=== PATIENT | male | born 1935 | race Caucasian/White ===

== ENCOUNTER → 2018-02-28 07:32 | Outpatient (CLI) | payer MEDICARE, OTHER, SELFPAY ==
[2018-02-28 09:29] LABS: Prostate Specific Antigen < 0.064 ng/mL (0.10-4.00)
== END ==
PROVIDERS: Family Provider Family Medicine; PCP Family Medicine; Visit Provider Urology
DX: C61 Malignant neoplasm of prostate (principal)
CPT/HCPCS: 36415; 84153

== ENCOUNTER → 2018-03-08 13:06 | Outpatient (CLI) | payer MEDICARE, OTHER, SELFPAY ==
--- NOTE | 2018-03-08 13:08 | DI.RAD.S_ITS ---
PROCEDURE: FL BARIUM SWALLOW W SPEECH INDICATIONS: dificulty swallowing TECHNIQUE: Examination was conducted in conjunction with speech pathology per standard protocol. In the lateral projection, filming was performed of the patient swallowing. AP projection filming may also be performed with patient swallowing. COMPARISON: None. FINDINGS: Function: The oral preparatory phase appears normal, with proper containment. The subsequent oral propulsive phase, pharyngeal phase, and esophageal phase of swallowing also appear normal with all proffered substances. No laryngotracheal penetration or aspiration. There was occasional vallecular pooling. Morphology: No cricopharyngeal bar is identified. No cervical esophageal webs. No Zenker's diverticulum. No strictures. IMPRESSION: No aspiration identified. Dictated by: Harvey Shukla M.D. on 03/08/2018 at 17:01 Approved by: Harvey Shukla M.D. on 03/08/2018 at 17:02
== END ==
PROVIDERS: Family Provider Family Medicine; PCP Family Medicine; Visit Provider Family Medicine
DX: R13.10 Dysphagia, unspecified (principal)
CPT/HCPCS: 74230; 92611

== ENCOUNTER 2018-04-14 10:43 | Emergency (ER) | payer MEDICARE, OTHER, SELFPAY ==
[2018-04-14 10:53] VITALS: BP 175/72; PULSE 55; RESP 16; TEMP 36.2; O2SAT 97; BMI 30.7
--- NOTE | 2018-04-14 11:18 | DIET.PN ---
States has had headache since spinal tap in [place] Apr 02. States h/a started 2 days after
--- NOTE | 2018-04-14 11:38 | DI.RAD.S_ITS ---
PROCEDURE: XR CHEST 1V INDICATIONS: left jaw pain - cardiac w/u TECHNIQUE: One view of the chest was acquired. COMPARISON: [facility], , CHEST 2 VIEW, 06/13/2016, 12:26. FINDINGS: Surgical changes and devices: None. Lungs and pleura: No pleural effusions or pneumothorax. There are low lung volumes with bibasilar medial opacities compatible with atelectasis or developing consolidation. Mild interstitial prominence is redemonstrated which appears chronic. Mediastinum: Mediastinal contours appear unchanged. Heart size is enlarged. Bones and chest wall: No suspicious bony lesions. Overlying soft tissues appear unremarkable. IMPRESSION: 1. Low lung volumes with medial bibasilar opacities compatible with atelectasis or developing consolidation. Dictated by: Eddie Waters M.D. on 04/14/2018 at 12:45 Approved by: Eddie Waters M.D. on 04/14/2018 at 12:46
[2018-04-14] MEDS: MAGNESIUM SULFATE 2 GM/50 ML PIGGYBACK IV (12:04)
[2018-04-14] MEDS: SODIUM CHLORIDE 0.9% 1,000 ML 1000 ML IV (12:04)
[2018-04-14] MEDS: CAFFEINE CITRATE 60 MG/3 ML VIAL IV (12:04)
[2018-04-14] MEDS: diphenhydrAMINE 50 MG/ML VIAL 25 MG IV (12:06)
[2018-04-14] MEDS: PROCHLORPERAZINE 10 MG/2 ML VIAL IV (12:06)
[2018-04-14] MEDS: KETOROLAC 60 MG/2 ML VIAL 15 MG IV (12:06)
[2018-04-14] MEDS: ACETAMINOPHEN 325 MG TABLET 650 MG PO (12:09)
[2018-04-14 12:46] VITALS: BP 182/61; PULSE 48; O2SAT 99
[2018-04-14 13:29] LABS: Alanine Aminotransferase 36 IU/L (21-72); Albumin 3.5 g/dL (3.5-5.0); Albumin Globulin Ratio 1.3 (1.0-2.8); Alkaline Phosphatase 45 U/L (38-126); Aspartate Aminotransferase 37 IU/L (17-59); Bilirubin Total 0.5 mg/dL (0.2-1.3); Blood Urea Nitrogen 24 mg/dL (9-20); Calcium 8.7 mg/dL (8.4-10.2); Carbon Dioxide 27 mmol/L (22-32); Chloride 106 mmol/L (98-107); Estimated Glomerular Filt Rate > 60.0 mL/min (>60); Globulin 2.8 g/dL (1.7-4.1); Glucose 99 mg/dL (80-110); Sodium 140 mmol/L (137-145); Total Protein 6.3 g/dL (6.3-8.2)
[2018-04-14 13:30] VITALS: BP 151/55; PULSE 45; O2SAT 95
[2018-04-14 13:32] LABS: HEMOLYSIS 51 (0-50)
[2018-04-14 13:44] LABS: Troponin I < 0.012 ng/mL (0.01-0.034)
[2018-04-14 13:45] LABS: Erythrocyte Sedimentation Rate 16 MM/HR (0-15)
[2018-04-14 14:01] LABS: Add Manual Diff / Slide Review NO; Basophils Percent Auto 0.6 % (0-2); Eosinophils Percent Auto 3.6 % (2-4); Hematocrit 38.3 % (41-53); Hemoglobin 13.2 g/dL (13.5-17.5); Lymphocytes Percent Auto 13.7 % (25-40); Mean Corpuscular HGB Conc 34.3 % (30-36); Mean Corpuscular Hemoglobin 32.8 PG (26-34); Mean Corpuscular Volume 95.6 fL (80-100); Monocytes Percent Auto 9.5 % (3-14); Neutrophils Absolute Auto 5500 /uL (3000-5900); Neutrophils Percent Auto 72.6 % (50-75); Platelet Count 153 X10^3/uL (150-400); Red Blood Cell Count 4.01 X10^6/uL (4.5-5.9); Red Cell Distribution Width 13.8 % (11.6-14.8); White Blood Cell Count 7.6 X10^3/uL (4.5-11.0)
[2018-04-14 14:38] VITALS: BP 128/41; PULSE 45; RESP 15; O2SAT 97
[2018-04-14] MEDS: DEXAMETHASONE 10 MG/ML VIAL IV (14:47)
--- NOTE | 2018-04-14 14:48 | ED_ITS ---
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 Patient was vacationing in [facility] when he developed forehead sparing left-sided facial weakness, he was hospitalized from 04/02/18 for 3 days with an evaluation included a reportedly negative CT head, MRI, and lumbar puncture followed by discharge with conservative management. During the course of his hospitalization the patient developed the present complaints, as the jaw pain was vaguely consistent with jaw discomfort he felt prior to heart attack, and as the patient did not want to extend his hospitalization [place] he These details to himself and was discharged, in the intervening time the patient's has had no change in symptoms , no worsening with physical activity. Patient notes he is also previously had jaw pain, which is similar to today's pain, and that was independent of his heart attack, headache and extensive negative evaluation including dental care and apparently resolved on its own. Patient denies discomfort on opening or closing his jaw, or clicking. M/S/F/SocHx notable for: CAD, HTN, HLD, GERD, peripheral polyneuropathy, Waters's palsy, measles, polio; remainder reviewed with patient and in chart. ROS: Negative constitutional, eye, cardiovascular, pulmonary, GI, , MSK, skin , neurologic, psychiatric, endocrine unless noted in the HPI. Exam Gen: Pleasant, non-toxic appearing, resting comfortably. HEENT: AT, TMs clear bilaterally without effusions, erythema, or lesions, preauricular, pinna, and external canal skin without lesions. Dentition intact without visible caries. No frontal or maxillary sinus TTP. Temples without TTP bilaterally, equal 2+ temporal artery pulses. No paraspinal posterior neck pain. Resp: CTAB Card: RRR GI: NT/ND : Deferred MSK: No visible deformities, strength and tone WNL. No C, T, L spine tenderness to palpation or palpable abnormalities. Skin: Normal color with no visible lesions. Back without any erythema, swelling , warmth, or soft tissue tenderness to palpation. Reported site of LP (mid thoracic region) without identifiable puncture laureano or lesion. Neuro: Gen AO x 3, no facial asymmetry, no gaze preference, no slurring of speech. CN II-III: pupils equal and reactive (->2mm bilaterally); III, IV, : EOMI, V1-V3: sensation to touch bilaterally intact; VII: no facial asymmetry ( frown / smile); VIII: no nystagmus; X: phonation intact, uvula midline; XI: trapezius 5/5 bilaterally, XII: tongue midline. Psych: Mood and affect appropriate. Labs / Imaging (pertinent): WBC 7.6, hemoglobin 13.2, ESR 16 sodium 140, potassium 5.0, troponin <0.012 CXR: low lung volumes with medial bibasilar opacities compatible with atelectasis or developing consolidation. EKG: SR 50 bpm, no ST segment elevations or depressions. Sinus arrhythmia. MDM Previous chart, nursing note, and vitals reviewed. 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 DDx: migraine / tension headache, cluster headache, sentinel bleed/SAH, infection (QUALITY ASSURANCE ENGINEER vs SEWELL secondary to non-QUALITY ASSURANCE ENGINEER focal infection), tumor/mass effect, hypertensive encephalopathy, glaucoma or iritis, idiopathic intracranial hypertension, cavernous sinus thrombosis, temporal arteritis. Evaluation: migraine/tension headache, cluster, [place] bleed, infection, mass , hypertensive encephalopathy, glaucoma, iritis, idiopathic and research attorney hypertension, thrombosis, temporal arteritis, tic douloureux, post-LP headache. ED Course: patient with a unremarkable neuro exam, given the absence of temporal tenderness, palpable abnormalities, normal pulses, and age-appropriate ESR strongly doubt temporal arteritis. Given the recent and unremarkable neuro imaging repeat imaging is not presently indicated, exam and history without evidence of tic douloureux. Cardiac equivalent considered, however given the lack of provocation with exercise, prior episodes of similar pain, and resolution with a migraine cocktail as well as a nonischemic EKG and a negative troponin's strongly doubt this represents unstable angina or ACS. Patient recommended to follow up with his PCP. Given onset of symptoms, post-LP headache appears to be most likely. Patient was given IV caffeine, Compazine, Toradol, PO acetaminophen, IV diphenhydramine, 1 L normal saline, and had resolution of headache. Patient notes that his headache wax and wane over the last week and was NSAID responsive, in an attempt to reduce rebound headache the patient given 10 mg dexamethasone prior to discharge. Patient was discharged with PCP follow-up recommended. Impression: headache (please reference below for remainder of encounter information) Related Data Home Medications Medication Instructions Recorded Confirmed [COQ10] #0 11/21/16 04/14/18 ascorbic acid (vitamin C) 500 mg PO QDAY #0 11/21/16 04/14/18 cholecalciferol (vitamin D3) 3,000 unit PO #0 11/21/16 04/14/18 [Vitamin D3] cyanocobalamin (vitamin B-12) 5,000 mcg PO #0 11/21/16 04/14/18 magnesium glycinate [Mag Glycinate] 400 mg PO #0 11/21/16 04/14/18 metoprolol tartrate 12.5 mg PO BID #0 11/21/16 04/14/18 rosuvastatin [Crestor] 5 mg PO QDAY #0 11/21/16 04/14/18 tamsulosin [Flomax] 0.4 mg PO QDAY #0 11/21/16 04/14/18 [VITAMIN K2] 100 mcg PO HS #0 03/06/17 04/14/18 Previous Rx's Medication Instructions Recorded acyclovir 400 mg tablet 400 mg PO 5XD 10 Days #50 tab 04/11/18 Allergies Allergy/AdvReac Type Severity Reaction Status Date / Time No Known Drug Allergies Allergy Verified 04/14/18 10:58 PFSH Social History marital status: Smoking Status: Former smoker alcohol intake: current substance use type: does not use Exam Initial Vital Signs Initial Vital Signs: Vital Signs Temperature 97.1 F L 04/14/18 10:53 Pulse Rate 55 L 04/14/18 10:53 Respiratory Rate 16 04/14/18 10:53 Blood Pressure 175/72 H 04/14/18 10:53 Pulse Oximetry 97 04/14/18 10:53 Course Orders Ordered: ED Orders 04/14/18 11:12 Comprehensive Metabolic Panel Stat Erythrocyte Sedimentation Rate Stat Troponin I Stat 04/14/18 11:38 XR chest 1V Stat 04/14/18 12:45 Complete Blood Count AUTO DIFF Stat Discontinued Medications Acetaminophen (Tylenol) 650 mg PO NOW ONE Stop: 04/14/18 11:39 Last Admin: 04/14/18 12:09 Dose: 650 mg Caffeine Citrate (Caffeine Citrate) 60 mg IV NOW ONE Stop: 04/14/18 11:39 Last Admin: 04/14/18 12:04 Dose: 60 mg Dexamethasone (Decadron) 10 mg IV NOW ONE Stop: 04/14/18 14:39 Last Admin: 04/14/18 14:47 Dose: 10 mg Diphenhydramine HCl (Benadryl) 25 mg IV NOW ONE Stop: 04/14/18 11:39 Last Admin: 04/14/18 12:06 Dose: 25 mg Magnesium Sulfate (Magnesium Sulfate) 2 gm in 50 mls @ 25 mls/hr IV NOW ONE Stop: 04/14/18 13:37 Last Infusion: 04/14/18 13:28 Dose: 0 mls/hr Admin: 04/14/18 12:04 Dose: 25 mls/hr Sodium Chloride (Normal Saline 0.9%) 1,000 mls @ 1,000 mls/hr IV BOLUS ONE Stop: 04/14/18 12:37 Last Infusion: 04/14/18 13:13 Dose: 0 mls/hr Admin: 04/14/18 12:04 Dose: 1,000 mls/hr Ketorolac Tromethamine (Toradol) 15 mg IV NOW ONE Stop: 04/14/18 11:39 Last Admin: 04/14/18 12:06 Dose: 15 mg Prochlorperazine (Compazine) 10 mg IV NOW ONE Stop: 04/14/18 11:39 Last Admin: 04/14/18 12:06 Dose: 10 mg Vital Signs - 8 hr 04/14/18 10:53 04/14/18 12:46 04/14/18 13:30 Temperature 97.1 F L Pulse Rate 55 L 48 L 45 L Respiratory Rate 16 Blood Pressure 175/72 H Blood Pressure [Right Arm] 182/61 H 151/55 H Pulse Oximetry 97 99 95 04/14/18 14:38 Temperature Pulse Rate 45 L Respiratory Rate 15 Blood Pressure Blood Pressure [Right Arm] 128/41 H Pulse Oximetry 97 MDM - Headache Lab Data Result diagrams: 04/14/18 12:45 04/14/18 11:12 Lab Results 04/14/18 04/14/18 04/14/18 Range/Units 11:12 11:12 11:12 WBC (4.5-11.0) X10^3/uL RBC (4.5-5.9) X10^6/uL Hgb (13.5-17.5) g/dL Hct (41-53) % MCV (80-100) fL MCH (26-34) PG MCHC (30-36) % RDW (11.6-14.8) % Plt Count (150-400) X10^3/uL Neut % (Auto) (50-75) % Lymph % (Auto) (25-40) % [place] % (Auto) (3-14) % Eos % (Auto) (2-4) % Baso % (Auto) (0-2) % Neut # (Auto) (0389-0021) /uL ESR 16 H (0-15) MM/HR Sodium 140 (137-145) mmol/L Potassium 5.0 (3.4-5.1) mmol/L Chloride 106 (98-107) mmol/L Carbon Dioxide 27 (22-32) mmol/L BUN 24 H (9-20) mg/dL Creatinine 0.80 (0.66-1.25) mg/dL Estimated GFR > 60.0 (>60) mL/min BUN/Creatinine Ratio 30.0 H (6-22) Glucose 99 (80-110) mg/dL Calcium 8.7 (8.4-10.2) mg/dL Total Bilirubin 0.5 (0.2-1.3) mg/dL AST 37 (17-59) IU/L ALT 36 (21-72) IU/L Alkaline Phosphatase 45 (38-126) U/L Troponin I < 0.012 (0.01-0.034) ng/mL Total Protein 6.3 (6.3-8.2) g/dL Albumin 3.5 (3.5-5.0) g/dL Globulin 2.8 (1.7-4.1) g/dL Albumin/Globulin Ratio 1.3 (1.0-2.8) 04/14/18 Range/Units 12:45 WBC 7.6 (4.5-11.0) X10^3/uL RBC 4.01 L (4.5-5.9) X10^6/uL Hgb 13.2 L (13.5-17.5) g/dL Hct 38.3 L (41-53) % MCV 95.6 (80-100) fL MCH 32.8 (26-34) PG MCHC 34.3 (30-36) % RDW 13.8 (11.6-14.8) % Plt Count 153 (150-400) X10^3/uL Neut % (Auto) 72.6 (50-75) % Lymph % (Auto) 13.7 L (25-40) % [place] % (Auto) 9.5 (3-14) % Eos % (Auto) 3.6 (2-4) % Baso % (Auto) 0.6 (0-2) % Neut # (Auto) 5500 (8034-0759) /uL ESR (0-15) MM/HR Sodium (137-145) mmol/L Potassium (3.4-5.1) mmol/L Chloride (98-107) mmol/L Carbon Dioxide (22-32) mmol/L BUN (9-20) mg/dL Creatinine (0.66-1.25) mg/dL Estimated GFR (>60) mL/min BUN/Creatinine Ratio (6-22) Glucose (80-110) mg/dL Calcium (8.4-10.2) mg/dL Total Bilirubin (0.2-1.3) mg/dL AST (17-59) IU/L ALT (21-72) IU/L Alkaline Phosphatase (38-126) U/L Troponin I (0.01-0.034) ng/mL Total Protein (6.3-8.2) g/dL Albumin (3.5-5.0) g/dL Globulin (1.7-4.1) g/dL Albumin/Globulin Ratio (1.0-2.8) Discharge Plan Departure Prescriptions: No Action acyclovir 400 mg tablet 400 mg PO 5XD 10 Days Qty: 50 RF: 0 tamsulosin [Flomax] 0.4 MG capsule,extended release 24hr 0.4 mg PO QDAY Qty: 0 RF: 0 [COQ10] Qty: 0 RF: 0 metoprolol tartrate 25 MG tablet 12.5 mg PO BID Qty: 0 RF: 0 cyanocobalamin (vitamin B-12) 1,000 MCG tablet extended release 5,000 mcg PO Qty: 0 RF: 0 ascorbic acid (vitamin C) 500 MG tablet 500 mg PO QDAY Qty: 0 RF: 0 rosuvastatin [Crestor] 5 MG tablet 5 mg PO QDAY Qty: 0 RF: 0 magnesium glycinate [Mag Glycinate] 100 MG tablet 400 mg PO Qty: 0 RF: 0 cholecalciferol (vitamin D3) [Vitamin D3] 2,000 UNIT capsule 3,000 unit PO Qty: 0 RF: 0 [VITAMIN K2] 100 mcg PO HS Qty: 0 RF: 0
== END 2018-04-14 15:11 | disposition home or self-care (01) ==
PROVIDERS: Emergency Provider Emergency Medicine; Family Provider Family Medicine; PCP Family Medicine
DX: R51 Headache (principal)
CPT/HCPCS: 36591; 71045; 80053; 84484; 85025; 85651; 96365; 96375; 99283; 99284; J0706; J0780; J1100; J1200; J1885

== ENCOUNTER 2018-04-16 15:30 | Outpatient (RCR) | payer MEDICARE, OTHER, SELFPAY | END 2019-01-06 16:32 | disposition home or self-care (01) | LOC: SP 15:30 | PROVIDERS: Family Provider Family Medicine; PCP Family Medicine; Visit Provider Family Medicine | DX: R49.0 Dysphonia (principal); R13.10 Dysphagia, unspecified | CPT/HCPCS: 92526 ==

== ENCOUNTER → 2018-06-14 09:14 | Outpatient (CLI) | payer MEDICARE, OTHER, SELFPAY ==
[2018-06-14 11:04] LABS: Add Manual Diff / Slide Review NO; Basophils Percent Auto 0.8 % (0-2); Eosinophils Percent Auto 2.2 % (2-4); Hematocrit 42.6 % (41-53); Hemoglobin 14.2 g/dL (13.5-17.5); Lymphocytes Percent Auto 18.2 % (25-40); Mean Corpuscular HGB Conc 33.4 % (30-36); Mean Corpuscular Hemoglobin 32.5 PG (26-34); Mean Corpuscular Volume 97.4 fL (80-100); Monocytes Percent Auto 9.9 % (3-14); Neutrophils Absolute Auto 3400 /uL (3000-5900); Neutrophils Percent Auto 68.9 % (50-75); Platelet Count 152 X10^3/uL (150-400); Red Blood Cell Count 4.38 X10^6/uL (4.5-5.9); Red Cell Distribution Width 13.4 % (11.6-14.8); White Blood Cell Count 4.9 X10^3/uL (4.5-11.0)
[2018-06-14 11:30] LABS: Blood Urea Nitrogen 24 mg/dL (9-20); Calcium 8.5 mg/dL (8.4-10.2); Carbon Dioxide 21 mmol/L (22-32); Chloride 106 mmol/L (98-107); Cholesterol 169 mg/dL (140-199); Estimated Glomerular Filt Rate > 60.0 mL/min (>60); Glucose 101 mg/dL (80-110); HDL Cholesterol 65 mg/dL (40-60); LDL Cholesterol Calculated 90 mg/dL (<100); Sodium 140 mmol/L (137-145); Triglycerides 68 mg/dL (35-150)
[2018-06-14 11:34] LABS: HEMOLYSIS 106 (0-50)
== END ==
PROVIDERS: PCP Family Medicine; Visit Provider Internal Medicine Cardiovascular Disease
DX: I10 Essential (primary) hypertension (principal)
CPT/HCPCS: 36415; 80048; 80061; 85025

== ENCOUNTER → 2018-12-16 11:10 | Outpatient (CLI) | payer MEDICARE, OTHER, SELFPAY ==
[2018-12-16 13:21] LABS: Vitamin B12 > 1000 pg/mL (239-931)
[2018-12-19 05:59] LABS: Vitamin B6 37.3 ng/mL (2.1-21.7)
== END ==
PROVIDERS: PCP Nurse Practitioner Family; Visit Provider Nurse Practitioner Family
DX: G62.9 Polyneuropathy, unspecified (principal)
CPT/HCPCS: 36415; 82607; 84207

== ENCOUNTER 2018-12-18 09:03 | Observation (INO) | payer MEDICARE, OTHER, SELFPAY ==
[2018-12-18] VITALS (11 sets, daily range): BP systolic 117–167; BP diastolic 51–78; PULSE 55–78; RESP 13–21; TEMP 36.2–36.6; O2SAT 94–99; BMI 29.0
--- NOTE | 2018-12-18 09:56 | ED.GIBLEED ---
HPI - GI Bleed General Chief complaint: GI Bleed Stated complaint: RECTAL BLEEDING Time Seen by Provider: 12/18/18 09:46 Source: patient Mode of arrival: ambulatory Limitations: no limitations History of Present Illness HPI Narrative: Patient 83-year-old gentleman who presents with bright red blood per rectum. He states he was constipated for a while he took milk of magnesia to help with constipation which it did. He took a couple of times once yesterday as well. This morning he woke up at 3:00 a.m. that he would have another bowel movement and then it was suddenly bloody. He now has no morning he is wearing a depends depends is grossly positive for blood. He does take aspirin daily has a history of cardiac stents. He has no syncopal episodes or presyncope. No chest pain or shortness of breath. he has no abdominal pain and no warning. No history of hemorrhoids MD complaint: gross hematochezia Severity: mild Relieving factors: none Exacerbating factors: none Associated symptoms: denies other symptoms Related Data Home Medications Medication Instructions Recorded Confirmed CoQ-10 400 mg PO QPM #0 11/21/16 12/18/18 Mag Glycinate 400 mg PO DAILY #0 11/21/16 12/18/18 ascorbic acid (vitamin C) 500 mg PO DAILY #0 11/21/16 12/18/18 tamsulosin [Flomax] 0.8 mg PO QPM #0 11/21/16 12/18/18 [VITAMIN K2] 100 mcg PO QPM #0 03/06/17 12/18/18 alpha lipoic acid 600 mg capsule 600 mg PO DAILY 12/11/18 12/18/18 aspirin 81 mg tablet,delayed 81 mg PO DAILY 12/11/18 12/18/18 release atorvastatin 10 mg tablet 5 mg PO BEDTIME tab 12/11/18 12/18/18 lisinopril 20 mg tablet 20 mg PO QPM 12/11/18 12/18/18 nitroglycerin 0.4 mg sublingual 0.4 mg SL Q5-15M PRN 12/11/18 12/18/18 tablet rosuvastatin 5 mg tablet 2.5 mg PO 3XW #0 tab 12/11/18 12/18/18 solifenacin 10 mg tablet 10 mg PO DAILY 12/11/18 12/18/18 Nerve Support Formula 1 dose PO DAILY 12/18/18 12/18/18 Vitamin D3 1,500 units PO DAILY 12/18/18 12/18/18 cyanocobalamin (vitamin B-12) 5,000 mcg SUBLINGUAL DAILY 12/18/18 12/18/18 [Vitamin B-12] metoprolol succinate 25 mg PO DAILY 12/18/18 12/18/18 Allergies Allergy/AdvReac Type Severity Reaction Status Date / Time No Known Drug Allergies Allergy Verified 12/18/18 09:24 Review of Systems Review of Systems ROS Unobtainable: All systems reviewed & are unremarkable except as noted in HPI and below Constitutional Denies chills, Denies fever(s), Denies lethargy and Denies weakness Eyes Denies change in vision, Denies eye discharge, Denies irritation and Denies loss of vision Cardiovascular Denies chest pain, Denies irregular heart rhythm, Denies lightheadedness, Denies palpitations, Denies dyspnea, Denies dyspnea on exertion and Denies orthopnea Respiratory Denies cough, Denies dyspnea, Denies dyspnea on exertion and Denies wheezing Gastrointestinal Gastrointestinal: Reports as per HPI Musculoskeletal Denies back pain, Denies muscle weakness, Denies numbness and Denies tingling Integumentary/Breasts Denies pruritus, Denies erythema, Denies rash and Denies wounds Neurologic Denies loss of vision, Denies numbness, Denies tingling and Denies weakness Endocrine Denies palpitations Allergic/Immunologic Denies wheezing [facility] Medical History Non-allergic rhinitis (Chronic) Balance problems (Chronic 02/08/16) Coronary artery disease involving [place] coronary artery of [place] heart without angina pectoris (Chronic 02/08/16) Essential hypertension (Chronic 02/08/16) History of malignant neoplasm of prostate (Chronic 04/08/15) Pure hypercholesterolemia (Chronic 02/08/16) Spinal stenosis of lumbar region (Chronic 02/08/16) Statin intolerance (Chronic 02/08/16) Gastroesophageal reflux disease (Chronic 06/13/16) Fatigue (Chronic 08/03/16) Dysphagia (Chronic 09/04/16) Vitamin D deficiency (Chronic 11/21/16) Left foot drop (Chronic 03/06/17) Peripheral polyneuropathy (Chronic 03/06/17) Coronary artery disease (Chronic 2009) GERD (gastroesophageal reflux disease) (Chronic Unknown) Hearing loss (Chronic 2015) Hypercholesterolemia (Chronic Unknown) Hypertension (Chronic Unknown) Lumbar disc disease (Chronic 2013) Spinal stenosis (Chronic Unknown) Chickenpox (Resolved) Hx of myocardial infarction (Resolved Unknown) Measles (Resolved) Polio (Resolved 1950) Prostate cancer (Resolved 2008) Headache (Inactive) Surgical History History of prostate surgery (Resolved 2009) Hx of heart surgery (Resolved 2008) Hx of hernia repair (Resolved Unknown) Status post laminectomy Family History Father No problems noted. Mother Cancer Grandfather No problems noted. Grandmother No problems noted. Grandfather No problems noted. Grandmother Cancer Social History marital status: Smoking Status: Former smoker second hand exposure: No alcohol intake: current substance use type: does not use Family History Father No problems noted. Mother Cancer Grandfather No problems noted. Grandmother No problems noted. Grandfather No problems noted. Grandmother Cancer Social History marital status: household members: none Smoking Status: Former smoker second hand exposure: No alcohol intake: current substance use type: does not use Comment: PCP: Loan Gomez Exam Initial Vital Signs Initial Vital Signs: Vital Signs Temperature 97.7 F 12/18/18 09:24 Pulse Rate 78 12/18/18 09:24 Respiratory Rate 20 12/18/18 09:24 Blood Pressure 117/59 L 12/18/18 09:24 Pulse Oximetry 96 12/18/18 09:24 GENERAL: Alert very nice elderly male no acute distress HEENT: Head atraumatic,EOMI, pupils reactive, face symmetri CARDIOVASCULAR: Regular rate and rhythm without murmurs, rubs or gallops. RESPIRATORY: Breath sounds equal bilaterally, no wheezes rales or rhonchi. ABDOMEN: Soft, nontender. Normoactive bowel sounds all 4 quadrants. No guarding or rebound. RECTAL: Grossly positive no external hemorrhoids no internal hemorrhoids appreciated EXTREMITIES: Normal range of motion, no clubbing or edema. Neurovascularly intact NEUROLOGICAL: Alert and oriented x4.Normal gait and speech. Cranial nerves II through XII grossly intact. SKIN: Warm, dry, no laceration, no petechiae, no rashes or lesions. Course Orders Ordered: ED Orders 12/18/18 10:10 Complete Blood Count AUTO DIFF Stat Comprehensive Metabolic Panel Stat Partial Thromboplastin Time Stat Prothrombin Time INR Stat Type and Screen Stat 12/18/18 12:50 Hematocrit Stat 12/18/18 13:25 XR chest 1V Stat Discontinued Medications Polyethylene Glycol/Electrolytes (Golytely Solution) 4,000 ml PO NOW ONE Stop: 12/18/18 13:16 Vital Signs - 8 hr 12/18/18 09:24 12/18/18 10:30 12/18/18 11:00 Temperature 97.7 F Pulse Rate 78 65 55 L Respiratory Rate 20 20 13 Blood Pressure 117/59 L Blood Pressure [Right Arm] 121/51 L 132/63 Pulse Oximetry 96 97 94 12/18/18 12:05 12/18/18 12:20 12/18/18 12:50 Temperature Pulse Rate 67 66 65 Respiratory Rate 21 16 19 Blood Pressure Blood Pressure [Right Arm] 126/57 L 126/57 L 136/52 L Pulse Oximetry 96 96 12/18/18 13:32 12/18/18 14:22 Temperature 97.5 F L Pulse Rate 64 67 Respiratory Rate 18 18 Blood Pressure 140/78 Blood Pressure [Right Arm] 140/60 Pulse Oximetry 97 99 MDM - GI Bleed Lab Data Attestation: I reviewed the patient's lab results. Result diagrams: 12/18/18 12:50 12/18/18 10:10 Lab Results 12/18/18 12/18/18 12/18/18 Range/Units 10:10 10:10 10:10 WBC 6.6 (4.5-11.0) X10^3/uL RBC 4.12 L (4.5-5.9) X10^6/uL Hgb 13.4 L (13.5-17.5) g/dL Hct 39.7 L (41-53) % MCV 96.3 (80-100) fL MCH 32.4 (26-34) PG MCHC 33.7 (30-36) % RDW 13.4 (11.6-14.8) % Plt Count 135 L (150-400) X10^3/uL Neut % (Auto) 80.3 H (50-75) % Lymph % (Auto) 10.7 L (25-40) % [place] % (Auto) 7.6 (3-14) % Eos % (Auto) 1.0 L (2-4) % Baso % (Auto) 0.4 (0-2) % Neut # (Auto) 5300 (9985-6365) /uL Lymph # (Auto) 700 L (4198-6138) /uL [place] # (Auto) 500 (0-900) /uL Eos # (Auto) 100 (0-450) /uL Baso # (Auto) 0 (0-100) /uL PT 11.7 (10.1-12.7) SECONDS INR 1.0 (0.9-1.3) APTT 30 (26.4-36.2) SECONDS Sodium 139 (137-145) mmol/L Potassium 4.2 (3.4-5.1) mmol/L Chloride 109 H (98-107) mmol/L Carbon Dioxide 22 (22-32) mmol/L BUN 24 H (9-20) mg/dL Creatinine 0.70 (0.66-1.25) mg/dL Estimated GFR > 60.0 (>60) mL/min BUN/Creatinine Ratio 34.3 H (6-22) Glucose 120 H (80-110) mg/dL Calcium 8.7 (8.4-10.2) mg/dL Total Bilirubin 0.3 (0.2-1.3) mg/dL AST 23 (17-59) IU/L ALT 27 (21-72) IU/L Alkaline Phosphatase 53 (38-126) U/L Total Protein 6.5 (6.3-8.2) g/dL Albumin 3.8 (3.5-5.0) g/dL Globulin 2.7 (1.7-4.1) g/dL Albumin/Globulin Ratio 1.4 (1.0-2.8) Blood Type Antibody Screen 12/18/18 12/18/18 Range/Units 10:10 12:50 WBC (4.5-11.0) X10^3/uL RBC (4.5-5.9) X10^6/uL Hgb (13.5-17.5) g/dL Hct 40.8 L (41-53) % MCV (80-100) fL MCH (26-34) PG MCHC (30-36) % RDW (11.6-14.8) % Plt Count (150-400) X10^3/uL Neut % (Auto) (50-75) % Lymph % (Auto) (25-40) % [place] % (Auto) (3-14) % Eos % (Auto) (2-4) % Baso % (Auto) (0-2) % Neut # (Auto) (8401-7720) /uL Lymph # (Auto) (4971-4103) /uL [place]geman # (Auto) (0-900) /uL Eos # (Auto) (0-450) /uL Baso # (Auto) (0-100) /uL PT (10.1-12.7) SECONDS INR (0.9-1.3) APTT (26.4-36.2) SECONDS Sodium (137-145) mmol/L Potassium (3.4-5.1) mmol/L Chloride (98-107) mmol/L Carbon Dioxide (22-32) mmol/L BUN (9-20) mg/dL Creatinine (0.66-1.25) mg/dL Estimated GFR (>60) mL/min BUN/Creatinine Ratio (6-22) Glucose (80-110) mg/dL Calcium (8.4-10.2) mg/dL Total Bilirubin (0.2-1.3) mg/dL AST (17-59) IU/L ALT (21-72) IU/L Alkaline Phosphatase (38-126) U/L Total Protein (6.3-8.2) g/dL Albumin (3.5-5.0) g/dL Globulin (1.7-4.1) g/dL Albumin/Globulin Ratio (1.0-2.8) Blood Type A Positive Antibody Screen Negative MDM Narrative Medical decision making narrative: I spoke with , surgery was in ADT seen evaluate patient. Performed anal scope in the ED. Request the patient have colonoscopy and be admitted to Medicine. Colonoscopy will likely be this evening. Dr. Waters happily accepts patient observation Discharge Plan Departure Patient Disposition: Admitted as Observation Clinical Impression: Acute GI bleeding Discharge Date/Time: 12/18/18 13:49 Interventions: ED Discharge Assessment Last Done: 12/18/18 13:49 Admit Date/Time: 12/18/18 13:43 Admit Provider: Letty Waters
--- NOTE | 2018-12-18 10:01 | ED_ITS ---
HPI - GI Bleed General Chief complaint: GI Bleed Stated complaint: RECTAL BLEEDING Time Seen by Provider: 12/18/18 09:46 Source: patient Mode of arrival: ambulatory Limitations: no limitations History of Present Illness HPI Narrative: Patient 83-year-old gentleman who presents with bright red blood per rectum. He states he was constipated for a while he took milk of magnesia to help with constipation which it did. He took a couple of times once yesterday as well. This morning he woke up at 3:00 a.m. that he would have another bowel movement and then it was suddenly bloody. He now has no morning he is wearing a depends depends is grossly positive for blood. He does take aspirin daily has a history of cardiac stents. He has no syncopal episodes or presyncope. No chest pain or shortness of breath. he has no abdominal pain and no warning. No history of hemorrhoids MD complaint: gross hematochezia Severity: mild Relieving factors: none Exacerbating factors: none Associated symptoms: denies other symptoms Related Data Home Medications Medication Instructions Recorded Confirmed CoQ-10 400 mg PO QPM #0 11/21/16 12/18/18 Mag Glycinate 400 mg PO DAILY #0 11/21/16 12/18/18 ascorbic acid (vitamin C) 500 mg PO DAILY #0 11/21/16 12/18/18 tamsulosin [Flomax] 0.8 mg PO QPM #0 11/21/16 12/18/18 [VITAMIN K2] 100 mcg PO QPM #0 03/06/17 12/18/18 alpha lipoic acid 600 mg capsule 600 mg PO DAILY 12/11/18 12/18/18 aspirin 81 mg tablet,delayed 81 mg PO DAILY 12/11/18 12/18/18 release atorvastatin 10 mg tablet 5 mg PO BEDTIME tab 12/11/18 12/18/18 lisinopril 20 mg tablet 20 mg PO QPM 12/11/18 12/18/18 nitroglycerin 0.4 mg sublingual 0.4 mg SL Q5-15M PRN 12/11/18 12/18/18 tablet rosuvastatin 5 mg tablet 2.5 mg PO 3XW #0 tab 12/11/18 12/18/18 solifenacin 10 mg tablet 10 mg PO DAILY 12/11/18 12/18/18 Nerve Support Formula 1 dose PO DAILY 12/18/18 12/18/18 Vitamin D3 1,500 units PO DAILY 12/18/18 12/18/18 cyanocobalamin (vitamin B-12) 5,000 mcg SUBLINGUAL DAILY 12/18/18 12/18/18 [Vitamin B-12] metoprolol succinate 25 mg PO DAILY 12/18/18 12/18/18 Allergies Allergy/AdvReac Type Severity Reaction Status Date / Time No Known Drug Allergies Allergy Verified 12/18/18 09:24 Review of Systems Review of Systems ROS Unobtainable: All systems reviewed & are unremarkable except as noted in HPI and below Constitutional Denies chills, Denies fever(s), Denies lethargy and Denies weakness Eyes Denies change in vision, Denies eye discharge, Denies irritation and Denies loss of vision Cardiovascular Denies chest pain, Denies irregular heart rhythm, Denies lightheadedness, Denies palpitations, Denies dyspnea, Denies dyspnea on exertion and Denies orthopnea Respiratory Denies cough, Denies dyspnea, Denies dyspnea on exertion and Denies wheezing Gastrointestinal Gastrointestinal: Reports as per HPI Musculoskeletal Denies back pain, Denies muscle weakness, Denies numbness and Denies tingling Integumentary/Breasts Denies pruritus, Denies erythema, Denies rash and Denies wounds Neurologic Denies loss of vision, Denies numbness, Denies tingling and Denies weakness Endocrine Denies palpitations Allergic/Immunologic Denies wheezing [facility] Medical History Non-allergic rhinitis (Chronic) Balance problems (Chronic 02/08/16) Coronary artery disease involving [place] coronary artery of [place] heart without angina pectoris (Chronic 02/08/16) Essential hypertension (Chronic 02/08/16) History of malignant neoplasm of prostate (Chronic 04/08/15) Pure hypercholesterolemia (Chronic 02/08/16) Spinal stenosis of lumbar region (Chronic 02/08/16) Statin intolerance (Chronic 02/08/16) Gastroesophageal reflux disease (Chronic 06/13/16) Fatigue (Chronic 08/03/16) Dysphagia (Chronic 09/04/16) Vitamin D deficiency (Chronic 11/21/16) Left foot drop (Chronic 03/06/17) Peripheral polyneuropathy (Chronic 03/06/17) Coronary artery disease (Chronic 2009) GERD (gastroesophageal reflux disease) (Chronic Unknown) Hearing loss (Chronic 2015) Hypercholesterolemia (Chronic Unknown) Hypertension (Chronic Unknown) Lumbar disc disease (Chronic 2013) Spinal stenosis (Chronic Unknown) Chickenpox (Resolved) Hx of myocardial infarction (Resolved Unknown) Measles (Resolved) Polio (Resolved 1950) Prostate cancer (Resolved 2008) Headache (Inactive) Surgical History History of prostate surgery (Resolved 2009) Hx of heart surgery (Resolved 2008) Hx of hernia repair (Resolved Unknown) Status post laminectomy Family History Father No problems noted. Mother Cancer Grandfather No problems noted. Grandmother No problems noted. Grandfather No problems noted. Grandmother Cancer Social History marital status: Smoking Status: Former smoker second hand exposure: No alcohol intake: current substance use type: does not use Family History Father No problems noted. Mother Cancer Grandfather No problems noted. Grandmother No problems noted. Grandfather No problems noted. Grandmother Cancer Social History marital status: household members: none Smoking Status: Former smoker second hand exposure: No alcohol intake: current substance use type: does not use Comment: PCP: Loan Gomez Exam Initial Vital Signs Initial Vital Signs: Vital Signs Temperature 97.7 F 12/18/18 09:24 Pulse Rate 78 12/18/18 09:24 Respiratory Rate 20 12/18/18 09:24 Blood Pressure 117/59 L 12/18/18 09:24 Pulse Oximetry 96 12/18/18 09:24 GENERAL: Alert very nice elderly male no acute distress HEENT: Head atraumatic,EOMI, pupils reactive, face symmetri CARDIOVASCULAR: Regular rate and rhythm without murmurs, rubs or gallops. RESPIRATORY: Breath sounds equal bilaterally, no wheezes rales or rhonchi. ABDOMEN: Soft, nontender. Normoactive bowel sounds all 4 quadrants. No g uarding or rebound. RECTAL: Grossly positive no external hemorrhoids no internal hemorrhoids apprec iated EXTREMITIES: Normal range of motion, no clubbing or edema. Neurovascularly intact NEUROLOGICAL: Alert and oriented x4.Normal gait and speech. Cranial nerves II through XII grossly intact. SKIN: Warm, dry, no laceration, no petechiae, no rashes or lesions. Course Orders Ordered: ED Orders 12/18/18 10:10 Complete Blood Count AUTO DIFF Stat Comprehensive Metabolic Panel Stat Partial Thromboplastin Time Stat Prothrombin Time INR Stat Type and Screen Stat 12/18/18 12:50 Hematocrit Stat 12/18/18 13:25 XR chest 1V Stat Discontinued Medications Polyethylene Glycol/Electrolytes (Golytely Solution) 4,000 ml PO NOW ONE Stop: 12/18/18 13:16 Vital Signs - 8 hr 12/18/18 09:24 12/18/18 10:30 12/18/18 11:00 Temperature 97.7 F Pulse Rate 78 65 55 L Respiratory Rate 20 20 13 Blood Pressure 117/59 L Blood Pressure [Right Arm] 121/51 L 132/63 Pulse Oximetry 96 97 94 12/18/18 12:05 12/18/18 12:20 12/18/18 12:50 Temperature Pulse Rate 67 66 65 Respiratory Rate 21 16 19 Blood Pressure Blood Pressure [Right Arm] 126/57 L 126/57 L 136/52 L Pulse Oximetry 96 96 12/18/18 13:32 12/18/18 14:22 Temperature 97.5 F L Pulse Rate 64 67 Respiratory Rate 18 18 Blood Pressure 140/78 Blood Pressure [Right Arm] 140/60 Pulse Oximetry 97 99 MDM - GI Bleed Lab Data Attestation: I reviewed the patient's lab results. Result diagrams: 12/18/18 12:50 12/18/18 10:10 Lab Results 12/18/18 12/18/18 12/18/18 Range/Units 10:10 10:10 10:10 WBC 6.6 (4.5-11.0) X10^3/uL RBC 4.12 L (4.5-5.9) X10^6/uL Hgb 13.4 L (13.5-17.5) g/dL Hct 39.7 L (41-53) % MCV 96.3 (80-100) fL MCH 32.4 (26-34) PG MCHC 33.7 (30-36) % RDW 13.4 (11.6-14.8) % Plt Count 135 L (150-400) X10^3/uL Neut % (Auto) 80.3 H (50-75) % Lymph % (Auto) 10.7 L (25-40) % [place] % (Auto) 7.6 (3-14) % Eos % (Auto) 1.0 L (2-4) % Baso % (Auto) 0.4 (0-2) % Neut # (Auto) 5300 (2139-7435) /uL Lymph # (Auto) 700 L (6938-3880) /uL [place] # (Auto) 500 (0-900) /uL Eos # (Auto) 100 (0-450) /uL Baso # (Auto) 0 (0-100) /uL PT 11.7 (10.1-12.7) SECONDS INR 1.0 (0.9-1.3) APTT 30 (26.4-36.2) SECONDS Sodium 139 (137-145) mmol/L Potassium 4.2 (3.4-5.1) mmol/L Chloride 109 H (98-107) mmol/L Carbon Dioxide 22 (22-32) mmol/L BUN 24 H (9-20) mg/dL Creatinine 0.70 (0.66-1.25) mg/dL Estimated GFR > 60.0 (>60) mL/min BUN/Creatinine Ratio 34.3 H (6-22) Glucose 120 H (80-110) mg/dL Calcium 8.7 (8.4-10.2) mg/dL Total Bilirubin 0.3 (0.2-1.3) mg/dL AST 23 (17-59) IU/L ALT 27 (21-72) IU/L Alkaline Phosphatase 53 (38-126) U/L Total Protein 6.5 (6.3-8.2) g/dL Albumin 3.8 (3.5-5.0) g/dL Globulin 2.7 (1.7-4.1) g/dL Albumin/Globulin Ratio 1.4 (1.0-2.8) Blood Type Antibody Screen 12/18/18 12/18/18 Range/Units 10:10 12:50 WBC (4.5-11.0) X10^3/uL RBC (4.5-5.9) X10^6/uL Hgb (13.5-17.5) g/dL Hct 40.8 L (41-53) % MCV (80-100) fL MCH (26-34) PG MCHC (30-36) % RDW (11.6-14.8) % Plt Count (150-400) X10^3/uL Neut % (Auto) (50-75) % Lymph % (Auto) (25-40) % [place] % (Auto) (3-14) % Eos % (Auto) (2-4) % Baso % (Auto) (0-2) % Neut # (Auto) (1236-7369) /uL Lymph # (Auto) (8515-8257) /uL [place] # (Auto) (0-900) /uL Eos # (Auto) (0-450) /uL Baso # (Auto) (0-100) /uL PT (10.1-12.7) SECONDS INR (0.9-1.3) APTT (26.4-36.2) SECONDS Sodium (137-145) mmol/L Potassium (3.4-5.1) mmol/L Chloride (98-107) mmol/L Carbon Dioxide (22-32) mmol/L BUN (9-20) mg/dL Creatinine (0.66-1.25) mg/dL Estimated GFR (>60) mL/min BUN/Creatinine Ratio (6-22) Glucose (80-110) mg/dL Calcium (8.4-10.2) mg/dL Total Bilirubin (0.2-1.3) mg/dL AST (17-59) IU/L ALT (21-72) IU/L Alkaline Phosphatase (38-126) U/L Total Protein (6.3-8.2) g/dL Albumin (3.5-5.0) g/dL Globulin (1.7-4.1) g/dL Albumin/Globulin Ratio (1.0-2.8) Blood Type A Positive Antibody Screen Negative MDM Narrative Medical decision making narrative: I spoke with , surgery was in ADT seen evaluate patient. Performed anal scope in the ED. Request the patient have colonoscopy and be admitted to Medicine. Colonoscopy will likely be this evening. Dr. Waters happily accepts patient observation Discharge Plan Departure Patient Disposition: Admitted as Observation Clinical Impression: Acute GI bleeding Discharge Date/Time: 12/18/18 13:49 Interventions: ED Discharge Assessment Last Done: 12/18/18 13:49 Admit Date/Time: 12/18/18 13:43 Admit Provider: Letty Waters
[2018-12-18 10:25] LABS: Add Manual Diff / Slide Review NO; Basophils Absolute Auto 0 /uL (0-100); Basophils Percent Auto 0.4 % (0-2); Eosinophils Absolute Auto 100 /uL (0-450); Hematocrit 39.7 % (41-53); Hemoglobin 13.4 g/dL (13.5-17.5); Lymphocytes Absolute Auto 700 /uL (1100-4500); Lymphocytes Percent Auto 10.7 % (25-40); Mean Corpuscular HGB Conc 33.7 % (30-36); Mean Corpuscular Hemoglobin 32.4 PG (26-34); Mean Corpuscular Volume 96.3 fL (80-100); Monocytes Absolute Auto 500 /uL (0-900); Monocytes Percent Auto 7.6 % (3-14); Neutrophils Absolute Auto 5300 /uL (1500-7000); Neutrophils Percent Auto 80.3 % (50-75); Platelet Count 135 X10^3/uL (150-400); Red Blood Cell Count 4.12 X10^6/uL (4.5-5.9); Red Cell Distribution Width 13.4 % (11.6-14.8); White Blood Cell Count 6.6 X10^3/uL (4.5-11.0)
[2018-12-18 10:33] LABS: Prothrombin Time 11.7 SECONDS (10.1-12.7)
--- NOTE | 2018-12-18 10:33 | PC.NURSE ---
pt states he's been constipated for a few days, has visited with pcp this week.
[2018-12-18 10:36] LABS: PTT Partial Thromboplastin Tim 30 SECONDS (26.4-36.2)
[2018-12-18 10:38] LABS: Alanine Aminotransferase 27 IU/L (21-72); Albumin 3.8 g/dL (3.5-5.0); Albumin Globulin Ratio 1.4 (1.0-2.8); Alkaline Phosphatase 53 U/L (38-126); Aspartate Aminotransferase 23 IU/L (17-59); BUN Creatinine Ratio 34.3 (6-22); Bilirubin Total 0.3 mg/dL (0.2-1.3); Blood Urea Nitrogen 24 mg/dL (9-20); Calcium 8.7 mg/dL (8.4-10.2); Carbon Dioxide 22 mmol/L (22-32); Chloride 109 mmol/L (98-107); Estimated Glomerular Filt Rate > 60.0 mL/min (>60); Globulin 2.7 g/dL (1.7-4.1); Glucose 120 mg/dL (80-110); HEMOLYSIS < 15 (0-50); Potassium 4.2 mmol/L (3.4-5.1); Sodium 139 mmol/L (137-145); Total Protein 6.5 g/dL (6.3-8.2)
--- NOTE | 2018-12-18 12:48 | PM.CN ---
History of Present Illness Date Patient Seen: 12/18/18 Time Patient Seen: 12:00 Chief complaint: RECTAL BLEEDING Reason for consult: rectal bleeding Narrative: 83M with hx of CAD s/p TN and PCI x5 2009 on BB presents with BRBPR. Hx of constipation for some time in this setting had recently stared MOM clean out with bowel out some 20hrs ago. At 3am today began to pass moderately large amount of blood mixed with stool. Approx 4 bm up until 8 am today. Some with clots. None dark colored. Mild associated LLQ discomfort but no pain. Denies presyncopy symptoms, clear thought. No SOB no light headedness. Initial HR 55 with BP 132/63 Pt had colonoscopy ~6yrs ago at OSH per pt report no abnormalities No fam hx of colon cancer or IBD On ASA 81, no anticoagulation INR 1, hct 39 with repeat pending [facility] Medical History Non-allergic rhinitis (Chronic) Balance problems (Chronic 02/08/16) Coronary artery disease involving [place] coronary artery of [place] heart without angina pectoris (Chronic 02/08/16) Essential hypertension (Chronic 02/08/16) History of malignant neoplasm of prostate (Chronic 04/08/15) Pure hypercholesterolemia (Chronic 02/08/16) Spinal stenosis of lumbar region (Chronic 02/08/16) Statin intolerance (Chronic 02/08/16) Gastroesophageal reflux disease (Chronic 06/13/16) Fatigue (Chronic 08/03/16) Dysphagia (Chronic 09/04/16) Vitamin D deficiency (Chronic 11/21/16) Left foot drop (Chronic 03/06/17) Peripheral polyneuropathy (Chronic 03/06/17) Coronary artery disease (Chronic 2008) GERD (gastroesophageal reflux disease) (Chronic Unknown) Hearing loss (Chronic 2014) Hypercholesterolemia (Chronic Unknown) Hypertension (Chronic Unknown) Lumbar disc disease (Chronic 2012) Spinal stenosis (Chronic Unknown) Chickenpox (Resolved) Hx of myocardial infarction (Resolved Unknown) Measles (Resolved) Polio (Resolved 1949) Prostate cancer (Resolved 2008) Headache (Inactive) Surgical History History of prostate surgery (Resolved 2009) Hx of heart surgery (Resolved 2008) Hx of hernia repair (Resolved Unknown) Status post laminectomy Family History Father No problems noted. Mother Cancer Grandfather No problems noted. Grandmother No problems noted. Grandfather No problems noted. Grandmother Cancer Social History marital status: Smoking Status: Former smoker second hand exposure: No alcohol intake: current substance use type: does not use Family History Father No problems noted. Mother Cancer Grandfather No problems noted. Grandmother No problems noted. Grandfather No problems noted. Grandmother Cancer Social History marital status: Smoking Status: Former smoker second hand exposure: No alcohol intake: current substance use type: does not use Meds Home Medications Medication Instructions Recorded Confirmed Type CoQ-10 400 mg PO QPM #0 11/21/16 12/18/18 History Mag Glycinate 400 mg PO DAILY #0 11/21/16 12/18/18 History ascorbic acid (vitamin C) 500 mg PO DAILY #0 11/21/16 12/18/18 History tamsulosin [Flomax] 0.8 mg PO QPM #0 11/21/16 12/18/18 History [VITAMIN K2] 100 mcg PO QPM #0 03/06/17 12/18/18 History alpha lipoic acid 600 mg capsule 600 mg PO DAILY 12/11/18 12/18/18 History aspirin 81 mg tablet,delayed 81 mg PO DAILY 12/11/18 12/18/18 History release atorvastatin 10 mg tablet 5 mg PO BEDTIME tab 12/11/18 12/18/18 History lisinopril 20 mg tablet 20 mg PO QPM 12/11/18 12/18/18 History nitroglycerin 0.4 mg sublingual 0.4 mg SL Q5-15M PRN 12/11/18 12/18/18 History tablet rosuvastatin 5 mg tablet 2.5 mg PO 3XW #0 tab 12/11/18 12/18/18 History solifenacin 10 mg tablet 10 mg PO DAILY 12/11/18 12/18/18 History Nerve Support Formula 1 dose PO DAILY 12/18/18 12/18/18 History Vitamin D3 1,500 units PO DAILY 12/18/18 12/18/18 History cyanocobalamin (vitamin B-12) 5,000 mcg SUBLINGUAL DAILY 12/18/18 12/18/18 History [Vitamin B-12] metoprolol succinate 25 mg PO DAILY 12/18/18 12/18/18 History Allergies Allergy/AdvReac Type Severity Reaction Status Date / Time No Known Drug Allergies Allergy Verified 12/18/18 09:24 Review of Systems Constitutional Constitutional: Denies fever(s) Eyes Eyes: Denies bulging eyes ENT Ears, Nose, Mouth, and Throat: No lip swelling Cardiovascular Cardiovascular: Denies generalize swelling Respiratory Respiratory: Denies stridor Gastrointestinal Gastrointestinal: Denies coffee ground emesis Musculoskeletal Musculoskeletal: Denies loss of height Integumentary/Breasts Skin/Breast: Denies wounds Neurologic Neurologic: Denies abnormal speech and Denies confusion Psychiatric Psychiatric: Denies confusion Endocrine Endocrine: Denies deepening of the voice Hematologic/Lymphatic Hematologic/Lymphatic: Denies lymphadenopathy Allergic/Immunologic Allergic/Immunologic: Denies lip swelling Exam Vital Signs (past 8 hours): - 12/18/18 09:24 12/18/18 10:30 12/18/18 11:00 Temperature 97.7 F Pulse Rate 78 65 55 L Respiratory Rate 20 20 13 Blood Pressure 117/59 L Blood Pressure [Right Arm] 121/51 L 132/63 Pulse Oximetry 96 97 94 12/18/18 12:05 Temperature Pulse Rate 67 Respiratory Rate 21 Blood Pressure Blood Pressure [Right Arm] 126/57 L Pulse Oximetry 96 Oxygen Delivery Method Room Air Const General: cooperative and No healthy appearing Orientation: alert [facility] Head: normal to inspection Nose: nares normal Mouth: oral mucosae normal and lip normal Eyes Eyelids: eyelids normal Conjunctivae: conjunctivae normal Sclera: sclerae normal Neck Neck: supple and other (No thyromegally) Chest Chest: other (LCTAB , regular respiratory effort) Cardio Rhythm: regular rhythm Heart Sounds: S1 normal, S2 normal, no gallops, no murmurs and no rubs GI Other: Abdomen rotund without surgical scars, dull to percussion, non tender to percussion, BS pressent. No HSM. Tender to palpation midly in LLQ. Rectal exam: small LL hemorrhoids grade I, with anaoscope slightly dark blood stained fluid from distal rectum. No active bleeding for anal canal or proximal rectum. No bleeding hemorrhoids. Skin General: no rashes or lesions noted Neuro General: alert and awake Psych Appearance: grossly normal Affect: normal affect Objective Labs Result Diagrams: 12/18/18 12:50 12/18/18 10:10 Labs: Laboratory Results - last 24 hr 12/18/18 12/18/18 12/18/18 10:10 10:10 10:10 WBC 6.6 RBC 4.12 L Hgb 13.4 L Hct 39.7 L MCV 96.3 MCH 32.4 MCHC 33.7 RDW 13.4 Plt Count 135 L Neut % (Auto) 80.3 H Lymph % (Auto) 10.7 L [place] % (Auto) 7.6 Eos % (Auto) 1.0 L Baso % (Auto) 0.4 Neut # (Auto) 5300 Lymph # (Auto) 700 L [place] # (Auto) 500 Eos # (Auto) 100 Baso # (Auto) 0 PT 11.7 INR 1.0 APTT 30 Sodium 139 Potassium 4.2 Chloride 109 H Carbon Dioxide 22 BUN 24 H Creatinine 0.70 Estimated GFR > 60.0 BUN/Creatinine Ratio 34.3 H Glucose 120 H Calcium 8.7 Total Bilirubin 0.3 AST 23 ALT 27 Alkaline Phosphatase 53 Total Protein 6.5 Albumin 3.8 Globulin 2.7 Albumin/Globulin Ratio 1.4 Blood Type Antibody Screen 12/18/18 10:10 WBC RBC Hgb Hct MCV MCH MCHC RDW Plt Count Neut % (Auto) Lymph % (Auto) [place] % (Auto) Eos % (Auto) Baso % (Auto) Neut # (Auto) Lymph # (Auto) [place] # (Auto) Eos # (Auto) Baso # (Auto) PT INR APTT Sodium Potassium Chloride Carbon Dioxide BUN Creatinine Estimated GFR BUN/Creatinine Ratio Glucose Calcium Total Bilirubin AST ALT Alkaline Phosphatase Total Protein Albumin Globulin Albumin/Globulin Ratio Blood Type A Positive Antibody Screen Negative Assessment & Plan Assessment & Plan narrative: 83 yo man with [place] LGIB. Perhapse diverticular with LLQ tenderness. Hemodynamically stable. NGT lavage non diagnostic w/o bile or clot in stomach. Plan: Admit to Med, surgery will follow Serial Hct Q4hr Please type and screen 2 units Please provide 2 large bore PIVs NPO PEG prep x 4 L for colonoscopy later today (I ordered). Give via NGT placed in ED Will continue to follow with you.
--- NOTE | 2018-12-18 12:55 | P.CONS_ITS ---
History of Present Illness Date Patient Seen: 12/18/18 Time Patient Seen: 12:00 Chief complaint: RECTAL BLEEDING Reason for consult: rectal bleeding Narrative: 83M with hx of CAD s/p ID and PCI x5 2009 on BB presents with BRBPR. Hx of constipation for some time in this setting had recently stared MOM clean out with bowel out some 20hrs ago. At 3am today began to pass moderately large amount of blood mixed with stool. Approx 4 bm up until 8 am today. Some with janice ts. None dark colored. Mild associated LLQ discomfort but no pain. Denies presyncopy symptoms, clear thought. No SOB no light headedness. Initial HR 55 with BP 132/63 Pt had colonoscopy ~6yrs ago at OSH per pt report no abnormalities No fam hx of colon cancer or IBD On ASA 81, no anticoagulation INR 1, hct 39 with repeat pending [facility] Medical History Non-allergic rhinitis (Chronic) Balance problems (Chronic 02/08/16) Coronary artery disease involving [place] coronary artery of [place] heart without angina pectoris (Chronic 02/08/16) Essential hypertension (Chronic 02/08/16) History of malignant neoplasm of prostate (Chronic 04/08/15) Pure hypercholesterolemia (Chronic 02/08/16) Spinal stenosis of lumbar region (Chronic 02/08/16) Statin intolerance (Chronic 02/08/16) Gastroesophageal reflux disease (Chronic 06/13/16) Fatigue (Chronic 08/03/16) Dysphagia (Chronic 09/04/16) Vitamin D deficiency (Chronic 11/21/16) Left foot drop (Chronic 03/06/17) Peripheral polyneuropathy (Chronic 03/06/17) Coronary artery disease (Chronic 2008) GERD (gastroesophageal reflux disease) (Chronic Unknown) Hearing loss (Chronic 2014) Hypercholesterolemia (Chronic Unknown) Hypertension (Chronic Unknown) Lumbar disc disease (Chronic 2012) Spinal stenosis (Chronic Unknown) Chickenpox (Resolved) Hx of myocardial infarction (Resolved Unknown) Measles (Resolved) Polio (Resolved 1949) Prostate cancer (Resolved 2008) Headache (Inactive) Surgical History History of prostate surgery (Resolved 2009) Hx of heart surgery (Resolved 2008) Hx of hernia repair (Resolved Unknown) Status post laminectomy Family History Father No problems noted. Mother Cancer Grandfather No problems noted. Grandmother No problems noted. Grandfather No problems noted. Grandmother Cancer Social History marital status: Smoking Status: Former smoker second hand exposure: No alcohol intake: current substance use type: does not use Family History Father No problems noted. Mother Cancer Grandfather No problems noted. Grandmother No problems noted. Grandfather No problems noted. Grandmother Cancer Social History marital status: Smoking Status: Former smoker second hand exposure: No alcohol intake: current substance use type: does not use Meds Home Medications Medication Instructions Recorded Confirmed Type CoQ-10 400 mg PO QPM #0 11/21/16 12/18/18 History Mag Glycinate 400 mg PO DAILY #0 11/21/16 12/18/18 History ascorbic acid (vitamin C) 500 mg PO DAILY #0 11/21/16 12/18/18 History tamsulosin [Flomax] 0.8 mg PO QPM #0 11/21/16 12/18/18 History [VITAMIN K2] 100 mcg PO QPM #0 03/06/17 12/18/18 History alpha lipoic acid 600 mg capsule 600 mg PO DAILY 12/11/18 12/18/18 History aspirin 81 mg tablet,delayed 81 mg PO DAILY 12/11/18 12/18/18 History release atorvastatin 10 mg tablet 5 mg PO BEDTIME tab 12/11/18 12/18/18 History lisinopril 20 mg tablet 20 mg PO QPM 12/11/18 12/18/18 History nitroglycerin 0.4 mg sublingual 0.4 mg SL Q5-15M PRN 12/11/18 12/18/18 History tablet rosuvastatin 5 mg tablet 2.5 mg PO 3XW #0 tab 12/11/18 12/18/18 History solifenacin 10 mg tablet 10 mg PO DAILY 12/11/18 12/18/18 History Nerve Support Formula 1 dose PO DAILY 12/18/18 12/18/18 History Vitamin D3 1,500 units PO DAILY 12/18/18 12/18/18 History cyanocobalamin (vitamin B-12) 5,000 mcg SUBLINGUAL DAILY 12/18/18 12/18/18 History [Vitamin B-12] metoprolol succinate 25 mg PO DAILY 12/18/18 12/18/18 History Allergies Allergy/AdvReac Type Severity Reaction Status Date / Time No Known Drug Allergies Allergy Verified 12/18/18 09:24 Review of Systems Constitutional Constitutional: Denies fever(s) Eyes Eyes: Denies bulging eyes ENT Ears, Nose, Mouth, and Throat: No lip swelling Cardiovascular Cardiovascular: Denies generalize swelling Respiratory Respiratory: Denies stridor Gastrointestinal Gastrointestinal: Denies coffee ground emesis Musculoskeletal Musculoskeletal: Denies loss of height Integumentary/Breasts Skin/Breast: Denies wounds Neurologic Neurologic: Denies abnormal speech and Denies confusion Psychiatric Psychiatric: Denies confusion Endocrine Endocrine: Denies deepening of the voice Hematologic/Lymphatic Hematologic/Lymphatic: Denies lymphadenopathy Allergic/Immunologic Allergic/Immunologic: Denies lip swelling Exam Vital Signs (past 8 hours): - 12/18/18 09:24 12/18/18 10:30 12/18/18 11:00 Temperature 97.7 F Pulse Rate 78 65 55 L Respiratory Rate 20 20 13 Blood Pressure 117/59 L Blood Pressure [Right Arm] 121/51 L 132/63 Pulse Oximetry 96 97 94 12/18/18 12:05 Temperature Pulse Rate 67 Respiratory Rate 21 Blood Pressure Blood Pressure [Right Arm] 126/57 L Pulse Oximetry 96 Oxygen Delivery Method Room Air Const General: cooperative and No healthy appearing Orientation: alert [facility] Head: normal to inspection Nose: nares normal Mouth: oral mucosae normal and lip normal Eyes Eyelids: eyelids normal Conjunctivae: conjunctivae normal Sclera: sclerae normal Neck Neck: supple and other (No thyromegally) Chest Chest: other (LCTAB , regular respiratory effort) Cardio Rhythm: regular rhythm Heart Sounds: S1 normal, S2 normal, no gallops, no murmurs and no rubs GI Other: Abdomen rotund without surgical scars, dull to percussion, non tender to percussion, BS pressent. No HSM. Tender to palpation midly in LLQ. Rectal exam: small LL hemorrhoids grade I, with anaoscope slightly dark blood stained fluid from distal rectum. No active bleeding for anal canal or proximal rectum. No bleeding hemorrhoids. Skin General: no rashes or lesions noted Neuro General: alert and awake Psych Appearance: grossly normal Affect: normal affect Objective Labs Result Diagrams: 12/18/18 12:50 12/18/18 10:10 Labs: Laboratory Results - last 24 hr 12/18/18 12/18/18 12/18/18 10:10 10:10 10:10 WBC 6.6 RBC 4.12 L Hgb 13.4 L Hct 39.7 L MCV 96.3 MCH 32.4 MCHC 33.7 RDW 13.4 Plt Count 135 L Neut % (Auto) 80.3 H Lymph % (Auto) 10.7 L [place] % (Auto) 7.6 Eos % (Auto) 1.0 L Baso % (Auto) 0.4 Neut # (Auto) 5300 Lymph # (Auto) 700 L [place] # (Auto) 500 Eos # (Auto) 100 Baso # (Auto) 0 PT 11.7 INR 1.0 APTT 30 Sodium 139 Potassium 4.2 Chloride 109 H Carbon Dioxide 22 BUN 24 H Creatinine 0.70 Estimated GFR > 60.0 BUN/Creatinine Ratio 34.3 H Glucose 120 H Calcium 8.7 Total Bilirubin 0.3 AST 23 ALT 27 Alkaline Phosphatase 53 Total Protein 6.5 Albumin 3.8 Globulin 2.7 Albumin/Globulin Ratio 1.4 Blood Type Antibody Screen 12/18/18 10:10 WBC RBC Hgb Hct MCV MCH MCHC RDW Plt Count Neut % (Auto) Lymph % (Auto) [place] % (Auto) Eos % (Auto) Baso % (Auto) Neut # (Auto) Lymph # (Auto) [place] # (Auto) Eos # (Auto) Baso # (Auto) PT INR APTT Sodium Potassium Chloride Carbon Dioxide BUN Creatinine Estimated GFR BUN/Creatinine Ratio Glucose Calcium Total Bilirubin AST ALT Alkaline Phosphatase Total Protein Albumin Globulin Albumin/Globulin Ratio Blood Type A Positive Antibody Screen Negative Assessment & Plan Assessment & Plan narrative: 83 yo man with Likley LGIB. Perhapse diverticular with LLQ tenderness. Hemodynamically stable. NGT lavage non diagnostic w/o bile or clot in stomach. Plan: Admit to Med, surgery will follow Serial Hct Q4hr Please type and screen 2 units Please provide 2 large bore PIVs NPO PEG prep x 4 L for colonoscopy later today (I ordered). Give via NGT placed in ED Will continue to follow with you.
[2018-12-18 12:59] LABS: Hematocrit 40.8 % (41-53)
--- NOTE | 2018-12-18 13:21 | PC.NURSE ---
Dr. Jc used a anal spectrum on pt, bright red liquid came out. pt tolerated well. the dr also placed an NG tube. he lavaged the pt stomach with 60ml syringe x3, no blood noted. tube is taped to the nose and pinned to pt's gown. is in clarifying the procedures that will be done. is ordering an xray for placement verification.
--- NOTE | 2018-12-18 13:25 | DI.RAD.S_ITS ---
PROCEDURE: XR CHEST 1V INDICATIONS: NG tube TECHNIQUE: One view of the chest was acquired. COMPARISON: [facility], , XR CHEST 1V, 04/14/2018, 12:10. FINDINGS: Surgical changes and devices: NG tube is in place which projects across the GE junction with tip in the proximal stomach. Lungs and pleura: Lungs are clear. No pleural effusions or pneumothorax. Mediastinum: Mediastinal contours appear normal. Heart size is normal. Bones and chest wall: No suspicious bony lesions. Overlying soft tissues appear unremarkable. IMPRESSION: NG tube projects across the GE junction. Dictated by: Joanne Craig MD, PhD on 12/18/2018 at 14:01 Approved by: Joanne Craig MD, PhD on 12/18/2018 at 14:01
[2018-12-18] MEDS: PEG3350/SOD SULF,BICARB,CL/KCL 4,000 ML SOLUTION 4000 ML PO (14:54)
--- NOTE | 2018-12-18 15:04 | PC.NURSE ---
Patient received from ER to room 228. Oriented to room and call light. Call light placed within reach. NG tube in place, placement confirmed via cxr and ascultation. Kangaroo pump is unable to pump golytely fluid at rate ordered into NGT. Patient wonders why he can't just drink it and get rid of the tube. Dr. Woods called to clarify, he states start by giving the golytely at 200ml every 15 minutes. Golytely started as directed. Bed alarm activated for safety. Patient instructed to call for assistance.
--- NOTE | 2018-12-18 16:26 | PM.HP.1 ---
History of Present Illness Date Patient Seen: 12/18/18 Chief complaint: RECTAL BLEEDING Narrative: The patient is an 83-year-old male with a history of myocardial infarction 10 years ago, history of prostate cancer who was in his usual state of health until about a week ago. Patient was constipated and saw his PCP who started him on milk of magnesia. He initially had some activity. Then on Sunday 2 days prior to admission the patient had significant diarrhea. Today on the day of admission he developed lower abdominal crampy pain and bloody diarrhea. He presented to the hospital for evaluation. He was not found to be anemic but found to be markedly guaiac positive. He denies a prior history of rectal bleeding although he reports a 10 years ago an episode that turned out to be ?nothing. He has had no hematemesis. He has had no prior history of ulcer. He has had no abdominal surgeries. The patient had an NG tube placed for a colon prep and is having significant mucoid production but otherwise he has had no fever chills shortness of breath chest pain cough weight loss weight gain. He has chronic neuropathy. Patient was seen in the emergency room by General surgery. They are prepping his colon with plans for colonoscopy this evening. Patient History Medical History Non-allergic rhinitis (Chronic) Balance problems (Chronic 02/08/16) Coronary artery disease involving [place] coronary artery of [place] heart without angina pectoris (Chronic 02/08/16) Essential hypertension (Chronic 02/08/16) History of malignant neoplasm of prostate (Chronic 04/08/15) Pure hypercholesterolemia (Chronic 02/08/16) Spinal stenosis of lumbar region (Chronic 02/08/16) Statin intolerance (Chronic 02/08/16) Gastroesophageal reflux disease (Chronic 06/13/16) Fatigue (Chronic 08/03/16) Dysphagia (Chronic 09/04/16) Vitamin D deficiency (Chronic 11/21/16) Left foot drop (Chronic 03/06/17) Peripheral polyneuropathy (Chronic 03/06/17) Coronary artery disease (Chronic 2008) GERD (gastroesophageal reflux disease) (Chronic Unknown) Hearing loss (Chronic 2014) Hypercholesterolemia (Chronic Unknown) Hypertension (Chronic Unknown) Lumbar disc disease (Chronic 2012) Spinal stenosis (Chronic Unknown) Chickenpox (Resolved) Hx of myocardial infarction (Resolved Unknown) Measles (Resolved) Polio (Resolved 1949) Prostate cancer (Resolved 2008) Headache (Inactive) Surgical History History of prostate surgery (Resolved 2009) Hx of heart surgery (Resolved 2008) Hx of hernia repair (Resolved Unknown) Status post laminectomy Family History Father No problems noted. Mother Cancer Grandfather No problems noted. Grandmother No problems noted. Grandfather No problems noted. Grandmother Cancer Social History marital status: household members: none Smoking Status: Former smoker second hand exposure: No alcohol intake: current substance use type: does not use Family & Social History Family History Father No problems noted. Mother Cancer Grandfather No problems noted. Grandmother No problems noted. Grandfather No problems noted. Grandmother Cancer Social History: household members none Prior Living Arrangements House Safety & Behavioral: Feels Safe in Current Yes Environment Been Physically Hurt or No Threatened By a Person Suicidal Ideation Description None Suicide Plan Description No Plan Tobacco & Substance use: Smoking Status Former smoker alcohol intake current alcohol intake frequency a few times a week Substance Use Type does not use Meds Home Medications Medication Instructions Recorded Confirmed Type CoQ-10 400 mg PO QPM #0 11/21/16 12/18/18 History Mag Glycinate 400 mg PO DAILY #0 11/21/16 12/18/18 History ascorbic acid (vitamin C) 500 mg PO DAILY #0 11/21/16 12/18/18 History tamsulosin [Flomax] 0.8 mg PO QPM #0 11/21/16 12/18/18 History [VITAMIN K2] 100 mcg PO QPM #0 03/06/17 12/18/18 History alpha lipoic acid 600 mg capsule 600 mg PO DAILY 12/11/18 12/18/18 History aspirin 81 mg tablet,delayed 81 mg PO DAILY 12/11/18 12/18/18 History release atorvastatin 10 mg tablet 5 mg PO BEDTIME tab 12/11/18 12/18/18 History lisinopril 20 mg tablet 20 mg PO QPM 12/11/18 12/18/18 History nitroglycerin 0.4 mg sublingual 0.4 mg SL Q5-15M PRN 12/11/18 12/18/18 History tablet rosuvastatin 5 mg tablet 2.5 mg PO 3XW #0 tab 12/11/18 12/18/18 History solifenacin 10 mg tablet 10 mg PO DAILY 12/11/18 12/18/18 History Nerve Support Formula 1 dose PO DAILY 12/18/18 12/18/18 History Vitamin D3 1,500 units PO DAILY 12/18/18 12/18/18 History cyanocobalamin (vitamin B-12) 5,000 mcg SUBLINGUAL DAILY 12/18/18 12/18/18 History [Vitamin B-12] metoprolol succinate 25 mg PO DAILY 12/18/18 12/18/18 History Allergies Allergy/AdvReac Type Severity Reaction Status Date / Time No Known Drug Allergies Allergy Verified 12/18/18 09:24 Review of Systems Review of Systems All systems reviewed & are unremarkable except as noted in HPI and below Exam Vital Signs (past 8 hours): - 12/18/18 09:24 12/18/18 10:30 12/18/18 11:00 Temperature 97.7 F Pulse Rate 78 65 55 L Respiratory Rate 20 20 13 Blood Pressure 117/59 L Blood Pressure [Right Arm] 121/51 L 132/63 Pulse Oximetry 96 97 94 12/18/18 12:05 12/18/18 12:20 12/18/18 12:50 Temperature Pulse Rate 67 66 65 Respiratory Rate 21 16 19 Blood Pressure Blood Pressure [Right Arm] 126/57 L 126/57 L 136/52 L Pulse Oximetry 96 96 12/18/18 13:32 12/18/18 14:22 12/18/18 15:41 Temperature 97.5 F L 97.2 F L Pulse Rate 64 67 66 Respiratory Rate 18 18 18 Blood Pressure 140/78 167/77 H Blood Pressure [Right Arm] 140/60 Pulse Oximetry 97 99 99 Oxygen Delivery Method Room Air Narrative Exam Narrative: Elderly ill-appearing male in bed HEENT: Normocephalic atraumatic, extraocular muscles are intact, oropharynx is clear, there is significant sputum production, neck is supple Lungs: Decreased but clear to auscultation Cardiac exam: Regular rate and rhythm normal S1-S2 Abdomen: Distended, soft, nontender, no board-like rigidity, no palpable masses. no appreciable hepatosplenomegaly. Extremities: No edema Skin: No lesion Objective Labs Result Diagrams: 12/18/18 12:50 12/18/18 10:10 Labs: Laboratory Results - last 24 hr 12/18/18 12/18/18 12/18/18 10:10 10:10 10:10 WBC 6.6 RBC 4.12 L Hgb 13.4 L Hct 39.7 L MCV 96.3 MCH 32.4 MCHC 33.7 RDW 13.4 Plt Count 135 L Neut % (Auto) 80.3 H Lymph % (Auto) 10.7 L [place] % (Auto) 7.6 Eos % (Auto) 1.0 L Baso % (Auto) 0.4 Neut # (Auto) 5300 Lymph # (Auto) 700 L [place] # (Auto) 500 Eos # (Auto) 100 Baso # (Auto) 0 PT 11.7 INR 1.0 APTT 30 Sodium 139 Potassium 4.2 Chloride 109 H Carbon Dioxide 22 BUN 24 H Creatinine 0.70 Estimated GFR > 60.0 BUN/Creatinine Ratio 34.3 H Glucose 120 H Calcium 8.7 Total Bilirubin 0.3 AST 23 ALT 27 Alkaline Phosphatase 53 Total Protein 6.5 Albumin 3.8 Globulin 2.7 Albumin/Globulin Ratio 1.4 Blood Type Antibody Screen 12/18/18 12/18/18 10:10 12:50 WBC RBC Hgb Hct 40.8 L MCV MCH MCHC RDW Plt Count Neut % (Auto) Lymph % (Auto) [place] % (Auto) Eos % (Auto) Baso % (Auto) Neut # (Auto) Lymph # (Auto) [place] # (Auto) Eos # (Auto) Baso # (Auto) PT INR APTT Sodium Potassium Chloride Carbon Dioxide BUN Creatinine Estimated GFR BUN/Creatinine Ratio Glucose Calcium Total Bilirubin AST ALT Alkaline Phosphatase Total Protein Albumin Globulin Albumin/Globulin Ratio Blood Type A Positive Antibody Screen Negative Assessment & Plan (1) Acute GI bleeding: Problem details: 83-year-old male who presents with acute lower GI bleeding. Differential diagnosis include acute diverticular bleeding, hemorrhoidal bleeding, ischemic colitis, or rectal ulcers he is currently undergoing prep for colonoscopy this evening. Will continue to monitor his hematocrit. Will start IV hydration. Current visit: Yes Status: Acute (2) Coronary artery disease involving [place] coronary artery of [place] heart without angina pectoris: Problem details: Patient with a history of coronary artery disease, status post myocardial infarction 10 years ago. Will continue his usual antianginal regimen. Current visit: No Status: Chronic (3) Essential hypertension: Problem details: Hypertension, present on admission, continue usual home medication Current visit: No Status: Chronic (4) History of malignant neoplasm of prostate: Problem details: History of prostate cancer, remote no intervention needed Current visit: No Status: Chronic (5) Peripheral polyneuropathy: Problem details: Peripheral neuropathy, chronic, present on admission, will continue Neurontin Current visit: No Status: Chronic
[2018-12-18] MEDS: DEXTROSE 5%-0.45NS W/KCL 20MEQ 1,000 ML 84 MEQ IV (17:29)
--- NOTE | 2018-12-18 17:48 | PM.PN.1 ---
Subjective Date Patient Seen: 12/18/18 Time Patient Seen: 17:49 Interval history: Pt seen this evening. Continues to feel well. no light headedness Has had multiple BMs since preps with PEG - most recent non bloodly Exam Vital Signs (past 8 hours): - 12/18/18 10:30 12/18/18 11:00 12/18/18 12:05 Temperature Pulse Rate 65 55 L 67 Respiratory Rate 20 13 21 Blood Pressure Blood Pressure [Right Arm] 121/51 L 132/63 126/57 L Pulse Oximetry 97 94 96 12/18/18 12:20 12/18/18 12:50 12/18/18 13:32 Temperature Pulse Rate 66 65 64 Respiratory Rate 16 19 18 Blood Pressure Blood Pressure [Right Arm] 126/57 L 136/52 L 140/60 Pulse Oximetry 96 97 12/18/18 14:22 12/18/18 15:41 Temperature 97.5 F L 97.2 F L Pulse Rate 67 66 Respiratory Rate 18 18 Blood Pressure 140/78 167/77 H Blood Pressure [Right Arm] Pulse Oximetry 99 99 Oxygen Delivery Method Room Air Narrative Exam Narrative: Soft nonacute abdomen Objective Labs Result Diagrams: 12/18/18 12:50 12/18/18 10:10 Labs: Laboratory Results - last 24 hr 12/18/18 12/18/18 12/18/18 10:10 10:10 10:10 WBC 6.6 RBC 4.12 L Hgb 13.4 L Hct 39.7 L MCV 96.3 MCH 32.4 MCHC 33.7 RDW 13.4 Plt Count 135 L Neut % (Auto) 80.3 H Lymph % (Auto) 10.7 L [place] % (Auto) 7.6 Eos % (Auto) 1.0 L Baso % (Auto) 0.4 Neut # (Auto) 5300 Lymph # (Auto) 700 L [place] # (Auto) 500 Eos # (Auto) 100 Baso # (Auto) 0 PT 11.7 INR 1.0 APTT 30 Sodium 139 Potassium 4.2 Chloride 109 H Carbon Dioxide 22 BUN 24 H Creatinine 0.70 Estimated GFR > 60.0 BUN/Creatinine Ratio 34.3 H Glucose 120 H Calcium 8.7 Total Bilirubin 0.3 AST 23 ALT 27 Alkaline Phosphatase 53 Total Protein 6.5 Albumin 3.8 Globulin 2.7 Albumin/Globulin Ratio 1.4 Blood Type Antibody Screen 12/18/18 12/18/18 10:10 12:50 WBC RBC Hgb Hct 40.8 L MCV MCH MCHC RDW Plt Count Neut % (Auto) Lymph % (Auto) [place] % (Auto) Eos % (Auto) Baso % (Auto) Neut # (Auto) Lymph # (Auto) [place] # (Auto) Eos # (Auto) Baso # (Auto) PT INR APTT Sodium Potassium Chloride Carbon Dioxide BUN Creatinine Estimated GFR BUN/Creatinine Ratio Glucose Calcium Total Bilirubin AST ALT Alkaline Phosphatase Total Protein Albumin Globulin Albumin/Globulin Ratio Blood Type A Positive Antibody Screen Negative Assessment & Plan Assessment & Plan narrative: 83 yo man HD1 admitted with LGIB. Had been HD stable all day without hypotention or tackycardia on BB. His repeat hct was 40.8. BMs no longer bloody. Plan to continue prep overnight OK to remove NGT - pt willing to drink PEG Plan for colonoscopy in AM Reyes Woods MD
[2018-12-19] VITALS (19 sets, daily range): BP systolic 125–170; BP diastolic 55–117; PULSE 56–72; RESP 14–19; TEMP 36–37.1; O2SAT 96–99; BMI 30.2
--- NOTE | 2018-12-19 | PATH_ITS ---
[facility] Accession Number: [id number] . 01 Material submitted: . PART A: colon - ASCENDING COLON PART B: rectosigmoid junction - RECTO SIGMOID JUNCTION . 02 Diagnosis: A. Ascending Colon, Biopsy: Minimal active colitis. See comment. Negative for granulomata, dysplasia or malignancy. . B. Rectosigmoid Junction, Biopsy: Minimal active colitis. See comment. Negative for granulomata, dysplasia or malignancy. MRV/12/20/2018 . 02 Comment: The histologic findings are mild and raise a differential diagnosis including bowel prep effect, infection or drug/toxin-induced injury. . 02 Electronically signed: . Fletcher Ny MD, PhD, Pathologist NPI- [id number] . 01 Gross description: . Part A: ASCENDING COLON: Received in formalin are 3 fragment(s) of hubbard, soft tissue measuring 0.1 x 0.1 x 0.1 cm to 0.2 x 0.1 x 0.1 cm which is entirely submitted and submitted entirely in 1 cassette(s) Part B: RECTO SIGMOID JUNCTION: Received in formalin are 2 fragment(s) of hubbard, soft tissue measuring 0.1 x 0.1 x 0.1 cm to 0.2 x 0.1 x 0.1 cm which is entirely submitted and submitted entirely in 1 cassette(s) /DMC /DMC . 02 Pathologist provided ICD-10: K52.9 . 02 CPT . 550770, [id number] Performed at: 01 [facility] [address], [place], [place] [id number] MD Eddie Rouse MD Phone: [phone] Performed at: 02 [facility] [address] [place] [id number] MD Dorcas Pepe MD Phone: [phone]
[2018-12-19] MEDS: DEXTROSE 5%-0.45NS W/KCL 20MEQ 1,000 ML 84 MEQ IV (05:07)
[2018-12-19 05:30] LABS: Add Manual Diff / Slide Review NO; Basophils Absolute Auto 0 /uL (0-100); Basophils Percent Auto 0.4 % (0-2); Eosinophils Absolute Auto 100 /uL (0-450); Eosinophils Percent Auto 1.7 % (2-4); Hematocrit 40.4 % (41-53); Hemoglobin 13.6 g/dL (13.5-17.5); Lymphocytes Absolute Auto 900 /uL (1100-4500); Lymphocytes Percent Auto 15.5 % (25-40); Mean Corpuscular HGB Conc 33.8 % (30-36); Mean Corpuscular Hemoglobin 32.5 PG (26-34); Mean Corpuscular Volume 96.2 fL (80-100); Monocytes Absolute Auto 600 /uL (0-900); Monocytes Percent Auto 10.7 % (3-14); Neutrophils Absolute Auto 4300 /uL (1500-7000); Neutrophils Percent Auto 71.7 % (50-75); Platelet Count 133 X10^3/uL (150-400); Red Cell Distribution Width 13.6 % (11.6-14.8); White Blood Cell Count 5.9 X10^3/uL (4.5-11.0)
[2018-12-19 05:38] LABS: Blood Urea Nitrogen 14 mg/dL (9-20); Calcium 8.6 mg/dL (8.4-10.2); Carbon Dioxide 25 mmol/L (22-32); Chloride 107 mmol/L (98-107); Estimated Glomerular Filt Rate > 60.0 mL/min (>60); Glucose 124 mg/dL (80-110); HEMOLYSIS < 15 (0-50); Potassium 4.1 mmol/L (3.4-5.1); Sodium 137 mmol/L (137-145)
--- NOTE | 2018-12-19 07:09 | P.PN_ITS ---
Subjective Date Patient Seen: 12/19/18 Time Patient Seen: 07:00 Interval history: Well overnight, no further BMs with blood. Just this Am finished colon prep. Abdominal pain in LLQ now resolved. Exam Vital Signs (past 8 hours): - 12/18/18 23:35 12/19/18 00:34 12/19/18 04:00 Temperature 97.9 F 98.2 F Pulse Rate 64 63 Respiratory Rate 15 16 Blood Pressure 132/77 137/72 Pulse Oximetry 97 97 97 Oxygen Delivery Method Room Air Narrative Exam Narrative: Looks well, reading book, asking questions breathing comfortably on RA RRR Abd soft, LLQ tenderness resolved periphery warm Objective Labs Result Diagrams: 12/19/18 05:16 12/19/18 05:16 Labs: Laboratory Results - last 24 hr 12/18/18 12/18/18 12/18/18 10:10 10:10 10:10 WBC 6.6 RBC 4.12 L Hgb 13.4 L Hct 39.7 L MCV 96.3 MCH 32.4 MCHC 33.7 RDW 13.4 Plt Count 135 L Neut % (Auto) 80.3 H Lymph % (Auto) 10.7 L [place] % (Auto) 7.6 Eos % (Auto) 1.0 L Baso % (Auto) 0.4 Neut # (Auto) 5300 Lymph # (Auto) 700 L [place] # (Auto) 500 Eos # (Auto) 100 Baso # (Auto) 0 PT 11.7 INR 1.0 APTT 30 Sodium 139 Potassium 4.2 Chloride 109 H Carbon Dioxide 22 BUN 24 H Creatinine 0.70 Estimated GFR > 60.0 BUN/Creatinine Ratio 34.3 H Glucose 120 H Calcium 8.7 Total Bilirubin 0.3 AST 23 ALT 27 Alkaline Phosphatase 53 Total Protein 6.5 Albumin 3.8 Globulin 2.7 Albumin/Globulin Ratio 1.4 Blood Type Antibody Screen 12/18/18 12/18/18 12/19/18 10:10 12:50 05:16 WBC 5.9 RBC 4.20 L Hgb 13.6 Hct 40.8 L 40.4 L MCV 96.2 MCH 32.5 MCHC 33.8 RDW 13.6 Plt Count 133 L Neut % (Auto) 71.7 Lymph % (Auto) 15.5 L [place] % (Auto) 10.7 Eos % (Auto) 1.7 L Baso % (Auto) 0.4 Neut # (Auto) 4300 Lymph # (Auto) 900 L [place] # (Auto) 600 Eos # (Auto) 100 Baso # (Auto) 0 PT INR APTT Sodium Potassium Chloride Carbon Dioxide BUN Creatinine Estimated GFR BUN/Creatinine Ratio Glucose Calcium Total Bilirubin AST ALT Alkaline Phosphatase Total Protein Albumin Globulin Albumin/Globulin Ratio Blood Type A Positive Antibody Screen Negative 12/19/18 05:16 WBC RBC Hgb Hct MCV MCH MCHC RDW Plt Count Neut % (Auto) Lymph % (Auto) [place] % (Auto) Eos % (Auto) Baso % (Auto) Neut # (Auto) Lymph # (Auto) [place] # (Auto) Eos # (Auto) Baso # (Auto) PT INR APTT Sodium 137 Potassium 4.1 Chloride 107 Carbon Dioxide 25 BUN 14 Creatinine 0.70 Estimated GFR > 60.0 BUN/Creatinine Ratio 20.0 Glucose 124 H Calcium 8.6 Total Bilirubin AST ALT Alkaline Phosphatase Total Protein Albumin Globulin Albumin/Globulin Ratio Blood Type Antibody Screen Assessment & Plan Assessment & Plan narrative: 83 yo man HD2 admitted with LGIB that has s pontaneously resolved. Hemodynamics good. Hct stable x 3 values ~40. Plan for colonoscopy late this am NPO now
--- NOTE | 2018-12-19 09:49 | PC.NURSE ---
student assistant note Patient left for colonoscopy at 0940 in wheelchair.
[2018-12-19] MEDS: fentaNYL 250 MCG/5 ML INJ IV (12:14)
[2018-12-19] MEDS: MIDAZOLAM 5 MG/5 ML VIAL IV (12:26)
--- NOTE | 2018-12-19 12:55 | PM.OP.ENDO ---
Operative Date/Time/Diagnoses Date of procedure: 12/19/18 Time of procedure: 12:00 Procedure & Clinicians Study performed: Diagnostic colonoscopy Same procedure as scheduled: Yes Surgeon: Reyes Woods Procedure Notes SCOAP/Timeout: Performed Procedure in detail: Patient was taken to the endoscopy suite. A time-out was completed. patient was sedated with midazolam and fentanyl. Inspection of his anoderm revealed a small perhaps grade 1 external hemorrhoid on the right posterior column. There were no other abnormalities of the anal derm or anal canal. 160 cm colonoscope was introduced into the rectum and the rectum insufflated. Immediately a significant rectal colitis was identified this was present within the rectum but was most pronounced upon negotiating the rectosigmoid junction within the sigmoid colon itself. There were long streak lesions with erythematous hyperplastic changes of the colonic mucosa and vascular underlying changes as well. The mucosa itself was friable and there was some contact bleeding. I did not identify clear pseudomembranes. This continued up until approximately the midportion of the left colon. Proximal to the left colon of the mucosa appeared normal. was able to advance the scope to the cecum identifying the ileocecal valve and the [place]'s foot. The ileocecal valve itself was not hyperemic and did not have any lesions. an attempt to intubate the terminal ileum was not successful. The scope was withdrawn for total withdrawal time of 11 minutes. No polyps were identified. in home sales representative samples using cold biopsy forceps were taken of the left colon as well as at the rectosigmoid junction. upon withdrawal of the colon was retroflexed there were no distal rectal lesions identified. Prep was adequate Total withdrawal time 11 minutes Postop diagnosis distal colitis involving primarily the sigmoid colon Specimens 1. Left colon 2. Rectosigmoid junction Scope withdrawal time: 11 minutes Sedation minutes: 41 Findings: colitis Specimen(s): other Complications: none Impression: Colitis involving the distal left colon, entire sigmoid colon and rectum. Plan for aftercare: Return to floor await biopsy results. OK for liquid diet Follow up: weeks (2) Disposition: PACU
--- NOTE | 2018-12-19 13:03 | P.OP.ENDO_ITS ---
Operative Date/Time/Diagnoses Date of procedure: 12/19/18 Time of procedure: 12:00 Procedure & Clinicians Study performed: Diagnostic colonoscopy Same procedure as scheduled: Yes Surgeon: Reyes Woods Procedure Notes SCOAP/Timeout: Performed Procedure in detail: Patient was taken to the endoscopy suite. A time-out was completed. patient was sedated with midazolam and fentanyl. Inspection of his anoderm revealed a small perhaps grade 1 external hemorrhoid on the right posterior column. There were no other abnormalities of the anal derm or anal canal. 160 cm colonoscope was introduced into the rectum and the rectum insufflated. Immediately a significant rectal colitis was identified this was present within the rectum but was most pronounced upon negotiating the rectosigmoid junction within the sigmoid colon itself. There were long streak lesions with erythematous hyperplastic changes of the colonic mucosa and vascular underlying changes as well. The mucosa itself was friable and there was some contact bleeding. I did not identify clear pseudomembranes. This continued up until approximately the midportion of the left colon. Proximal to the left colon of the mucosa appeared normal. was able to advance the scope to the cecum identifying the ileocecal valve and the [place]'s foot. The ileocecal valve itself was not hyperemic and did not have any lesions. an attempt to intubate the terminal ileum was not successful. The scope was withdrawn for total withdrawal time of 11 minutes. No polyps were identified. veterans employment representative samples using cold biopsy forceps were taken of the left colon as well as at the rectosigmoid junction. upon withdrawal of the colon was retroflexed there were no distal rectal lesions identified. Prep was adequate Total withdrawal time 11 minutes Postop diagnosis distal colitis involving primarily the sigmoid colon Specimens 1. Left colon 2. Rectosigmoid junction Scope withdrawal time: 11 minutes Sedation minutes: 41 Findings: colitis Specimen(s): other Complications: none Impression: Colitis involving the distal left colon, entire sigmoid colon and rectum. Plan for aftercare: Return to floor await biopsy results. OK for liquid diet Follow up: weeks (2) Disposition: PACU
--- NOTE | 2018-12-19 13:06 | SUR.PHASEI ---
Dr. Woods shown tele strip with 1st degree avb. No new orders.
--- NOTE | 2018-12-19 13:14 | SUR.PHASEI ---
Report called to Komal
--- NOTE | 2018-12-19 13:36 | SUR.PHASEI ---
Pt transferred to the floor. VS Stable. IV saline locked x2. Rings x2, and glasses with patient. Pt able to transfer self to the bed from stretcher with sba. Report to Komal
--- NOTE | 2018-12-19 13:38 | PC.NURSE ---
Addendum entered by Senia Kate 12/19/18 13:50: Patient returned from colonoscopy at 1315. Original Note: Twill Cutter Note Patient returned from colonoscopy on stretcher. Alert and oriented x4. Independent transfer back to bed. Belongings present. Vitals stable. Full liquid diet ordered. Patient has pleasant affect. Vital signs continuing to be monitored. [id number] at bedside.
[2018-12-19] MEDS: LISINOPRIL 20 MG TABLET PO (14:05)
--- NOTE | 2018-12-19 14:05 | P.PN_ITS ---
Subjective Date Patient Seen: 12/19/18 Interval history: 83-year-old male admitted to the hospital yesterday for abrupt onset rectal bleeding and diarrhea. Patient underwent colonoscopy today which was significant for acute colitis. C diff cultures by PCR are still pending. He has had no further diarrhea. And no further bleeding. His hematocrit has been stable. Patient is hungry otherwise has no acute distress. Exam Vital Signs (past 8 hours): - 12/19/18 08:00 12/19/18 08:20 12/19/18 09:48 Temperature 97.3 F L 96.8 F L Pulse Rate 56 L 62 Respiratory Rate 16 16 Blood Pressure 150/68 H 170/73 H Pulse Oximetry 97 99 99 12/19/18 12:48 12/19/18 12:50 12/19/18 12:54 Temperature 97.8 F Pulse Rate 67 72 70 Respiratory Rate 16 16 16 Blood Pressure 151/117 H 161/69 H 133/68 Pulse Oximetry 98 99 99 12/19/18 12:58 12/19/18 13:03 12/19/18 13:29 Temperature 97.5 F L 98.0 F Pulse Rate 71 67 65 Respiratory Rate 15 17 18 Blood Pressure 163/70 H 149/56 H 148/82 H Pulse Oximetry 99 99 98 Oxygen Delivery Method Room Air Oxygen Flow Rate 0 Narrative Exam Narrative: Pleasant male resting comfortably Lungs: Clear to auscultation Cardiac exam: Regular rate and rhythm normal S1-S2 with a 2/6 systolic ejection murmur Abdomen: Soft mildly distended none no past splenomegaly Extremities: No edema Objective Labs Result Diagrams: 12/19/18 05:16 12/19/18 05:16 Labs: Laboratory Results - last 24 hr 12/19/18 12/19/18 05:16 05:16 WBC 5.9 RBC 4.20 L Hgb 13.6 Hct 40.4 L MCV 96.2 MCH 32.5 MCHC 33.8 RDW 13.6 Plt Count 133 L Neut % (Auto) 71.7 Lymph % (Auto) 15.5 L [place] % (Auto) 10.7 Eos % (Auto) 1.7 L Baso % (Auto) 0.4 Neut # (Auto) 4300 Lymph # (Auto) 900 L Johnson # (Auto) 600 Eos # (Auto) 100 Baso # (Auto) 0 Sodium 137 Potassium 4.1 Chloride 107 Carbon Dioxide 25 BUN 14 Creatinine 0.70 Estimated GFR > 60.0 BUN/Creatinine Ratio 20.0 Glucose 124 H Calcium 8.6 Assessment & Plan (1) Acute colitis: Problem details: Colonoscopy demonstrated acute colitis. C diff PCR pending. Stool culture added. Patient has been advanced to a full liquid diet. If C diff positive with start him on oral vancomycin. Current visit: Yes Status: Acute (2) Acute GI bleeding: Problem details: 83-year-old male who presents with acute lower GI bleeding. Differential diagnosis include acute diverticular bleeding, hemorrhoidal bleeding, ischemic colitis, or rectal ulcers he is currently undergoing prep for colonoscopy this evening. Will continue to monitor his hematocrit. Will start IV hydration. Will discontinue IV fluids. Will advance diet accordingly Current visit: Yes Status: Acute (3) Peripheral polyneuropathy: Problem details: Peripheral neuropathy, chronic, present on admission, will continue Neurontin Current visit: No Status: Chronic (4) Essential hypertension: Problem details: Hypertension, present on admission, continue usual home medication Current visit: No Status: Chronic Assessment & Plan narrative: Anticipate discharge home tomorrow following the results of stool studies.
[2018-12-19] MEDS: METOPROLOL ER 25 MG TABLET PO (14:06)
[2018-12-19] MEDS: SOLIFENACIN 5 MG TABLET 10 MG PO (14:07)
[2018-12-19] MEDS: TAMSULOSIN 0.4 MG CAPSULE 0.8 MG PO (14:08)
--- NOTE | 2018-12-19 16:14 | CM.DANOTE ---
Addendum entered by Tiesha Rico LPN 12/20/18 16:18: DCP: continued: case again discussed in Team Rounds. Dr. Villalobos said pt would likely d/c today but she had not yet seen him. Went to room to see pt this afternoon, earliest that triage of caseload discharges allowed, and found that pt had been discharged to home in company of his daughter in law just after 1300. He was to follow up with his PCP and his surgeon in clinic. Original Note: Discharge Planning/Care Management DCP: case received, EMR reviewed. Discussed case in Team Rounds this morning. Pt is an 83 year odl male who admitted yesterday afternoon to care of the hospitalist team. Payer: Medicare and [employer] PCP: Vikash Gomez Consulting: surgeon: Luis Enrique Woodard: pt was taken to surgery today for a diagnostic colonoscopy: results: Acute colitis. Pt has been off floor for much of day. P: see pt tomorrow to continue the assessment process. c-diff is pending. CM Discharge Assessment Start: 12/19/18 16:13 Freq: Status: Active Protocol: Document 12/19/18 16:13 ITV (Rec: 12/19/18 16:14 ITV [id number]) Discharge Planning Assessment Advance Directives? No History Provided By Medical Record Prior Living Arrangements House Household Members none Review Status In Process Next Review Type Continued Stay Review
--- NOTE | 2018-12-19 16:40 | PM.PN.1 ---
Subjective Date Patient Seen: 12/19/18 Time Patient Seen: 16:00 Interval history: pt feeling well post colonoscopy. wants to eat. no more blood Exam Vital Signs (past 8 hours): - 12/19/18 09:48 12/19/18 12:48 12/19/18 12:50 Temperature 96.8 F L 97.8 F Pulse Rate 62 67 72 Respiratory Rate 16 16 16 Blood Pressure 170/73 H 151/117 H 161/69 H Pulse Oximetry 99 98 99 12/19/18 12:54 12/19/18 12:58 12/19/18 13:03 Temperature 97.5 F L Pulse Rate 70 71 67 Respiratory Rate 16 15 17 Blood Pressure 133/68 163/70 H 149/56 H Pulse Oximetry 99 99 99 12/19/18 13:29 12/19/18 14:00 12/19/18 14:05 Temperature 98.0 F 98.8 F Pulse Rate 65 69 67 Respiratory Rate 18 14 Blood Pressure 148/82 H 151/84 H 151/84 H Pulse Oximetry 98 98 12/19/18 14:06 12/19/18 14:44 12/19/18 15:39 Temperature 97.6 F 97.2 F L Pulse Rate 69 65 56 L Respiratory Rate 16 18 Blood Pressure 151/84 H 167/92 H 160/68 H Pulse Oximetry 98 98 Oxygen Delivery Method Room Air Oxygen Flow Rate 0 Narrative Exam Narrative: abd soft non tender non distended Objective Labs Result Diagrams: 12/19/18 05:16 12/19/18 05:16 Labs: Laboratory Results - last 24 hr 12/19/18 12/19/18 05:16 05:16 WBC 5.9 RBC 4.20 L Hgb 13.6 Hct 40.4 L MCV 96.2 MCH 32.5 MCHC 33.8 RDW 13.6 Plt Count 133 L Neut % (Auto) 71.7 Lymph % (Auto) 15.5 L [place] % (Auto) 10.7 Eos % (Auto) 1.7 L Baso % (Auto) 0.4 Neut # (Auto) 4300 Lymph # (Auto) 900 L [place] # (Auto) 600 Eos # (Auto) 100 Baso # (Auto) 0 Sodium 137 Potassium 4.1 Chloride 107 Carbon Dioxide 25 BUN 14 Creatinine 0.70 Estimated GFR > 60.0 BUN/Creatinine Ratio 20.0 Glucose 124 H Calcium 8.6 Assessment & Plan Assessment & Plan narrative: 83 yo man with hemorrhagic colitis involving rectum, sigmoid, and distal L colon. Clearly the source of bleeding but no active bleeding. Proimal colon normal. Plan - agree with colitis work up, infectious studies including c dif, send ESR and albumin. Apperence NOT consistent with ischemic colitis No bleeding in nearly 24hrs OK with advance to general diet. Once C diff results available OK for d/c tomorrow w/ or W/O tx as approprete as long as no longer bleeding. With nml CBC and non toxic pt would not start empiric abx. Should follow up with me in clinic for biopsy results in about 1 week. General Surgery will sign off Reyes Woods MD
[2018-12-19 17:32] LABS: Albumin 3.5 g/dL (3.5-5.0)
[2018-12-19 17:51] LABS: Erythrocyte Sedimentation Rate 20 MM/HR (0-15)
[2018-12-19] MEDS: ATORVASTATIN 10 MG TABLET 5 MG PO (22:00)
[2018-12-20] VITALS (7 sets, daily range): BP systolic 128–139; BP diastolic 54–68; PULSE 60–63; RESP 18–20; TEMP 36.6–36.7; O2SAT 95–97
--- NOTE | 2018-12-20 04:50 | PC.NURSE ---
Pt has not had a BM yet post colonoscopy so no stool sample to test. Eating well; regular diet. Denies N, pain. Voiding qs clear yellow.
[2018-12-20 08:22] LABS: Add Manual Diff / Slide Review NO; Basophils Absolute Auto 0 /uL (0-100); Basophils Percent Auto 0.5 % (0-2); Eosinophils Absolute Auto 100 /uL (0-450); Eosinophils Percent Auto 2.2 % (2-4); Hematocrit 38.7 % (41-53); Hemoglobin 13.1 g/dL (13.5-17.5); Lymphocytes Absolute Auto 800 /uL (1100-4500); Lymphocytes Percent Auto 17.6 % (25-40); Mean Corpuscular HGB Conc 33.8 % (30-36); Mean Corpuscular Hemoglobin 32.4 PG (26-34); Mean Corpuscular Volume 95.7 fL (80-100); Monocytes Absolute Auto 500 /uL (0-900); Monocytes Percent Auto 10.1 % (3-14); Neutrophils Absolute Auto 3200 /uL (1500-7000); Neutrophils Percent Auto 69.6 % (50-75); Platelet Count 125 X10^3/uL (150-400); Red Blood Cell Count 4.04 X10^6/uL (4.5-5.9); Red Cell Distribution Width 13.3 % (11.6-14.8); White Blood Cell Count 4.7 X10^3/uL (4.5-11.0)
[2018-12-20 08:55] LABS: Procalcitonin < 0.05 ng/mL (<0.5)
[2018-12-20] MEDS: ASPIRIN EC 81 MG TABLET PO (08:59)
[2018-12-20] MEDS: LISINOPRIL 20 MG TABLET PO (09:01)
[2018-12-20] MEDS: METOPROLOL ER 25 MG TABLET PO (09:02)
[2018-12-20] MEDS: TAMSULOSIN 0.4 MG CAPSULE 0.8 MG PO (09:02)
[2018-12-20] MEDS: SOLIFENACIN 5 MG TABLET 10 MG PO (09:02)
--- NOTE | 2018-12-20 11:44 | PM.DS.1 ---
History of Present Illness Date Patient Seen: 12/18/18 Chief complaint: RECTAL BLEEDING Narrative: Written by Dr. Waters: The patient is an 83-year-old male with a history of myocardial infarction 10 years ago, history of prostate cancer who was in his usual state of health until about a week ago. Patient was constipated and saw his PCP who started him on milk of magnesia. He initially had some activity. Then on Sunday 2 days prior to admission the patient had significant diarrhea. Today on the day of admission he developed lower abdominal crampy pain and bloody diarrhea. He presented to the hospital for evaluation. He was not found to be anemic but found to be markedly guaiac positive. He denies a prior history of rectal bleeding although he reports a 10 years ago an episode that turned out to be ?nothing. He has had no hematemesis. He has had no prior history of ulcer. He has had no abdominal surgeries. The patient had an NG tube placed for a colon prep and is having significant mucoid production but otherwise he has had no fever chills shortness of breath chest pain cough weight loss weight gain. He has chronic neuropathy. Patient was seen in the emergency room by General surgery. They are prepping his colon with plans for colonoscopy this evening. Discharge Providers Date of admission: 12/18/18 13:43 Discharge Date: 12/20/18 Primary care physician: YOANDY Zambrano Discharge provider: Rita Villalobos DO Summary Discharge Diagnosis: 1. Acute colitis, present on admission. Resolving. 2. Acute GI bleeding, present on admission. Resolved. 3. Peripheral neuropathy, chronic, present on admission. Stable. 4. Hypertension, chronic, present on admission. Stable. continue usual home medication 5. Hyperlipidemia, chronic, present on admission. Stable. 6. BPH, chronic, present on admission. Stable. Hospital Course: Kenneth Ward is an 83-year-old male with a past medical history significant for coronary artery disease status post [place] 10 years ago, hypertension, hyperlipidemia, and history of prostate cancer who presented for abrupt onset painless rectal bleeding. 1. Acute colitis, present on admission. Resolving. -Colonoscopy demonstrated left-sided colon and rectosigmoid acute colitis not consistent with appearance of ischemic colitis. Biopsies pending. -GI panel ordered but on collected as patient no longer had diarrhea or BMs. The likelihood of infectious diarrhea is very low in probability. -Continued to advance diet to heart healthy diet which was well tolerated prior to discharge. -General surgery was consulted we appreciate their time and care of the patient. Discussed patient with Dr. Aldrich, who agrees patient can discharge if he does not feel symptomatic and not having profuse diarrhea. He recommended a mesenteric CT in the near future (per PCP or Gen Surg) to assess for possible arterial lesion causing ischemic colitis even though appearance of colitis was not consistent with appearance of ischemic colitis there is still a high probability for such based on CAD and comorbidities. Recommended follow-up with General surgery in 1-2 weeks for biopsy results of colonoscopy. 2. Acute GI bleeding, present on admission. Resolved. -Patient took milk of magnesia for chronic constipation and had several bouts of diarrhea. He then awoke with blood in his underwear. -Continued IV fluid hydration until adequately hydrated. -Hemoglobin hematocrit stable. Monitored hemoglobin and hematocrit closely. 3. Peripheral neuropathy, chronic, present on admission. Stable. -Held patient's non-formulary nerve support supplement. 4. Hypertension, chronic, present on admission. Stable. continue usual home medication -Continued lisinopril 20 mg daily at bedtime and metoprolol succinate 25 mg daily. 5. Hyperlipidemia, chronic, present on admission. Stable. -Continued atorvastatin 5 mg daily at bedtime and aspirin 81 mg daily. 6. BPH, chronic, present on admission. Stable. -Continued tamsulosin 0.8 mg daily at bedtime and solifenacin 10 mg daily. Status at Discharge Functional status at discharge: independent ambulation Overall status at discharge: patient is back to baseline Exam Vital Signs (past 8 hours): - 12/20/18 05:00 12/20/18 08:18 12/20/18 08:30 Temperature 98.0 F 97.9 F Pulse Rate 60 61 Respiratory Rate 18 18 Blood Pressure 139/68 128/67 Pulse Oximetry 97 95 95 12/20/18 09:01 12/20/18 09:02 Temperature Pulse Rate Respiratory Rate Blood Pressure 128/67 128/67 Pulse Oximetry Oxygen Delivery Method Room Air Oxygen Flow Rate 0 Narrative Exam Narrative: General: Elderly gentleman sitting in bed and in no acute distress, well-developed, well-nourished, appropriately interactive. HEENT: Normocephalic, atraumatic. External ears without defect. Pupils equal, round, and reactive to light. Anicteric sclerae, moist conjunctivae, and no lid lag. Oropharynx free of erythema and cobble stoning with moist mucosa. Neck: Supple with full range of motion. No lymphadenopathy or thyromegaly. Cardiovascular: Regular rate and rhythm without murmurs, rubs, or gallops appreciated Pulmonary: Clear to auscultation bilaterally without crackles, wheezes, or rhonchi. Normal respiratory effort with no use of accessory muscles. Abdomen: Soft, bowel sounds present, nontender, nondistended. No hepatosplenomegaly or masses appreciated. Extremities: No clubbing, cyanosis, or edema. Skin: Normal temperature, turgor, and texture; no rash, ulcers, or subcutaneous nodules appreciated. Neurological: Cranial nerves grossly intact. Psychiatric: Normal mood and affect. Alert and oriented to person, place, and time. Objective Labs Result Diagrams: 12/20/18 08:15 12/19/18 05:16 Labs: Laboratory Results - last 24 hr 12/19/18 12/19/18 12/20/18 17:18 17:18 08:15 WBC 4.7 RBC 4.04 L Hgb 13.1 L Hct 38.7 L MCV 95.7 MCH 32.4 MCHC 33.8 RDW 13.3 Plt Count 125 L Neut % (Auto) 69.6 Lymph % (Auto) 17.6 L [place] % (Auto) 10.1 Eos % (Auto) 2.2 Baso % (Auto) 0.5 Neut # (Auto) 3200 Lymph # (Auto) 800 L [place] # (Auto) 500 Eos # (Auto) 100 Baso # (Auto) 0 ESR 20 H Albumin 3.5 Procalcitonin 12/20/18 08:15 WBC RBC Hgb Hct MCV MCH MCHC RDW Plt Count Neut % (Auto) Lymph % (Auto) [place] % (Auto) Eos % (Auto) Baso % (Auto) Neut # (Auto) Lymph # (Auto) [place] # (Auto) Eos # (Auto) Baso # (Auto) ESR Albumin Procalcitonin < 0.05 Discharge Plan Discharge Plan Patient Disposition: Home Discharge comment: You're being discharged home. Please follow-up with your primary care physician, Vikash Gomez, in the next 1 week. General surgery recommends a CT scan of your mesenteric arteries to assure that your colitis was not ischemic in nature. Please follow-up with Dr. Woods in the next 1 week to go over your biopsy results. Since you are not having significant abdominal pain or diarrhea this is likely not infectious in etiology. If you begin having fever, chills, nausea, vomiting, abdominal pain, profuse diarrhea please be seen immediately by medical professional. Please try to stay well hydrated and drink plenty of water at least 60 oz daily. Discharge Med Rec/Prescriptions Prescriptions: Continued aspirin [Adult Low Dose Aspirin] 81 mg tablet,delayed release (DR/EC) 81 mg PO DAILY RF: 0 atorvastatin 10 mg tablet 5 mg PO BEDTIME RF: 0 lisinopril 20 mg tablet 20 mg PO QPM RF: 0 Vesicare 10 mg tablet 10 mg PO DAILY RF: 0 nitroglycerin 0.4 mg tablet, sublingual 0.4 mg SL Q5-15M PRN (Reason: Chest Pain) RF: 0 alpha lipoic acid 600 mg capsule 600 mg PO DAILY RF: 0 tamsulosin [Flomax] 0.4 MG capsule,extended release 24hr 0.8 mg PO QPM Qty: 0 RF: 0 CoQ-10 400 mg PO QPM Qty: 0 RF: 0 ascorbic acid (vitamin C) 500 MG tablet 500 mg PO DAILY Qty: 0 RF: 0 Mag Glycinate 100 MG tablet 400 mg PO DAILY Qty: 0 RF: 0 [VITAMIN K2] 100 mcg PO QPM Qty: 0 RF: 0 rosuvastatin [Crestor] 5 mg tablet 2.5 mg PO 3XW Qty: 0 RF: 0 metoprolol succinate 25 mg tablet extended release 24 hr 25 mg PO DAILY RF: 0 Vitamin B-12 5,000 mcg Tablet, Sublingual 5,000 mcg SUBLINGUAL DAILY RF: 0 Vitamin D3 1,500 unit 1,500 units PO DAILY RF: 0 Nerve Support Formula 1 dose PO DAILY RF: 0 Follow up/Referrals: Vikash Gomez ARNP [Primary Care Provider] - 12/27/18 (General surgery recommended mesenteric CTA Follow up appointment on sunday at 11:30 am(check in time 11:15am)) Reyes Woods MD [Physician] - 1 Week (Surgeons office well call patient for the Appointment Isl. surgeons off no. [phone]) Provider Discharge Instructions Diet: Diet as Tolerated, Low-fat, Low-sodium and Low-cholesterol Activity: Activity as tolerated Visit Report/Discharge Packet Instructions: DI for Colitis Discharge Data Primary Care Provider: Vikash Gomez Attending Provider: Letty Waters Admwillard Date/Time: 12/18/18 13:43 Discharges patient from system. Discharge Date/Time: 12/20/18 13:20
--- NOTE | 2018-12-20 13:16 | PC.NURSE ---
Pt dressed and ready for discharge home with D.I.L.. Belongings are packed up and Dr. Villalobos has been in to see Pt. and explained discharge instructions. Discussed d/c meds, time of last dose, no new scripts, Pt to follow up with [facility] and his PCP as scheduled. Reviewed stroke education. No further questions-Pt out via w/c by [facility] to POV with family and all belongings.
== END 2018-12-20 13:20 | disposition home or self-care (01) ==
LOC: ED 11:58 → AC 13:43
PROVIDERS: Internal Medicine; Surgery; Admitting Provider Internal Medicine; Emergency Provider Emergency Medicine; PCP Nurse Practitioner Family; Visit Provider Internal Medicine
PROC: 0DJD8ZZ Inspection of Lower Intestinal Tract, Via Natural or Artificial Opening Endoscopic (ICD-10-PCS; CPT 45378; principal; 2018-12-19 11:45)
DX: K52.9 Noninfective gastroenteritis and colitis, unspecified (principal); K92.2 Gastrointestinal hemorrhage, unspecified; I25.10 Atherosclerotic heart disease of native coronary artery without angina pectoris; I10 Essential (primary) hypertension; Z85.46 Personal history of malignant neoplasm of prostate; G62.9 Polyneuropathy, unspecified; E78.5 Hyperlipidemia, unspecified; N40.0 Benign prostatic hyperplasia without lower urinary tract symptoms
CPT/HCPCS: 45378; 36415; 36591; 71045; 80048; 80053; 82040; 84145; 85014; 85025; 85610; 85651; 85730; 86850; 86900; 86901; 88305; 96360; 96361; 99225; 99283; 99285; G0378; J2250; J3010

== ENCOUNTER 2018-12-23 09:26 | Emergency (ER) | payer MEDICARE, OTHER, SELFPAY ==
[2018-12-20 12:38] VITALS: BMI 29.0
[2018-12-23 09:30] VITALS: BP 161/64; PULSE 84; RESP 15; TEMP 36.4; O2SAT 98
--- NOTE | 2018-12-23 09:38 | DI.RAD.S_ITS ---
PROCEDURE: XR CHEST 1V INDICATIONS: chest pain TECHNIQUE: One view of the chest was acquired. COMPARISON: [facility], CR, XR CHEST 1V, 12/18/2018, 13:32. [facility], CR, XR CHEST 1V, 04/14/2018, 12:10. FINDINGS: Surgical changes and devices: None. Lungs and pleura: Lungs are clear. No pleural effusions or pneumothorax. Mediastinum: Mediastinal contours appear normal. Heart size is normal. Bones and chest wall: No suspicious bony lesions. Overlying soft tissues appear unremarkable. IMPRESSION: Normal for age, source of current chest pain symptoms is not seen. Dictated by: Watson Dangelo M.D. on 12/23/2018 at 10:23 Approved by: Watson Dangelo M.D. on 12/23/2018 at 10:23
--- NOTE | 2018-12-23 09:46 | ED_ITS ---
HPI - Chest Pain General Chief Complaint: Chest Pain Stated Complaint: NAUSEA/L SIDE CHEST PAIN Time Seen by Provider: 12/23/18 09:39 Source: patient Mode of arrival: ambulatory Limitations: no limitations History of Present Illness HPI narrative: Patient is an 83-year-old male who presents with nausea and chills all and left-sided chest pain. he says he was doing well yesterday however this morning he woke up chill, no fever nauseated no belly pain no vomiting. He was actually here December 18 and discharged November for GI bleeding. The pain is pinpoint lasting for under a minute usually just a few seconds. It is nonradiating. He denies any shortness of breath. Related Data Home Medications Medication Instructions Recorded Confirmed CoQ-10 400 mg PO QPM #0 11/21/16 12/23/18 Mag Glycinate 400 mg PO DAILY #0 11/21/16 12/23/18 ascorbic acid (vitamin C) 500 mg PO DAILY #0 11/21/16 12/23/18 tamsulosin [Flomax] 0.8 mg PO QPM #0 11/21/16 12/23/18 [VITAMIN K2] 100 mcg PO QPM #0 03/06/17 12/23/18 alpha lipoic acid 600 mg capsule 600 mg PO DAILY 12/11/18 12/23/18 aspirin 81 mg tablet,delayed 81 mg PO DAILY 12/11/18 12/23/18 release atorvastatin 10 mg tablet 5 mg PO BEDTIME tab 12/11/18 12/23/18 lisinopril 20 mg tablet 20 mg PO QPM 12/11/18 12/23/18 nitroglycerin 0.4 mg sublingual 0.4 mg SL Q5-15M PRN 12/11/18 12/23/18 tablet rosuvastatin 5 mg tablet 2.5 mg PO 3XW #0 tab 12/11/18 12/23/18 solifenacin 10 mg tablet 10 mg PO DAILY 12/11/18 12/23/18 Nerve Support Formula 1 dose PO DAILY 12/18/18 12/23/18 Vitamin B-12 5,000 mcg SUBLINGUAL DAILY 12/18/18 12/23/18 Vitamin D3 1,500 units PO DAILY 12/18/18 12/23/18 metoprolol succinate 25 mg PO DAILY 12/18/18 12/23/18 Allergies Allergy/AdvReac Type Severity Reaction Status Date / Time No Known Drug Allergies Allergy Verified 12/23/18 09:36 Review of Systems Review of Systems ROS Unobtainable: All systems reviewed & are unremarkable except as noted in HPI and below Constitutional Denies chills, Denies fever(s), Denies lethargy and Denies weakness Eyes Denies change in vision, Denies eye discharge, Denies irritation and Denies loss of vision Cardiovascular Reports chest pain, Denies irregular heart rhythm, Denies lightheadedness, Denies palpitations and Denies orthopnea Gastrointestinal Gastrointestinal: Denies abdominal pain, Denies diarrhea and Denies nausea Comments: Recent GI bleed now stopped. Genitourinary Denies hematuria, Denies flank pain, Denies urinary incontinence and Denies urinary urgency Musculoskeletal Denies back pain, Denies muscle weakness, Denies numbness and Denies tingling Integumentary/Breasts Denies pruritus, Denies erythema, Denies rash and Denies wounds Neurologic Denies loss of vision, Denies numbness, Denies tingling and Denies weakness Endocrine Denies palpitations [facility] Social History marital status: household members: none Smoking Status: Former smoker second hand exposure: No alcohol intake: current substance use type: does not use Exam Initial Vital Signs Initial Vital Signs: Vital Signs Temperature 97.5 F L 12/23/18 09:30 Pulse Rate 84 12/23/18 09:30 Respiratory Rate 15 12/23/18 09:30 Blood Pressure 161/64 H 12/23/18 09:30 Pulse Oximetry 98 12/23/18 09:30 GENERAL: Alert pleasant elderly male no acute distress HEENT: Head atraumatic,EOMI, pupils reactive, CARDIOVASCULAR: Regular rate and rhythm without murmurs, rubs or gallops. Pain is not reproducible by palpation RESPIRATORY: Breath sounds equal bilaterally, no wheezes rales or rhonchi. ABDOMEN: Soft, nontender. Normoactive bowel sounds all 4 quadrants. No guarding or rebound. EXTREMITIES: Normal range of motion, no clubbing or edema. Neurovascularly intact NEUROLOGICAL: Alert and oriented x4.Normal gait and speech. Cranial nerves II through XII grossly intact. SKIN: Warm, dry, no laceration, no petechiae, no rashes or lesions. Course Orders Ordered: ED Orders 12/23/18 11:12 CT angio abdomen pelvis Stat 12/23/18 11:53 Troponin I Stat Vital Signs - 8 hr 12/23/18 12:00 12/23/18 12:43 Pulse Rate 52 L 51 L Respiratory Rate 18 17 Blood Pressure [Right Arm] 128/58 L 146/46 H Pulse Oximetry 97 97 MDM - Chest Pain Lab Data Attestation: I reviewed the patient's lab results. Result diagrams: 12/23/18 09:50 12/23/18 09:50 Lab Results 12/23/18 12/23/18 12/23/18 Range/Units 09:50 09:50 09:50 WBC 5.1 (4.5-11.0) X10^3/uL RBC 3.97 L (4.5-5.9) X10^6/uL Hgb 12.8 L (13.5-17.5) g/dL Hct 38.4 L (41-53) % MCV 96.8 (80-100) fL MCH 32.2 (26-34) PG MCHC 33.3 (30-36) % RDW 13.4 (11.6-14.8) % Plt Count 129 L (150-400) X10^3/uL Neut % (Auto) 75.5 H (50-75) % Lymph % (Auto) 12.3 L (25-40) % [place] % (Auto) 9.6 (3-14) % Eos % (Auto) 2.1 (2-4) % Baso % (Auto) 0.5 (0-2) % Neut # (Auto) 3800 (7491-5914) /uL Lymph # (Auto) 600 L (2057-1862) /uL [place] # (Auto) 500 (0-900) /uL Eos # (Auto) 100 (0-450) /uL Baso # (Auto) 0 (0-100) /uL PT 11.0 (10.1-12.7) SECONDS INR 1.0 (0.9-1.3) APTT 32 D (26.4-36.2) SECONDS Sodium 138 (137-145) mmol/L Potassium 4.5 (3.4-5.1) mmol/L Chloride 107 (98-107) mmol/L Carbon Dioxide 26 (22-32) mmol/L BUN 19 (9-20) mg/dL Creatinine 0.70 (0.66-1.25) mg/dL Estimated GFR > 60.0 (>60) mL/min BUN/Creatinine Ratio 27.1 H (6-22) Glucose 130 H (80-110) mg/dL Calcium 8.4 (8.4-10.2) mg/dL Total Bilirubin 0.3 (0.2-1.3) mg/dL AST 18 (17-59) IU/L ALT 19 L (21-72) IU/L Alkaline Phosphatase 53 (38-126) U/L Total Creatine Kinase 83 (55-170) U/L CK-MB (CK-2) TNP CK-MB (CK-2) Rel Index TNP Troponin I < 0.012 (0.01-0.034) ng/mL Total Protein 6.2 L (6.3-8.2) g/dL Albumin 3.5 (3.5-5.0) g/dL Globulin 2.7 (1.7-4.1) g/dL Albumin/Globulin Ratio 1.3 (1.0-2.8) Lipase 15 L (23-300) U/L 12/23/18 Range/Units 11:53 WBC (4.5-11.0) X10^3/uL RBC (4.5-5.9) X10^6/uL Hgb (13.5-17.5) g/dL Hct (41-53) % MCV (80-100) fL MCH (26-34) PG MCHC (30-36) % RDW (11.6-14.8) % Plt Count (150-400) X10^3/uL Neut % (Auto) (50-75) % Lymph % (Auto) (25-40) % [place] % (Auto) (3-14) % Eos % (Auto) (2-4) % Baso % (Auto) (0-2) % Neut # (Auto) (5295-2449) /uL Lymph # (Auto) (6566-6120) /uL [place] # (Auto) (0-900) /uL Eos # (Auto) (0-450) /uL Baso # (Auto) (0-100) /uL PT (10.1-12.7) SECONDS INR (0.9-1.3) APTT (26.4-36.2) SECONDS Sodium (137-145) mmol/L Potassium (3.4-5.1) mmol/L Chloride (98-107) mmol/L Carbon Dioxide (22-32) mmol/L BUN (9-20) mg/dL Creatinine (0.66-1.25) mg/dL Estimated GFR (>60) mL/min BUN/Creatinine Ratio (6-22) Glucose (80-110) mg/dL Calcium (8.4-10.2) mg/dL Total Bilirubin (0.2-1.3) mg/dL AST (17-59) IU/L ALT (21-72) IU/L Alkaline Phosphatase (38-126) U/L Total Creatine Kinase (55-170) U/L CK-MB (CK-2) CK-MB (CK-2) Rel Index Troponin I < 0.012 (0.01-0.034) ng/mL Total Protein (6.3-8.2) g/dL Albumin (3.5-5.0) g/dL Globulin (1.7-4.1) g/dL Albumin/Globulin Ratio (1.0-2.8) Lipase (23-300) U/L Urine Dip Bedside Urine Glucose Negative Bedside Urine Bilirubin - Negative Bedside Urine Ketone - Negative Urine Specific [place] 1.010 Bedside Urine Occult Blood - Negative Bedside Urine pH 5.5 Bedside Urine Protein - Negative Bedside Urine Urobilinogen - Negative Bedside Urine Nitrite - Negative Bedside Urine Leukocytes - Negative Esterase Imaging Data Chest x-ray: Radiologist's impression: PROCEDURE: XR CHEST 1V INDICATIONS: chest pain TECHNIQUE: One view of the chest was acquired. COMPARISON: Merged With [facility], , XR CHEST 1V, 12/18/2018, 13:32. Merged With [facility], , XR CHEST 1V, 04/14/2018, 12:10. FINDINGS: Surgical changes and devices: None. Lungs and pleura: Lungs are clear. No pleural effusions or pneumothorax. Mediastinum: Mediastinal contours appear normal. Heart size is normal. Bones and chest wall: No suspicious bony lesions. Overlying soft tissues appear unremarkable. IMPRESSION: Normal for age, source of current chest pain symptoms is not seen. Dictated by: Watson Dangelo M.D. on 12/23/2018 at 10:23 CT scan - abdomen: Radiologist's impression: PROCEDURE: CT ANGIO ABDOMEN PELVIS INDICATIONS: ?ischemic colitis, surgery request mesenteric CT TECHNIQUE: After the administration of intravenous contrast, 2.5 mm thick sections acquired from the diaphragm to the symphysis. 10 mm maximum-intensity projection (MIP) reformats were then acquired. For radiation dose reduction, the following was used: automated exposure control. COMPARISON: None. FINDINGS: Image quality: Excellent. Aorta: Normal in caliber without evidence of dissection or stenosis. Mild calcific and soft plaquing. Note is made of calcific atherosclerotic plaquing at the origin of each renal artery, where an estimated 50% stenosis is present, symmetric. Mesenteric arteries: Celiac trunk, superior and inferior mesenteric arteries appear patent without atherosclerotic stenosis. Right pelvic arteries: No aneurysm or stenosis found. Left pelvic arteries: No aneurysm or stenosis found. Extravascular soft tissues: Lung bases are clear. Heart size is normal. Liver is normal in size and enhancement. Gallbladder appears normal. Biliary system is non dilated. Pancreas enhances normally. Spleen is normal in size and enhancement. No adrenal nodules. Kidneys are normal in size and enhancement, without hydronephrosis. Non opacified bowel loops are normal in wall thickness and caliber. No free fluid or air. No retroperitoneal or mesenteric adenopathy. No ventral hernias. No suspicious bony lesions. No vertebral body compression fractures. Note is made of prostate radiation therapy seed implants at the midline of the low pelvis. IMPRESSION: No bowel wall thickening or edema is present. By this examination mesenteric ischemia affecting the large or small bowel is not suspected. Mild atherosclerotic soft and calcific plaquing involves the aorta. Stenosis is not found at the celiac axis origin or the superior mesenteric artery. Atherosclerotic calcific plaquing is present at the origin of each renal artery, with an estimated 50% stenosis as a result, symmetric bilaterally. Renal cortical parenchyma appears free of prior infarction or thinning. Dictated by: Watson Dangelo M.D. on 12/23/2018 at 11:38 ECG Data Attestation: I personally reviewed and interpreted this ECG as follows: Prior ECG tracings: available for review Interpretation: Normal sinus rhythm rate 61 p.r. interval [address] depressions some artifact noted no elevation or T-wave inversion MDM Narrative Medical decision making narrative: [id number] worried about ischemic colitis. Apparently he is supposed to have an outpatient CT to look at his m esenteric artery. He has absolutely no abdominal pain no further rectal bleeding. Patient and [id number] states that discharging physician was quite concerned about this they are requesting CT today. CT is negative for any sort of ischemic colitis. Chest pain does not seem like cardiac. He has 2-troponins. He is chest pain- free. At this time I think patient can go home. Outpatient follow-up advised. Discharge Plan Departure Patient Disposition: Home Clinical Impression: Atypical chest pain Discharge Date/Time: 12/23/18 13:02 Interventions: ED Discharge Assessment Last Done: 12/23/18 13:01 Instructions: DI for Atypical Chest Pain Activity Restrictions/Additional Instructions: *You have been diagnosed with atypical chest *What to do: At this time no sign of heart attack however it is recommended to may require further testing with your PCP. Including a stress test and/or echocardiogram. Her CT today did not show any signs mesenteric ischemia, you clinically do not have ischemic colitis *Continue to take medications as directed *Follow up with your primary care provider in 2-3 days *Return to nearest ER if you should have worsening or changing chest pain, persistent shortness of breath with exertion, abdominal pain, bloody stool or any new, worsening or concerning symptoms Prescriptions: No Action aspirin [Adult Low Dose Aspirin] 81 mg tablet,delayed release (DR/EC) 81 mg PO DAILY RF: 0 atorvastatin 10 mg tablet 5 mg PO BEDTIME RF: 0 lisinopril 20 mg tablet 20 mg PO QPM RF: 0 Vesicare 10 mg tablet 10 mg PO DAILY RF: 0 nitroglycerin 0.4 mg tablet, sublingual 0.4 mg SL Q5-15M PRN (Reason: Chest Pain) RF: 0 alpha lipoic acid 600 mg capsule 600 mg PO DAILY RF: 0 tamsulosin [Flomax] 0.4 MG capsule,extended release 24hr 0.8 mg PO QPM Qty: 0 RF: 0 CoQ-10 400 mg PO QPM Qty: 0 RF: 0 ascorbic acid (vitamin C) 500 MG tablet 500 mg PO DAILY Qty: 0 RF: 0 Mag Glycinate 100 MG tablet 400 mg PO DAILY Qty: 0 RF: 0 [VITAMIN K2] 100 mcg PO QPM Qty: 0 RF: 0 rosuvastatin [Crestor] 5 mg tablet 2.5 mg PO 3XW Qty: 0 RF: 0 metoprolol succinate 25 mg tablet extended release 24 hr 25 mg PO DAILY RF: 0 Vitamin B-12 5,000 mcg Tablet, Sublingual 5,000 mcg SUBLINGUAL DAILY RF: 0 Vitamin D3 1,500 unit 1,500 units PO DAILY RF: 0 Nerve Support Formula 1 dose PO DAILY RF: 0 Referrals: Vikash Gomez ARNP [Primary Care Provider] -
[2018-12-23 10:03] LABS: Add Manual Diff / Slide Review NO; Basophils Absolute Auto 0 /uL (0-100); Basophils Percent Auto 0.5 % (0-2); Eosinophils Absolute Auto 100 /uL (0-450); Eosinophils Percent Auto 2.1 % (2-4); Hematocrit 38.4 % (41-53); Hemoglobin 12.8 g/dL (13.5-17.5); Lymphocytes Absolute Auto 600 /uL (1100-4500); Lymphocytes Percent Auto 12.3 % (25-40); Mean Corpuscular HGB Conc 33.3 % (30-36); Mean Corpuscular Hemoglobin 32.2 PG (26-34); Mean Corpuscular Volume 96.8 fL (80-100); Monocytes Absolute Auto 500 /uL (0-900); Monocytes Percent Auto 9.6 % (3-14); Neutrophils Absolute Auto 3800 /uL (1500-7000); Neutrophils Percent Auto 75.5 % (50-75); Platelet Count 129 X10^3/uL (150-400); Red Blood Cell Count 3.97 X10^6/uL (4.5-5.9); Red Cell Distribution Width 13.4 % (11.6-14.8); White Blood Cell Count 5.1 X10^3/uL (4.5-11.0)
[2018-12-23 10:09] LABS: PTT Partial Thromboplastin Tim 32 SECONDS (26.4-36.2)
[2018-12-23 10:11] LABS: Alanine Aminotransferase 19 IU/L (21-72); Albumin 3.5 g/dL (3.5-5.0); Albumin Globulin Ratio 1.3 (1.0-2.8); Alkaline Phosphatase 53 U/L (38-126); Aspartate Aminotransferase 18 IU/L (17-59); BUN Creatinine Ratio 27.1 (6-22); Bilirubin Total 0.3 mg/dL (0.2-1.3); Blood Urea Nitrogen 19 mg/dL (9-20); Calcium 8.4 mg/dL (8.4-10.2); Carbon Dioxide 26 mmol/L (22-32); Chloride 107 mmol/L (98-107); Creatine Kinase 83 U/L (55-170); Estimated Glomerular Filt Rate > 60.0 mL/min (>60); Globulin 2.7 g/dL (1.7-4.1); Glucose 130 mg/dL (80-110); HEMOLYSIS < 15 (0-50); Lipase 15 U/L (23-300); Potassium 4.5 mmol/L (3.4-5.1); Sodium 138 mmol/L (137-145); Total Protein 6.2 g/dL (6.3-8.2)
[2018-12-23 10:23] LABS: Troponin I < 0.012 ng/mL (0.01-0.034)
[2018-12-23 10:26] VITALS: BP 134/53; PULSE 82; RESP 14; O2SAT 98
[2018-12-23 10:43] VITALS: BP 117/61; PULSE 52; RESP 16; O2SAT 98
[2018-12-23 11:00] VITALS: BP 132/54; PULSE 48; RESP 16; O2SAT 99
--- NOTE | 2018-12-23 11:12 | DI.CT.S_ITS ---
PROCEDURE: CT ANGIO ABDOMEN PELVIS INDICATIONS: ?ischemic colitis, surgery request mesenteric CT TECHNIQUE: After the administration of intravenous contrast, 2.5 mm thick sections acquired from the diaphragm to the symphysis. 10 mm maximum-intensity projection (MIP) reformats were then acquired. For radiation dose reduction, the following was used: automated exposure control. COMPARISON: None. FINDINGS: Image quality: Excellent. Aorta: Normal in caliber without evidence of dissection or stenosis. Mild calcific and soft plaquing. Note is made of calcific atherosclerotic plaquing at the origin of each renal artery, where an estimated 50% stenosis is present, symmetric. Mesenteric arteries: Celiac trunk, superior and inferior mesenteric arteries appear patent without atherosclerotic stenosis. Right pelvic arteries: No aneurysm or stenosis found. Left pelvic arteries: No aneurysm or stenosis found. Extravascular soft tissues: Lung bases are clear. Heart size is normal. Liver is normal in size and enhancement. Gallbladder appears normal. Biliary system is non dilated. Pancreas enhances normally. Spleen is normal in size and enhancement. No adrenal nodules. Kidneys are normal in size and enhancement, without hydronephrosis. Non opacified bowel loops are normal in wall thickness and caliber. No free fluid or air. No retroperitoneal or mesenteric adenopathy. No ventral hernias. No suspicious bony lesions. No vertebral body compression fractures. Note is made of prostate radiation therapy seed implants at the midline of the low pelvis. IMPRESSION: No bowel wall thickening or edema is present. By this examination mesenteric ischemia affecting the large or small bowel is not suspected. Mild atherosclerotic soft and calcific plaquing involves the aorta. Stenosis is not found at the celiac axis origin or the superior mesenteric artery. Atherosclerotic calcific plaquing is present at the origin of each renal artery, with an estimated 50% stenosis as a result, symmetric bilaterally. Renal cortical parenchyma appears free of prior infarction or thinning. Dictated by: Watson Dangelo M.D. on 12/23/2018 at 11:38 Approved by: Watson Dangelo M.D. on 12/23/2018 at 11:42
[2018-12-23 12:00] VITALS: BP 128/58; PULSE 52; RESP 18; O2SAT 97
[2018-12-23 12:27] LABS: Troponin I < 0.012 ng/mL (0.01-0.034)
[2018-12-23 12:43] VITALS: BP 146/46; PULSE 51; RESP 17; O2SAT 97
== END 2018-12-23 13:02 | disposition home or self-care (01) ==
PROVIDERS: Emergency Provider Emergency Medicine; PCP Nurse Practitioner Family
DX: R07.89 Other chest pain (principal); R11.0 Nausea; R68.83 Chills (without fever); Z79.82 Long term (current) use of aspirin
CPT/HCPCS: 36415; 36591; 71045; 74174; 80053; 81003; 82550; 83690; 84484; 85025; 85610; 85730; 93005; 99283; 99285; Q9967

== ENCOUNTER → 2019-01-23 16:15 | Outpatient (CLI) | payer MEDICARE, OTHER, SELFPAY ==
[2018-12-20 12:38] VITALS: BMI 29.0
[2019-01-23 17:21] LABS: Hematocrit 40.4 % (41-53); Hemoglobin 13.5 g/dL (13.5-17.5); Mean Corpuscular HGB Conc 33.4 % (30-36); Mean Corpuscular Hemoglobin 32.2 PG (26-34); Mean Corpuscular Volume 96.5 fL (80-100); Platelet Count 140 X10^3/uL (150-400); Red Blood Cell Count 4.19 X10^6/uL (4.5-5.9); Red Cell Distribution Width 13.4 % (11.6-14.8); White Blood Cell Count 5.7 X10^3/uL (4.5-11.0)
[2019-01-23 17:22] LABS: Hemoglobin A1C% w Est Avg Glu 5.5 % (4.0-6.0)
[2019-01-23 17:23] LABS: Reticulocyte Count, Percent 1.5 % (0.87-2.60)
[2019-01-23 17:38] LABS: HEMOLYSIS < 15 (0-50); Iron 71 ug/dL (49-181)
[2019-01-23 17:47] LABS: Percent Iron Saturation 23 % (20-50); Total Iron Binding Capacity 305 ug/dL (261-462); Transferrin 239 mg/dL (206-381)
[2019-01-23 17:56] LABS: Vitamin D 25 Hydroxy (D3) 42.3 ng/mL (30.0-100.0)
[2019-01-23 18:14] LABS: Ferritin 85.3 ng/mL (17.9-464)
[2019-01-23 18:45] LABS: Folate > 20.0 ng/mL (2.76-20.0)
== END ==
PROVIDERS: PCP Student in an Organized Health Care Education/Training Program; Visit Provider Student in an Organized Health Care Education/Training Program
DX: D64.9 Anemia, unspecified (principal); E66.9 Obesity, unspecified; R73.09 Other abnormal glucose; E55.9 Vitamin D deficiency, unspecified
CPT/HCPCS: 36415; 82306; 82728; 82746; 83036; 83540; 83550; 85027; 85045

== ENCOUNTER → 2019-02-03 13:49 | Outpatient (CLI) | payer MEDICARE, OTHER, SELFPAY ==
[2018-12-20 12:38] VITALS: BMI 29.0
--- NOTE | 2019-02-03 13:52 | DI.NM.S_ITS ---
PROCEDURE: NM SHARON PERF SPECT REST & STR Rest and exercise myocardial perfusion SPECT. Gated images not obtained. RADIOPHARMACEUTICAL: 24.6 mCi Tc-99m sestamibi IV at rest and 26.6 mCi Tc-99m sestamibi IV at peak exercise. A two day-protocol was performed. INDICATIONS: atypical chest pain TECHNIQUE: Radiopharmaceutical was injected at peak stress test, and also at rest. SPECT images were obtained, with perfusion images displayed in short axis, horizontal long axis, and vertical long axis views. COMPARISON: None. CARDIAC STRESS: A standard Ryan treadmill exercise tolerance test was performed by the patient under the supervision of an attending staff. The patient exercised for 3 minutes and 9 seconds reachng 4.6 METs; functional aerobic impairment (ADAM) is +45% on active scale. Hemodynamic data: There is normal blood pressure and heart rate response to exercise stress. Patient achieved 100% of maximum predicted heart rate at peak exercise. Symptoms: Patient denied chest pain during exercise. EKG: Resting ECG shows sinus rhythm with mild ST depressions in the inferior leads. With exercise, there were new horizontal ST depressions in the anterolateral leads. Occasional PVCs with exercise. FINDINGS: Raw data: There is good myocardial labeling by radiotracer. No significant motion artifacts. Isaz-ks-tkyce ratio is 0.19 (normal is less than 0.38 for sestamibi tracer, and less than 0.50 for thallium tracer). Left ventricle function: Gated images were not obtained to evaluate wall motion and ejection fraction. Myocardial perfusion: Moderately intense fixed defect at the apex that resolves with prone imaging suggesting artifact. Moderately intense fixed defect in the inferior wall that resolves in the distal inferior wall and improves in the basal to mid inferior wall but doesn't completely resolving suggesting prior non-transmural infarct or ischemia (since no supine prone images) or artifact. IMPRESSION: Abnormal nuclear stress test 1) Abnormal perfusion images. Moderately intense fixed defect in the inferior wall that resolves in the distal inferior wall and improves in the basal to mid inferior wall but doesn't completely resolving suggesting prior non-transmural infarct or ischemia (since no supine prone images) or artifact. Moderately intense fixed defect at the apex that resolves with prone imaging suggesting artifact. 2) Normal left ventricular size, wall motion, and systolic function (EF post stress 65%). 3) ECG possibly suggestive of ischemia as exercise induced mild horizontal ST depressions in the anterolateral leads. 4) No angina during the study. 5) Poor exercise tolerance (4.6 METs, ADAM +45%). 6) No prior nuclear stress test available for comparison. Dictated by: Agustina Stephens MD on 02/04/2019 at 15:51 Approved by: Agustina Stephens MD on 02/04/2019 at 16:00
--- NOTE | 2019-02-03 14:47 | PM.TREADMILL ---
Cardiac Stress Test Report Referral & Results Date Patient Seen: 02/03/19 Requesting provider: Osbaldo Cuevas Rest ECG: Nonspecific interventricular conduction delay Procedure Note: Today following both written and verbal informed consent the patient was exercised according to a standard Ryan protocol patient went for a total of 3 minutes 9 seconds achieving a maximum heart rate of 126 maximum systolic blood pressure of 200. This is approximately 4.6 METS. Exercise was terminated at this point because of targets for met an inability the patient keep up with the treadmill. Patient was also given Cardiolite through a previously started Hep-Lock IV by the nuclear process engineer approximately 1 minute prior to the cessation of exercise. There are no ST-T segment changes Normal heart rate and blood pressure response to exercise Rare PVC and occasional PAC identified Functional aerobic impairment rated 30% of the sedentary scale Impression: No ECG evidence of ischemia Please see perfusion imaging report as well Please note: Actual ECG tracings can be found in the PACS system.
== END ==
PROVIDERS: PCP Student in an Organized Health Care Education/Training Program; Visit Provider Student in an Organized Health Care Education/Training Program
DX: R07.89 Other chest pain (principal); R94.39 Abnormal result of other cardiovascular function study
CPT/HCPCS: 78452; 93016; 93017; 93018; A9502

== ENCOUNTER → 2019-02-07 07:07 | Outpatient (CLI) | payer MEDICARE, OTHER, SELFPAY ==
[2018-12-20 12:38] VITALS: BMI 29.0
--- NOTE | 2019-02-07 07:09 | DI.ECHO.S_ITS ---
[facility]+ [facility] +---------+ : : [address] : : : : [id number] : : : : Phone: [phone]+ Echocardiogram Report + + :Name: ALEJO COWAN Study Date: 02/07/2019 Height: 65 in : :[facility] Exam Location: [facility] Weight: 188 lb : : Gender: Male BSA: 1.9 m2 : :: 1935 Age: 83 yrs BP: 127/78 mmHg: :Reason For Study: CHEST PAIN : : Performed By: Ronak Dolan : :Referring: RAMON ORDAZ : + + Interpretation Summary Normal sinus rhythm. Normal LV size, wall thickness; there is septal dyskinesis c/w conduction system abnormality. Otherwise there is normal wall motion and LV systolic function. EF is 55-60%. Severe LA enlargement; otherwise normal chamebr sizes. There is PFO present. Mild MAC with mild associated MR. Otherwise no significant valvular abnormalities. Compared to prior study 04/23/2015 no changes have occurred. Procedure: A two-dimensional transthoracic echocardiogram with color flow and Doppler was performed. The study quality was technically adequate. Images from the parasternal window were difficult to obtain and are suboptimal in quality. Comparison is made with the echocardiogram of 04/23/15. The patient was in normal sinus rhythm during the exam. Left Ventricle: The left ventricle is normal in size. Left ventricular wall thickness is mildly increased. The ejection fraction is estimated to be 55- 60%. Septal motion is consistent with conduction abnormality. Right Ventricle: The right ventricle is normal in size and function. Atria: The left atrium is severely dilated. Right atrial size is normal. A patent foramen ovale is present. Mitral Valve: The mitral valve is normal in structure and function. There is mild mitral annular calcification. There is mild mitral regurgitation. Aortic Valve: The aortic valve is trileaflet. The aortic valve opens well. No aortic regurgitation is present. There is mild aortic regurgitation. Tricuspid Valve: The tricuspid valve is normal in structure and function. No tricuspid regurgitation. Pulmonary artery pressures cannot be estimated because of the lack of a measurable TR jet velocity. Pulmonic Valve: The pulmonic valve is normal in structure and function. There is trace pulmonic regurgitation. Great Vessels: The aortic root is normal size. The ascending aorta is mildly enlarged. The pulmonary artery is normal size. The IVC is of normal diameter and collapses greater than 50% with a sniff. This suggests a low right atrial pressure of 3 mm Hg. Pericardium/ Pleura There is no pericardial effusion. There is no pleural effusion. MMode/2D Measurements & Calculations LVIDd: 5.3 cm LVOT diam: 2.5 cm LVIDs: 3.7 cm Ao root diam: 3.7 cm FS: 29.5 % Aortic Jxn: 2.9 cm EPSS: 0.90 cm asc Aorta Diam: 3.8 cm IVSd: 1.3 cm LVPWd: 0.96 cm LV mays. diameter/BSA (cm/m^2): 2.7 LV sys. diameter/BSA (cm/m^2): 1.9 LA dimension: 4.1 cm RA long axis: 4.8 cm LA A2 area: 35.9 cm2 RA area: 16.5 cm2 LA A4 area: 27.0 cm2 RA vol: 47.7 ml LA length (vol): 6.8 cm RA : 24.8 ml/m2 LA vol: 120.7 ml IVC diam: 1.7 cm LA vol index: 62.7 ml/m2 Doppler Measurements & Calculations Ao V2 max: 117.2 cm/sec LVOT Max Joaquin: 92.2 cm/sec Ao V2 mean: 84.7 cm/sec LV V1 max P.4 mmHg Ao max P.5 mmHg LV V1 VTI: 21.2 cm Ao mean P.1 mmHg LISSA(I,D): 4.1 cm2 Ao V2 VTI: 25.8 cm LISSA(V,D): 3.9 cm2 sev ratio: 0.82 LISSA indexed to BSA (cm^2/m^2): 2.1 MV E max joaquin: 72.1 cm/sec PA V2 max: 81.0 cm/sec MV A max joaquin: 83.4 cm/sec PA V2 mean: 58.6 cm/sec MV E/A: 0.86 PA mean P.5 mmHg Med Peak E' Joaquin: 3.9 cm/sec PA pr(Accel): 29.1 mmHg E/E' med: 18.4 PA Accel Time: 0.09 sec Lat Peak E' Joaquin: 8.3 cm/sec E/E' lat: 8.7 E/e' average: 13.6 MV dec time: 0.13 sec SV(LVOT): 104.7 ml Electronically signed by: Juana Caruso M.D. on Reading Physician:02/08/2019 03:23 PM
== END ==
PROVIDERS: PCP Student in an Organized Health Care Education/Training Program; Visit Provider Student in an Organized Health Care Education/Training Program
DX: I08.0 Rheumatic disorders of both mitral and aortic valves (principal); R07.89 Other chest pain
CPT/HCPCS: 93306

== ENCOUNTER 2019-03-12 12:00 | Outpatient (RCR) | payer MEDICARE, OTHER, SELFPAY ==
--- NOTE | 2018-07-11 14:14 | PT.OIE ---
Current Diagnoses Muscle weakness (generalized) (07/11/18) Other abnormalities of gait and mobility (07/11/18) Repeated falls (07/11/18) Past Medical History (Last Reviewed 04/18/18 @ 15:[address] MD) Non-allergic rhinitis (Chronic) Balance problems (Chronic 02/08/16) Coronary artery disease involving enterprise coronary artery of enterprise heart without angina pectoris (Chronic 02/08/16) Essential hypertension (Chronic 02/08/16) History of malignant neoplasm of prostate (Chronic 04/08/15) Pure hypercholesterolemia (Chronic 02/08/16) Spinal stenosis of lumbar region (Chronic 02/08/16) Statin intolerance (Chronic 02/08/16) Gastroesophageal reflux disease (Chronic 06/13/16) Fatigue (Chronic 08/03/16) Dysphagia (Chronic 09/04/16) Vitamin D deficiency (Chronic 11/21/16) Left foot drop (Chronic 03/06/17) Peripheral polyneuropathy (Chronic 03/06/17) Coronary artery disease (Chronic 2008) GERD (gastroesophageal reflux disease) (Chronic Unknown) Hearing loss (Chronic 2014) Hypercholesterolemia (Chronic Unknown) Hypertension (Chronic Unknown) Lumbar disc disease (Chronic 2012) Spinal stenosis (Chronic Unknown) Chickenpox (Resolved) Hx of myocardial infarction (Resolved Unknown) Measles (Resolved) Polio (Resolved 1949) Prostate cancer (Resolved 2008) Headache (Inactive) Past Surgical History (Last Reviewed 02/15/18 @ 10:[address] MD) History of prostate surgery (Resolved 2009) Hx of heart surgery (Resolved 2008) Hx of hernia repair (Resolved Unknown) Status post laminectomy Provider Visit Care Team Role Provider Type Main St MD Family Provider Physician Primary Care Provider Specialty: Family Practice Address: [address] [place] [address], [id number] Email: [email or web address] Karin Hawkins MD Attending Provider Non-Staff Specialty: Neurology Address: [address] [place] [address], [id number] Email: Physical Therapy Initial Evaluation PT-OP-A Visit Information Start: 07/11/18 13:51 Freq: Status: Active Protocol: Document 07/11/18 11:15 DCW (Rec: 07/11/18 14:11 [facility] [id number]) Out-Patient Physical Therapy Visit Information Visit Information Visit Type Initial Evaluation Visit Start Time 11:15 Visit Stop Time 12:00 Total Visit Minutes 45 Visit Number 1 Number of BROKERAGE MANAGER Visits 0 Evaluation Information Evaluation Date 07/11/18 PT-OP-B Current Condition Start: 07/11/18 13:51 Freq: Status: Active Protocol: Document 07/11/18 11:15 DCW (Rec: 07/11/18 14:11 [facility] [id number]) Current Condition History of Current Condition Onset Date Multi-year history Current Complaints Instability, core weakness, LE weakness, L drop foot, history of falls History of Current Condition Pt is an 82 year old male presenting with a multi-year history of imbalance, falls, and weakness. Pt has been seen at this facility multiple times previously, and admits that my biggest problem is that I have no self-discipline , and I never do what I'm supposed to do unless I'm coming in here. Admits that he has never developed any core strength, even though he knows that it would be a big help. 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 Pt notes that he had previously had drop foot in 2009 following chemo and radiation for prostate cancer, but it eventually went away on its own, and was never as bad as it is now. Pt also notes that he has neuropathy in both feet, but he believes that it has actually been improving, or at least it isn't bothering me as much. Prior Treatments and Tests Prior physical therapy sessions at this facility Treatment Goals Patient/Caregiver Goals Pt wants to improve his stability and core strength, and return to working out at [facility]. PT-OP-C Subjective Start: 07/11/18 13:51 Freq: Status: Active Protocol: Document 07/11/18 11:15 DCW (Rec: 07/11/18 14:11 [facility] [id number]) Patient Questionnaires Lower Extremity Functional Scale LEFS Score 38/80 = 47.5% OP-PT Pain Assessment Pain Assessment Grid Paper Pain Assessment Grid Completed No PT-OP-D Balance Start: 07/11/18 13:51 Freq: Status: Active Protocol: Document 07/11/18 11:15 DCW (Rec: 07/11/18 14:11 [facility] [id number]) OP-PT Balance Assessment Standing Balance Static Standing Balance Ability Good Dynamic Standing Balance Ability Fair Device Used SPC Balance Tests Garza Balance Test Garza Balance Test Score 49/56 Garza Impairment Rating 1 to 19% Impaired (Score 45-55 ) mCTSIB mCTSIB Position 1 Slight Sway mCTSIB Position 2 Mild Sway mCTSIB Position 3 Mild Sway mCTSIB Position 4 Fall Reaction Garza Balance Assessment Evaluation Sitting to Standing Ability Independent w/out Hands Unsupported Stance Safely- 2 minutes Sitting Unsupported, Feet on Floor Safely- 2 minutes Standing to Sitting Ability Safely, Minimal Hand Use Transfer Ability Safely, Minimal Hand Use Unsupported Stance- Eyes Closed Safely, 10 seconds Unsupported Stance- Eyes Open Independent, 1 minute Reaching Forward Standing Safely, 5 inches Pick- Up Object From Floor Independent/Safe Look Behind Shoulder - Standing Shifts Weight Unilateral Turning 360 Degrees Turns , < 4 secs Unsupported Stance, Alternating Feet on (I)- 8 Steps in 20 secs Stair Unsupported Tandem Stance Holds Tandem- 30 seconds Unilateral Leg Stance Lifts Leg/Unable to Hold Total Score Garza Total Score (out of 56 points) 49 Garza Impairment Rating 1 to 19% Impaired (Score 45-55 ) March Fall Scale Copyright Permission Joaquim ZUNIGA, Joaquim RM, Matias SJ. Development of a scale to identify the fall- prone patient. Can J Aging 1989;8;366-7. Rina March (2009). Preventing patient falls. (2nd ed). [place]: [place]. PT-OP-E Functional Tests Start: 07/11/18 13:51 Freq: Status: Active Protocol: Document 07/11/18 11:15 DCW (Rec: 07/11/18 14:11 [facility] [id number]) Functional Tests Dynamic Gait Index (DGI) Score 15/24 DGI Impairment Rating 20 to <40% Impaired (Score 15- 19) PT-OP-M Strength Start: 07/11/18 13:51 Freq: Status: Active Protocol: Document 07/11/18 11:15 DCW (Rec: 07/11/18 14:11 [facility] [id number]) Hip Strength Hip Manual Muscle Testing Right Flexion (L2) 4 Good Abduction 4+ Good+ Adduction 4 Good Left Flexion (L2) 4 Good Abduction 4+ Good+ Adduction 4 Good Knee Strength Knee Manual Muscle Testing Right Flexion (S2) 4+ Good+ Extension (L3) 4+ Good+ Left Flexion (S2) 4+ Good+ Extension (L3) 4+ Good+ Ankle/Foot Strength Ankle and Foot Manual Muscle Testing Right Dorsiflexion (L4) 4 Good Plantarflexion (S1) 4- Good- Left Dorsiflexion (L4) 3- Fair- Plantarflexion (S1) 3+ Fair+ PT-OP-T Assessment and Plan Start: 07/11/18 13:51 Freq: Status: Active Protocol: Document 07/11/18 11:15 DCW (Rec: 07/11/18 14:11 [facility] [id number]) Physical Therapy Assessment Rehab Potential Rehabilitation Potential Good Evaluation Complexity Number of Personal Factors/Comorbidities 1-2 Number of Body Systems Impaired 3 Clinical Presentation at Evaluation Stable Impairments Impairments Activity Tolerance Balance Gait Posture Sensation Strength Goals Four Impairment Dynamic Balance [facility] Goal (LTG) Pt to score 20/24 on DGI LTG Duration 09/10/18 Three Impairment Drop foot Transplanter Goal (LTG) Pt to complete 2 MWT with no instances of drop foot LTG Duration 09/10/18 Two Impairment Activity participation [facility] Goal (LTG) Pt to return to working out safely at [facility] with no balance concerns LTG Duration 09/10/18 One Impairment Pt has been non-compliant with previous home exercise programs Short Term Goal (STG) Pt to be independent and compliant with appropriate HEP STG Duration 08/10/18 Assessment Summary Assessment Pt presents with signs and symptoms consistent with generalized weakness and imbalance. Complicating factors for this particular patient include bilateral neuropathy, left foot drop, and prior PT with limited effectiveness due to non- compliance with HEP. Pt should benefit from skilled therapy focusing on LE and core strengthening, balance training, gait training, and an independent HEP that pt is able to continue outside of therapy. Physical Therapy Plan Frequency and Duration Frequency of Treatment 2x/Week Duration of Treatment 12 weeks Plan of Care Start Date 07/11/18 Plan of Care End Date 10/03/18 Therapeutic Interventions Therapeutic Interventions Aquatic Therapy Balance Training Gait Training Home Exercise Program Manual Therapy Neuromuscular Re-education Patient/Caregiver Education Self-Care/Home Management Soft Tissue Mobilization Therapeutic Activities Therapeutic Exercises Modalities Cold Pack/Ice Massage Hot Packs Next Visit Focus/Plan Next Note Type Treatment Note Next Visit Plan LE strengthening (particularly L ankle), balance training
--- NOTE | 2018-07-11 14:14 | PT.OPPOC ---
Current Diagnoses Muscle weakness (generalized) (07/11/18) Other abnormalities of gait and mobility (07/11/18) Repeated falls (07/11/18) Provider Visit Care Team Role Provider Type Main St MD Family Provider Physician Primary Care Provider Specialty: Family Practice Address: [address] [place] [address], [id number] Email: [email or web address] Karin Hawkins MD Attending Provider Non-Staff Specialty: Neurology Address: [address] [place] [address], [id number] Email: Plan Of Care PT-OP-T Assessment and Plan Start: 07/11/18 13:51 Freq: Status: Active Protocol: Document 07/11/18 11:15 DCW (Rec: 07/11/18 14:11 DCW [id number]) Physical Therapy Assessment Rehab Potential Rehabilitation Potential Good Evaluation Complexity Number of Personal Factors/Comorbidities 1-2 Number of Body Systems Impaired 3 Clinical Presentation at Evaluation Stable Impairments Impairments Activity Tolerance Balance Gait Posture Sensation Strength Goals Four Impairment Dynamic Balance Security Field Supervisor Goal (LTG) Pt to score 20/24 on DGI LTG Duration 09/10/18 Three Impairment Drop foot Skilled Nursing Goal (LTG) Pt to complete 2 MWT with no instances of drop foot LTG Duration 09/10/18 Two Impairment Activity participation Skilled Nursing Goal (LTG) Pt to return to working out safely at [facility] with no balance concerns LTG Duration 09/10/18 One Impairment Pt has been non-compliant with previous home exercise programs Short Term Goal (STG) Pt to be independent and compliant with appropriate HEP STG Duration 08/10/18 Assessment Summary Assessment Pt presents with signs and symptoms consistent with generalized weakness and imbalance. Complicating factors for this particular patient include bilateral neuropathy, left foot drop, and prior PT with limited effectiveness due to non- compliance with HEP. Pt should benefit from skilled therapy focusing on LE and core strengthening, balance training, gait training, and an independent HEP that pt is able to continue outside of therapy. Physical Therapy Plan Frequency and Duration Frequency of Treatment 2x/Week Duration of Treatment 12 weeks Plan of Care Start Date 07/11/18 Plan of Care End Date 10/03/18 Therapeutic Interventions Therapeutic Interventions Aquatic Therapy Balance Training Gait Training Home Exercise Program Manual Therapy Neuromuscular Re-education Patient/Caregiver Education Self-Care/Home Management Soft Tissue Mobilization Therapeutic Activities Therapeutic Exercises Modalities Cold Pack/Ice Massage Hot Packs Next Visit Focus/Plan Next Note Type Treatment Note Next Visit Plan LE strengthening (particularly L ankle), balance training Plan of Care Dates Plan of Care Start Date 07/11/18 Plan of Care End Date 10/03/18 Please Sign and Return: I have reviewed this Plan of Care and certify that the skilled therapy services above are required to meet the patient?s needs. Physician Signature Date Printed Name and Credentials Clinical Instructor Signature Printed Name and Credentials
--- NOTE | 2018-07-16 12:00 | PT.OTN ---
Current Diagnoses Other abnormalities of gait and mobility (07/16/18) Physical Therapy Treatment Note PT-OP-A Visit Information Start: 07/11/18 13:51 Freq: Status: Active Protocol: Document 07/16/18 11:15 DCW (Rec: 07/16/18 12:00 DCW [id number]) Out-Patient Physical Therapy Visit Information Visit Information Visit Type Treatment Note Visit Start Time 11:15 Visit Stop Time 12:00 Total Visit Minutes 45 Visit Number 2 Number of UPHOLSTERY TRIMMER Visits 0 Evaluation Information Evaluation Date 07/11/18 PT-OP-B Current Condition Start: 07/11/18 13:51 Freq: Status: Active Protocol: Document 07/11/18 11:15 DCW (Rec: 07/11/18 14:11 DCW [id number]) Current Condition History of Current Condition Onset Date Multi-year history Current Complaints Instability, core weakness, LE weakness, L drop foot, history of falls History of Current Condition Pt is an 82 year old male presenting with a multi-year history of imbalance, falls, and weakness. Pt has been seen at this facility multiple times previously, and admits that my biggest problem is that I have no self-discipline , and I never do what I'm supposed to do unless I'm coming in here. Admits that he has never developed any core strength, even though he knows that it would be a big help. 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 Pt notes that he had previously had drop foot in 2009 following chemo and radiation for prostate cancer, but it eventually went away on its own, and was never as bad as it is now. Pt also notes that he has neuropathy in both feet, but he believes that it has actually been improving, or at least it isn't bothering me as much. Prior Treatments and Tests Prior physical therapy sessions at this facility Treatment Goals Patient/Caregiver Goals Pt wants to improve his stability and core strength, and return to working out at [facility]. PT-OP-C Subjective Start: 07/11/18 13:51 Freq: Status: Active Protocol: Document 07/16/18 11:15 DCW (Rec: 07/16/18 12:00 DCW [id number]) OP-PT Subjective Patient Comments Patient Comments Pt reports that he is doing well today. PT-OP-D Balance Start: 07/11/18 13:51 Freq: Status: Active Protocol: Document 07/11/18 11:15 DCW (Rec: 07/11/18 14:11 DCW [id number]) OP-PT Balance Assessment Standing Balance Static Standing Balance Ability Good Dynamic Standing Balance Ability Fair Device Used SPC Balance Tests Garza Balance Test Garza Balance Test Score 49/56 Garza Impairment Rating 1 to 19% Impaired (Score 45-55 ) mCTSIB mCTSIB Position 1 Slight Sway mCTSIB Position 2 Mild Sway mCTSIB Position 3 Mild Sway mCTSIB Position 4 Fall Reaction Garza Balance Assessment Evaluation Sitting to Standing Ability Independent w/out Hands Unsupported Stance Safely- 2 minutes Sitting Unsupported, Feet on Floor Safely- 2 minutes Standing to Sitting Ability Safely, Minimal Hand Use Transfer Ability Safely, Minimal Hand Use Unsupported Stance- Eyes Closed Safely, 10 seconds Unsupported Stance- Eyes Open Independent, 1 minute Reaching Forward Standing Safely, 5 inches Pick- Up Object From Floor Independent/Safe Look Behind Shoulder - Standing Shifts Weight Unilateral Turning 360 Degrees Turns , < 4 secs Unsupported Stance, Alternating Feet on (I)- 8 Steps in 20 secs Stair Unsupported Tandem Stance Holds Tandem- 30 seconds Unilateral Leg Stance Lifts Leg/Unable to Hold Total Score Garza Total Score (out of 56 points) 49 Garza Impairment Rating 1 to 19% Impaired (Score 45-55 ) March Fall Scale Copyright Permission Joaquim ZUNIGA, Joaquim RM, Matias SJ. Development of a scale to identify the fall- prone patient. Can J Aging 1989;8;366-7. Rina March (2009). Preventing patient falls. (2nd ed). [place]: [place]. PT-OP-E Functional Tests Start: 07/11/18 13:51 Freq: Status: Active Protocol: Document 07/11/18 11:15 DCW (Rec: 07/11/18 14:11 DCW [id number]) Functional Tests Dynamic Gait Index (DGI) Score 15/24 DGI Impairment Rating 20 to <40% Impaired (Score 15- 19) PT-OP-M Strength Start: 07/11/18 13:51 Freq: Status: Active Protocol: Document 07/11/18 11:15 DCW (Rec: 07/11/18 14:11 DCW [id number]) Hip Strength Hip Manual Muscle Testing Right Flexion (L2) 4 Good Abduction 4+ Good+ Adduction 4 Good Left Flexion (L2) 4 Good Abduction 4+ Good+ Adduction 4 Good Knee Strength Knee Manual Muscle Testing Right Flexion (S2) 4+ Good+ Extension (L3) 4+ Good+ Left Flexion (S2) 4+ Good+ Extension (L3) 4+ Good+ Ankle/Foot Strength Ankle and Foot Manual Muscle Testing Right Dorsiflexion (L4) 4 Good Plantarflexion (S1) 4- Good- Left Dorsiflexion (L4) 3- Fair- Plantarflexion (S1) 3+ Fair+ PT-OP-Q Treatments Start: 07/11/18 13:51 Freq: Status: Active Protocol: Document 07/16/18 11:15 DCW (Rec: 07/16/18 12:00 DCW [id number]) Cardio Equipment Recumbent Stepper (Sci-Fit) Duration (Minutes) 5 Resistance 3 Seat Position 10 Gym Equipment Shuttle Balance Red Details Wide AGUSTÍN (EO/EC), Staggered Stance Green Details EO/EC, Head turns, Body turns Therapeutic Exercises Other Exercises Resisted Fwd/Retro walking Other Exercise Name Resisted Fwd/Retro Walking Resistance Yellow Equipment Used T-band Resisted Side-stepping Other Exercise Name Resisted Side-stepping Resistance Yellow Equipment Used T-band Neuro Re-Education Treatment Balance Activities Narrow AGUSTÍN Details Narrow AGUSTÍN vs Perturbations Surface [place] foam Tandem Stance Details Tandem stance in // bars Surface [place] Foam [place] Details [place] in // bars Heel-toe Ambulation Details Heel-toe walking in // bars SLS Details SLS in // bars PT-OP-T Assessment and Plan Start: 07/11/18 13:51 Freq: Status: Active Protocol: Document 07/16/18 11:15 DCW (Rec: 07/16/18 12:00 DCW [id number]) Physical Therapy Assessment Impairments Impairments Activity Tolerance Balance Gait Posture Sensation Strength Goals Four Impairment Dynamic Balance Snf Goal (LTG) Pt to score 20/24 on DGI LTG Duration 09/10/18 Three Impairment Drop foot Snf Goal (LTG) Pt to complete 2 MWT with no instances of drop foot LTG Duration 09/10/18 Two Impairment Activity participation Sack Filler Goal (LTG) Pt to return to working out safely at [email or web address] with no balance concerns LTG Duration 09/10/18 One Impairment Pt has been non-compliant with previous home exercise programs Short Term Goal (STG) Pt to be independent and compliant with appropriate HEP STG Duration 08/10/18 Assessment Summary Assessment Pt tolerated balance training well today, able to self- correct through body correction or grabbing rail all LOB. Physical Therapy Plan Frequency and Duration Frequency of Treatment 2x/Week Duration of Treatment 12 weeks Plan of Care Start Date 07/11/18 Plan of Care End Date 10/03/18 Therapeutic Interventions Therapeutic Interventions Aquatic Therapy Balance Training Gait Training Home Exercise Program Manual Therapy Neuromuscular Re-education Patient/Caregiver Education Self-Care/Home Management Soft Tissue Mobilization Therapeutic Activities Therapeutic Exercises Modalities Cold Pack/Ice Massage Hot Packs Next Visit Focus/Plan Next Note Type Treatment Note Next Visit Plan LE strengthening (particularly L ankle), balance training
--- NOTE | 2018-07-23 13:33 | PT.OTN ---
Current Diagnoses Other abnormalities of gait and mobility (07/23/18) Physical Therapy Treatment Note PT-OP-A Visit Information Start: 07/11/18 13:51 Freq: Status: Active Protocol: Document 07/23/18 11:15 DCW (Rec: 07/23/18 13:33 DC [id number]) Out-Patient Physical Therapy Visit Information Visit Information Visit Type Treatment Note Visit Start Time 11:15 Visit Stop Time 12:00 Total Visit Minutes 45 Visit Number 3 Number of PUNCH MACHINE OPERATOR Visits 0 Evaluation Information Evaluation Date 07/11/18 PT-OP-B Current Condition Start: 07/11/18 13:51 Freq: Status: Active Protocol: Document 07/11/18 11:15 DCW (Rec: 07/11/18 14:11 DCW [id number]) Current Condition History of Current Condition Onset Date Multi-year history Current Complaints Instability, core weakness, LE weakness, L drop foot, history of falls History of Current Condition Pt is an 82 year old male presenting with a multi-year history of imbalance, falls, and weakness. Pt has been seen at this facility multiple times previously, and admits that my biggest problem is that I have no self-discipline , and I never do what I'm supposed to do unless I'm coming in here. Admits that he has never developed any core strength, even though he knows that it would be a big help. 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 Pt notes that he had previously had drop foot in 2009 following chemo and radiation for prostate cancer, but it eventually went away on its own, and was never as bad as it is now. Pt also notes that he has neuropathy in both feet, but he believes that it has actually been improving, or at least it isn't bothering me as much. Prior Treatments and Tests Prior physical therapy sessions at this facility Treatment Goals Patient/Caregiver Goals Pt wants to improve his stability and core strength, and return to working out at [facility]. PT-OP-C Subjective Start: 07/11/18 13:51 Freq: Status: Active Protocol: Document 07/23/18 11:15 DCW (Rec: 07/23/18 13:33 DCW [id number]) OP-PT Subjective Patient Comments Patient Comments Pt admits that he feels lousy today, and i feel unstable on my feet. PT-OP-D Balance Start: 07/11/18 13:51 Freq: Status: Active Protocol: Document 07/11/18 11:15 DCW (Rec: 07/11/18 14:11 DCW [id number]) OP-PT Balance Assessment Standing Balance Static Standing Balance Ability Good Dynamic Standing Balance Ability Fair Device Used SPC Balance Tests Garza Balance Test Garza Balance Test Score 49/56 Garza Impairment Rating 1 to 19% Impaired (Score 45-55 ) mCTSIB mCTSIB Position 1 Slight Sway mCTSIB Position 2 Mild Sway mCTSIB Position 3 Mild Sway mCTSIB Position 4 Fall Reaction Garza Balance Assessment Evaluation Sitting to Standing Ability Independent w/out Hands Unsupported Stance Safely- 2 minutes Sitting Unsupported, Feet on Floor Safely- 2 minutes Standing to Sitting Ability Safely, Minimal Hand Use Transfer Ability Safely, Minimal Hand Use Unsupported Stance- Eyes Closed Safely, 10 seconds Unsupported Stance- Eyes Open Independent, 1 minute Reaching Forward Standing Safely, 5 inches Pick- Up Object From Floor Independent/Safe Look Behind Shoulder - Standing Shifts Weight Unilateral Turning 360 Degrees Turns , < 4 secs Unsupported Stance, Alternating Feet on (I)- 8 Steps in 20 secs Stair Unsupported Tandem Stance Holds Tandem- 30 seconds Unilateral Leg Stance Lifts Leg/Unable to Hold Total Score Garza Total Score (out of 56 points) 49 Garza Impairment Rating 1 to 19% Impaired (Score 45-55 ) March Fall Scale Copyright Permission Joaquim ZUNIGA, Joaquim RM, Matias SJ. Development of a scale to identify the fall- prone patient. Can J Aging 1989;8;366-7. Rina March (2009). Preventing patient falls. (2nd ed). [place]: [place]. PT-OP-E Functional Tests Start: 07/11/18 13:51 Freq: Status: Active Protocol: Document 07/11/18 11:15 DCW (Rec: 07/11/18 14:11 DCW [id number]) Functional Tests Dynamic Gait Index (DGI) Score 15/24 DGI Impairment Rating 20 to <40% Impaired (Score 15- 19) PT-OP-M Strength Start: 07/11/18 13:51 Freq: Status: Active Protocol: Document 07/11/18 11:15 DCW (Rec: 07/11/18 14:11 DCW [id number]) Hip Strength Hip Manual Muscle Testing Right Flexion (L2) 4 Good Abduction 4+ Good+ Adduction 4 Good Left Flexion (L2) 4 Good Abduction 4+ Good+ Adduction 4 Good Knee Strength Knee Manual Muscle Testing Right Flexion (S2) 4+ Good+ Extension (L3) 4+ Good+ Left Flexion (S2) 4+ Good+ Extension (L3) 4+ Good+ Ankle/Foot Strength Ankle and Foot Manual Muscle Testing Right Dorsiflexion (L4) 4 Good Plantarflexion (S1) 4- Good- Left Dorsiflexion (L4) 3- Fair- Plantarflexion (S1) 3+ Fair+ PT-OP-Q Treatments Start: 07/11/18 13:51 Freq: Status: Active Protocol: Document 07/23/18 11:15 DCW (Rec: 07/23/18 13:33 DCW [id number]) Cardio Equipment Recumbent Stepper (Sci-Fit) Duration (Minutes) 6 Resistance 3 Seat Position 10 Gym Equipment Shuttle Balance Red Details Wide AGUSTÍN (EO/EC), Staggered Stance Therapeutic Exercises Other Exercises Resisted Fwd/Retro walking Other Exercise Name Resisted Fwd/Retro Walking Resistance Yellow Equipment Used T-band Resisted Side-stepping Other Exercise Name Resisted Side-stepping Resistance Yellow Equipment Used T-band Neuro Re-Education Treatment Balance Activities Tandem Stance Details Tandem stance in // bars Surface Blue Foam Heel-toe Ambulation Details Heel-toe walking in // bars Comments bending to place balls on cones SLS Details SLS in // bars PT-OP-T Assessment and Plan Start: 07/11/18 13:51 Freq: Status: Active Protocol: Document 07/23/18 11:15 DCW (Rec: 07/23/18 13:33 DCW [id number]) Physical Therapy Assessment Impairments Impairments Activity Tolerance Balance Gait Posture Sensation Strength Goals Four Impairment Dynamic Balance Mcc Goal (LTG) Pt to score 20/24 on DGI LTG Duration 09/10/18 Three Impairment Drop foot Hydrogen Treater Goal (LTG) Pt to complete 2 MWT with no instances of drop foot LTG Duration 09/10/18 Two Impairment Activity participation Hydrogen Treater Goal (LTG) Pt to return to working out safely at [employer] with no balance concerns LTG Duration 09/10/18 One Impairment Pt has been non-compliant with previous home exercise programs Short Term Goal (STG) Pt to be independent and compliant with appropriate HEP STG Duration 08/10/18 Assessment Summary Assessment Despite pt complaints of feeling lousy and unstable, pt did well today, although struggled with bending with tandem stance. Physical Therapy Plan Frequency and Duration Frequency of Treatment 2x/Week Duration of Treatment 12 weeks Plan of Care Start Date 07/11/18 Plan of Care End Date 10/03/18 Therapeutic Interventions Therapeutic Interventions Aquatic Therapy Balance Training Gait Training Home Exercise Program Manual Therapy Neuromuscular Re-education Patient/Caregiver Education Self-Care/Home Management Soft Tissue Mobilization Therapeutic Activities Therapeutic Exercises Modalities Cold Pack/Ice Massage Hot Packs Next Visit Focus/Plan Next Note Type Treatment Note Next Visit Plan LE strengthening (particularly L ankle), balance training
--- NOTE | 2018-07-30 15:08 | PT.OTN ---
Current Diagnoses Other abnormalities of gait and mobility (07/30/18) Physical Therapy Treatment Note PT-OP-A Visit Information Start: 07/11/18 13:51 Freq: Status: Active Protocol: Document 07/30/18 12:00 GGD (Rec: 07/30/18 15:08 GGD [id number]) Out-Patient Physical Therapy Visit Information Visit Information Visit Type Treatment Note Visit Start Time 12:00 Visit Stop Time 12:43 Total Visit Minutes 43 Visit Number 4 Number of DECK LID FITTER Visits 1 Evaluation Information Evaluation Date 07/11/18 PT-OP-B Current Condition Start: 07/11/18 13:51 Freq: Status: Active Protocol: Document 07/11/18 11:15 DCW (Rec: 07/11/18 14:11 DCW [id number]) Current Condition History of Current Condition Onset Date Multi-year history Current Complaints Instability, core weakness, LE weakness, L drop foot, history of falls History of Current Condition Pt is an 82 year old male presenting with a multi-year history of imbalance, falls, and weakness. Pt has been seen at this facility multiple times previously, and admits that my biggest problem is that I have no self-discipline , and I never do what I'm supposed to do unless I'm coming in here. Admits that he has never developed any core strength, even though he knows that it would be a big help. 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 Pt notes that he had previously had drop foot in 2009 following chemo and radiation for prostate cancer, but it eventually went away on its own, and was never as bad as it is now. Pt also notes that he has neuropathy in both feet, but he believes that it has actually been improving, or at least it isn't bothering me as much. Prior Treatments and Tests Prior physical therapy sessions at this facility Treatment Goals Patient/Caregiver Goals Pt wants to improve his stability and core strength, and return to working out at [facility]. PT-OP-C Subjective Start: 07/11/18 13:51 Freq: Status: Active Protocol: Document 07/30/18 12:00 GGD (Rec: 07/30/18 15:08 GGD [id number]) OP-PT Subjective Patient Comments Patient Comments Pt states he was sick and doesn't have as much energy today. PT-OP-D Balance Start: 07/11/18 13:51 Freq: Status: Active Protocol: Document 07/11/18 11:15 DCW (Rec: 07/11/18 14:11 DCW [id number]) OP-PT Balance Assessment Standing Balance Static Standing Balance Ability Good Dynamic Standing Balance Ability Fair Device Used SPC Balance Tests Garza Balance Test Garza Balance Test Score 49/56 Garza Impairment Rating 1 to 19% Impaired (Score 45-55 ) mCTSIB mCTSIB Position 1 Slight Sway mCTSIB Position 2 Mild Sway mCTSIB Position 3 Mild Sway mCTSIB Position 4 Fall Reaction Garza Balance Assessment Evaluation Sitting to Standing Ability Independent w/out Hands Unsupported Stance Safely- 2 minutes Sitting Unsupported, Feet on Floor Safely- 2 minutes Standing to Sitting Ability Safely, Minimal Hand Use Transfer Ability Safely, Minimal Hand Use Unsupported Stance- Eyes Closed Safely, 10 seconds Unsupported Stance- Eyes Open Independent, 1 minute Reaching Forward Standing Safely, 5 inches Pick- Up Object From Floor Independent/Safe Look Behind Shoulder - Standing Shifts Weight Unilateral Turning 360 Degrees Turns , < 4 secs Unsupported Stance, Alternating Feet on (I)- 8 Steps in 20 secs Stair Unsupported Tandem Stance Holds Tandem- 30 seconds Unilateral Leg Stance Lifts Leg/Unable to Hold Total Score Garza Total Score (out of 56 points) 49 Garza Impairment Rating 1 to 19% Impaired (Score 45-55 ) March Fall Scale Copyright Permission Joaquim ZUNIGA, Joaquim RM, Matias SJ. Development of a scale to identify the fall- prone patient. Can J Aging 1989;8;366-7. Rina March (2009). Preventing patient falls. (2nd ed). [place]: [place]. PT-OP-E Functional Tests Start: 07/11/18 13:51 Freq: Status: Active Protocol: Document 07/11/18 11:15 DCW (Rec: 07/11/18 14:11 DCW [id number]) Functional Tests Dynamic Gait Index (DGI) Score 15/24 DGI Impairment Rating 20 to <40% Impaired (Score 15- 19) PT-OP-M Strength Start: 07/11/18 13:51 Freq: Status: Active Protocol: Document 07/11/18 11:15 DCW (Rec: 07/11/18 14:11 DCW [id number]) Hip Strength Hip Manual Muscle Testing Right Flexion (L2) 4 Good Abduction 4+ Good+ Adduction 4 Good Left Flexion (L2) 4 Good Abduction 4+ Good+ Adduction 4 Good Knee Strength Knee Manual Muscle Testing Right Flexion (S2) 4+ Good+ Extension (L3) 4+ Good+ Left Flexion (S2) 4+ Good+ Extension (L3) 4+ Good+ Ankle/Foot Strength Ankle and Foot Manual Muscle Testing Right Dorsiflexion (L4) 4 Good Plantarflexion (S1) 4- Good- Left Dorsiflexion (L4) 3- Fair- Plantarflexion (S1) 3+ Fair+ PT-OP-Q Treatments Start: 07/11/18 13:51 Freq: Status: Active Protocol: Document 07/30/18 12:00 GGD (Rec: 07/30/18 15:08 GGD [email or web address]) Cardio Equipment Recumbent Stepper (Sci-Fit) Duration (Minutes) 6 Resistance 3 Seat Position 10 Gym Equipment Shuttle Balance Red Details Wide AGUSTÍN (EO/EC), Staggered Stance Therapeutic Exercises Other Exercises Resisted Fwd/Retro walking Other Exercise Name Resisted Fwd/Retro Walking Resistance Yellow Equipment Used T-band Resisted Side-stepping Other Exercise Name Resisted Side-stepping Resistance Yellow Equipment Used T-band Neuro Re-Education Treatment Balance Activities 1 Details balance board Comments forward and backward weight shift. Tandem Stance Details Tandem stance in // bars Surface Blue Foam Heel-toe Ambulation Details Heel-toe walking Comments bending to place balls on cones SLS Details SLS in // bars PT-OP-T Assessment and Plan Start: 07/11/18 13:51 Freq: Status: Active Protocol: Document 07/30/18 12:00 GGD (Rec: 07/30/18 15:08 GGD [email or web address]) Physical Therapy Assessment Assessment Summary Assessment Pt improving with balance. He did need cues to limit UE support for LOB and to use body corrections. He had difficulty using only ankle for weight shift on balance board. Physical Therapy Plan Frequency and Duration Frequency of Treatment 2x/Week Duration of Treatment 12 weeks Plan of Care Start Date 07/11/18 Plan of Care End Date 10/03/18 Next Visit Focus/Plan Next Note Type Treatment Note Next Visit Plan LE strengthening (particularly L ankle), balance training
--- NOTE | 2018-08-02 11:16 | PT.OTN ---
Current Diagnoses Other abnormalities of gait and mobility (08/02/18) Physical Therapy Treatment Note PT-OP-A Visit Information Start: 07/11/18 13:51 Freq: Status: Active Protocol: Document 08/02/18 10:30 DCW (Rec: 08/02/18 11:16 DCW [id number]) Out-Patient Physical Therapy Visit Information Visit Information Visit Type Treatment Note Visit Start Time 10:30 Visit Stop Time 11:15 Total Visit Minutes 45 Visit Number 5 Number of ASSISTANT LIBRARIAN Visits 0 Evaluation Information Evaluation Date 07/11/18 PT-OP-B Current Condition Start: 07/11/18 13:51 Freq: Status: Active Protocol: Document 07/11/18 11:15 DCW (Rec: 07/11/18 14:11 DCW [id number]) Current Condition History of Current Condition Onset Date Multi-year history Current Complaints Instability, core weakness, LE weakness, L drop foot, history of falls History of Current Condition Pt is an 82 year old male presenting with a multi-year history of imbalance, falls, and weakness. Pt has been seen at this facility multiple times previously, and admits that my biggest problem is that I have no self-discipline , and I never do what I'm supposed to do unless I'm coming in here. Admits that he has never developed any core strength, even though he knows that it would be a big help. 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 Pt notes that he had previously had drop foot in 2009 following chemo and radiation for prostate cancer, but it eventually went away on its own, and was never as bad as it is now. Pt also notes that he has neuropathy in both feet, but he believes that it has actually been improving, or at least it isn't bothering me as much. Prior Treatments and Tests Prior physical therapy sessions at this facility Treatment Goals Patient/Caregiver Goals Pt wants to improve his stability and core strength, and return to working out at [facility]. PT-OP-C Subjective Start: 07/11/18 13:51 Freq: Status: Active Protocol: Document 08/02/18 10:30 DCW (Rec: 08/02/18 11:16 DCW [id number]) OP-PT Subjective Patient Comments Patient Comments Pt reports that he is still not feeling great today. PT-OP-D Balance Start: 07/11/18 13:51 Freq: Status: Active Protocol: Document 07/11/18 11:15 DCW (Rec: 07/11/18 14:11 DCW [id number]) OP-PT Balance Assessment Standing Balance Static Standing Balance Ability Good Dynamic Standing Balance Ability Fair Device Used SPC Balance Tests Garza Balance Test Garza Balance Test Score 49/56 Garza Impairment Rating 1 to 19% Impaired (Score 45-55 ) mCTSIB mCTSIB Position 1 Slight Sway mCTSIB Position 2 Mild Sway mCTSIB Position 3 Mild Sway mCTSIB Position 4 Fall Reaction Garza Balance Assessment Evaluation Sitting to Standing Ability Independent w/out Hands Unsupported Stance Safely- 2 minutes Sitting Unsupported, Feet on Floor Safely- 2 minutes Standing to Sitting Ability Safely, Minimal Hand Use Transfer Ability Safely, Minimal Hand Use Unsupported Stance- Eyes Closed Safely, 10 seconds Unsupported Stance- Eyes Open Independent, 1 minute Reaching Forward Standing Safely, 5 inches Pick- Up Object From Floor Independent/Safe Look Behind Shoulder - Standing Shifts Weight Unilateral Turning 360 Degrees Turns , < 4 secs Unsupported Stance, Alternating Feet on (I)- 8 Steps in 20 secs Stair Unsupported Tandem Stance Holds Tandem- 30 seconds Unilateral Leg Stance Lifts Leg/Unable to Hold Total Score Garza Total Score (out of 56 points) 49 Garza Impairment Rating 1 to 19% Impaired (Score 45-55 ) March Fall Scale Copyright Permission Joaquim ZUNIGA, Joaquim RM, Matias SJ. Development of a scale to identify the fall- prone patient. Can J Aging 1989;8;366-7. Rina March (2009). Preventing patient falls. (2nd ed). [place]: [place]. PT-OP-E Functional Tests Start: 07/11/18 13:51 Freq: Status: Active Protocol: Document 07/11/18 11:15 DCW (Rec: 07/11/18 14:11 DCW [id number]) Functional Tests Dynamic Gait Index (DGI) Score 15/24 DGI Impairment Rating 20 to <40% Impaired (Score 15- 19) PT-OP-M Strength Start: 07/11/18 13:51 Freq: Status: Active Protocol: Document 07/11/18 11:15 DCW (Rec: 07/11/18 14:11 DCW [id number]) Hip Strength Hip Manual Muscle Testing Right Flexion (L2) 4 Good Abduction 4+ Good+ Adduction 4 Good Left Flexion (L2) 4 Good Abduction 4+ Good+ Adduction 4 Good Knee Strength Knee Manual Muscle Testing Right Flexion (S2) 4+ Good+ Extension (L3) 4+ Good+ Left Flexion (S2) 4+ Good+ Extension (L3) 4+ Good+ Ankle/Foot Strength Ankle and Foot Manual Muscle Testing Right Dorsiflexion (L4) 4 Good Plantarflexion (S1) 4- Good- Left Dorsiflexion (L4) 3- Fair- Plantarflexion (S1) 3+ Fair+ PT-OP-Q Treatments Start: 07/11/18 13:51 Freq: Status: Active Protocol: Document 08/02/18 10:30 DCW (Rec: 08/02/18 11:16 DCW [id number]) Cardio Equipment Recumbent Stepper (Sci-Fit) Duration (Minutes) 6 Resistance 3 Seat Position 10 Gym Equipment Shuttle Balance Red Details Wide AGUSTÍN (EO/EC), Staggered Stance Therapeutic Exercises Other Exercises Resisted Fwd/Retro walking Other Exercise Name Resisted Fwd/Retro Walking Resistance Green Equipment Used T-band Resisted Side-stepping Other Exercise Name Resisted Side-stepping Resistance Green Equipment Used T-band Neuro Re-Education Treatment Balance Activities Heel-toe Ambulation Details Heel-toe walking Comments fwd/bkwd SLS Details SLS in // bars PT-OP-T Assessment and Plan Start: 07/11/18 13:51 Freq: Status: Active Protocol: Document 08/02/18 10:30 DCW (Rec: 08/02/18 11:16 DCW [id number]) Physical Therapy Assessment Impairments Impairments Activity Tolerance Balance Gait Posture Sensation Strength Goals Four Impairment Dynamic Balance Halfway Goal (LTG) Pt to score 20/24 on DGI LTG Duration 09/10/18 Three Impairment Drop foot [employer] Attendant Goal (LTG) Pt to complete 2 MWT with no instances of drop foot LTG Duration 09/10/18 Two Impairment Activity participation [employer] Parking Attendant Goal (LTG) Pt to return to working out safely at [employer] with no balance concerns LTG Duration 09/10/18 One Impairment Pt has been non-compliant with previous home exercise programs Short Term Goal (STG) Pt to be independent and compliant with appropriate HEP STG Duration 08/10/18 Assessment Summary Assessment Pt making mild improvements, planning to make more appointments Physical Therapy Plan Frequency and Duration Frequency of Treatment 2x/Week Duration of Treatment 12 weeks Plan of Care Start Date 07/11/18 Plan of Care End Date 10/03/18 Therapeutic Interventions Therapeutic Interventions Aquatic Therapy Balance Training Gait Training Home Exercise Program Manual Therapy Neuromuscular Re-education Patient/Caregiver Education Self-Care/Home Management Soft Tissue Mobilization Therapeutic Activities Therapeutic Exercises Modalities Cold Pack/Ice Massage Hot Packs Next Visit Focus/Plan Next Note Type Treatment Note Next Visit Plan LE strengthening (particularly L ankle), balance training
--- NOTE | 2018-08-06 15:00 | PT.OTN ---
Current Diagnoses Other abnormalities of gait and mobility (08/06/18) Physical Therapy Treatment Note PT-OP-A Visit Information Start: 07/11/18 13:51 Freq: Status: Active Protocol: Document 08/06/18 10:30 GGD (Rec: 08/06/18 15:00 GGD [id number]) Out-Patient Physical Therapy Visit Information Visit Information Visit Type Treatment Note Visit Start Time 10:30 Visit Stop Time 11:13 Total Visit Minutes 43 Visit Number 6 Number of PAEDIATRIC THORACIC PHYSICIAN Visits 1 Evaluation Information Evaluation Date 07/11/18 PT-OP-B Current Condition Start: 07/11/18 13:51 Freq: Status: Active Protocol: Document 07/11/18 11:15 DCW (Rec: 07/11/18 14:11 DCW [id number]) Current Condition History of Current Condition Onset Date Multi-year history Current Complaints Instability, core weakness, LE weakness, L drop foot, history of falls History of Current Condition Pt is an 82 year old male presenting with a multi-year history of imbalance, falls, and weakness. Pt has been seen at this facility multiple times previously, and admits that my biggest problem is that I have no self-discipline , and I never do what I'm supposed to do unless I'm coming in here. Admits that he has never developed any core strength, even though he knows that it would be a big help. 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 Pt notes that he had previously had drop foot in 2009 following chemo and radiation for prostate cancer, but it eventually went away on its own, and was never as bad as it is now. Pt also notes that he has neuropathy in both feet, but he believes that it has actually been improving, or at least it isn't bothering me as much. Prior Treatments and Tests Prior physical therapy sessions at this facility Treatment Goals Patient/Caregiver Goals Pt wants to improve his stability and core strength, and return to working out at [facility]. PT-OP-C Subjective Start: 07/11/18 13:51 Freq: Status: Active Protocol: Document 08/06/18 10:30 GGD (Rec: 08/06/18 15:00 GGD [email or web address]) OP-PT Subjective Patient Comments Patient Comments Pt states he stilling not feeling good. PT-OP-D Balance Start: 07/11/18 13:51 Freq: Status: Active Protocol: Document 07/11/18 11:15 DCW (Rec: 07/11/18 14:11 DCW [id number]) OP-PT Balance Assessment Standing Balance Static Standing Balance Ability Good Dynamic Standing Balance Ability Fair Device Used SPC Balance Tests Garza Balance Test Garza Balance Test Score 49/56 Garza Impairment Rating 1 to 19% Impaired (Score 45-55 ) mCTSIB mCTSIB Position 1 Slight Sway mCTSIB Position 2 Mild Sway mCTSIB Position 3 Mild Sway mCTSIB Position 4 Fall Reaction Garza Balance Assessment Evaluation Sitting to Standing Ability Independent w/out Hands Unsupported Stance Safely- 2 minutes Sitting Unsupported, Feet on Floor Safely- 2 minutes Standing to Sitting Ability Safely, Minimal Hand Use Transfer Ability Safely, Minimal Hand Use Unsupported Stance- Eyes Closed Safely, 10 seconds Unsupported Stance- Eyes Open Independent, 1 minute Reaching Forward Standing Safely, 5 inches Pick- Up Object From Floor Independent/Safe Look Behind Shoulder - Standing Shifts Weight Unilateral Turning 360 Degrees Turns , < 4 secs Unsupported Stance, Alternating Feet on (I)- 8 Steps in 20 secs Stair Unsupported Tandem Stance Holds Tandem- 30 seconds Unilateral Leg Stance Lifts Leg/Unable to Hold Total Score Garza Total Score (out of 56 points) 49 Garza Impairment Rating 1 to 19% Impaired (Score 45-55 ) March Fall Scale Copyright Permission Joaquim ZUNIGA, Joaquim RM, Matias SJ. Development of a scale to identify the fall- prone patient. Can J Aging 1989;8;366-7. Rina March (2009). Preventing patient falls. (2nd ed). [place]: [place]. PT-OP-E Functional Tests Start: 07/11/18 13:51 Freq: Status: Active Protocol: Document 07/11/18 11:15 DCW (Rec: 07/11/18 14:11 DCW [id number]) Functional Tests Dynamic Gait Index (DGI) Score 15/24 DGI Impairment Rating 20 to <40% Impaired (Score 15- 19) PT-OP-M Strength Start: 07/11/18 13:51 Freq: Status: Active Protocol: Document 07/11/18 11:15 DCW (Rec: 07/11/18 14:11 DCW [id number]) Hip Strength Hip Manual Muscle Testing Right Flexion (L2) 4 Good Abduction 4+ Good+ Adduction 4 Good Left Flexion (L2) 4 Good Abduction 4+ Good+ Adduction 4 Good Knee Strength Knee Manual Muscle Testing Right Flexion (S2) 4+ Good+ Extension (L3) 4+ Good+ Left Flexion (S2) 4+ Good+ Extension (L3) 4+ Good+ Ankle/Foot Strength Ankle and Foot Manual Muscle Testing Right Dorsiflexion (L4) 4 Good Plantarflexion (S1) 4- Good- Left Dorsiflexion (L4) 3- Fair- Plantarflexion (S1) 3+ Fair+ PT-OP-Q Treatments Start: 07/11/18 13:51 Freq: Status: Active Protocol: Document 08/06/18 10:30 GGD (Rec: 08/06/18 15:00 GGD [email or web address]) Cardio Equipment Recumbent Stepper (Sci-Fit) Duration (Minutes) 6 Resistance 3 Seat Position 10 Gym Equipment Shuttle Balance Red Details Wide AGUSTÍN (EO/EC), Staggered Stance Therapeutic Exercises Other Exercises Resisted Fwd/Retro walking Other Exercise Name Resisted Fwd/Retro Walking Resistance Green Equipment Used T-band Resisted Side-stepping Other Exercise Name Resisted Side-stepping Resistance Green Equipment Used T-band Neuro Re-Education Treatment Balance Activities Heel-toe Ambulation Details Heel-toe walking Comments fwd/bkwd SLS Details SLS in // bars Comments firm and green foam, E/O and head turns. PT-OP-T Assessment and Plan Start: 07/11/18 13:51 Freq: Status: Active Protocol: Document 08/06/18 10:30 GGD (Rec: 08/06/18 15:00 GGD [email or web address]) Physical Therapy Assessment Assessment Summary Assessment Pt able to progress balance. He did need increase in UE support with heel toe gait. Physical Therapy Plan Frequency and Duration Frequency of Treatment 2x/Week Duration of Treatment 12 weeks Plan of Care Start Date 07/11/18 Plan of Care End Date 10/03/18 Next Visit Focus/Plan Next Note Type Treatment Note Next Visit Plan LE strengthening (particularly L ankle), balance training
--- NOTE | 2018-08-08 11:15 | PT.OTN ---
Current Diagnoses Other abnormalities of gait and mobility (08/08/18) Physical Therapy Treatment Note PT-OP-A Visit Information Start: 07/11/18 13:51 Freq: Status: Active Protocol: Document 08/08/18 11:15 RCC (Rec: 08/09/18 17:12 [facility] [email or web address]) Out-Patient Physical Therapy Visit Information Visit Information Visit Type Treatment Note Visit Start Time 10:30 Visit Stop Time 11:15 Total Visit Minutes 45 Visit Number 7 Number of DOCTORATE OF CHIROPRACTIC Visits 0 Evaluation Information Evaluation Date 07/11/18 PT-OP-B Current Condition Start: 07/11/18 13:51 Freq: Status: Active Protocol: Document 07/11/18 11:15 DCW (Rec: 07/11/18 14:11 DCW [id number]) Current Condition History of Current Condition Onset Date Multi-year history Current Complaints Instability, core weakness, LE weakness, L drop foot, history of falls History of Current Condition Pt is an 82 year old male presenting with a multi-year history of imbalance, falls, and weakness. Pt has been seen at this facility multiple times previously, and admits that my biggest problem is that I have no self-discipline , and I never do what I'm supposed to do unless I'm coming in here. Admits that he has never developed any core strength, even though he knows that it would be a big help. 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 Pt notes that he had previously had drop foot in 2009 following chemo and radiation for prostate cancer, but it eventually went away on its own, and was never as bad as it is now. Pt also notes that he has neuropathy in both feet, but he believes that it has actually been improving, or at least it isn't bothering me as much. Prior Treatments and Tests Prior physical therapy sessions at this facility Treatment Goals Patient/Caregiver Goals Pt wants to improve his stability and core strength, and return to working out at [facility]. PT-OP-C Subjective Start: 07/11/18 13:51 Freq: Status: Active Protocol: Document 08/08/18 11:15 RCC (Rec: 08/09/18 17:12 [facility] [email or web address]) OP-PT Subjective Patient Comments Patient Comments Pt is feeling a little better, he has had some more energy since this morning. PT-OP-D Balance Start: 07/11/18 13:51 Freq: Status: Active Protocol: Document 07/11/18 11:15 DCW (Rec: 07/11/18 14:11 DCW [id number]) OP-PT Balance Assessment Standing Balance Static Standing Balance Ability Good Dynamic Standing Balance Ability Fair Device Used SPC Balance Tests Garza Balance Test Garza Balance Test Score 49/56 Garza Impairment Rating 1 to 19% Impaired (Score 45-55 ) mCTSIB mCTSIB Position 1 Slight Sway mCTSIB Position 2 Mild Sway mCTSIB Position 3 Mild Sway mCTSIB Position 4 Fall Reaction Garza Balance Assessment Evaluation Sitting to Standing Ability Independent w/out Hands Unsupported Stance Safely- 2 minutes Sitting Unsupported, Feet on Floor Safely- 2 minutes Standing to Sitting Ability Safely, Minimal Hand Use Transfer Ability Safely, Minimal Hand Use Unsupported Stance- Eyes Closed Safely, 10 seconds Unsupported Stance- Eyes Open Independent, 1 minute Reaching Forward Standing Safely, 5 inches Pick- Up Object From Floor Independent/Safe Look Behind Shoulder - Standing Shifts Weight Unilateral Turning 360 Degrees Turns , < 4 secs Unsupported Stance, Alternating Feet on (I)- 8 Steps in 20 secs Stair Unsupported Tandem Stance Holds Tandem- 30 seconds Unilateral Leg Stance Lifts Leg/Unable to Hold Total Score Garza Total Score (out of 56 points) 49 Garza Impairment Rating 1 to 19% Impaired (Score 45-55 ) March Fall Scale Copyright Permission Joaquim ZUNIGA, Joaquim RM, Matias SJ. Development of a scale to identify the fall- prone patient. Can J Aging 1989;8;366-7. Rina March (2009). Preventing patient falls. (2nd ed). [place]: [place]. PT-OP-E Functional Tests Start: 07/11/18 13:51 Freq: Status: Active Protocol: Document 07/11/18 11:15 DCW (Rec: 07/11/18 14:11 DCW [id number]) Functional Tests Dynamic Gait Index (DGI) Score 15/24 DGI Impairment Rating 20 to <40% Impaired (Score 15- 19) PT-OP-M Strength Start: 07/11/18 13:51 Freq: Status: Active Protocol: Document 07/11/18 11:15 DCW (Rec: 07/11/18 14:11 DCW [id number]) Hip Strength Hip Manual Muscle Testing Right Flexion (L2) 4 Good Abduction 4+ Good+ Adduction 4 Good Left Flexion (L2) 4 Good Abduction 4+ Good+ Adduction 4 Good Knee Strength Knee Manual Muscle Testing Right Flexion (S2) 4+ Good+ Extension (L3) 4+ Good+ Left Flexion (S2) 4+ Good+ Extension (L3) 4+ Good+ Ankle/Foot Strength Ankle and Foot Manual Muscle Testing Right Dorsiflexion (L4) 4 Good Plantarflexion (S1) 4- Good- Left Dorsiflexion (L4) 3- Fair- Plantarflexion (S1) 3+ Fair+ PT-OP-Q Treatments Start: 07/11/18 13:51 Freq: Status: Active Protocol: Document 08/08/18 11:15 RCC (Rec: 08/09/18 17:12 [facility] [email or web address]) Cardio Equipment Recumbent Stepper (Sci-Fit) Duration (Minutes) 6 Resistance 3 Seat Position 10 Gym Equipment Shuttle Balance Red Details Wide AGUSTÍN (EO/EC), Staggered Stance Therapeutic Exercises Sitting Exercises ankle eversion Side left Resistance L2 Reps/Minutes 1x20 ankle DF Side left Resistance L2 Reps/Minutes 1x20 Neuro Re-Education Treatment Balance Activities Heel-toe Ambulation Details Heel-toe walking Comments fwd/bkwd SLS Details SLS in // bars Comments firm and green foam, E/O and head turns. PT-OP-T Assessment and Plan Start: 07/11/18 13:51 Freq: Status: Active Protocol: Document 08/08/18 11:15 RCC (Rec: 08/09/18 17:12 [facility] [email or web address]) Physical Therapy Assessment Assessment Summary Assessment Pt able to perform DF and eversion with L2 resistance today. He does demonstrated impaired L ankle AROM due to muscular weakness. Physical Therapy Plan Frequency and Duration Frequency of Treatment 2x/Week Duration of Treatment 12 weeks Plan of Care Start Date 07/11/18 Plan of Care End Date 10/03/18 Next Visit Focus/Plan Next Note Type Treatment Note Next Visit Plan balance and gait training as tolerated, review ankle DF and eversion strengthening.
--- NOTE | 2018-08-13 10:30 | PT.OTN ---
Current Diagnoses Other abnormalities of gait and mobility (08/13/18) Physical Therapy Treatment Note PT-OP-A Visit Information Start: 07/11/18 13:51 Freq: Status: Active Protocol: Document 08/13/18 10:25 GGD (Rec: 08/13/18 10:30 GGD [email or web address]) Out-Patient Physical Therapy Visit Information Visit Information Visit Type Treatment Note Visit Start Time 09:45 Visit Stop Time 10:25 Total Visit Minutes 40 Visit Number 8 Number of MERCHANDISE EXECUTIVE Visits 1 Evaluation Information Evaluation Date 07/11/18 PT-OP-B Current Condition Start: 07/11/18 13:51 Freq: Status: Active Protocol: Document 07/11/18 11:15 DCW (Rec: 07/11/18 14:11 DCW [id number]) Current Condition History of Current Condition Onset Date Multi-year history Current Complaints Instability, core weakness, LE weakness, L drop foot, history of falls History of Current Condition Pt is an 82 year old male presenting with a multi-year history of imbalance, falls, and weakness. Pt has been seen at this facility multiple times previously, and admits that my biggest problem is that I have no self-discipline , and I never do what I'm supposed to do unless I'm coming in here. Admits that he has never developed any core strength, even though he knows that it would be a big help. 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 Pt notes that he had previously had drop foot in 2009 following chemo and radiation for prostate cancer, but it eventually went away on its own, and was never as bad as it is now. Pt also notes that he has neuropathy in both feet, but he believes that it has actually been improving, or at least it isn't bothering me as much. Prior Treatments and Tests Prior physical therapy sessions at this facility Treatment Goals Patient/Caregiver Goals Pt wants to improve his stability and core strength, and return to working out at [facility]. PT-OP-C Subjective Start: 07/11/18 13:51 Freq: Status: Active Protocol: Document 08/13/18 10:25 GGD (Rec: 08/13/18 10:30 GGD [email or web address]) OP-PT Subjective Patient Comments Patient Comments Pt states he is very tired and feels his balance has been off for the last few days. PT-OP-D Balance Start: 07/11/18 13:51 Freq: Status: Active Protocol: Document 07/11/18 11:15 DCW (Rec: 07/11/18 14:11 DCW [id number]) OP-PT Balance Assessment Standing Balance Static Standing Balance Ability Good Dynamic Standing Balance Ability Fair Device Used SPC Balance Tests Garza Balance Test Garza Balance Test Score 49/56 Garza Impairment Rating 1 to 19% Impaired (Score 45-55 ) mCTSIB mCTSIB Position 1 Slight Sway mCTSIB Position 2 Mild Sway mCTSIB Position 3 Mild Sway mCTSIB Position 4 Fall Reaction Garza Balance Assessment Evaluation Sitting to Standing Ability Independent w/out Hands Unsupported Stance Safely- 2 minutes Sitting Unsupported, Feet on Floor Safely- 2 minutes Standing to Sitting Ability Safely, Minimal Hand Use Transfer Ability Safely, Minimal Hand Use Unsupported Stance- Eyes Closed Safely, 10 seconds Unsupported Stance- Eyes Open Independent, 1 minute Reaching Forward Standing Safely, 5 inches Pick- Up Object From Floor Independent/Safe Look Behind Shoulder - Standing Shifts Weight Unilateral Turning 360 Degrees Turns , < 4 secs Unsupported Stance, Alternating Feet on (I)- 8 Steps in 20 secs Stair Unsupported Tandem Stance Holds Tandem- 30 seconds Unilateral Leg Stance Lifts Leg/Unable to Hold Total Score Garza Total Score (out of 56 points) 49 Garza Impairment Rating 1 to 19% Impaired (Score 45-55 ) March Fall Scale Copyright Permission Joaquim ZUNIGA, Joaquim RM, Matias SJ. Development of a scale to identify the fall- prone patient. Can J Aging 1989;8;366-7. Rina March (2009). Preventing patient falls. (2nd ed). [place]: [place]. PT-OP-E Functional Tests Start: 07/11/18 13:51 Freq: Status: Active Protocol: Document 07/11/18 11:15 DCW (Rec: 07/11/18 14:11 DCW [id number]) Functional Tests Dynamic Gait Index (DGI) Score 15/24 DGI Impairment Rating 20 to <40% Impaired (Score 15- 19) PT-OP-M Strength Start: 07/11/18 13:51 Freq: Status: Active Protocol: Document 07/11/18 11:15 DCW (Rec: 07/11/18 14:11 DCW [id number]) Hip Strength Hip Manual Muscle Testing Right Flexion (L2) 4 Good Abduction 4+ Good+ Adduction 4 Good Left Flexion (L2) 4 Good Abduction 4+ Good+ Adduction 4 Good Knee Strength Knee Manual Muscle Testing Right Flexion (S2) 4+ Good+ Extension (L3) 4+ Good+ Left Flexion (S2) 4+ Good+ Extension (L3) 4+ Good+ Ankle/Foot Strength Ankle and Foot Manual Muscle Testing Right Dorsiflexion (L4) 4 Good Plantarflexion (S1) 4- Good- Left Dorsiflexion (L4) 3- Fair- Plantarflexion (S1) 3+ Fair+ PT-OP-Q Treatments Start: 07/11/18 13:51 Freq: Status: Active Protocol: Document 08/13/18 10:25 GGD (Rec: 08/13/18 10:30 GGD [email or web address]) Cardio Equipment Recumbent Stepper (Sci-Fit) Duration (Minutes) 6 Resistance 3 Seat Position 10 Gym Equipment Shuttle Balance Red Details Wide AGUSTÍN (EO/EC), Staggered Stance Therapeutic Exercises Sitting Exercises ankle eversion Side left Resistance L2 Reps/Minutes 1x20 ankle DF Side left Reps/Minutes 1x20 Other Exercises Resisted Fwd/Retro walking Other Exercise Name Resisted Fwd/Retro Walking Resistance Green Equipment Used T-band Resisted Side-stepping Other Exercise Name Resisted Side-stepping Resistance Green Equipment Used T-band Neuro Re-Education Treatment Balance Activities Heel-toe Ambulation Details Heel-toe walking Comments fwd/bkwd SLS Details SLS in // bars Comments firm and green foam, E/O and head turns. PT-OP-T Assessment and Plan Start: 07/11/18 13:51 Freq: Status: Active Protocol: Document 08/13/18 10:25 GGD (Rec: 08/13/18 10:30 GGD [email or web address]) Physical Therapy Assessment Assessment Summary Assessment Pt had increase in fatigued and need rest break with treatment. He increase in challenged with balance activities and increased UE support. Physical Therapy Plan Frequency and Duration Frequency of Treatment 2x/Week Duration of Treatment 12 weeks Plan of Care Start Date 07/11/18 Plan of Care End Date 10/03/18 Next Visit Focus/Plan Next Note Type Treatment Note Next Visit Plan balance and gait training as tolerated.
--- NOTE | 2018-08-15 13:01 | PT.OTN ---
Current Diagnoses Other abnormalities of gait and mobility (08/15/18) Physical Therapy Treatment Note PT-OP-A Visit Information Start: 07/11/18 13:51 Freq: Status: Active Protocol: Document 08/15/18 10:30 HH (Rec: 08/15/18 13:01 [email or web address]) Out-Patient Physical Therapy Visit Information Visit Information Visit Type Treatment Note Visit Start Time 10:30 Visit Stop Time 11:15 Total Visit Minutes 45 Visit Number 9 Number of VEHICLE LEASING AND RENTAL MANAGER Visits 1 PT-OP-B Current Condition Start: 07/11/18 13:51 Freq: Status: Active Protocol: Document 07/11/18 11:15 DCW (Rec: 07/11/18 14:11 DCW [id number]) Current Condition History of Current Condition Onset Date Multi-year history Current Complaints Instability, core weakness, LE weakness, L drop foot, history of falls History of Current Condition Pt is an 82 year old male presenting with a multi-year history of imbalance, falls, and weakness. Pt has been seen at this facility multiple times previously, and admits that my biggest problem is that I have no self-discipline , and I never do what I'm supposed to do unless I'm coming in here. Admits that he has never developed any core strength, even though he knows that it would be a big help. 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 Pt notes that he had previously had drop foot in 2009 following chemo and radiation for prostate cancer, but it eventually went away on its own, and was never as bad as it is now. Pt also notes that he has neuropathy in both feet, but he believes that it has actually been improving, or at least it isn't bothering me as much. Prior Treatments and Tests Prior physical therapy sessions at this facility Treatment Goals Patient/Caregiver Goals Pt wants to improve his stability and core strength, and return to working out at [facility]. PT-OP-C Subjective Start: 07/11/18 13:51 Freq: Status: Active Protocol: Document 08/15/18 10:30 HH (Rec: 08/15/18 13:01 [email or web address]) OP-PT Subjective Patient Comments Patient Comments Pt states he felt very tired on Sunday tx session but feel good today and motivated to try shuttle balance board again. Pt also states that he is compliant to HEP sometimes but prefer to exercise during tx session Patient Reported Progress Improving PT-OP-D Balance Start: 07/11/18 13:51 Freq: Status: Active Protocol: Document 07/11/18 11:15 DCW (Rec: 07/11/18 14:11 DCW [id number]) OP-PT Balance Assessment Standing Balance Static Standing Balance Ability Good Dynamic Standing Balance Ability Fair Device Used SPC Balance Tests Garza Balance Test Garza Balance Test Score 49/56 Garza Impairment Rating 1 to 19% Impaired (Score 45-55 ) mCTSIB mCTSIB Position 1 Slight Sway mCTSIB Position 2 Mild Sway mCTSIB Position 3 Mild Sway mCTSIB Position 4 Fall Reaction Garza Balance Assessment Evaluation Sitting to Standing Ability Independent w/out Hands Unsupported Stance Safely- 2 minutes Sitting Unsupported, Feet on Floor Safely- 2 minutes Standing to Sitting Ability Safely, Minimal Hand Use Transfer Ability Safely, Minimal Hand Use Unsupported Stance- Eyes Closed Safely, 10 seconds Unsupported Stance- Eyes Open Independent, 1 minute Reaching Forward Standing Safely, 5 inches Pick- Up Object From Floor Independent/Safe Look Behind Shoulder - Standing Shifts Weight Unilateral Turning 360 Degrees Turns , < 4 secs Unsupported Stance, Alternating Feet on (I)- 8 Steps in 20 secs Stair Unsupported Tandem Stance Holds Tandem- 30 seconds Unilateral Leg Stance Lifts Leg/Unable to Hold Total Score Garza Total Score (out of 56 points) 49 Garza Impairment Rating 1 to 19% Impaired (Score 45-55 ) March Fall Scale Copyright Permission Joaquim ZUNIGA, Joaquim RM, Matias SJ. Development of a scale to identify the fall- prone patient. Can J Aging 1989;8;366-7. Rina March (2009). Preventing patient falls. (2nd ed). [place]: [place]. PT-OP-E Functional Tests Start: 07/11/18 13:51 Freq: Status: Active Protocol: Document 07/11/18 11:15 DCW (Rec: 07/11/18 14:11 DCW [id number]) Functional Tests Dynamic Gait Index (DGI) Score 15/24 DGI Impairment Rating 20 to <40% Impaired (Score 15- 19) PT-OP-M Strength Start: 07/11/18 13:51 Freq: Status: Active Protocol: Document 07/11/18 11:15 DCW (Rec: 07/11/18 14:11 DCW [id number]) Hip Strength Hip Manual Muscle Testing Right Flexion (L2) 4 Good Abduction 4+ Good+ Adduction 4 Good Left Flexion (L2) 4 Good Abduction 4+ Good+ Adduction 4 Good Knee Strength Knee Manual Muscle Testing Right Flexion (S2) 4+ Good+ Extension (L3) 4+ Good+ Left Flexion (S2) 4+ Good+ Extension (L3) 4+ Good+ Ankle/Foot Strength Ankle and Foot Manual Muscle Testing Right Dorsiflexion (L4) 4 Good Plantarflexion (S1) 4- Good- Left Dorsiflexion (L4) 3- Fair- Plantarflexion (S1) 3+ Fair+ PT-OP-Q Treatments Start: 07/11/18 13:51 Freq: Status: Active Protocol: Document 08/15/18 10:30 HH (Rec: 08/15/18 13:01 [email or web address]) Gym Equipment Shuttle Balance Blue Reps/Duration 5 mins Comments 20s for head turn x 3sets 20 s with EO x 3 sets 20 s with EC x 3 sets with CGA Therapeutic Exercises Sitting Exercises scifi UE LE press Reps/Minutes 8 mins Standing Exercises 3 Standing Exercise Name wooden balance board Comments no UE support 2 Standing Exercise Name tandem stance Comments 20-25 s EO, 3s EC 1 Standing Exercise Name leah board stretch Side bilateral Reps/Minutes 4 mins PT-OP-T Assessment and Plan Start: 07/11/18 13:51 Freq: Status: Active Protocol: Document 08/15/18 10:30 HH (Rec: 08/15/18 13:01 [email or web address]) Physical Therapy Assessment Impairments Impairments Activity Tolerance Balance Gait Posture Sensation Strength Progress Towards Goals Progress Towards Goals Slow Progress due to Noncompliance Assessment Summary Assessment Pt presents to clinic with concerns of his current progression due to his increased fatigue during last tx session. Pt education today on rehab progression ( includes occasional regression and progression ) However, pt demonstrates increased tolerance for therex and balance activities. Pt is able to maintain tandem stance 20- 25s EO, 3s EC. Shuttle balance board 20 s with head turn, 20s EO and EC with 5 s. Pt cont presents predominantly dependent on vision feedback for balance. Cont POC to facilitate overall body awareness and balance training . Physical Therapy Plan Therapeutic Interventions Therapeutic Interventions Aquatic Therapy Balance Training Gait Training Home Exercise Program Manual Therapy Neuromuscular Re-education Patient/Caregiver Education Self-Care/Home Management Soft Tissue Mobilization Therapeutic Activities Therapeutic Exercises Next Visit Focus/Plan Next Note Type Treatment Note Next Visit Plan primarily EC balance training, dynamic balance training, step over training to facilitate L DF
--- NOTE | 2018-08-22 10:30 | PT.OTN ---
Current Diagnoses Other abnormalities of gait and mobility (08/22/18) Physical Therapy Treatment Note PT-OP-A Visit Information Start: 07/11/18 13:51 Freq: Status: Active Protocol: Document 08/22/18 09:45 DCW (Rec: 08/22/18 10:29 DCW [id number]) Out-Patient Physical Therapy Visit Information Visit Information Visit Type Treatment Note Visit Start Time 09:45 Visit Stop Time 10:30 Total Visit Minutes 45 Visit Number 10 Number of FAMILY NURSE Visits 0 Evaluation Information Evaluation Date 07/11/18 PT-OP-B Current Condition Start: 07/11/18 13:51 Freq: Status: Active Protocol: Document 07/11/18 11:15 DCW (Rec: 07/11/18 14:11 DCW [id number]) Current Condition History of Current Condition Onset Date Multi-year history Current Complaints Instability, core weakness, LE weakness, L drop foot, history of falls History of Current Condition Pt is an 82 year old male presenting with a multi-year history of imbalance, falls, and weakness. Pt has been seen at this facility multiple times previously, and admits that my biggest problem is that I have no self-discipline , and I never do what I'm supposed to do unless I'm coming in here. Admits that he has never developed any core strength, even though he knows that it would be a big help. 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 Pt notes that he had previously had drop foot in 2009 following chemo and radiation for prostate cancer, but it eventually went away on its own, and was never as bad as it is now. Pt also notes that he has neuropathy in both feet, but he believes that it has actually been improving, or at least it isn't bothering me as much. Prior Treatments and Tests Prior physical therapy sessions at this facility Treatment Goals Patient/Caregiver Goals Pt wants to improve his stability and core strength, and return to working out at [facility]. PT-OP-C Subjective Start: 07/11/18 13:51 Freq: Status: Active Protocol: Document 08/22/18 09:45 DCW (Rec: 08/22/18 10:29 DCW [id number]) OP-PT Subjective Patient Comments Patient Comments Pt reports his quads were so sore following his last visit, he was afraid they would give out on him, but he was happy because it is exactly the kind of workout I need. PT-OP-D Balance Start: 07/11/18 13:51 Freq: Status: Active Protocol: Document 07/11/18 11:15 DCW (Rec: 07/11/18 14:11 DCW [id number]) OP-PT Balance Assessment Standing Balance Static Standing Balance Ability Good Dynamic Standing Balance Ability Fair Device Used SPC Balance Tests Garza Balance Test Garza Balance Test Score 49/56 Garza Impairment Rating 1 to 19% Impaired (Score 45-55 ) mCTSIB mCTSIB Position 1 Slight Sway mCTSIB Position 2 Mild Sway mCTSIB Position 3 Mild Sway mCTSIB Position 4 Fall Reaction Garza Balance Assessment Evaluation Sitting to Standing Ability Independent w/out Hands Unsupported Stance Safely- 2 minutes Sitting Unsupported, Feet on Floor Safely- 2 minutes Standing to Sitting Ability Safely, Minimal Hand Use Transfer Ability Safely, Minimal Hand Use Unsupported Stance- Eyes Closed Safely, 10 seconds Unsupported Stance- Eyes Open Independent, 1 minute Reaching Forward Standing Safely, 5 inches Pick- Up Object From Floor Independent/Safe Look Behind Shoulder - Standing Shifts Weight Unilateral Turning 360 Degrees Turns , < 4 secs Unsupported Stance, Alternating Feet on (I)- 8 Steps in 20 secs Stair Unsupported Tandem Stance Holds Tandem- 30 seconds Unilateral Leg Stance Lifts Leg/Unable to Hold Total Score Garza Total Score (out of 56 points) 49 Garza Impairment Rating 1 to 19% Impaired (Score 45-55 ) March Fall Scale Copyright Permission Joaquim JM, Joaquim RM, Matias SJ. Development of a scale to identify the fall- prone patient. Can J Aging 1989;8;366-7. Rina March (2009). Preventing patient falls. (2nd ed). [place]: [place]. PT-OP-E Functional Tests Start: 07/11/18 13:51 Freq: Status: Active Protocol: Document 07/11/18 11:15 DCW (Rec: 07/11/18 14:11 DCW [id number]) Functional Tests Dynamic Gait Index (DGI) Score 15/24 DGI Impairment Rating 20 to <40% Impaired (Score 15- 19) PT-OP-M Strength Start: 07/11/18 13:51 Freq: Status: Active Protocol: Document 07/11/18 11:15 DCW (Rec: 07/11/18 14:11 DCW [id number]) Hip Strength Hip Manual Muscle Testing Right Flexion (L2) 4 Good Abduction 4+ Good+ Adduction 4 Good Left Flexion (L2) 4 Good Abduction 4+ Good+ Adduction 4 Good Knee Strength Knee Manual Muscle Testing Right Flexion (S2) 4+ Good+ Extension (L3) 4+ Good+ Left Flexion (S2) 4+ Good+ Extension (L3) 4+ Good+ Ankle/Foot Strength Ankle and Foot Manual Muscle Testing Right Dorsiflexion (L4) 4 Good Plantarflexion (S1) 4- Good- Left Dorsiflexion (L4) 3- Fair- Plantarflexion (S1) 3+ Fair+ PT-OP-Q Treatments Start: 07/11/18 13:51 Freq: Status: Active Protocol: Document 08/22/18 09:45 DCW (Rec: 08/22/18 10:29 DCW [id number]) Cardio Equipment Recumbent Stepper (Sci-Fit) Duration (Minutes) 6 Resistance 3 Seat Position 10 Gym Equipment Shuttle Recovery Bilateral Heel Raises Resistance 62# Shuttle Recovery Platform Stable Reps/Time 2x10 Bilateral Squats Resistance 125# Shuttle Recovery Platform Stable Reps/Time 2x10 Shuttle Balance Red Comments Wide AGUSTÍN (EO/EC), Staggered Stance, Ball toss at rebounde Therapeutic Exercises Standing Exercises Ankle Plantar flexion Standing Exercise Name Ankle PF Equipment Used EDDIE Reps/Minutes 2x40 1 Standing Exercise Name eddie board stretch Side bilateral Reps/Minutes x15 Other Exercises Resisted Fwd/Retro walking Other Exercise Name Resisted Fwd/Retro Walking Resistance Green Equipment Used T-band Resisted Side-stepping Other Exercise Name Resisted Side-stepping Resistance Green Equipment Used T-band Neuro Re-Education Treatment Balance Activities Tandem Stance Details Tandem stance @ rail Surface Firm SLS Details SLS Surface Firm PT-OP-T Assessment and Plan Start: 07/11/18 13:51 Freq: Status: Active Protocol: Document 08/22/18 09:45 DCW (Rec: 08/22/18 10:29 DCW [id number]) Physical Therapy Assessment Impairments Impairments Activity Tolerance Balance Gait Posture Sensation Strength Goals Four Impairment Dynamic Balance [facility] Goal (LTG) Pt to score 20/24 on DGI LTG Duration 09/10/18 Three Impairment Drop foot [facility] Goal (LTG) Pt to complete 2 MWT with no instances of drop foot LTG Duration 09/10/18 Two Impairment Activity participation Counter Roller Goal (LTG) Pt to return to working out safely at [facility] with no balance concerns LTG Duration 09/10/18 One Impairment Pt has been non-compliant with previous home exercise programs Short Term Goal (STG) Pt to be independent and compliant with appropriate HEP STG Duration 08/10/18 Progress Towards Goals Progress Towards Goals Slow Progress due to Noncompliance Assessment Summary Assessment Pt making some slow progress, however as has been the case historically with this patient , there is minimal compliance with HEP, and pt has decreased motivation when not at the therapy clinic. Physical Therapy Plan Frequency and Duration Frequency of Treatment 2x/Week Duration of Treatment 12 weeks Plan of Care Start Date 07/11/18 Plan of Care End Date 10/03/18 Therapeutic Interventions Therapeutic Interventions Aquatic Therapy Balance Training Gait Training Home Exercise Program Manual Therapy Neuromuscular Re-education Patient/Caregiver Education Self-Care/Home Management Soft Tissue Mobilization Therapeutic Activities Therapeutic Exercises Next Visit Focus/Plan Next Note Type Treatment Note Next Visit Plan balance and gait training as tolerated.
--- NOTE | 2018-08-26 16:00 | PT.OTN ---
Current Diagnoses Other abnormalities of gait and mobility (08/26/18) Physical Therapy Treatment Note PT-OP-A Visit Information Start: 07/11/18 13:51 Freq: Status: Active Protocol: Document 08/26/18 15:15 DCW (Rec: 08/26/18 15:59 DCW [id number]) Out-Patient Physical Therapy Visit Information Visit Information Visit Type Treatment Note Visit Start Time 15:15 Visit Stop Time 16:00 Total Visit Minutes 45 Visit Number 11 Number of FEEDER LOADER Visits 0 Evaluation Information Evaluation Date 07/11/18 PT-OP-B Current Condition Start: 07/11/18 13:51 Freq: Status: Active Protocol: Document 07/11/18 11:15 DCW (Rec: 07/11/18 14:11 DCW [id number]) Current Condition History of Current Condition Onset Date Multi-year history Current Complaints Instability, core weakness, LE weakness, L drop foot, history of falls History of Current Condition Pt is an 82 year old male presenting with a multi-year history of imbalance, falls, and weakness. Pt has been seen at this facility multiple times previously, and admits that my biggest problem is that I have no self-discipline , and I never do what I'm supposed to do unless I'm coming in here. Admits that he has never developed any core strength, even though he knows that it would be a big help. 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 Pt notes that he had previously had drop foot in 2009 following chemo and radiation for prostate cancer, but it eventually went away on its own, and was never as bad as it is now. Pt also notes that he has neuropathy in both feet, but he believes that it has actually been improving, or at least it isn't bothering me as much. Prior Treatments and Tests Prior physical therapy sessions at this facility Treatment Goals Patient/Caregiver Goals Pt wants to improve his stability and core strength, and return to working out at [facility]. PT-OP-C Subjective Start: 07/11/18 13:51 Freq: Status: Active Protocol: Document 08/26/18 15:15 DCW (Rec: 08/26/18 15:59 DCW [id number]) OP-PT Subjective Patient Comments Patient Comments I'm worried about the fact that I feel like I'm going backwards. PT-OP-D Balance Start: 07/11/18 13:51 Freq: Status: Active Protocol: Document 07/11/18 11:15 DCW (Rec: 07/11/18 14:11 DCW [id number]) OP-PT Balance Assessment Standing Balance Static Standing Balance Ability Good Dynamic Standing Balance Ability Fair Device Used SPC Balance Tests Garza Balance Test Garza Balance Test Score 49/56 Garza Impairment Rating 1 to 19% Impaired (Score 45-55 ) mCTSIB mCTSIB Position 1 Slight Sway mCTSIB Position 2 Mild Sway mCTSIB Position 3 Mild Sway mCTSIB Position 4 Fall Reaction Garza Balance Assessment Evaluation Sitting to Standing Ability Independent w/out Hands Unsupported Stance Safely- 2 minutes Sitting Unsupported, Feet on Floor Safely- 2 minutes Standing to Sitting Ability Safely, Minimal Hand Use Transfer Ability Safely, Minimal Hand Use Unsupported Stance- Eyes Closed Safely, 10 seconds Unsupported Stance- Eyes Open Independent, 1 minute Reaching Forward Standing Safely, 5 inches Pick- Up Object From Floor Independent/Safe Look Behind Shoulder - Standing Shifts Weight Unilateral Turning 360 Degrees Turns , < 4 secs Unsupported Stance, Alternating Feet on (I)- 8 Steps in 20 secs Stair Unsupported Tandem Stance Holds Tandem- 30 seconds Unilateral Leg Stance Lifts Leg/Unable to Hold Total Score Garza Total Score (out of 56 points) 49 Garza Impairment Rating 1 to 19% Impaired (Score 45-55 ) March Fall Scale Copyright Permission Joaquim ZUNIGA, Joaquim RM, Matias SJ. Development of a scale to identify the fall- prone patient. Can J Aging 1989;8;366-7. Rina March (2009). Preventing patient falls. (2nd ed). [place]: [place]. PT-OP-E Functional Tests Start: 07/11/18 13:51 Freq: Status: Active Protocol: Document 07/11/18 11:15 DCW (Rec: 07/11/18 14:11 DCW [id number]) Functional Tests Dynamic Gait Index (DGI) Score 15/24 DGI Impairment Rating 20 to <40% Impaired (Score 15- 19) PT-OP-M Strength Start: 07/11/18 13:51 Freq: Status: Active Protocol: Document 07/11/18 11:15 DCW (Rec: 07/11/18 14:11 DCW [id number]) Hip Strength Hip Manual Muscle Testing Right Flexion (L2) 4 Good Abduction 4+ Good+ Adduction 4 Good Left Flexion (L2) 4 Good Abduction 4+ Good+ Adduction 4 Good Knee Strength Knee Manual Muscle Testing Right Flexion (S2) 4+ Good+ Extension (L3) 4+ Good+ Left Flexion (S2) 4+ Good+ Extension (L3) 4+ Good+ Ankle/Foot Strength Ankle and Foot Manual Muscle Testing Right Dorsiflexion (L4) 4 Good Plantarflexion (S1) 4- Good- Left Dorsiflexion (L4) 3- Fair- Plantarflexion (S1) 3+ Fair+ PT-OP-Q Treatments Start: 07/11/18 13:51 Freq: Status: Active Protocol: Document 08/26/18 15:15 DCW (Rec: 08/26/18 15:59 DCW [id number]) Cardio Equipment Recumbent Stepper (Sci-Fit) Duration (Minutes) 6 Resistance 3 Seat Position 10 Gym Equipment Shuttle Recovery Bilateral Heel Raises Resistance 75# Shuttle Recovery Platform Stable Reps/Time 2x10 Bilateral Squats Resistance 125# Shuttle Recovery Platform Stable Reps/Time 2x10 Shuttle Balance Red Comments Wide AGUSTÍN (EO/EC), Staggered Stance, Ball toss at rebounde Therapeutic Exercises Other Exercises Resisted Fwd/Retro walking Other Exercise Name Resisted Fwd/Retro Walking Resistance Green Equipment Used T-band Resisted Side-stepping Other Exercise Name Resisted Side-stepping Resistance Green Equipment Used T-band PT-OP-R Modalities Start: 07/11/18 13:51 Freq: Status: Active Protocol: Document 08/26/18 15:15 DCW (Rec: 08/26/18 15:59 DCW [id number]) Electric Stimulation Electric Stimulation Syrian Stimulation Body Location L Tib Anterior Duration (Minutes) 10 Intensity 60 Frequency 5 on/5 off Comments Perform with DF PT-OP-T Assessment and Plan Start: 07/11/18 13:51 Freq: Status: Active Protocol: Document 08/26/18 15:15 DCW (Rec: 08/26/18 15:59 DCW [id number]) Physical Therapy Assessment Impairments Impairments Activity Tolerance Balance Gait Posture Sensation Strength Goals Four Impairment Dynamic Balance Real Estate Professor Goal (LTG) Pt to score 20/24 on DGI LTG Duration 09/10/18 Three Impairment Drop foot Real Estate Professor Goal (LTG) Pt to complete 2 MWT with no instances of drop foot LTG Duration 09/10/18 Two Impairment Activity participation Real Estate Professor Goal (LTG) Pt to return to working out safely at [employer] with no balance concerns LTG Duration 09/10/18 One Impairment Pt has been non-compliant with previous home exercise programs Short Term Goal (STG) Pt to be independent and compliant with appropriate HEP STG Duration 08/10/18 Progress Towards Goals Progress Towards Goals Slow Progress due to Noncompliance Assessment Summary Assessment Pt's reports of decreasing include feeling like his walking is rougher, and the drop foot is droppier. Pt does admit that he feels like he has been fighting off a cold since , and that may have something to do with it. Trial of Syrian e- stim to assist dorsiflexion. Physical Therapy Plan Frequency and Duration Frequency of Treatment 2x/Week Duration of Treatment 12 weeks Plan of Care Start Date 07/11/18 Plan of Care End Date 10/03/18 Therapeutic Interventions Therapeutic Interventions Aquatic Therapy Balance Training Gait Training Home Exercise Program Manual Therapy Neuromuscular Re-education Patient/Caregiver Education Self-Care/Home Management Soft Tissue Mobilization Therapeutic Activities Therapeutic Exercises Next Visit Focus/Plan Next Note Type Treatment Note Next Visit Plan balance and gait training as tolerated. Assess pt tolerance of E-stim trial.
--- NOTE | 2018-08-29 12:00 | PT.OTN ---
Current Diagnoses Other abnormalities of gait and mobility (08/29/18) Physical Therapy Treatment Note PT-OP-A Visit Information Start: 07/11/18 13:51 Freq: Status: Active Protocol: Document 08/29/18 12:00 RCC (Rec: 08/29/18 14:30 RCC [email or web address]) Out-Patient Physical Therapy Visit Information Visit Information Visit Type Treatment Note Visit Start Time 11:35 Visit Stop Time 12:05 Total Visit Minutes 30 Visit Number 12 Number of ADVERTISING REP Visits 0 Evaluation Information Evaluation Date 07/11/18 PT-OP-B Current Condition Start: 07/11/18 13:51 Freq: Status: Active Protocol: Document 07/11/18 11:15 DCW (Rec: 07/11/18 14:11 DCW [id number]) Current Condition History of Current Condition Onset Date Multi-year history Current Complaints Instability, core weakness, LE weakness, L drop foot, history of falls History of Current Condition Pt is an 82 year old male presenting with a multi-year history of imbalance, falls, and weakness. Pt has been seen at this facility multiple times previously, and admits that my biggest problem is that I have no self-discipline , and I never do what I'm supposed to do unless I'm coming in here. Admits that he has never developed any core strength, even though he knows that it would be a big help. 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 Pt notes that he had previously had drop foot in 2009 following chemo and radiation for prostate cancer, but it eventually went away on its own, and was never as bad as it is now. Pt also notes that he has neuropathy in both feet, but he believes that it has actually been improving, or at least it isn't bothering me as much. Prior Treatments and Tests Prior physical therapy sessions at this facility Treatment Goals Patient/Caregiver Goals Pt wants to improve his stability and core strength, and return to working out at [facility]. PT-OP-C Subjective Start: 07/11/18 13:51 Freq: Status: Active Protocol: Document 08/29/18 12:00 RCC (Rec: 08/29/18 14:30 [facility] [email or web address]) OP-PT Subjective Patient Comments Patient Comments Pt states he felt like the electrical stimulation has helped with his awareness of his L foot. PT-OP-D Balance Start: 07/11/18 13:51 Freq: Status: Active Protocol: Document 07/11/18 11:15 DCW (Rec: 07/11/18 14:11 DCW [id number]) OP-PT Balance Assessment Standing Balance Static Standing Balance Ability Good Dynamic Standing Balance Ability Fair Device Used SPC Balance Tests Garza Balance Test Garza Balance Test Score 49/56 Garza Impairment Rating 1 to 19% Impaired (Score 45-55 ) mCTSIB mCTSIB Position 1 Slight Sway mCTSIB Position 2 Mild Sway mCTSIB Position 3 Mild Sway mCTSIB Position 4 Fall Reaction Garza Balance Assessment Evaluation Sitting to Standing Ability Independent w/out Hands Unsupported Stance Safely- 2 minutes Sitting Unsupported, Feet on Floor Safely- 2 minutes Standing to Sitting Ability Safely, Minimal Hand Use Transfer Ability Safely, Minimal Hand Use Unsupported Stance- Eyes Closed Safely, 10 seconds Unsupported Stance- Eyes Open Independent, 1 minute Reaching Forward Standing Safely, 5 inches Pick- Up Object From Floor Independent/Safe Look Behind Shoulder - Standing Shifts Weight Unilateral Turning 360 Degrees Turns , < 4 secs Unsupported Stance, Alternating Feet on (I)- 8 Steps in 20 secs Stair Unsupported Tandem Stance Holds Tandem- 30 seconds Unilateral Leg Stance Lifts Leg/Unable to Hold Total Score Garza Total Score (out of 56 points) 49 Garza Impairment Rating 1 to 19% Impaired (Score 45-55 ) March Fall Scale Copyright Permission Joaquim ZUNIGA, Joaquim RM, Matias SJ. Development of a scale to identify the fall- prone patient. Can J Aging 1989;8;366-7. Rina March (2009). Preventing patient falls. (2nd ed). [place]: [place]. PT-OP-E Functional Tests Start: 07/11/18 13:51 Freq: Status: Active Protocol: Document 07/11/18 11:15 DCW (Rec: 07/11/18 14:11 DCW [id number]) Functional Tests Dynamic Gait Index (DGI) Score 15/24 DGI Impairment Rating 20 to <40% Impaired (Score 15- 19) PT-OP-M Strength Start: 07/11/18 13:51 Freq: Status: Active Protocol: Document 07/11/18 11:15 DCW (Rec: 07/11/18 14:11 DCW [id number]) Hip Strength Hip Manual Muscle Testing Right Flexion (L2) 4 Good Abduction 4+ Good+ Adduction 4 Good Left Flexion (L2) 4 Good Abduction 4+ Good+ Adduction 4 Good Knee Strength Knee Manual Muscle Testing Right Flexion (S2) 4+ Good+ Extension (L3) 4+ Good+ Left Flexion (S2) 4+ Good+ Extension (L3) 4+ Good+ Ankle/Foot Strength Ankle and Foot Manual Muscle Testing Right Dorsiflexion (L4) 4 Good Plantarflexion (S1) 4- Good- Left Dorsiflexion (L4) 3- Fair- Plantarflexion (S1) 3+ Fair+ PT-OP-Q Treatments Start: 07/11/18 13:51 Freq: Status: Active Protocol: Document 08/29/18 12:00 [facility] (Rec: 08/29/18 14:30 [facility] [id number]) Gym Equipment Shuttle Recovery Unilateral Squats Resistance 75# Shuttle Recovery Platform Stable Reps/Time 2x10 Bilateral Squats Resistance 125# Shuttle Recovery Platform Stable Reps/Time 2x10 Shuttle Balance Red Comments Wide AGUSTÍN (EO/EC), Staggered Stance PT-OP-R Modalities Start: 07/11/18 13:51 Freq: Status: Active Protocol: Document 08/29/18 12:00 [facility] (Rec: 08/29/18 14:30 [facility] [id number]) Electric Stimulation Electric Stimulation [place] Stimulation Body Location L Tib Anterior Duration (Minutes) 10 Intensity 60 Frequency 10 on/10 off Comments Perform with DF PT-OP-T Assessment and Plan Start: 07/11/18 13:51 Freq: Status: Active Protocol: Document 08/29/18 12:00 [facility]Rec[facility] 08/29/18 [email or web address] Assessment Assessment Summary Assessment Pt late for appointment today, but did have good pacing of activities during session today. Pt tolerated electrical stimulation well, able to tolerate 10 sec on/10 sec off without high fatigue today. Physical Therapy Plan Frequency and Duration Frequency of Treatment 2x/Week Duration of Treatment 12 weeks Plan of Care Start Date 07/11/18 Plan of Care End Date 10/03/18 Next Visit Focus/Plan Next Note Type Treatment Note Next Visit Plan prog. LE strength, balance and gait as tolerated.
--- NOTE | 2018-09-03 11:29 | PT.OTN ---
Current Diagnoses Other abnormalities of gait and mobility (09/03/18) Physical Therapy Treatment Note PT-OP-A Visit Information Start: 07/11/18 13:51 Freq: Status: Active Protocol: Document 09/03/18 11:17 SA (Rec: 09/03/18 11:29 [email or web address]) Out-Patient Physical Therapy Visit Information Visit Information Visit Type Treatment Note Visit Start Time 10:29 Visit Stop Time 11:16 Total Visit Minutes 47 Visit Number 13 Number of METROLOGY SPECIALIST Visits 1 PT-OP-B Current Condition Start: 07/11/18 13:51 Freq: Status: Active Protocol: Document 07/11/18 11:15 DCW (Rec: 07/11/18 14:11 DCW [id number]) Current Condition History of Current Condition Onset Date Multi-year history Current Complaints Instability, core weakness, LE weakness, L drop foot, history of falls History of Current Condition Pt is an 82 year old male presenting with a multi-year history of imbalance, falls, and weakness. Pt has been seen at this facility multiple times previously, and admits that my biggest problem is that I have no self-discipline , and I never do what I'm supposed to do unless I'm coming in here. Admits that he has never developed any core strength, even though he knows that it would be a big help. 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 Pt notes that he had previously had drop foot in 2009 following chemo and radiation for prostate cancer, but it eventually went away on its own, and was never as bad as it is now. Pt also notes that he has neuropathy in both feet, but he believes that it has actually been improving, or at least it isn't bothering me as much. Prior Treatments and Tests Prior physical therapy sessions at this facility Treatment Goals Patient/Caregiver Goals Pt wants to improve his stability and core strength, and return to working out at [facility]. PT-OP-C Subjective Start: 07/11/18 13:51 Freq: Status: Active Protocol: Document 09/03/18 11:17 [facility] (Rec: 09/03/18 11:29 [email or web address]) OP-PT Subjective Patient Comments Patient Comments Pt reports feeling like the e- stim is helping with foot drop . Thinks he may try going to [facility] gym. PT-OP-D Balance Start: 07/11/18 13:51 Freq: Status: Active Protocol: Document 07/11/18 11:15 DCW (Rec: 07/11/18 14:11 DCW [id number]) OP-PT Balance Assessment Standing Balance Static Standing Balance Ability Good Dynamic Standing Balance Ability Fair Device Used SPC Balance Tests Garza Balance Test Garza Balance Test Score 49/56 Garza Impairment Rating 1 to 19% Impaired (Score 45-55 ) mCTSIB mCTSIB Position 1 Slight Sway mCTSIB Position 2 Mild Sway mCTSIB Position 3 Mild Sway mCTSIB Position 4 Fall Reaction Garza Balance Assessment Evaluation Sitting to Standing Ability Independent w/out Hands Unsupported Stance Safely- 2 minutes Sitting Unsupported, Feet on Floor Safely- 2 minutes Standing to Sitting Ability Safely, Minimal Hand Use Transfer Ability Safely, Minimal Hand Use Unsupported Stance- Eyes Closed Safely, 10 seconds Unsupported Stance- Eyes Open Independent, 1 minute Reaching Forward Standing Safely, 5 inches Pick- Up Object From Floor Independent/Safe Look Behind Shoulder - Standing Shifts Weight Unilateral Turning 360 Degrees Turns , < 4 secs Unsupported Stance, Alternating Feet on (I)- 8 Steps in 20 secs Stair Unsupported Tandem Stance Holds Tandem- 30 seconds Unilateral Leg Stance Lifts Leg/Unable to Hold Total Score Garza Total Score (out of 56 points) 49 Garza Impairment Rating 1 to 19% Impaired (Score 45-55 ) March Fall Scale Copyright Permission Joaquim ZUNIGA, Joaquim RM, Matias SJ. Development of a scale to identify the fall- prone patient. Can J Aging 1989;8;366-7. Rina March (2009). Preventing patient falls. (2nd ed). [place]: [place]. PT-OP-E Functional Tests Start: 07/11/18 13:51 Freq: Status: Active Protocol: Document 07/11/18 11:15 DCW (Rec: 07/11/18 14:11 DCW [id number]) Functional Tests Dynamic Gait Index (DGI) Score 15/24 DGI Impairment Rating 20 to <40% Impaired (Score 15- 19) PT-OP-M Strength Start: 07/11/18 13:51 Freq: Status: Active Protocol: Document 07/11/18 11:15 DCW (Rec: 07/11/18 14:11 DCW [id number]) Hip Strength Hip Manual Muscle Testing Right Flexion (L2) 4 Good Abduction 4+ Good+ Adduction 4 Good Left Flexion (L2) 4 Good Abduction 4+ Good+ Adduction 4 Good Knee Strength Knee Manual Muscle Testing Right Flexion (S2) 4+ Good+ Extension (L3) 4+ Good+ Left Flexion (S2) 4+ Good+ Extension (L3) 4+ Good+ Ankle/Foot Strength Ankle and Foot Manual Muscle Testing Right Dorsiflexion (L4) 4 Good Plantarflexion (S1) 4- Good- Left Dorsiflexion (L4) 3- Fair- Plantarflexion (S1) 3+ Fair+ PT-OP-Q Treatments Start: 07/11/18 13:51 Freq: Status: Active Protocol: Document 09/03/18 11:17 (Rec: 09/03/18 11:29 [email or web address]) Cardio Equipment Recumbent Stepper (Sci-Fit) Duration (Minutes) 6 Resistance 3 Seat Position 10 Gym Equipment Shuttle Recovery Unilateral Squats Resistance 75# Shuttle Recovery Platform Stable Reps/Time 2x10 Bilateral Heel Raises Resistance 75# Shuttle Recovery Platform Stable Reps/Time 2x10 Bilateral Squats Resistance 125# Shuttle Recovery Platform Stable Reps/Time 2x10 Shuttle Balance Red Reps/Duration 6 min Comments Wide, NBOs, Tandem, head turns , UE movements, ball rebound toss Therapeutic Exercises Sitting Exercises ankle DF Sitting Exercise Name Ankle DF Side left Resistance # 1 TB Reps/Minutes 2 x 10 Standing Exercises Ankle Plantar flexion Standing Exercise Name Ankle PF Equipment Used EDDIE Reps/Minutes 2x40 Neuro Re-Education Treatment Balance Activities Tandem Stance Details Tandem stance @ rail Surface Firm SLS Details SLS Surface Firm Reps/Duration 10-15 2x each PT-OP-R Modalities Start: 07/11/18 13:51 Freq: Status: Active Protocol: Document 09/03/18 11:17 SA (Rec: 09/03/18 11:29 [email or web address]) Electric Stimulation Electric Stimulation [place] Stimulation Body Location L Tib Anterior Duration (Minutes) 10 Intensity 60 Frequency 10 on/10 off Patient Position Sitting Comments Perform with DF PT-OP-T Assessment and Plan Start: 07/11/18 13:51 Freq: Status: Active Protocol: Document 09/03/18 11:17 SA (Rec: 09/03/18 11:29 [email or web address]) Physical Therapy Assessment Assessment Summary Assessment Pt doing well with exercise and HEP, feels E-stim is helping with LLE foot drop. Pt wearing less cushioned shoes and feels proprioception is better. Wants to be able to get on a horse without using a stool. Physical Therapy Plan Next Visit Focus/Plan Next Note Type Treatment Note Next Visit Plan Continue to progress LE strengthening and balance program. Possible hip/knee flexion stretching to help with getting on a horse.
--- NOTE | 2018-09-05 11:28 | PT.OTN ---
Current Diagnoses Other abnormalities of gait and mobility (09/05/18) Physical Therapy Treatment Note PT-OP-A Visit Information Start: 07/11/18 13:51 Freq: Status: Active Protocol: Document 09/05/18 10:30 DCW (Rec: 09/05/18 11:27 DCW [id number]) Out-Patient Physical Therapy Visit Information Visit Information Visit Type Treatment Note Visit Start Time 10:30 Visit Stop Time 11:25 Total Visit Minutes 45 Visit Number 14 Number of LEAD SHIPPER Visits 0 Evaluation Information Evaluation Date 07/11/18 PT-OP-B Current Condition Start: 07/11/18 13:51 Freq: Status: Active Protocol: Document 07/11/18 11:15 DCW (Rec: 07/11/18 14:11 DCW [id number]) Current Condition History of Current Condition Onset Date Multi-year history Current Complaints Instability, core weakness, LE weakness, L drop foot, history of falls History of Current Condition Pt is an 82 year old male presenting with a multi-year history of imbalance, falls, and weakness. Pt has been seen at this facility multiple times previously, and admits that my biggest problem is that I have no self-discipline , and I never do what I'm supposed to do unless I'm coming in here. Admits that he has never developed any core strength, even though he knows that it would be a big help. 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 Pt notes that he had previously had drop foot in 2009 following chemo and radiation for prostate cancer, but it eventually went away on its own, and was never as bad as it is now. Pt also notes that he has neuropathy in both feet, but he believes that it has actually been improving, or at least it isn't bothering me as much. Prior Treatments and Tests Prior physical therapy sessions at this facility Treatment Goals Patient/Caregiver Goals Pt wants to improve his stability and core strength, and return to working out at [facility]. PT-OP-C Subjective Start: 07/11/18 13:51 Freq: Status: Active Protocol: Document 09/05/18 10:30 DCW (Rec: 09/05/18 11:27 DCW [id number]) OP-PT Subjective Patient Comments Patient Comments Pt reports he is a little worried about his upcoming vacation to his son's ranch, where he hopes to be out riding their horses a lot. Pt reports he doesn't think he'll be able to get his foot into the stirrup to get on the horse without a block to stand on, which he likely will not have. PT-OP-D Balance Start: 07/11/18 13:51 Freq: Status: Active Protocol: Document 07/11/18 11:15 DCW (Rec: 07/11/18 14:11 DCW [id number]) OP-PT Balance Assessment Standing Balance Static Standing Balance Ability Good Dynamic Standing Balance Ability Fair Device Used SPC Balance Tests Garza Balance Test Garza Balance Test Score 49/56 Garza Impairment Rating 1 to 19% Impaired (Score 45-55 ) mCTSIB mCTSIB Position 1 Slight Sway mCTSIB Position 2 Mild Sway mCTSIB Position 3 Mild Sway mCTSIB Position 4 Fall Reaction Garza Balance Assessment Evaluation Sitting to Standing Ability Independent w/out Hands Unsupported Stance Safely- 2 minutes Sitting Unsupported, Feet on Floor Safely- 2 minutes Standing to Sitting Ability Safely, Minimal Hand Use Transfer Ability Safely, Minimal Hand Use Unsupported Stance- Eyes Closed Safely, 10 seconds Unsupported Stance- Eyes Open Independent, 1 minute Reaching Forward Standing Safely, 5 inches Pick- Up Object From Floor Independent/Safe Look Behind Shoulder - Standing Shifts Weight Unilateral Turning 360 Degrees Turns , < 4 secs Unsupported Stance, Alternating Feet on (I)- 8 Steps in 20 secs Stair Unsupported Tandem Stance Holds Tandem- 30 seconds Unilateral Leg Stance Lifts Leg/Unable to Hold Total Score Garza Total Score (out of 56 points) 49 Garza Impairment Rating 1 to 19% Impaired (Score 45-55 ) March Fall Scale Copyright Permission Joaquim ZUNIGA, Joaquim RM, Matias SJ. Development of a scale to identify the fall- prone patient. Can J Aging 1989;8;366-7. Rina March (2009). Preventing patient falls. (2nd ed). [place]: [place]. PT-OP-E Functional Tests Start: 07/11/18 13:51 Freq: Status: Active Protocol: Document 07/11/18 11:15 DCW (Rec: 07/11/18 14:11 DCW [id number]) Functional Tests Dynamic Gait Index (DGI) Score 1524 DGI Impairment Rating 20 to <40% Impaired (Score 15- 19) PT-OP-M Strength Start: 07/11/18 13:51 Freq: Status: Active Protocol: Document 07/11/18 11:15 DCW (Rec: 07/11/18 14:11 DCW [id number]) Hip Strength Hip Manual Muscle Testing Right Flexion (L2) 4 Good Abduction 4+ Good+ Adduction 4 Good Left Flexion (L2) 4 Good Abduction 4+ Good+ Adduction 4 Good Knee Strength Knee Manual Muscle Testing Right Flexion (S2) 4+ Good+ Extension (L3) 4+ Good+ Left Flexion (S2) 4+ Good+ Extension (L3) 4+ Good+ Ankle/Foot Strength Ankle and Foot Manual Muscle Testing Right Dorsiflexion (L4) 4 Good Plantarflexion (S1) 4- Good- Left Dorsiflexion (L4) 3- Fair- Plantarflexion (S1) 3+ Fair+ PT-OP-Q Treatments Start: 07/11/18 13:51 Freq: Status: Active Protocol: Document 09/05/18 10:30 DCW (Rec: 09/05/18 11:27 DCW [id number]) Gym Equipment Shuttle Balance Red Comments Wide AGUSTÍN (Perturbations, EO/EC ), Staggered Stance /c Head turns Therapeutic Ball Reverse Leg Press Exercise Details Hip Flexion/Extension vs T- band Resistance Ball Size/Color Red - 55 cm Lv 3 T-band Body Position Supine Therapeutic Exercises Supine Exercises Single KtC Supine Exercise Name Single KtC Comments Manual Hamstring Stretch Supine Exercise Name HS stretch Comments Manual Standing Exercises Hamstring stretch Standing Exercise Name HS step stretch Side bilateral Resistance stairs Reps/Minutes 40 hold Ankle Plantar flexion Standing Exercise Name Ankle PF Equipment Used EDDIE Reps/Minutes X20 1 Standing Exercise Name Gastroc stretch Side bilateral Equipment Used EDDIE Reps/Minutes 2X40 Therapeutic Activity Therapeutic Activity Leg lift to horse stirrup Comments L leg step up to 18 step /c 5 # ankle weight PT-OP-R Modalities Start: 07/11/18 13:51 Freq: Status: Active Protocol: Document 09/05/18 10:30 DCW (Rec: 09/05/18 11:27 DCW [id number]) Electric Stimulation Electric Stimulation Pakistani Stimulation Body Location L Tib Anterior Duration (Minutes) 10 Intensity 60 Frequency 5 on/5 off Patient Position Sitting Comments Perform with DF PT-OP-T Assessment and Plan Start: 07/11/18 13:51 Freq: Status: Active Protocol: Document 09/05/18 10:30 DCW (Rec: 09/05/18 11:27 DCW [id number]) Physical Therapy Assessment Impairments Impairments Activity Tolerance Balance Gait Posture Sensation Strength Goals Four Impairment Dynamic Balance [facility] Goal (LTG) Pt to score 20/24 on DGI LTG Duration 09/10/18 Three Impairment Drop foot [employer] Goal (LTG) Pt to complete 2 MWT with no instances of drop foot LTG Duration 09/10/18 Two Impairment Activity participation [facility] Goal (LTG) Pt to return to working out safely at [facility] with no balance concerns LTG Duration 09/10/18 One Impairment Pt has been non-compliant with previous home exercise programs Short Term Goal (STG) Pt to be independent and compliant with appropriate HEP STG Duration 08/10/18 Progress Towards Goals Progress Towards Goals Slow Progress due to Noncompliance Assessment Summary Assessment Pt continues to feel that the addition of E-stim has helped decrease his drop foot. Pt's difficulty getting into stirrups will be caused by both left LE weakness and significant inflexibility in his hamstrings. Physical Therapy Plan Frequency and Duration Frequency of Treatment 2x/Week Duration of Treatment 12 weeks Plan of Care Start Date 07/11/18 Plan of Care End Date 10/03/18 Therapeutic Interventions Therapeutic Interventions Aquatic Therapy Balance Training Gait Training Home Exercise Program Manual Therapy Neuromuscular Re-education Patient/Caregiver Education Self-Care/Home Management Soft Tissue Mobilization Therapeutic Activities Therapeutic Exercises Next Visit Focus/Plan Next Note Type Treatment Note Next Visit Plan prog. LE strength, balance and gait as tolerated.
--- NOTE | 2018-09-10 15:34 | PT.OTN ---
Current Diagnoses Other abnormalities of gait and mobility (09/10/18) Physical Therapy Treatment Note PT-OP-A Visit Information Start: 07/11/18 13:51 Freq: Status: Active Protocol: Document 09/10/18 10:30 GGD (Rec: 09/10/18 15:34 GGD [id number]) Out-Patient Physical Therapy Visit Information Visit Information Visit Type Treatment Note Visit Start Time 10:30 Visit Stop Time 11:25 Total Visit Minutes 55 Visit Number 15 Number of SOFTWARE QUALITY TEST ENGINEER Visits 1 Evaluation Information Evaluation Date 07/11/18 PT-OP-B Current Condition Start: 07/11/18 13:51 Freq: Status: Active Protocol: Document 07/11/18 11:15 DCW (Rec: 07/11/18 14:11 DCW [id number]) Current Condition History of Current Condition Onset Date Multi-year history Current Complaints Instability, core weakness, LE weakness, L drop foot, history of falls History of Current Condition Pt is an 82 year old male presenting with a multi-year history of imbalance, falls, and weakness. Pt has been seen at this facility multiple times previously, and admits that my biggest problem is that I have no self-discipline , and I never do what I'm supposed to do unless I'm coming in here. Admits that he has never developed any core strength, even though he knows that it would be a big help. 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 Pt notes that he had previously had drop foot in 2009 following chemo and radiation for prostate cancer, but it eventually went away on its own, and was never as bad as it is now. Pt also notes that he has neuropathy in both feet, but he believes that it has actually been improving, or at least it isn't bothering me as much. Prior Treatments and Tests Prior physical therapy sessions at this facility Treatment Goals Patient/Caregiver Goals Pt wants to improve his stability and core strength, and return to working out at [facility]. PT-OP-C Subjective Start: 07/11/18 13:51 Freq: Status: Active Protocol: Document 09/10/18 10:30 GGD (Rec: 09/10/18 15:34 GGD [email or web address]) OP-PT Subjective Patient Comments Patient Comments Pt states that he had increase burning feeling in feet after last visit. PT-OP-D Balance Start: 07/11/18 13:51 Freq: Status: Active Protocol: Document 07/11/18 11:15 DCW (Rec: 07/11/18 14:11 DCW [id number]) OP-PT Balance Assessment Standing Balance Static Standing Balance Ability Good Dynamic Standing Balance Ability Fair Device Used SPC Balance Tests Garza Balance Test Garza Balance Test Score 49/56 Garza Impairment Rating 1 to 19% Impaired (Score 45-55 ) mCTSIB mCTSIB Position 1 Slight Sway mCTSIB Position 2 Mild Sway mCTSIB Position 3 Mild Sway mCTSIB Position 4 Fall Reaction Garza Balance Assessment Evaluation Sitting to Standing Ability Independent w/out Hands Unsupported Stance Safely- 2 minutes Sitting Unsupported, Feet on Floor Safely- 2 minutes Standing to Sitting Ability Safely, Minimal Hand Use Transfer Ability Safely, Minimal Hand Use Unsupported Stance- Eyes Closed Safely, 10 seconds Unsupported Stance- Eyes Open Independent, 1 minute Reaching Forward Standing Safely, 5 inches Pick- Up Object From Floor Independent/Safe Look Behind Shoulder - Standing Shifts Weight Unilateral Turning 360 Degrees Turns , < 4 secs Unsupported Stance, Alternating Feet on (I)- 8 Steps in 20 secs Stair Unsupported Tandem Stance Holds Tandem- 30 seconds Unilateral Leg Stance Lifts Leg/Unable to Hold Total Score Garza Total Score (out of 56 points) 49 Garza Impairment Rating 1 to 19% Impaired (Score 45-55 ) March Fall Scale Copyright Permission Joaquim ZUNIGA, Joaquim RM, Matias SJ. Development of a scale to identify the fall- prone patient. Can J Aging 1989;8;366-7. Rina March (2009). Preventing patient falls. (2nd ed). [place]: [place]. PT-OP-E Functional Tests Start: 07/11/18 13:51 Freq: Status: Active Protocol: Document 07/11/18 11:15 DCW (Rec: 07/11/18 14:11 DCW [id number]) Functional Tests Dynamic Gait Index (DGI) Score 15/24 DGI Impairment Rating 20 to <40% Impaired (Score 15- 19) PT-OP-M Strength Start: 07/11/18 13:51 Freq: Status: Active Protocol: Document 07/11/18 11:15 DCW (Rec: 07/11/18 14:11 DCW [id number]) Hip Strength Hip Manual Muscle Testing Right Flexion (L2) 4 Good Abduction 4+ Good+ Adduction 4 Good Left Flexion (L2) 4 Good Abduction 4+ Good+ Adduction 4 Good Knee Strength Knee Manual Muscle Testing Right Flexion (S2) 4+ Good+ Extension (L3) 4+ Good+ Left Flexion (S2) 4+ Good+ Extension (L3) 4+ Good+ Ankle/Foot Strength Ankle and Foot Manual Muscle Testing Right Dorsiflexion (L4) 4 Good Plantarflexion (S1) 4- Good- Left Dorsiflexion (L4) 3- Fair- Plantarflexion (S1) 3+ Fair+ PT-OP-Q Treatments Start: 07/11/18 13:51 Freq: Status: Active Protocol: Document 09/10/18 10:30 GGD (Rec: 09/10/18 15:34 GGD [email or web address]) Gym Equipment Shuttle Recovery Unilateral Squats Resistance 75# Shuttle Recovery Platform Stable Reps/Time 2x10 Bilateral Heel Raises Resistance 75# Shuttle Recovery Platform Stable Reps/Time 2x10 Bilateral Squats Resistance 125# Shuttle Recovery Platform Stable Reps/Time 2x10 Shuttle Balance Red Comments Wide AGUSTÍN (Perturbations, EO/EC ), Staggered Stance /c Head turns Therapeutic Ball Reverse Leg Press Exercise Details Hip Flexion/Extension vs T- band Resistance Ball Size/Color Red - 55 cm Lv 3 T-band Body Position Supine Therapeutic Exercises Supine Exercises Single KtC Supine Exercise Name Single KtC Comments Manual Hamstring Stretch Supine Exercise Name HS stretch Comments Manual Standing Exercises Hamstring stretch Standing Exercise Name HS step stretch Side bilateral Resistance stairs Reps/Minutes 40 hold Ankle Plantar flexion Standing Exercise Name Ankle PF Equipment Used EDDIE Reps/Minutes X20 1 Standing Exercise Name Gastroc stretch Side bilateral Equipment Used EDDIE Reps/Minutes 2X40 Therapeutic Activity Therapeutic Activity Leg lift to horse stirrup Comments L leg step up to 18 step /c 5 # ankle weight PT-OP-R Modalities Start: 07/11/18 13:51 Freq: Status: Active Protocol: Document 09/10/18 10:30 GGD (Rec: 09/10/18 15:34 GGD [id number]) Electric Stimulation Electric Stimulation French Stimulation Body Location L Tib Anterior Duration (Minutes) 10 Intensity 60 Frequency 5 on/5 off Patient Position Sitting Comments Perform with DF PT-OP-T Assessment and Plan Start: 07/11/18 13:51 Freq: Status: Active Protocol: Document 09/10/18 10:30 GGD (Rec: 09/10/18 15:34 GGD [email or web address]) Physical Therapy Assessment Goals Four Impairment Dynamic Balance [facility] Goal (LTG) Pt to score 20/24 on DGI LTG Duration 09/10/18 Three Impairment Drop foot [employer] Goal (LTG) Pt to complete 2 MWT with no instances of drop foot LTG Duration 09/10/18 Two Impairment Activity participation M[employer]er Goal (LTG) Pt to return to working out safely at [facility] with no balance concerns LTG Duration 09/10/18 One Impairment Pt has been non-compliant with previous home exercise programs Short Term Goal (STG) Pt to be independent and compliant with appropriate HEP STG Duration 08/10/18 Assessment Summary Assessment Pt improving with balance. He is limit in hamstring flexibility. He need cues for exercise technique and HEP. Physical Therapy Plan Frequency and Duration Frequency of Treatment 2x/Week Duration of Treatment 12 weeks Plan of Care Start Date 07/11/18 Plan of Care End Date 10/03/18 Therapeutic Interventions Therapeutic Interventions Aquatic Therapy Balance Training Gait Training Home Exercise Program Manual Therapy Neuromuscular Re-education Patient/Caregiver Education Self-Care/Home Management Soft Tissue Mobilization Therapeutic Activities Therapeutic Exercises Next Visit Focus/Plan Next Note Type Treatment Note Next Visit Plan prog. LE strength, balance and gait as tolerated.
--- NOTE | 2018-09-12 10:30 | PT.OTN ---
Current Diagnoses Other abnormalities of gait and mobility (09/12/18) Physical Therapy Treatment Note PT-OP-A Visit Information Start: 07/11/18 13:51 Freq: Status: Active Protocol: Document 09/12/18 10:30 RCC (Rec: 09/12/18 13:29 RCC [email or web address]) Out-Patient Physical Therapy Visit Information Visit Information Visit Type Treatment Note Visit Start Time 09:45 Visit Stop Time 10:35 Total Visit Minutes 50 Visit Number 16 Number of COUTURE ALTERATIONS DRESSMAKER Visits 0 Evaluation Information Evaluation Date 07/11/18 PT-OP-B Current Condition Start: 07/11/18 13:51 Freq: Status: Active Protocol: Document 07/11/18 11:15 DCW (Rec: 07/11/18 14:11 DCW [id number]) Current Condition History of Current Condition Onset Date Multi-year history Current Complaints Instability, core weakness, LE weakness, L drop foot, history of falls History of Current Condition Pt is an 82 year old male presenting with a multi-year history of imbalance, falls, and weakness. Pt has been seen at this facility multiple times previously, and admits that my biggest problem is that I have no self-discipline , and I never do what I'm supposed to do unless I'm coming in here. Admits that he has never developed any core strength, even though he knows that it would be a big help. 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 Pt notes that he had previously had drop foot in 2009 following chemo and radiation for prostate cancer, but it eventually went away on its own, and was never as bad as it is now. Pt also notes that he has neuropathy in both feet, but he believes that it has actually been improving, or at least it isn't bothering me as much. Prior Treatments and Tests Prior physical therapy sessions at this facility Treatment Goals Patient/Caregiver Goals Pt wants to improve his stability and core strength, and return to working out at [facility]. PT-OP-C Subjective Start: 07/11/18 13:51 Freq: Status: Active Protocol: Document 09/12/18 10:30 RCC (Rec: 09/12/18 13:29 RCC [email or web address]) OP-PT Subjective Patient Comments Patient Comments Pt's burning in his feet has gone away. He felt better and more flexible after last session. PT-OP-D Balance Start: 07/11/18 13:51 Freq: Status: Active Protocol: Document 07/11/18 11:15 DCW (Rec: 07/11/18 14:11 DCW [id number]) OP-PT Balance Assessment Standing Balance Static Standing Balance Ability Good Dynamic Standing Balance Ability Fair Device Used SPC Balance Tests Garza Balance Test Garza Balance Test Score 49/56 Garza Impairment Rating 1 to 19% Impaired (Score 45-55 ) mCTSIB mCTSIB Position 1 Slight Sway mCTSIB Position 2 Mild Sway mCTSIB Position 3 Mild Sway mCTSIB Position 4 Fall Reaction Garza Balance Assessment Evaluation Sitting to Standing Ability Independent w/out Hands Unsupported Stance Safely- 2 minutes Sitting Unsupported, Feet on Floor Safely- 2 minutes Standing to Sitting Ability Safely, Minimal Hand Use Transfer Ability Safely, Minimal Hand Use Unsupported Stance- Eyes Closed Safely, 10 seconds Unsupported Stance- Eyes Open Independent, 1 minute Reaching Forward Standing Safely, 5 inches Pick- Up Object From Floor Independent/Safe Look Behind Shoulder - Standing Shifts Weight Unilateral Turning 360 Degrees Turns , < 4 secs Unsupported Stance, Alternating Feet on (I)- 8 Steps in 20 secs Stair Unsupported Tandem Stance Holds Tandem- 30 seconds Unilateral Leg Stance Lifts Leg/Unable to Hold Total Score Garza Total Score (out of 56 points) 49 Garza Impairment Rating 1 to 19% Impaired (Score 45-55 ) March Fall Scale Copyright Permission Joaquim ZUNIGA, Joaquim RM, Matias SJ. Development of a scale to identify the fall- prone patient. Can J Aging 1989;8;366-7. Rina March (2009). Preventing patient falls. (2nd ed). [place]: [place]. PT-OP-E Functional Tests Start: 07/11/18 13:51 Freq: Status: Active Protocol: Document 07/11/18 11:15 DCW (Rec: 07/11/18 14:11 DCW [id number]) Functional Tests Dynamic Gait Index (DGI) Score 15/24 DGI Impairment Rating 20 to <40% Impaired (Score 15- 19) PT-OP-M Strength Start: 07/11/18 13:51 Freq: Status: Active Protocol: Document 07/11/18 11:15 DCW (Rec: 07/11/18 14:11 DCW [id number]) Hip Strength Hip Manual Muscle Testing Right Flexion (L2) 4 Good Abduction 4+ Good+ Adduction 4 Good Left Flexion (L2) 4 Good Abduction 4+ Good+ Adduction 4 Good Knee Strength Knee Manual Muscle Testing Right Flexion (S2) 4+ Good+ Extension (L3) 4+ Good+ Left Flexion (S2) 4+ Good+ Extension (L3) 4+ Good+ Ankle/Foot Strength Ankle and Foot Manual Muscle Testing Right Dorsiflexion (L4) 4 Good Plantarflexion (S1) 4- Good- Left Dorsiflexion (L4) 3- Fair- Plantarflexion (S1) 3+ Fair+ PT-OP-Q Treatments Start: 07/11/18 13:51 Freq: Status: Active Protocol: Document 09/12/18 10:30 RCC (Rec: 09/12/18 13:29 RCC [email or web address]) Gym Equipment Shuttle Recovery Unilateral Squats Resistance 75# Shuttle Recovery Platform Stable Reps/Time 2x10 Bilateral Heel Raises Resistance 75# Shuttle Recovery Platform Stable Reps/Time 1x10, 1x8 Bilateral Squats Resistance 125# Shuttle Recovery Platform Stable Reps/Time 2x10 Shuttle Balance Red Comments Wide AGUSTÍN (Perturbations, EO/EC ), Staggered Stance /c Head turns; Rebounder A/P Therapeutic Exercises Supine Exercises Figure 4 stretch Side bilateral Comments Manual Adductor stretch Side bilateral Comments Manual Single KtC Supine Exercise Name Single KtC Side bilateral Comments Manual Hamstring Stretch Supine Exercise Name HS stretch Side bilateral Comments Manual Standing Exercises Leg lift Standing Exercise Name leg lift into horse stirrup Side bilateral Comments L leg step up to 18 step /c 5 # ankle weight Hamstring stretch Standing Exercise Name HS step stretch Side bilateral Resistance stairs Reps/Minutes 60 hold 1 Standing Exercise Name Gastroc stretch Side bilateral Equipment Used EDDIE Reps/Minutes 2X40 PT-OP-R Modalities Start: 07/11/18 13:51 Freq: Status: Active Protocol: Document 09/12/18 10:30 RCC (Rec: 09/12/18 13:29 RCC [email or web address]) Electric Stimulation Electric Stimulation Salvadorean Stimulation Body Location L Tib Anterior Duration (Minutes) 10 Intensity 58 Frequency 10 on/10 off Patient Position Sitting Comments Perform with DF PT-OP-T Assessment and Plan Start: 07/11/18 13:51 Freq: Status: Active Protocol: Document 09/12/18 10:30 RCC (Rec: 09/12/18 13:29 RCC [email or web address]) Physical Therapy Assessment Assessment Summary Assessment Pt limited with HS flexibility bilaterally, and L>R LE weakness during leg lifting activities. Pt with tendency to perform standing and leg press activities with excessive L hip ER causing toe out, corrected with verbal cuing. Physical Therapy Plan Frequency and Duration Frequency of Treatment 2x/Week Duration of Treatment 12 weeks Plan of Care Start Date 07/11/18 Plan of Care End Date 10/03/18 Next Visit Focus/Plan Next Note Type Treatment Note Next Visit Plan cont. to advance balance, gait , LLE strengthening including DF
--- NOTE | 2018-09-17 10:30 | PT.OTN ---
Current Diagnoses Other abnormalities of gait and mobility (09/17/18) Physical Therapy Treatment Note PT-OP-A Visit Information Start: 07/11/18 13:51 Freq: Status: Active Protocol: Document 09/17/18 10:30 GGD (Rec: 09/17/18 11:43 GGD [email or web address]) Out-Patient Physical Therapy Visit Information Visit Information Visit Type Treatment Note Visit Start Time 10:30 Visit Stop Time 11:25 Total Visit Minutes 55 Visit Number 17 Number of METAL NUMERICAL CONTROL PROGRAMMER Visits 1 Evaluation Information Evaluation Date 07/11/18 PT-OP-B Current Condition Start: 07/11/18 13:51 Freq: Status: Active Protocol: Document 07/11/18 11:15 DCW (Rec: 07/11/18 14:11 DCW [id number]) Current Condition History of Current Condition Onset Date Multi-year history Current Complaints Instability, core weakness, LE weakness, L drop foot, history of falls History of Current Condition Pt is an 82 year old male presenting with a multi-year history of imbalance, falls, and weakness. Pt has been seen at this facility multiple times previously, and admits that my biggest problem is that I have no self-discipline , and I never do what I'm supposed to do unless I'm coming in here. Admits that he has never developed any core strength, even though he knows that it would be a big help. 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 Pt notes that he had previously had drop foot in 2009 following chemo and radiation for prostate cancer, but it eventually went away on its own, and was never as bad as it is now. Pt also notes that he has neuropathy in both feet, but he believes that it has actually been improving, or at least it isn't bothering me as much. Prior Treatments and Tests Prior physical therapy sessions at this facility Treatment Goals Patient/Caregiver Goals Pt wants to improve his stability and core strength, and return to working out at [facility]. PT-OP-C Subjective Start: 07/11/18 13:51 Freq: Status: Active Protocol: Document 09/17/18 10:30 GGD (Rec: 09/17/18 11:43 GGD [email or web address]) OP-PT Subjective Patient Comments Patient Comments Pt states he feels fatigued today. PT-OP-D Balance Start: 07/11/18 13:51 Freq: Status: Active Protocol: Document 07/11/18 11:15 DCW (Rec: 07/11/18 14:11 DCW [id number]) OP-PT Balance Assessment Standing Balance Static Standing Balance Ability Good Dynamic Standing Balance Ability Fair Device Used SPC Balance Tests Garza Balance Test Garza Balance Test Score 49/56 Garza Impairment Rating 1 to 19% Impaired (Score 45-55 ) mCTSIB mCTSIB Position 1 Slight Sway mCTSIB Position 2 Mild Sway mCTSIB Position 3 Mild Sway mCTSIB Position 4 Fall Reaction Garza Balance Assessment Evaluation Sitting to Standing Ability Independent w/out Hands Unsupported Stance Safely- 2 minutes Sitting Unsupported, Feet on Floor Safely- 2 minutes Standing to Sitting Ability Safely, Minimal Hand Use Transfer Ability Safely, Minimal Hand Use Unsupported Stance- Eyes Closed Safely, 10 seconds Unsupported Stance- Eyes Open Independent, 1 minute Reaching Forward Standing Safely, 5 inches Pick- Up Object From Floor Independent/Safe Look Behind Shoulder - Standing Shifts Weight Unilateral Turning 360 Degrees Turns , < 4 secs Unsupported Stance, Alternating Feet on (I)- 8 Steps in 20 secs Stair Unsupported Tandem Stance Holds Tandem- 30 seconds Unilateral Leg Stance Lifts Leg/Unable to Hold Total Score Garza Total Score (out of 56 points) 49 Garza Impairment Rating 1 to 19% Impaired (Score 45-55 ) March Fall Scale Copyright Permission Joaquim ZUNIGA, Joaquim RM, Matias SJ. Development of a scale to identify the fall- prone patient. Can J Aging 1989;8;366-7. Rina March (2009). Preventing patient falls. (2nd ed). [place]: [place]. PT-OP-E Functional Tests Start: 07/11/18 13:51 Freq: Status: Active Protocol: Document 07/11/18 11:15 DCW (Rec: 07/11/18 14:11 DCW [id number]) Functional Tests Dynamic Gait Index (DGI) Score 15/24 DGI Impairment Rating 20 to <40% Impaired (Score 15- 19) PT-OP-M Strength Start: 07/11/18 13:51 Freq: Status: Active Protocol: Document 07/11/18 11:15 DCW (Rec: 07/11/18 14:11 DCW [id number]) Hip Strength Hip Manual Muscle Testing Right Flexion (L2) 4 Good Abduction 4+ Good+ Adduction 4 Good Left Flexion (L2) 4 Good Abduction 4+ Good+ Adduction 4 Good Knee Strength Knee Manual Muscle Testing Right Flexion (S2) 4+ Good+ Extension (L3) 4+ Good+ Left Flexion (S2) 4+ Good+ Extension (L3) 4+ Good+ Ankle/Foot Strength Ankle and Foot Manual Muscle Testing Right Dorsiflexion (L4) 4 Good Plantarflexion (S1) 4- Good- Left Dorsiflexion (L4) 3- Fair- Plantarflexion (S1) 3+ Fair+ PT-OP-Q Treatments Start: 07/11/18 13:51 Freq: Status: Active Protocol: Document 09/17/18 10:30 GGD (Rec: 09/17/18 11:43 GGD [email or web address]) Gym Equipment Shuttle Recovery Unilateral Squats Resistance 75# Shuttle Recovery Platform Stable Reps/Time 2x10 Bilateral Heel Raises Resistance 75# Shuttle Recovery Platform Stable Reps/Time 1x10, 1x8 Bilateral Squats Resistance 125# Shuttle Recovery Platform Stable Reps/Time 2x10 Shuttle Balance Red Comments Wide AGUSTÍN (Perturbations, EO/EC ), Staggered Stance /c Head turns; Rebounder A/P Therapeutic Exercises Supine Exercises Figure 4 stretch Side bilateral Comments Manual Adductor stretch Side bilateral Comments Manual Single KtC Supine Exercise Name Single KtC Side bilateral Comments Manual Hamstring Stretch Supine Exercise Name HS stretch Side bilateral Comments Manual Standing Exercises Leg lift Standing Exercise Name leg lift into horse stirrup Side bilateral Comments L leg step up to 18 step /c 5 # ankle weight Hamstring stretch Standing Exercise Name HS step stretch Side bilateral Resistance stairs Reps/Minutes 60 hold 1 Standing Exercise Name Gastroc stretch Side bilateral Equipment Used EDDIE Reps/Minutes 2X40 PT-OP-R Modalities Start: 07/11/18 13:51 Freq: Status: Active Protocol: Document 09/17/18 10:30 GGD (Rec: 09/17/18 11:43 GGD [email or web address]) Electric Stimulation Electric Stimulation Guyanese Stimulation Body Location L Tib Anterior Duration (Minutes) 10 Intensity 60 Frequency 5 on/5 off Patient Position Sitting Comments Perform with DF PT-OP-T Assessment and Plan Start: 07/11/18 13:51 Freq: Status: Active Protocol: Document 09/17/18 10:30 GGD (Rec: 09/17/18 11:43 GGD [email or web address]) Physical Therapy Assessment Assessment Summary Assessment Pt improving slightly with LE flexibility. He did have increase fatigue with shuttle squats and needed increase in rest breaks. Physical Therapy Plan Frequency and Duration Frequency of Treatment 2x/Week Duration of Treatment 12 weeks Plan of Care Start Date 07/11/18 Plan of Care End Date 10/03/18 Next Visit Focus/Plan Next Note Type Treatment Note Next Visit Plan cont. to advance balance, gait , LLE strengthening
--- NOTE | 2018-09-19 10:32 | PT.OTN ---
Current Diagnoses Other abnormalities of gait and mobility (09/19/18) Physical Therapy Treatment Note PT-OP-A Visit Information Start: 07/11/18 13:51 Freq: Status: Active Protocol: Document 09/19/18 10:32 RCC (Rec: 09/19/18 12:43 RCC [email or web address]) Out-Patient Physical Therapy Visit Information Visit Information Visit Type Treatment Note Visit Start Time 10:32 Visit Stop Time 11:22 Total Visit Minutes 50 Visit Number 18 Number of VIDEO TAPE DUPLICATOR Visits 0 Evaluation Information Evaluation Date 07/11/18 PT-OP-B Current Condition Start: 07/11/18 13:51 Freq: Status: Active Protocol: Document 07/11/18 11:15 DCW (Rec: 07/11/18 14:11 DCW [id number]) Current Condition History of Current Condition Onset Date Multi-year history Current Complaints Instability, core weakness, LE weakness, L drop foot, history of falls History of Current Condition Pt is an 82 year old male presenting with a multi-year history of imbalance, falls, and weakness. Pt has been seen at this facility multiple times previously, and admits that my biggest problem is that I have no self-discipline , and I never do what I'm supposed to do unless I'm coming in here. Admits that he has never developed any core strength, even though he knows that it would be a big help. 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 Pt notes that he had previously had drop foot in 2009 following chemo and radiation for prostate cancer, but it eventually went away on its own, and was never as bad as it is now. Pt also notes that he has neuropathy in both feet, but he believes that it has actually been improving, or at least it isn't bothering me as much. Prior Treatments and Tests Prior physical therapy sessions at this facility Treatment Goals Patient/Caregiver Goals Pt wants to improve his stability and core strength, and return to working out at [facility]. PT-OP-C Subjective Start: 07/11/18 13:51 Freq: Status: Active Protocol: Document 09/19/18 10:32 RCC (Rec: 09/19/18 12:43 RCC [email or web address]) OP-PT Subjective Patient Comments Patient Comments Pt notes that he has had low energy this week. He feels like his diet is good, but just having a hard time doing things in general but is not down. PT-OP-D Balance Start: 07/11/18 13:51 Freq: Status: Active Protocol: Document 07/11/18 11:15 DCW (Rec: 07/11/18 14:11 DCW [id number]) OP-PT Balance Assessment Standing Balance Static Standing Balance Ability Good Dynamic Standing Balance Ability Fair Device Used SPC Balance Tests Garza Balance Test Garza Balance Test Score 49/56 Garza Impairment Rating 1 to 19% Impaired (Score 45-55 ) mCTSIB mCTSIB Position 1 Slight Sway mCTSIB Position 2 Mild Sway mCTSIB Position 3 Mild Sway mCTSIB Position 4 Fall Reaction Garza Balance Assessment Evaluation Sitting to Standing Ability Independent w/out Hands Unsupported Stance Safely- 2 minutes Sitting Unsupported, Feet on Floor Safely- 2 minutes Standing to Sitting Ability Safely, Minimal Hand Use Transfer Ability Safely, Minimal Hand Use Unsupported Stance- Eyes Closed Safely, 10 seconds Unsupported Stance- Eyes Open Independent, 1 minute Reaching Forward Standing Safely, 5 inches Pick- Up Object From Floor Independent/Safe Look Behind Shoulder - Standing Shifts Weight Unilateral Turning 360 Degrees Turns , < 4 secs Unsupported Stance, Alternating Feet on (I)- 8 Steps in 20 secs Stair Unsupported Tandem Stance Holds Tandem- 30 seconds Unilateral Leg Stance Lifts Leg/Unable to Hold Total Score Garza Total Score (out of 56 points) 49 Garza Impairment Rating 1 to 19% Impaired (Score 45-55 ) March Fall Scale Copyright Permission Joaquim ZUNIGA, Joaquim RM, Matias SJ. Development of a scale to identify the fall- prone patient. Can J Aging 1989;8;366-7. Rina March (2009). Preventing patient falls. (2nd ed). [place]: [place]. PT-OP-E Functional Tests Start: 07/11/18 13:51 Freq: Status: Active Protocol: Document 07/11/18 11:15 DCW (Rec: 07/11/18 14:11 DCW [id number]) Functional Tests Dynamic Gait Index (DGI) Score 15/24 DGI Impairment Rating 20 to <40% Impaired (Score 15- 19) PT-OP-M Strength Start: 07/11/18 13:51 Freq: Status: Active Protocol: Document 07/11/18 11:15 DCW (Rec: 07/11/18 14:11 DCW [id number]) Hip Strength Hip Manual Muscle Testing Right Flexion (L2) 4 Good Abduction 4+ Good+ Adduction 4 Good Left Flexion (L2) 4 Good Abduction 4+ Good+ Adduction 4 Good Knee Strength Knee Manual Muscle Testing Right Flexion (S2) 4+ Good+ Extension (L3) 4+ Good+ Left Flexion (S2) 4+ Good+ Extension (L3) 4+ Good+ Ankle/Foot Strength Ankle and Foot Manual Muscle Testing Right Dorsiflexion (L4) 4 Good Plantarflexion (S1) 4- Good- Left Dorsiflexion (L4) 3- Fair- Plantarflexion (S1) 3+ Fair+ PT-OP-Q Treatments Start: 07/11/18 13:51 Freq: Status: Active Protocol: Document 09/19/18 10:32 RCC (Rec: 09/19/18 12:43 [facility] [email or web address]) Cardio Equipment Recumbent Stepper (Sci-Fit) Duration (Minutes) 10 Resistance 4 Gym Equipment Shuttle Balance Red Comments Wide AGUSTÍN (Perturbations, EO/EC ), Staggered Stance /c Head turns; Rebounder A/P Therapeutic Exercises Supine Exercises Figure 4 stretch Side bilateral Comments Manual Adductor stretch Side bilateral Comments Manual Single KtC Supine Exercise Name Single KtC Side bilateral Comments Manual Standing Exercises Hamstring stretch Standing Exercise Name HS step stretch Side bilateral Resistance stairs Reps/Minutes 60 hold Ankle Plantar flexion Standing Exercise Name Ankle PF Equipment Used EDDIE Reps/Minutes X20 PT-OP-R Modalities Start: 07/11/18 13:51 Freq: Status: Active Protocol: Document 09/19/18 10:32 RCC (Rec: 09/19/18 12:43 [facility] [email or web address]) Electric Stimulation Electric Stimulation Finnish Stimulation Body Location L Tib Anterior Duration (Minutes) 10 Intensity 53 Frequency 5 on/5 off Patient Position Sitting Comments Perform with DF PT-OP-T Assessment and Plan Start: 07/11/18 13:51 Freq: Status: Active Protocol: Document 09/19/18 10:32 RCC (Rec: 09/19/18 12:43 [facility] [email or web address]) Physical Therapy Assessment Assessment Summary Assessment Pt remains motivated to participate in physical therapy, and is progressing with his flexibility. Pt was fatigued today with stepper ( Sci-fit), but no increased rest required. Physical Therapy Plan Frequency and Duration Frequency of Treatment 2x/Week Duration of Treatment 12 weeks Plan of Care Start Date 07/11/18 Plan of Care End Date 10/03/18 Next Visit Focus/Plan Next Note Type Treatment Note Next Visit Plan progress LE strength and core stability
--- NOTE | 2018-09-24 12:04 | PT.OTN ---
Current Diagnoses Other abnormalities of gait and mobility (09/24/18) Physical Therapy Treatment Note PT-OP-A Visit Information Start: 07/11/18 13:51 Freq: Status: Active Protocol: Document 09/24/18 11:20 DCW (Rec: 09/24/18 12:04 DCW [id number]) Out-Patient Physical Therapy Visit Information Visit Information Visit Type Treatment Note Visit Start Time 11:20 Visit Stop Time 12:05 Total Visit Minutes 45 Visit Number 18 Number of [employer]IDENT [employer]UTION Visits 0 Evaluation Information Evaluation Date 07/11/18 PT-OP-B Current Condition Start: 07/11/18 13:51 Freq: Status: Active Protocol: Document 07/11/18 11:15 DCW (Rec: 07/11/18 14:11 DCW [id number]) Current Condition History of Current Condition Onset Date Multi-year history Current Complaints Instability, core weakness, LE weakness, L drop foot, history of falls History of Current Condition Pt is an 82 year old male presenting with a multi-year history of imbalance, falls, and weakness. Pt has been seen at this facility multiple times previously, and admits that my biggest problem is that I have no self-discipline , and I never do what I'm supposed to do unless I'm coming in here. Admits that he has never developed any core strength, even though he knows that it would be a big help. 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 Pt notes that he had previously had drop foot in 2009 following chemo and radiation for prostate cancer, but it eventually went away on its own, and was never as bad as it is now. Pt also notes that he has neuropathy in both feet, but he believes that it has actually been improving, or at least it isn't bothering me as much. Prior Treatments and Tests Prior physical therapy sessions at this facility Treatment Goals Patient/Caregiver Goals Pt wants to improve his stability and core strength, and return to working out at [facility]. PT-OP-C Subjective Start: 07/11/18 13:51 Freq: Status: Active Protocol: Document 09/24/18 11:20 DCW (Rec: 09/24/18 12:04 DCW [id number]) OP-PT Subjective Patient Comments Patient Comments Pt reports that he feels like he is getting stronger. PT-OP-D Balance Start: 07/11/18 13:51 Freq: Status: Active Protocol: Document 07/11/18 11:15 DCW (Rec: 07/11/18 14:11 DCW [id number]) OP-PT Balance Assessment Standing Balance Static Standing Balance Ability Good Dynamic Standing Balance Ability Fair Device Used SPC Balance Tests Garza Balance Test Garza Balance Test Score 49/56 Garza Impairment Rating 1 to 19% Impaired (Score 45-55 ) mCTSIB mCTSIB Position 1 Slight Sway mCTSIB Position 2 Mild Sway mCTSIB Position 3 Mild Sway mCTSIB Position 4 Fall Reaction Garza Balance Assessment Evaluation Sitting to Standing Ability Independent w/out Hands Unsupported Stance Safely- 2 minutes Sitting Unsupported, Feet on Floor Safely- 2 minutes Standing to Sitting Ability Safely, Minimal Hand Use Transfer Ability Safely, Minimal Hand Use Unsupported Stance- Eyes Closed Safely, 10 seconds Unsupported Stance- Eyes Open Independent, 1 minute Reaching Forward Standing Safely, 5 inches Pick- Up Object From Floor Independent/Safe Look Behind Shoulder - Standing Shifts Weight Unilateral Turning 360 Degrees Turns , < 4 secs Unsupported Stance, Alternating Feet on (I)- 8 Steps in 20 secs Stair Unsupported Tandem Stance Holds Tandem- 30 seconds Unilateral Leg Stance Lifts Leg/Unable to Hold Total Score Garza Total Score (out of 56 points) 49 Garza Impairment Rating 1 to 19% Impaired (Score 45-55 ) March Fall Scale Copyright Permission Joaquim ZUNIGA, Joaquim RM, Matias SJ. Development of a scale to identify the fall- prone patient. Can J Aging 1989;8;366-7. Rina March (2009). Preventing patient falls. (2nd ed). [place]: [place]. PT-OP-E Functional Tests Start: 07/11/18 13:51 Freq: Status: Active Protocol: Document 07/11/18 11:15 DCW (Rec: 07/11/18 14:11 DCW [id number]) Functional Tests Dynamic Gait Index (DGI) Score 15/24 DGI Impairment Rating 20 to <40% Impaired (Score 15- 19) PT-OP-M Strength Start: 07/11/18 13:51 Freq: Status: Active Protocol: Document 07/11/18 11:15 DCW (Rec: 07/11/18 14:11 DCW [id number]) Hip Strength Hip Manual Muscle Testing Right Flexion (L2) 4 Good Abduction 4+ Good+ Adduction 4 Good Left Flexion (L2) 4 Good Abduction 4+ Good+ Adduction 4 Good Knee Strength Knee Manual Muscle Testing Right Flexion (S2) 4+ Good+ Extension (L3) 4+ Good+ Left Flexion (S2) 4+ Good+ Extension (L3) 4+ Good+ Ankle/Foot Strength Ankle and Foot Manual Muscle Testing Right Dorsiflexion (L4) 4 Good Plantarflexion (S1) 4- Good- Left Dorsiflexion (L4) 3- Fair- Plantarflexion (S1) 3+ Fair+ PT-OP-Q Treatments Start: 07/11/18 13:51 Freq: Status: Active Protocol: Document 09/24/18 11:20 DCW (Rec: 09/24/18 12:04 DCW [id number]) Cardio Equipment Recumbent Stepper (Sci-Fit) Duration (Minutes) 6 Resistance 4 Gym Equipment Shuttle Balance Red Comments Wide AGUSTÍN (Perturbations, EO/EC ), Staggered Stance /c ball toss @ rebounder Therapeutic Exercises Supine Exercises Figure 4 stretch Side bilateral Comments Manual Adductor stretch Side bilateral Comments Manual Single KtC Supine Exercise Name Single KtC Side bilateral Comments Manual Hamstring Stretch Supine Exercise Name HS stretch Side bilateral Comments Manual Standing Exercises Leg lift Standing Exercise Name leg lift into horse stirrup Side bilateral Comments L leg step up to 18 step /c 5 # ankle weight Hamstring stretch Standing Exercise Name HS step stretch Side bilateral Resistance stairs Reps/Minutes 60 hold Ankle Plantar flexion Standing Exercise Name Ankle PF Equipment Used EDDIE Reps/Minutes X20 1 Standing Exercise Name Gastroc stretch Side bilateral Equipment Used EDDIE Reps/Minutes 2X40 PT-OP-R Modalities Start: 07/11/18 13:51 Freq: Status: Active Protocol: Document 09/24/18 11:20 DCW (Rec: 09/24/18 12:04 DCW [id number]) Electric Stimulation Electric Stimulation Beninese Stimulation Body Location L Tib Anterior Duration (Minutes) 10 Intensity 60 Frequency 5 on/5 off Patient Position Sitting Comments Perform with DF PT-OP-T Assessment and Plan Start: 07/11/18 13:51 Freq: Status: Active Protocol: Document 09/24/18 11:20 DCW (Rec: 09/24/18 12:04 DCW [id number]) Physical Therapy Assessment Goals Four Impairment Dynamic Balance Cut Tobacco Bulker Goal (LTG) Pt to score 20/24 on DGI LTG Duration 09/10/18 Three Impairment Drop foot Assisted Goal (LTG) Pt to complete 2 MWT with no instances of drop foot LTG Duration 09/10/18 Two Impairment Activity participation Assisted Goal (LTG) Pt to return to working out safely at [facility] with no balance concerns LTG Duration 09/10/18 One Impairment Pt has been non-compliant with previous home exercise programs Short Term Goal (STG) Pt to be independent and compliant with appropriate HEP STG Duration 08/10/18 Assessment Summary Assessment Pt continues to feel like e- stim is improving his DF, will go riding this week to measure how high his stirrups are for improved training. Physical Therapy Plan Frequency and Duration Frequency of Treatment 2x/Week Duration of Treatment 12 weeks Plan of Care Start Date 07/11/18 Plan of Care End Date 10/03/18 Therapeutic Interventions Therapeutic Interventions Aquatic Therapy Balance Training Gait Training Home Exercise Program Manual Therapy Neuromuscular Re-education Patient/Caregiver Education Self-Care/Home Management Soft Tissue Mobilization Therapeutic Activities Therapeutic Exercises Next Visit Focus/Plan Next Note Type Progress Note Next Visit Plan 10th visit
--- NOTE | 2018-09-26 10:35 | PT.OPPOC ---
Current Diagnoses Other abnormalities of gait and mobility (09/26/18) Provider Visit Care Team Role Provider Type Main St MD Family Provider Non-Staff Primary Care Provider Specialty: Family Practice Address: [address] [place] [address], [address], [place], [address] Email: Karin Hawkins MD Attending Provider Non-Staff Specialty: Neurology Address: [address] [place] [address], [phone] Email: Plan Of Care PT-OP-T Assessment and Plan Start: 07/11/18 13:51 Freq: Status: Active Protocol: Document 09/26/18 10:35 RCC (Rec: 09/26/18 11:49 RCC [email or web address]) Physical Therapy Assessment Goals Four Impairment Dynamic Balance Weatherization Crew Leader Goal (LTG) Pt to score 20/24 on DGI -09/26/18: LTG Duration 11/21/18 Three Impairment Drop foot Weatherization Crew Leader Goal (LTG) Pt to complete 2 MWT with no instances of drop foot LTG Duration 11/21/18 Two Impairment Activity participation Skilled Nursing Goal (LTG) Pt to return to working out safely at [facility] with no balance concerns -no change LTG Duration 11/21/18 One Impairment Pt has been non-compliant with previous home exercise programs Short Term Goal (STG) Pt to be independent and compliant with appropriate HEP -performing >50% of HEP daily STG Duration 10/24/18 Progress Towards Goals Progress Towards Goals Slow Progress due to Activity Tolerance Slow Progress due to Noncompliance Progress Comments Pt with improved Dynamic Gait Index score to 19/24 from 15/ 24 on initial evaluation, performing >50% of HEP daily. Assessment Summary Assessment Pt demonstrated improved Dynamic Gait Index score to 19 /24, improved from 15/24 on initial examination. Pt still at risk for falls, and continues to have L ankle DF weakness causing foot slap occasionally with ambulation especially when not ambulating without his SPC. Pt remains motivated to participate in physical therapy, but lacks motivation outside of treatments sessions to progress toward indep. gym routine. Pt would benefit from continued skilled physical therapy to progress his balance, gait, safety with progression of recreational activities, and to continue to promote improved compliance with HEP. Physical Therapy Plan Frequency and Duration Frequency of Treatment 2x/Week Duration of Treatment 8 weeks Plan of Care Start Date 09/26/18 Plan of Care End Date 11/21/18 Therapeutic Interventions Therapeutic Interventions Aquatic Therapy Balance Training Gait Training Home Exercise Program Manual Therapy Neuromuscular Re-education Patient/Caregiver Education Self-Care/Home Management Soft Tissue Mobilization Therapeutic Activities Therapeutic Exercises Modalities Cold Pack/Ice Massage Electric Stimulation Hot Packs Next Visit Focus/Plan Next Note Type Treatment Note Next Visit Plan prog. gait, standing balance, flexibility. Plan of Care Dates Plan of Care Start Date 09/26/18 Plan of Care End Date 11/21/18 Please Sign and Return: I have reviewed this Plan of Care and certify that the skilled therapy services above are required to meet the patient?s needs. Physician Signature Date Printed Name and Credentials Clinical Instructor Signature Printed Name and Credentials
--- NOTE | 2018-09-26 10:35 | PT.OTN ---
Current Diagnoses Other abnormalities of gait and mobility (09/26/18) Physical Therapy Treatment Note PT-OP-A Visit Information Start: 07/11/18 13:51 Freq: Status: Active Protocol: Document 09/26/18 10:35 RCC (Rec: 09/26/18 11:49 RCC [email or web address]) Out-Patient Physical Therapy Visit Information Visit Information Visit Type Treatment Note Visit Start Time 10:35 Visit Stop Time 11:20 Total Visit Minutes 45 Visit Number 19 Number of ICE CREAM FREEZER ASSISTANT Visits 0 Evaluation Information Evaluation Date 07/11/18 PT-OP-B Current Condition Start: 07/11/18 13:51 Freq: Status: Active Protocol: Document 07/11/18 11:15 DCW (Rec: 07/11/18 14:11 DCW [id number]) Current Condition History of Current Condition Onset Date Multi-year history Current Complaints Instability, core weakness, LE weakness, L drop foot, history of falls History of Current Condition Pt is an 82 year old male presenting with a multi-year history of imbalance, falls, and weakness. Pt has been seen at this facility multiple times previously, and admits that my biggest problem is that I have no self-discipline , and I never do what I'm supposed to do unless I'm coming in here. Admits that he has never developed any core strength, even though he knows that it would be a big help. 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 Pt notes that he had previously had drop foot in 2009 following chemo and radiation for prostate cancer, but it eventually went away on its own, and was never as bad as it is now. Pt also notes that he has neuropathy in both feet, but he believes that it has actually been improving, or at least it isn't bothering me as much. Prior Treatments and Tests Prior physical therapy sessions at this facility Treatment Goals Patient/Caregiver Goals Pt wants to improve his stability and core strength, and return to working out at [facility]. PT-OP-C Subjective Start: 07/11/18 13:51 Freq: Status: Active Protocol: Document 09/26/18 10:35 RCC (Rec: 09/26/18 11:49 RCC [email or web address]) OP-PT Subjective Patient Comments Patient Comments Pt states his energy is back a little bit this week, he was able to go horseback riding Sunday but his legs felt a little rubbery. PT-OP-D Balance Start: 07/11/18 13:51 Freq: Status: Active Protocol: Document 07/11/18 11:15 DCW (Rec: 07/11/18 14:11 DCW [id number]) OP-PT Balance Assessment Standing Balance Static Standing Balance Ability Good Dynamic Standing Balance Ability Fair Device Used SPC Balance Tests Garza Balance Test Garza Balance Test Score 49/56 Garza Impairment Rating 1 to 19% Impaired (Score 45-55 ) mCTSIB mCTSIB Position 1 Slight Sway mCTSIB Position 2 Mild Sway mCTSIB Position 3 Mild Sway mCTSIB Position 4 Fall Reaction Garza Balance Assessment Evaluation Sitting to Standing Ability Independent w/out Hands Unsupported Stance Safely- 2 minutes Sitting Unsupported, Feet on Floor Safely- 2 minutes Standing to Sitting Ability Safely, Minimal Hand Use Transfer Ability Safely, Minimal Hand Use Unsupported Stance- Eyes Closed Safely, 10 seconds Unsupported Stance- Eyes Open Independent, 1 minute Reaching Forward Standing Safely, 5 inches Pick- Up Object From Floor Independent/Safe Look Behind Shoulder - Standing Shifts Weight Unilateral Turning 360 Degrees Turns , < 4 secs Unsupported Stance, Alternating Feet on (I)- 8 Steps in 20 secs Stair Unsupported Tandem Stance Holds Tandem- 30 seconds Unilateral Leg Stance Lifts Leg/Unable to Hold Total Score Garza Total Score (out of 56 points) 49 Garza Impairment Rating 1 to 19% Impaired (Score 45-55 ) March Fall Scale Copyright Permission Joaquim ZUNIGA, Joaquim RM, Matias SJ. Development of a scale to identify the fall- prone patient. Can J Aging 1989;8;366-7. Rina March (2009). Preventing patient falls. (2nd ed). [place]: [place]. PT-OP-E Functional Tests Start: 07/11/18 13:51 Freq: Status: Active Protocol: Document 09/26/18 10:35 RCC (Rec: 09/26/18 11:49 RCC [email or web address]) Functional Tests Dynamic Gait Index (DGI) Score 19 DGI Impairment Rating 20 to <40% Impaired (Score 15- 19) PT-OP-M Strength Start: 07/11/18 13:51 Freq: Status: Active Protocol: Document 09/26/18 10:35 RCC (Rec: 09/26/18 11:49 RCC [email or web address]) Ankle/Foot Strength Ankle and Foot Manual Muscle Testing Right Dorsiflexion (L4) 4 Good Plantarflexion (S1) 4 Good Left Dorsiflexion (L4) 3- Fair- Plantarflexion (S1) 4 Good PT-OP-Q Treatments Start: 07/11/18 13:51 Freq: Status: Active Protocol: Document 09/26/18 10:35 RCC (Rec: 09/26/18 11:49 RCC [email or web address]) Gym Equipment Shuttle Balance Red Comments Wide AGUSTÍN (Perturbations, EO/EC ), Staggered Stance /c ball toss @ rebounder Therapeutic Exercises Supine Exercises Figure 4 stretch Side bilateral Comments Manual Single KtC Supine Exercise Name Single KtC Side bilateral Comments Manual Hamstring Stretch Supine Exercise Name HS stretch Side bilateral Comments Manual Standing Exercises Leg lift Standing Exercise Name leg lift into horse stirrup Side bilateral Reps/Minutes 10 each Comments L leg step up to 30 step Ankle Plantar flexion Standing Exercise Name Ankle PF Equipment Used EDDIE Reps/Minutes X20 Therapeutic Activity Therapeutic Activity DGI Name Dynamic Gait Index Reps/Minutes 10 min PT-OP-R Modalities Start: 07/11/18 13:51 Freq: Status: Active Protocol: Document 09/26/18 10:35 RCC (Rec: 09/26/18 11:49 RCC [email or web address]) Electric Stimulation Electric Stimulation Thai Stimulation Body Location L Tib Anterior Duration (Minutes) 10 Intensity 70 Frequency 10 on/10 off Patient Position Sitting Comments Perform with DF PT-OP-T Assessment and Plan Start: 07/11/18 13:51 Freq: Status: Active Protocol: Document 09/26/18 10:35 RCC (Rec: 09/26/18 11:49 [facility] [email or web address]) Physical Therapy Assessment Goals Four Impairment Dynamic Balance Senior Accounts Payable Clerk Goal (LTG) Pt to score 20/24 on DGI -09/26/18: 19/24 LTG Duration 11/21/18 Three Impairment Drop foot Group Home Goal (LTG) Pt to complete 2 MWT with no instances of drop foot LTG Duration 11/21/18 Two Impairment Activity participation Group Home Goal (LTG) Pt to return to working out safely at [facility] with no balance concerns -no change LTG Duration 11/21/18 One Impairment Pt has been non-compliant with previous home exercise programs Short Term Goal (STG) Pt to be independent and compliant with appropriate HEP -performing >50% of HEP daily STG Duration 10/24/18 Progress Towards Goals Progress Towards Goals Slow Progress due to Activity Tolerance Slow Progress due to Noncompliance Progress Comments Pt with improved Dynamic Gait Index score to from on initial evaluation, performing >50% of HEP daily. Assessment Summary Assessment Pt demonstrated improved Dynamic Gait Index score to , improved from on initial examination. Pt still at risk for falls, and continues to have L ankle DF weakness causing foot slap occasionally with ambulation especially when not ambulating without his SPC. Pt remains motivated to participate in physical therapy, but lacks motivation outside of treatments sessions to progress toward indep. gym routine. Pt would benefit from continued skilled physical therapy to progress his balance, gait, safety with progression of recreational activities, and to continue to promote improved compliance with HEP. Physical Therapy Plan Frequency and Duration Frequency of Treatment 2x/Week Duration of Treatment 8 weeks Plan of Care Start Date 09/26/18 Plan of Care End Date 11/21/18 Therapeutic Interventions Therapeutic Interventions Aquatic Therapy Balance Training Gait Training Home Exercise Program Manual Therapy Neuromuscular Re-education Patient/Caregiver Education Self-Care/Home Management Soft Tissue Mobilization Therapeutic Activities Therapeutic Exercises Modalities Cold Pack/Ice Massage Electric Stimulation Hot Packs Next Visit Focus/Plan Next Note Type Treatment Note Next Visit Plan prog. gait, standing balance, flexibility.
--- NOTE | 2018-10-01 14:05 | PT.OTN ---
Current Diagnoses Other abnormalities of gait and mobility (10/01/18) Physical Therapy Treatment Note PT-OP-A Visit Information Start: 07/11/18 13:51 Freq: Status: Active Protocol: Document 10/01/18 14:01 GGD (Rec: 10/01/18 14:05 GGD [email or web address]) Out-Patient Physical Therapy Visit Information Visit Information Visit Type Treatment Note Visit Start Time 10:30 Visit Stop Time 11:20 Total Visit Minutes 50 Visit Number 20 Number of INSET CUTTER Visits 1 Evaluation Information Evaluation Date 07/11/18 PT-OP-B Current Condition Start: 07/11/18 13:51 Freq: Status: Active Protocol: Document 07/11/18 11:15 DCW (Rec: 07/11/18 14:11 DCW [id number]) Current Condition History of Current Condition Onset Date Multi-year history Current Complaints Instability, core weakness, LE weakness, L drop foot, history of falls History of Current Condition Pt is an 82 year old male presenting with a multi-year history of imbalance, falls, and weakness. Pt has been seen at this facility multiple times previously, and admits that my biggest problem is that I have no self-discipline , and I never do what I'm supposed to do unless I'm coming in here. Admits that he has never developed any core strength, even though he knows that it would be a big help. 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 Pt notes that he had previously had drop foot in 2009 following chemo and radiation for prostate cancer, but it eventually went away on its own, and was never as bad as it is now. Pt also notes that he has neuropathy in both feet, but he believes that it has actually been improving, or at least it isn't bothering me as much. Prior Treatments and Tests Prior physical therapy sessions at this facility Treatment Goals Patient/Caregiver Goals Pt wants to improve his stability and core strength, and return to working out at [facility]. PT-OP-C Subjective Start: 07/11/18 13:51 Freq: Status: Active Protocol: Document 10/01/18 14:01 GGD (Rec: 10/01/18 14:05 GGD [email or web address]) OP-PT Subjective Patient Comments Patient Comments Pt states he feels tired today . PT-OP-D Balance Start: 07/11/18 13:51 Freq: Status: Active Protocol: Document 07/11/18 11:15 DCW (Rec: 07/11/18 14:11 DCW [id number]) OP-PT Balance Assessment Standing Balance Static Standing Balance Ability Good Dynamic Standing Balance Ability Fair Device Used SPC Balance Tests Garza Balance Test Garza Balance Test Score 49/56 Garza Impairment Rating 1 to 19% Impaired (Score 45-55 ) mCTSIB mCTSIB Position 1 Slight Sway mCTSIB Position 2 Mild Sway mCTSIB Position 3 Mild Sway mCTSIB Position 4 Fall Reaction Garza Balance Assessment Evaluation Sitting to Standing Ability Independent w/out Hands Unsupported Stance Safely- 2 minutes Sitting Unsupported, Feet on Floor Safely- 2 minutes Standing to Sitting Ability Safely, Minimal Hand Use Transfer Ability Safely, Minimal Hand Use Unsupported Stance- Eyes Closed Safely, 10 seconds Unsupported Stance- Eyes Open Independent, 1 minute Reaching Forward Standing Safely, 5 inches Pick- Up Object From Floor Independent/Safe Look Behind Shoulder - Standing Shifts Weight Unilateral Turning 360 Degrees Turns , < 4 secs Unsupported Stance, Alternating Feet on (I)- 8 Steps in 20 secs Stair Unsupported Tandem Stance Holds Tandem- 30 seconds Unilateral Leg Stance Lifts Leg/Unable to Hold Total Score Garza Total Score (out of 56 points) 49 Garza Impairment Rating 1 to 19% Impaired (Score 45-55 ) March Fall Scale Copyright Permission Joaquim ZUNIGA, Joaquim RM, Matias SJ. Development of a scale to identify the fall- prone patient. Can J Aging 1989;8;366-7. Rina March (2009). Preventing patient falls. (2nd ed). [place]: [place]. PT-OP-E Functional Tests Start: 07/11/18 13:51 Freq: Status: Active Protocol: Document 09/26/18 10:35 RCC (Rec: 09/26/18 11:49 RCC [email or web address]) Functional Tests Dynamic Gait Index (DGI) Score 19 DGI Impairment Rating 20 to <40% Impaired (Score 15- 19) PT-OP-M Strength Start: 07/11/18 13:51 Freq: Status: Active Protocol: Document 09/26/18 10:35 RCC (Rec: 09/26/18 11:49 RCC [email or web address]) Ankle/Foot Strength Ankle and Foot Manual Muscle Testing Right Dorsiflexion (L4) 4 Good Plantarflexion (S1) 4 Good Left Dorsiflexion (L4) 3- Fair- Plantarflexion (S1) 4 Good PT-OP-Q Treatments Start: 07/11/18 13:51 Freq: Status: Active Protocol: Document 10/01/18 14:01 GGD (Rec: 10/01/18 14:05 GGD [email or web address]) Gym Equipment Shuttle Balance Red Comments Wide AGUSTÍN (Perturbations, EO/EC ), Staggered Stance /c ball toss @ rebounder Therapeutic Exercises Supine Exercises Figure 4 stretch Side bilateral Comments Manual Single KtC Supine Exercise Name Single KtC Side bilateral Comments Manual Hamstring Stretch Supine Exercise Name HS stretch Side bilateral Comments Manual Standing Exercises Leg lift Standing Exercise Name leg lift into horse stirrup Side bilateral Reps/Minutes 10 each Comments L leg step up to 30 step Ankle Plantar flexion Standing Exercise Name Ankle PF Equipment Used EDDIE Reps/Minutes X20 1 Standing Exercise Name Gastroc stretch Side bilateral Equipment Used EDDIE Reps/Minutes 2X40 PT-OP-R Modalities Start: 07/11/18 13:51 Freq: Status: Active Protocol: Document 10/01/18 14:01 GGD (Rec: 10/01/18 14:05 GGD [email or web address]) Electric Stimulation Electric Stimulation Fijian Stimulation Body Location L Tib Anterior Duration (Minutes) 10 Intensity 70 Frequency 10 on/10 off Patient Position Sitting Comments Perform with DF PT-OP-T Assessment and Plan Start: 07/11/18 13:51 Freq: Status: Active Protocol: Document 10/01/18 14:01 GGD (Rec: 10/01/18 14:05 GGD [email or web address]) Physical Therapy Assessment Assessment Summary Assessment Pt fatigue quickly with hip flexion. He is improving with his balance and flexibility Physical Therapy Plan Frequency and Duration Frequency of Treatment 2x/Week Duration of Treatment 8 weeks Plan of Care Start Date 09/26/18 Plan of Care End Date 11/21/18 Next Visit Focus/Plan Next Note Type Treatment Note Next Visit Plan prog. gait, standing balance, flexibility.
--- NOTE | 2018-10-03 10:35 | PT.OTN ---
Current Diagnoses Other abnormalities of gait and mobility (10/03/18) Physical Therapy Treatment Note PT-OP-A Visit Information Start: 07/11/18 13:51 Freq: Status: Active Protocol: Document 10/03/18 09:53 [facility] (Rec: 10/03/18 10:34 [facility] [id number]) Out-Patient Physical Therapy Visit Information Visit Information Visit Type Treatment Note Visit Start Time 09:45 Visit Stop Time 10:35 Total Visit Minutes 50 Visit Number 21 Number of HEALTH CENTER ASSOCIATE Visits 1 PT-OP-B Current Condition Start: 07/11/18 13:51 Freq: Status: Active Protocol: Document 07/11/18 11:15 DCW (Rec: 07/11/18 14:11 DCW [id number]) Current Condition History of Current Condition Onset Date Multi-year history Current Complaints Instability, core weakness, LE weakness, L drop foot, history of falls History of Current Condition Pt is an 82 year old male presenting with a multi-year history of imbalance, falls, and weakness. Pt has been seen at this facility multiple times previously, and admits that my biggest problem is that I have no self-discipline , and I never do what I'm supposed to do unless I'm coming in here. Admits that he has never developed any core strength, even though he knows that it would be a big help. 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 Pt notes that he had previously had drop foot in 2009 following chemo and radiation for prostate cancer, but it eventually went away on its own, and was never as bad as it is now. Pt also notes that he has neuropathy in both feet, but he believes that it has actually been improving, or at least it isn't bothering me as much. Prior Treatments and Tests Prior physical therapy sessions at this facility Treatment Goals Patient/Caregiver Goals Pt wants to improve his stability and core strength, and return to working out at [facility]. PT-OP-C Subjective Start: 07/11/18 13:51 Freq: Status: Active Protocol: Document 10/03/18 09:53 [facility] (Rec: 10/03/18 10:34 [facility] [id number]) OP-PT Subjective Patient Comments Patient Comments Pt brought in strap he plans to use to get onto the horse. He plans to put his right foot into the strap then left into the stirup PT-OP-D Balance Start: 07/11/18 13:51 Freq: Status: Active Protocol: Document 07/11/18 11:15 DCW (Rec: 07/11/18 14:11 DCW [id number]) OP-PT Balance Assessment Standing Balance Static Standing Balance Ability Good Dynamic Standing Balance Ability Fair Device Used SPC Balance Tests Garza Balance Test Garza Balance Test Score 49/56 Garza Impairment Rating 1 to 19% Impaired (Score 45-55 ) mCTSIB mCTSIB Position 1 Slight Sway mCTSIB Position 2 Mild Sway mCTSIB Position 3 Mild Sway mCTSIB Position 4 Fall Reaction Garza Balance Assessment Evaluation Sitting to Standing Ability Independent w/out Hands Unsupported Stance Safely- 2 minutes Sitting Unsupported, Feet on Floor Safely- 2 minutes Standing to Sitting Ability Safely, Minimal Hand Use Transfer Ability Safely, Minimal Hand Use Unsupported Stance- Eyes Closed Safely, 10 seconds Unsupported Stance- Eyes Open Independent, 1 minute Reaching Forward Standing Safely, 5 inches Pick- Up Object From Floor Independent/Safe Look Behind Shoulder - Standing Shifts Weight Unilateral Turning 360 Degrees Turns , < 4 secs Unsupported Stance, Alternating Feet on (I)- 8 Steps in 20 secs Stair Unsupported Tandem Stance Holds Tandem- 30 seconds Unilateral Leg Stance Lifts Leg/Unable to Hold Total Score Garza Total Score (out of 56 points) 49 Garza Impairment Rating 1 to 19% Impaired (Score 45-55 ) March Fall Scale Copyright Permission Joaquim ZUNIGA, Joaquim RM, Matias SJ. Development of a scale to identify the fall- prone patient. Can J Aging 1989;8;366-7. Rina March (2009). Preventing patient falls. (2nd ed). [place]: [place]. PT-OP-E Functional Tests Start: 07/11/18 13:51 Freq: Status: Active Protocol: Document 09/26/18 10:35 RCC (Rec: 09/26/18 11:49 RCC [email or web address]) Functional Tests Dynamic Gait Index (DGI) Score 19 DGI Impairment Rating 20 to <40% Impaired (Score 15- 19) PT-OP-M Strength Start: 07/11/18 13:51 Freq: Status: Active Protocol: Document 09/26/18 10:35 RCC (Rec: 09/26/18 11:49 RCC [email or web address]) Ankle/Foot Strength Ankle and Foot Manual Muscle Testing Right Dorsiflexion (L4) 4 Good Plantarflexion (S1) 4 Good Left Dorsiflexion (L4) 3- Fair- Plantarflexion (S1) 4 Good PT-OP-Q Treatments Start: 07/11/18 13:51 Freq: Status: Active Protocol: Document 10/03/18 09:53 [facility] (Rec: 10/03/18 10:34 [facility] [id number]) Cardio Equipment Recumbent Bicycle Duration (Minutes) 6 Resistance 5 Seat Position 6 Therapeutic Exercises Supine Exercises alt marching Supine Exercise Name alt marching Side bilateral Figure 4 stretch Side bilateral Comments Manual Adductor stretch Side bilateral Comments Manual Single KtC Supine Exercise Name Single KtC Side bilateral Comments Manual c/r Hamstring Stretch Supine Exercise Name HS stretch Side bilateral Comments Manual c/r Neuro Re-Education Treatment Balance Activities Anthony Details w/leg fwd then w/leg back then with alt Reps/Duration 20ft eac Comments low leg 1st then high leg drives after PT-OP-R Modalities Start: 07/11/18 13:51 Freq: Status: Active Protocol: Document 10/03/18 09:53 [facility] (Rec: 10/03/18 10:34 [facility] [id number]) Electric Stimulation Electric Stimulation Algerian Stimulation Body Location L Tib Anterior Duration (Minutes) 10 Intensity 88 Frequency 10 on/10 off Patient Position Sitting Comments Perform with DF PT-OP-T Assessment and Plan Start: 07/11/18 13:51 Freq: Status: Active Protocol: Document 10/03/18 09:53 [facility] (Rec: 10/03/18 10:34 [facility] [id number]) Physical Therapy Assessment Goals Four Impairment Dynamic Balance Broadcast Designer Goal (LTG) Pt to score 20/24 on DGI -09/26/18: 19/24 LTG Duration 11/21/18 Three Impairment Drop foot Broadcast Designer Goal (LTG) Pt to complete 2 MWT with no instances of drop foot LTG Duration 11/21/18 Two Impairment Activity participation Half-Way Goal (LTG) Pt to return to working out safely at [facility] with no balance concerns -no change LTG Duration 11/21/18 One Impairment Pt has been non-compliant with previous home exercise programs Short Term Goal (STG) Pt to be independent and compliant with appropriate HEP -performing >50% of HEP daily STG Duration 10/24/18 Assessment Summary Assessment Pt improved flexibility with C /R stretch and was challenged by working on strength with alt marching with driving knee towards chest. He was able to do grapevine exercises with min difficulty. Physical Therapy Plan Frequency and Duration Frequency of Treatment 2x/Week Duration of Treatment 8 weeks Plan of Care Start Date 09/26/18 Plan of Care End Date 11/21/18 Next Visit Focus/Plan Next Note Type Treatment Note Next Visit Plan cont to advance balance and gait; grapevine w/squat
--- NOTE | 2018-10-15 11:22 | PT.OTN ---
Current Diagnoses Other abnormalities of gait and mobility (10/15/18) Physical Therapy Treatment Note PT-OP-A Visit Information Start: 07/11/18 13:51 Freq: Status: Active Protocol: Document 10/15/18 10:30 GGD (Rec: 10/15/18 11:20 GGD [email or web address]) Out-Patient Physical Therapy Visit Information Visit Information Visit Type Treatment Note Visit Start Time 10:30 Visit Stop Time 11:20 Total Visit Minutes 50 Visit Number 22 Number of RADIAL ROUTER OPERATOR Visits 1 Evaluation Information Evaluation Date 07/11/18 PT-OP-B Current Condition Start: 07/11/18 13:51 Freq: Status: Active Protocol: Document 07/11/18 11:15 DCW (Rec: 07/11/18 14:11 DCW [id number]) Current Condition History of Current Condition Onset Date Multi-year history Current Complaints Instability, core weakness, LE weakness, L drop foot, history of falls History of Current Condition Pt is an 82 year old male presenting with a multi-year history of imbalance, falls, and weakness. Pt has been seen at this facility multiple times previously, and admits that my biggest problem is that I have no self-discipline , and I never do what I'm supposed to do unless I'm coming in here. Admits that he has never developed any core strength, even though he knows that it would be a big help. 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 Pt notes that he had previously had drop foot in 2009 following chemo and radiation for prostate cancer, but it eventually went away on its own, and was never as bad as it is now. Pt also notes that he has neuropathy in both feet, but he believes that it has actually been improving, or at least it isn't bothering me as much. Prior Treatments and Tests Prior physical therapy sessions at this facility Treatment Goals Patient/Caregiver Goals Pt wants to improve his stability and core strength, and return to working out at [facility]. PT-OP-C Subjective Start: 07/11/18 13:51 Freq: Status: Active Protocol: Document 10/15/18 10:30 GGD (Rec: 10/15/18 11:20 GGD [email or web address]) OP-PT Subjective Patient Comments Patient Comments Pt states he didn't do much the last week with the snow. PT-OP-D Balance Start: 07/11/18 13:51 Freq: Status: Active Protocol: Document 07/11/18 11:15 DCW (Rec: 07/11/18 14:11 DCW [id number]) OP-PT Balance Assessment Standing Balance Static Standing Balance Ability Good Dynamic Standing Balance Ability Fair Device Used SPC Balance Tests Garza Balance Test Garza Balance Test Score 49/56 Garza Impairment Rating 1 to 19% Impaired (Score 45-55 ) mCTSIB mCTSIB Position 1 Slight Sway mCTSIB Position 2 Mild Sway mCTSIB Position 3 Mild Sway mCTSIB Position 4 Fall Reaction Garza Balance Assessment Evaluation Sitting to Standing Ability Independent w/out Hands Unsupported Stance Safely- 2 minutes Sitting Unsupported, Feet on Floor Safely- 2 minutes Standing to Sitting Ability Safely, Minimal Hand Use Transfer Ability Safely, Minimal Hand Use Unsupported Stance- Eyes Closed Safely, 10 seconds Unsupported Stance- Eyes Open Independent, 1 minute Reaching Forward Standing Safely, 5 inches Pick- Up Object From Floor Independent/Safe Look Behind Shoulder - Standing Shifts Weight Unilateral Turning 360 Degrees Turns , < 4 secs Unsupported Stance, Alternating Feet on (I)- 8 Steps in 20 secs Stair Unsupported Tandem Stance Holds Tandem- 30 seconds Unilateral Leg Stance Lifts Leg/Unable to Hold Total Score Garza Total Score (out of 56 points) 49 Garza Impairment Rating 1 to 19% Impaired (Score 45-55 ) March Fall Scale Copyright Permission Joaquim ZUNIGA, Joaquim RM, Matias SJ. Development of a scale to identify the fall- prone patient. Can J Aging 1989;8;366-7. Rina March (2009). Preventing patient falls. (2nd ed). [place]: [place]. PT-OP-E Functional Tests Start: 07/11/18 13:51 Freq: Status: Active Protocol: Document 09/26/18 10:35 RCC (Rec: 09/26/18 11:49 RCC [email or web address]) Functional Tests Dynamic Gait Index (DGI) Score 19 DGI Impairment Rating 20 to <40% Impaired (Score 15- 19) PT-OP-M Strength Start: 07/11/18 13:51 Freq: Status: Active Protocol: Document 09/26/18 10:35 RCC (Rec: 09/26/18 11:49 RCC [email or web address]) Ankle/Foot Strength Ankle and Foot Manual Muscle Testing Right Dorsiflexion (L4) 4 Good Plantarflexion (S1) 4 Good Left Dorsiflexion (L4) 3- Fair- Plantarflexion (S1) 4 Good PT-OP-Q Treatments Start: 07/11/18 13:51 Freq: Status: Active Protocol: Document 10/15/18 10:30 GGD (Rec: 10/15/18 11:22 GGD [email or web address]) Cardio Equipment Recumbent Bicycle Duration (Minutes) 6 Resistance 5 Seat Position 6 Gym Equipment Shuttle Balance Red Comments Wide AGUSTÍN (Perturbations, EO/EC ), Staggered Stance Therapeutic Exercises Supine Exercises alt marching Supine Exercise Name alt marching Side bilateral Figure 4 stretch Side bilateral Comments Manual Adductor stretch Side bilateral Comments Manual Single KtC Supine Exercise Name Single KtC Side bilateral Comments Manual Hamstring Stretch Supine Exercise Name HS stretch Side bilateral Comments Manual c/r Standing Exercises Ankle Plantar flexion Standing Exercise Name Ankle PF Equipment Used EDDIE Reps/Minutes X20 1 Standing Exercise Name Gastroc stretch Side bilateral Equipment Used EDDIE Reps/Minutes 2X40 Neuro Re-Education Treatment Balance Activities [place] Details w/leg fwd then w/leg back then with alt Reps/Duration 20ft eac Comments low leg 1st then high leg drives after PT-OP-R Modalities Start: 07/11/18 13:51 Freq: Status: Active Protocol: Document 10/15/18 10:30 GGD (Rec: 10/15/18 11:20 GGD [email or web address]) Electric Stimulation Electric Stimulation [facility] Body Location L Tib Anterior Duration (Minutes) 10 Intensity 88 Frequency 10 on/10 off Patient Position Sitting Comments Perform with DF PT-OP-T Assessment and Plan Start: 07/11/18 13:51 Freq: Status: Active Protocol: Document 10/15/18 10:30 GGD (Rec: 10/15/18 11:20 GGD [email or web address]) Physical Therapy Assessment Assessment Summary Assessment Pt improved with balance and strength. He had decrease in hamstring flexibility after decrease in activity and missed PT appointments due to snow. Physical Therapy Plan Frequency and Duration Frequency of Treatment 2x/Week Duration of Treatment 8 weeks Plan of Care Start Date 09/26/18 Plan of Care End Date 11/21/18 Next Visit Focus/Plan Next Note Type Treatment Note Next Visit Plan cont to advance flexibility, balance and gait;
--- NOTE | 2018-10-17 14:32 | PT.OTN ---
Current Diagnoses Other abnormalities of gait and mobility (10/17/18) Physical Therapy Treatment Note PT-OP-A Visit Information Start: 07/11/18 13:51 Freq: Status: Active Protocol: Document 10/17/18 14:32 RCC (Rec: 10/18/18 13:32 RCC [email or web address]) Out-Patient Physical Therapy Visit Information Visit Information Visit Type Treatment Note Visit Start Time 14:32 Visit Stop Time 15:21 Total Visit Minutes 49 Visit Number 23 Number of GOLF BALL COVER TREATER Visits 0 Evaluation Information Evaluation Date 07/11/18 PT-OP-B Current Condition Start: 07/11/18 13:51 Freq: Status: Active Protocol: Document 07/11/18 11:15 DCW (Rec: 07/11/18 14:11 DCW [id number]) Current Condition History of Current Condition Onset Date Multi-year history Current Complaints Instability, core weakness, LE weakness, L drop foot, history of falls History of Current Condition Pt is an 82 year old male presenting with a multi-year history of imbalance, falls, and weakness. Pt has been seen at this facility multiple times previously, and admits that my biggest problem is that I have no self-discipline , and I never do what I'm supposed to do unless I'm coming in here. Admits that he has never developed any core strength, even though he knows that it would be a big help. 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 Pt notes that he had previously had drop foot in 2009 following chemo and radiation for prostate cancer, but it eventually went away on its own, and was never as bad as it is now. Pt also notes that he has neuropathy in both feet, but he believes that it has actually been improving, or at least it isn't bothering me as much. Prior Treatments and Tests Prior physical therapy sessions at this facility Treatment Goals Patient/Caregiver Goals Pt wants to improve his stability and core strength, and return to working out at [facility]. PT-OP-C Subjective Start: 07/11/18 13:51 Freq: Status: Active Protocol: Document 10/17/18 14:32 RCC (Rec: 10/18/18 13:32 RCC [email or web address]) OP-PT Subjective Patient Comments Patient Comments Pt reports he was shocked that he was so stiff at his last appointment due to not coming to PT for 2 weeks. PT-OP-D Balance Start: 07/11/18 13:51 Freq: Status: Active Protocol: Document 07/11/18 11:15 DCW (Rec: 07/11/18 14:11 DCW [id number]) OP-PT Balance Assessment Standing Balance Static Standing Balance Ability Good Dynamic Standing Balance Ability Fair Device Used SPC Balance Tests Garza Balance Test Garza Balance Test Score 49/56 Garza Impairment Rating 1 to 19% Impaired (Score 45-55 ) mCTSIB mCTSIB Position 1 Slight Sway mCTSIB Position 2 Mild Sway mCTSIB Position 3 Mild Sway mCTSIB Position 4 Fall Reaction Garza Balance Assessment Evaluation Sitting to Standing Ability Independent w/out Hands Unsupported Stance Safely- 2 minutes Sitting Unsupported, Feet on Floor Safely- 2 minutes Standing to Sitting Ability Safely, Minimal Hand Use Transfer Ability Safely, Minimal Hand Use Unsupported Stance- Eyes Closed Safely, 10 seconds Unsupported Stance- Eyes Open Independent, 1 minute Reaching Forward Standing Safely, 5 inches Pick- Up Object From Floor Independent/Safe Look Behind Shoulder - Standing Shifts Weight Unilateral Turning 360 Degrees Turns , < 4 secs Unsupported Stance, Alternating Feet on (I)- 8 Steps in 20 secs Stair Unsupported Tandem Stance Holds Tandem- 30 seconds Unilateral Leg Stance Lifts Leg/Unable to Hold Total Score Garza Total Score (out of 56 points) 49 Garza Impairment Rating 1 to 19% Impaired (Score 45-55 ) March Fall Scale Copyright Permission Joaquim ZUNIGA, Joaquim RM, Matias SJ. Development of a scale to identify the fall- prone patient. Can J Aging 1989;8;366-7. Rina March (2009). Preventing patient falls. (2nd ed). [place]: [place]. PT-OP-E Functional Tests Start: 07/11/18 13:51 Freq: Status: Active Protocol: Document 09/26/18 10:35 RCC (Rec: 09/26/18 11:49 RCC [email or web address]) Functional Tests Dynamic Gait Index (DGI) Score 19 DGI Impairment Rating 20 to <40% Impaired (Score 15- 19) PT-OP-M Strength Start: 07/11/18 13:51 Freq: Status: Active Protocol: Document 09/26/18 10:35 RCC (Rec: 09/26/18 11:49 RCC [email or web address]) Ankle/Foot Strength Ankle and Foot Manual Muscle Testing Right Dorsiflexion (L4) 4 Good Plantarflexion (S1) 4 Good Left Dorsiflexion (L4) 3- Fair- Plantarflexion (S1) 4 Good PT-OP-Q Treatments Start: 07/11/18 13:51 Freq: Status: Active Protocol: Document 10/17/18 14:32 RCC (Rec: 10/18/18 13:32 [facility] [email or web address]) Cardio Equipment Recumbent Stepper (Sci-Fit) Duration (Minutes) 10 Resistance 4 Gym Equipment Shuttle Balance Red Comments Wide AGUSTÍN (Perturbations, EO/EC ), Staggered Stance Therapeutic Exercises Supine Exercises Figure 4 stretch Side bilateral Comments Manual Adductor stretch Side bilateral Comments Manual Single KtC Supine Exercise Name Single KtC Side bilateral Comments Manual Hamstring Stretch Supine Exercise Name HS stretch Side bilateral Comments Manual Standing Exercises Ankle Plantar flexion Standing Exercise Name Ankle PF Equipment Used EDDIE Reps/Minutes X20 1 Standing Exercise Name Gastroc stretch Side bilateral Equipment Used EDDIE Reps/Minutes 2X40 Neuro Re-Education Treatment Balance Activities [place] Details w/leg fwd then w/leg back then with alt with squat Reps/Duration 2 laps in // bars Comments low leg 1st then high leg drives after PT-OP-R Modalities Start: 07/11/18 13:51 Freq: Status: Active Protocol: Document 10/17/18 14:32 [facility] (Rec: 10/18/18 13:32 [facility] [email or web address]) Electric Stimulation Electric Stimulation Nigerian Stimulation Body Location L Tib Anterior Duration (Minutes) 10 Intensity 65 Frequency 10 on/10 off Patient Position Sitting Comments Perform with DF PT-OP-T Assessment and Plan Start: 07/11/18 13:51 Freq: Status: Active Protocol: Document 10/17/18 14:32 [facility] (Rec: 10/18/18 13:32 [facility] [email or web address]) Physical Therapy Assessment Assessment Summary Assessment Pt continues to have tension in B hamstrings, but improved after manual stretching. Pt able to perform grapevine squats, but does require UE support due to weakness and impaired proprioception. Physical Therapy Plan Frequency and Duration Frequency of Treatment 2x/Week Duration of Treatment 8 weeks Plan of Care Start Date 09/26/18 Plan of Care End Date 11/21/18 Next Visit Focus/Plan Next Note Type Treatment Note Next Visit Plan balance and LE strengthening as tolerated.
--- NOTE | 2018-10-24 14:30 | PT.OTN ---
Current Diagnoses Other abnormalities of gait and mobility (10/24/18) Physical Therapy Treatment Note PT-OP-A Visit Information Start: 07/11/18 13:51 Freq: Status: Active Protocol: Document 10/24/18 14:30 RCC (Rec: 10/24/18 15:39 RCC [email or web address]) Out-Patient Physical Therapy Visit Information Visit Information Visit Type Treatment Note Visit Start Time 14:30 Visit Stop Time 15:19 Total Visit Minutes 49 Visit Number 25 Number of CHUCKING MACHINE SET UP OPERATOR Visits 0 Evaluation Information Evaluation Date 07/11/18 PT-OP-B Current Condition Start: 07/11/18 13:51 Freq: Status: Active Protocol: Document 07/11/18 11:15 DCW (Rec: 07/11/18 14:11 DCW [id number]) Current Condition History of Current Condition Onset Date Multi-year history Current Complaints Instability, core weakness, LE weakness, L drop foot, history of falls History of Current Condition Pt is an 82 year old male presenting with a multi-year history of imbalance, falls, and weakness. Pt has been seen at this facility multiple times previously, and admits that my biggest problem is that I have no self-discipline , and I never do what I'm supposed to do unless I'm coming in here. Admits that he has never developed any core strength, even though he knows that it would be a big help. 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 Pt notes that he had previously had drop foot in 2009 following chemo and radiation for prostate cancer, but it eventually went away on its own, and was never as bad as it is now. Pt also notes that he has neuropathy in both feet, but he believes that it has actually been improving, or at least it isn't bothering me as much. Prior Treatments and Tests Prior physical therapy sessions at this facility Treatment Goals Patient/Caregiver Goals Pt wants to improve his stability and core strength, and return to working out at [facility]. PT-OP-C Subjective Start: 07/11/18 13:51 Freq: Status: Active Protocol: Document 10/24/18 14:30 RCC (Rec: 10/24/18 15:39 RCC [email or web address]) OP-PT Subjective Patient Comments Patient Comments Pt notes that he still has the feeling that both of his legs are wrapped tightly, sometimes warm but not painful . He is following up with neurologist this summer. PT-OP-D Balance Start: 07/11/18 13:51 Freq: Status: Active Protocol: Document 10/24/18 14:30 RCC (Rec: 10/24/18 15:39 RCC [email or web address]) OP-PT Balance Assessment Standing Balance Standing Balance Comments decreased ankle strategy with standing balance March Fall Scale Copyright Permission Joaquim JM, Joaquim RM, Matias SJ. Development of a scale to identify the fall- prone patient. Can J Aging 1989;8;366-7. Rina March (2009). Preventing patient falls. (2nd ed). [place]: [place]. PT-OP-E Functional Tests Start: 07/11/18 13:51 Freq: Status: Active Protocol: Document 09/26/18 10:35 RCC (Rec: 09/26/18 11:49 RCC [email or web address]) Functional Tests Dynamic Gait Index (DGI) Score 19 DGI Impairment Rating 20 to <40% Impaired (Score 15- 19) PT-OP-M Strength Start: 07/11/18 13:51 Freq: Status: Active Protocol: Document 09/26/18 10:35 RCC (Rec: 09/26/18 11:49 RCC [email or web address]) Ankle/Foot Strength Ankle and Foot Manual Muscle Testing Right Dorsiflexion (L4) 4 Good Plantarflexion (S1) 4 Good Left Dorsiflexion (L4) 3- Fair- Plantarflexion (S1) 4 Good PT-OP-Q Treatments Start: 07/11/18 13:51 Freq: Status: Active Protocol: Document 10/24/18 14:30 RCC (Rec: 10/24/18 15:39 RCC [email or web address]) Cardio Equipment Recumbent Stepper (Sci-Fit) Duration (Minutes) 10 Resistance 5 Gym Equipment Shuttle Balance Red Comments Wide AGUSTÍN (Perturbations, EO/EC ), Staggered Stance Therapeutic Exercises Supine Exercises Figure 4 stretch Side bilateral Comments Manual Adductor stretch Side bilateral Comments Manual Hamstring Stretch Supine Exercise Name HS stretch Side bilateral Comments Manual Neuro Re-Education Treatment Other Activities unstable surface- walking Details walking on various foam and 1/ 2 pods with yoga mat over top Reps/Duration 10 laps Comments EO looking straight ahead in / / bars PT-OP-R Modalities Start: 07/11/18 13:51 Freq: Status: Active Protocol: Document 10/24/18 14:30 RCC (Rec: 10/24/18 15:39 RCC [email or web address]) Electric Stimulation Electric Stimulation [place]ian Stimulation Body Location L Tib Anterior Duration (Minutes) 10 Intensity 49 Frequency 10 on/10 off Patient Position Sitting Comments Perform with DF PT-OP-T Assessment and Plan Start: 07/11/18 13:51 Freq: Status: Active Protocol: Document 10/24/18 14:30 RCC (Rec: 10/24/18 15:39 [facility] [email or web address]) Physical Therapy Assessment Assessment Summary Assessment Pt with increased difficulty when performing unstable ambulation not looking directly at feed/ground. He tolerated perturbations on balance board well, but does require occasional UE support and decreased ankle strategy. Physical Therapy Plan Frequency and Duration Frequency of Treatment 2x/Week Duration of Treatment 8 weeks Plan of Care Start Date 09/26/18 Plan of Care End Date 11/21/18 Next Visit Focus/Plan Next Note Type Treatment Note Next Visit Plan static and dynamic balance progression as tolerated.
--- NOTE | 2018-10-29 12:00 | PT.OTN ---
Current Diagnoses Other abnormalities of gait and mobility (10/29/18) Physical Therapy Treatment Note PT-OP-A Visit Information Start: 07/11/18 13:51 Freq: Status: Active Protocol: Document 10/29/18 11:15 DCW (Rec: 10/29/18 12:00 DCW [id number]) Out-Patient Physical Therapy Visit Information Visit Information Visit Type Treatment Note Visit Start Time 11:15 Visit Stop Time 12:05 Total Visit Minutes 50 Visit Number 26 Number of GIS TECHNICIAN Visits 0 Evaluation Information Evaluation Date 07/11/18 PT-OP-B Current Condition Start: 07/11/18 13:51 Freq: Status: Active Protocol: Document 07/11/18 11:15 DCW (Rec: 07/11/18 14:11 DCW [id number]) Current Condition History of Current Condition Onset Date Multi-year history Current Complaints Instability, core weakness, LE weakness, L drop foot, history of falls History of Current Condition Pt is an 82 year old male presenting with a multi-year history of imbalance, falls, and weakness. Pt has been seen at this facility multiple times previously, and admits that my biggest problem is that I have no self-discipline , and I never do what I'm supposed to do unless I'm coming in here. Admits that he has never developed any core strength, even though he knows that it would be a big help. 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 Pt notes that he had previously had drop foot in 2009 following chemo and radiation for prostate cancer, but it eventually went away on its own, and was never as bad as it is now. Pt also notes that he has neuropathy in both feet, but he believes that it has actually been improving, or at least it isn't bothering me as much. Prior Treatments and Tests Prior physical therapy sessions at this facility Treatment Goals Patient/Caregiver Goals Pt wants to improve his stability and core strength, and return to working out at [facility]. PT-OP-C Subjective Start: 07/11/18 13:51 Freq: Status: Active Protocol: Document 10/29/18 11:15 DCW (Rec: 10/29/18 12:00 DCW [id number]) OP-PT Subjective Patient Comments Patient Comments For my first full day at age 83, I feel just fine. Pt admits that he hasn't noticed any major progress, but its also not any worse. PT-OP-D Balance Start: 07/11/18 13:51 Freq: Status: Active Protocol: Document 10/24/18 14:30 RCC (Rec: 10/24/18 15:39 RCC [email or web address]) OP-PT Balance Assessment Standing Balance Standing Balance Comments decreased ankle strategy with standing balance March Fall Scale Copyright Permission Joaquim JM, Joaquim RM, Matias SJ. Development of a scale to identify the fall- prone patient. Can J Aging 1989;8;366-7. Rina March (2009). Preventing patient falls. (2nd ed). [place]: [place]. PT-OP-E Functional Tests Start: 07/11/18 13:51 Freq: Status: Active Protocol: Document 09/26/18 10:35 RCC (Rec: 09/26/18 11:49 RCC [email or web address]) Functional Tests Dynamic Gait Index (DGI) Score 19 DGI Impairment Rating 20 to <40% Impaired (Score 15- 19) PT-OP-M Strength Start: 07/11/18 13:51 Freq: Status: Active Protocol: Document 09/26/18 10:35 RCC (Rec: 09/26/18 11:49 RCC [email or web address]) Ankle/Foot Strength Ankle and Foot Manual Muscle Testing Right Dorsiflexion (L4) 4 Good Plantarflexion (S1) 4 Good Left Dorsiflexion (L4) 3- Fair- Plantarflexion (S1) 4 Good PT-OP-Q Treatments Start: 07/11/18 13:51 Freq: Status: Active Protocol: Document 10/29/18 11:15 DCW (Rec: 10/29/18 12:00 DCW [id number]) Cardio Equipment Recumbent Stepper (Sci-Fit) Duration (Minutes) 6 Resistance 4 Gym Equipment Shuttle Balance Red Comments Wide AGUSTÍN (Perturbations, EO/EC ), Staggered Stance Therapeutic Exercises Supine Exercises Figure 4 stretch Side bilateral Comments Manual Adductor stretch Side bilateral Comments Manual Single KtC Supine Exercise Name Single KtC Side bilateral Comments Manual Hamstring Stretch Supine Exercise Name HS stretch Side bilateral Comments Manual Standing Exercises Ankle Plantar flexion Standing Exercise Name Ankle PF Equipment Used EDDIE Reps/Minutes X20 1 Standing Exercise Name Gastroc stretch Side bilateral Equipment Used EDDIE Reps/Minutes 2X40 Therapeutic Activity Therapeutic Activity Leg lift to horse stirrup Comments L leg step up to 12 step /c 5 # ankle weight PT-OP-R Modalities Start: 07/11/18 13:51 Freq: Status: Active Protocol: Document 10/29/18 11:15 DCW (Rec: 10/29/18 12:00 DCW [id number]) Electric Stimulation Electric Stimulation [place] Stimulation Body Location L Tib Anterior Duration (Minutes) 10 Intensity 51 Frequency 10 on/10 off Patient Position Sitting Comments Perform with DF PT-OP-T Assessment and Plan Start: 07/11/18 13:51 Freq: Status: Active Protocol: Document 10/29/18 11:15 DCW (Rec: 10/29/18 12:00 DCW [id number]) Physical Therapy Assessment Assessment Summary Assessment Pt reports he still feels better after having [place] E -stim on his anterior tib, however he admits he doesn't know if it actually does anything. Pt will be leaving at the end of this month to vacation at his son's ranch in [place], and is apprehensive about how well he will do out horse riding. Physical Therapy Plan Frequency and Duration Frequency of Treatment 2x/Week Duration of Treatment 8 weeks Plan of Care Start Date 09/26/18 Plan of Care End Date 11/21/18 Next Visit Focus/Plan Next Note Type Treatment Note Next Visit Plan static and dynamic balance progression as tolerated.
--- NOTE | 2018-10-31 12:00 | PT.OTN ---
Current Diagnoses Other abnormalities of gait and mobility (10/31/18) Physical Therapy Treatment Note PT-OP-A Visit Information Start: 07/11/18 13:51 Freq: Status: Active Protocol: Document 10/31/18 12:00 RCC (Rec: 10/31/18 13:58 RCC [email or web address]) Out-Patient Physical Therapy Visit Information Visit Information Visit Type Treatment Note Visit Start Time 12:00 Visit Stop Time 12:52 Total Visit Minutes 52 Visit Number 27 Number of MFT Visits 0 Evaluation Information Evaluation Date 07/11/18 PT-OP-B Current Condition Start: 07/11/18 13:51 Freq: Status: Active Protocol: Document 07/11/18 11:15 DCW (Rec: 07/11/18 14:11 DCW [id number]) Current Condition History of Current Condition Onset Date Multi-year history Current Complaints Instability, core weakness, LE weakness, L drop foot, history of falls History of Current Condition Pt is an 82 year old male presenting with a multi-year history of imbalance, falls, and weakness. Pt has been seen at this facility multiple times previously, and admits that my biggest problem is that I have no self-discipline , and I never do what I'm supposed to do unless I'm coming in here. Admits that he has never developed any core strength, even though he knows that it would be a big help. 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 Pt notes that he had previously had drop foot in 2009 following chemo and radiation for prostate cancer, but it eventually went away on its own, and was never as bad as it is now. Pt also notes that he has neuropathy in both feet, but he believes that it has actually been improving, or at least it isn't bothering me as much. Prior Treatments and Tests Prior physical therapy sessions at this facility Treatment Goals Patient/Caregiver Goals Pt wants to improve his stability and core strength, and return to working out at [facility]. PT-OP-C Subjective Start: 07/11/18 13:51 Freq: Status: Active Protocol: Document 10/31/18 12:00 RCC (Rec: 10/31/18 13:58 RCC [email or web address]) OP-PT Subjective Patient Comments Patient Comments Pt states that he has had less stocking-type warm feelings in his bilateral legs this past week, unable to find a pattern to it. PT-OP-D Balance Start: 07/11/18 13:51 Freq: Status: Active Protocol: Document 10/24/18 14:30 RCC (Rec: 10/24/18 15:39 RCC [email or web address]) OP-PT Balance Assessment Standing Balance Standing Balance Comments decreased ankle strategy with standing balance March Fall Scale Copyright Permission Joaquim ZUNIGA, Joaquim RM, Matias SJ. Development of a scale to identify the fall- prone patient. Can J Aging 1989;8;366-7. Rina March (2009). Preventing patient falls. (2nd ed). [place]: [place]. PT-OP-E Functional Tests Start: 07/11/18 13:51 Freq: Status: Active Protocol: Document 09/26/18 10:35 RCC (Rec: 09/26/18 11:49 RCC [email or web address]) Functional Tests Dynamic Gait Index (DGI) Score 19 DGI Impairment Rating 20 to <40% Impaired (Score 15- 19) PT-OP-M Strength Start: 07/11/18 13:51 Freq: Status: Active Protocol: Document 09/26/18 10:35 RCC (Rec: 09/26/18 11:49 RCC [email or web address]) Ankle/Foot Strength Ankle and Foot Manual Muscle Testing Right Dorsiflexion (L4) 4 Good Plantarflexion (S1) 4 Good Left Dorsiflexion (L4) 3- Fair- Plantarflexion (S1) 4 Good PT-OP-Q Treatments Start: 07/11/18 13:51 Freq: Status: Active Protocol: Document 10/31/18 12:00 RCC (Rec: 10/31/18 13:58 RCC [email or web address]) Gym Equipment Shuttle Recovery Unilateral Squats Resistance 75# Shuttle Recovery Platform Unstable Reps/Time x10 Bilateral Squats Resistance 100# Shuttle Recovery Platform Unstable Reps/Time 2x10 Shuttle Balance Red Comments Wide AGUSTÍN (Perturbations, EO/EC ), Staggered Stance Sport Cord hurdles Exercise Details forward and backward walking over hurdles Cord/Resistance white with blue Reps/Duration 8 laps Comments Min A x1 to prevent falling; 2 hurdles near mid-length of band tension, walking forward with 1 foot/obed, then backward 2 feet/obed Therapeutic Exercises Supine Exercises Figure 4 stretch Side bilateral Comments Manual Adductor stretch Side bilateral Comments Manual Hamstring Stretch Supine Exercise Name HS stretch Side bilateral Comments Manual Standing Exercises Leg lift Standing Exercise Name leg lift into horse stirrup Side bilateral Resistance 7 lb AW Reps/Minutes 10 each x2 Comments L leg step up to 16 step Ankle Plantar flexion Standing Exercise Name Ankle PF Equipment Used EDDIE Reps/Minutes X20 PT-OP-R Modalities Start: 07/11/18 13:51 Freq: Status: Active Protocol: Document 10/31/18 12:00 RCC (Rec: 10/31/18 13:58 RCC [email or web address]) Electric Stimulation Electric Stimulation Swiss Stimulation Body Location L Tib Anterior Duration (Minutes) 10 Intensity 53 Frequency 10 on/10 off Patient Position Sitting Comments Perform with DF PT-OP-T Assessment and Plan Start: 07/11/18 13:51 Freq: Status: Active Protocol: Document 10/31/18 12:00 RCC (Rec: 10/31/18 13:58 [facility] [email or web address]) Physical Therapy Assessment Assessment Summary Assessment Pt with loss of balance x2 during backward stepping over hurdles using sports cord, required Min A to prevent falling. Pt with difficulty stepping backward due to weakness and impaired proprioception and dynamic standing balance. LLE fatigues much more rapidly with LE lift onto step up when compared to the R. Physical Therapy Plan Frequency and Duration Frequency of Treatment 2x/Week Duration of Treatment 8 weeks Plan of Care Start Date 09/26/18 Plan of Care End Date 11/21/18 Next Visit Focus/Plan Next Note Type Treatment Note Next Visit Plan cont. to advance dynamic standing balance, flexibility, and LE strengthening
--- NOTE | 2018-11-04 14:30 | PT.OTN ---
Current Diagnoses Other abnormalities of gait and mobility (11/04/18) Physical Therapy Treatment Note PT-OP-A Visit Information Start: 07/11/18 13:51 Freq: Status: Active Protocol: Document 11/04/18 13:45 DCW (Rec: 11/04/18 14:30 DCW [id number]) Out-Patient Physical Therapy Visit Information Visit Information Visit Type Treatment Note Visit Start Time 13:45 Visit Stop Time 14:35 Total Visit Minutes 50 Visit Number 28 Number of RACE STEWARD Visits 0 Evaluation Information Evaluation Date 07/11/18 PT-OP-B Current Condition Start: 07/11/18 13:51 Freq: Status: Active Protocol: Document 07/11/18 11:15 DCW (Rec: 07/11/18 14:11 DCW [id number]) Current Condition History of Current Condition Onset Date Multi-year history Current Complaints Instability, core weakness, LE weakness, L drop foot, history of falls History of Current Condition Pt is an 82 year old male presenting with a multi-year history of imbalance, falls, and weakness. Pt has been seen at this facility multiple times previously, and admits that my biggest problem is that I have no self-discipline , and I never do what I'm supposed to do unless I'm coming in here. Admits that he has never developed any core strength, even though he knows that it would be a big help. 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 Pt notes that he had previously had drop foot in 2009 following chemo and radiation for prostate cancer, but it eventually went away on its own, and was never as bad as it is now. Pt also notes that he has neuropathy in both feet, but he believes that it has actually been improving, or at least it isn't bothering me as much. Prior Treatments and Tests Prior physical therapy sessions at this facility Treatment Goals Patient/Caregiver Goals Pt wants to improve his stability and core strength, and return to working out at [facility]. PT-OP-C Subjective Start: 07/11/18 13:51 Freq: Status: Active Protocol: Document 11/04/18 13:45 DCW (Rec: 11/04/18 14:30 DCW [id number]) OP-PT Subjective Patient Comments Patient Comments Pt reports that he attempted to use his stirrup-extenders over the weekend, and decided he does not have enough strength to lift himself up using his right leg, and that his left leg has gotten a lot weaker. PT-OP-D Balance Start: 07/11/18 13:51 Freq: Status: Active Protocol: Document 10/24/18 14:30 RCC (Rec: 10/24/18 15:39 RCC [email or web address]) OP-PT Balance Assessment Standing Balance Standing Balance Comments decreased ankle strategy with standing balance March Fall Scale Copyright Permission Joaquim JM, Joaquim RM, Matias SJ. Development of a scale to identify the fall- prone patient. Can J Aging 1989;8;366-7. Rina March (2009). Preventing patient falls. (2nd ed). [place]: [place]. PT-OP-E Functional Tests Start: 07/11/18 13:51 Freq: Status: Active Protocol: Document 09/26/18 10:35 RCC (Rec: 09/26/18 11:49 RCC [email or web address]) Functional Tests Dynamic Gait Index (DGI) Score 19 DGI Impairment Rating 20 to <40% Impaired (Score 15- 19) PT-OP-M Strength Start: 07/11/18 13:51 Freq: Status: Active Protocol: Document 09/26/18 10:35 RCC (Rec: 09/26/18 11:49 RCC [email or web address]) Ankle/Foot Strength Ankle and Foot Manual Muscle Testing Right Dorsiflexion (L4) 4 Good Plantarflexion (S1) 4 Good Left Dorsiflexion (L4) 3- Fair- Plantarflexion (S1) 4 Good PT-OP-Q Treatments Start: 07/11/18 13:51 Freq: Status: Active Protocol: Document 11/04/18 13:45 DCW (Rec: 11/04/18 14:30 DCW [id number]) Cardio Equipment Recumbent Elliptical (Biodex) Duration (Minutes) 6 Resistance 4 Seat Position 8 Gym Equipment Shuttle Recovery Unilateral Heel Raises Resistance 50# Unilateral Squats Resistance 75# Shuttle Recovery Platform Stable Reps/Time x10 Bilateral Squats Resistance 100# Shuttle Recovery Platform Unstable Reps/Time 2x10 Shuttle Balance Red Comments Wide AGUSTÍN (Perturbations, EO/EC ), Staggered Stance ( Horizontal Head Turns) Therapeutic Exercises Standing Exercises 2 Standing Exercise Name Step-ups Equipment Used 16 and 24 step Other Exercises Resisted Fwd/Retro walking Other Exercise Name Resisted Fwd/Retro Walking Resistance Green Equipment Used T-band Resisted Side-stepping Other Exercise Name Resisted Side-stepping Resistance Green Equipment Used T-band PT-OP-R Modalities Start: 07/11/18 13:51 Freq: Status: Active Protocol: Document 11/04/18 13:45 DCW (Rec: 11/04/18 14:30 DCW [id number]) Electric Stimulation Electric Stimulation Algerian Stimulation Body Location L Tib Anterior Duration (Minutes) 10 Intensity 55 Frequency 10 on/10 off Patient Position Sitting Comments Perform with DF PT-OP-T Assessment and Plan Start: 07/11/18 13:51 Freq: Status: Active Protocol: Document 11/04/18 13:45 DCW (Rec: 11/04/18 14:30 DCW [id number]) Physical Therapy Assessment Impairments Impairments Activity Tolerance Balance Gait Posture Sensation Strength Goals Four Impairment Dynamic Balance Tooth Cutter Spur Goal (LTG) Pt to score 20/24 on DGI -09/26/18: 1924 LTG Duration 11/21/18 Three Impairment Drop foot Detention Goal (LTG) Pt to complete 2 MWT with no instances of drop foot LTG Duration 11/21/18 Two Impairment Activity participation Tooth Cutter Spur Goal (LTG) Pt to return to working out safely at [facility] with no balance concerns -no change LTG Duration 11/21/18 One Impairment Pt has been non-compliant with previous home exercise programs Short Term Goal (STG) Pt to be independent and compliant with appropriate HEP -performing >50% of HEP daily STG Duration 10/24/18 Assessment Summary Assessment Pt did surprisingly well with step-up on a 16 and 24 inch step, however required substantial UE support, which is not as easy to do when attempting to get himself onto a saddle. Physical Therapy Plan Frequency and Duration Frequency of Treatment 2x/Week Duration of Treatment 8 weeks Plan of Care Start Date 09/26/18 Plan of Care End Date 11/21/18 Next Visit Focus/Plan Next Note Type Treatment Note Next Visit Plan cont. to advance dynamic standing balance, flexibility, and LE strengthening
--- NOTE | 2018-11-07 14:04 | PT.OTN ---
Current Diagnoses Other abnormalities of gait and mobility (11/07/18) Physical Therapy Treatment Note PT-OP-A Visit Information Start: 07/11/18 13:51 Freq: Status: Active Protocol: Document 11/07/18 13:48 SA (Rec: 11/07/18 14:04 [email or web address]) Out-Patient Physical Therapy Visit Information Visit Information Visit Type Treatment Note Visit Start Time 12:00 Visit Stop Time 12:50 Total Visit Minutes 50 Visit Number 29 Number of ELECTRIC BATH ATTENDANT Visits 1 PT-OP-B Current Condition Start: 07/11/18 13:51 Freq: Status: Active Protocol: Document 07/11/18 11:15 DCW (Rec: 07/11/18 14:11 DCW [id number]) Current Condition History of Current Condition Onset Date Multi-year history Current Complaints Instability, core weakness, LE weakness, L drop foot, history of falls History of Current Condition Pt is an 82 year old male presenting with a multi-year history of imbalance, falls, and weakness. Pt has been seen at this facility multiple times previously, and admits that my biggest problem is that I have no self-discipline , and I never do what I'm supposed to do unless I'm coming in here. Admits that he has never developed any core strength, even though he knows that it would be a big help. 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 Pt notes that he had previously had drop foot in 2009 following chemo and radiation for prostate cancer, but it eventually went away on its own, and was never as bad as it is now. Pt also notes that he has neuropathy in both feet, but he believes that it has actually been improving, or at least it isn't bothering me as much. Prior Treatments and Tests Prior physical therapy sessions at this facility Treatment Goals Patient/Caregiver Goals Pt wants to improve his stability and core strength, and return to working out at [facility]. PT-OP-C Subjective Start: 07/11/18 13:51 Freq: Status: Active Protocol: Document 11/07/18 13:48 SA (Rec: 11/07/18 14:04 SA [email or web address]) OP-PT Subjective Patient Comments Patient Comments Pt brought picture of stirrup extenders, still unable to use safely but would like to keep trying. PT-OP-D Balance Start: 07/11/18 13:51 Freq: Status: Active Protocol: Document 10/24/18 14:30 RCC (Rec: 10/24/18 15:39 RCC [email or web address]) OP-PT Balance Assessment Standing Balance Standing Balance Comments decreased ankle strategy with standing balance March Fall Scale Copyright Permission Joaquim ZUNIGA, Joaquim RM, Matias SJ. Development of a scale to identify the fall- prone patient. Can J Aging 1989;8;366-7. Rina March (2009). Preventing patient falls. (2nd ed). [place]: [place]. PT-OP-E Functional Tests Start: 07/11/18 13:51 Freq: Status: Active Protocol: Document 09/26/18 10:35 RCC (Rec: 09/26/18 11:49 RCC [email or web address]) Functional Tests Dynamic Gait Index (DGI) Score 19 DGI Impairment Rating 20 to <40% Impaired (Score 15- 19) PT-OP-M Strength Start: 07/11/18 13:51 Freq: Status: Active Protocol: Document 09/26/18 10:35 RCC (Rec: 09/26/18 11:49 RCC [email or web address]) Ankle/Foot Strength Ankle and Foot Manual Muscle Testing Right Dorsiflexion (L4) 4 Good Plantarflexion (S1) 4 Good Left Dorsiflexion (L4) 3- Fair- Plantarflexion (S1) 4 Good PT-OP-Q Treatments Start: 07/11/18 13:51 Freq: Status: Active Protocol: Document 11/07/18 13:48 SA (Rec: 11/07/18 14:04 SA [email or web address]) Cardio Equipment Recumbent Stepper (Sci-Fit) Duration (Minutes) 7 Resistance 4 Gym Equipment Shuttle Recovery Bilateral Squats Resistance 100# Shuttle Recovery Platform Unstable Reps/Time 2x10 Therapeutic Exercises Supine Exercises Figure 4 stretch Side bilateral Comments Manual Hamstring Stretch Supine Exercise Name HS stretch Side bilateral Comments Manual Standing Exercises hip ABD Side bilateral Resistance 2# Reps/Minutes 12x each Comments verbal/tactile cues for form Step up on stool with balance disc Side bilateral Equipment Used Blue balance disc/balance pole Reps/Minutes 15 x each Comments CGA provided Leg lift Standing Exercise Name leg lift into horse stirrup Side bilateral Resistance 7# Reps/Minutes 10 x 2 Comments L leg step up to 16 step Ankle Plantar flexion Standing Exercise Name Ankle PF Equipment Used EDDIE Reps/Minutes X20 2 Standing Exercise Name Step-ups Equipment Used 16 and 24 step Other Exercises Resisted Fwd/Retro walking Other Exercise Name Resisted Fwd/Retro Walking Resistance Green Equipment Used T-band Resisted Side-stepping Other Exercise Name Resisted Side-stepping Resistance Green Equipment Used T-band PT-OP-R Modalities Start: 07/11/18 13:51 Freq: Status: Active Protocol: Document 11/07/18 13:48 SA (Rec: 11/07/18 14:04 SA [email or web address]) Electric Stimulation Electric Stimulation Niuean Stimulation Body Location L Tib Anterior Duration (Minutes) 10 Intensity 55 Frequency 10 on/10 off Patient Position Sitting Comments Perform with DF PT-OP-T Assessment and Plan Start: 07/11/18 13:51 Freq: Status: Active Protocol: Document 11/07/18 13:48 SA (Rec: 11/07/18 14:04 [email or web address]) Physical Therapy Assessment Assessment Summary Assessment Focused on simulating use of stirrup assistant media planner. Used unstable surface to stand on with increasing hip Flexion and ABD. Pt tolerated well, fatigued by end of session, noted weakness with R hip ABD which is leg he has to clear over horse. Physical Therapy Plan Next Visit Focus/Plan Next Note Type Treatment Note Next Visit Plan cont. to advance dynamic standing balance, flexibility, and LE strengthening
--- NOTE | 2018-11-12 15:16 | PT.OTN ---
Current Diagnoses Other abnormalities of gait and mobility (11/12/18) Physical Therapy Treatment Note PT-OP-A Visit Information Start: 07/11/18 13:51 Freq: Status: Active Protocol: Document 11/12/18 12:00 GGD (Rec: 11/12/18 15:16 GGD [email or web address]) Out-Patient Physical Therapy Visit Information Visit Information Visit Type Treatment Note Visit Start Time 12:00 Visit Stop Time 12:55 Total Visit Minutes 53 Visit Number 30 Number of TIRE CURER Visits 2 Evaluation Information Evaluation Date 07/11/18 PT-OP-B Current Condition Start: 07/11/18 13:51 Freq: Status: Active Protocol: Document 07/11/18 11:15 DCW (Rec: 07/11/18 14:11 DCW [id number]) Current Condition History of Current Condition Onset Date Multi-year history Current Complaints Instability, core weakness, LE weakness, L drop foot, history of falls History of Current Condition Pt is an 82 year old male presenting with a multi-year history of imbalance, falls, and weakness. Pt has been seen at this facility multiple times previously, and admits that my biggest problem is that I have no self-discipline , and I never do what I'm supposed to do unless I'm coming in here. Admits that he has never developed any core strength, even though he knows that it would be a big help. 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 Pt notes that he had previously had drop foot in 2009 following chemo and radiation for prostate cancer, but it eventually went away on its own, and was never as bad as it is now. Pt also notes that he has neuropathy in both feet, but he believes that it has actually been improving, or at least it isn't bothering me as much. Prior Treatments and Tests Prior physical therapy sessions at this facility Treatment Goals Patient/Caregiver Goals Pt wants to improve his stability and core strength, and return to working out at [facility]. PT-OP-C Subjective Start: 07/11/18 13:51 Freq: Status: Active Protocol: Document 11/12/18 12:00 GGD (Rec: 11/12/18 15:16 GGD [email or web address]) OP-PT Subjective Patient Comments Patient Comments Pt states he was able to get his right foot into stirrup scuba diver, but not able to bring his left foot up. PT-OP-D Balance Start: 07/11/18 13:51 Freq: Status: Active Protocol: Document 10/24/18 14:30 RCC (Rec: 10/24/18 15:39 RCC [email or web address]) OP-PT Balance Assessment Standing Balance Standing Balance Comments decreased ankle strategy with standing balance March Fall Scale Copyright Permission Joaquim JM, Joaquim RM, Matias SJ. Development of a scale to identify the fall- prone patient. Can J Aging 1989;8;366-7. Rina March (2009). Preventing patient falls. (2nd ed). [place]: [place]. PT-OP-E Functional Tests Start: 07/11/18 13:51 Freq: Status: Active Protocol: Document 09/26/18 10:35 RCC (Rec: 09/26/18 11:49 RCC [email or web address]) Functional Tests Dynamic Gait Index (DGI) Score 19 DGI Impairment Rating 20 to <40% Impaired (Score 15- 19) PT-OP-M Strength Start: 07/11/18 13:51 Freq: Status: Active Protocol: Document 09/26/18 10:35 RCC (Rec: 09/26/18 11:49 RCC [email or web address]) Ankle/Foot Strength Ankle and Foot Manual Muscle Testing Right Dorsiflexion (L4) 4 Good Plantarflexion (S1) 4 Good Left Dorsiflexion (L4) 3- Fair- Plantarflexion (S1) 4 Good PT-OP-Q Treatments Start: 07/11/18 13:51 Freq: Status: Active Protocol: Document 11/12/18 12:00 GGD (Rec: 11/12/18 15:16 GGD [email or web address]) Cardio Equipment Recumbent Stepper (Sci-Fit) Duration (Minutes) 7 Resistance 4 Gym Equipment Shuttle Recovery Bilateral Squats Resistance 100# Shuttle Recovery Platform Unstable Reps/Time 2x10 Therapeutic Exercises Supine Exercises Figure 4 stretch Side bilateral Comments Manual Single KtC Supine Exercise Name Single KtC Side bilateral Comments Manual Hamstring Stretch Supine Exercise Name HS stretch Side bilateral Comments Manual Standing Exercises hip ABD Side bilateral Resistance 2# Reps/Minutes 12x each Comments verbal/tactile cues for form Step up on stool with balance disc Side bilateral Equipment Used Blue balance disc/balance pole Reps/Minutes 15 x each Comments CGA provided Leg lift Standing Exercise Name leg lift into horse stirrup Side bilateral Resistance 7# Reps/Minutes 10 x 2 Comments L leg step up to 16 step Ankle Plantar flexion Standing Exercise Name Ankle PF Equipment Used EDDIE Reps/Minutes X20 2 Standing Exercise Name Step- taps Equipment Used 16 and 24 step 1 Standing Exercise Name Gastroc stretch Side bilateral Equipment Used EDDIE Reps/Minutes 2X40 Other Exercises Resisted Fwd/Retro walking Other Exercise Name Resisted Fwd/Retro Walking Resistance Green Equipment Used T-band Resisted Side-stepping Other Exercise Name Resisted Side-stepping Resistance Green Equipment Used T-band PT-OP-R Modalities Start: 07/11/18 13:51 Freq: Status: Active Protocol: Document 11/12/18 12:00 GGD (Rec: 11/12/18 15:16 GGD [email or web address]) Electric Stimulation Electric Stimulation Indonesian Stimulation Body Location L Tib Anterior Duration (Minutes) 10 Intensity 55 Frequency 10 on/10 off Patient Position Sitting Comments Perform with DF PT-OP-T Assessment and Plan Start: 07/11/18 13:51 Freq: Status: Active Protocol: Document 11/12/18 12:00 GGD (Rec: 11/12/18 15:16 GGD [email or web address]) Physical Therapy Assessment Assessment Summary Assessment Pt increase fatigue with exercise. He had mild LOB with gait and with standing on left LE. Physical Therapy Plan Frequency and Duration Frequency of Treatment 2x/Week Duration of Treatment 8 weeks Plan of Care Start Date 09/26/18 Plan of Care End Date 11/21/18 Next Visit Focus/Plan Next Note Type Treatment Note Next Visit Plan cont. to advance dynamic standing balance, flexibility, and LE strengthening
--- NOTE | 2018-11-14 15:32 | PT.OTN ---
Current Diagnoses Other abnormalities of gait and mobility (11/14/18) Physical Therapy Treatment Note PT-OP-A Visit Information Start: 07/11/18 13:51 Freq: Status: Active Protocol: Document 11/14/18 15:15 SA (Rec: 11/14/18 15:32 [email or web address]) Out-Patient Physical Therapy Visit Information Visit Information Visit Type Treatment Note Visit Start Time 13:45 Visit Stop Time 14:40 Total Visit Minutes 55 Visit Number 31 Number of ABSORPTION OPERATOR Visits 3 PT-OP-B Current Condition Start: 07/11/18 13:51 Freq: Status: Active Protocol: Document 07/11/18 11:15 DCW (Rec: 07/11/18 14:11 DCW [id number]) Current Condition History of Current Condition Onset Date Multi-year history Current Complaints Instability, core weakness, LE weakness, L drop foot, history of falls History of Current Condition Pt is an 82 year old male presenting with a multi-year history of imbalance, falls, and weakness. Pt has been seen at this facility multiple times previously, and admits that my biggest problem is that I have no self-discipline , and I never do what I'm supposed to do unless I'm coming in here. Admits that he has never developed any core strength, even though he knows that it would be a big help. 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 Pt notes that he had previously had drop foot in 2009 following chemo and radiation for prostate cancer, but it eventually went away on its own, and was never as bad as it is now. Pt also notes that he has neuropathy in both feet, but he believes that it has actually been improving, or at least it isn't bothering me as much. Prior Treatments and Tests Prior physical therapy sessions at this facility Treatment Goals Patient/Caregiver Goals Pt wants to improve his stability and core strength, and return to working out at [facility]. PT-OP-C Subjective Start: 07/11/18 13:51 Freq: Status: Active Protocol: Document 11/14/18 15:15 SA (Rec: 11/14/18 15:32 [email or web address]) OP-PT Subjective Patient Comments Patient Comments Pt reports he had an off day yesterday and felt unstable on his feet. Today is better but not 100%. Still trying to use stirrup shanker out and is getting closer every time. PT-OP-D Balance Start: 07/11/18 13:51 Freq: Status: Active Protocol: Document 10/24/18 14:30 RCC (Rec: 10/24/18 15:39 RCC [email or web address]) OP-PT Balance Assessment Standing Balance Standing Balance Comments decreased ankle strategy with standing balance March Fall Scale Copyright Permission Joaquim JM, Joaquim RM, Matias SJ. Development of a scale to identify the fall- prone patient. Can J Aging 1989;8;366-7. Rina March (2009). Preventing patient falls. (2nd ed). [place]: [place]. PT-OP-E Functional Tests Start: 07/11/18 13:51 Freq: Status: Active Protocol: Document 09/26/18 10:35 RCC (Rec: 09/26/18 11:49 RCC [email or web address]) Functional Tests Dynamic Gait Index (DGI) Score 19 DGI Impairment Rating 20 to <40% Impaired (Score 15- 19) PT-OP-M Strength Start: 07/11/18 13:51 Freq: Status: Active Protocol: Document 09/26/18 10:35 RCC (Rec: 09/26/18 11:49 RCC [email or web address]) Ankle/Foot Strength Ankle and Foot Manual Muscle Testing Right Dorsiflexion (L4) 4 Good Plantarflexion (S1) 4 Good Left Dorsiflexion (L4) 3- Fair- Plantarflexion (S1) 4 Good PT-OP-Q Treatments Start: 07/11/18 13:51 Freq: Status: Active Protocol: Document 11/14/18 15:15 SA (Rec: 11/14/18 15:32 SA [email or web address]) Cardio Equipment Recumbent Stepper (Sci-Fit) Duration (Minutes) 7 Resistance 4 Gym Equipment Shuttle Recovery Unilateral Squats Resistance 75# Shuttle Recovery Platform Stable Reps/Time x10 Bilateral Squats Resistance 100# Shuttle Recovery Platform Unstable Reps/Time 2x10 Shuttle Balance Red Reps/Duration 5 min Comments Tandem stance, NBOS, head turns, eyes closed. Therapeutic Exercises Supine Exercises Figure 4 stretch Side bilateral Reps/Minutes 30 x 2 Comments Manual Hamstring Stretch Supine Exercise Name HS stretch Side bilateral Comments Manual Standing Exercises hip ABD Side bilateral Resistance 4# Reps/Minutes 12x each Comments verbal/tactile cues for form Step up on stool with balance disc Side bilateral Equipment Used Blue balance disc/balance pole Reps/Minutes 15 x each Comments CGA provided Leg lift Standing Exercise Name leg lift into horse stirrup Side bilateral Resistance 7# Reps/Minutes 10 x 2 Comments L leg step up to 16 step Ankle Plantar flexion Standing Exercise Name Ankle PF Equipment Used EDDIE Reps/Minutes X20 2 Standing Exercise Name Step- taps Equipment Used 16 and 24 step 1 Standing Exercise Name Gastroc stretch Side bilateral Equipment Used EDDIE Reps/Minutes 2X40 Other Exercises Resisted Fwd/Retro walking Other Exercise Name Resisted Fwd/Retro Walking Resistance Green Equipment Used T-band Resisted Side-stepping Other Exercise Name Resisted Side-stepping Resistance Green Equipment Used T-band Neuro Re-Education Treatment Balance Activities Heel-toe Ambulation Surface level Reps/Duration 2 lengths Comments at bar PT-OP-R Modalities Start: 07/11/18 13:51 Freq: Status: Active Protocol: Document 11/14/18 15:15 SA (Rec: 11/14/18 15:32 SA [email or web address]) Electric Stimulation Electric Stimulation Slovak Stimulation Body Location L Tib Anterior Duration (Minutes) 10 Intensity 55 Frequency 10 on/10 off Patient Position Sitting Comments Perform with DF PT-OP-T Assessment and Plan Start: 07/11/18 13:51 Freq: Status: Active Protocol: Document 11/14/18 15:15 SA (Rec: 11/14/18 15:32 SA [email or web address]) Physical Therapy Assessment Assessment Summary Assessment Pt tolerating ther ex progressions well, continued hip strengthening and LE flexibility exercise as well as balance. Physical Therapy Plan Next Visit Focus/Plan Next Note Type Treatment Note Next Visit Plan Continue to progress strengthening, flexibility and balance program to allow pt to get on to a horse IND without a stool.
--- NOTE | 2018-11-26 17:46 | PT.OTN ---
Current Diagnoses Other abnormalities of gait and mobility (11/26/18) Physical Therapy Treatment Note PT-OP-A Visit Information Start: 07/11/18 13:51 Freq: Status: Active Protocol: Document 11/26/18 16:00 DCW (Rec: 11/26/18 17:46 DC [id number]) Out-Patient Physical Therapy Visit Information Visit Information Visit Type Progress Note Visit Start Time 16:00 Visit Stop Time 16:50 Total Visit Minutes 50 Visit Number [address] CONSULTANT Visits 0 Evaluation Information Evaluation Date 07/11/18 PT-OP-B Current Condition Start: 07/11/18 13:51 Freq: Status: Active Protocol: Document 07/11/18 11:15 DCW (Rec: 07/11/18 14:11 DCW [id number]) Current Condition History of Current Condition Onset Date Multi-year history Current Complaints Instability, core weakness, LE weakness, L drop foot, history of falls History of Current Condition Pt is an 82 year old male presenting with a multi-year history of imbalance, falls, and weakness. Pt has been seen at this facility multiple times previously, and admits that my biggest problem is that I have no self-discipline , and I never do what I'm supposed to do unless I'm coming in here. Admits that he has never developed any core strength, even though he knows that it would be a big help. 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 Pt notes that he had previously had drop foot in 2009 following chemo and radiation for prostate cancer, but it eventually went away on its own, and was never as bad as it is now. Pt also notes that he has neuropathy in both feet, but he believes that it has actually been improving, or at least it isn't bothering me as much. Prior Treatments and Tests Prior physical therapy sessions at this facility Treatment Goals Patient/Caregiver Goals Pt wants to improve his stability and core strength, and return to working out at [facility]. PT-OP-C Subjective Start: 07/11/18 13:51 Freq: Status: Active Protocol: Document 11/26/18 16:00 DCW (Rec: 11/26/18 17:46 DCW [id number]) OP-PT Subjective Patient Comments Patient Comments Pt reports he is fatigued today after returning from his vacation at his son's [employer] in [place]. PT-OP-D Balance Start: 07/11/18 13:51 Freq: Status: Active Protocol: Document 11/26/18 16:00 DCW (Rec: 11/26/18 16:45 DCW [id number]) Balance Tests Garza Balance Test Garza Balance Test Score 50/56 Garza Impairment Rating 1 to 19% Impaired (Score 45-55 ) mCTSIB mCTSIB Position 1 Slight Sway mCTSIB Position 2 Mild Sway mCTSIB Position 3 Mild Sway mCTSIB Position 4 Moderate Sway Garza Balance Assessment Evaluation Sitting to Standing Ability Independent w/out Hands Unsupported Stance Safely- 2 minutes Sitting Unsupported, Feet on Floor Safely- 2 minutes Standing to Sitting Ability Safely, Minimal Hand Use Transfer Ability Safely, Minimal Hand Use Unsupported Stance- Eyes Closed Safely, 10 seconds Unsupported Stance- Eyes Open Independent, 1 minute Reaching Forward Standing Safely, 5 inches Pick- Up Object From Floor Independent/Safe Look Behind Shoulder - Standing Shifts Weight Well Turning 360 Degrees Turns , < 4 secs Unsupported Stance, Alternating Feet on (I)- 8 Steps in 20 secs Stair Unsupported Tandem Stance Holds Tandem- 30 seconds Unilateral Leg Stance Lifts Leg/Unable to Hold Total Score Garza Total Score (out of 56 points) 50 Garza Impairment Rating 1 to 19% Impaired (Score 45-55 ) PT-OP-E Functional Tests Start: 07/11/18 13:51 Freq: Status: Active Protocol: Document 11/26/18 16:00 DCW (Rec: 11/26/18 16:45 DCW [id number]) Functional Tests Dynamic Gait Index (DGI) Score 19 DGI Impairment Rating 20 to <40% Impaired (Score 15- 19) PT-OP-M Strength Start: 07/11/18 13:51 Freq: Status: Active Protocol: Document 11/26/18 16:00 DCW (Rec: 11/26/18 16:45 DCW [id number]) Ankle/Foot Strength Ankle and Foot Manual Muscle Testing Right Dorsiflexion (L4) 4 Good Plantarflexion (S1) 4 Good Left Dorsiflexion (L4) 3- Fair- Plantarflexion (S1) 4 Good PT-OP-Q Treatments Start: 07/11/18 13:51 Freq: Status: Active Protocol: Document 11/26/18 16:00 DCW (Rec: 11/26/18 17:46 DCW [id number]) Cardio Equipment Recumbent Stepper (Sci-Fit) Duration (Minutes) 8 Resistance 4 Neuro Re-Education Treatment Balance Activities 1 Details Balance Testing Comments DGI, mCTSIB, Garza Coordination Activities Toe placement Details Touching toes to target in sitting PT-OP-R Modalities Start: 07/11/18 13:51 Freq: Status: Active Protocol: Document 11/26/18 16:00 DCW (Rec: 11/26/18 17:46 DCW [id number]) Electric Stimulation Electric Stimulation Angolan Stimulation Body Location L Tib Anterior Duration (Minutes) 10 Intensity 53 Frequency 5 on/5 off Patient Position Sitting Comments Perform with DF PT-OP-T Assessment and Plan Start: 07/11/18 13:51 Freq: Status: Active Protocol: Document 11/26/18 16:00 DCW (Rec: 11/26/18 17:46 DCW [id number]) Physical Therapy Assessment Impairments Impairments Activity Tolerance Balance Gait Posture Sensation Strength Goals Four Impairment Dynamic Balance Gas Main Fitter Helper Goal (LTG) Pt to score 20/24 on DGI -11/26/18: 19 LTG Duration 01/21/19 Three Impairment Drop foot Gas Main Fitter Helper Goal (LTG) Pt to complete 2 MWT with no instances of drop foot LTG Duration 01/21/19 Two Impairment Activity participation Group Home Goal (LTG) Pt to return to working out safely at [facility] with no balance concerns -no change LTG Duration 01/21/19 One Impairment Pt has been non-compliant with previous home exercise programs Short Term Goal (STG) Pt to be independent and compliant with appropriate HEP -performing >50% of HEP daily STG Duration 12/22/18 Assessment Summary Assessment Pt seems to have largely plateaued, however pt was noticeably more fatigued than normal after his vacation, and his testing may be affected by this fatigue. Should reassess, particularly with DGI, at a later date after he is able to rest. Physical Therapy Plan Frequency and Duration Frequency of Treatment 2x/Week Duration of Treatment 8 weeks Plan of Care Start Date 11/26/18 Plan of Care End Date 01/21/19 Next Visit Focus/Plan Next Note Type Treatment Note Next Visit Plan cont. to advance dynamic standing balance, flexibility, and LE strengthening
--- NOTE | 2018-11-26 17:46 | PT.OPPOC ---
Current Diagnoses Other abnormalities of gait and mobility (11/26/18) Provider Visit Care Team Role Provider Type Main St MD Family Provider Non-Staff Primary Care Provider Specialty: Family Practice Address: [address] [place] [address], [address], [place], [address] Email: Karin Hawkins MD Attending Provider Non-Staff Specialty: Neurology Address: [address] [place] [address], [id number] Email: Plan Of Care PT-OP-T Assessment and Plan Start: 07/11/18 13:51 Freq: Status: Active Protocol: Document 11/26/18 16:00 DCW (Rec: 11/26/18 17:46 DCW [id number]) Physical Therapy Assessment Impairments Impairments Activity Tolerance Balance Gait Posture Sensation Strength Goals Four Impairment Dynamic Balance Aluminum Pool Installer Goal (LTG) Pt to score 20/24 on DGI -11/26/18: LTG Duration 01/21/19 Three Impairment Drop foot Aluminum Pool Installer Goal (LTG) Pt to complete 2 MWT with no instances of drop foot LTG Duration 01/21/19 Two Impairment Activity participation Aluminum Pool Installer Goal (LTG) Pt to return to working out safely at [facility] with no balance concerns -no change LTG Duration 01/21/19 One Impairment Pt has been non-compliant with previous home exercise programs Short Term Goal (STG) Pt to be independent and compliant with appropriate HEP -performing >50% of HEP daily STG Duration 12/22/18 Assessment Summary Assessment Pt seems to have largely plateaued, however pt was noticeably more fatigued than normal after his vacation, and his testing may be affected by this fatigue. Should reassess, particularly with DGI, at a later date after he is able to rest. Physical Therapy Plan Frequency and Duration Frequency of Treatment 2x/Week Duration of Treatment 8 weeks Plan of Care Start Date 11/26/18 Plan of Care End Date 01/21/19 Next Visit Focus/Plan Next Note Type Treatment Note Next Visit Plan cont. to advance dynamic standing balance, flexibility, and LE strengthening Plan of Care Dates Plan of Care Start Date 11/26/18 Plan of Care End Date 01/21/19 Please Sign and Return: I have reviewed this Plan of Care and certify that the skilled therapy services above are required to meet the patient?s needs. Physician Signature Date Printed Name and Credentials Clinical Instructor Signature Printed Name and Credentials
--- NOTE | 2018-11-28 11:14 | PT.OTN ---
Current Diagnoses Other abnormalities of gait and mobility (11/28/18) Physical Therapy Treatment Note PT-OP-A Visit Information Start: 07/11/18 13:51 Freq: Status: Active Protocol: Document 11/28/18 10:30 DCW (Rec: 11/28/18 11:14 DCW [id number]) Out-Patient Physical Therapy Visit Information Visit Information Visit Type Treatment Note Visit Start Time 10:30 Visit Stop Time 11:20 Total Visit Minutes 50 Visit Number 33 Number of CHECK WRITER Visits 0 Evaluation Information Evaluation Date 07/11/18 PT-OP-B Current Condition Start: 07/11/18 13:51 Freq: Status: Active Protocol: Document 07/11/18 11:15 DCW (Rec: 07/11/18 14:11 DCW [id number]) Current Condition History of Current Condition Onset Date Multi-year history Current Complaints Instability, core weakness, LE weakness, L drop foot, history of falls History of Current Condition Pt is an 82 year old male presenting with a multi-year history of imbalance, falls, and weakness. Pt has been seen at this facility multiple times previously, and admits that my biggest problem is that I have no self-discipline , and I never do what I'm supposed to do unless I'm coming in here. Admits that he has never developed any core strength, even though he knows that it would be a big help. 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 Pt notes that he had previously had drop foot in 2009 following chemo and radiation for prostate cancer, but it eventually went away on its own, and was never as bad as it is now. Pt also notes that he has neuropathy in both feet, but he believes that it has actually been improving, or at least it isn't bothering me as much. Prior Treatments and Tests Prior physical therapy sessions at this facility Treatment Goals Patient/Caregiver Goals Pt wants to improve his stability and core strength, and return to working out at [facility]. PT-OP-C Subjective Start: 07/11/18 13:51 Freq: Status: Active Protocol: Document 11/28/18 10:30 DCW (Rec: 11/28/18 11:14 DCW [id number]) OP-PT Subjective Patient Comments Patient Comments Pt feeling much less fatigued today, feels like he is recovered from his trip. PT-OP-D Balance Start: 07/11/18 13:51 Freq: Status: Active Protocol: Document 11/26/18 16:00 DCW (Rec: 11/26/18 16:45 DCW [id number]) Balance Tests Garza Balance Test Garza Balance Test Score 50/56 Garza Impairment Rating 1 to 19% Impaired (Score 45-55 ) mCTSIB mCTSIB Position 1 Slight Sway mCTSIB Position 2 Mild Sway mCTSIB Position 3 Mild Sway mCTSIB Position 4 Moderate Sway Garza Balance Assessment Evaluation Sitting to Standing Ability Independent w/out Hands Unsupported Stance Safely- 2 minutes Sitting Unsupported, Feet on Floor Safely- 2 minutes Standing to Sitting Ability Safely, Minimal Hand Use Transfer Ability Safely, Minimal Hand Use Unsupported Stance- Eyes Closed Safely, 10 seconds Unsupported Stance- Eyes Open Independent, 1 minute Reaching Forward Standing Safely, 5 inches Pick- Up Object From Floor Independent/Safe Look Behind Shoulder - Standing Shifts Weight Well Turning 360 Degrees Turns , < 4 secs Unsupported Stance, Alternating Feet on (I)- 8 Steps in 20 secs Stair Unsupported Tandem Stance Holds Tandem- 30 seconds Unilateral Leg Stance Lifts Leg/Unable to Hold Total Score Garza Total Score (out of 56 points) 50 Garza Impairment Rating 1 to 19% Impaired (Score 45-55 ) PT-OP-E Functional Tests Start: 07/11/18 13:51 Freq: Status: Active Protocol: Document 11/26/18 16:00 DCW (Rec: 11/26/18 16:45 DCW [id number]) Functional Tests Dynamic Gait Index (DGI) Score 19 DGI Impairment Rating 20 to <40% Impaired (Score 15- 19) PT-OP-M Strength Start: 07/11/18 13:51 Freq: Status: Active Protocol: Document 11/26/18 16:00 DCW (Rec: 11/26/18 16:45 DCW [id number]) Ankle/Foot Strength Ankle and Foot Manual Muscle Testing Right Dorsiflexion (L4) 4 Good Plantarflexion (S1) 4 Good Left Dorsiflexion (L4) 3- Fair- Plantarflexion (S1) 4 Good PT-OP-Q Treatments Start: 07/11/18 13:51 Freq: Status: Active Protocol: Document 11/28/18 10:30 DCW (Rec: 11/28/18 11:14 DCW [id number]) Cardio Equipment Recumbent Stepper (Sci-Fit) Duration (Minutes) 7 Resistance 4 Gym Equipment Shuttle Recovery Unilateral Squats Resistance 75# Shuttle Recovery Platform Stable Reps/Time x10 Bilateral Squats Resistance 112# Shuttle Recovery Platform Stable Reps/Time 2x10 Shuttle Balance Red Comments Wide AGUSTÍN (vs Perturbations, Eyes closed), Staggered stance /c ball toss Therapeutic Exercises Supine Exercises Figure 4 stretch Side bilateral Comments Manual Single KtC Supine Exercise Name Single KtC Side bilateral Comments Manual Hamstring Stretch Supine Exercise Name HS stretch Side bilateral Comments Manual Other Exercises Resisted Fwd/Retro walking Other Exercise Name Resisted Fwd/Retro Walking Resistance Green Equipment Used T-band Resisted Side-stepping Other Exercise Name Resisted Side-stepping Resistance Green Equipment Used T-band PT-OP-R Modalities Start: 07/11/18 13:51 Freq: Status: Active Protocol: Document 11/28/18 10:30 DCW (Rec: 11/28/18 11:14 DCW [id number]) Electric Stimulation Electric Stimulation Guatemalan Stimulation Body Location L Tib Anterior Duration (Minutes) 10 Intensity 50 Frequency 5 on/5 off Patient Position Sitting Comments Perform with DF PT-OP-T Assessment and Plan Start: 07/11/18 13:51 Freq: Status: Active Protocol: Document 11/28/18 10:30 DCW (Rec: 11/28/18 11:14 DCW [id number]) Physical Therapy Assessment Impairments Impairments Activity Tolerance Balance Gait Posture Sensation Strength Goals Four Impairment Dynamic Balance Data Developer Goal (LTG) Pt to score 20/24 on DGI -11/26/18: 19 LTG Duration 01/21/19 Three Impairment Drop foot Data Developer Goal (LTG) Pt to complete 2 MWT with no instances of drop foot LTG Duration 01/21/19 Two Impairment Activity participation Shelter Goal (LTG) Pt to return to working out safely at [employer] [employer] with no balance concerns -no change LTG Duration 01/21/19 One Impairment Pt has been non-compliant with previous home exercise programs Short Term Goal (STG) Pt to be independent and compliant with appropriate HEP -performing >50% of HEP daily STG Duration 12/22/18 Assessment Summary Assessment Pt performed much better today , was able to tolerate all activities without need of rest breaks. Physical Therapy Plan Frequency and Duration Frequency of Treatment 2x/Week Duration of Treatment 8 weeks Plan of Care Start Date 11/26/18 Plan of Care End Date 01/21/19 Next Visit Focus/Plan Next Note Type Treatment Note Next Visit Plan cont. to advance dynamic standing balance, flexibility, and LE strengthening
--- NOTE | 2018-12-03 13:21 | PT.OTN ---
Current Diagnoses Other abnormalities of gait and mobility (12/03/18) Physical Therapy Treatment Note PT-OP-A Visit Information Start: 07/11/18 13:51 Freq: Status: Active Protocol: Document 12/03/18 13:12 SA (Rec: 12/03/18 13:21 [email or web address]) Out-Patient Physical Therapy Visit Information Visit Information Visit Type Treatment Note Visit Start Time 12:17 Visit Stop Time 13:07 Total Visit Minutes 50 Visit Number 34 Number of MATHEMATICS PROFESSOR Visits 1 PT-OP-B Current Condition Start: 07/11/18 13:51 Freq: Status: Active Protocol: Document 07/11/18 11:15 DCW (Rec: 07/11/18 14:11 DCW [id number]) Current Condition History of Current Condition Onset Date Multi-year history Current Complaints Instability, core weakness, LE weakness, L drop foot, history of falls History of Current Condition Pt is an 82 year old male presenting with a multi-year history of imbalance, falls, and weakness. Pt has been seen at this facility multiple times previously, and admits that my biggest problem is that I have no self-discipline , and I never do what I'm supposed to do unless I'm coming in here. Admits that he has never developed any core strength, even though he knows that it would be a big help. 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 Pt notes that he had previously had drop foot in 2009 following chemo and radiation for prostate cancer, but it eventually went away on its own, and was never as bad as it is now. Pt also notes that he has neuropathy in both feet, but he believes that it has actually been improving, or at least it isn't bothering me as much. Prior Treatments and Tests Prior physical therapy sessions at this facility Treatment Goals Patient/Caregiver Goals Pt wants to improve his stability and core strength, and return to working out at [facility]. PT-OP-C Subjective Start: 07/11/18 13:51 Freq: Status: Active Protocol: Document 12/03/18 13:12 SA (Rec: 12/03/18 13:21 [email or web address]) OP-PT Subjective Patient Comments Patient Comments Pt feels pretty good today, just had a hot bath so pretty lose. PT-OP-D Balance Start: 07/11/18 13:51 Freq: Status: Active Protocol: Document 11/26/18 16:00 DCW (Rec: 11/26/18 16:45 DCW [id number]) Balance Tests Garza Balance Test Garza Balance Test Score 50/56 Garza Impairment Rating 1 to 19% Impaired (Score 45-55 ) mCTSIB mCTSIB Position 1 Slight Sway mCTSIB Position 2 Mild Sway mCTSIB Position 3 Mild Sway mCTSIB Position 4 Moderate Sway Garza Balance Assessment Evaluation Sitting to Standing Ability Independent w/out Hands Unsupported Stance Safely- 2 minutes Sitting Unsupported, Feet on Floor Safely- 2 minutes Standing to Sitting Ability Safely, Minimal Hand Use Transfer Ability Safely, Minimal Hand Use Unsupported Stance- Eyes Closed Safely, 10 seconds Unsupported Stance- Eyes Open Independent, 1 minute Reaching Forward Standing Safely, 5 inches Pick- Up Object From Floor Independent/Safe Look Behind Shoulder - Standing Shifts Weight Well Turning 360 Degrees Turns , < 4 secs Unsupported Stance, Alternating Feet on (I)- 8 Steps in 20 secs Stair Unsupported Tandem Stance Holds Tandem- 30 seconds Unilateral Leg Stance Lifts Leg/Unable to Hold Total Score Garza Total Score (out of 56 points) 50 Garza Impairment Rating 1 to 19% Impaired (Score 45-55 ) PT-OP-E Functional Tests Start: 07/11/18 13:51 Freq: Status: Active Protocol: Document 11/26/18 16:00 DCW (Rec: 11/26/18 16:45 DCW [id number]) Functional Tests Dynamic Gait Index (DGI) Score 19 DGI Impairment Rating 20 to <40% Impaired (Score 15- 19) PT-OP-M Strength Start: 07/11/18 13:51 Freq: Status: Active Protocol: Document 11/26/18 16:00 DCW (Rec: 11/26/18 16:45 DCW [id number]) Ankle/Foot Strength Ankle and Foot Manual Muscle Testing Right Dorsiflexion (L4) 4 Good Plantarflexion (S1) 4 Good Left Dorsiflexion (L4) 3- Fair- Plantarflexion (S1) 4 Good PT-OP-Q Treatments Start: 07/11/18 13:51 Freq: Status: Active Protocol: Document 12/03/18 13:12 SA (Rec: 12/03/18 13:21 SA [email or web address]) Cardio Equipment Recumbent Stepper (Sci-Fit) Duration (Minutes) 7 Resistance 4 Gym Equipment Shuttle Recovery Unilateral Squats Resistance 75# Shuttle Recovery Platform Stable Reps/Time 2 x 10 Bilateral Squats Resistance 112# Shuttle Recovery Platform Stable Reps/Time 2x10 Shuttle Balance Red Reps/Duration 5 min Comments Wide AGUSTÍN (vs Perturbations, Eyes closed), Staggered stance /c ball toss Therapeutic Exercises Supine Exercises Figure 4 stretch Side bilateral Comments Manual Single KtC Supine Exercise Name Single KtC Side bilateral Comments Manual Hamstring Stretch Supine Exercise Name HS stretch Side bilateral Comments Manual Standing Exercises hip ABD Side bilateral Resistance 4# Reps/Minutes 12x each Comments verbal/tactile cues for form 1 Standing Exercise Name Gastroc stretch Side bilateral Equipment Used EDDIE Reps/Minutes 2X40 Other Exercises Resisted Fwd/Retro walking Other Exercise Name Resisted Fwd/Retro Walking Resistance Green Equipment Used T-band Resisted Side-stepping Other Exercise Name Resisted Side-stepping Resistance Green Equipment Used T-band Neuro Re-Education Treatment Balance Activities Heel-toe Ambulation Surface level Reps/Duration 2 lengths Comments at bar PT-OP-R Modalities Start: 07/11/18 13:51 Freq: Status: Active Protocol: Document 12/03/18 13:12 (Rec: 12/03/18 13:21 [email or web address]) Electric Stimulation Electric Stimulation Japanese Stimulation Body Location L Tib Anterior Duration (Minutes) 10 Intensity 50 Frequency 5 on/5 off Comments Perform with DF PT-OP-T Assessment and Plan Start: 07/11/18 13:51 Freq: Status: Active Protocol: Document 12/03/18 13:12 (Rec: 12/03/18 13:21 [email or web address]) Physical Therapy Assessment Assessment Summary Assessment Pt completed exercise routine with no seted rest breaks required. Reports he hasn't tried getting on a horse lately. Physical Therapy Plan Next Visit Focus/Plan Next Note Type Treatment Note Next Visit Plan Cont to progress LE strengthening, dynamic balance and hip flexibility.
--- NOTE | 2018-12-05 15:11 | PT.OTN ---
Current Diagnoses Other abnormalities of gait and mobility (12/05/18) Physical Therapy Treatment Note PT-OP-A Visit Information Start: 07/11/18 13:51 Freq: Status: Active Protocol: Document 12/05/18 12:46 LRN (Rec: 12/05/18 13:38 LRN [id number]) Out-Patient Physical Therapy Visit Information Visit Information Visit Type Treatment Note Visit Note Visit 4 KX Visit Start Time 12:46 Visit Stop Time 13:42 Total Visit Minutes 56 Visit Number 35 Number of SPEECH PATHOLOGY SUPERVISOR Visits 0 Evaluation Information Evaluation Date 07/11/18 PT-OP-B Current Condition Start: 07/11/18 13:51 Freq: Status: Active Protocol: Document 07/11/18 11:15 DCW (Rec: 07/11/18 14:11 DCW [id number]) Current Condition History of Current Condition Onset Date Multi-year history Current Complaints Instability, core weakness, LE weakness, L drop foot, history of falls History of Current Condition Pt is an 82 year old male presenting with a multi-year history of imbalance, falls, and weakness. Pt has been seen at this facility multiple times previously, and admits that my biggest problem is that I have no self-discipline , and I never do what I'm supposed to do unless I'm coming in here. Admits that he has never developed any core strength, even though he knows that it would be a big help. 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 Pt notes that he had previously had drop foot in 2009 following chemo and radiation for prostate cancer, but it eventually went away on its own, and was never as bad as it is now. Pt also notes that he has neuropathy in both feet, but he believes that it has actually been improving, or at least it isn't bothering me as much. Prior Treatments and Tests Prior physical therapy sessions at this facility Treatment Goals Patient/Caregiver Goals Pt wants to improve his stability and core strength, and return to working out at [facility]. PT-OP-C Subjective Start: 07/11/18 13:51 Freq: Status: Active Protocol: Document 12/05/18 12:46 LRN (Rec: 12/05/18 13:38 LRN [id number]) OP-PT Subjective Patient Comments Patient Comments C/O pain in low back on first waking making it difficult to get moving in the morning. States his goal is to get flexible enough to get leg up to ride a horse. Last rode a couple weeks ago. Currently gets onto the horse using a riding. Weakness in LE's since 2012 & post back surgery 2014. Has tried strengthening with personal caregiver for 6 months. Now knows he has neuropathy, hence the L dropped foot PT-OP-D Balance Start: 07/11/18 13:51 Freq: Status: Active Protocol: Document 11/26/18 16:00 DCW (Rec: 11/26/18 16:45 DCW [id number]) Balance Tests Garza Balance Test Garza Balance Test Score 50/56 Garza Impairment Rating 1 to 19% Impaired (Score 45-55 ) mCTSIB mCTSIB Position 1 Slight Sway mCTSIB Position 2 Mild Sway mCTSIB Position 3 Mild Sway mCTSIB Position 4 Moderate Sway Garza Balance Assessment Evaluation Sitting to Standing Ability Independent w/out Hands Unsupported Stance Safely- 2 minutes Sitting Unsupported, Feet on Floor Safely- 2 minutes Standing to Sitting Ability Safely, Minimal Hand Use Transfer Ability Safely, Minimal Hand Use Unsupported Stance- Eyes Closed Safely, 10 seconds Unsupported Stance- Eyes Open Independent, 1 minute Reaching Forward Standing Safely, 5 inches Pick- Up Object From Floor Independent/Safe Look Behind Shoulder - Standing Shifts Weight Well Turning 360 Degrees Turns , < 4 secs Unsupported Stance, Alternating Feet on (I)- 8 Steps in 20 secs Stair Unsupported Tandem Stance Holds Tandem- 30 seconds Unilateral Leg Stance Lifts Leg/Unable to Hold Total Score Garza Total Score (out of 56 points) 50 Garza Impairment Rating 1 to 19% Impaired (Score 45-55 ) PT-OP-E Functional Tests Start: 07/11/18 13:51 Freq: Status: Active Protocol: Document 11/26/18 16:00 DCW (Rec: 11/26/18 16:45 DCW [id number]) Functional Tests Dynamic Gait Index (DGI) Score 19 DGI Impairment Rating 20 to <40% Impaired (Score 15- 19) PT-OP-M Strength Start: 07/11/18 13:51 Freq: Status: Active Protocol: Document 11/26/18 16:00 DCW (Rec: 11/26/18 16:45 DCW [id number]) Ankle/Foot Strength Ankle and Foot Manual Muscle Testing Right Dorsiflexion (L4) 4 Good Plantarflexion (S1) 4 Good Left Dorsiflexion (L4) 3- Fair- Plantarflexion (S1) 4 Good PT-OP-Q Treatments Start: 07/11/18 13:51 Freq: Status: Active Protocol: Document 12/05/18 12:46 LRN (Rec: 12/05/18 13:38 LRN [id number]) Cardio Equipment Recumbent Stepper (Sci-Fit) Duration (Minutes) 7 Resistance 4 Seat Position Seat 11 Gym Equipment Shuttle Recovery Unilateral Squats Resistance 75# Shuttle Recovery Platform Stable Reps/Time 3 x 10 Bilateral Squats Resistance 112#, 75# Shuttle Recovery Platform Stable Reps/Time 2x10, 10x respectively Therapeutic Exercises Supine Exercises Figure 4 stretch Side bilateral Reps/Minutes 60 stretch f/b active stretch x 10 Comments Immediately followed by active stretch Hamstring Stretch Supine Exercise Name Modified to add LE neural stretch Side bilateral Reps/Minutes 8' Comments Extra time taken for training. Sitting Exercises ankle DF Sitting Exercise Name Ankle DF Side left Reps/Minutes 1 x 10 Manual Therapy Treatment Soft Tissue Mobilization low back Body Location Bilateral Lumbar Paraspinals Intensity/Depth Moderate Body Position Prone Self-Care/Home Management Treatment Education Patient Education Body Mechanics Home Exercise Program Posture Other Education Positional training for sleeping at night. Discussed postures of sleeping to avoid. Discussed use of ex in the morning to decrease pain on getting out of bed. Discussed possible change in mattress. Activities Self-Care/Home Management Activities HEP issued and reviewed for hip stretches (Fig 4 and LE neural). PT-OP-R Modalities Start: 07/11/18 13:51 Freq: Status: Active Protocol: Document 12/05/18 12:46 LRN (Rec: 12/05/18 13:38 LRN [id number]) Electric Stimulation Electric Stimulation [place]ese Stimulation Body Location L Tib Anterior Duration (Minutes) 10 Intensity 58 Frequency 10 on/10 off Patient Position Sitting Comments Performed with DF PT-OP-T Assessment and Plan Start: 07/11/18 13:51 Freq: Status: Active Protocol: Document 12/05/18 12:46 LRN (Rec: 12/05/18 13:38 LRN [id number]) Physical Therapy Assessment Assessment Summary Assessment Pt has very poor core stability due to very weak Transverse Abdominus contractibility. Pt will benefit from abdominal (TA) strengthening and low back stretching to minimize low back pain. Possible poor mobility of sacrum and coccyx. Physical Therapy Plan Frequency and Duration Frequency of Treatment 2x/Week Duration of Treatment 8 weeks Plan of Care Start Date 11/26/18 Plan of Care End Date 01/21/19 Next Visit Focus/Plan Next Note Type Treatment Note Next Visit Plan Assess Sacral and Coccyx mobility, add abdominal core stabilization and cont to progress LE strengthening, dynamic balance and hip flexibility. Issue HEP for other hip flexibility ex's.
--- NOTE | 2018-12-10 13:28 | PT.OTN ---
Current Diagnoses Other abnormalities of gait and mobility (12/10/18) Physical Therapy Treatment Note PT-OP-A Visit Information Start: 07/11/18 13:51 Freq: Status: Active Protocol: Document 12/10/18 13:08 (Rec: 12/10/18 13:28 [email or web address]) Out-Patient Physical Therapy Visit Information Visit Information Visit Type Treatment Note Visit Start Time 12:15 Visit Stop Time 13:05 Total Visit Minutes 50 Visit Number 36 Number of GERMAN TUTOR Visits 1 PT-OP-B Current Condition Start: 07/11/18 13:51 Freq: Status: Active Protocol: Document 07/11/18 11:15 DCW (Rec: 07/11/18 14:11 DCW [id number]) Current Condition History of Current Condition Onset Date Multi-year history Current Complaints Instability, core weakness, LE weakness, L drop foot, history of falls History of Current Condition Pt is an 82 year old male presenting with a multi-year history of imbalance, falls, and weakness. Pt has been seen at this facility multiple times previously, and admits that my biggest problem is that I have no self-discipline , and I never do what I'm supposed to do unless I'm coming in here. Admits that he has never developed any core strength, even though he knows that it would be a big help. 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 Pt notes that he had previously had drop foot in 2009 following chemo and radiation for prostate cancer, but it eventually went away on its own, and was never as bad as it is now. Pt also notes that he has neuropathy in both feet, but he believes that it has actually been improving, or at least it isn't bothering me as much. Prior Treatments and Tests Prior physical therapy sessions at this facility Treatment Goals Patient/Caregiver Goals Pt wants to improve his stability and core strength, and return to working out at [facility]. PT-OP-C Subjective Start: 07/11/18 13:51 Freq: Status: Active Protocol: Document 12/10/18 13:08 (Rec: 12/10/18 13:28 [email or web address]) OP-PT Subjective Patient Comments Patient Comments Pt reports feeling sluggish today, has not been doing hip stretching at home but knows he needs to start. PT-OP-D Balance Start: 07/11/18 13:51 Freq: Status: Active Protocol: Document 11/26/18 16:00 DCW (Rec: 11/26/18 16:45 DCW [id number]) Balance Tests Garza Balance Test Garza Balance Test Score 50/56 Garza Impairment Rating 1 to 19% Impaired (Score 45-55 ) mCTSIB mCTSIB Position 1 Slight Sway mCTSIB Position 2 Mild Sway mCTSIB Position 3 Mild Sway mCTSIB Position 4 Moderate Sway Garza Balance Assessment Evaluation Sitting to Standing Ability Independent w/out Hands Unsupported Stance Safely- 2 minutes Sitting Unsupported, Feet on Floor Safely- 2 minutes Standing to Sitting Ability Safely, Minimal Hand Use Transfer Ability Safely, Minimal Hand Use Unsupported Stance- Eyes Closed Safely, 10 seconds Unsupported Stance- Eyes Open Independent, 1 minute Reaching Forward Standing Safely, 5 inches Pick- Up Object From Floor Independent/Safe Look Behind Shoulder - Standing Shifts Weight Well Turning 360 Degrees Turns , < 4 secs Unsupported Stance, Alternating Feet on (I)- 8 Steps in 20 secs Stair Unsupported Tandem Stance Holds Tandem- 30 seconds Unilateral Leg Stance Lifts Leg/Unable to Hold Total Score Garza Total Score (out of 56 points) 50 Garza Impairment Rating 1 to 19% Impaired (Score 45-55 ) PT-OP-E Functional Tests Start: 07/11/18 13:51 Freq: Status: Active Protocol: Document 11/26/18 16:00 DCW (Rec: 11/26/18 16:45 DCW [id number]) Functional Tests Dynamic Gait Index (DGI) Score 19 DGI Impairment Rating 20 to <40% Impaired (Score 15- 19) PT-OP-M Strength Start: 07/11/18 13:51 Freq: Status: Active Protocol: Document 11/26/18 16:00 DCW (Rec: 11/26/18 16:45 DCW [id number]) Ankle/Foot Strength Ankle and Foot Manual Muscle Testing Right Dorsiflexion (L4) 4 Good Plantarflexion (S1) 4 Good Left Dorsiflexion (L4) 3- Fair- Plantarflexion (S1) 4 Good PT-OP-Q Treatments Start: 07/11/18 13:51 Freq: Status: Active Protocol: Document 12/10/18 13:08 SA (Rec: 12/10/18 13:28 [email or web address]) Cardio Equipment Recumbent Stepper (Sci-Fit) Duration (Minutes) 7 Resistance 5 Seat Position Seat 11 Gym Equipment Shuttle Recovery Unilateral Squats Resistance 75# Shuttle Recovery Platform Stable Reps/Time 3 x 10 Bilateral Squats Resistance 112#, 75# Shuttle Recovery Platform Stable Reps/Time 2x10, 10x respectively Shuttle Balance Red Reps/Duration 5 min Comments Tandem, NBOS, head turns and UE movements, eyes closed. Therapeutic Exercises Supine Exercises Figure 4 stretch Resistance HEP Single KtC Resistance HEP Hamstring Stretch Resistance HEP Sitting Exercises ankle DF Sitting Exercise Name Ankle DF Side left Reps/Minutes 1 x 10 Standing Exercises hip ABD Side bilateral Resistance 3# Reps/Minutes 15x Comments verbal/tactile cues for form 1 Standing Exercise Name Gastroc stretch Side bilateral Equipment Used EDDIE Reps/Minutes 2X40 Other Exercises Resisted Fwd/Retro walking Other Exercise Name Resisted Fwd/Retro Walking Resistance Green Equipment Used T-band Resisted Side-stepping Other Exercise Name Resisted Side-stepping Resistance Green Equipment Used T-band Neuro Re-Education Treatment Balance Activities Heel-toe Ambulation Surface level Reps/Duration 2 lengths Comments at bar, limited UE support SLS Surface even/balance pod Reps/Duration 5-10 at a time Comments Pt better balance with RLE vs LLE PT-OP-R Modalities Start: 07/11/18 13:51 Freq: Status: Active Protocol: Document 12/10/18 13:08 (Rec: 12/10/18 13:28 [email or web address]) Electric Stimulation Electric Stimulation Burmese Stimulation Body Location L Tib Anterior Duration (Minutes) 10 Intensity 58 Frequency 10 on/10 off Patient Position Sitting Comments Performed with DF PT-OP-T Assessment and Plan Start: 07/11/18 13:51 Freq: Status: Active Protocol: Document 12/10/18 13:08 (Rec: 12/10/18 13:28 [email or web address]) Physical Therapy Assessment Assessment Summary Assessment Focused on core engagement with exercise today, encouraged pt to do hip stretching at home so we can progress balance and strengthening program in clinic, pt has handouts for HEP. Physical Therapy Plan Next Visit Focus/Plan Next Note Type Treatment Note Next Visit Plan Assess Sacral and Coccyx mobility, add abdominal core stabilization and cont to progress LE strengthening, dynamic balance and hip flexibility. Issue HEP for other hip flexibility ex's.
--- NOTE | 2018-12-12 11:20 | PT.OTN ---
Current Diagnoses Other abnormalities of gait and mobility (12/12/18) Physical Therapy Treatment Note PT-OP-A Visit Information Start: 07/11/18 13:51 Freq: Status: Active Protocol: Document 12/12/18 11:20 DLM (Rec: 12/12/18 13:41 DLM [email or web address]) Out-Patient Physical Therapy Visit Information Visit Information Visit Type Treatment Note Visit Note KX needed Visit Start Time 11:20 Visit Stop Time 12:10 Total Visit Minutes 55 Visit Number 37 Number of MATERIALS DIRECTOR Visits 0 Evaluation Information Evaluation Date 07/11/18 PT-OP-B Current Condition Start: 07/11/18 13:51 Freq: Status: Active Protocol: Document 07/11/18 11:15 DCW (Rec: 07/11/18 14:11 DCW [id number]) Current Condition History of Current Condition Onset Date Multi-year history Current Complaints Instability, core weakness, LE weakness, L drop foot, history of falls History of Current Condition Pt is an 82 year old male presenting with a multi-year history of imbalance, falls, and weakness. Pt has been seen at this facility multiple times previously, and admits that my biggest problem is that I have no self-discipline , and I never do what I'm supposed to do unless I'm coming in here. Admits that he has never developed any core strength, even though he knows that it would be a big help. 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 Pt notes that he had previously had drop foot in 2009 following chemo and radiation for prostate cancer, but it eventually went away on its own, and was never as bad as it is now. Pt also notes that he has neuropathy in both feet, but he believes that it has actually been improving, or at least it isn't bothering me as much. Prior Treatments and Tests Prior physical therapy sessions at this facility Treatment Goals Patient/Caregiver Goals Pt wants to improve his stability and core strength, and return to working out at [facility]. PT-OP-C Subjective Start: 07/11/18 13:51 Freq: Status: Active Protocol: Document 12/12/18 11:20 DLM (Rec: 12/12/18 13:41 DLM [email or web address]) OP-PT Subjective Patient Comments Patient Comments He has difficulty getting on/ off horse due to having to step high even with use of extra strap system. He noted decreased balance when stepping forward in yard to trim elio sargent. PT-OP-D Balance Start: 07/11/18 13:51 Freq: Status: Active Protocol: Document 11/26/18 16:00 DCW (Rec: 11/26/18 16:45 DCW [id number]) Balance Tests Garza Balance Test Garza Balance Test Score 50/56 Garza Impairment Rating 1 to 19% Impaired (Score 45-55 ) mCTSIB mCTSIB Position 1 Slight Sway mCTSIB Position 2 Mild Sway mCTSIB Position 3 Mild Sway mCTSIB Position 4 Moderate Sway Garza Balance Assessment Evaluation Sitting to Standing Ability Independent w/out Hands Unsupported Stance Safely- 2 minutes Sitting Unsupported, Feet on Floor Safely- 2 minutes Standing to Sitting Ability Safely, Minimal Hand Use Transfer Ability Safely, Minimal Hand Use Unsupported Stance- Eyes Closed Safely, 10 seconds Unsupported Stance- Eyes Open Independent, 1 minute Reaching Forward Standing Safely, 5 inches Pick- Up Object From Floor Independent/Safe Look Behind Shoulder - Standing Shifts Weight Well Turning 360 Degrees Turns , < 4 secs Unsupported Stance, Alternating Feet on (I)- 8 Steps in 20 secs Stair Unsupported Tandem Stance Holds Tandem- 30 seconds Unilateral Leg Stance Lifts Leg/Unable to Hold Total Score Garza Total Score (out of 56 points) 50 Garza Impairment Rating 1 to 19% Impaired (Score 45-55 ) PT-OP-E Functional Tests Start: 07/11/18 13:51 Freq: Status: Active Protocol: Document 11/26/18 16:00 DCW (Rec: 11/26/18 16:45 DCW [id number]) Functional Tests Dynamic Gait Index (DGI) Score 19 DGI Impairment Rating 20 to <40% Impaired (Score 15- 19) PT-OP-M Strength Start: 07/11/18 13:51 Freq: Status: Active Protocol: Document 11/26/18 16:00 DCW (Rec: 11/26/18 16:45 DCW [id number]) Ankle/Foot Strength Ankle and Foot Manual Muscle Testing Right Dorsiflexion (L4) 4 Good Plantarflexion (S1) 4 Good Left Dorsiflexion (L4) 3- Fair- Plantarflexion (S1) 4 Good PT-OP-Q Treatments Start: 07/11/18 13:51 Freq: Status: Active Protocol: Document 12/12/18 11:20 DLM (Rec: 12/12/18 13:41 DLM [email or web address]) Cardio Equipment Recumbent Stepper (Sci-Fit) Duration (Minutes) 8 Resistance 6 Seat Position seat @12 Therapeutic Exercises Supine Exercises Figure 4 stretch Resistance HEP Single KtC Resistance HEP Hamstring Stretch Resistance HEP Sitting Exercises ankle DF Sitting Exercise Name Ankle DF Side left Reps/Minutes 1 x 10 reps Standing Exercises Step-Ups Standing Exercise Name high steps Side bilateral Equipment Used 10 step and 12 step Reps/Minutes 2 x 10 reps each step Comments UE support needed, simulated high step onto horse hip ABD Side bilateral Resistance 4# Reps/Minutes x 15 reps Comments verbal/tactile cues for form Ankle Plantar flexion Standing Exercise Name heel raises Side bilateral Reps/Minutes 2 x 10 reps 3 Standing Exercise Name standing toe raises (DF) Side bilateral Reps/Minutes 2 x 10 reps Comments UE support Other Exercises Resisted Fwd/Retro walking Other Exercise Name Resisted Fwd/Retro Walking Side bilateral Resistance Green Equipment Used T-band Reps/Minutes 2 laps at wall rail Resisted Side-stepping Other Exercise Name Resisted Side-stepping Resistance Green Equipment Used T-band Reps/Minutes 2 laps at wall rail Neuro Re-Education Treatment Balance Activities Heel-toe Ambulation Surface level Reps/Duration 2 lengths Comments at bar, limited UE support SLS Surface even Reps/Duration 5-10 at a time Comments Pt better balance with RLE vs LLE PT-OP-R Modalities Start: 07/11/18 13:51 Freq: Status: Active Protocol: Document 12/12/18 11:20 DLM (Rec: 12/12/18 13:41 DLM [email or web address]) Electric Stimulation Electric Stimulation [place] Stimulation Body Location L Tib Anterior Duration (Minutes) 10 Intensity 48 Frequency 10 on/10 off Patient Position Sitting Comments Performed with DF PT-OP-T Assessment and Plan Start: 07/11/18 13:51 Freq: Status: Active Protocol: Document 12/12/18 11:20 DLM (Rec: 12/12/18 13:41 DLM [email or web address]) Physical Therapy Assessment Impairments Impairments Activity Tolerance Balance Gait Posture Sensation Strength Goals Four Impairment Dynamic Balance Certified Lactation Educator Goal (LTG) Pt to score 20/24 on DGI -11/26/18: 1924 LTG Duration 01/21/19 Three Impairment Drop foot Certified Lactation Educator Goal (LTG) Pt to complete 2 MWT with no instances of drop foot LTG Duration 01/21/19 Two Impairment Activity participation Shelter Goal (LTG) Pt to return to working out safely at [facility] with no balance concerns -no change LTG Duration 01/21/19 One Impairment Pt has been non-compliant with previous home exercise programs Short Term Goal (STG) Pt to be independent and compliant with appropriate HEP -performing >50% of HEP daily STG Duration 12/22/18 Progress Towards Goals Progress Towards Goals Progressing Toward Goals Assessment Summary Assessment He reports increased effort with doing HEP but finds it difficult to stay consistent. He tolerated treatment well with fatigue. He shows good effort. His single limb standing balance on right improved with reps of activity . He has more difficulty with high stepping on left LE than right especially at the 12 step. Substitued high stepping instead of Shuttle machine today with pt's concern over doing high stepping to get onto a horse. Physical Therapy Plan Frequency and Duration Frequency of Treatment 2x/Week Duration of Treatment 8 weeks Plan of Care Start Date 11/26/18 Plan of Care End Date 01/21/19 Next Visit Focus/Plan Next Note Type Treatment Note Next Visit Plan focus on core stabalization as well as LE strengthening
--- NOTE | 2018-12-17 13:07 | PT.OTN ---
Current Diagnoses Other abnormalities of gait and mobility (12/17/18) Physical Therapy Treatment Note PT-OP-A Visit Information Start: 07/11/18 13:51 Freq: Status: Active Protocol: Document 12/17/18 12:00 HH (Rec: 12/17/18 13:07 HH [email or web address]) Out-Patient Physical Therapy Visit Information Visit Information Visit Type Treatment Note Visit Start Time 12:00 Visit Stop Time 12:45 Total Visit Minutes 45 Visit Number 38 Number of JET WORKER Visits 0 PT-OP-B Current Condition Start: 07/11/18 13:51 Freq: Status: Active Protocol: Document 07/11/18 11:15 DCW (Rec: 07/11/18 14:11 DCW [id number]) Current Condition History of Current Condition Onset Date Multi-year history Current Complaints Instability, core weakness, LE weakness, L drop foot, history of falls History of Current Condition Pt is an 82 year old male presenting with a multi-year history of imbalance, falls, and weakness. Pt has been seen at this facility multiple times previously, and admits that my biggest problem is that I have no self-discipline , and I never do what I'm supposed to do unless I'm coming in here. Admits that he has never developed any core strength, even though he knows that it would be a big help. 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 Pt notes that he had previously had drop foot in 2009 following chemo and radiation for prostate cancer, but it eventually went away on its own, and was never as bad as it is now. Pt also notes that he has neuropathy in both feet, but he believes that it has actually been improving, or at least it isn't bothering me as much. Prior Treatments and Tests Prior physical therapy sessions at this facility Treatment Goals Patient/Caregiver Goals Pt wants to improve his stability and core strength, and return to working out at [facility]. PT-OP-C Subjective Start: 07/11/18 13:51 Freq: Status: Active Protocol: Document 12/17/18 12:00 HH (Rec: 12/17/18 13:07 HH [email or web address]) OP-PT Subjective Patient Comments Patient Comments I just started Nerve Support Formula supplement to see if it helps my drop foot. It worked few years ago. PT-OP-D Balance Start: 07/11/18 13:51 Freq: Status: Active Protocol: Document 11/26/18 16:00 DCW (Rec: 11/26/18 16:45 DCW [id number]) Balance Tests Garza Balance Test Garza Balance Test Score 50/56 Garza Impairment Rating 1 to 19% Impaired (Score 45-55 ) mCTSIB mCTSIB Position 1 Slight Sway mCTSIB Position 2 Mild Sway mCTSIB Position 3 Mild Sway mCTSIB Position 4 Moderate Sway Garza Balance Assessment Evaluation Sitting to Standing Ability Independent w/out Hands Unsupported Stance Safely- 2 minutes Sitting Unsupported, Feet on Floor Safely- 2 minutes Standing to Sitting Ability Safely, Minimal Hand Use Transfer Ability Safely, Minimal Hand Use Unsupported Stance- Eyes Closed Safely, 10 seconds Unsupported Stance- Eyes Open Independent, 1 minute Reaching Forward Standing Safely, 5 inches Pick- Up Object From Floor Independent/Safe Look Behind Shoulder - Standing Shifts Weight Well Turning 360 Degrees Turns , < 4 secs Unsupported Stance, Alternating Feet on (I)- 8 Steps in 20 secs Stair Unsupported Tandem Stance Holds Tandem- 30 seconds Unilateral Leg Stance Lifts Leg/Unable to Hold Total Score Garza Total Score (out of 56 points) 50 Garza Impairment Rating 1 to 19% Impaired (Score 45-55 ) PT-OP-E Functional Tests Start: 07/11/18 13:51 Freq: Status: Active Protocol: Document 11/26/18 16:00 DCW (Rec: 11/26/18 16:45 DCW [id number]) Functional Tests Dynamic Gait Index (DGI) Score 19 DGI Impairment Rating 20 to <40% Impaired (Score 15- 19) PT-OP-M Strength Start: 07/11/18 13:51 Freq: Status: Active Protocol: Document 11/26/18 16:00 DCW (Rec: 11/26/18 16:45 DCW [id number]) Ankle/Foot Strength Ankle and Foot Manual Muscle Testing Right Dorsiflexion (L4) 4 Good Plantarflexion (S1) 4 Good Left Dorsiflexion (L4) 3- Fair- Plantarflexion (S1) 4 Good PT-OP-Q Treatments Start: 07/11/18 13:51 Freq: Status: Active Protocol: Document 12/17/18 12:00 HH (Rec: 12/17/18 13:07 [email or web address]) Cardio Equipment Recumbent Stepper (Sci-Fit) Duration (Minutes) 8 Resistance 6 Seat Position seat @12 Therapeutic Exercises Supine Exercises hip wiper Side bilateral Reps/Minutes 10 x 2 Comments focus on trunk rotation ankle DF Supine Exercise Name anti-gravity Side left Reps/Minutes 8 x 3 Sitting Exercises ankle DF Sitting Exercise Name Ankle DF Side left Reps/Minutes 1 x 10 reps Standing Exercises step over obed Side left Resistance hold on to R bar Reps/Minutes 20 x 2 Comments with slow control and hip flexion , DF Neuro Re-Education Treatment Balance Activities SLS Surface even Reps/Duration 5-10 at a time Comments Pt better balance with RLE vs LLE PT-OP-R Modalities Start: 07/11/18 13:51 Freq: Status: Active Protocol: Document 12/17/18 12:00 (Rec: 12/17/18 13:07 [email or web address]) Electric Stimulation Electric Stimulation [place] Citizen Stimulation Body Location L Tib Anterior Duration (Minutes) 10 Intensity 60 Frequency 10 on/10 off Patient Position Sitting Comments Performed with DF with LLE extended and rested on stool at antigravity positino strengthening PT-OP-T Assessment and Plan Start: 07/11/18 13:51 Freq: Status: Active Protocol: Document 12/17/18 12:00 (Rec: 12/17/18 13:07 [email or web address]) Physical Therapy Assessment Assessment Summary Assessment Pt stated his progress has been the same and feels like he is using his SPC more and more over the past few months. He started to take Nerve Support Formula supplement to see if it helps his drop foot since It helped few years ago . Tx focused on DF at antigravity position today. Physical Therapy Plan Next Visit Focus/Plan Next Note Type Treatment Note Next Visit Plan focus on core stabalization as well as LE strengthening
--- NOTE | 2019-01-01 14:35 | PT.OTN ---
Current Diagnoses Other abnormalities of gait and mobility (01/01/19) Physical Therapy Treatment Note PT-OP-A Visit Information Start: 07/11/18 13:51 Freq: Status: Active Protocol: Document 01/01/19 14:35 [facility] (Rec: 01/01/19 17:33 [facility] [email or web address]) Out-Patient Physical Therapy Visit Information Visit Information Visit Type Treatment Note Visit Note KX needed Visit Start Time 14:35 Visit Stop Time 15:25 Total Visit Minutes 50 Visit Number 39 Number of GENERATOR REBUILDER Visits 0 Evaluation Information Evaluation Date 07/11/18 PT-OP-B Current Condition Start: 07/11/18 13:51 Freq: Status: Active Protocol: Document 07/11/18 11:15 DCW (Rec: 07/11/18 14:11 DCW [id number]) Current Condition History of Current Condition Onset Date Multi-year history Current Complaints Instability, core weakness, LE weakness, L drop foot, history of falls History of Current Condition Pt is an 82 year old male presenting with a multi-year history of imbalance, falls, and weakness. Pt has been seen at this facility multiple times previously, and admits that my biggest problem is that I have no self-discipline , and I never do what I'm supposed to do unless I'm coming in here. Admits that he has never developed any core strength, even though he knows that it would be a big help. 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 Pt notes that he had previously had drop foot in 2009 following chemo and radiation for prostate cancer, but it eventually went away on its own, and was never as bad as it is now. Pt also notes that he has neuropathy in both feet, but he believes that it has actually been improving, or at least it isn't bothering me as much. Prior Treatments and Tests Prior physical therapy sessions at this facility Treatment Goals Patient/Caregiver Goals Pt wants to improve his stability and core strength, and return to working out at [employer]. PT-OP-C Subjective Start: 07/11/18 13:51 Freq: Status: Active Protocol: Document 01/01/19 14:35 [facility] (Rec: 01/01/19 17:33 [facility] [email or web address]) OP-PT Subjective Patient Comments Patient Comments Pt states that he has had lack of energy this past week, and constipation, but was able to have a BM this morning. PT-OP-D Balance Start: 07/11/18 13:51 Freq: Status: Active Protocol: Document 11/26/18 16:00 DCW (Rec: 11/26/18 16:45 DCW [id number]) Balance Tests Garza Balance Test Garza Balance Test Score 50/56 Garza Impairment Rating 1 to 19% Impaired (Score 45-55 ) mCTSIB mCTSIB Position 1 Slight Sway mCTSIB Position 2 Mild Sway mCTSIB Position 3 Mild Sway mCTSIB Position 4 Moderate Sway Garza Balance Assessment Evaluation Sitting to Standing Ability Independent w/out Hands Unsupported Stance Safely- 2 minutes Sitting Unsupported, Feet on Floor Safely- 2 minutes Standing to Sitting Ability Safely, Minimal Hand Use Transfer Ability Safely, Minimal Hand Use Unsupported Stance- Eyes Closed Safely, 10 seconds Unsupported Stance- Eyes Open Independent, 1 minute Reaching Forward Standing Safely, 5 inches Pick- Up Object From Floor Independent/Safe Look Behind Shoulder - Standing Shifts Weight Well Turning 360 Degrees Turns , < 4 secs Unsupported Stance, Alternating Feet on (I)- 8 Steps in 20 secs Stair Unsupported Tandem Stance Holds Tandem- 30 seconds Unilateral Leg Stance Lifts Leg/Unable to Hold Total Score Garza Total Score (out of 56 points) 50 Garza Impairment Rating 1 to 19% Impaired (Score 45-55 ) PT-OP-E Functional Tests Start: 07/11/18 13:51 Freq: Status: Active Protocol: Document 11/26/18 16:00 DCW (Rec: 11/26/18 16:45 DCW [id number]) Functional Tests Dynamic Gait Index (DGI) Score 19 DGI Impairment Rating 20 to <40% Impaired (Score 15- 19) PT-OP-M Strength Start: 07/11/18 13:51 Freq: Status: Active Protocol: Document 11/26/18 16:00 DCW (Rec: 11/26/18 16:45 DCW [id number]) Ankle/Foot Strength Ankle and Foot Manual Muscle Testing Right Dorsiflexion (L4) 4 Good Plantarflexion (S1) 4 Good Left Dorsiflexion (L4) 3- Fair- Plantarflexion (S1) 4 Good PT-OP-Q Treatments Start: 07/11/18 13:51 Freq: Status: Active Protocol: Document 01/01/19 14:35 RCC (Rec: 01/01/19 17:33 [facility] [email or web address]) Cardio Equipment Recumbent Stepper (Sci-Fit) Duration (Minutes) 8 Resistance 6 Seat Position seat @12 Gym Equipment Shuttle Recovery Unilateral Squats Resistance 62# Shuttle Recovery Platform Unstable Reps/Time x10, x5 Bilateral Squats Resistance 112# Shuttle Recovery Platform Unstable Reps/Time 2x10 Therapeutic Exercises Sitting Exercises ankle DF Sitting Exercise Name Ankle DF Side left Reps/Minutes 2 x 10 reps Standing Exercises Step-Ups Standing Exercise Name high steps Side bilateral Equipment Used 12 step Reps/Minutes 2 x 10 reps each Comments UE support needed, simulated high step onto horse Hamstring stretch Standing Exercise Name HS step stretch Side bilateral Resistance stairs Reps/Minutes 60 hold Other Exercises step over object Other Exercise Name stepping over 2 pillows stacked on ground in // bars Side bilateral Reps/Minutes x10 Comments gait belt PT-OP-R Modalities Start: 07/11/18 13:51 Freq: Status: Active Protocol: Document 01/01/19 14:35 RCC (Rec: 01/01/19 17:33 [facility] [id number]) Electric Stimulation Electric Stimulation [place] Stimulation Body Location L Tib Anterior Duration (Minutes) 10 Intensity 59 Frequency 10 on/10 off Patient Position Sitting Comments Performed with DF with LLE extended and rested on stool at antigravity positino strengthening PT-OP-T Assessment and Plan Start: 07/11/18 13:51 Freq: Status: Active Protocol: Document 01/01/19 14:35 [facility] (Rec: 01/01/19 17:33 [facility] [email or web address]) Physical Therapy Assessment Assessment Summary Assessment Pt with shortened step with RLE when attempted to step over objects today, as well as requiring increased amount of time to complete sets with SL LLE strengthening compared to the R. Physical Therapy Plan Frequency and Duration Frequency of Treatment 2x/Week Duration of Treatment 8 weeks Plan of Care Start Date 11/26/18 Plan of Care End Date 01/21/19 Next Visit Focus/Plan Next Note Type Treatment Note Next Visit Plan stepping over objects, standing balance, LE strengthening
--- NOTE | 2019-01-07 15:00 | PT.OTN ---
Current Diagnoses Other abnormalities of gait and mobility (01/07/19) Physical Therapy Treatment Note PT-OP-A Visit Information Start: 07/11/18 13:51 Freq: Status: Active Protocol: Document 01/07/19 13:31 LRN (Rec: 01/07/19 14:41 LRN [id number]) Out-Patient Physical Therapy Visit Information Visit Information Visit Type Treatment Note Visit Note KX needed Visit Start Time 13:31 Visit Stop Time 14:30 Total Visit Minutes 59 Visit Number 40 Number of GREIGE GOODS EXAMINER Visits 0 Evaluation Information Evaluation Date 07/11/18 PT-OP-B Current Condition Start: 07/11/18 13:51 Freq: Status: Active Protocol: Document 07/11/18 11:15 DCW (Rec: 07/11/18 14:11 DCW [id number]) Current Condition History of Current Condition Onset Date Multi-year history Current Complaints Instability, core weakness, LE weakness, L drop foot, history of falls History of Current Condition Pt is an 82 year old male presenting with a multi-year history of imbalance, falls, and weakness. Pt has been seen at this facility multiple times previously, and admits that my biggest problem is that I have no self-discipline , and I never do what I'm supposed to do unless I'm coming in here. Admits that he has never developed any core strength, even though he knows that it would be a big help. 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 Pt notes that he had previously had drop foot in 2009 following chemo and radiation for prostate cancer, but it eventually went away on its own, and was never as bad as it is now. Pt also notes that he has neuropathy in both feet, but he believes that it has actually been improving, or at least it isn't bothering me as much. Prior Treatments and Tests Prior physical therapy sessions at this facility Treatment Goals Patient/Caregiver Goals Pt wants to improve his stability and core strength, and return to working out at [facility]. PT-OP-C Subjective Start: 07/11/18 13:51 Freq: Status: Active Protocol: Document 01/07/19 13:31 LRN (Rec: 01/07/19 14:41 LRN [id number]) OP-PT Subjective Patient Comments Patient Comments States he was hospitalized last week for 3 days and had to return a day because of bloody stools. Now at home, but is still receiving medical care for GI issues. No change the foot drop issue. Is now on Mg and it is making him very tired. He reports less feeling of EStim at normal setting during treatment. Pt goal is to get on/off a horse without climbing on a mounting block, but he needs to strengthen his (pointing to quads) L leg muscles to in order to do the task. PT-OP-D Balance Start: 07/11/18 13:51 Freq: Status: Active Protocol: Document 11/26/18 16:00 DCW (Rec: 11/26/18 16:45 DCW [id number]) Balance Tests Garza Balance Test Garza Balance Test Score 50/56 Garza Impairment Rating 1 to 19% Impaired (Score 45-55 ) mCTSIB mCTSIB Position 1 Slight Sway mCTSIB Position 2 Mild Sway mCTSIB Position 3 Mild Sway mCTSIB Position 4 Moderate Sway Garza Balance Assessment Evaluation Sitting to Standing Ability Independent w/out Hands Unsupported Stance Safely- 2 minutes Sitting Unsupported, Feet on Floor Safely- 2 minutes Standing to Sitting Ability Safely, Minimal Hand Use Transfer Ability Safely, Minimal Hand Use Unsupported Stance- Eyes Closed Safely, 10 seconds Unsupported Stance- Eyes Open Independent, 1 minute Reaching Forward Standing Safely, 5 inches Pick- Up Object From Floor Independent/Safe Look Behind Shoulder - Standing Shifts Weight Well Turning 360 Degrees Turns , < 4 secs Unsupported Stance, Alternating Feet on (I)- 8 Steps in 20 secs Stair Unsupported Tandem Stance Holds Tandem- 30 seconds Unilateral Leg Stance Lifts Leg/Unable to Hold Total Score Garza Total Score (out of 56 points) 50 Garza Impairment Rating 1 to 19% Impaired (Score 45-55 ) PT-OP-E Functional Tests Start: 07/11/18 13:51 Freq: Status: Active Protocol: Document 11/26/18 16:00 DCW (Rec: 11/26/18 16:45 DCW [id number]) Functional Tests Dynamic Gait Index (DGI) Score 19 DGI Impairment Rating 20 to <40% Impaired (Score 15- 19) PT-OP-M Strength Start: 07/11/18 13:51 Freq: Status: Active Protocol: Document 11/26/18 16:00 DCW (Rec: 04/02/19 16:45 DCW [id number]) Ankle/Foot Strength Ankle and Foot Manual Muscle Testing Right Dorsiflexion (L4) 4 Good Plantarflexion (S1) 4 Good Left Dorsiflexion (L4) 3- Fair- Plantarflexion (S1) 4 Good PT-OP-Q Treatments Start: 07/11/18 13:51 Freq: Status: Active Protocol: Document 01/07/19 13:31 LRN (Rec: 01/07/19 14:41 LRN [id number]) Gym Equipment Shuttle Recovery Unilateral Squats Details L Unilateral squat Resistance 75#, 62# Shuttle Recovery Platform Unstable Reps/Time To fatigue and progressive WBing on the LLE at each weight Bilateral Squats Resistance 125# Shuttle Recovery Platform Stable Unstable Reps/Time 2x10 stable. To fatigue w/ unstable. Therapeutic Exercises Sitting Exercises Sit to Stand Sitting Exercise Name Sit to Stand Side bilateral Reps/Minutes 10x each ex and with each leg when scissored. Comments Feet lined up & feet scissored . L heel 4 behind top R toes, 3 behind on L Self-Care/Home Management Treatment Education Patient Education Home Exercise Program Activities Self-Care/Home Management Activities Pt I/S to do Sit to stand using both feet but weight bear more on left for LLE stengthening. Pt I/s in safe and proper exercise technique and advised pt not to practice with feet scissored due to instability with standing. Pt encouraged to be consistent with HEP in order to obtain goals set. PT-OP-R Modalities Start: 07/11/18 13:51 Freq: Status: Active Protocol: Document 01/07/19 13:31 LRN (Rec: 01/07/19 14:41 LRN [id number]) Electric Stimulation Electric Stimulation [place] Citizen Stimulation Body Location L Tib Anterior Duration (Minutes) 10 Intensity 59 Frequency 10 on/10 off Ramp 0.5 Patient Position Sitting Comments Performed with R ankle DF with LLE. Pt reported not the same intensity as usually felt . PT-OP-T Assessment and Plan Start: 07/11/18 13:51 Freq: Status: Active Protocol: Document 01/07/19 13:31 LRN (Rec: 01/07/19 14:41 LRN [id number]) Physical Therapy Assessment Goals Four Impairment Dynamic Balance Mcc Goal (LTG) Pt to score 20/24 on DGI -11/26/18: LTG Duration 01/21/19 Three Impairment Drop foot Engraver Wood Goal (LTG) Pt to complete 2 MWT with no instances of drop foot LTG Duration 01/21/19 Two Impairment Activity participation Engraver Wood Goal (LTG) Pt to return to working out safely at [facility] with no balance concerns -no change LTG Duration 01/21/19 One Impairment Pt has been non-compliant with previous home exercise programs Short Term Goal (STG) Pt to be independent and compliant with appropriate HEP -performing >50% of HEP daily STG Duration 12/22/18 Assessment Summary Assessment Pt appears slow in achieving goals. Pt reported primary goal is to be able to mount a horse without a mounting block , requiring him to need greater L quadriceps strength (according to the pt). Pt other medical issues may be hindering his ability to progress. Today he appears to have less sensation awareness with [place] Citizen Stim at previously set intensity level ; possibly from change in medications and increase in Magnesium(?). Pt is not being consistent with his HEP; therefore progression is slow or non-existant. Assessment of progression to goals is needed. Physical Therapy Plan Frequency and Duration Frequency of Treatment 2x/Week Duration of Treatment 8 weeks Plan of Care Start Date 11/26/18 Plan of Care End Date 01/21/19 Next Visit Focus/Plan Next Note Type Treatment Note Next Visit Plan Pt requests use of [place] Citizen Stim at end of treatment for L ankle DF strengthening. Pt had decreased awareness of E- Stim; therefore might perform on R as well as L to determine E-Stim level. Next appt is last appt scheduled; therefore reassess progression towards goals to determine if further therapy is appropriate. Progress pt on his HEP with handouts. Issue Sit to Stand ex if he is not doing at home. Cont with stepping over objects, standing balance, LE strengthening if appropriate based on goal re-assessment.
--- NOTE | 2019-01-09 13:48 | PT.OTN ---
Current Diagnoses Other abnormalities of gait and mobility (01/09/19) Physical Therapy Treatment Note PT-OP-A Visit Information Start: 07/11/18 13:51 Freq: Status: Active Protocol: Document 01/09/19 11:28 [facility] (Rec: 01/09/19 11:32 [facility] [id number]) Out-Patient Physical Therapy Visit Information Visit Information Visit Type Progress Note Visit Note KX needed Visit Start Time 11:20 Visit Stop Time 12:15 Total Visit Minutes 55 Visit Number 41 Number of COATING MACHINE OPERATOR HELPER Visits 0 PT-OP-B Current Condition Start: 07/11/18 13:51 Freq: Status: Active Protocol: Document 07/11/18 11:15 DCW (Rec: 07/11/18 14:11 DCW [id number]) Current Condition History of Current Condition Onset Date Multi-year history Current Complaints Instability, core weakness, LE weakness, L drop foot, history of falls History of Current Condition Pt is an 82 year old male presenting with a multi-year history of imbalance, falls, and weakness. Pt has been seen at this facility multiple times previously, and admits that my biggest problem is that I have no self-discipline , and I never do what I'm supposed to do unless I'm coming in here. Admits that he has never developed any core strength, even though he knows that it would be a big help. 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 Pt notes that he had previously had drop foot in 2009 following chemo and radiation for prostate cancer, but it eventually went away on its own, and was never as bad as it is now. Pt also notes that he has neuropathy in both feet, but he believes that it has actually been improving, or at least it isn't bothering me as much. Prior Treatments and Tests Prior physical therapy sessions at this facility Treatment Goals Patient/Caregiver Goals Pt wants to improve his stability and core strength, and return to working out at [facility]. PT-OP-C Subjective Start: 07/11/18 13:51 Freq: Status: Active Protocol: Document 01/09/19 11:28 [facility] (Rec: 01/09/19 11:32 [facility] [id number]) OP-PT Subjective Patient Comments Patient Comments Pt reports he feels like he is making progress PT-OP-D Balance Start: 07/11/18 13:51 Freq: Status: Active Protocol: Document 11/26/18 16:00 DCW (Rec: 11/26/18 16:45 DCW [id number]) Balance Tests Garza Balance Test Garza Balance Test Score 50/56 Garza Impairment Rating 1 to 19% Impaired (Score 45-55 ) mCTSIB mCTSIB Position 1 Slight Sway mCTSIB Position 2 Mild Sway mCTSIB Position 3 Mild Sway mCTSIB Position 4 Moderate Sway Garza Balance Assessment Evaluation Sitting to Standing Ability Independent w/out Hands Unsupported Stance Safely- 2 minutes Sitting Unsupported, Feet on Floor Safely- 2 minutes Standing to Sitting Ability Safely, Minimal Hand Use Transfer Ability Safely, Minimal Hand Use Unsupported Stance- Eyes Closed Safely, 10 seconds Unsupported Stance- Eyes Open Independent, 1 minute Reaching Forward Standing Safely, 5 inches Pick- Up Object From Floor Independent/Safe Look Behind Shoulder - Standing Shifts Weight Well Turning 360 Degrees Turns , < 4 secs Unsupported Stance, Alternating Feet on (I)- 8 Steps in 20 secs Stair Unsupported Tandem Stance Holds Tandem- 30 seconds Unilateral Leg Stance Lifts Leg/Unable to Hold Total Score Garza Total Score (out of 56 points) 50 Garza Impairment Rating 1 to 19% Impaired (Score 45-55 ) PT-OP-E Functional Tests Start: 07/11/18 13:51 Freq: Status: Active Protocol: Document 01/09/19 11:28 [facility] (Rec: 01/09/19 13:43 [facility] [id number]) Functional Tests 2 Minute Walk Test Distance 358 Device Used none Dynamic Gait Index (DGI) Score 21 DGI Impairment Rating 1 to <20% Impaired (Score 20- 23) Functional Gait Assessment Score 20 Functional Gait Assessment Impairment 20 to <40% Impaired (Score 19- Rating 24) PT-OP-M Strength Start: 07/11/18 13:51 Freq: Status: Active Protocol: Document 11/26/18 16:00 DCW (Rec: 11/26/18 16:45 DCW [id number]) Ankle/Foot Strength Ankle and Foot Manual Muscle Testing Right Dorsiflexion (L4) 4 Good Plantarflexion (S1) 4 Good Left Dorsiflexion (L4) 3- Fair- Plantarflexion (S1) 4 Good PT-OP-Q Treatments Start: 07/11/18 13:51 Freq: Status: Active Protocol: Document 01/09/19 11:28 [facility] (Rec: 01/09/19 13:43 [facility] [id number]) Cardio Equipment Recumbent Stepper (Sci-Fit) Duration (Minutes) 8 Resistance 4 Gym Equipment Shuttle Balance Red Details fwd & side WBOS & fwd NBOS Comments w/head turns PT-OP-R Modalities Start: 07/11/18 13:51 Freq: Status: Active Protocol: Document 01/09/19 11:28 [facility] (Rec: 01/09/19 11:32 [facility] [id number]) Electric Stimulation Electric Stimulation [place] Stimulation Body Location L Tib Anterior Duration (Minutes) 10 Intensity 59 Frequency 10 on/10 off Ramp 0.5 Patient Position Sitting Comments Performed with R ankle DF with LLE. PT-OP-T Assessment and Plan Start: 07/11/18 13:51 Freq: Status: Active Protocol: Document 01/09/19 11:28 [facility] (Rec: 01/09/19 11:32 [facility] [id number]) Physical Therapy Assessment Goals balance Impairment FGA Halfway Goal (LTG) Pt to score 23/30 to show improved balance and dec fall risk LTG Duration 01/20/19 Four Impairment Dynamic Balance Halfway Goal (LTG) Pt to score 20/24 on DGI -11/26/18: LTG Duration 01/21/19 Three Impairment Drop foot Halfway Goal (LTG) Pt to complete 2 MWT with no instances of drop foot LTG Duration 01/21/19 Two Impairment Activity participation Solar Sales Goal (LTG) Pt to return to working out safely at [facility] with no balance concerns -no change LTG Duration 01/21/19 One Impairment Pt has been non-compliant with previous home exercise programs Short Term Goal (STG) Pt to be independent and compliant with appropriate HEP -performing >50% of HEP daily STG Duration 12/22/18 Physical Therapy Plan Frequency and Duration Frequency of Treatment 1x/Week Duration of Treatment 6 weeks Plan of Care Start Date 01/09/19 Plan of Care End Date 02/20/19 Therapeutic Interventions Therapeutic Interventions Aquatic Therapy Balance Training Gait Training Home Exercise Program Manual Therapy Neuromuscular Re-education Patient/Caregiver Education Self-Care/Home Management Soft Tissue Mobilization Taping Therapeutic Activities Therapeutic Exercises Modalities Cold Pack/Ice Massage Electric Stimulation Hot Packs Ultrasound Next Visit Focus/Plan Next Note Type Treatment Note Next Visit Plan stepping over objects, standing balance, LE strengthening
--- NOTE | 2019-01-09 13:48 | PT.OPPOC ---
Current Diagnoses Other abnormalities of gait and mobility (01/09/19) Provider Visit Care Team Role Provider Type Main St MD Family Provider Non-Staff Primary Care Provider Specialty: Family Practice Address: [address] [place] [address], [address], [place], [address] Email: Karin Hawkins MD Attending Provider Non-Staff Specialty: Neurology Address: [address] [place] [address], [id number] Email: Plan Of Care PT-OP-T Assessment and Plan Start: 07/11/18 13:51 Freq: Status: Active Protocol: Document 01/09/19 11:28 [facility] (Rec: 01/09/19 11:32 [facility] [id number]) Physical Therapy Assessment Goals balance Impairment FGA Correction Goal (LTG) Pt to score 23/30 to show improved balance and dec fall risk LTG Duration 01/20/19 Four Impairment Dynamic Balance Correction Goal (LTG) Pt to score 20/24 on DGI -11/26/18: LTG Duration 01/21/19 Three Impairment Drop foot Correction Goal (LTG) Pt to complete 2 MWT with no instances of drop foot LTG Duration 01/21/19 Two Impairment Activity participation Product Marketing Director Goal (LTG) Pt to return to working out safely at [facility] with no balance concerns -no change LTG Duration 01/21/19 One Impairment Pt has been non-compliant with previous home exercise programs Short Term Goal (STG) Pt to be independent and compliant with appropriate HEP -performing >50% of HEP daily STG Duration 12/22/18 Physical Therapy Plan Frequency and Duration Frequency of Treatment 1x/Week Duration of Treatment 6 weeks Plan of Care Start Date 01/09/19 Plan of Care End Date 02/20/19 Therapeutic Interventions Therapeutic Interventions Aquatic Therapy Balance Training Gait Training Home Exercise Program Manual Therapy Neuromuscular Re-education Patient/Caregiver Education Self-Care/Home Management Soft Tissue Mobilization Taping Therapeutic Activities Therapeutic Exercises Modalities Cold Pack/Ice Massage Electric Stimulation Hot Packs Ultrasound Next Visit Focus/Plan Next Note Type Treatment Note Next Visit Plan stepping over objects, standing balance, LE strengthening Plan of Care Dates Plan of Care Start Date 01/09/19 Plan of Care End Date 02/20/19 Please Sign and Return: I have reviewed this Plan of Care and certify that the skilled therapy services above are required to meet the patient?s needs. Physician Signature Date Printed Name and Credentials Clinical Instructor Signature Printed Name and Credentials
--- NOTE | 2019-01-14 14:32 | PT.OTN ---
Current Diagnoses Other abnormalities of gait and mobility (01/14/19) Physical Therapy Treatment Note PT-OP-A Visit Information Start: 07/11/18 13:51 Freq: Status: Active Protocol: Document 01/14/19 13:45 DCW (Rec: 01/14/19 14:32 DCW [id number]) Out-Patient Physical Therapy Visit Information Visit Information Visit Type Treatment Note Visit Note KX needed Visit Start Time 13:45 Visit Stop Time 14:40 Total Visit Minutes 55 Visit Number 42 Number of TIRE FIXER Visits 0 Evaluation Information Evaluation Date 07/11/18 PT-OP-B Current Condition Start: 07/11/18 13:51 Freq: Status: Active Protocol: Document 07/11/18 11:15 DCW (Rec: 07/11/18 14:11 DCW [id number]) Current Condition History of Current Condition Onset Date Multi-year history Current Complaints Instability, core weakness, LE weakness, L drop foot, history of falls History of Current Condition Pt is an 82 year old male presenting with a multi-year history of imbalance, falls, and weakness. Pt has been seen at this facility multiple times previously, and admits that my biggest problem is that I have no self-discipline , and I never do what I'm supposed to do unless I'm coming in here. Admits that he has never developed any core strength, even though he knows that it would be a big help. 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 Pt notes that he had previously had drop foot in 2009 following chemo and radiation for prostate cancer, but it eventually went away on its own, and was never as bad as it is now. Pt also notes that he has neuropathy in both feet, but he believes that it has actually been improving, or at least it isn't bothering me as much. Prior Treatments and Tests Prior physical therapy sessions at this facility Treatment Goals Patient/Caregiver Goals Pt wants to improve his stability and core strength, and return to working out at [facility]. PT-OP-C Subjective Start: 07/11/18 13:51 Freq: Status: Active Protocol: Document 01/14/19 13:45 DCW (Rec: 01/14/19 14:32 DCW [id number]) OP-PT Subjective Patient Comments Patient Comments Pt notes he is still feeling the effects of his recent GI issues. Notes he has recently noticed his left PT-OP-D Balance Start: 07/11/18 13:51 Freq: Status: Active Protocol: Document 11/26/18 16:00 DCW (Rec: 11/26/18 16:45 DCW [id number]) Balance Tests Garza Balance Test Garza Balance Test Score 50/56 Garza Impairment Rating 1 to 19% Impaired (Score 45-55 ) mCTSIB mCTSIB Position 1 Slight Sway mCTSIB Position 2 Mild Sway mCTSIB Position 3 Mild Sway mCTSIB Position 4 Moderate Sway Garza Balance Assessment Evaluation Sitting to Standing Ability Independent w/out Hands Unsupported Stance Safely- 2 minutes Sitting Unsupported, Feet on Floor Safely- 2 minutes Standing to Sitting Ability Safely, Minimal Hand Use Transfer Ability Safely, Minimal Hand Use Unsupported Stance- Eyes Closed Safely, 10 seconds Unsupported Stance- Eyes Open Independent, 1 minute Reaching Forward Standing Safely, 5 inches Pick- Up Object From Floor Independent/Safe Look Behind Shoulder - Standing Shifts Weight Well Turning 360 Degrees Turns , < 4 secs Unsupported Stance, Alternating Feet on (I)- 8 Steps in 20 secs Stair Unsupported Tandem Stance Holds Tandem- 30 seconds Unilateral Leg Stance Lifts Leg/Unable to Hold Total Score Garza Total Score (out of 56 points) 50 Garza Impairment Rating 1 to 19% Impaired (Score 45-55 ) PT-OP-E Functional Tests Start: 07/11/18 13:51 Freq: Status: Active Protocol: Document 01/09/19 11:28 [facility] (Rec: 01/09/19 13:43 [facility] [id number]) Functional Tests 2 Minute Walk Test Distance 358 Device Used none Dynamic Gait Index (DGI) Score 21 DGI Impairment Rating 1 to <20% Impaired (Score 20- 23) Functional Gait Assessment Score 20 Functional Gait Assessment Impairment 20 to <40% Impaired (Score 19- Rating 24) PT-OP-M Strength Start: 07/11/18 13:51 Freq: Status: Active Protocol: Document 11/26/18 16:00 DCW (Rec: 11/26/18 16:45 DCW [id number]) Ankle/Foot Strength Ankle and Foot Manual Muscle Testing Right Dorsiflexion (L4) 4 Good Plantarflexion (S1) 4 Good Left Dorsiflexion (L4) 3- Fair- Plantarflexion (S1) 4 Good PT-OP-Q Treatments Start: 07/11/18 13:51 Freq: Status: Active Protocol: Document 01/14/19 13:45 DCW (Rec: 01/14/19 14:32 DCW [id number]) Cardio Equipment Recumbent Stepper (Sci-Fit) Duration (Minutes) 8 Resistance 6 Seat Position 12 Gym Equipment Shuttle Recovery Unilateral Squats Resistance 75# Shuttle Recovery Platform Unstable Reps/Time To fatigue Bilateral Squats Resistance 125# Shuttle Recovery Platform Stable Reps/Time 2x10 Shuttle Balance Red Details WBOS, Staggered Stance Comments EO/EC, Ball Toss Therapeutic Exercises Standing Exercises Step-Ups Standing Exercise Name step-ups Side bilateral Equipment Used 6 step Reps/Minutes 2 x 10 reps each Comments UE support needed, simulated high step onto horse Other Exercises Resisted Side-stepping Other Exercise Name Resisted Side-stepping Resistance Blue Equipment Used T-band Reps/Minutes 2 laps at wall rail PT-OP-R Modalities Start: 07/11/18 13:51 Freq: Status: Active Protocol: Document 01/14/19 13:45 DCW (Rec: 01/14/19 14:32 DCW [id number]) Electric Stimulation Electric Stimulation [place]i Stimulation Body Location L Tib Anterior Duration (Minutes) 10 Intensity 41 Frequency 10 on/10 off Ramp 0.5 Patient Position Sitting Comments Performed with R ankle DF with LLE. PT-OP-T Assessment and Plan Start: 07/11/18 13:51 Freq: Status: Active Protocol: Document 01/14/19 13:45 DCW (Rec: 01/14/19 14:32 DCW [id number]) Physical Therapy Assessment Goals balance Impairment FGA Painter Set Goal (LTG) Pt to score 23/30 to show improved balance and dec fall risk LTG Duration 01/20/19 Four Impairment Dynamic Balance Residential Goal (LTG) Pt to score 20/24 on DGI -11/26/18: LTG Duration 01/21/19 Three Impairment Drop foot Painter Set Goal (LTG) Pt to complete 2 MWT with no instances of drop foot LTG Duration 01/21/19 Two Impairment Activity participation Residential Goal (LTG) Pt to return to working out safely at [employer] with no balance concerns -no change LTG Duration 01/21/19 One Impairment Pt has been non-compliant with previous home exercise programs Short Term Goal (STG) Pt to be independent and compliant with appropriate HEP -performing >50% of HEP daily STG Duration 12/22/18 Assessment Summary Assessment Pt likely approaching progress plateau, will likely benefit from a shift to independent home/gym exercise program, if pt is agreeable to working independently. Physical Therapy Plan Frequency and Duration Frequency of Treatment 1x/Week Duration of Treatment 6 weeks Plan of Care Start Date 01/09/19 Plan of Care End Date 02/20/19 Therapeutic Interventions Therapeutic Interventions Aquatic Therapy Balance Training Gait Training Home Exercise Program Manual Therapy Neuromuscular Re-education Patient/Caregiver Education Self-Care/Home Management Soft Tissue Mobilization Taping Therapeutic Activities Therapeutic Exercises Modalities Cold Pack/Ice Massage Electric Stimulation Hot Packs Ultrasound Next Visit Focus/Plan Next Note Type Treatment Note Next Visit Plan stepping over objects, standing balance, LE strengthening
--- NOTE | 2019-01-28 15:15 | PT.OTN ---
Current Diagnoses Other abnormalities of gait and mobility (01/28/19) Physical Therapy Treatment Note PT-OP-A Visit Information Start: 07/11/18 13:51 Freq: Status: Active Protocol: Document 01/28/19 15:15 DLM (Rec: 01/28/19 17:29 DLM [id number]) Out-Patient Physical Therapy Visit Information Visit Information Visit Type Treatment Note Visit Note KX needed Visit Start Time 15:15 Visit Stop Time 16:10 Total Visit Minutes 55 Visit Number 43 Number of QUALITY FACILITATOR Visits 0 Evaluation Information Evaluation Date 07/11/18 PT-OP-B Current Condition Start: 07/11/18 13:51 Freq: Status: Active Protocol: Document 07/11/18 11:15 DCW (Rec: 07/11/18 14:11 DCW [id number]) Current Condition History of Current Condition Onset Date Multi-year history Current Complaints Instability, core weakness, LE weakness, L drop foot, history of falls History of Current Condition Pt is an 82 year old male presenting with a multi-year history of imbalance, falls, and weakness. Pt has been seen at this facility multiple times previously, and admits that my biggest problem is that I have no self-discipline , and I never do what I'm supposed to do unless I'm coming in here. Admits that he has never developed any core strength, even though he knows that it would be a big help. 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 Pt notes that he had previously had drop foot in 2009 following chemo and radiation for prostate cancer, but it eventually went away on its own, and was never as bad as it is now. Pt also notes that he has neuropathy in both feet, but he believes that it has actually been improving, or at least it isn't bothering me as much. Prior Treatments and Tests Prior physical therapy sessions at this facility Treatment Goals Patient/Caregiver Goals Pt wants to improve his stability and core strength, and return to working out at [facility]. PT-OP-C Subjective Start: 07/11/18 13:51 Freq: Status: Active Protocol: Document 01/28/19 15:15 DLM (Rec: 01/28/19 17:29 DLM [id number]) OP-PT Subjective Patient Comments Patient Comments He is scheduled for a cardiac stress test on 02/04 on the treadmill and he is not sure he can do the treadmill. He wants to try it today. He feels his left ankle is getting stronger. Patient Reported Progress Improving OP-PT Pain Assessment Home Pain Medication Use Pain Medications Used Yes: started again on Neurontin Comments Pain Comments he reports his neuropathy symptoms have moved down his LE to below the ankles, left ankle still feels weak PT-OP-D Balance Start: 07/11/18 13:51 Freq: Status: Active Protocol: Document 11/26/18 16:00 DCW (Rec: 11/26/18 16:45 [facility] [id number]) Balance Tests Garza Balance Test Garza Balance Test Score 50/56 Garza Impairment Rating 1 to 19% Impaired (Score 45-55 ) mCTSIB mCTSIB Position 1 Slight Sway mCTSIB Position 2 Mild Sway mCTSIB Position 3 Mild Sway mCTSIB Position 4 Moderate Sway Garza Balance Assessment Evaluation Sitting to Standing Ability Independent w/out Hands Unsupported Stance Safely- 2 minutes Sitting Unsupported, Feet on Floor Safely- 2 minutes Standing to Sitting Ability Safely, Minimal Hand Use Transfer Ability Safely, Minimal Hand Use Unsupported Stance- Eyes Closed Safely, 10 seconds Unsupported Stance- Eyes Open Independent, 1 minute Reaching Forward Standing Safely, 5 inches Pick- Up Object From Floor Independent/Safe Look Behind Shoulder - Standing Shifts Weight Well Turning 360 Degrees Turns , < 4 secs Unsupported Stance, Alternating Feet on (I)- 8 Steps in 20 secs Stair Unsupported Tandem Stance Holds Tandem- 30 seconds Unilateral Leg Stance Lifts Leg/Unable to Hold Total Score Garza Total Score (out of 56 points) 50 Garza Impairment Rating 1 to 19% Impaired (Score 45-55 ) PT-OP-E Functional Tests Start: 07/11/18 13:51 Freq: Status: Active Protocol: Document 01/09/19 11:28 [facility] (Rec: 01/09/19 13:43 [facility] [id number]) Functional Tests 2 Minute Walk Test Distance 358 Device Used none Dynamic Gait Index (DGI) Score 21 DGI Impairment Rating 1 to <20% Impaired (Score 20- 23) Functional Gait Assessment Score 20 Functional Gait Assessment Impairment 20 to <40% Impaired (Score 19- Rating 24) PT-OP-M Strength Start: 07/11/18 13:51 Freq: Status: Active Protocol: Document 11/26/18 16:00 DCW (Rec: 11/26/18 16:45 DCW [id number]) Ankle/Foot Strength Ankle and Foot Manual Muscle Testing Right Dorsiflexion (L4) 4 Good Plantarflexion (S1) 4 Good Left Dorsiflexion (L4) 3- Fair- Plantarflexion (S1) 4 Good PT-OP-Q Treatments Start: 07/11/18 13:51 Freq: Status: Active Protocol: Document 01/28/19 15:15 DLM (Rec: 01/28/19 17:29 DLM [id number]) Cardio Equipment Recumbent Stepper (Sci-Fit) Duration (Minutes) 8 Resistance 6 Seat Position 12 Treadmill Duration (Minutes) 3 Speed 1.5 Incline 0 Other pt able to safely keep pace on the machine with UE support bilaterally Gym Equipment Shuttle Recovery Unilateral Squats Resistance 75# Shuttle Recovery Platform Stable Unstable Reps/Time To fatigue Bilateral Squats Resistance 125# Shuttle Recovery Platform Stable Reps/Time 2x10 reps Therapeutic Exercises Sitting Exercises ankle DF Sitting Exercise Name Ankle DF Side left Reps/Minutes 2 x 10 reps Comments pt to do alphabet at home Other Exercises Resisted Side-stepping Other Exercise Name Resisted Side-stepping Resistance Blue Equipment Used T-band Reps/Minutes 2 laps at wall rail Neuro Re-Education Treatment Balance Activities Tandem Stance Surface firm Equipment // bars Reps/Duration 3 reps each side Heel-toe Ambulation Surface firm Equipment // bars Reps/Duration 2 laps SLS Surface firm Equipment // bars Reps/Duration 3 reps each LE Self-Care/Home Management Treatment Education Patient Education Home Exercise Program Other Education discussed HEP options including exercises classes and return to [facility], pt is unsure what he will be motivated to continue on his own. PT-OP-R Modalities Start: 07/11/18 13:51 Freq: Status: Active Protocol: Document 01/28/19 15:15 DLM (Rec: 01/28/19 17:29 DLM [id number]) Electric Stimulation Electric Stimulation Monegasque Stimulation Body Location L Tib Anterior Duration (Minutes) 10 Intensity 51 Frequency 10 on/10 off Ramp 0.5 Patient Position Sitting Comments Performed with R ankle DF with LLE. PT-OP-T Assessment and Plan Start: 07/11/18 13:51 Freq: Status: Active Protocol: Document 01/28/19 15:15 DLM (Rec: 01/28/19 17:29 DLM [id number]) Physical Therapy Assessment Goals balance Impairment FGA Medical Records Manager Goal (LTG) Pt to score 23/30 to show improved balance and dec fall risk LTG Duration 02/20/19 Four Impairment Dynamic Balance Medical Records Manager Goal (LTG) Pt to score 20/24 on DGI -11/26/18: LTG Duration 02/21/19 Three Impairment Drop foot Medical Records Manager Goal (LTG) Pt to complete 2 MWT with no instances of drop foot LTG Duration 02/21/19 Two Impairment Activity participation Medical Records Manager Goal (LTG) Pt to return to working out safely at [employer] with no balance concerns -no change LTG Duration 02/21/19 One Impairment Pt has been non-compliant with previous home exercise programs Short Term Goal (STG) Pt to be independent and compliant with appropriate HEP -performing >50% of HEP daily STG Duration 02/21/19 Assessment Summary Assessment He tolerated treatment well. He feels the Estim continues to help. He reports continued difficulty getting himself to do a HEP. His primary interest is to ride horses. Will continue to encourage him to establish a HEP that he can continue after PT discharge. Physical Therapy Plan Frequency and Duration Frequency of Treatment 1x/Week Duration of Treatment 6 weeks Plan of Care Start Date 01/09/19 Plan of Care End Date 02/20/19 Therapeutic Interventions Therapeutic Interventions Aquatic Therapy Balance Training Gait Training Home Exercise Program Manual Therapy Neuromuscular Re-education Patient/Caregiver Education Self-Care/Home Management Soft Tissue Mobilization Taping Therapeutic Activities Therapeutic Exercises Modalities Cold Pack/Ice Massage Electric Stimulation Hot Packs Ultrasound Next Visit Focus/Plan Next Note Type Treatment Note Next Visit Plan stepping up and over, will Not be continuing treadmill since it was only a trial before his cardiac testing
--- NOTE | 2019-02-05 16:02 | PT.OTN ---
Current Diagnoses Other abnormalities of gait and mobility (02/05/19) Physical Therapy Treatment Note PT-OP-A Visit Information Start: 07/11/18 13:51 Freq: Status: Active Protocol: Document 02/05/19 15:30 DCW (Rec: 02/05/19 16:02 DCW [id number]) Out-Patient Physical Therapy Visit Information Visit Information Visit Type Treatment Note Visit Note Pt arrived 15 minutes late KX needed Visit Start Time 15:30 Visit Stop Time 16:10 Total Visit Minutes 40 Visit Number 44 Number of VARNISH COOKER Visits 0 Evaluation Information Evaluation Date 07/11/18 PT-OP-B Current Condition Start: 07/11/18 13:51 Freq: Status: Active Protocol: Document 07/11/18 11:15 DCW (Rec: 07/11/18 14:11 DCW [id number]) Current Condition History of Current Condition Onset Date Multi-year history Current Complaints Instability, core weakness, LE weakness, L drop foot, history of falls History of Current Condition Pt is an 82 year old male presenting with a multi-year history of imbalance, falls, and weakness. Pt has been seen at this facility multiple times previously, and admits that my biggest problem is that I have no self-discipline , and I never do what I'm supposed to do unless I'm coming in here. Admits that he has never developed any core strength, even though he knows that it would be a big help. 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 Pt notes that he had previously had drop foot in 2009 following chemo and radiation for prostate cancer, but it eventually went away on its own, and was never as bad as it is now. Pt also notes that he has neuropathy in both feet, but he believes that it has actually been improving, or at least it isn't bothering me as much. Prior Treatments and Tests Prior physical therapy sessions at this facility Treatment Goals Patient/Caregiver Goals Pt wants to improve his stability and core strength, and return to working out at [facility]. PT-OP-C Subjective Start: 07/11/18 13:51 Freq: Status: Active Protocol: Document 02/05/19 15:30 DCW (Rec: 02/05/19 16:02 DCW [id number]) OP-PT Subjective Patient Comments Patient Comments Pt reports he is concerned about the results of his stress test yesterday, because he heard from his physician, who wants to meet with him tomorrow to go over it. Pt also notes he has been put back on Gabapentin. PT-OP-D Balance Start: 07/11/18 13:51 Freq: Status: Active Protocol: Document 11/26/18 16:00 DCW (Rec: 11/26/18 16:45 DCW [id number]) Balance Tests Garza Balance Test Garza Balance Test Score 50/56 Garza Impairment Rating 1 to 19% Impaired (Score 45-55 ) mCTSIB mCTSIB Position 1 Slight Sway mCTSIB Position 2 Mild Sway mCTSIB Position 3 Mild Sway mCTSIB Position 4 Moderate Sway Garza Balance Assessment Evaluation Sitting to Standing Ability Independent w/out Hands Unsupported Stance Safely- 2 minutes Sitting Unsupported, Feet on Floor Safely- 2 minutes Standing to Sitting Ability Safely, Minimal Hand Use Transfer Ability Safely, Minimal Hand Use Unsupported Stance- Eyes Closed Safely, 10 seconds Unsupported Stance- Eyes Open Independent, 1 minute Reaching Forward Standing Safely, 5 inches Pick- Up Object From Floor Independent/Safe Look Behind Shoulder - Standing Shifts Weight Well Turning 360 Degrees Turns , < 4 secs Unsupported Stance, Alternating Feet on (I)- 8 Steps in 20 secs Stair Unsupported Tandem Stance Holds Tandem- 30 seconds Unilateral Leg Stance Lifts Leg/Unable to Hold Total Score Garza Total Score (out of 56 points) 50 Garza Impairment Rating 1 to 19% Impaired (Score 45-55 ) PT-OP-E Functional Tests Start: 07/11/18 13:51 Freq: Status: Active Protocol: Document 01/09/19 11:28 [facility] (Rec: 01/09/19 13:43 [facility] [id number]) Functional Tests 2 Minute Walk Test Distance 358 Device Used none Dynamic Gait Index (DGI) Score 21 DGI Impairment Rating 1 to <20% Impaired (Score 20- 23) Functional Gait Assessment Score 20 Functional Gait Assessment Impairment 20 to <40% Impaired (Score 19- Rating 24) PT-OP-M Strength Start: 07/11/18 13:51 Freq: Status: Active Protocol: Document 11/26/18 16:00 DCW (Rec: 11/26/18 16:45 DCW [id number]) Ankle/Foot Strength Ankle and Foot Manual Muscle Testing Right Dorsiflexion (L4) 4 Good Plantarflexion (S1) 4 Good Left Dorsiflexion (L4) 3- Fair- Plantarflexion (S1) 4 Good PT-OP-Q Treatments Start: 07/11/18 13:51 Freq: Status: Active Protocol: Document 02/05/19 15:30 DCW (Rec: 02/05/19 16:02 DCW [id number]) Cardio Equipment Recumbent Stepper (Sci-Fit) Duration (Minutes) 8 Resistance 8 Seat Position 11 Gym Equipment Shuttle Balance Red Details WBOS, Staggered Stance Comments EO/EC, Ball Toss Therapeutic Exercises Sitting Exercises ankle DF Sitting Exercise Name Ankle DF Side left Reps/Minutes 2 x 10 reps Comments pt to do alphabet at home Neuro Re-Education Treatment Balance Activities Hurdles/Foam Details Hurdles/Foam PT-OP-R Modalities Start: 07/11/18 13:51 Freq: Status: Active Protocol: Document 02/05/19 15:30 DCW (Rec: 02/05/19 16:02 DCW [id number]) Electric Stimulation Electric Stimulation Romanian Stimulation Body Location L Tib Anterior Duration (Minutes) 10 Intensity 50 Frequency 10 on/10 off Ramp 0.5 Patient Position Sitting Comments Performed with R ankle DF with LLE. PT-OP-T Assessment and Plan Start: 07/11/18 13:51 Freq: Status: Active Protocol: Document 02/05/19 15:30 DCW (Rec: 02/05/19 16:02 DCW [id number]) Physical Therapy Assessment Goals balance Impairment FGA Care Home Goal (LTG) Pt to score 23/30 to show improved balance and dec fall risk LTG Duration 02/20/19 Four Impairment Dynamic Balance Protozoology Teacher Goal (LTG) Pt to score 20/24 on DGI -11/26/18: LTG Duration 02/21/19 Three Impairment Drop foot Protozoology Teacher Goal (LTG) Pt to complete 2 MWT with no instances of drop foot LTG Duration 02/21/19 Two Impairment Activity participation Protozoology Teacher Goal (LTG) Pt to return to working out safely at [facility] with no balance concerns -no change LTG Duration 02/21/19 One Impairment Pt has been non-compliant with previous home exercise programs Short Term Goal (STG) Pt to be independent and compliant with appropriate HEP -performing >50% of HEP daily STG Duration 02/21/19 Assessment Summary Assessment Pt fatigued today, distracted with how his appointment on Sunday for his stress test follow up will go. Physical Therapy Plan Frequency and Duration Frequency of Treatment 1x/Week Duration of Treatment 6 weeks Plan of Care Start Date 01/09/19 Plan of Care End Date 02/20/19 Therapeutic Interventions Therapeutic Interventions Aquatic Therapy Balance Training Gait Training Home Exercise Program Manual Therapy Neuromuscular Re-education Patient/Caregiver Education Self-Care/Home Management Soft Tissue Mobilization Taping Therapeutic Activities Therapeutic Exercises Modalities Cold Pack/Ice Massage Electric Stimulation Hot Packs Ultrasound Next Visit Focus/Plan Next Note Type Treatment Note Next Visit Plan stepping over objects, standing balance, LE strengthening
--- NOTE | 2019-02-26 13:22 | PT.OTN ---
Current Diagnoses Other abnormalities of gait and mobility (02/26/19) Physical Therapy Treatment Note PT-OP-A Visit Information Start: 07/11/18 13:51 Freq: Status: Active Protocol: Document 02/26/19 10:30 DCW (Rec: 02/26/19 13:22 DC [id number]) Out-Patient Physical Therapy Visit Information Visit Information Visit Type Progress Note Visit Start Time 10:30 Visit Stop Time 11:25 Total Visit Minutes 55 Visit Number 45 Number of TRANS ROUTER Visits 0 Evaluation Information Evaluation Date 07/11/18 PT-OP-B Current Condition Start: 07/11/18 13:51 Freq: Status: Active Protocol: Document 07/11/18 11:15 DCW (Rec: 07/11/18 14:11 DCW [id number]) Current Condition History of Current Condition Onset Date Multi-year history Current Complaints Instability, core weakness, LE weakness, L drop foot, history of falls History of Current Condition Pt is an 82 year old male presenting with a multi-year history of imbalance, falls, and weakness. Pt has been seen at this facility multiple times previously, and admits that my biggest problem is that I have no self-discipline , and I never do what I'm supposed to do unless I'm coming in here. Admits that he has never developed any core strength, even though he knows that it would be a big help. 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 Pt notes that he had previously had drop foot in 2009 following chemo and radiation for prostate cancer, but it eventually went away on its own, and was never as bad as it is now. Pt also notes that he has neuropathy in both feet, but he believes that it has actually been improving, or at least it isn't bothering me as much. Prior Treatments and Tests Prior physical therapy sessions at this facility Treatment Goals Patient/Caregiver Goals Pt wants to improve his stability and core strength, and return to working out at [facility]. PT-OP-C Subjective Start: 07/11/18 13:51 Freq: Status: Active Protocol: Document 02/26/19 10:30 DCW (Rec: 02/26/19 13:22 DCW [id number]) OP-PT Subjective Patient Comments Patient Comments Pt returns from his vacation to [place], reports he had a very good time, but was still unable to get up onto his horse under his own power, and ended up just having his son lift him up. PT-OP-D Balance Start: 07/11/18 13:51 Freq: Status: Active Protocol: Document 11/26/18 16:00 DCW (Rec: 11/26/18 16:45 DCW [id number]) Balance Tests Garza Balance Test Garza Balance Test Score 50/56 Garza Impairment Rating 1 to 19% Impaired (Score 45-55 ) mCTSIB mCTSIB Position 1 Slight Sway mCTSIB Position 2 Mild Sway mCTSIB Position 3 Mild Sway mCTSIB Position 4 Moderate Sway Garza Balance Assessment Evaluation Sitting to Standing Ability Independent w/out Hands Unsupported Stance Safely- 2 minutes Sitting Unsupported, Feet on Floor Safely- 2 minutes Standing to Sitting Ability Safely, Minimal Hand Use Transfer Ability Safely, Minimal Hand Use Unsupported Stance- Eyes Closed Safely, 10 seconds Unsupported Stance- Eyes Open Independent, 1 minute Reaching Forward Standing Safely, 5 inches Pick- Up Object From Floor Independent/Safe Look Behind Shoulder - Standing Shifts Weight Well Turning 360 Degrees Turns , < 4 secs Unsupported Stance, Alternating Feet on (I)- 8 Steps in 20 secs Stair Unsupported Tandem Stance Holds Tandem- 30 seconds Unilateral Leg Stance Lifts Leg/Unable to Hold Total Score Garza Total Score (out of 56 points) 50 Garza Impairment Rating 1 to 19% Impaired (Score 45-55 ) PT-OP-E Functional Tests Start: 07/11/18 13:51 Freq: Status: Active Protocol: Document 02/26/19 10:30 DCW (Rec: 02/26/19 11:15 DCW [id number]) Functional Tests 2 Minute Walk Test Distance 358 Device Used none Dynamic Gait Index (DGI) Score 19/24 DGI Impairment Rating 20 to <40% Impaired (Score 15- 19) Functional Gait Assessment Score 20/30 Functional Gait Assessment Impairment 20 to <40% Impaired (Score 19- Rating 24) PT-OP-M Strength Start: 07/11/18 13:51 Freq: Status: Active Protocol: Document 02/26/19 10:30 DCW (Rec: 02/26/19 11:15 DCW [id number]) Hip Strength Hip Manual Muscle Testing Right Flexion (L2) 5 Normal Abduction 5 Normal Adduction 4+ Good+ Left Flexion (L2) 5 Normal Abduction 5 Normal Adduction 4+ Good+ Knee Strength Knee Manual Muscle Testing Right Flexion (S2) 5 Normal Extension (L3) 5 Normal Left Flexion (S2) 4+ Good+ Extension (L3) 4+ Good+ Ankle/Foot Strength Ankle and Foot Manual Muscle Testing Right Dorsiflexion (L4) 4+ Good+ Plantarflexion (S1) 4+ Good+ Left Dorsiflexion (L4) 3 Fair Plantarflexion (S1) 4 Good PT-OP-Q Treatments Start: 07/11/18 13:51 Freq: Status: Active Protocol: Document 02/26/19 10:30 DCW (Rec: 02/26/19 13:22 DCW [id number]) Cardio Equipment Recumbent Stepper (Sci-Fit) Duration (Minutes) 8 Resistance 8 Seat Position 11 Neuro Re-Education Treatment Balance Activities 1 Details Testing Comments 2 MWT, DGI, FGA, MMT PT-OP-R Modalities Start: 07/11/18 13:51 Freq: Status: Active Protocol: Document 02/26/19 10:30 DCW (Rec: 02/26/19 13:22 DCW [id number]) Electric Stimulation Electric Stimulation Malian Stimulation Body Location L Tib Anterior Duration (Minutes) 10 Intensity 56 Frequency 5 on/5 off Ramp 0.5 Patient Position Sitting Comments Performed with L ankle DF with LLE. PT-OP-T Assessment and Plan Start: 07/11/18 13:51 Freq: Status: Active Protocol: Document 02/26/19 10:30 DCW (Rec: 02/26/19 13:22 DCW [id number]) Physical Therapy Assessment Goals balance Impairment FGA Fci Goal (LTG) Pt to score 23/30 to show improved balance and dec fall risk - No change LTG Duration 03/12/19 Four Impairment Dynamic Balance Data Center Technician Goal (LTG) Pt to score 20/24 on DGI -02/26/19: LTG Duration 03/12/19 Three Impairment Drop foot Data Center Technician Goal (LTG) Pt to complete 2 MWT with no instances of drop foot LTG Duration Met Two Impairment Activity participation Fci Goal (LTG) Pt to return to working out safely at [facility] with no balance concerns -no change LTG Duration 03/12/19 One Impairment Pt has been non-compliant with previous home exercise programs Short Term Goal (STG) Pt to be independent and compliant with appropriate HEP -performing >50% of HEP daily STG Duration 03/12/19 Assessment Summary Assessment Pt scored exactly the same score on the 2 MWT, DGI, and FGA tests. Pt's MMT grossly the same. Pt admits he has not been consistent with his home exercise program. Pt has two more scheduled appointments, which will be used to focus on setting up an appropriate HEP that he will hopefully continue independently, however will then likely be discharged due to progress plateau. Physical Therapy Plan Frequency and Duration Frequency of Treatment 1x/Week Duration of Treatment 4 weeks Plan of Care Start Date 02/26/19 Plan of Care End Date 03/26/19 Therapeutic Interventions Therapeutic Interventions Aquatic Therapy Balance Training Gait Training Home Exercise Program Manual Therapy Neuromuscular Re-education Patient/Caregiver Education Self-Care/Home Management Soft Tissue Mobilization Taping Therapeutic Activities Therapeutic Exercises Modalities Cold Pack/Ice Massage Electric Stimulation Hot Packs Ultrasound Next Visit Focus/Plan Next Note Type Treatment Note Next Visit Plan stepping over objects, standing balance, LE strengthening
--- NOTE | 2019-02-26 13:22 | PT.OPPOC ---
Current Diagnoses Other abnormalities of gait and mobility (02/26/19) Provider Visit Care Team Role Provider Type Main St MD Family Provider Non-Staff Primary Care Provider Specialty: Family Practice Address: [address] [place] [address], [address], [place], [address] Email: Karin Hawkins MD Attending Provider Non-Staff Specialty: Neurology Address: [address] [place] [address], [id number] Email: Plan Of Care PT-OP-T Assessment and Plan Start: 07/11/18 13:51 Freq: Status: Active Protocol: Document 02/26/19 10:30 DCW (Rec: 02/26/19 13:22 DCW [id number]) Physical Therapy Assessment Goals balance Impairment FGA Museum Registrar Goal (LTG) Pt to score 23/30 to show improved balance and dec fall risk - No change LTG Duration 03/12/19 Four Impairment Dynamic Balance Alf Goal (LTG) Pt to score 20/24 on DGI -02/26/19: 19 LTG Duration 03/12/19 Three Impairment Drop foot Alf Goal (LTG) Pt to complete 2 MWT with no instances of drop foot LTG Duration Met Two Impairment Activity participation Alf Goal (LTG) Pt to return to working out safely at [facility] with no balance concerns -no change LTG Duration 03/12/19 One Impairment Pt has been non-compliant with previous home exercise programs Short Term Goal (STG) Pt to be independent and compliant with appropriate HEP -performing >50% of HEP daily STG Duration 03/12/19 Assessment Summary Assessment Pt scored exactly the same score on the 2 MWT, DGI, and FGA tests. Pt's MMT grossly the same. Pt admits he has not been consistent with his home exercise program. Pt has two more scheduled appointments, which will be used to focus on setting up an appropriate HEP that he will hopefully continue independently, however will then likely be discharged due to progress plateau. Physical Therapy Plan Frequency and Duration Frequency of Treatment 1x/Week Duration of Treatment 4 weeks Plan of Care Start Date 02/26/19 Plan of Care End Date 03/26/19 Therapeutic Interventions Therapeutic Interventions Aquatic Therapy Balance Training Gait Training Home Exercise Program Manual Therapy Neuromuscular Re-education Patient/Caregiver Education Self-Care/Home Management Soft Tissue Mobilization Taping Therapeutic Activities Therapeutic Exercises Modalities Cold Pack/Ice Massage Electric Stimulation Hot Packs Ultrasound Next Visit Focus/Plan Next Note Type Treatment Note Next Visit Plan stepping over objects, standing balance, LE strengthening Plan of Care Dates Plan of Care Start Date 02/26/19 Plan of Care End Date 03/26/19 Please Sign and Return: I have reviewed this Plan of Care and certify that the skilled therapy services above are required to meet the patient?s needs. Physician Signature Date Printed Name and Credentials Clinical Instructor Signature Printed Name and Credentials
--- NOTE | 2019-03-05 15:16 | PT.OTN ---
Current Diagnoses Other abnormalities of gait and mobility (03/05/19) Physical Therapy Treatment Note PT-OP-A Visit Information Start: 07/11/18 13:51 Freq: Status: Active Protocol: Document 03/05/19 15:07 (Rec: 03/05/19 15:15 SA [email or web address]) Out-Patient Physical Therapy Visit Information Visit Information Visit Type Treatment Note Visit Start Time 13:45 Visit Stop Time 14:35 Total Visit Minutes 50 Visit Number 50 Number of BUTTON TUFTING MACHINE OPERATOR Visits 1 PT-OP-B Current Condition Start: 07/11/18 13:51 Freq: Status: Active Protocol: Document 07/11/18 11:15 DCW (Rec: 07/11/18 14:11 DCW [id number]) Current Condition History of Current Condition Onset Date Multi-year history Current Complaints Instability, core weakness, LE weakness, L drop foot, history of falls History of Current Condition Pt is an 82 year old male presenting with a multi-year history of imbalance, falls, and weakness. Pt has been seen at this facility multiple times previously, and admits that my biggest problem is that I have no self-discipline , and I never do what I'm supposed to do unless I'm coming in here. Admits that he has never developed any core strength, even though he knows that it would be a big help. 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 Pt notes that he had previously had drop foot in 2009 following chemo and radiation for prostate cancer, but it eventually went away on its own, and was never as bad as it is now. Pt also notes that he has neuropathy in both feet, but he believes that it has actually been improving, or at least it isn't bothering me as much. Prior Treatments and Tests Prior physical therapy sessions at this facility Treatment Goals Patient/Caregiver Goals Pt wants to improve his stability and core strength, and return to working out at [facility]. PT-OP-C Subjective Start: 07/11/18 13:51 Freq: Status: Active Protocol: Document 03/05/19 15:07 SA (Rec: 03/05/19 15:15 SA [email or web address]) OP-PT Subjective Patient Comments Patient Comments Pt states he feels about the same, still inconsistent with HEP but cycles occasionally. PT-OP-D Balance Start: 07/11/18 13:51 Freq: Status: Active Protocol: Document 11/26/18 16:00 DCW (Rec: 11/26/18 16:45 DCW [id number]) Balance Tests Garza Balance Test Garza Balance Test Score 50/56 Garza Impairment Rating 1 to 19% Impaired (Score 45-55 ) mCTSIB mCTSIB Position 1 Slight Sway mCTSIB Position 2 Mild Sway mCTSIB Position 3 Mild Sway mCTSIB Position 4 Moderate Sway Garza Balance Assessment Evaluation Sitting to Standing Ability Independent w/out Hands Unsupported Stance Safely- 2 minutes Sitting Unsupported, Feet on Floor Safely- 2 minutes Standing to Sitting Ability Safely, Minimal Hand Use Transfer Ability Safely, Minimal Hand Use Unsupported Stance- Eyes Closed Safely, 10 seconds Unsupported Stance- Eyes Open Independent, 1 minute Reaching Forward Standing Safely, 5 inches Pick- Up Object From Floor Independent/Safe Look Behind Shoulder - Standing Shifts Weight Well Turning 360 Degrees Turns , < 4 secs Unsupported Stance, Alternating Feet on (I)- 8 Steps in 20 secs Stair Unsupported Tandem Stance Holds Tandem- 30 seconds Unilateral Leg Stance Lifts Leg/Unable to Hold Total Score Garza Total Score (out of 56 points) 50 Garza Impairment Rating 1 to 19% Impaired (Score 45-55 ) PT-OP-E Functional Tests Start: 07/11/18 13:51 Freq: Status: Active Protocol: Document 02/26/19 10:30 DCW (Rec: 02/26/19 11:15 DCW [id number]) Functional Tests 2 Minute Walk Test Distance 358 Device Used none Dynamic Gait Index (DGI) Score 19/24 DGI Impairment Rating 20 to <40% Impaired (Score 15- 19) Functional Gait Assessment Score 20/30 Functional Gait Assessment Impairment 20 to <40% Impaired (Score 19- Rating 24) PT-OP-M Strength Start: 07/11/18 13:51 Freq: Status: Active Protocol: Document 02/26/19 10:30 DCW (Rec: 02/26/19 11:15 DCW [id number]) Hip Strength Hip Manual Muscle Testing Right Flexion (L2) 5 Normal Abduction 5 Normal Adduction 4+ Good+ Left Flexion (L2) 5 Normal Abduction 5 Normal Adduction 4+ Good+ Knee Strength Knee Manual Muscle Testing Right Flexion (S2) 5 Normal Extension (L3) 5 Normal Left Flexion (S2) 4+ Good+ Extension (L3) 4+ Good+ Ankle/Foot Strength Ankle and Foot Manual Muscle Testing Right Dorsiflexion (L4) 4+ Good+ Plantarflexion (S1) 4+ Good+ Left Dorsiflexion (L4) 3 Fair Plantarflexion (S1) 4 Good PT-OP-Q Treatments Start: 07/11/18 13:51 Freq: Status: Active Protocol: Document 03/05/19 15:07 SA (Rec: 03/05/19 15:15 SA [email or web address]) Cardio Equipment Recumbent Stepper (Sci-Fit) Duration (Minutes) 8 Resistance 8 Seat Position 11 Gym Equipment Shuttle Balance Red Details WBOS, Staggered Stance Reps/Duration 6 min Comments EO/EC, Ball Toss Therapeutic Exercises Standing Exercises step over obed Side bilateral Resistance hold on to R bar Reps/Minutes 20 x 2 Comments with slow control and hip flexion , DF hip ABD Side bilateral Resistance 4# Reps/Minutes x 15 reps Comments verbal/tactile cues for form Hamstring stretch Standing Exercise Name HS step stretch Side bilateral Resistance stairs Reps/Minutes 60 hold Other Exercises Resisted Fwd/Retro walking Other Exercise Name Resisted Fwd/Retro Walking Side bilateral Resistance Green Equipment Used T-band Reps/Minutes 2 laps at wall rail Resisted Side-stepping Other Exercise Name Resisted Side-stepping Resistance Blue Equipment Used T-band Reps/Minutes 2 laps at wall rail Neuro Re-Education Treatment Balance Activities Hurdles/Foam Details Hurdles/Foam Tandem Stance Surface firm Equipment // bars Reps/Duration 3 reps each side SLS Surface firm Equipment // bars Reps/Duration 3 reps each LE Comments Pt better balance with RLE vs LLE Other Activities unstable surface- walking Details walking on various foam and 1/ 2 pods with yoga mat over top Reps/Duration 10 laps Comments EO looking straight ahead in / / bars PT-OP-R Modalities Start: 07/11/18 13:51 Freq: Status: Active Protocol: Document 02/26/19 10:30 DCW (Rec: 02/26/19 13:22 DCW [id number]) Electric Stimulation Electric Stimulation Jamaican Stimulation Body Location L Tib Anterior Duration (Minutes) 10 Intensity 56 Frequency 5 on/5 off Ramp 0.5 Patient Position Sitting Comments Performed with L ankle DF with LLE. PT-OP-T Assessment and Plan Start: 07/11/18 13:51 Freq: Status: Active Protocol: Document 03/05/19 15:07 SA (Rec: 03/05/19 15:15 SA [email or web address]) Physical Therapy Assessment Assessment Summary Assessment Pt has HEP, may attend senoircise classes after PT and has TB at home for HEP. Physical Therapy Plan Next Visit Focus/Plan Next Note Type Treatment Note Next Visit Plan stepping over objects, standing balance, LE strengthening. D/C next visit with HEP in place.
--- NOTE | 2019-03-12 12:42 | PT.OTN ---
Current Diagnoses Other abnormalities of gait and mobility (03/12/19) Physical Therapy Treatment Note PT-OP-A Visit Information Start: 07/11/18 13:51 Freq: Status: Active Protocol: Document 03/12/19 12:00 DCW (Rec: 03/12/19 12:41 DCW [id number]) Out-Patient Physical Therapy Visit Information Visit Information Visit Type Discharge Summary Visit Start Time 12:00 Visit Stop Time 12:50 Total Visit Minutes 50 Visit Number 47 Number of INTEGRATION AIDE Visits 0 Evaluation Information Evaluation Date 07/11/18 PT-OP-B Current Condition Start: 07/11/18 13:51 Freq: Status: Active Protocol: Document 07/11/18 11:15 DCW (Rec: 07/11/18 14:11 DCW [id number]) Current Condition History of Current Condition Onset Date Multi-year history Current Complaints Instability, core weakness, LE weakness, L drop foot, history of falls History of Current Condition Pt is an 82 year old male presenting with a multi-year history of imbalance, falls, and weakness. Pt has been seen at this facility multiple times previously, and admits that my biggest problem is that I have no self-discipline , and I never do what I'm supposed to do unless I'm coming in here. Admits that he has never developed any core strength, even though he knows that it would be a big help. 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 Pt notes that he had previously had drop foot in 2009 following chemo and radiation for prostate cancer, but it eventually went away on its own, and was never as bad as it is now. Pt also notes that he has neuropathy in both feet, but he believes that it has actually been improving, or at least it isn't bothering me as much. Prior Treatments and Tests Prior physical therapy sessions at this facility Treatment Goals Patient/Caregiver Goals Pt wants to improve his stability and core strength, and return to working out at [facility]. PT-OP-C Subjective Start: 07/11/18 13:51 Freq: Status: Active Protocol: Document 03/12/19 12:00 DCW (Rec: 03/12/19 12:41 DCW [id number]) OP-PT Subjective Patient Comments Patient Comments Pt reports he is going down to [place] tomorrow for his son' s wedding, which he is very excited about. Pt is not thrilled that he is being discharged due to progress plateau, but understands if that's what needs to happen, that's what we'll do. PT-OP-D Balance Start: 07/11/18 13:51 Freq: Status: Active Protocol: Document 11/26/18 16:00 DCW (Rec: 11/26/18 16:45 DCW [id number]) Balance Tests Garza Balance Test Garza Balance Test Score 50/56 Garza Impairment Rating 1 to 19% Impaired (Score 45-55 ) mCTSIB mCTSIB Position 1 Slight Sway mCTSIB Position 2 Mild Sway mCTSIB Position 3 Mild Sway mCTSIB Position 4 Moderate Sway Garza Balance Assessment Evaluation Sitting to Standing Ability Independent w/out Hands Unsupported Stance Safely- 2 minutes Sitting Unsupported, Feet on Floor Safely- 2 minutes Standing to Sitting Ability Safely, Minimal Hand Use Transfer Ability Safely, Minimal Hand Use Unsupported Stance- Eyes Closed Safely, 10 seconds Unsupported Stance- Eyes Open Independent, 1 minute Reaching Forward Standing Safely, 5 inches Pick- Up Object From Floor Independent/Safe Look Behind Shoulder - Standing Shifts Weight Well Turning 360 Degrees Turns , < 4 secs Unsupported Stance, Alternating Feet on (I)- 8 Steps in 20 secs Stair Unsupported Tandem Stance Holds Tandem- 30 seconds Unilateral Leg Stance Lifts Leg/Unable to Hold Total Score Garza Total Score (out of 56 points) 50 Garza Impairment Rating 1 to 19% Impaired (Score 45-55 ) PT-OP-E Functional Tests Start: 07/11/18 13:51 Freq: Status: Active Protocol: Document 02/26/19 10:30 DCW (Rec: 02/26/19 11:15 DCW [id number]) Functional Tests 2 Minute Walk Test Distance 358 Device Used none Dynamic Gait Index (DGI) Score 19/24 DGI Impairment Rating 20 to <40% Impaired (Score 15- 19) Functional Gait Assessment Score 20/30 Functional Gait Assessment Impairment 20 to <40% Impaired (Score 19- Rating 24) PT-OP-M Strength Start: 07/11/18 13:51 Freq: Status: Active Protocol: Document 02/26/19 10:30 DCW (Rec: 02/26/19 11:15 DCW [id number]) Hip Strength Hip Manual Muscle Testing Right Flexion (L2) 5 Normal Abduction 5 Normal Adduction 4+ Good+ Left Flexion (L2) 5 Normal Abduction 5 Normal Adduction 4+ Good+ Knee Strength Knee Manual Muscle Testing Right Flexion (S2) 5 Normal Extension (L3) 5 Normal Left Flexion (S2) 4+ Good+ Extension (L3) 4+ Good+ Ankle/Foot Strength Ankle and Foot Manual Muscle Testing Right Dorsiflexion (L4) 4+ Good+ Plantarflexion (S1) 4+ Good+ Left Dorsiflexion (L4) 3 Fair Plantarflexion (S1) 4 Good PT-OP-Q Treatments Start: 07/11/18 13:51 Freq: Status: Active Protocol: Document 03/12/19 12:00 DCW (Rec: 03/12/19 12:41 DCW [id number]) Cardio Equipment Recumbent Stepper (Sci-Fit) Duration (Minutes) 8 Resistance 8 Seat Position 11 Gym Equipment Shuttle Recovery Unilateral Squats Resistance 75# Shuttle Recovery Platform Stable Reps/Time To fatigue Bilateral Squats Resistance 125# Shuttle Recovery Platform Stable Reps/Time 2x10 reps Shuttle Balance Red Details WBOS, Staggered Stance Reps/Duration 18 min Comments EO/EC, Ball Toss, Perturbation Therapeutic Exercises Standing Exercises Step-Ups Standing Exercise Name Step-ups Side bilateral Equipment Used 6 step hip ABD Side bilateral Resistance 4# Reps/Minutes x 15 reps Comments verbal/tactile cues for form PT-OP-R Modalities Start: 07/11/18 13:51 Freq: Status: Active Protocol: Document 03/12/19 12:00 DCW (Rec: 03/12/19 12:42 DCW [id number]) Electric Stimulation Electric Stimulation Grenadian Stimulation Body Location L Tib Anterior Duration (Minutes) 10 Intensity 61 Frequency 5 on/5 off Ramp 0.5 Patient Position Sitting Comments Performed with L ankle DF with LLE. PT-OP-T Assessment and Plan Start: 07/11/18 13:51 Freq: Status: Active Protocol: Document 03/12/19 12:00 DCW (Rec: 03/12/19 12:41 DCW [id number]) Physical Therapy Assessment Goals balance Impairment FGA Special Needs Nanny Goal (LTG) Pt to score 23/30 to show improved balance and dec fall risk - No change LTG Duration 03/12/19 Four Impairment Dynamic Balance [facility] Goal (LTG) Pt to score 20/24 on DGI -02/26/19: LTG Duration 03/12/19 Three Impairment Drop foot Special Needs Nanny Goal (LTG) Pt to complete 2 MWT with no instances of drop foot LTG Duration Met Two Impairment Activity participation Special Needs Nanny Goal (LTG) Pt to return to working out safely at [facility] with no balance concerns -no change LTG Duration 03/12/19 One Impairment Pt has been non-compliant with previous home exercise programs Short Term Goal (STG) Pt to be independent and compliant with appropriate HEP -performing >50% of HEP daily STG Duration 03/12/19 Assessment Summary Assessment Pt progress has plateaued, and he once again is fairly inconsistent with his HEP. Pt will be discharged from skilled therapy at this time, and will require a new referral in order to return at a later time. Physical Therapy Plan Frequency and Duration Frequency of Treatment 1x/Week Duration of Treatment 4 weeks Plan of Care Start Date 02/26/19 Plan of Care End Date 03/26/19 Therapeutic Interventions Therapeutic Interventions Aquatic Therapy Balance Training Gait Training Home Exercise Program Manual Therapy Neuromuscular Re-education Patient/Caregiver Education Self-Care/Home Management Soft Tissue Mobilization Taping Therapeutic Activities Therapeutic Exercises Modalities Cold Pack/Ice Massage Electric Stimulation Hot Packs Ultrasound Discharge Physical Therapy Discharge Reasons Plateau in Progress Next Visit Focus/Plan Next Note Type Discharge Summary
== END 2019-03-12 13:30 ==
LOC: PHYS 12:00
PROVIDERS: Family Provider Family Medicine; PCP Family Medicine; Visit Provider Psychiatry & Neurology Neurology
DX: R26.89 Other abnormalities of gait and mobility (principal)
CPT/HCPCS: 97014; 97032; 97110; 97112; 97140; 97161; 97530; 97535; G0283

== ENCOUNTER → 2019-03-20 14:06 | Outpatient (CLI) | payer MEDICARE, OTHER, SELFPAY ==
[2018-12-20 12:38] VITALS: BMI 29.0
[2019-03-20 16:27] LABS: Prostate Specific Antigen < 0.064 ng/mL (0.10-4.00)
== END ==
PROVIDERS: PCP Student in an Organized Health Care Education/Training Program; Visit Provider Urology
DX: C61 Malignant neoplasm of prostate (principal)
CPT/HCPCS: 36415; 84153

== ENCOUNTER → 2019-04-09 09:30 | Outpatient (CLI) | payer MEDICARE, OTHER, SELFPAY ==
[2018-12-20 12:38] VITALS: BMI 29.0
[2019-04-09 10:07] LABS: BUN Creatinine Ratio 18.9 (6-22); Blood Urea Nitrogen 17 mg/dL (9-20); Estimated Glomerular Filt Rate > 60.0 mL/min (>60)
--- NOTE | 2019-04-09 10:38 | DI.CT.S_ITS ---
PROCEDURE: CT ABDOMEN PELVIS WO/W CON INDICATIONS: microhematuria TECHNIQUE: Optional 5 mm thick noncontrast images acquired from the diaphragm to the symphysis pubis. After the administration of intravenous contrast, 5 mm thick images acquired from the diaphragm to the symphysis pubis after a 10-minute delay. 2 mm thick coronal and sagittal reformats were then performed of the kidneys and ureters. For radiation dose reduction, the following was used: automated exposure control, adjustment of mA and/or kV according to patient size. COMPARISON: None. FINDINGS: Image quality: Excellent. Lung bases: Lung bases are clear. Heart size is normal. Urinary system: Both kidneys are normal in size, without hydronephrosis or nephrolithiasis on pre-contrast images. No perinephric fat stranding. There is normal bilateral renal enhancement. Renal calyces appear normal in morphology when filled with contrast. Opacified portions of both ureters demonstrate normal caliber. Bladder wall thickness is normal. No calcified bladder stones. Note is made of previously present prostate radiation therapy seed implants. No operative complications found. Other solid organs: Liver is normal in size and enhancement. Gallbladder appears normal. Biliary system is non dilated. Pancreas enhances normally. Spleen is normal in size and enhancement but does contain several scattered punctate calcific granulomas.. No adrenal nodules. Peritoneum and bowel: Bowel loops demonstrate normal wall thickness and caliber. No free fluid or air. Nodes and vessels: No retroperitoneal or mesenteric adenopathy by size criteria. Aorta and inferior vena cava are normal in size. Atherosclerotic calcification within the aorta and especially at the origin of the main aortic tributaries is relatively prominent in this patient but no aneurysm or dissection is suspected. An area of relatively dense atherosclerotic eccentric calcification is visualized at the superior mesenteric artery approximately 4 cm beyond its origin, likely significantly stenosing the vessel in this area. Abdominal wall: No ventral hernias. Pelvis: No pathologic free pelvic fluid. No inguinal hernias or adenopathy. Bones: No suspicious bony lesions. No vertebral body compression fractures. IMPRESSION: 1. Source of microhematuria is not seen. No urinary tract stone or urothelial or renal cortical mass lesion is found. Note is made of several thin renal arterial calcifications. 2. Prostate radiation therapy seed implants, no metastatic disease seen. 3. Relatively prominent atherosclerotic calcifications in this patient, including at the renal arteries and within the proximal superior mesenteric artery approximately 4 cm beyond its origin which appears eccentric and likely hemodynamically significant. Please correlate for mesenteric ischemia symptoms. 4. Old calcified punctate splenic granulomas. No active granulomatous disease is suspected. Dictated by: Watson Dangelo M.D. on 04/09/2019 at 14:33 Approved by: Watson Dangelo M.D. on 04/09/2019 at 14:37
== END ==
PROVIDERS: Family Provider Student in an Organized Health Care Education/Training Program; PCP Student in an Organized Health Care Education/Training Program; Visit Provider Urology
DX: R31.29 Other microscopic hematuria (principal)
CPT/HCPCS: 36415; 74178; 82565; 84520; Q9967

== ENCOUNTER → 2019-05-01 16:20 | Outpatient (CLI) | payer MEDICARE, OTHER, SELFPAY ==
[2018-12-20 12:38] VITALS: BMI 29.0
[2019-05-01 17:49] LABS: BUN Creatinine Ratio 34.3 (6-22); Blood Urea Nitrogen 24 mg/dL (9-20); Estimated Glomerular Filt Rate > 60.0 mL/min (>60)
[2019-05-01 18:21] LABS: Prostate Specific Antigen < 0.064 ng/mL (0.10-4.00)
== END ==
PROVIDERS: Family Provider Student in an Organized Health Care Education/Training Program; PCP Student in an Organized Health Care Education/Training Program; Visit Provider Urology
DX: R31.29 Other microscopic hematuria (principal); C61 Malignant neoplasm of prostate
CPT/HCPCS: 36415; 82565; 84153; 84520

== ENCOUNTER → 2019-05-12 09:20 | Outpatient (CLI) | payer MEDICARE, OTHER, SELFPAY ==
[2018-12-20 12:38] VITALS: BMI 29.0
[2019-05-17 17:28] LABS: Testosterone Free 11.2 pg/mL (30.0-135.0); Testosterone Total 151 ng/dL (250-1100)
== END ==
PROVIDERS: Family Provider Student in an Organized Health Care Education/Training Program; PCP Student in an Organized Health Care Education/Training Program; Visit Provider Urology
DX: R68.82 Decreased libido (principal)
CPT/HCPCS: 36415; 84402; 84403

== ENCOUNTER 2019-08-26 15:30 | Outpatient (RCR) | payer MEDICARE, OTHER, SELFPAY ==
[2018-12-20 12:38] VITALS: BMI 29.0
--- NOTE | 2019-06-18 15:00 | ST.OPIE ---
Visit Care Team Role Provider Type Osbaldo Cuevas MD Attending Provider Physician Primary Care Provider Specialty: Internal Medicine Address: [address] [place] [address], [address], [place], [address] Email: [email or web address] Speech-Language Pathology Initial Evaluation STRAIGHT EDGER Clinical Swallow Evaluation Start: 06/18/19 14:14 Freq: Status: Active Protocol: Document 06/18/19 14:15 LOULOU (Rec: 06/18/19 14:58 [email or web address]) Clinical Swallow Evaluation Session Time Visit Start Time 11:30 Visit Stop Time 12:30 Total Visit Minutes 60 Visit Information Visit Number Initial Evaluation Plan of Care Dates 06/18/19 - 09/11/18 Insurance Information Medicare Referral Referring Physician Dr. Cuevas Reason for Referral Dysphagia Setting Assessment Location Outpatient Care Visit Type Note Type Initial Evaluation Next Note Type Next Note Type Treatment Note Patient Information Identification Type Name,ID Card History This 83-yr-old male returns for dysphagia tx after having participated MBSS on March 08, 2019, followed by 2 dysphagia treatment sessions in February and March 2019. MBS revealed mild pharyngeal dysphagia secondary to reduced muscular strength. At the pt's second tx appt, he felt difficulties were more related to allergies and not swallow dysfunction, and he was discharged, per STRAIGHT EDGER report. Today, the pt did not recall why dysphagia therapy was discontinued. I don't know what happened. The report fell between the cracks and the whole thing seems to have disappeared, except the problem. He c/o of ongoing sensation of solids building up in his throat. He notices a change in vocal resonance and an inability to clear or swallow residue. Frequently, this results in his expelling residue via an explosion, seemingly a gag reflex and/or sneezing. He denies vomiting from stomach or esophagus. Pt reports this occurs infrequently but is painful, upsetting, and embarrassing when it does occur, especially if others are present. The last episode was a couple of weeks ago. He admits to eating fast and taking large bites. He has a medical history of neuropathy and wondered if there could be a neurologic component. He is followed by Dr. Karin Hawkins, Neurologist. Subjective Observations The pt arrived 3 hours early. STRAIGHT EDGER was available to accommodate him. He provided updated case history information, supplemental to medical records. When STRAIGHT EDGER attempted to explain sequence of events of his previous treatment, the pt expressed a different recollection, and the conversation was discontinued and new evaluation initiated. The pt was cooperative and curious throughout the session, frequently asking questions and engaged in conversation. Evaluation Liquids Trialed Thin Solids Trialed Puree,Dysphagia Mechanical, Mechanical Soft Administration Type Cup Single Sip,Controlled Cup Sip,Cup Consecutive Sips,Self- Feeding Oral Impairment WNL Oral Strategies Upright at 90 degrees Oral Phase Comments Oral Peripheral Exam: Features were symmetrical and WNL of strength, coordination and ROM. Intermittent lingual trembling was observed when tongue was at rest. Unclear if this was tremor or not, as it was not consistent. Mildly reduced hyolaryngeal elevation/ excursion was perceived via palpation, which is consistent with MBS findings. Pt has natural teeth in adequate condition for age. He reported a hyperactive gag reflex on right side, though this was not triggered during OPE or oral trials. Oral Phase WNL with good oral containment and clearance, normal mastication, bolus formation and a/p propulsion. Pharyngeal Impairment Mildly Impaired Pharyngeal Strategies Sitting Upright (90 deg), Double Swallow,Effortful Swallow,Small Bites and Sips Pharyngeal Phase Comments No overt s/sx of aspiration were observed. The pt did exhibit change in vocal resonance following swallow of dysphagia mechanical texture (cracker in pudding) characterized by cul de sac resonance and mildly wet, gurgly voice. The pt was instructed to cough and swallow, which cleared the voice. The pt did not perceive changes in vocal quality but was receptive to feedback. Intermittent wet voice was observed as the pt continued to talk after this episode. Regular texture was not trialed per pt's concerns that it may result in an uncomfortable episode. Findings Dysphagia Type Mild pharyngeal dysphagia Rehabilitation Potential Good Impressions Dysphagia characteristics are consistent with MBS findings of February 2019, including occasional changes in vocal quality and resonance indicative of pharyngeal residue. Education was provided to the pt via review of MBS video RE physical structures, normal and abnormal swallows, evaluation findings, recommendations for compensatory strategies, and recommended POC. The pt was in agreement with recommendations, including small bites/sips taken one at a time, periodic self- assessment of voice with use of cough and swallow if resonance sounds abnormal. If cough-swallow does not clear the voice, the pt was instructed to take a break from oral intake until it is cleared. Because the pt lives alone and reported forgetting to eat slowly, it was recommended he place a visual reminder for himself next to any place in his home where he tends to eat. Diet Recommendations Liquids Order Thin Diet Order Regular Medication Recommendations As Tolerated Comments Avoid dry, sticky foods Additional Dietary Needs Reminders to Use Strategies Aspiration Precautions Recommended Precautions Upright at 90 Degrees,Frequent Rest Periods,Small Bites/Sips, Effortful Swallow,Double Swallow Treatment Plan Placement Recommendations after Home Discharge Appropriate for Therapy Yes Therapy Recommendations Ongoing assessment and education. Training of compensatory swallow strategies to reduce symptoms and increase safety. Exercises to increase strength, coordination and ROM of swallow musculature to improve efficiency and safety of swallow. Dysphagia Goals 1. The pt will perform safe swallow strategies with min visual prompts with 80% accuracy to reduce symptoms and improve safety. 2. The pt will perform exercises to increase strength, coordination and ROM of swallow musculature to improve efficiency and safety of swallow. 3. The pt will tolerate least restrictive diet to meet his nutrition and hydration needs. 4. The pt will report and exhibit swallow function and comfort/confidence with swallow at WNL, as measured by pt report and clinician judgment. STRAIGHT EDGER Follow Up 1x/wk for 4 wks, taper thereafter. STRAIGHT EDGER to consult with pt's Neurologist.
--- NOTE | 2019-06-25 16:04 | ST.OPTN ---
Visit Care Team Role Provider Type Osbaldo Cuevas MD Attending Provider Physician Primary Care Provider Address: [address] [place] [address], [address], [place], [address] INSPECTOR ASSEMBLIES AND INSTALLATIONS Treatment Note INSPECTOR ASSEMBLIES AND INSTALLATIONS Treatment Note Start: 06/18/19 14:14 Freq: Status: Active Protocol: Document 06/25/19 15:45 LOULOU (Rec: 06/25/19 16:04 LOULOU [id number]) Speech Pathology Treatment Note Session Time Visit Start Time 14:30 Visit Stop Time 15:20 Total Visit Minutes 50 Visit Information Visit Number 09/05 Setting Treatment Setting Outpatient Care Visit Type Note Type Treatment Note Next Note Type Next Note Type Treatment Note Subjective Observations/Patient Presentation Pt arrived on time. Reported he is improving in taking smaller bites and not shoveling food into his mouth when he eats. He experienced no episodes of foods sticking or building up in his throat since last session. The pt expressed concerns about his voice having lost it 's timber and being softer: It doesn't sound like me anymore. Chief Complaint(s) Swallowing Rehab Expectation/Goals: Patient Goals Improve swallow, eliminate sticking and building up of food in throat Patient Knowledge/Awareness of INSPECTOR ASSEMBLIES AND INSTALLATIONS Role Good in Treatment Objective Treatment Activities Assessed pt's swallow and trained in safe swallow strategies, including monitoring vocal quality, with trials of diced fruit. The pt complied with instructions to say take a bite, chew it well , swallow completely, say something in order to assess vocal quality; if wet/gurgly, clear throat and swallow and check voice again. When voice is clear, continue with next bite. The pt perceived vocal quality with 86% accuracy (7/8 opportunities). Skilled feedback and HEP instruction provided. Initiated training of swallow exercises including Shaker (pt completed 60-sec head hold and 30 reps), suck-swallow, Any, and base of tongue. The pt returned demonstration of all exercises, demonstrating understanding. Consulted with pt RE voice concerns. In conversation, the pt spoke with an average of 67 dB and he sustained ah for 6.5 seconds. Education provided RE MPT conversational loudness level norms. Recommended performing sustained phonation and reading aloud at home at louder than normal levels to strengthen respiratory muscles and practice using his voice, particularly because he lives alone and therefore does not use his voice as much as he used to. He was agreeable to these recommendation. Will f/u and monitor over course of tx . Assessment Patient Response to Treatment Good Rehab Potential Good Impairments Identified Dysphagia Progress Towards Goals Good Progress Assessment of Overall Progress Improving Assessment of Improvement Using safe swallow strategies this week, the pt has had no episodes of sticking sensations. During the session , he improved his ability to monitor and self-perceive changes in vocal quality post- swallow and performed swallow exercises per instructions, demonstrating understanding. He continues to appear motivated to improve and has been compliant in this first week with INSPECTOR ASSEMBLIES AND INSTALLATIONS's HEP instructions. Reviewed with Patient Goals,Progress Being Made,Home Exercise Program Patient/Caregiver Understanding Good Plan Therapeutic Contents Client Education,Home Exercise Program,Swallowing/Feeding Additional Areas of Treatment Will monitor voice Provided Patient/Caregiver Instruction Home Exercise Program,Plan of Care,Questions/Concerns Therapy Recommendations Continue with Current Program
--- NOTE | 2019-06-25 16:07 | ST.OPTN ---
Visit Care Team Role Provider Type Osbaldo Cuevas MD Attending Provider Physician Primary Care Provider Address: [address] [place] [address], [address], [place], [address] DIPLOMA DENTAL ASSISTANT Treatment Note DIPLOMA DENTAL ASSISTANT Treatment Note Start: 06/18/19 14:14 Freq: Status: Active Protocol: Document 06/25/19 15:45 LOULOU (Rec: 06/25/19 16:04 LOULOU [id number]) Speech Pathology Treatment Note Session Time Visit Start Time 14:30 Visit Stop Time 15:20 Total Visit Minutes 50 Visit Information Visit Number 09/05 Plan of Care Dates 06/18/19 - 09/11/18 Insurance Information Medicare Setting Treatment Setting Outpatient Care Visit Type Note Type Treatment Note Next Note Type Next Note Type Treatment Note General Information General Information This 83-yr-old male returns for dysphagia tx after having participated [facility] on March 08, 2019, followed by 2 dysphagia treatment sessions in February and March 2019. MBS revealed mild pharyngeal dysphagia secondary to reduced muscular strength. At the pt's second tx appt, he felt difficulties were more related to allergies and not swallow dysfunction, and he was discharged, per DIPLOMA DENTAL ASSISTANT report. Today, the pt did not recall why dysphagia therapy was discontinued. I don't know what happened. The report fell between the cracks and the whole thing seems to have disappeared, except the problem. He c/o of ongoing sensation of solids building up in his throat. He notices a change in vocal resonance and an inability to clear or swallow residue. Frequently, this results in his expelling residue via an explosion, seemingly a gag reflex and/or sneezing. He denies vomiting from stomach or esophagus. Pt reports this occurs infrequently but is painful, upsetting, and embarrassing when it does occur, especially if others are present. The last episode was a couple of weeks ago. He admits to eating fast and taking large bites. He has a medical history of neuropathy and wondered if there could be a neurologic component. His followed by Dr. Karin Hawkins , Neurologist. Subjective Observations/Patient Presentation Pt arrived on time. Reported he is improving in taking smaller bites and not shoveling food into his mouth when he eats. He experienced no episodes of foods sticking or building up in his throat since last session. The pt expressed concerns about his voice having lost it 's timber and being softer: It doesn't sound like me anymore. Chief Complaint(s) Swallowing Rehab Expectation/Goals: Patient Goals Improve swallow, eliminate sticking and building up of food in throat Patient Knowledge/Awareness of DIPLOMA DENTAL ASSISTANT Role Good in Treatment Objective Short Term Goals 1. The pt will perform safe swallow strategies with min visual prompts with 80% accuracy to reduce symptoms and improve safety. 2. The pt will perform exercises to increase strength , coordination and ROM of swallow musculature to improve efficiency and safety of swallow. [employer] Goals 1. The pt will tolerate least restrictive diet to meet his nutrition and hydration needs. 2. The pt will report and exhibit swallow function and comfort/confidence with swallow at WNL, as measured by pt report and clinician judgment. Treatment Activities Assessed pt's swallow and trained in safe swallow strategies, including monitoring vocal quality, with trials of diced fruit. The pt complied with instructions to say take a bite, chew it well , swallow completely, say something in order to assess vocal quality; if wet/gurgly, clear throat and swallow and check voice again. When voice is clear, continue with next bite. The pt perceived vocal quality with 86% accuracy (7/8 opportunities). Skilled feedback and HEP instruction provided. Initiated training of swallow exercises including Shaker (pt completed 60-sec head hold and 30 reps), suck-swallow, Any, and base of tongue. The pt returned demonstration of all exercises, demonstrating understanding. Consulted with pt RE voice concerns. In conversation, the pt spoke with an average of 67 dB and he sustained ah for 6.5 seconds. Education provided RE MPT conversational loudness level norms. Recommended performing sustained phonation and reading aloud at home at louder than normal levels to strengthen respiratory muscles and practice using his voice, particularly because he lives alone and therefore does not use his voice as much as he used to. He was agreeable to these recommendation. Will f/u and monitor over course of tx . Assessment Patient Response to Treatment Good Rehab Potential Good Impairments Identified Dysphagia Progress Towards Goals Good Progress Assessment of Overall Progress Improving Assessment of Improvement Using safe swallow strategies this week, the pt has had no episodes of sticking sensations. During the session , he improved his ability to monitor and self-perceive changes in vocal quality post- swallow and performed swallow exercises per instructions, demonstrating understanding. He continues to appear motivated to improve and has been compliant in this first week with DIPLOMA DENTAL ASSISTANT's HEP instructions. Reviewed with Patient Goals,Progress Being Made,Home Exercise Program Patient/Caregiver Understanding Good Plan Therapeutic Contents Client Education,Home Exercise Program,Swallowing/Feeding Additional Areas of Treatment Will monitor voice Provided Patient/Caregiver Instruction Home Exercise Program,Plan of Care,Questions/Concerns Therapy Recommendations Continue with Current Program
--- NOTE | 2019-07-02 16:27 | ST.OPTN ---
Visit Care Team Role Provider Type Osbaldo Cuevas MD Attending Provider Physician Primary Care Provider Address: [address] [place] [address], [address], [place], [address] HOME FURNISHINGS SALES REPRESENTATIVE Treatment Note HOME FURNISHINGS SALES REPRESENTATIVE Treatment Note Start: 06/18/19 14:14 Freq: Status: Active Protocol: Document 07/02/19 16:13 LOULOU (Rec: 07/02/19 16:27 LOULOU [id number]) Speech Pathology Treatment Note Session Time Visit Start Time 15:30 Visit Stop Time 16:15 Total Visit Minutes 45 Visit Information Visit Number 10/06 Plan of Care Dates 06/18/19 - 09/11/18 Insurance Information Medicare Setting Treatment Setting Outpatient Care Visit Type Note Type Treatment Note Next Note Type Next Note Type Treatment Note General Information General Information This 83-yr-old male returns for dysphagia tx after having participated [facility] on March 08, 2019, followed by 2 dysphagia treatment sessions in February and March 2019. MBS revealed mild pharyngeal dysphagia secondary to reduced muscular strength. At the pt's second tx appt, he felt difficulties were more related to allergies and not swallow dysfunction, and he was discharged, per HOME FURNISHINGS SALES REPRESENTATIVE report. Today, the pt did not recall why dysphagia therapy was discontinued. I don't know what happened. The report fell between the cracks and the whole thing seems to have disappeared, except the problem. He c/o of ongoing sensation of solids building up in his throat. He notices a change in vocal resonance and an inability to clear or swallow residue. Frequently, this results in his expelling residue via an explosion, seemingly a gag reflex and/or sneezing. He denies vomiting from stomach or esophagus. Pt reports this occurs infrequently but is painful, upsetting, and embarrassing when it does occur, especially if others are present. The last episode was a couple of weeks ago. He admits to eating fast and taking large bites. He has a medical history of neuropathy and wondered if there could be a neurologic component. His followed by Dr. Karin Hawkins , Neurologist. Subjective Observations/Patient Presentation Pt arrived on time. Reported he is improving in taking smaller bites and not shoveling food into his mouth when he eats. He experienced no episodes of foods sticking or building up in his throat since last session, but did report an episode of wet vocal quality while in a lengthy conversation on the phone. He attempted to cough and swallow but was unable to clear it. The pt again expressed changes in vocal quality and an inability to sing since his left him in the 1980s, which he acknowledged was more psychological than physiological. He did sing 1 line of a song but did get choked up and stopped singing. 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 The pt will perform safe swallow strategies with min visual prompts with 80% accuracy to reduce symptoms and improve safety. 2. The pt will perform exercises to increase strength , coordination and ROM of swallow musculature to improve efficiency and safety of swallow. Fdc Goals 1. The pt will tolerate least restrictive diet to meet his nutrition and hydration needs. 2. The pt will report and exhibit swallow function and comfort/confidence with swallow at WNL, as measured by pt report and clinician judgment. Treatment Activities Consulted pt on concerns related to voice and provided education and feedback RE presbyphonia and vocal exercises that would improve pitch range, projection and vocal quality, as well as target elevation and depression of the larynx for airway protection during swallow. Education also provided RE saliva management and instructed pt to intentionally increase swallowing of saliva when talking for lengthy periods of time. Initiated training of 2 additional exercises into HEP to address both of these issues: back of tongue to improve saliva management, and pitch glides with strong voice to strengthen laryngeal elevation/depression as well as VFs for airway protection and improved vocal quality/ projection. The pt returned demonstration of exercises with appropriate form. Range of pitch glides was up to 209 Hz (~1 octave) with adequate vocal quality. Pt completed Shaker exercise with head hold x60 sec and 30 consecutive reps. Assessment Patient Response to Treatment Good Rehab Potential Good Impairments Identified Dysphagia Additional Impairments Identified Pt expresses mild vocal changes; question memory skills. Progress Towards Goals Good Progress Assessment of Overall Progress Improving Assessment of Improvement The pt reports improvement of symptoms during oral intake, as well as good adherence to safe swallow strategies and at least once daily completion of HEP tasks. He was receptive to and able to perform new exercises that will address his concerns of both saliva management and vocal quality/ projection. He continues to complete Shaker exercise easily. The pt has been observed in the last 2 sessions to repeat information that he has provided in previous sessions (e.g., stories and case history), which raises some concern of memory, which is not uncommon for persons of the pt's age. Reviewed with Patient Goals,Progress Being Made,Home Exercise Program Patient/Caregiver Understanding Good Plan Therapeutic Contents Client Education,Home Exercise Program,Swallowing/Feeding Additional Areas of Treatment Will monitor voice Provided Patient/Caregiver Instruction Home Exercise Program,Plan of Care,Questions/Concerns Therapy Recommendations Continue with Current Program
--- NOTE | 2019-07-09 13:35 | ST.OPTN ---
Visit Care Team Role Provider Type Osbaldo Cuevas MD Attending Provider Physician Primary Care Provider Address: [address] [place] [address], [address], [place], [address] PAYROLL ACCOUNTANT Treatment Note PAYROLL ACCOUNTANT Treatment Note Start: 06/18/19 14:14 Freq: Status: Active Protocol: Document 07/09/19 13:21 LOULOU (Rec: 07/09/19 13:31 LOULOU [id number]) Speech Pathology Treatment Note Session Time Visit Start Time 12:30 Visit Stop Time 13:15 Total Visit Minutes 45 Visit Information Visit Number 11/03 Plan of Care Dates 06/18/19 - 09/11/18 Insurance Information Medicare Setting Treatment Setting Outpatient Care Visit Type Note Type Treatment Note Next Note Type Next Note Type Treatment Note General Information General Information This 83-yr-old male returns for dysphagia tx after having participated [facility] on March 08, 2019, followed by 2 dysphagia treatment sessions in February and March 2019. MBS revealed mild pharyngeal dysphagia secondary to reduced muscular strength. At the pt's second tx appt, he felt difficulties were more related to allergies and not swallow dysfunction, and he was discharged, per PAYROLL ACCOUNTANT report. Today, the pt did not recall why dysphagia therapy was discontinued. I don't know what happened. The report fell between the cracks and the whole thing seems to have disappeared, except the problem. He c/o of ongoing sensation of solids building up in his throat. He notices a change in vocal resonance and an inability to clear or swallow residue. Frequently, this results in his expelling residue via an explosion, seemingly a gag reflex and/or sneezing. He denies vomiting from stomach or esophagus. Pt reports this occurs infrequently but is painful, upsetting, and embarrassing when it does occur, especially if others are present. The last episode was a couple of weeks ago. He admits to eating fast and taking large bites. He has a medical history of neuropathy and wondered if there could be a neurologic component. His followed by Dr. Karin Hawkins , Neurologist. Subjective Observations/Patient Presentation Pt arrived on time. No episodes of food building up since last session. Pt continues to notice wet, gurgly voice from time to time while talking, increased when drinking alcohol, which he attributes to an associated relaxation of muscles. Also reports significant runny nose when cooking and eating, even with bland food. Chief Complaint(s) Swallowing Additional Areas of Concern Presbyphonia Rehab Expectation/Goals: Patient Goals Improve swallow, eliminate sticking and building up of food in throat Patient Knowledge/Awareness of PAYROLL ACCOUNTANT Role Good in Treatment Objective Short Term Goals 1. The pt will perform safe swallow strategies with min visual prompts with 80% accuracy to reduce symptoms and improve safety. 2. The pt will perform exercises to increase strength , coordination and ROM of swallow musculature to improve efficiency and safety of swallow. Senior Care Goals 1. The pt will tolerate least restrictive diet to meet his nutrition and hydration needs. 2. The pt will report and exhibit swallow function and comfort/confidence with swallow at WNL, as measured by pt report and clinician judgment. Treatment Activities Education and feedback provided to pt RE his questions and to muscular targets of swallow exercises. Suspect increased runny nose may result from change in posture with head bent forward , altering the flow of PND. Food aromas may also contribute. Advised pt to observe if runny nose increases during other activities with similar head posture (e.g., reading a book, working on [employer] puzzle). Reviewed HEP tasks with animated video tool to educate pt on normal and abnormal swallow function as related to muscles that are being targeted in prescribed exercises. Also informed of potential consequences of weakened muscles, including laryngeal penetration of PND and saliva, resulting in wet vocal quality. Pt verbalized understanding and asked many good questions, which were answered. The pt completed Shaker exercise with 60-sec hold and 30 reps with ease. Attempted to train Tresa maneuver. Pt exhibited difficulty performing. Exercise was discontinued d/t inclusion of Shaker and suck/swallow exercises that target same structures. No wet vocal quality was observed in conversation today. Discussed POC and agreed to f/ u in 3 wks. Pt instructed and agreed to increase diligence with swallow exercises for continued improvement. Assessment Patient Response to Treatment Good Rehab Potential Good Impairments Identified Dysphagia Additional Impairments Identified Pt expresses mild vocal changes; question memory skills. Progress Towards Goals Good Progress Assessment of Overall Progress Improving Assessment of Improvement The pt was very responsive to education, demonstrates understanding of swallow exercises and ability to perform. Reports inconsistent compliance with HEP but decreased episodes of food build-up in throat, aided by use of reducing rate of intake and increasing mastication. Absence of wet vocal quality in today's conversations indicates improved saliva management and benefit from skilled intervention. Reviewed with Patient Goals,Progress Being Made,Home Exercise Program Patient/Caregiver Understanding Good Plan Comment Follow up in 3 wks Therapeutic Contents Client Education,Home Exercise Program,Swallowing/Feeding Provided Patient/Caregiver Instruction Home Exercise Program,Plan of Care,Questions/Concerns Therapy Recommendations Continue with Current Program
--- NOTE | 2019-08-26 17:04 | ST.OPDS ---
Visit Care Team Role Provider Type Osbaldo Cuevas MD Attending Provider Physician Primary Care Provider Address: [address] [place] [address], [address], [place], [address] GAMING MANAGER Treatment Note GAMING MANAGER Treatment Note Start: 06/18/19 14:14 Freq: Status: Active Protocol: Document 08/26/19 16:44 LOULOU (Rec: 08/26/19 17:04 LOULOU [id number]) Speech Pathology Treatment Note Session Time Visit Start Time 15:30 Visit Stop Time 16:00 Total Visit Minutes 30 Visit Information Visit Number 12/04 Plan of Care Dates 06/18/19 - 09/11/18 Insurance Information Medicare Setting Treatment Setting Outpatient Care Visit Type Note Type Treatment Note Next Note Type Next Note Type Treatment Note General Information General Information This 83-yr-old male returns for dysphagia tx after having participated MBSS on March 08, 2019, followed by 2 dysphagia treatment sessions in February and March 2019. MBS revealed mild pharyngeal dysphagia secondary to reduced muscular strength. At the pt's second tx appt, he felt difficulties were more related to allergies and not swallow dysfunction, and he was discharged, per GAMING MANAGER report. Today, the pt did not recall why dysphagia therapy was discontinued. I don't know what happened. The report fell between the cracks and the whole thing seems to have disappeared, except the problem. He c/o of ongoing sensation of solids building up in his throat. He notices a change in vocal resonance and an inability to clear or swallow residue. Frequently, this results in his expelling residue via an explosion, seemingly a gag reflex and/or sneezing. He denies vomiting from stomach or esophagus. Pt reports this occurs infrequently but is painful, upsetting, and embarrassing when it does occur, especially if others are present. The last episode was a couple of weeks ago. He admits to eating fast and taking large bites. He has a medical history of neuropathy and wondered if there could be a neurologic component. His followed by Dr. Karin Hawkins , Neurologist. Subjective Observations/Patient Presentation Pt arrived on time. Reported only a few episodes of swallow difficulty since last seen, each a result of eating too quickly. He felt food build up and had to wait for it to clear, which it did. Chief Complaint(s) Swallowing Rehab Expectation/Goals: Patient Goals Improve swallow, eliminate sticking and building up of food in throat Patient Knowledge/Awareness of GAMING MANAGER Role Good in Treatment Objective Short Term Goals 1. The pt will perform safe swallow strategies with min visual prompts with 80% accuracy to reduce symptoms and improve safety. GOAL MET 2. The pt will perform exercises to increase strength , coordination and ROM of swallow musculature to improve efficiency and safety of swallow. GOAL MET Appraisal Analyst Goals 1. The pt will tolerate least restrictive diet to meet his nutrition and hydration needs. GOAL MET 2. The pt will report and exhibit swallow function and comfort/confidence with swallow at WNL, as measured by pt report and clinician judgment. GOAL MET Treatment Activities Assessed pt's swallow function /safety with trials of puree, dysphagia mechanical and regular textures and thin liquid. No overt s/sx of aspiration were observed, and the pt had no complaints of sticking sensation. Discussed pt's symptoms of occasional feeling that foods are filling up/sticking in his esophagus. The pt reported having been examined by GI ~2 yrs ago, who determined no esophageal dysfunction and no hiatal hernia. Recommended the pt follow up with his PCP, Dr Jayy Cuevas, to discuss these occasional symptoms, as well as the pt's complaints of frequent chest congestion to determine if consultation with GI and chest x-ray may be warranted. Pt was in agreement . Also recommended pt continue swallow exercises and compensatory strategies (small bites/sips taken slowly and chewed well) to maintain improved swallow function. Pt was in agreement. Assessment Patient Response to Treatment Excellent Rehab Potential Excellent Impairments Identified Dysphagia Progress Towards Goals Good Progress,Goals Met, Appropriate for Discharge Assessment of Overall Progress Improving,Rehabilitated Assessment of Improvement The pt has made excellent progress and met treatment goals. He is managing symptoms by eating small bites/sips slowly and chewing well. Occasional sensation of foods building up in his esophagus continue when he does not follow these complensatory strategies. Question esophageal dysmotility or hiatal hernia. Recommend the pt follow up with PCP to discuss if consultation with GI is warranted. The pt reports reduced episodes of wet vocal quality, indicating improved airway protection with both oral intake and saliva management. Recommend pt continue with swallow exercises to maintain this level of improvement. Pt was in agreement. The pt does complain of persistent frequent chest congestion causing frequent coughing, which is often productive. Again, recommend the pt follow up with PCP to discuss if chest x-ray or other assessment/treatment may be warranted. The pt has improved nicely with dysphagia treatment and is appropriate for discharge. Pt in agreement. Reviewed with Patient Goals,Progress Being Made,Home Exercise Program Patient/Caregiver Understanding Excellent Plan Frequency of Treatment No Further Therapy Therapeutic Contents Client Education,Home Exercise Program,Swallowing/Feeding Provided Patient/Caregiver Instruction Home Exercise Program,Plan of Care,Questions/Concerns Therapy Recommendations Discharge to Home Exercise Program Other Referrals Possible GI, Chest X-ray -- Discuss with PCP (see details above)
== END 2019-08-26 16:30 ==
LOC: SP 15:30
PROVIDERS: PCP Student in an Organized Health Care Education/Training Program; Visit Provider Student in an Organized Health Care Education/Training Program
DX: R13.10 Dysphagia, unspecified (principal)
CPT/HCPCS: 92526; 92610

== ENCOUNTER → 2019-09-17 15:26 | Outpatient (CLI) | payer MEDICARE, OTHER, SELFPAY ==
[2019-08-29 09:23] VITALS: BMI 29.0
--- NOTE | 2019-09-17 15:28 | DI.CT.S_ITS ---
PROCEDURE: CT CHEST WO CON INDICATIONS: Cough, bronchitis TECHNIQUE: Noncontrast 5 mm thick sections acquired from the pulmonary apices to the posterior costophrenic angles. 1 mm lung window, 5 mm thick coronal and sagittal and 7 mm axial MIP reformats were then acquired. For radiation dose reduction, the following was used: automated exposure control, adjustment of mA and/or kV according to patient size. COMPARISON: None. FINDINGS: Image quality: Excellent. Lungs and pleura: No acute air space opacities, but there is a finding suggestive of probable old granulomatous disease left upper lobe. This is comprised of several peripheral and punctate nodules, subpleural, at the left apex laterally and also 2 adjacent subsolid nodular radiodensities with indistinct margination measuring up to 9 mm at the posterior lung apex (series 3 image 42). A smaller radiodensity is present, nonspecific, at the posterior right apex (series 3 image 42 also), measuring up to 3 x 5 mm. No pleural effusions or pneumothorax. Central and peripheral airways are patent and normal in caliber. Mediastinum: Heart size is normal. No pericardial effusion. No mediastinal adenopathy by size criteria. There are several partially calcified lymph nodes within the subcarinal space and a single small calcified node appears present at the superior left hilum and anterior border of the ascending main pulmonary artery superiorly Thoracic aorta and central pulmonary arteries are normal in size. Esophagus is normal in caliber. No hiatal hernia. Bones and chest wall: No suspicious bony lesions. No vertebral body compression fractures. No axillary or supraclavicular adenopathy by size criteria. Thyroid gland is not well-seen by this noncontrast technique. Abdomen: Visualized upper abdominal solid organs and bowel loops appear normal in the absence of contrast. IMPRESSION: 1. Within the lung parenchyma no acute or subacute pneumonia is found. 2. Within the left lung apex there are several punctate peripheral nodules and also 2 adjacent indistinctly marginated partially subsolid nodules measuring up to 9 mm in maximal dimension. Statistically this is most likely a manifestation of granulomatous disease given the presence of several small and partially calcified mediastinal lymph nodes. However, it remains possible that these 2 nodules could represent a manifestation of malignancy and for this reason a followup CT in 6 months utilizing noncontrast technique is recommended. 3. Single small nodule posterior right lung apex, which will be included in follow up CT scanning. This likely is benign by appearance. It measures up to 3 x 5 mm. Dictated by: Watson Dangelo M.D. on 09/17/2019 at 17:00 Approved by: Watson Dangelo M.D. on 09/17/2019 at 17:07
== END ==
PROVIDERS: PCP Student in an Organized Health Care Education/Training Program; Visit Provider Student in an Organized Health Care Education/Training Program
DX: R05 Cough (principal); J47.9 Bronchiectasis, uncomplicated; R91.8 Other nonspecific abnormal finding of lung field
CPT/HCPCS: 71250

== ENCOUNTER → 2019-10-18 09:06 | Outpatient (CLI) | payer MEDICARE, OTHER, SELFPAY ==
[2019-08-29 09:23] VITALS: BMI 29.0
[2019-10-18 09:34] LABS: Add Manual Diff / Slide Review NO; Basophils Absolute Auto 0 /uL (0-100); Basophils Percent Auto 0.5 % (0-2); Eosinophils Absolute Auto 600 /uL (0-450); Eosinophils Percent Auto 10.4 % (2-4); Hematocrit 39.8 % (41-53); Hemoglobin 13.6 g/dL (13.5-17.5); Lymphocytes Absolute Auto 1100 /uL (1100-4500); Lymphocytes Percent Auto 20.7 % (25-40); Mean Corpuscular HGB Conc 34.2 % (30-36); Mean Corpuscular Hemoglobin 32.3 PG (26-34); Mean Corpuscular Volume 94.4 fL (80-100); Monocytes Absolute Auto 500 /uL (0-900); Monocytes Percent Auto 9.5 % (3-14); Neutrophils Absolute Auto 3200 /uL (1500-7000); Neutrophils Percent Auto 58.9 % (50-75); Platelet Count 147 X10^3/uL (150-400); Red Blood Cell Count 4.22 X10^6/uL (4.5-5.9); Red Cell Distribution Width 13.6 % (11.6-14.8); White Blood Cell Count 5.4 X10^3/uL (4.5-11.0)
[2019-10-18 10:14] LABS: BUN Creatinine Ratio 22.5 (6-22); Blood Urea Nitrogen 18 mg/dL (9-20); Calcium 9.3 mg/dL (8.4-10.2); Carbon Dioxide 27 mmol/L (22-32); Chloride 107 mmol/L (98-107); Cholesterol 168 mg/dL (140-199); Estimated Glomerular Filt Rate > 60.0 mL/min (>60); Glucose 117 mg/dL (80-110); HDL Cholesterol 71 mg/dL (40-60); HEMOLYSIS < 15 (0-50); LDL Cholesterol Calculated 80 mg/dL (<100); Potassium 4.6 mmol/L (3.4-5.1); Sodium 140 mmol/L (137-145); Triglycerides 83 mg/dL (35-150)
== END ==
PROVIDERS: PCP Student in an Organized Health Care Education/Training Program; Referring Provider Internal Medicine Cardiovascular Disease; Visit Provider Internal Medicine Cardiovascular Disease
DX: E78.5 Hyperlipidemia, unspecified (principal); I10 Essential (primary) hypertension
CPT/HCPCS: 36415; 80048; 80061; 85025

== ENCOUNTER → 2020-03-11 15:06 | Outpatient (CLI) | payer MEDICARE, OTHER, SELFPAY ==
[2019-08-29 09:23] VITALS: BMI 29.0
--- NOTE | 2020-03-11 15:07 | DI.CT.S_ITS ---
PROCEDURE: CT CHEST WO CON INDICATIONS: six-month follow-up of incidental pulmonary nodules TECHNIQUE: Noncontrast 2.0-2.5 mm thick sections acquired from the pulmonary apices to the posterior costophrenic angles. 7 mm thick axial MIP and 5 mm coronal and sagittal reformats were then acquired. A low radiation dose technique was utilized. COMPARISON: [facility], CT, CT CHEST WO CON, 09/17/2019, 15:35. FINDINGS: Image quality: Diagnostic, given the low radiation dose technique. Lungs and pleura: Resolution of 2 areas of indistinctly marginated nodular airspace disease near the posterior border of the left upper lobe, axial level of the hiatus margin of the superior segment left lower lobe. This area now appears normal. There is a minimal degree of a focal lung parenchyma and pleural scarring. More inferiorly no mass or evidence of active inflammation is present. Several calcified small mediastinal and left hilar lymph nodes are again seen. Mediastinum: Heart size is normal. No pericardial effusion. No mediastinal adenopathy by size criteria. Thoracic aorta and central pulmonary arteries are normal in size. Esophagus is normal in caliber. No hiatal hernia. Bones and chest wall: No suspicious bony lesions. No vertebral body compression fractures. No axillary or supraclavicular adenopathy by size criteria. Thyroid gland is not well seen by this noncontrast technique. . Abdomen: Visualized upper abdomen solid organs and bowel loops appear normal in the absence of contrast. Old granulomatous disease is present involving the liver and spleen to mild degree, producing several scattered punctate calcifications. IMPRESSION: Resolution of several nodular areas of active airspace disease present on CT scanning 09/17/19. No new pulmonary nodule is present. No suspicion for underlying malignancy. Old presumed granulomatous disease has cause of the several scattered small mediastinal and left hilar node calcifications. No adenopathy is found. Several punctate calcified granulomas are noted within the liver and spleen. No follow-up recommended. Dictated by: Watson Dangelo M.D. on 03/11/2020 at 16:33 Approved by: Watson Dangelo M.D. on 03/11/2020 at 16:38
== END ==
PROVIDERS: PCP Student in an Organized Health Care Education/Training Program; Referring Provider Student in an Organized Health Care Education/Training Program; Visit Provider Student in an Organized Health Care Education/Training Program
DX: R91.8 Other nonspecific abnormal finding of lung field (principal)
CPT/HCPCS: 71250

== ENCOUNTER → 2020-03-11 15:08 | Outpatient (CLI) | payer MEDICARE, OTHER, SELFPAY ==
[2019-08-29 09:23] VITALS: BMI 29.0
[2020-03-11 16:28] LABS: Prostate Specific Antigen < 0.064 ng/mL (0.10-4.00)
== END ==
PROVIDERS: PCP Student in an Organized Health Care Education/Training Program; Referring Provider Student in an Organized Health Care Education/Training Program; Visit Provider Urology
DX: Z85.46 Personal history of malignant neoplasm of prostate (principal)
CPT/HCPCS: 36415; 84153

== ENCOUNTER → 2020-07-30 15:40 | Outpatient (CLI) | payer MEDICARE, OTHER, SELFPAY ==
[2019-08-29 09:23] VITALS: BMI 29.0
[2020-07-30 16:28] LABS: COVID19 -Nasal RAPID Negative (Negative)
== END ==
PROVIDERS: PCP Student in an Organized Health Care Education/Training Program; Visit Provider Registered Nurse
DX: R05 Cough (principal); Z11.8 Encounter for screening for other infectious and parasitic diseases
CPT/HCPCS: 87635

== ENCOUNTER → 2020-07-30 16:25 | Outpatient (CLI) | payer MEDICARE, OTHER, SELFPAY ==
[2019-08-29 09:23] VITALS: BMI 29.0
--- NOTE | 2020-07-30 16:30 | DI.RAD.S_ITS ---
PROCEDURE: XR CHEST 2V INDICATIONS: reports wheezes TECHNIQUE: 2 views of the chest were acquired. COMPARISON: [facility], CR, XR CHEST 1V, 12/23/2018, 10:10. FINDINGS: Surgical changes and devices: None. Lungs and pleura: Scattered subsegmental scarring and/or atelectasis. No acute consolidation. No pleural effusions or pneumothorax. Unchanged calcified granuloma projects in the right upper lobe Mediastinum: Mediastinal contours are normal. Heart size is normal. Bones and chest wall: No suspicious bony abnormalities. Soft tissues appear unremarkable. IMPRESSION: No acute disease. Dictated by: Harvey Shukla M.D. on 07/30/2020 at 17:01 Approved by: Harvey Shukla M.D. on 07/30/2020 at 17:01
== END ==
PROVIDERS: PCP Student in an Organized Health Care Education/Training Program; Referring Provider Registered Nurse; Visit Provider Registered Nurse
DX: R06.2 Wheezing (principal); R05 Cough
CPT/HCPCS: 71046; 87635

== ENCOUNTER 2020-09-03 13:08 | Observation (INO) | payer MEDICARE, OTHER, SELFPAY ==
[2020-08-18 09:37] VITALS: BMI 29.0
[2020-09-03] VITALS (11 sets, daily range): BP systolic 148–176; BP diastolic 65–77; PULSE 58–78; RESP 14–23; TEMP 36.3–36.9; O2SAT 96–99; BMI 31.8
--- NOTE | 2020-09-03 13:21 | DI.CT.S_ITS ---
PROCEDURE: CT STROKE INDICATIONS: lost vision right eye 1000 for 5 mintues TECHNIQUE: Noncontrast 4.5 mm thick angled axial sections acquired from the foramen magnum to the vertex, with coronal reformats. For radiation dose reduction, the following was used: automated exposure control, adjustment of mA and/or kV according to patient size. COMPARISON: [facility], CT, HEAD WITHOUT CONTRAST, 02/11/2016, 14:36. FINDINGS: Image quality: Image degraded by moderate patient motion artifact near the skull base CSF spaces: Basal cisterns are patent. No extra-axial fluid collections. The ventricles are symmetric in size and shape. Brain: No intracranial bleeds or masses. There is moderate cerebral volume loss for age, with resultant ventricular and sulcal prominence. There are moderate periventricular and deep white matter chronic small vessel ischemic changes. There is intracranial internal carotid artery atherosclerosis. Skull and face: Calvarium and visualized facial bones appear intact, without suspicious lesions. Sinuses: Visualized sinuses and mastoids are clear. IMPRESSION: 1. CT head without acute intracranial abnormalities or acute calvarial fractures. 2. Age-related senescent changes and sequela of moderate chronic small vessel ischemic disease. Findings were discussed with YADIRA Magana at 1338 hrs PST. This study fulfills neurological imaging criteria for inclusion or exclusion of acute stroke therapies based on available published neurological guidelines. Dictated by: Srikanth Chakraborty M.D. on 09/03/2020 at 13:35 Approved by: Srikanth Chakraborty M.D. on 09/03/2020 at 13:41
[2020-09-03 14:00] LABS: Add Manual Diff / Slide Review NO; Basophils Absolute Auto 0 /uL (0-100); Basophils Percent Auto 0.4 % (0-2); Eosinophils Absolute Auto 100 /uL (0-450); Eosinophils Percent Auto 2.1 % (2-4); Hematocrit 38.7 % (41-53); Hemoglobin 12.9 g/dL (13.5-17.5); Lymphocytes Absolute Auto 900 /uL (1100-4500); Lymphocytes Percent Auto 14.7 % (25-40); Mean Corpuscular HGB Conc 33.4 % (30-36); Mean Corpuscular Hemoglobin 32.1 PG (26-34); Mean Corpuscular Volume 96.1 fL (80-100); Monocytes Absolute Auto 600 /uL (0-900); Monocytes Percent Auto 9.2 % (3-14); Neutrophils Absolute Auto 4600 /uL (1500-7000); Neutrophils Percent Auto 73.6 % (50-75); Platelet Count 133 X10^3/uL (150-400); Red Blood Cell Count 4.02 X10^6/uL (4.5-5.9); Red Cell Distribution Width 13.4 % (11.6-14.8); White Blood Cell Count 6.2 X10^3/uL (4.5-11.0)
[2020-09-03 14:11] LABS: Blood Urea Nitrogen 27 mg/dL (9-20); Calcium 8.4 mg/dL (8.4-10.2); Carbon Dioxide 28 mmol/L (22-32); Chloride 107 mmol/L (98-107); Estimated Glomerular Filt Rate > 60.0 mL/min (>60); Glucose 120 mg/dL (80-110); HEMOLYSIS < 15 (0-50); PTT Partial Thromboplastin Tim 33 SECONDS (26.4-36.2); Potassium 4.2 mmol/L (3.4-5.1); Sodium 139 mmol/L (137-145)
[2020-09-03] MEDS: SODIUM CHLORIDE 0.9% 1,000 ML 150 ML IV (15:01)
--- NOTE | 2020-09-03 15:56 | ED.NEUROSD ---
HPI - Neuro Symptoms/Deficit <Jaelyn Koenig, LAVATORY ATTENDANT-BC - Last Filed: 09/03/20 17:44> General Chief Complaint: Eye Problems Stated Complaint: lost vision in right eye for about 5mins Time Seen by Provider: 09/03/20 14:22 Source: patient Mode of arrival: Ambulatory Limitations: no limitations History of Present Illness HPI Narrative: The patient is an 84-year-old male former smoker with history of WA, hyperlipidemia, GERD and left footdrop who presents with his daughter in-law for chief complaint of losing vision in his right eye for 5 minutes. This occurred at 10:00 a.m.. There are no associated symptoms such as numbness, tingling or weakness. He presents with his [id number], who states that he is acting alert oriented looks normal and is acting normal. He takes a baby aspirin per day. His primary care provider is Dr. Olmedo he denies any chest pain shortness of breath, weakness tingling numbness or current visual deficit. He states that his vision is back to complaint normal. Related Data Home Medications Medication Instructions Recorded Confirmed CoQ-10 400 mg PO QPM #0 11/21/16 08/18/20 ascorbic acid (vitamin C) 500 mg PO DAILY #0 11/21/16 08/18/20 tamsulosin [Flomax] 0.8 mg PO QPM #0 11/21/16 08/18/20 [VITAMIN K2] 100 mcg PO QPM #0 03/06/17 08/18/20 alpha lipoic acid 600 mg capsule 600 mg PO DAILY 12/11/18 08/18/20 aspirin 81 mg tablet,delayed 81 mg PO DAILY 12/11/18 08/18/20 release lisinopril 20 mg tablet 20 mg PO QPM 12/11/18 08/18/20 nitroglycerin 0.4 mg sublingual 0.4 mg SL Q5-15M PRN 12/11/18 08/18/20 tablet solifenacin 10 mg tablet 10 mg PO DAILY 12/11/18 08/18/20 Vitamin D3 1,500 units PO DAILY 12/18/18 08/18/20 metoprolol succinate 25 mg PO DAILY 12/18/18 08/18/20 rosuvastatin 5 mg tablet 2.5 mg PO DAILY #0 tab 01/23/19 08/18/20 linaclotide 145 mcg capsule 145 mcg PO DAILY cap 12/24/19 08/18/20 Previous Rx's Medication Instructions Recorded Parking Permit... #1 ea 06/03/20 gabapentin 600 mg tablet 600 mg PO TID #270 tab 09/03/20 Allergies Allergy/AdvReac Type Severity Reaction Status Date / Time No Known Drug Allergies Allergy Verified 09/03/20 13:14 Review of Systems <PAULO Magana - Last Filed: 09/03/20 17:44> Review of Systems Narrative: GENERAL: Denies chills, fatigue, malaise, fever, sweats. HEENT: See HPI RESPIRATORY: Denies dyspnea, cough, wheezing, hemoptysis, sputum. CARDIOVASCULAR: Denies chest pain, palpitations, orthopnea, edema, GASTROINTESTINAL: Denies nausea, vomiting, abdominal pain, diarrhea, constipation, melena. : Denies dysuria, frequency, incontinence, hematuria, urinary retention. MUSCULOSKELETAL: denies weakness, joint pain, or bony pain SKIN: Denies rash, skin lesions, or other NEUROLOGIC: Denies weakness, headache, numbness, change in speech, confusion, seizures, incoordination. PSYCHIATRIC: No concerning psychosocial issues. 12 point review of systems is negative except for those stated above Patient History <PAULO Magana - Last Filed: 09/03/20 17:44> Medical History Balance problems (02/08/16) Chickenpox Coronary artery disease (2008) Coronary artery disease involving [place] coronary artery of [place] heart without angina pectoris (02/08/16) Dysphagia (09/04/16) Essential hypertension (02/08/16) Fatigue (08/03/16) Gastroesophageal reflux disease (06/13/16) GERD (gastroesophageal reflux disease) (Unknown) Headache Hearing loss (2014) History of malignant neoplasm of prostate (04/08/15) Hx of myocardial infarction (Unknown) Hypercholesterolemia (Unknown) Hypertension (Unknown) Left foot drop (03/06/17) Lumbar disc disease (2012) Measles Non-allergic rhinitis Peripheral polyneuropathy (03/06/17) Polio (1950) Prostate cancer (2008) Pure hypercholesterolemia (02/08/16) Spinal stenosis (Unknown) Spinal stenosis of lumbar region (02/08/16) Statin intolerance (02/08/16) Vitamin D deficiency (11/21/16) Surgical History History of prostate surgery (2009) Hx of heart surgery (2009) Hx of hernia repair (Unknown) Status post laminectomy Family History Father No problems noted. Mother Cancer Grandfather No problems noted. Grandmother No problems noted. Grandfather No problems noted. Grandmother Cancer Social History marital status: household members: none Smoking Status: Former smoker second hand exposure: No alcohol intake: current substance use type: does not use Smoking Status: Former smoker alcohol intake frequency: a few times a week Substance Use Type: does not use Exam <PAULO Magana - Last Filed: 09/03/20 17:44> Narrative Exam Narrative: GENERAL: This is a well-nourished, well-developed patient, in no acute distress with family at bedside HEAD: Atraumatic. Normocephalic. No temporal or scalp tenderness. EYES: Pupils equal round and reactive. Extraocular motions intact. No scleral icterus. No injection or drainage. ENT: Nose without bleeding, purulent drainage or septal hematoma. Throat without erythema, tonsillar hypertrophy or exudate. Uvula midline. Airway patent. NECK: Trachea midline. No JVD or lymphadenopathy. Supple, nontender, no meningeal signs. CARDIOVASCULAR: Irregular rate and rhythm RESPIRATORY: Clear to auscultation. Breath sounds equal bilaterally. No wheezes, rales, or rhonchi. No cough. No increased respiratory effort. No accessory muscle use. GASTROINTESTINAL: Abdomen soft, non-tender, nondistended. No hepato-splenomegaly, or palpable masses. No guarding. Active bowel sounds all 4 quadrants EXTREMITIES: No clubbing, cyanosis, or edema. No joint tenderness, effusion, or edema noted. BACK: Nontender without deformity or crepitance. No flank tenderness. NEURO: AOx3. Interactive. Age appropriate. Strength is equal upper lower extremities bilaterally. The left-sided footdrop at baseline. SKIN: No rash or erythema on visible skin. Initial Vital Signs Initial Vital Signs: Vital Signs Temperature 98.4 F 09/03/20 13:10 Pulse Rate 71 09/03/20 13:10 Respiratory Rate 15 09/03/20 13:10 Blood Pressure 164/70 H 09/03/20 13:10 Pulse Oximetry 98 09/03/20 13:10 <Rachael Naranjo MD - Last Filed: 09/03/20 20:01> Initial Vital Signs Initial Vital Signs: Vital Signs Temperature 98.4 F 09/03/20 13:10 Pulse Rate 71 09/03/20 13:10 Respiratory Rate 15 09/03/20 13:10 Blood Pressure 164/70 H 09/03/20 13:10 Pulse Oximetry 98 09/03/20 13:10 Scores <PAULO Magana - Last Filed: 09/03/20 17:44> ABCD2 Age >= 60 years: yes Initial BP. Either SBP >= 140 or DBP >= 90.: yes Clinical features of the TIA: other symptoms Duration of symptoms: < 10 minutes History of diabetes: no ABCD2 Score: 2 GCS [place] coma scale eye opening: Spontaneous [place] coma scale verbal response: Orientated [place] coma scale motor response: Obey commands [place] coma scale total score: 15 NIH Stroke Scale Level of Conciousness: Alert, keenly responsive Ask month/age: Answers both questions correctly. Open/close eyes, close hand: Performs both tasks correctly Best gaze horizontal: Normal Visual yang: No visual loss Facial palsy: Normal symetrical movement Left arm drift: No drift for full 10 sec Right arm drift: No drift for full 10 sec Left leg drift: No drift for full 5 sec Right leg drift: No drift for full 5 sec Limb ataxia: Absent Sensory on face/arms/legs: Normal, no sensory loss Best language: No aphasia, normal Dysarthria: Normal Extinction or inattention: No abnormality Total NIH Stroke scale score: 0 Course <PAULO Magana - Last Filed: 09/03/20 17:44> Orders Ordered: ED Orders 09/03/20 13:21 CT Stroke Stat Urine Drug Screen, Rapid Stat EKG-12 Lead Stat 09/03/20 13:50 Basic Metabolic Panel Stat Complete Blood Count AUTO DIFF Stat Partial Thromboplastin Time Stat Prothrombin Time INR Stat 09/03/20 15:02 COVID19 Stat Acetaminophen (Acetaminophen 325 Mg Tablet) 650 mg PO Q6HR PRN PRN Reason: Fever/Mild Pain (1-3) Apixaban (Apixaban 5 Mg Tablet) 5 mg PO BID ALLI Bisacodyl (Bisacodyl 10 Mg Supp) 10 mg HI DAILY PRN PRN Reason: Constipation Docusate Sodium (Docusate 100 Mg Capsule) 100 mg PO BID PRN PRN Reason: Constipation Naloxone HCl (Naloxone 0.4 Mg/Ml Vial) 0.2 mg IV Q2MIN PRN PRN Reason: Opiate Reversal Ondansetron HCl (Ondansetron 4 Mg/2 Ml Inj) 4 mg IV Q8HR PRN PRN Reason: Nausea And Vomiting Discontinued Medications Sodium Chloride (Normal Saline 0.9%) 1,000 mls @ 150 mls/hr IV CONT ALLI Last Infusion: 09/03/20 19:10 Dose: 0 mls/hr Documented by: Admin: 09/03/20 15:01 Dose: 150 mls/hr Documented by: YAZAN Vital Signs Vital signs: Vital Signs - 8 hr 09/03/20 13:10 09/03/20 13:31 09/03/20 13:32 Temperature 98.4 F Pulse Rate 71 58 L 66 Respiratory Rate 15 Blood Pressure 164/70 H 176/77 H Pulse Oximetry 98 98 98 09/03/20 14:00 09/03/20 14:01 09/03/20 14:30 Temperature Pulse Rate 67 64 67 Respiratory Rate 17 14 20 Blood Pressure 148/65 H 150/74 H Pulse Oximetry 97 96 97 09/03/20 15:00 Temperature Pulse Rate 66 Respiratory Rate 23 Blood Pressure 159/69 H Pulse Oximetry 97 <Rachael Naranjo MD - Last Filed: 09/03/20 20:01> Orders Ordered: ED Orders 09/03/20 13:21 CT Stroke Stat Urine Drug Screen, Rapid Stat EKG-12 Lead Stat 09/03/20 13:50 Basic Metabolic Panel Stat Complete Blood Count AUTO DIFF Stat Partial Thromboplastin Time Stat Prothrombin Time INR Stat 09/03/20 15:02 COVID19 Stat Acetaminophen (Acetaminophen 325 Mg Tablet) 650 mg PO Q6HR PRN PRN Reason: Fever/Mild Pain (1-3) Apixaban (Apixaban 5 Mg Tablet) 5 mg PO BID ALLI Bisacodyl (Bisacodyl 10 Mg Supp) 10 mg HI DAILY PRN PRN Reason: Constipation Docusate Sodium (Docusate 100 Mg Capsule) 100 mg PO BID PRN PRN Reason: Constipation Naloxone HCl (Naloxone 0.4 Mg/Ml Vial) 0.2 mg IV Q2MIN PRN PRN Reason: Opiate Reversal Ondansetron HCl (Ondansetron 4 Mg/2 Ml Inj) 4 mg IV Q8HR PRN PRN Reason: Nausea And Vomiting Discontinued Medications Sodium Chloride (Normal Saline 0.9%) 1,000 mls @ 150 mls/hr IV CONT ALLI Last Infusion: 09/03/20 19:10 Dose: 0 mls/hr Documented by: Admin: 09/03/20 15:01 Dose: 150 mls/hr Documented by: YAZAN Vital Signs Vital signs: Vital Signs - 8 hr 09/03/20 13:10 09/03/20 13:31 09/03/20 13:32 Temperature 98.4 F Pulse Rate 71 58 L 66 Respiratory Rate 15 Blood Pressure 164/70 H 176/77 H Pulse Oximetry 98 98 98 09/03/20 14:00 09/03/20 14:01 09/03/20 14:30 Temperature Pulse Rate 67 64 67 Respiratory Rate 17 14 20 Blood Pressure 148/65 H 150/74 H Pulse Oximetry 97 96 97 09/03/20 15:00 Temperature Pulse Rate 66 Respiratory Rate 23 Blood Pressure 159/69 H Pulse Oximetry 97 MDM - Neuro Symptoms/Deficit <MACEY Magana - Last Filed: 09/03/20 17:44> Lab Data Attestation: I reviewed the patient's lab results. Result diagrams: 09/03/20 13:50 09/03/20 13:50 Labs: Lab Results 09/03/20 09/03/20 09/03/20 Range/Units 13:50 13:50 13:50 WBC 6.2 (4.5-11.0) X10^3/uL RBC 4.02 L (4.5-5.9) X10^6/uL Hgb 12.9 L (13.5-17.5) g/dL Hct 38.7 L (41-53) % MCV 96.1 (80-100) fL MCH 32.1 (26-34) PG MCHC 33.4 (30-36) % RDW 13.4 (11.6-14.8) % Plt Count 133 L (150-400) X10^3/uL Neut % (Auto) 73.6 (50-75) % Lymph % (Auto) 14.7 L (25-40) % [place] % (Auto) 9.2 (3-14) % Eos % (Auto) 2.1 (2-4) % Baso % (Auto) 0.4 (0-2) % Neut # (Auto) 4600 (1780-4515) /uL Lymph # (Auto) 900 L (3220-3186) /uL [place] # (Auto) 600 (0-900) /uL Eos # (Auto) 100 (0-450) /uL Baso # (Auto) 0 (0-100) /uL PT 12.0 (10.1-12.7) SECONDS INR 1.0 (0.9-1.3) APTT 33 (26.4-36.2) SECONDS Sodium 139 (137-145) mmol/L Potassium 4.2 (3.4-5.1) mmol/L Chloride 107 (98-107) mmol/L Carbon Dioxide 28 (22-32) mmol/L BUN 27 H (9-20) mg/dL Creatinine 1.04 (0.66-1.25) mg/dL Estimated GFR > 60.0 (>60) mL/min BUN/Creatinine Ratio 26.0 H (6-22) Glucose 120 H (80-110) mg/dL Calcium 8.4 (8.4-10.2) mg/dL Magnesium (1.6-2.3) mg/dL SARS-CoV-2 (PCR) (Negative) 09/03/20 09/03/20 Range/Units 13:50 15:02 WBC (4.5-11.0) X10^3/uL RBC (4.5-5.9) X10^6/uL Hgb (13.5-17.5) g/dL Hct (41-53) % MCV (80-100) fL MCH (26-34) PG MCHC (30-36) % RDW (11.6-14.8) % Plt Count (150-400) X10^3/uL Neut % (Auto) (50-75) % Lymph % (Auto) (25-40) % [place] % (Auto) (3-14) % Eos % (Auto) (2-4) % Baso % (Auto) (0-2) % Neut # (Auto) (0586-3297) /uL Lymph # (Auto) (0618-8874) /uL [place] # (Auto) (0-900) /uL Eos # (Auto) (0-450) /uL Baso # (Auto) (0-100) /uL PT (10.1-12.7) SECONDS INR (0.9-1.3) APTT (26.4-36.2) SECONDS Sodium (137-145) mmol/L Potassium (3.4-5.1) mmol/L Chloride (98-107) mmol/L Carbon Dioxide (22-32) mmol/L BUN (9-20) mg/dL Creatinine (0.66-1.25) mg/dL Estimated GFR (>60) mL/min BUN/Creatinine Ratio (6-22) Glucose (80-110) mg/dL Calcium (8.4-10.2) mg/dL Magnesium 2.0 (1.6-2.3) mg/dL SARS-CoV-2 (PCR) Negative (Negative) Point of Care Testing Glucose POC [address] scan - head: Radiologist's Impression: [facility] [address] [place] [id number] Scan ReportSigned Patient: Kenneth Ward JMR#: [id number]: 1935cct:[id number]/Sex: 84 / MDate of Service: 09/03/20Loc: EDAccession Number: [id number] Procedure: CT Stroke Ordering Provider: Jaelyn Koenig PROCEDURE: CT STROKE INDICATIONS: lost vision right eye 1000 for 5 mintues TECHNIQUE: Noncontrast 4.5 mm thick angled axial sections acquired from the foramen magnum to the vertex, with coronal reformats. For radiation dose reduction, the following was used: automated exposure control, adjustment of mA and/or kV according to patient size. COMPARISON: [facility], CT, HEAD WITHOUT CONTRAST, 02/11/2016, 14:36. FINDINGS: Image quality: Image degraded by moderate patient motion artifact near the skull base CSF spaces: Basal cisterns are patent. No extra-axial fluid collections. The ventricles are symmetric in size and shape. Brain: No intracranial bleeds or masses. There is moderate cerebral volume loss for age, with resultant ventricular and sulcal prominence. There are moderate periventricular and deep white matter chronic small vessel ischemic changes. There is intracranial internal carotid artery atherosclerosis. Skull and face: Calvarium and visualized facial bones appear intact, without suspicious lesions. Sinuses: Visualized sinuses and mastoids are clear. IMPRESSION: 1. CT head without acute intracranial abnormalities or acute calvarial fractures. 2. Age-related senescent changes and sequela of moderate chronic small vessel ischemic disease. Findings were discussed with YADIRA Magana at 1338 hrs PST. This study fulfills neurological imaging criteria for inclusion or exclusion of acute stroke therapies based on available published neurological guidelines. Dictated by: Srikanth Chakraborty M.D. on 09/03/2020 at 13:35 Approved by: Srikanth Chakraborty M.D. on 09/03/2020 at 13:41 ECG Data Attestation: I personally reviewed and interpreted this ECG as follows: Interpretation: Had atrial fibrillation. Ventricular rate 64. Viewed by Dr. Naranjo. [facility] Narrative Medical decision making narrative: The patient is an 84-year-old male who presents with a chief complaint of losing vision in his right eye for 5 minutes. He is noted to be in atrial fibrillation which she does not have a history thereof. His current NIH is 0. Given risk factors, history of [place], patient has high risk of TIA and subsequent stroke. Thus I spoke with Dr. Cervantes who kindly accepted the patient for observation. Patient and daughter state appreciation. <Rachael Naranjo MD - Last Filed: 09/03/20 20:01> Lab Data Labs: Lab Results 09/03/20 09/03/20 09/03/20 Range/Units 13:50 13:50 13:50 WBC 6.2 (4.5-11.0) X10^3/uL RBC 4.02 L (4.5-5.9) X10^6/uL Hgb 12.9 L (13.5-17.5) g/dL Hct 38.7 L (41-53) % MCV 96.1 (80-100) fL MCH 32.1 (26-34) PG MCHC 33.4 (30-36) % RDW 13.4 (11.6-14.8) % Plt Count 133 L (150-400) X10^3/uL Neut % (Auto) 73.6 (50-75) % Lymph % (Auto) 14.7 L (25-40) % [place] % (Auto) 9.2 (3-14) % Eos % (Auto) 2.1 (2-4) % Baso % (Auto) 0.4 (0-2) % Neut # (Auto) 4600 (8933-6816) /uL Lymph # (Auto) 900 L (9426-9195) /uL [place] # (Auto) 600 (0-900) /uL Eos # (Auto) 100 (0-450) /uL Baso # (Auto) 0 (0-100) /uL PT 12.0 (10.1-12.7) SECONDS INR 1.0 (0.9-1.3) APTT 33 (26.4-36.2) SECONDS Sodium 139 (137-145) mmol/L Potassium 4.2 (3.4-5.1) mmol/L Chloride 107 (98-107) mmol/L Carbon Dioxide 28 (22-32) mmol/L BUN 27 H (9-20) mg/dL Creatinine 1.04 (0.66-1.25) mg/dL Estimated GFR > 60.0 (>60) mL/min BUN/Creatinine Ratio 26.0 H (6-22) Glucose 120 H (80-110) mg/dL Calcium 8.4 (8.4-10.2) mg/dL Magnesium (1.6-2.3) mg/dL SARS-CoV-2 (PCR) (Negative) 09/03/20 09/03/20 Range/Units 13:50 15:02 WBC (4.5-11.0) X10^3/uL RBC (4.5-5.9) X10^6/uL Hgb (13.5-17.5) g/dL Hct (41-53) % MCV (80-100) fL MCH (26-34) PG MCHC (30-36) % RDW (11.6-14.8) % Plt Count (150-400) X10^3/uL Neut % (Auto) (50-75) % Lymph % (Auto) (25-40) % [place] % (Auto) (3-14) % Eos % (Auto) (2-4) % Baso % (Auto) (0-2) % Neut # (Auto) (8987-1392) /uL Lymph # (Auto) (0474-7047) /uL [place] # (Auto) (0-900) /uL Eos # (Auto) (0-450) /uL Baso # (Auto) (0-100) /uL PT (10.1-12.7) SECONDS INR (0.9-1.3) APTT (26.4-36.2) SECONDS Sodium (137-145) mmol/L Potassium (3.4-5.1) mmol/L Chloride (98-107) mmol/L Carbon Dioxide (22-32) mmol/L BUN (9-20) mg/dL Creatinine (0.66-1.25) mg/dL Estimated GFR (>60) mL/min BUN/Creatinine Ratio (6-22) Glucose (80-110) mg/dL Calcium (8.4-10.2) mg/dL Magnesium 2.0 (1.6-2.3) mg/dL SARS-CoV-2 (PCR) Negative (Negative) Point of Care Testing Glucose POC 114 Discharge Plan Departure Patient Disposition: Admitted as Observation Clinical Impression: Visual complaint Atrial fibrillation Qualifiers: Atrial fibrillation type: unspecified Qualified Code(s): I48.91 - Unspecified atrial fibrillation Admit Date/Time: 09/03/20 15:26 Admit Provider: Brandon Cervantes <Rachael Naranjo MD - Last Filed: 09/03/20 20:01> Cosign ED Attending Cosallature Attestation: I was immediately available in the department for consultation throughout this patient's visit. I agree with documentation as above. Rachael Naranjo MD
[2020-09-03 16:16] LABS: COVID19 -Nasal RAPID Negative (Negative)
--- NOTE | 2020-09-03 19:54 | DI.MRI.S_ITS ---
PROCEDURE: MR STROKE Pre- and post-contrast brain MRI, non-contrast brain MR angiogram, pre- and postcontrast neck MR angiogram INDICATIONS: TIA new onset AFib TECHNIQUE: Brain: Noncontrast axial T1 spin echo, axial T2 fast spin echo, sagittal and axial FLAIR, coronal T2 fast spin echo, axial gradient echo, axial diffusion and ADC through the brain. After the administration of contrast, axial 3D VIBE of the cranial vasculature and brain. Brain MRA: Non-contrast 3-D time of flight MR angiogram, with multiple fhoefhf-xchekgdlo-frdrkgjpob (MIP) reformats performed. Neck MRA: Axial and sagittal TruFISP through the neck. Coronal dynamic MR angiogram during administration of contrast in the arterial and venous phases, with 3-dimenstional qdaffqj-lvpibizbh-yjwgckmejc (MIP) reformats constructed from subtraction images. COMPARISON: None. FINDINGS: Image quality: Excellent. BRAIN: CSF spaces: Ventricles are normal in size and shape. Basal cisterns are patent. No extra-axial fluid collections. Brain: No intracranial bleeds or mass effects. Dukes-white matter interface is normal. Diffusion weighted images show no acute ischemic insults. Brainstem appears normal. Normal intravascular flow voids are present. No abnormal intracranial enhancement. Skull and face: Calvarial marrow signal is normal. Orbits appear normal. Sinuses: Sinuses and mastoids are clear. BRAIN MR ANGIOGRAM: Anterior circulation: Intracranial internal carotid arteries are normal in size and enhancement. The flow within the paired anterior cerebral arteries is normal and symmetric. The flow within the middle cerebral arteries is normal and symmetric. The anterior communicating artery is seen. No stenoses, occlusions, or aneurysms. Posterior circulation: The visualized portions of the vertebral arteries demonstrate normal caliber, and join to form a normal appearing basilar artery. The flow within the posterior cerebral arteries is normal and symmetric. No stenoses, occlusions, or aneurysms. NECK MR ANGIOGRAM: Carotids: Great vessels demonstrate a conventional anatomy as they arise from the aortic arch. The origins of the common carotid arteries appear patent. The calibers and courses of both common carotid arteries are normal. 40% focal stenosis involving the left proximal ICA. No right ICA stenosis. Posterior circulation: The origins of the vertebral arteries not well seen. More superior portions of both vertebral arteries demonstrate normal course and caliber, and join to form a normal appearing basilar artery. Miscellaneous: Subclavian arteries appear patent. Pre-contrast images through the neck show no soft tissue abnormalities. IMPRESSION: BRAIN MRI: No acute ischemia identified Diffuse small white matter changes, probably represent chronic microvascular ischemic disease, versus statistically less likely demyelination or other infectious, inflammatory, neurodegenerative etiology, technically nonspecific. BRAIN MR ANGIOGRAM: No intracranial stenosis or occlusion NECK MR ANGIOGRAM: 40% focal stenosis at the left proximal ICA. Dictated by: Harvey Shukla M.D. on 09/03/2020 at 21:39 Approved by: Harvey Shukla M.D. on 09/03/2020 at 21:44
--- NOTE | 2020-09-03 19:56 | DI.ECHO.S_ITS ---
[facility]---------+ [facility] +---------+ : : [address] : : : : [id number] : : : : Phone: [phone]+ Echocardiogram Report + + :Name: ALEJO COWAN Study Date: 09/04/2020 Height: 66 in : :[facility] Weight: 197 lb : : Gender: Male BSA: 2.0 m2 : :: 1935 Age: 84 yrs BP: 141/73 mmHg: :Reason For Study: ATRIAL FIBRILLATION WITH TIA : :Ordering Physician: DEEJAY, : :FLAVIO Performed By: Monik Yoon : :Referring: FLAVIO VILLALBA : + + Interpretation Summary Left ventricular systolic function remains normal with an estimated ejection fraction of 55 to 60% without any focal wall motion abnormality. There is mild concentric LVH which appears unchanged. Diastolic function cannot be assessed because of the atrial fibrillation. The right ventricle appears normal and unchanged from the previous study. Right ventricular systolic pressure cannot be estimated but the CVP is likely around 3 mmHg, similar to the previous study. There is severe left atrial enlargement and mild right atrial enlargement. Both measure larger compared to the previous study. There is mild mitral and aortic valve regurgitation that grossly appear unchanged from the previous study. There is no other significant valvular abnormality. The patient was in atrial fibrillation at 56-71 bpm which has replaced sinus rhythm since the previous study. Procedure: A two-dimensional transthoracic echocardiogram with color flow and Doppler was performed. The study quality was technically difficult. Comparison is made with the echocardiogram of 02/07/2019. The patient was in atrial fibrillation with heart rates between 56-71 bpm during the exam. This is new compared to the previous study. Left Ventricle: The left ventricle is normal in size. There is mild concentric left ventricular hypertrophy. Left ventricular systolic function appears normal without focal wall motion abnormalities. The ejection fraction is estimated to be 55-60%. This is unchanged compared to the previous study. Diastolic function could not be accurately assessed due to atrial fibrillation. Right Ventricle: The right ventricle is normal in size and function. This is unchanged compared to the previous study. Atria: The left atrium is severely dilated. Both atria have mildly increased in size since the prior echo exam. The right atrium is mildly dilated. A patent foramen ovale is present. Mitral Valve: There is mild mitral annular calcification. The mitral valve leaflets appear mildly thickened, but open well. There is mild mitral regurgitation. This is unchanged compared to the previous study. Aortic Valve: The aortic valve is trileaflet. The aortic valve opens well. There is no aortic valve stenosis. There is mild aortic regurgitation. This is unchanged compared to the previous study. Tricuspid Valve: The tricuspid valve is not well visualized, but is grossly normal. No tricuspid regurgitation. Pulmonary artery pressures cannot be estimated because of the lack of a measurable TR jet velocity but the IVC suggests a CVP of around 3 mmHg. Pulmonic Valve: The pulmonic valve is not well visualized. There is no pulmonic valvular regurgitation. There is no other significant valvular heart disease. Great Vessels: The aortic root is normal size. The ascending aorta could not be visualized. The IVC is of normal diameter and collapses greater than 50% with a sniff. This suggests a low right atrial pressure of 3 mm Hg. Pericardium/ Pleura There is no pericardial effusion. There is no pleural effusion. MMode/2D Measurements & Calculations LVIDd: 5.8 cm LVOT diam: 2.4 cm LVIDs: 3.9 cm Ao root diam: 3.9 cm FS: 32.1 % EPSS: 1.1 cm IVSd: 1.2 cm LVPWd: 0.98 cm LV mays. diameter/BSA (cm/m^2): 2.9 LV sys. diameter/BSA (cm/m^2): 2.0 LA A2 area: 36.9 cm2 RA long axis: 6.0 cm LA A4 area: 32.9 cm2 RA area: 23.1 cm2 LA length (vol): 7.1 cm RA vol: 75.7 ml LA vol: 144.3 ml RA : 38.1 ml/m2 LA vol index: 72.6 ml/m2 IVC diam: 1.6 cm RVD1 (basal): 4.0 cm TAPSE: 1.9 cm Doppler Measurements & Calculations Ao V2 max: 101.6 cm/sec LVOT Max Joaquin: 78.8 cm/sec Ao V2 mean: 66.8 cm/sec LV V1 max P.5 mmHg Ao max P.1 mmHg LV V1 VTI: 16.3 cm Ao mean P.0 mmHg LISSA(I,D): 3.7 cm2 Ao V2 VTI: 20.1 cm LISSA(V,D): 3.5 cm2 sev ratio: 0.81 LISSA indexed to BSA (cm^2/m^2): 1.9 MV E max joaquin: 104.8 cm/sec PA V2 max: 66.1 cm/sec MV A max joaquin: 0.73 cm/sec PA V2 mean: 47.0 cm/sec MV E/A: 143.2 PA mean P.98 mmHg Med Peak E' Joaquin: 8.3 cm/sec PA pr(Accel): 39.6 mmHg E/E' med: 12.6 Lat Peak E' Joaquin: 10.0 cm/sec E/E' lat: 10.5 E/e' average: 11.6 MV dec time: 0.26 sec SV(LVOT): 74.0 ml Reading Physician:01:15 PM
[2020-09-03 20:23] LABS: Hemoglobin A1C% w Est Avg Glu 5.8 % (4.0-6.0)
[2020-09-03 20:27] LABS: PTT Partial Thromboplastin Tim 33 SECONDS (26.4-36.2)
[2020-09-03 20:28] LABS: Alanine Aminotransferase 20 IU/L (<50); Albumin 3.9 g/dL (3.5-5.0); Albumin Globulin Ratio 1.3 (1.0-2.8); Alkaline Phosphatase 70 U/L (38-126); Aspartate Aminotransferase 22 IU/L (17-59); Bilirubin Total 0.5 mg/dL (0.2-1.3); Bilirubin Unconjugated 0.5 mg/dL (0.0-1.1); HEMOLYSIS < 15 (0-50); Total Protein 6.9 g/dL (6.3-8.2)
--- NOTE | 2020-09-03 20:39 | PC.NURSE ---
tele applied was delayed due to patient going to MRI. Will wait until patient returns.
[2020-09-03 20:40] LABS: NT-proBNP (BNP-Adult 18+) 854 pg/mL (<450); Troponin I < 0.012 ng/mL (0.01-0.034)
--- NOTE | 2020-09-03 21:35 | P.HP_ITS ---
History of Present Illness History of Present Illness Date Patient Seen: 09/03/20 Time Patient Seen: 21:30 Chief complaint: lost vision in right eye for about 5mins Narrative: Mr. Kenneth Mercedes is an 84-year-old male with a past medical history significant for coronary artery disease, CA with stent x2 (2008), hypertension, hyperlipidemia, GERD, lumbar disc disease with left foot drop and prostate cancer status post implantation of local radiation seeds presents to the ER brought in by his daughter after he experienced a loss of vision in his right eye for 5 minutes. The patient reports in abrupt onset of loss of vision in his right eye at approximately 10:00 a.m.. He reports no other associated symptoms and had no headaches or dizziness, numbness or tingling, disequilibrium or ataxia. He has not previously experienced symptoms such this before. The patient has had no recent cold or illness symptoms, no fevers or chills, nasal congestion or sore throat. He denies complaints of chest pain or palpitations. He reports no shortness of breath cough or wheezing. He has had no epigastric or abdominal pain, nausea vomiting, diarrhea or constipation. Reports ambulating without assistive devices. The patient's symptoms have cleared prior to arrival to the ER. Upon arrival to the ER the patient has a temperature of 98.4?, blood pressure 164/70, heart rate 71, respirations 15 saturating 98% on room air. Imaging is obtained with the chest x-ray finding no acute disease and a CT of the head with no acute intracranial processes noting age-related moderate chronic small vessel ischemic changes. Twelve lead EKG is obtained finding atrial fibrillation with a ventricular rate of 64, Q-waves evident in lead 2, lead [address] or T-wave changes. On laboratory analysis the patient has white count 6.2, hemoglobin of 12.9, hematocrit of 38.7 and platelets of 133. His coagulation studies are within normal limits as are his chemistries with a BUN of 27 and creatinine 1.04. His nonfasting glucose is 120. His COVID screening is negative. The patient is admitted to the hospital service for rule out TIA with a new finding of atrial fibrillation. Patient History Medical History Balance problems (02/08/16) Chickenpox Coronary artery disease (2008) Coronary artery disease involving [place] coronary artery of [place] heart without angina pectoris (02/08/16) Dysphagia (09/04/16) Essential hypertension (02/08/16) Fatigue (08/03/16) Gastroesophageal reflux disease (06/13/16) Headache Hearing loss (2014) History of malignant neoplasm of prostate (04/08/15) Hx of myocardial infarction (Unknown) Hypertension (Unknown) Left foot drop (03/06/17) Lumbar disc disease (2012) Measles Non-allergic rhinitis Peripheral polyneuropathy (03/06/17) Polio (1950) Prostate cancer (2008) Pure hypercholesterolemia (02/08/16) Spinal stenosis of lumbar region (02/08/16) Statin intolerance (02/08/16) Vitamin D deficiency (11/21/16) Surgical History History of prostate surgery (2009) Hx of heart surgery (2008) Hx of hernia repair (Unknown) Status post laminectomy Family & Social History Family History Father No problems noted. Mother Cancer Grandfather No problems noted. Grandmother No problems noted. Grandfather No problems noted. Grandmother Cancer Social History: household members none Safety & Behavioral: Feels Safe in Current Yes Environment Been Physically Hurt or No Threatened By a Person Suicidal Ideation Description None Tobacco & Substance use: Smoking Status Former smoker alcohol intake current alcohol intake frequency a few times a week Substance Use Type does not use Meds Home Medications and Allergies Home Medications Medication Instructions Recorded Confirmed Type CoQ-10 400 mg PO QPM #0 11/21/16 09/03/20 History ascorbic acid (vitamin C) 500 mg PO DAILY #0 11/21/16 09/03/20 History tamsulosin [Flomax] 0.8 mg PO QPM #0 11/21/16 08/18/20 History [VITAMIN K2] 100 mcg PO QPM #0 03/06/17 09/03/20 History alpha lipoic acid 600 mg capsule 600 mg PO BEDTIME 12/11/18 09/03/20 History aspirin 81 mg tablet,delayed 81 mg PO BEDTIME 12/11/18 09/03/20 History release lisinopril 20 mg tablet 20 mg PO QPM 12/11/18 09/03/20 History nitroglycerin 0.4 mg sublingual 0.4 mg SL Q5-15M PRN 12/11/18 09/03/20 History tablet solifenacin 10 mg tablet 10 mg PO DAILY 12/11/18 09/03/20 History Vitamin D3 1,500 units PO DAILY 12/18/18 09/03/20 History metoprolol succinate 25 mg PO DAILY 12/18/18 09/03/20 History rosuvastatin 5 mg tablet 2.5 mg PO DAILY #0 tab 01/23/19 09/03/20 History linaclotide 145 mcg capsule 145 mcg PO DAILY cap 12/24/19 09/03/20 History Parking Permit... #1 ea 06/03/20 09/03/20 Rx gabapentin 600 mg tablet 600 mg PO TID #270 tab 09/03/20 09/03/20 Rx loratadine [Allergy Relief 10 mg PO DAILY 09/03/20 09/03/20 History (loratadine)] Allergies Allergy/AdvReac Type Severity Reaction Status Date / Time No Known Drug Allergies Allergy Verified 09/03/20 13:14 Review of Systems Review of Systems ROS: Yes All systems reviewed with the patient and are negative except as otherwise documented Exam Vital Signs (past 8 hours): - 09/03/20 19:20 09/03/20 20:17 09/03/20 21:47 Temperature 97.3 F L 97.3 F L Pulse Rate 65 65 Respiratory Rate 18 18 Blood Pressure 157/69 H 157/69 H Pulse Oximetry 98 97 98 09/03/20 23:09 09/04/20 00:00 Temperature 98.6 F Pulse Rate 78 61 Respiratory Rate 15 16 Blood Pressure 141/73 H Pulse Oximetry 99 97 Oxygen Delivery Method Room Air Narrative Exam Narrative: GENERAL APPEARANCE: well developed, obese with BMI of 32.2, resting comfortably in bed in no acute distress. HEENT: Symmetrical facies, no ptosis, PERRLA, conjunctiva clear, EOMs intact without nystagmus, no sinus tenderness to percussion, mucous membranes are moist and pink, no uvular deviation. NECK/THYROID: Preserved range of motion, nontender to palpation, no JVD, no carotid bruit, no thyromegaly, trachea midline. LYMPH NODES: no cervical or supraclavicular lymphadenopathy. SKIN: [place], warm and dry, no visible lesions, rashes, ulcerations or petechiae. HEART: Irregularly irregular, S1-S2, 1/6 systolic murmur, no rubs or gallops, brisk capillary refill, no edema LUNGS: Breath sounds with expiratory wheezing, no no coarseness or crackles, dry nonproductive cough present. CHEST: Symmetrical movement, no accessory muscle use, good tidal volume. ABDOMEN: Soft, no distention, dull to percussion, no epigastric or abdominal tenderness, no organomegaly, active bowel tones. EXTREMITIES: moves all extremities, no drift, strength is 5/5 and symmetrical, plantar flexion is symmetrical, decreased dorsiflexion on the left foot no deformities or joint effusions. NEUROLOGIC: AAO x4, no focal neurologic deficits, cranial nerves II-XII grossly intact, visual yang intact and symmetrical bilaterally, sensation intact to light touch. PSYCH: Good eye contact, linear thought process, cooperative, appropriate with stable behavior Objective Labs Result Diagrams: 09/03/20 13:50 09/03/20 13:50 Labs: Laboratory Results - last 24 hr 09/03/20 09/03/20 09/03/20 13:50 13:50 13:50 WBC 6.2 RBC 4.02 L Hgb 12.9 L Hct 38.7 L MCV 96.1 MCH 32.1 MCHC 33.4 RDW 13.4 Plt Count 133 L Neut % (Auto) 73.6 Lymph % (Auto) 14.7 L Gregory % (Auto) 9.2 Eos % (Auto) 2.1 Baso % (Auto) 0.4 Neut # (Auto) 4600 Lymph # (Auto) 900 L Gregory # (Auto) 600 Eos # (Auto) 100 Baso # (Auto) 0 PT 12.0 INR 1.0 APTT 33 Sodium 139 Potassium 4.2 Chloride 107 Carbon Dioxide 28 BUN 27 H Creatinine 1.04 Estimated GFR > 60.0 BUN/Creatinine Ratio 26.0 H Glucose 120 H Hemoglobin A1c Calcium 8.4 Magnesium Total Bilirubin Conjugated Bilirubin Unconjugated Bilirubin AST ALT Alkaline Phosphatase Troponin I NT-Pro-B Natriuret Pep Total Protein Albumin Globulin Albumin/Globulin Ratio U Opiates 300ng/mL cut Ur Oxycodone Screen Urine Methadone Screen Ur Barbiturates Screen U Tricyclic Antidepress Ur Phencyclidine Scrn Ur Amphetamines Screen U Methamphetamines Scrn Ur MDMA Scrn (Ecstasy) U Benzodiazepines Scrn Urine Cocaine Screen U Marijuana (THC) Screen SARS-CoV-2 (PCR) 09/03/20 09/03/20 09/03/20 13:50 15:02 20:00 WBC RBC Hgb Hct MCV MCH MCHC RDW Plt Count Neut % (Auto) Lymph % (Auto) Gregory % (Auto) Eos % (Auto) Baso % (Auto) Neut # (Auto) Lymph # (Auto) Gregory # (Auto) Eos # (Auto) Baso # (Auto) PT INR APTT Sodium Potassium Chloride Carbon Dioxide BUN Creatinine Estimated GFR BUN/Creatinine Ratio Glucose Hemoglobin A1c Calcium Magnesium 2.0 Total Bilirubin 0.5 Conjugated Bilirubin 0.0 Unconjugated Bilirubin 0.5 AST 22 ALT 20 Alkaline Phosphatase 70 Troponin I < 0.012 NT-Pro-B Natriuret Pep 854 H Total Protein 6.9 Albumin 3.9 Globulin 3.0 Albumin/Globulin Ratio 1.3 U Opiates 300ng/mL cut Ur Oxycodone Screen Urine Methadone Screen Ur Barbiturates Screen U Tricyclic Antidepress Ur Phencyclidine Scrn Ur Amphetamines Screen U Methamphetamines Scrn Ur MDMA Scrn (Ecstasy) U Benzodiazepines Scrn Urine Cocaine Screen U Marijuana (THC) Screen SARS-CoV-2 (PCR) Negative 09/03/20 09/03/20 09/04/20 20:00 20:00 02:29 WBC RBC Hgb Hct MCV MCH MCHC RDW Plt Count Neut % (Auto) Lymph % (Auto) Gregory % (Auto) Eos % (Auto) Baso % (Auto) Neut # (Auto) Lymph # (Auto) Gregory # (Auto) Eos # (Auto) Baso # (Auto) PT 12.0 INR 1.0 APTT 33 Sodium Potassium Chloride Carbon Dioxide BUN Creatinine Estimated GFR BUN/Creatinine Ratio Glucose Hemoglobin A1c 5.8 Calcium Magnesium Total Bilirubin Conjugated Bilirubin Unconjugated Bilirubin AST ALT Alkaline Phosphatase Troponin I NT-Pro-B Natriuret Pep Total Protein Albumin Globulin Albumin/Globulin Ratio U Opiates 300ng/mL cut Negative Ur Oxycodone Screen Negative Urine Methadone Screen Negative Ur Barbiturates Screen Negative U Tricyclic Antidepress Negative Ur Phencyclidine Scrn Negative Ur Amphetamines Screen Negative U Methamphetamines Scrn Negative Ur MDMA Scrn (Ecstasy) Negative U Benzodiazepines Scrn Negative Urine Cocaine Screen Negative U Marijuana (THC) Screen Negative SARS-CoV-2 (PCR) Assessment & Plan Assessment & Plan narrative: This is an 84-year-old male with a past medical history significant for coronary artery disease, CA with stent x2 (2009), hypertension, hyperlipidemia, GERD, lumbar disc disease with left foot drop and prostate cancer status post implantation of local radiation seeds who presents with symptoms of TIA lasting 5 minutes and cleared upon arrival the ER but is found to have a new onset atrial fibrillation documented on 12 lead EKG 1. TIA, vision loss right eye, acute, resolved prior to admission, active. -patient experience what is described as complete vision loss in his right eye at 10:00 a.m. this morning lasting for 5 minutes and then clearing returning to normal. -the patient has had no similar manifestations of of neurologic or ocular symptoms. -CT stroke finds no acute intracranial processes. MRI stroke protocol is ordered. -will perform serial neuro checks. -will obtain echocardiogram 2. New finding of atrial fibrillation, acute, present on admission, active -no prior history of atrial fibrillation and no complaints of chest pain and patient denies sensation of palpitations. -patient is found to be in atrial fibrillation documented on 12 lead EKG with ventricular rate controlled at 71. -patient had previous echocardiogram done 02/07/2019 finding normal LV size wall thickness with septal dyskinesis with an EF of 55-60%, severe left atrial enlargement with a PFO present. Patient was in sinus rhythm at the time. -the patient's potassium is 4.2 will obtain a magnesium level and treat if necessary. -patient has not been anticoagulated does take aspirin 81 mg daily. -chads Vasc score is high at 7 (9.8 %) and has bled score is 1-1.5% Ordered Eliquis 5 mg twice daily. -will obtain echocardiogram 3. Peripheral neuropathy, chronic, present on admission. Stable. -continue patient's gabapentin 600 mg 3 times daily. -patient takes alpha lipoic acid 600 mg daily at bedtime which can be released started upon discharge. 4. Hypertension, chronic, present on admission. Stable. continue usual home medication -Continued lisinopril 20 mg daily at bedtime and metoprolol succinate 25 mg daily. 5. Hyperlipidemia, chronic, present on admission. Stable. -patient has been intolerant of statin therapy however he has been tolerant of rosuvastatin 2.5 mg daily at bedtime which is continued.. 6. BPH, chronic, present on admission. Stable. -Continued solifenacin 10 mg daily. VTE prophylaxis: Not indicated, patient started on Eliquis. IV fluid: Saline lock Diet: Heart healthy consistent carbohydrate. Code status: Full code, the patient designates his daughter to be his surrogate decision maker. The patient is admitted to the hospital due to the severity of symptoms and new findings of atrial fibrillation requiring further evaluation and treatment to prevent risks of complications or adverse events. The patient is admitted as an observation with expected length of stay to be less than 2 midnights. COVID-19 Result date/Date tested (Pos, Neg/Pending): 09/03/20 Scores GCS [place] coma scale eye opening: Spontaneous [place] coma scale verbal response: Orientated NIHSS Level of Conciousness: Alert, keenly responsive Ask month/age: Answers both questions correctly. Open/close eyes, close hand: Performs both tasks correctly Best gaze horizontal: Normal Visual yang: No visual loss Facial palsy: Normal symetrical movement Left arm drift: No drift for full 10 sec Right arm drift: No drift for full 10 sec Left leg drift: No drift for full 5 sec Right leg drift: No drift for full 5 sec Limb ataxia: Absent Sensory on face/arms/legs: Normal, no sensory loss Best language: No aphasia, normal Dysarthria: Normal Extinction or inattention: No abnormality Total NIH Stroke scale score: 0 CHADS-VASc Congestive heart failure: no Hypertension: yes Age 75 years or older: yes Diabetes mellitus: no Stroke, TIA, or TE: yes Vascular disease: yes Age 65 to 74 years: yes Sex category (female): Male CHADS-VASc Score: 7
[2020-09-03] MEDS: GABAPENTIN 600 MG TABLET PO (22:04)
[2020-09-03] MEDS: ASPIRIN EC 81 MG TABLET PO (22:04)
[2020-09-03] MEDS: APIXABAN 5 MG TABLET PO (22:04)
[2020-09-04] VITALS: BP 141/73; PULSE 61; RESP 16; TEMP 37; O2SAT 97
[2020-09-04 02:36] LABS: UR Morphine/Opiate cutoff 300 Negative (Negative); Ur Creatinine Normal (Normal); Ur Specific Gravity Normal (Normal); Urine Amphetamines Negative (Negative); Urine Barbiturates Negative (Negative); Urine Benzodiazepines Negative (Negative); Urine Cocaine Negative (Negative); Urine MDMA Negative (Negative); Urine Methadone Negative (Negative); Urine Methamphetamines Negative (Negative); Urine Oxycodone Negative (Negative); Urine Phencyclidine Negative (Negative); Urine Tetrahydrocannabinol Negative (Negative); Urine Tricyclic Antidepressant Negative (Negative); Urine pH Normal (Normal)
[2020-09-04 03:18] VITALS: BP 136/66; PULSE 60; RESP 16; TEMP 36.8; O2SAT 97
--- NOTE | 2020-09-04 03:31 | PC.NURSE ---
pt has blood sugar checks ordered but as per pt, he is not diabetic and is not taking insulin at home. notified hospitalist and because of pt A1C at 5.8, hospitalist decided to discontinue blood sugar checks
[2020-09-04 06:28] LABS: Add Manual Diff / Slide Review NO; Basophils Absolute Auto 0 /uL (0-100); Basophils Percent Auto 0.5 % (0-2); Eosinophils Absolute Auto 400 /uL (0-450); Eosinophils Percent Auto 3.9 % (2-4); Hemoglobin 15.4 g/dL (13.5-17.5); Lymphocytes Absolute Auto 1700 /uL (1100-4500); Lymphocytes Percent Auto 16.9 % (25-40); Mean Corpuscular HGB Conc 34.2 % (30-36); Mean Corpuscular Hemoglobin 31.7 PG (26-34); Mean Corpuscular Volume 92.9 fL (80-100); Monocytes Absolute Auto 1000 /uL (0-900); Monocytes Percent Auto 10.7 % (3-14); Neutrophils Absolute Auto 6700 /uL (1500-7000); Platelet Count 201 X10^3/uL (150-400); Red Blood Cell Count 4.84 X10^6/uL (4.5-5.9); Red Cell Distribution Width 13.6 % (11.6-14.8); White Blood Cell Count 9.8 X10^3/uL (4.5-11.0)
[2020-09-04 06:33] LABS: Cholesterol 236 mg/dL (140-199); HDL Cholesterol 83 mg/dL (40-60); LDL Cholesterol Calculated 122 mg/dL (<100); Magnesium 1.8 mg/dL (1.6-2.3); Triglycerides 154 mg/dL (35-150)
[2020-09-04 06:34] LABS: BUN Creatinine Ratio 24.2 (6-22); Blood Urea Nitrogen 15 mg/dL (9-20); Calcium 9.7 mg/dL (8.4-10.2); Carbon Dioxide 31 mmol/L (22-32); Chloride 107 mmol/L (98-107); Estimated Glomerular Filt Rate > 60.0 mL/min (>60); Glucose 132 mg/dL (80-110); HEMOLYSIS < 15 (0-50); Potassium 3.8 mmol/L (3.4-5.1); Sodium 142 mmol/L (137-145)
[2020-09-04 07:24] VITALS: BP 124/62; PULSE 61; RESP 16; TEMP 36.4; O2SAT 97
[2020-09-04] MEDS: ROSUVASTATIN 10 MG TABLET 2.5 MG PO (08:37)
[2020-09-04] MEDS: GABAPENTIN 600 MG TABLET PO (08:37)
[2020-09-04] MEDS: APIXABAN 5 MG TABLET PO (08:37)
[2020-09-04 08:38] VITALS: BP 124/63; PULSE 62
[2020-09-04] MEDS: METOPROLOL ER 25 MG TABLET PO (08:38)
[2020-09-04 09:42] VITALS: O2SAT 97
--- NOTE | 2020-09-04 10:25 | PC.NURSE ---
Addendum entered by Jaskaran Baugh R.N. 09/04/20 14:39: D/C instructions discussed with Pt and daughter in law. Both state understanding of instructions. Pt readied for d/c, dressed, IV out intact, teleoff. Pt escorted to car by DOTTIE Carey. Original Note: Pt rouses easily, is alert and oriented and conversational. Pt offers no overt c/o. Discussing plan for the day. Dr. Cervantes in to see Pt.
--- NOTE | 2020-09-04 10:52 | PT.IIE ---
Surgical History (Last Reviewed 09/04/20 @ 03:11 by YOANDY Jones) History of prostate surgery (2009) Hx of heart surgery (2008) Hx of hernia repair (Unknown) Status post laminectomy Medical History (Last Reviewed 09/04/20 @ 03:26 by YOANDY Jones) Balance problems (02/08/16) Chickenpox Coronary artery disease (2008) Coronary artery disease involving [place] coronary artery of [place] heart without angina pectoris (02/08/16) Dysphagia (09/04/16) Essential hypertension (02/08/16) Fatigue (08/03/16) Gastroesophageal reflux disease (06/13/16) Headache Hearing loss (2014) History of malignant neoplasm of prostate (04/08/15) Hx of myocardial infarction (Unknown) Hypertension (Unknown) Left foot drop (03/06/17) Lumbar disc disease (2012) Measles Non-allergic rhinitis Peripheral polyneuropathy (03/06/17) Polio (1950) Prostate cancer (2008) Pure hypercholesterolemia (02/08/16) Spinal stenosis of lumbar region (02/08/16) Statin intolerance (02/08/16) Vitamin D deficiency (11/21/16) Physical Therapy Inpatient Evaluation/Re-Eval M1 PT/OT-IP Prior Functional Status Start: 09/04/20 13:22 Freq: NEEDED Status: Active Protocol: Document 09/04/20 10:52 AB (Rec: 09/04/20 13:44 AB [email or web address]) Medical Review Prior Functional Status Medical History Reviewed Yes Communication able to make needs known Mobility and Gait pt stated that he is modified independent with all mobilities and ambulation without AD indoors but uses a SPC for outdoor ambulation; occasionally uses a 4WW indoors when he has to carry things around Social History Household Members none Living Arrangements House Number of Floors (Floors) One Floor Number of Stairs To Enter/Railing? 2 steps to enter with L rail ascending Home Environment Standard Height Toilet,Walk in Shower,Tub/Shower Additional Social History Comment [id number] checks on pt pt stated that he takes a bath and does not like showers M2 PT-IP Current Condition Start: 09/04/20 13:22 Freq: NEEDED Status: Active Protocol: Document 09/04/20 10:52 AB (Rec: 09/04/20 13:44 AB [email or web address]) Physical Therapy Current Condition Current Condition Evaluation Date 09/04/20 Treatment Diagnosis TIA; difficulty in walking Onset Date 09/03/20 M3 PT-IP Subjective Start: 09/04/20 13:22 Freq: NEEDED Status: Active Protocol: Document 09/04/20 10:52 AB (Rec: 09/04/20 13:44 AB [id number]) Subjective Physical Therapy Visit Type Type Initial Evaluation Visit Start Time 10:52 Visit Stop Time 11:17 Total Visit Minutes 25 Number of [employer] Visits 0 Physical Therapy Visit Comments Patient Comments pt is agreeable to do PT; DIL in room with pt M4 PT-IP Mobility and Gait Start: 09/04/20 13:22 Freq: NEEDED Status: Active Protocol: Document 09/04/20 10:52 AB (Rec: 09/04/20 13:44 AB [id number]) PT-Bed Mobility Assessment Supine to Sit Supine to Sit Standby Assistance Sit to Supine Sit to Supine Standby Assistance Scooting Scooting to Edge of Bed Standby Assistance Scooting Up and Down in Bed Standby Assistance PT-Transfer Assessment Sit to and From Stand Sit to and from Stand Standby Assistance Equipment Transfer Assistive Device None,Gait Belt Orthotic/Prosthetic Devices or Brace: No Comments Mobility Comments completed supine to sit SBA. pt was able to sit on EOB SBA. completed sit to stand SBA and ambulated in room CGA to min A without AD. c/o feeling oozy but dissipated afterwards. pt with unsteady gait without use of AD. assessed ambulation using SPC and completed 75 ft SBA. ambulated back to room and went back to bed. call light and table placed within reach. left pt with DIL in room. Gait Assessment Gait Gait Assistance Required: Standby Assistance,Contact Guard Assist,Minimum Assistance Distance (Feet) 75 Able to Maintain Weight Bearing Status Yes During Gait Assistive Devices Assistive Device None,Gait Belt,Straight Cane Orthotic/Prosthetic Devices or Brace: No Gait Deviations General Gait Pattern Decreased Stride Length, Decreased Feet Clearance, Narrow Based Gait Factors Limiting Gait Function Factors Limiting Gait Function Poor Balance Comments Gait Comments completed ambulation without AD CGA to min A and cues. presents with unsteady gait needing to reach for the wall for support. assessed ambulation with use of SPC and completed ~ 75 ft SBA and cues for safety. presents with decrease [place] and RLE tending to cross over to L side. Pt has slight foot drop on LLE but stated that he used to have an AFO but does not use it because he feels that it does not help and that he can manage without it. pt also have BLE neuropathy. pt also can be impulsive. educated pt on safety and use of SPC at this time and oupt PT recommendation. pt agreed. Stair Climbing Assessment Evaluation Level of Assist On Stairs Contact Guard Assistance,1 Person Assistance Devices Stair Climbing Assistive Devices Straight Cane,Left Railing Technique/Endurance Stair Climbing Direction Ascend and Descend Stair Climbing Technique Step to Step Number of Steps Climbed 1 Query Text: Stair Climbing Set # Repetitions (reps) 2 PT-Balance Assessment Sitting Balance and Reactions Static Sitting Balance Ability Good Dynamic Sitting Balance Ability Good Standing Balance and Reactions Static Standing Balance Ability Good Dynamic Standing Balance Ability Fair Device Used without AD M5 PT-IP Objective Assessments Start: 09/04/20 13:22 Freq: NEEDED Status: Active Protocol: Document 09/04/20 10:52 AB (Rec: 09/04/20 13:44 AB [email or web address]) Orientation Orientation/Cognition Level of Alertness Alert Orientation Name,Place,Situation Safety Awareness Decreased Safety Awareness Memory Description No Deficits Noted Gross Range of Motion Lower Extremity ROM Assessment Within Functional Limits Strength Lower Extremity Strength Assessment Left Impaired Ankle 2-/5 Sensation Assessment Sensation Gross Sensation Right LE Impaired,Left LE Impaired Sensation Description Numbness Comments Sensation Comments pt stated that he has neuropathy on BLE from the knees down to B feet M6 PT-IP Treatment Start: 09/04/20 13:22 Freq: NEEDED Status: Active Protocol: Document 09/04/20 10:52 AB (Rec: 09/04/20 13:44 AB [email or web address]) Physical Therapy Treatment Education Education Provided Safety M7 PT-IP Assessment and Plan Start: 09/04/20 13:22 Freq: NEEDED Status: Active Protocol: Document 09/04/20 10:52 AB (Rec: 09/04/20 13:44 AB [email or web address]) PT Summary Assessment and Plan Potential Rehabilitation Potential Good Status of Condition at Evaluation Stable Summary Impairments Pain,ROM,Strength,Balance, Coordination,Sensation,Tone, Cognition,Bed Mobility, Transfers,Gait,Activity Tolerance Assessment Summary pt requiring SBA to CGa with mobility using SPC. recommending use of SPC at this time and pt will benefit from outpt PT for standing balance. pt agreed. Goals Bed Mobility Goal Independent Transfer Goal Independent,Cane Gait Goal Independent,Cane Gait Distance 100 Other Goals improve ambulation without AD 150 ft SBA up/down 2 steps L rail mod I Days to Meet Goals 5 Frequency of Treatment Frequency Of Treatment Once a Day Treatment Plan Physical Therapy Treatment Plan Bed Mobility Training,Transfer Training,Gait Training, Therapeutic Exercise,Balance Retraining,Discharge Planning, Hot or Cold Pack,Neuromuscular Re-ed,Manual Therapy Recommendations To Nursing Amount of Assist Needed Standby Assistance Discharge Recommendations PT Discharge Recommendations Home,Outpatient PT Transportation Needs at Discharge Private Vehicle
--- NOTE | 2020-09-04 11:27 | P.DS_ITS ---
History of Present Illness History of Present Illness Date Patient Seen: 09/04/20 Time Patient Seen: 11:27 Chief complaint: lost vision in right eye for about 5mins Narrative: As per YOANDY Jones: Mr. Kenneth Mercedes is an 84-year-old male with a past medical history significant for coronary artery disease, [place] with stent x2 (2008), hypertension, hyperlipidemia, GERD, lumbar disc disease with left foot drop and prostate c ancer status post implantation of local radiation seeds presents to the ER brought in by his daughter after he experienced a loss of vision in his right eye for 5 minutes. The patient reports in abrupt onset of loss of vision in his right eye at approximately 10:00 a.m.. He reports no other associated symptoms and had no headaches or dizziness, numbness or tingling, disequilibrium or ataxia. He has not previously experienced symptoms such this before. The patient has had no recent cold or illness symptoms, no fevers or chills, nasal congestion or sore throat. He denies complaints of chest pain or palpitations. He reports no shortness of breath cough or wheezing. He has had no epigastric or abdominal pain, nausea vomiting, diarrhea or constipation. Reports ambulating without assistive devices. The patient's symptoms have cleared prior to arrival to the ER. Upon arrival to the ER the patient has a temperature of 98.4?, blood pressure 164/70, heart rate 71, respirations 15 saturating 98% on room air. Imaging is obtained with the chest x-ray finding no acute disease and a CT of the head with no acute intracranial processes noting age-related moderate chronic small vessel ischemic changes. Twelve lead EKG is obtained finding atrial fibrillation with a ventricular rate of 64, Q-waves evident in lead 2, lead [address] or T-wave changes. On laboratory analysis the patient has white count 6.2, hemoglobin of 12.9, hematocrit of 38.7 and platelets of 133. His coagulation studies are within normal limits as are his chemistries with a BUN of 27 and creatinine 1.04. His nonfasting glucose is 120. His COVID screening is negative. The patient is admitted to the hospital service for rule out TIA with a new finding of atrial fibrillation. Discharge Providers Provider Date of admission: 09/03/20 15:26 Discharge Date: 09/04/20 Primary care physician: Osbaldo Cuevas MD Consults: 09/03/20 19:43 Consult to Discharge Planning Routine Comment: Consult to Occupational Therapy Evaluate & Treat Comment: Physician Instructions: Evaluate and treat Consult to Physical Therapy Evaluate & Treat Comment: Physician Instructions: Evaluate and Treat 09/03/20 22:11 Consult to Respiratory Therapy Evaluate & Treat Comment: Ev Physician Instructions: Evaluate and treat Discharge provider: Brandon Cervantes DO Summary Hospital Course Discharge Diagnosis: 1. TIA, vision loss right eye, acute, resolved prior to admission, active. -patient experience what is described as complete vision loss in his right eye at 10:00 a.m. this morning lasting for 5 minutes and then clearing returning to normal. -the patient has had no similar manifestations of of neurologic or ocular symptoms. -CT stroke finds no acute intracranial processes. MRI stroke protocol is ordered. -will perform serial neuro checks. -will obtain echocardiogram 2. New finding of atrial fibrillation, acute, present on admission, active -no prior history of atrial fibrillation and no complaints of chest pain and patient denies sensation of palpitations. -patient is found to be in atrial fibrillation documented on 12 lead EKG with ventricular rate controlled at 71. -patient had previous echocardiogram done 02/07/2019 finding normal LV size wall thickness with septal dyskinesis with an EF of 55-60%, severe left atrial enlargement with a PFO present. Patient was in sinus rhythm at the time. -the patient's potassium is 4.2 will obtain a magnesium level and treat if necessary. -patient has not been anticoagulated does take aspirin 81 mg daily. -chads Vasc score is high at 7 (9.8 %) and has bled score is 1-1.5% Ordered Eliquis 5 mg twice daily. -will obtain echocardiogram 3. Peripheral neuropathy, chronic, present on admission. Stable. -continue patient's gabapentin 600 mg 3 times daily. -patient takes alpha lipoic acid 600 mg daily at bedtime which can be released started upon discharge. 4. Hypertension, chronic, present on admission. Stable. continue usual home medication -Continued lisinopril 20 mg daily at bedtime and metoprolol succinate 25 mg daily. 5. Hyperlipidemia, chronic, present on admission. Stable. -patient has been intolerant of statin therapy however he has been tolerant of rosuvastatin 2.5 mg daily at bedtime which is continued.. 6. BPH, chronic, present on admission. Stable. Hospital Course: his is an 84-year-old male with a past medical history significant for coronary artery disease, [place] with stent x2 (2008), hypertension, hyperlipidemia, GERD, lumbar disc disease with left foot drop and prostate cancer status post implantation of local radiation seeds who presents with symptoms of TIA lasting 5 minutes and cleared upon arrival the ER but was found to have a new onset atrial fibrillation documented on 12 lead EKG. MRI did not reveal an acute infarct nor any significant arterial stenosis. Echocardiogram did not reveal evidence of an atrial thrombus, and did show a normal ejection fraction with continued by atrial enlargement. He was started on apixaban and observed overnight. He had no significant events on telemetry except for his atrial fibrillation, and he had no recurrence of his initial vision changes nor new neurological findings. He was discharged home with plan for follow-up with his primary care provider. Exam Vital Signs (past 8 hours): - 09/04/20 07:24 09/04/20 08:38 09/04/20 09:42 Temperature 97.6 F Pulse Rate 61 62 Respiratory Rate 16 Blood Pressure 124/62 124/63 Pulse Oximetry 97 97 Oxygen Delivery Method Room Air Oxygen Flow Rate 0 Narrative Exam Narrative: GENERAL APPEARANCE: well developed, obese with BMI of 32.2, resting comfortably in bed in no acute distress. HEENT: Symmetrical facies, no ptosis, PERRLA, conjunctiva clear, EOMs intact without nystagmus, no sinus tenderness to percussion, mucous membranes are moist. HEART: Irregularly irregular, S1-S2, 1/6 systolic murmur, no rubs or gallops, brisk capillary refill, no edema LUNGS: Breath sounds with expiratory wheezing, no no coarseness or crackles, dry nonproductive cough present. CHEST: Symmetrical movement, no accessory muscle use, good tidal volume. ABDOMEN: Soft, no distention, dull to percussion, no epigastric or abdominal tenderness, no organomegaly, active bowel tones. EXTREMITIES: moves all extremities, no drift, strength is 5/5 and symmetrical, plantar flexion is symmetrical, decreased dorsiflexion on the left foot no deformities or joint effusions. NEUROLOGIC: AAO x4, no focal neurologic deficits, cranial nerves II-XII grossly intact, visual yang intact and symmetrical bilaterally, sensation intact to light touch. PSYCH: Good eye contact, linear thought process, cooperative, appropriate with stable behavior Objective Imaging Echo: Radiologist's impression: Left ventricular systolic function remains normal with an estimated ejection fraction of 55 to 60% without any focal wall motion abnormality. There is mild concentric LVH which appears unchanged. Diastolic function cannot be assessed because of the atrial fibrillation. The right ventricle appears normal and unchanged from the previous study. Right ventricular systolic pressure cannot be estimated but the CVP is likely around 3 mmHg, similar to the previous study. There is severe left atrial enlargement and mild right atrial enlargement. Both measure larger compared to the previous study. There is mild mitral and aortic valve regurgitation that grossly appear unchanged from the previous study. There is no other significant valvular abnormality. The patient was in atrial fibrillation at 56-71 bpm which has replaced sinus rhythm since the previous study. MRI - head: Radiologist's impression: BRAIN: CSF spaces: Ventricles are normal in size and shape. Basal cisterns are patent. No extra-axial fluid collections. Brain: No intracranial bleeds or mass effects. Dukes-white matter interface is normal. Diffusion weighted images show no acute ischemic insults. Brainstem appears normal. Normal intravascular flow voids are present. No abnormal intracranial enhancement. Skull and face: Calvarial marrow signal is normal. Orbits appear normal. Sinuses: Sinuses and mastoids are clear. BRAIN MR ANGIOGRAM: Anterior circulation: Intracranial internal carotid arteries are normal in size and enhancement. The flow within the paired anterior cerebral arteries is normal and symmetric. The flow within the middle cerebral arteries is normal and symmetric. The anterior communicating artery is seen. No stenoses, occlusions, or aneurysms. Posterior circulation: The visualized portions of the vertebral arteries demonstrate normal caliber, and join to form a normal appearing basilar artery. The flow within the posterior cerebral arteries is normal and symmetric. No stenoses, occlusions, or aneurysms. NECK MR ANGIOGRAM: Carotids: Great vessels demonstrate a conventional anatomy as they arise from the aortic arch. The origins of the common carotid arteries appear patent. The calibers and courses of both common carotid arteries are normal. 40% focal stenosis involving the left proximal ICA. No right ICA stenosis. Posterior circulation: The origins of the vertebral arteries not well seen. More superior portions of both vertebral arteries demonstrate normal course and caliber, and join to form a normal appearing basilar artery. Miscellaneous: Subclavian arteries appear patent. Pre-contrast images through the neck show no soft tissue abnormalities. IMPRESSION: BRAIN MRI: No acute ischemia identified Diffuse small white matter changes, probably represent chronic microvascular ischemic disease, versus statistically less likely demyelination or other infectious, inflammatory, neurodegenerative etiology, technically nonspecific. BRAIN MR ANGIOGRAM: No intracranial stenosis or occlusion NECK MR ANGIOGRAM: 40% focal stenosis at the left proximal ICA. Labs Result Diagrams: 09/04/20 05:28 09/04/20 05:28 Labs: Laboratory Results - last 24 hr 09/03/20 09/03/20 09/03/20 13:50 13:50 13:50 WBC 6.2 RBC 4.02 L Hgb 12.9 L Hct 38.7 L MCV 96.1 MCH 32.1 MCHC 33.4 RDW 13.4 Plt Count 133 L Neut % (Auto) 73.6 Lymph % (Auto) 14.7 L [place] % (Auto) 9.2 Eos % (Auto) 2.1 Baso % (Auto) 0.4 Neut # (Auto) 4600 Lymph # (Auto) 900 L [place] # (Auto) 600 Eos # (Auto) 100 Baso # (Auto) 0 PT 12.0 INR 1.0 APTT 33 Sodium 139 Potassium 4.2 Chloride 107 Carbon Dioxide 28 BUN 27 H Creatinine 1.04 Estimated GFR > 60.0 BUN/Creatinine Ratio 26.0 H Glucose 120 H Hemoglobin A1c Calcium 8.4 Magnesium Total Bilirubin Conjugated Bilirubin Unconjugated Bilirubin AST ALT Alkaline Phosphatase Troponin I NT-Pro-B Natriuret Pep Total Protein Albumin Globulin Albumin/Globulin Ratio Triglycerides Cholesterol LDL Cholesterol, Calc HDL Cholesterol U Opiates 300ng/mL cut Ur Oxycodone Screen Urine Methadone Screen Ur Barbiturates Screen U Tricyclic Antidepress Ur Phencyclidine Scrn Ur Amphetamines Screen U Methamphetamines Scrn Ur MDMA Scrn (Ecstasy) U Benzodiazepines Scrn Urine Cocaine Screen U Marijuana (THC) Screen SARS-CoV-2 (PCR) 09/03/20 09/03/20 09/03/20 13:50 15:02 20:00 WBC RBC Hgb Hct MCV MCH MCHC RDW Plt Count Neut % (Auto) Lymph % (Auto) [place] % (Auto) Eos % (Auto) Baso % (Auto) Neut # (Auto) Lymph # (Auto) [place] # (Auto) Eos # (Auto) Baso # (Auto) PT INR APTT Sodium Potassium Chloride Carbon Dioxide BUN Creatinine Estimated GFR BUN/Creatinine Ratio Glucose Hemoglobin A1c Calcium Magnesium 2.0 Total Bilirubin 0.5 Conjugated Bilirubin 0.0 Unconjugated Bilirubin 0.5 AST 22 ALT 20 Alkaline Phosphatase 70 Troponin I < 0.012 NT-Pro-B Natriuret Pep 854 H Total Protein 6.9 Albumin 3.9 Globulin 3.0 Albumin/Globulin Ratio 1.3 Triglycerides Cholesterol LDL Cholesterol, Calc HDL Cholesterol U Opiates 300ng/mL cut Ur Oxycodone Screen Urine Methadone Screen Ur Barbiturates Screen U Tricyclic Antidepress Ur Phencyclidine Scrn Ur Amphetamines Screen U Methamphetamines Scrn Ur MDMA Scrn (Ecstasy) U Benzodiazepines Scrn Urine Cocaine Screen U Marijuana (THC) Screen SARS-CoV-2 (PCR) Negative 09/03/20 09/03/20 09/04/20 20:00 20:00 02:29 WBC RBC Hgb Hct MCV MCH MCHC RDW Plt Count Neut % (Auto) Lymph % (Auto) [place] % (Auto) Eos % (Auto) Baso % (Auto) Neut # (Auto) Lymph # (Auto) [place] # (Auto) Eos # (Auto) Baso # (Auto) PT 12.0 INR 1.0 APTT 33 Sodium Potassium Chloride Carbon Dioxide BUN Creatinine Estimated GFR BUN/Creatinine Ratio Glucose Hemoglobin A1c 5.8 Calcium Magnesium Total Bilirubin Conjugated Bilirubin Unconjugated Bilirubin AST ALT Alkaline Phosphatase Troponin I NT-Pro-B Natriuret Pep Total Protein Albumin Globulin Albumin/Globulin Ratio Triglycerides Cholesterol LDL Cholesterol, Calc HDL Cholesterol U Opiates 300ng/mL cut Negative Ur Oxycodone Screen Negative Urine Methadone Screen Negative Ur Barbiturates Screen Negative U Tricyclic Antidepress Negative Ur Phencyclidine Scrn Negative Ur Amphetamines Screen Negative U Methamphetamines Scrn Negative Ur MDMA Scrn (Ecstasy) Negative U Benzodiazepines Scrn Negative Urine Cocaine Screen Negative U Marijuana (THC) Screen Negative SARS-CoV-2 (PCR) 09/04/20 09/04/20 09/04/20 05:28 05:28 05:28 WBC 9.8 D RBC 4.84 Hgb 15.4 Hct 45.0 MCV 92.9 D MCH 31.7 MCHC 34.2 RDW 13.6 Plt Count 201 Neut % (Auto) 68.0 Lymph % (Auto) 16.9 L [place] % (Auto) 10.7 Eos % (Auto) 3.9 Baso % (Auto) 0.5 Neut # (Auto) 6700 Lymph # (Auto) 1700 [place] # (Auto) 1000 H Eos # (Auto) 400 Baso # (Auto) 0 PT INR APTT Sodium 142 Potassium 3.8 Chloride 107 Carbon Dioxide 31 BUN 15 Creatinine 0.62 L Estimated GFR > 60.0 BUN/Creatinine Ratio 24.2 H Glucose 132 H Hemoglobin A1c Calcium 9.7 Magnesium 1.8 Total Bilirubin Conjugated Bilirubin Unconjugated Bilirubin AST ALT Alkaline Phosphatase Troponin I NT-Pro-B Natriuret Pep Total Protein Albumin Globulin Albumin/Globulin Ratio Triglycerides Cholesterol LDL Cholesterol, Calc HDL Cholesterol U Opiates 300ng/mL cut Ur Oxycodone Screen Urine Methadone Screen Ur Barbiturates Screen U Tricyclic Antidepress Ur Phencyclidine Scrn Ur Amphetamines Screen U Methamphetamines Scrn Ur MDMA Scrn (Ecstasy) U Benzodiazepines Scrn Urine Cocaine Screen U Marijuana (THC) Screen SARS-CoV-2 (PCR) 09/04/20 05:28 WBC RBC Hgb Hct MCV MCH MCHC RDW Plt Count Neut % (Auto) Lymph % (Auto) [place] % (Auto) Eos % (Auto) Baso % (Auto) Neut # (Auto) Lymph # (Auto) [place] # (Auto) Eos # (Auto) Baso # (Auto) PT INR APTT Sodium Potassium Chloride Carbon Dioxide BUN Creatinine Estimated GFR BUN/Creatinine Ratio Glucose Hemoglobin A1c Calcium Magnesium Total Bilirubin Conjugated Bilirubin Unconjugated Bilirubin AST ALT Alkaline Phosphatase Troponin I NT-Pro-B Natriuret Pep Total Protein Albumin Globulin Albumin/Globulin Ratio Triglycerides 154 H Cholesterol 236 H LDL Cholesterol, Calc 122 H HDL Cholesterol 83 H U Opiates 300ng/mL cut Ur Oxycodone Screen Urine Methadone Screen Ur Barbiturates Screen U Tricyclic Antidepress Ur Phencyclidine Scrn Ur Amphetamines Screen U Methamphetamines Scrn Ur MDMA Scrn (Ecstasy) U Benzodiazepines Scrn Urine Cocaine Screen U Marijuana (THC) Screen SARS-CoV-2 (PCR) [facility] Medical History Balance problems (02/08/16) Chickenpox Coronary artery disease (2008) Coronary artery disease involving [place] coronary artery of [place] heart without angina pectoris (02/08/16) Dysphagia (09/04/16) Essential hypertension (02/08/16) Fatigue (08/03/16) Gastroesophageal reflux disease (06/13/16) Headache Hearing loss (2014) History of malignant neoplasm of prostate (04/08/15) Hx of myocardial infarction (Unknown) Hypertension (Unknown) Left foot drop (03/06/17) Lumbar disc disease (2012) Measles Non-allergic rhinitis Peripheral polyneuropathy (03/06/17) Polio (1950) Prostate cancer (2008) Pure hypercholesterolemia (02/08/16) Spinal stenosis of lumbar region (02/08/16) Statin intolerance (02/08/16) Vitamin D deficiency (11/21/16) Surgical History History of prostate surgery (2009) Hx of heart surgery (2008) Hx of hernia repair (Unknown) Status post laminectomy Family History Father No problems noted. Mother Cancer Grandfather No problems noted. Grandmother No problems noted. Grandfather No problems noted. Grandmother Cancer Social History marital status: household members: none Smoking Status: Former smoker second hand exposure: No alcohol intake: current substance use type: does not use Discharge Plan Discharge Plan Patient Disposition: Home Provider Discharge Comment: You were admitted to the hospital after an episode of a visual deficit. This was likely due to a TIA. You were found to have atrial fibrillation, medication was added to reduce risk of further events. Discharge orders & Medications Prescriptions: New Eliquis 5 mg Tablet 5 mg PO BID 30 Days Qty: 60 RF: 0 Continued aspirin [Adult Low Dose Aspirin] 81 mg tablet,delayed release (DR/EC) 81 mg PO BEDTIME RF: 0 lisinopril 20 mg tablet 20 mg PO QPM RF: 0 Vesicare 10 mg tablet 10 mg PO DAILY RF: 0 nitroglycerin 0.4 mg tablet, sublingual 0.4 mg SL Q5-15M PRN (Reason: Chest Pain) RF: 0 alpha lipoic acid 600 mg capsule 600 mg PO BEDTIME RF: 0 tamsulosin [Flomax] 0.4 MG capsule,extended release 24hr 0.8 mg PO QPM Qty: 0 RF: 0 CoQ-10 400 mg PO QPM Qty: 0 RF: 0 ascorbic acid (vitamin C) 500 MG tablet 500 mg PO DAILY Qty: 0 RF: 0 [VITAMIN K2] 100 mcg PO QPM Qty: 0 RF: 0 (DME) Parking Permit... Qty: 1 RF: 0 gabapentin 600 mg tablet 600 mg PO TID Qty: 270 RF: 1 linaclotide 145 mcg capsule 145 mcg PO DAILY RF: 0 metoprolol succinate 25 mg tablet extended release 24 hr 25 mg PO DAILY RF: 0 Vitamin D3 1,500 unit 1,500 units PO DAILY RF: 0 loratadine [Allergy Relief (loratadine)] 10 mg Tablet 10 mg PO DAILY RF: 0 Changed rosuvastatin [Crestor] 5 mg tablet 5 mg PO DAILY 30 Days Qty: 30 RF: 0 Follow up/Referrals: Osbaldo Cuevas MD [Primary Care Provider] - Diet/Activity/Treatments Diet: Diet as Tolerated and Low-cholesterol Activity: As tolerated Visit Report/Discharge Packet Instructions: DI for Prescription Opioid Use Discharge Data Primary Care Provider: Osbaldo Cuevas Attending Provider: Brandon Cervantes
[2020-09-04 12:09] VITALS: BP 132/71; PULSE 58; RESP 16; TEMP 36.1; O2SAT 100
--- NOTE | 2020-09-04 12:34 | CM.DANOTE ---
Discharge Planning/Care Management DCP: assessment: case received, EMR reveiwed. Discussed in Team Rounds with Dr. Cervantes who said he anticipated pt would be able to d/c home later today. A d/c order was later noted and met now with pt and is daughter in law Susie (here to take him home). Pt is an 84 year old male who admitted yesterday afternoon to care of hospitalist team. PCP: Dr. Anca Cuevas Payer: Medicare and [employer]. Pt confirms his readiness for home and says he is relieved that the MRI was negative and that his vision lost has resolved. He has new dx of AFIB and will go home with medication changes and clinic followup. P: when all parts of the d/c process are completed. CM Discharge Assessment Start: 09/04/20 12:33 Freq: Status: Active Protocol: Document 09/04/20 12:33 ITV (Rec: 09/04/20 12:34 ITV [id number]) Discharge Planning Assessment Advance Directives? No History Provided By Patient,Medical Record Household Members none Independent with ADL's Yes Is patient alert and oriented? Yes
== END 2020-09-04 13:35 | disposition home or self-care (01) ==
LOC: ED 14:22 → AC 15:26
PROVIDERS: Nurse Practitioner Adult Health; Admitting Provider Internal Medicine; Emergency Provider Nurse Practitioner Family; PCP Student in an Organized Health Care Education/Training Program; Visit Provider Internal Medicine
DX: I48.91 Unspecified atrial fibrillation (principal); H54.61 Unqualified visual loss, right eye, normal vision left eye; I25.2 Old myocardial infarction; E78.5 Hyperlipidemia, unspecified; K21.9 Gastro-esophageal reflux disease without esophagitis; I25.10 Atherosclerotic heart disease of native coronary artery without angina pectoris; I10 Essential (primary) hypertension; G62.9 Polyneuropathy, unspecified; N40.0 Benign prostatic hyperplasia without lower urinary tract symptoms; Z20.822 Contact with and (suspected) exposure to COVID-19
CPT/HCPCS: 36415; 70450; 70548; 70553; 80048; 80061; 80076; 80305; 82962; 83036; 83735; 83880; 84484; 85025; 85610; 85730; 87635; 93005; 93306; 94762; 96360; 96361; 97161; 99284; C9803; G0378; A9270; A9579

== ENCOUNTER → 2020-09-14 09:07 | Outpatient (CLI) | payer MEDICARE, OTHER, SELFPAY ==
[2020-09-03 19:55] VITALS: BMI 31.8
[2020-09-14 10:27] LABS: Add Manual Diff / Slide Review NO; Basophils Absolute Auto 0 /uL (0-100); Basophils Percent Auto 0.4 % (0-2); Eosinophils Absolute Auto 100 /uL (0-450); Eosinophils Percent Auto 2.6 % (2-4); Hematocrit 39.3 % (41-53); Lymphocytes Absolute Auto 900 /uL (1100-4500); Mean Corpuscular HGB Conc 33.2 % (30-36); Mean Corpuscular Hemoglobin 31.7 PG (26-34); Mean Corpuscular Volume 95.7 fL (80-100); Monocytes Absolute Auto 400 /uL (0-900); Monocytes Percent Auto 9.8 % (3-14); Neutrophils Absolute Auto 3100 /uL (1500-7000); Neutrophils Percent Auto 67.2 % (50-75); Platelet Count 145 X10^3/uL (150-400); Red Blood Cell Count 4.11 X10^6/uL (4.5-5.9); Red Cell Distribution Width 13.5 % (11.6-14.8); White Blood Cell Count 4.5 X10^3/uL (4.5-11.0)
[2020-09-14 10:52] LABS: BUN Creatinine Ratio 29.1 (6-22); Blood Urea Nitrogen 25 mg/dL (9-20); Calcium 8.6 mg/dL (8.4-10.2); Carbon Dioxide 28 mmol/L (22-32); Chloride 107 mmol/L (98-107); Cholesterol 116 mg/dL (140-199); Estimated Glomerular Filt Rate > 60.0 mL/min (>60); Glucose 111 mg/dL (80-110); HDL Cholesterol 44 mg/dL (40-60); HEMOLYSIS < 15 (0-50); LDL Cholesterol Calculated 57 mg/dL (<100); Potassium 4.5 mmol/L (3.4-5.1); Sodium 137 mmol/L (137-145); Triglycerides 75 mg/dL (35-150)
== END ==
PROVIDERS: PCP Student in an Organized Health Care Education/Training Program; Referring Provider Internal Medicine Cardiovascular Disease; Visit Provider Internal Medicine Cardiovascular Disease
DX: I25.10 Atherosclerotic heart disease of native coronary artery without angina pectoris (principal); E78.5 Hyperlipidemia, unspecified
CPT/HCPCS: 36415; 80048; 80061; 85025

== ENCOUNTER 2020-10-20 10:49 | Emergency (ER) | payer MEDICARE, OTHER, SELFPAY ==
[2020-09-03 19:55] VITALS: BMI 31.8
[2020-10-20] VITALS (11 sets, daily range): BP systolic 128–159; BP diastolic 60–93; PULSE 63–87; RESP 17–26; TEMP 36.7; O2SAT 95–99; BMI 30.7
--- NOTE | 2020-10-20 11:01 | DI.RAD.S_ITS ---
PROCEDURE: XR CHEST 1V INDICATIONS: chest pain TECHNIQUE: One view of the chest was acquired. COMPARISON: [facility], CR, XR CHEST 2V, 07/30/2020, 17:30. FINDINGS: Surgical changes and devices: None. Lungs and pleura: Lungs are clear. No pleural effusions or pneumothorax. Mediastinum: Mediastinal contours appear normal. Heart size is enlarged. Bones and chest wall: No suspicious bony lesions. Overlying soft tissues appear unremarkable. IMPRESSION: 1. Cardiomegaly. 2. No acute process. Dictated by: Jerrell Wynne M.D. on 10/20/2020 at 11:22 Approved by: Jerrell Wynne M.D. on 10/20/2020 at 11:22
--- NOTE | 2020-10-20 11:07 | ED_ITS ---
HPI - Chest Pain General Chief Complaint: Chest Pain Stated Complaint: chest pressure/sob x3 days Time Seen by Provider: 10/20/20 10:51 Source: patient Mode of arrival: Ambulatory Limitations: no limitations History of Present Illness HPI narrative: Patient is a 84-year-old male who has history of ME, hypertension recent TIA new diagnosis of atrial fibrillation presenting today with chest pain. He says he received his 2nd COVID vaccine Sizer shot 4 days ago the following day he said it hit him like a truck. He had some chest discomfort. He thought it was acid reflux but it seems to be ongoing for the past 3 days. Daughter states that he called her at 5:00 a.m. stating that he was worried which he has never worried, he was not worried when he lost vision in his right eye and was diagnosed with a TIA/stroke. She brought him into the emergency department for evaluation, he had a Xero patch placed this morning and then he came to the emergency department. Daughter states that she noticed with walking he became extremely diaphoretic and short of breath. He denies this. Although he is slightly diaphoretic now. Currently denying any chest pain. And in fact describes as chest discomfort and still denying that now. MD complaint: chest pain Duration: now resolved Quality: other (Discomfort) Exacerbating factors: exertion Related Data Home Medications Medication Instructions Recorded Confirmed CoQ-10 400 mg PO QPM #0 11/21/16 09/03/20 ascorbic acid (vitamin C) 500 mg PO DAILY #0 11/21/16 09/03/20 tamsulosin [Flomax] 0.8 mg PO QPM #0 11/21/16 08/18/20 [VITAMIN K2] 100 mcg PO QPM #0 03/06/17 09/03/20 alpha lipoic acid 600 mg capsule 600 mg PO BEDTIME 12/11/18 09/03/20 aspirin 81 mg tablet,delayed 81 mg PO BEDTIME 12/11/18 09/03/20 release lisinopril 20 mg tablet 20 mg PO QPM 12/11/18 09/03/20 nitroglycerin 0.4 mg sublingual 0.4 mg SL Q5-15M PRN 12/11/18 09/03/20 tablet solifenacin 10 mg tablet 10 mg PO DAILY 12/11/18 09/03/20 Vitamin D3 1,500 units PO DAILY 12/18/18 09/03/20 metoprolol succinate 25 mg PO DAILY 12/18/18 09/03/20 linaclotide 145 mcg capsule 145 mcg PO DAILY cap 12/24/19 09/03/20 loratadine [Allergy Relief 10 mg PO DAILY 09/03/20 09/03/20 (loratadine)] Previous Rx's Medication Instructions Recorded Parking Permit... #1 ea 06/03/20 gabapentin 600 mg tablet 600 mg PO TID #270 tab 09/03/20 rosuvastatin [Crestor] 5 mg PO DAILY 30 Days #30 tab 09/04/20 doxycycline hyclate 100 mg PO BID #14 cap 10/20/20 Allergies Allergy/AdvReac Type Severity Reaction Status Date / Time No Known Drug Allergies Allergy Verified 10/20/20 10:59 Review of Systems Review of Systems ROS Unobtainable: All systems reviewed & are unremarkable except as noted in HPI and below Constitutional Constitutional: Denies chills, Denies fever(s), Denies lethargy and Denies weakness ENT Ears, Nose, Mouth, and Throat: Denies vertigo Cardiovascular Cardiovascular: Reports chest pain, Denies syncope, Denies rapid heart rate, Denies edema, Reports irregular heart rhythm, Denies leg edema, Denies lighth eadedness, Reports dyspnea on exertion and Denies orthopnea Respiratory Respiratory: Reports dyspnea on exertion Gastrointestinal Gastrointestinal: Denies abdominal pain, Denies change in bowel habits, Denies diarrhea, Denies nausea and Denies vomiting Musculoskeletal Musculoskeletal: Denies back pain and Denies myalgias Integumentary/Breasts Skin/Breast: Denies pruritus, Denies erythema, Denies rash and Denies wounds Neurologic Neurologic: Denies vertigo, Denies syncope and Denies weakness Patient History Medical History Balance problems (02/08/16) Chickenpox Coronary artery disease (2008) Coronary artery disease involving sw[place]om[place] coronary artery of sw[place]ish heart without angina pectoris (02/08/16) Dysphagia (09/04/16) Essential hypertension (02/08/16) Fatigue (08/03/16) Gastroesophageal reflux disease (06/13/16) Headache Hearing loss (2014) History of malignant neoplasm of prostate (04/08/15) Hx of myocardial infarction (Unknown) Hypertension (Unknown) Left foot drop (03/06/17) Lumbar disc disease (2012) Measles Non-allergic rhinitis Peripheral polyneuropathy (03/06/17) Polio (1950) Prostate cancer (2008) Pure hypercholesterolemia (02/08/16) Spinal stenosis of lumbar region (02/08/16) Statin intolerance (02/08/16) Vitamin D deficiency (11/21/16) Surgical History History of prostate surgery (2009) Hx of heart surgery (2008) Hx of hernia repair (Unknown) Status post laminectomy Family History Father No problems noted. Mother Cancer Grandfather No problems noted. Grandmother No problems noted. Grandfather No problems noted. Grandmother Cancer Social History marital status: household members: none Smoking Status: Former smoker second hand exposure: No alcohol intake: current substance use type: does not use Smoking Status: Former smoker alcohol intake frequency: a few times a week Substance Use Type: does not use Exam Initial Vital Signs Initial Vital Signs: Vital Signs Pulse Rate 85 10/20/20 10:56 Blood Pressure 157/70 H 10/20/20 10:56 Pulse Oximetry 98 10/20/20 10:56 GENERAL: Alert pleasant elderly male no acute distress and in [no acute] distress. HEENT: Head atraumatic,EOMI, pupils reactive, face symmetric, [moist] mucous membranes CARDIOVASCULAR: Regular rate and rhythm without murmurs, rubs or gallops. RESPIRATORY: Breath sounds equal bilaterally, no wheezes rales or rhonchi. ABDOMEN: Soft, nontender. Normoactive bowel sounds all 4 quadrants. No guarding or rebound. EXTREMITIES: Normal range of motion, no clubbing or edema. Neurovascularly intact NEUROLOGICAL: Alert and oriented x4.Normal gait and speech. Cranial nerves II through XII grossly intact. SKIN: Warm, dry, no laceration, no petechiae, no rashes or lesions. Course Orders Ordered: ED Orders 10/20/20 13:01 CT angio chest PE protocol Stat Discontinued Medications Furosemide (Furosemide 40 Mg/4 Ml Vial) 20 mg IV NOW ONE Stop: 10/20/20 13:02 Last Admin: 10/20/20 13:09 Dose: 20 mg Documented by: SCANAPO Vital Signs Vital signs: Vital Signs - 8 hr 10/20/20 12:30 10/20/20 12:32 10/20/20 13:00 Pulse Rate 64 67 65 Respiratory Rate 20 20 17 Blood Pressure 135/93 H 135/60 Pulse Oximetry 96 97 97 10/20/20 13:14 10/20/20 13:30 10/20/20 13:33 Pulse Rate 63 70 72 Respiratory Rate 19 19 19 Blood Pressure 151/67 H 141/69 H Pulse Oximetry 98 98 98 MDM - Chest Pain Lab Data Attestation: I reviewed the patient's lab results. Result diagrams: 10/20/20 11:00 10/20/20 11:00 Labs: Lab Results 10/20/20 10/20/20 10/20/20 Range/Units 11:00 11:00 11:00 WBC 5.9 (4.5-11.0) X10^3/uL RBC 4.11 L (4.5-5.9) X10^6/uL Hgb 13.1 L (13.5-17.5) g/dL Hct 39.5 L (41-53) % MCV 96.2 (80-100) fL MCH 31.8 (26-34) PG MCHC 33.0 (30-36) % RDW 13.8 (11.6-14.8) % Plt Count 124 L (150-400) X10^3/uL Neut % (Auto) 72.0 (50-75) % Lymph % (Auto) 12.2 L (25-40) % Boone % (Auto) 12.4 (3-14) % Eos % (Auto) 2.9 (2-4) % Baso % (Auto) 0.5 (0-2) % Neut # (Auto) 4300 (2983-1125) /uL Lymph # (Auto) 700 L (0714-9672) /uL Boone # (Auto) 700 (0-900) /uL Eos # (Auto) 200 (0-450) /uL Baso # (Auto) 0 (0-100) /uL PT 17.8 H (10.1-12.7) SECONDS INR 1.6 H (0.9-1.3) APTT 37 H (26.4-36.2) SECONDS Sodium 138 (137-145) mmol/L Potassium 4.3 (3.4-5.1) mmol/L Chloride 109 H (98-107) mmol/L Carbon Dioxide 22 (22-32) mmol/L BUN 25 H (9-20) mg/dL Creatinine 0.89 (0.66-1.25) mg/dL Estimated GFR > 60.0 (>60) mL/min BUN/Creatinine Ratio 28.1 H (6-22) Glucose 111 H (80-110) mg/dL Calcium 8.6 (8.4-10.2) mg/dL Total Bilirubin 0.5 (0.2-1.3) mg/dL AST 19 (17-59) IU/L ALT 18 (<50) IU/L Alkaline Phosphatase 60 (38-126) U/L Total Creatine Kinase 95 (55-170) U/L CK-MB (CK-2) TNP CK-MB (CK-2) Rel Index TNP Troponin I < 0.012 (0.01-0.034) ng/mL NT-Pro-B Natriuret Pep (<450) pg/mL Total Protein 6.8 (6.3-8.2) g/dL Albumin 3.8 (3.5-5.0) g/dL Globulin 3.0 (1.7-4.1) g/dL Albumin/Globulin Ratio 1.3 (1.0-2.8) Lipase 21 L (23-300) U/L 10/20/20 Range/Units 11:08 WBC (4.5-11.0) X10^3/uL RBC (4.5-5.9) X10^6/uL Hgb (13.5-17.5) g/dL Hct (41-53) % MCV (80-100) fL MCH (26-34) PG MCHC (30-36) % RDW (11.6-14.8) % Plt Count (150-400) X10^3/uL Neut % (Auto) (50-75) % Lymph % (Auto) (25-40) % Bo[place] % (Auto) (3-14) % Eos % (Auto) (2-4) % Baso % (Auto) (0-2) % Neut # (Auto) (6200-6061) /uL Lymph # (Auto) (5851-4749) /uL Boone # (Auto) (0-900) /uL Eos # (Auto) (0-450) /uL Baso # (Auto) (0-100) /uL PT (10.1-12.7) SECONDS INR (0.9-1.3) APTT (26.4-36.2) SECONDS Sodium (137-145) mmol/L Potassium (3.4-5.1) mmol/L Chloride (98-107) mmol/L Carbon Dioxide (22-32) mmol/L BUN (9-20) mg/dL Creatinine (0.66-1.25) mg/dL Estimated GFR (>60) mL/min BUN/Creatinine Ratio (6-22) Glucose (80-110) mg/dL Calcium (8.4-10.2) mg/dL Total Bilirubin (0.2-1.3) mg/dL AST (17-59) IU/L ALT (<50) IU/L Alkaline Phosphatase (38-126) U/L Total Creatine Kinase (55-170) U/L CK-MB (CK-2) CK-MB (CK-2) Rel Index Troponin I (0.01-0.034) ng/mL NT-Pro-B Natriuret Pep 914 H (<450) pg/mL Total Protein (6.3-8.2) g/dL Albumin (3.5-5.0) g/dL Globulin (1.7-4.1) g/dL Albumin/Globulin Ratio (1.0-2.8) Lipase (23-300) U/L Imaging Data Chest x-ray: Radiologist's Impression: PROCEDURE: XR CHEST 1V INDICATIONS: chest pain TECHNIQUE: One view of the chest was acquired. COMPARISON: [facility], , XR CHEST 2V, 07/30/2020, 17:30. FINDINGS: Surgical changes and devices: None. Lungs and pleura: Lungs are clear. No pleural effusions or pneumothorax. Mediastinum: Mediastinal contours appear normal. Heart size is enlarged. Bones and chest wall: No suspicious bony lesions. Overlying soft tissues appear unremarkable. IMPRESSION: 1. Cardiomegaly. 2. No acute process. Dictated by: Jerrell Wynne M.D. on 10/20/2020 at 11:22 Approved by: Jerrell Wynne M.D. on 10/20/2020 at 11:22 CT scan - chest: Radiologist's Impression: PROCEDURE: XR CHEST 1V INDICATIONS: chest pain TECHNIQUE: One view of the chest was acquired. COMPARISON: [facility], , XR CHEST 2V, 07/30/2020, 17:30. FINDINGS: Surgical changes and devices: None. Lungs and pleura: Lungs are clear. No pleural effusions or pneumothorax. Mediastinum: Mediastinal contours appear normal. Heart size is enlarged. Bones and chest wall: No suspicious bony lesions. Overlying soft tissues appear unremarkable. IMPRESSION: 1. Cardiomegaly. 2. No acute process. Dictated by: Jerrell Wynne M.D. on 10/20/2020 at 11:22 Approved by: Jerrell Wynne M.D. on 10/20/2020 at 11:22 ECG Data Attestation: I personally reviewed and interpreted this ECG as follows: Prior ECG tracings: available for review Interpretation: Atrial fibrillation rate [address] changes similar previous EKG MDM Narrative Medical decision making narrative: Does not appear septic. BNP slightly elevated he is given 1 dose of Lasix in the ED. CT shows possible atypical pneumonia. Based on patient's symptoms will treat him with doxycycline and follow up as needed. Patient has had chest discomfort ongoing for the last 3 days with a negative troponin. At time recommend outpatient follow-up. Discharge Plan Departure Patient Disposition: Home Clinical Impression: Atypical pneumonia Instructions: Atypical Pneumonia Activity Restrictions/Additional Instructions: *You have been diagnosed with atypical pneumonia *What to do: At this time her CT scan shows possible atypical pneumonia. With her symptoms of shortness of breath will put you on antibiotics for 1 week *Continue to take medications as directed Doxycycline 100 mg twice a day for 7 days--> SENT TO [facility] IN [place] *Follow up with your primary care provider in 2-3 days *Return to ER if you should have increasing shortness of breath, chest pain, fever, dizziness lb problems confusion or any new, worsening or concerning symptoms Prescriptions: New doxycycline hyclate 100 mg capsule 100 mg PO BID Qty: 14 RF: 0 No Action aspirin [Adult Low Dose Aspirin] 81 mg tablet,delayed release (DR/EC) 81 mg PO BEDTIME RF: 0 lisinopril 20 mg tablet 20 mg PO QPM RF: 0 Vesicare 10 mg tablet 10 mg PO DAILY RF: 0 nitroglycerin 0.4 mg tablet, sublingual 0.4 mg SL Q5-15M PRN (Reason: Chest Pain) RF: 0 alpha lipoic acid 600 mg capsule 600 mg PO BEDTIME RF: 0 tamsulosin [Flomax] 0.4 MG capsule,extended release 24hr 0.8 mg PO QPM Qty: 0 RF: 0 CoQ-10 400 mg PO QPM Qty: 0 RF: 0 ascorbic acid (vitamin C) 500 MG tablet 500 mg PO DAILY Qty: 0 RF: 0 [VITAMIN K2] 100 mcg PO QPM Qty: 0 RF: 0 (DME) Parking Permit... Qty: 1 RF: 0 gabapentin 600 mg tablet 600 mg PO TID Qty: 270 RF: 1 linaclotide 145 mcg capsule 145 mcg PO DAILY RF: 0 metoprolol succinate 25 mg tablet extended release 24 hr 25 mg PO DAILY RF: 0 Vitamin D3 1,500 unit 1,500 units PO DAILY RF: 0 loratadine [Allergy Relief (loratadine)] 10 mg Tablet 10 mg PO DAILY RF: 0 rosuvastatin [Crestor] 5 mg tablet 5 mg PO DAILY 30 Days Qty: 30 RF: 0 Referrals: Osbaldo Cuevas MD [Primary Care Provider] -
--- NOTE | 2020-10-20 11:09 | PC.NURSE ---
pt c/o chest pressure, started 3 days ago. c/o increased sob, obvious sob [facility] had holter monitor placed today.
[2020-10-20 11:10] LABS: Add Manual Diff / Slide Review NO; Basophils Absolute Auto 0 /uL (0-100); Basophils Percent Auto 0.5 % (0-2); Eosinophils Absolute Auto 200 /uL (0-450); Eosinophils Percent Auto 2.9 % (2-4); Hematocrit 39.5 % (41-53); Hemoglobin 13.1 g/dL (13.5-17.5); Lymphocytes Absolute Auto 700 /uL (1100-4500); Lymphocytes Percent Auto 12.2 % (25-40); Mean Corpuscular Hemoglobin 31.8 PG (26-34); Mean Corpuscular Volume 96.2 fL (80-100); Monocytes Absolute Auto 700 /uL (0-900); Monocytes Percent Auto 12.4 % (3-14); Neutrophils Absolute Auto 4300 /uL (1500-7000); Platelet Count 124 X10^3/uL (150-400); Red Blood Cell Count 4.11 X10^6/uL (4.5-5.9); Red Cell Distribution Width 13.8 % (11.6-14.8); White Blood Cell Count 5.9 X10^3/uL (4.5-11.0)
[2020-10-20 11:16] LABS: INR 1.6 (0.9-1.3); Prothrombin Time 17.8 SECONDS (10.1-12.7)
[2020-10-20 11:18] LABS: PTT Partial Thromboplastin Tim 37 SECONDS (26.4-36.2)
[2020-10-20 11:21] LABS: Alanine Aminotransferase 18 IU/L (<50); Albumin 3.8 g/dL (3.5-5.0); Albumin Globulin Ratio 1.3 (1.0-2.8); Alkaline Phosphatase 60 U/L (38-126); Aspartate Aminotransferase 19 IU/L (17-59); BUN Creatinine Ratio 28.1 (6-22); Bilirubin Total 0.5 mg/dL (0.2-1.3); Blood Urea Nitrogen 25 mg/dL (9-20); Calcium 8.6 mg/dL (8.4-10.2); Carbon Dioxide 22 mmol/L (22-32); Chloride 109 mmol/L (98-107); Creatine Kinase 95 U/L (55-170); Estimated Glomerular Filt Rate > 60.0 mL/min (>60); Glucose 111 mg/dL (80-110); HEMOLYSIS < 15 (0-50); Lipase 21 U/L (23-300); Potassium 4.3 mmol/L (3.4-5.1); Sodium 138 mmol/L (137-145); Total Protein 6.8 g/dL (6.3-8.2)
[2020-10-20 11:31] LABS: Troponin I < 0.012 ng/mL (0.01-0.034)
[2020-10-20 12:26] LABS: NT-proBNP (BNP-Adult 18+) 914 pg/mL (<450)
--- NOTE | 2020-10-20 13:01 | DI.CT.S_ITS ---
PROCEDURE: CT ANGIO CHEST PE PROTOCOL INDICATIONS: sob hypoxia TECHNIQUE: After the administration of intravenous contrast, 2 mm thick sections acquired from the pulmonary apices to the posterior costophrenic angles. 3-dimensional maximum intensity projection (MIP) coronal and sagittal reformats were then acquired through the thorax. For radiation dose reduction, the following was used: automated exposure control, adjustment of mA and/or kV according to patient size. COMPARISON: None. FINDINGS: Image quality: Excellent. Pulmonary arteries: Pulmonary arteries are normal in size, and demonstrate no intraluminal filling defects to suggest central pulmonary embolism. Lungs and pleura: There is mild diffuse ground-glass pulmonary opacity. Mild bibasilar scarring versus atelectasis is present. No pleural effusions or pneumothorax. Central and peripheral airways are patent. Mediastinum: Heart size is normal, without pericardial effusion. Moderate atherosclerotic calcification of the coronary vasculature. Pericardial calcifications are present. No mediastinal or hilar adenopathy. Calcified subcarinal and left hilar lymph nodes are present. Thoracic aorta is normal in caliber and enhancement. Esophagus is normal in caliber, without hiatal hernia. Bones and chest wall: No suspicious bony lesions. Ribs and thoracic spine appear intact throughout. Thyroid gland is within normal limits. No axillary or supraclavicular adenopathy. Abdomen: Visualized portions of the upper abdomen demonstrate layering high density material in the gallbladder lumen, as well as pancreatic atrophy. IMPRESSION: 1. Mild diffuse ground-glass pulmonary opacity, consistent with atypical pneumonia. 2. No pulmonary embolus. 3. Coronary artery disease. 4. Pericardial calcifications, consistent with remote pericardial hemorrhage versus infection versus inflammation. 5. Cholelithiasis versus gallbladder sludge. 6. Remote granulomatous disease. Dictated by: Jerrell Wynne M.D. on 10/20/2020 at 13:28 Approved by: Jerrell Wynne M.D. on 10/20/2020 at 13:31
[2020-10-20] MEDS: FUROSEMIDE 40 MG/4 ML VIAL 20 MG IV (13:09)
== END 2020-10-20 14:00 | disposition home or self-care (01) ==
PROVIDERS: Emergency Provider Emergency Medicine; PCP Student in an Organized Health Care Education/Training Program
DX: J18.9 Pneumonia, unspecified organism (principal); R07.9 Chest pain, unspecified; I10 Essential (primary) hypertension; I48.91 Unspecified atrial fibrillation; Z86.73 Personal history of transient ischemic attack (TIA), and cerebral infarction without residual deficits
CPT/HCPCS: 36415; 71045; 71275; 80053; 82550; 83690; 83880; 84484; 85025; 85610; 85730; 93005; 96374; 99283; 99284; J1940; Q9967

== ENCOUNTER → 2021-01-15 11:19 | Outpatient (CLI) | payer MEDICARE, OTHER, SELFPAY ==
[2020-09-03 19:55] VITALS: BMI 31.8
[2021-01-15 12:50] LABS: COVID19 -Nasal RAPID Negative (Negative)
== END ==
PROVIDERS: PCP Student in an Organized Health Care Education/Training Program; Referring Provider Physician Assistant; Visit Provider Physician Assistant
DX: Z01.812 Encounter for preprocedural laboratory examination (principal); Z20.822 Contact with and (suspected) exposure to COVID-19
CPT/HCPCS: 87635; C9803

== ENCOUNTER → 2021-01-17 10:34 | Outpatient (CLI) | payer MEDICARE, OTHER, SELFPAY ==
[2020-09-03 19:55] VITALS: BMI 31.8
--- NOTE | 2021-01-17 | DI.NM.S_ITS ---
PROCEDURE: NM SHARON PERF SPECT R&S PHARM Rest and pharmacological stress myocardial perfusion SPECT with gated imaging and ejection fraction RADIOPHARMACEUTICAL: 12.4 mCi Tc-99m tetrafosmin IV at rest and 25.5 mCi Tc-99m tetrafosmin IV at peak effect of pharmacological stress. [id number] was performed. INDICATIONS: Atherosclerotic heart disease TECHNIQUE: Radiopharmaceutical was injected at peak stress test, and also at rest. SPECT images were obtained. SPECT myocardial perfusion images were displayed in short axis, horizontal long axis, and vertical long axis views. Gated images were reviewed using [employer] software. COMPARISON: None. CARDIAC STRESS: A pharmacologic stress test was performed under the supervision of an attending staff, using an infusion of lexiscan 0.4mg IV X1. Hemodynamic data: There is normal blood pressure and heart rate response to pharmacologic stress. Symptoms: The patient denied anginal chest pain. Aminophylline: none EKG: Resting ECG shows atrial fibrillation with non-specific ST-T changes. No diagnostic changes of ischemia with lexiscan. FINDINGS: Raw data: There is good myocardial uptake of radiotracer. No significant motion artifacts. Fprg-co-elupw ratio is 0.29 (normal is less than 0.38 for tetrafosmin tracer). Left ventricle function: Gated images demonstrate inferior wall hypokinesis. No transient ischemic dilation; TID is 1.18 (normal less than 1.3). Left ventricle resting end diastolic volume is 102 mL. Left ventricle stress ejection fraction is 55% ; normal range is above 45%. Myocardial perfusion: There is fixed moderately intense basal to mid inferior wall defect and fixed apical septal defect consistent with prior infarction and no significant eun-infarct ischemia. Patient unable to prone. IMPRESSION: Abnormal pharmaceutical nuclear stress test consistent with prior infarction. No significant ischemia. 1) There is fixed moderately intense basal to mid inferior wall defect and fixed apical septal defect consistent with prior infarction and no significant eun-infarct ischemia. 2) Normal left ventricular size and systolic function (EF post stress 55%). Inferior wall is mildly hypokinetic. 3) No ECG evidence of ischemia. 4) No angina during the study. 5) Compared to the nuclear stress test done 02/03/2019, no significant change. Dictated by: Agustina Stephens MD on 01/17/2021 at 17:22 Approved by: Agustina Stephens MD on 01/17/2021 at 17:26
--- NOTE | 2021-01-17 15:13 | PM.TREADMILL ---
Cardiac Stress Test Report Referral & Results Date Patient Seen: 01/17/21 Time Patient Seen: 15:13 Requesting provider: Agustina Stephens Indication: Atherosclerotic heart disease Rest ECG: Atrial fibrillation with a controlled ventricular rate Procedure Note: After Lexiscan injection, had minimal dyspnea and no chest pain No significant ST changes after Lexiscan injection Rare PVC and couplets Impression: Normal Lexiscan stress test Nuclear images pending Please note: Actual ECG tracings can be found in the PACS system.
== END ==
PROVIDERS: PCP Student in an Organized Health Care Education/Training Program; Referring Provider Internal Medicine Cardiovascular Disease; Visit Provider Internal Medicine Cardiovascular Disease
DX: I25.10 Atherosclerotic heart disease of native coronary artery without angina pectoris (principal); R94.39 Abnormal result of other cardiovascular function study
CPT/HCPCS: 78452; 93017; A9502; J2785

== ENCOUNTER → 2021-01-21 11:13 | Outpatient (CLI) | payer MEDICARE, OTHER, SELFPAY ==
[2020-09-03 19:55] VITALS: BMI 31.8
[2021-01-29 10:19] LABS: Vitamin B6 13.3 ug/L (5.3-46.7)
== END ==
PROVIDERS: PCP Student in an Organized Health Care Education/Training Program; Referring Provider Psychiatry & Neurology Neurology; Visit Provider Psychiatry & Neurology Neurology
DX: G60.8 Other hereditary and idiopathic neuropathies (principal); R20.2 Paresthesia of skin; E56.9 Vitamin deficiency, unspecified
CPT/HCPCS: 36415; 84207

== ENCOUNTER 2021-01-26 04:56 | Observation (INO) | payer MEDICARE, OTHER, SELFPAY ==
[2020-09-03 19:55] VITALS: BMI 31.8
[2021-01-26] VITALS (19 sets, daily range): BP systolic 103–160; BP diastolic 52–89; PULSE 58–78; RESP 13–24; TEMP 36.1–37.1; O2SAT 94–97; BMI 30.2
--- NOTE | 2021-01-26 05:03 | DI.RAD.S_ITS ---
PROCEDURE: XR CHEST 1V INDICATIONS: chest pain TECHNIQUE: One view of the chest was acquired. COMPARISON: [facility], CT, CT ANGIO CHEST PE PROTOCOL, 10/20/2020, 13:03. [facility], CR, XR CHEST 1V, 10/20/2020, 11:14. FINDINGS: Surgical changes and devices: None. Lungs and pleura: Lungs are clear. No pleural effusions or pneumothorax. Mediastinum: Mediastinal contours appear unchanged. Heart size appears prominent. Bones and chest wall: No suspicious bony lesions. Overlying soft tissues appear unremarkable. IMPRESSION: No acute cardiopulmonary abnormality. Cardiomegaly. This report is concordant with the overnight preliminary interpretation. Dictated by: David Hall M.D. on 01/26/2021 at 7:36 Approved by: David Hall M.D. on 01/26/2021 at 7:37
[2021-01-26 05:09] LABS: Add Manual Diff / Slide Review NO; Basophils Absolute Auto 0 /uL (0-100); Basophils Percent Auto 0.4 % (0-2); Eosinophils Absolute Auto 100 /uL (0-450); Eosinophils Percent Auto 1.8 % (2-4); Hematocrit 41.9 % (41-53); Lymphocytes Absolute Auto 1500 /uL (1100-4500); Lymphocytes Percent Auto 25.2 % (25-40); Mean Corpuscular HGB Conc 33.3 % (30-36); Mean Corpuscular Hemoglobin 32.2 PG (26-34); Mean Corpuscular Volume 96.8 fL (80-100); Monocytes Absolute Auto 600 /uL (0-900); Monocytes Percent Auto 10.9 % (3-14); Neutrophils Absolute Auto 3600 /uL (1500-7000); Neutrophils Percent Auto 61.7 % (50-75); Platelet Count 158 X10^3/uL (150-400); Red Blood Cell Count 4.33 X10^6/uL (4.5-5.9); Red Cell Distribution Width 13.7 % (11.6-14.8); White Blood Cell Count 5.8 X10^3/uL (4.5-11.0)
[2021-01-26] MEDS: SODIUM CHLORIDE 0.9% 1,000 ML 150 ML IV (05:12)
[2021-01-26 05:16] LABS: Alanine Aminotransferase 18 IU/L (<50); Albumin 3.8 g/dL (3.5-5.0); Albumin Globulin Ratio 1.2 (1.0-2.8); Alkaline Phosphatase 59 U/L (38-126); Aspartate Aminotransferase 22 IU/L (17-59); BUN Creatinine Ratio 26.1 (6-22); Bilirubin Total 0.3 mg/dL (0.2-1.3); Blood Urea Nitrogen 23 mg/dL (9-20); Calcium 9.7 mg/dL (8.4-10.2); Carbon Dioxide 22 mmol/L (22-32); Chloride 109 mmol/L (98-107); Creatine Kinase 99 U/L (55-170); Estimated Glomerular Filt Rate > 60.0 mL/min (>60); Globulin 3.1 g/dL (1.7-4.1); Glucose 124 mg/dL (80-110); HEMOLYSIS < 15 (0-50); Lipase 23 U/L (23-300); Potassium 4.5 mmol/L (3.4-5.1); Sodium 138 mmol/L (137-145); Total Protein 6.9 g/dL (6.3-8.2)
[2021-01-26 05:27] LABS: Troponin I < 0.012 ng/mL (0.01-0.034)
--- NOTE | 2021-01-26 05:39 | ED.CHESTPAIN ---
HPI - Chest Pain General Chief Complaint: Chest Pain Stated Complaint: Chest pain Time Seen by Provider: 01/26/21 05:03 Source: patient and EMS Mode of arrival: EMS Limitations: no limitations History of Present Illness HPI narrative: 85-year-old male Former smoker with history of coronary artery disease, prior NM, hypertension, hyperlipidemia, AFib, a flutter on Eliquis presents with a chief complaint of some vague of retrosternal chest pressure that was present for period of time during the day yesterday any thinks it resolved prior to going to sleep. He denies any obvious provocation, palliation or radiation of this discomfort. He denies any fever, chills nor nausea or vomiting. He does state that he has been increasingly fatigued over the past few days if not weeks and in fact had a stress test just a few days ago that was routine, and in the aftermath of a TIA workup that he about a month ago. His stress test showed evidence of prior NM but is unchanged from his most recent stress test in 2019. He went to bed and woke up at about 4:00 a.m. this morning and upon going to urinate became profoundly diaphoretic and short of breath, at that point he called EMS for evaluation. He is not currently having any chest pain or pressure MD complaint: chest pain Onset (ago): hour(s) Duration: intermittent Onset: during rest Pain location: substernal Severity: moderate Quality: tightness and aching Pain radiation: none Relieving factors: nothing Exacerbating factors: nothing Associated symptoms: diaphoresis and dyspnea Treatments prior to arrival chest pain: none Related Data Home Medications Medication Instructions Recorded Confirmed CoQ-10 400 mg PO QPM #0 11/21/16 01/26/21 ascorbic acid (vitamin C) 500 mg PO DAILY #0 11/21/16 01/26/21 tamsulosin [Flomax] 0.8 mg PO QPM #0 11/21/16 01/26/21 [VITAMIN K2] 100 mcg PO QPM #0 03/06/17 01/26/21 alpha lipoic acid 600 mg capsule 600 mg PO BEDTIME 12/11/18 01/26/21 lisinopril 20 mg tablet 20 mg PO QPM 12/11/18 01/26/21 solifenacin 10 mg tablet 10 mg PO DAILY 12/11/18 12/23/20 Vitamin D3 1,500 units PO DAILY 12/18/18 01/26/21 metoprolol succinate 25 mg PO DAILY 12/18/18 01/26/21 linaclotide 145 mcg capsule 145 mcg PO DAILY cap 12/24/19 12/23/20 loratadine [Allergy Relief 10 mg PO DAILY 09/03/20 01/26/21 (loratadine)] apixaban 5 mg tablet 5 mg PO BID 10/26/20 01/26/21 Previous Rx's Medication Instructions Recorded rosuvastatin [Crestor] 5 mg PO DAILY 30 Days #30 tab 09/04/20 aspirin 81 mg PO DAILY #30 tab 01/27/21 nitroglycerin 0.4 mg sublingual 0.4 mg SL Q5-15M PRN #20 tab 01/27/21 tablet Allergies Allergy/AdvReac Type Severity Reaction Status Date / Time No Known Drug Allergies Allergy Verified 12/23/20 14:18 Review of Systems Constitutional Constitutional: Denies chills, Denies fatigue, Denies fever(s), Denies frequent falls, Denies lethargy and Denies weakness Eyes Eyes: Denies change in vision, Denies eye discharge, Denies irritation and Denies loss of vision ENT Ears, Nose, Mouth, and Throat: Denies change in voice, Denies dizziness, Denies neck pain, Denies sore throat and Denies throat swelling Cardiovascular Cardiovascular: Reports chest pain, Reports diaphoresis, Denies irregular heart rhythm, Denies lightheadedness, Denies palpitations, Reports dyspnea, Denies dyspnea on exertion and Denies orthopnea Respiratory Respiratory: Denies cough, Reports dyspnea, Denies dyspnea on exertion and Denies wheezing Gastrointestinal Gastrointestinal: Denies abdominal pain, Denies change in bowel habits, Denies diarrhea, Denies nausea and Denies vomiting Musculoskeletal Musculoskeletal: Denies neck pain and Denies numbness Integumentary/Breasts Skin/Breast: Denies pruritus, Denies erythema, Denies rash and Denies wounds Neurologic Neurologic: Denies behavioral changes, Denies confusion, Denies dizziness, Denies frequent falls, Denies loss of vision, Denies numbness and Denies weakness Psychiatric Psychiatric: Denies anxiety, Denies behavioral changes, Denies confusion, Denies depression, Denies homicidal ideation and Denies suicidal ideation Endocrine Endocrine: Denies fatigue, Denies flushing and Denies palpitations Hematologic/Lymphatic Hematologic/Lymphatic: Denies easy bruising Allergic/Immunologic Allergic/Immunologic: Denies urticaria, Denies throat swelling and Denies wheezing Patient History Medical History Balance problems (02/08/16) Chickenpox Coronary artery disease (2008) Coronary artery disease involving [place] coronary artery of [place] heart without angina pectoris (02/08/16) Dysphagia (09/04/16) Essential hypertension (02/08/16) Fatigue (08/03/16) Gastroesophageal reflux disease (06/13/16) Headache Hearing loss (2014) History of malignant neoplasm of prostate (04/08/15) Hx of myocardial infarction (Unknown) Hypertension (Unknown) Left foot drop (03/06/17) Lumbar disc disease (2012) Measles Non-allergic rhinitis Peripheral polyneuropathy (03/06/17) Polio (1950) Prostate cancer (2008) Pure hypercholesterolemia (02/08/16) Spinal stenosis of lumbar region (02/08/16) Statin intolerance (02/08/16) Vitamin D deficiency (11/21/16) Surgical History History of prostate surgery (2009) Hx of heart surgery (2008) Hx of hernia repair (Unknown) Status post laminectomy Family History Father No problems noted. Mother Cancer Grandfather No problems noted. Grandmother No problems noted. Grandfather No problems noted. Grandmother Cancer Family/Other Stroke Heart attack Coronary artery disease Congestive heart failure Social History marital status: household members: none Smoking Status: Former smoker second hand exposure: No alcohol intake: current substance use type: does not use Smoking Status: Former smoker alcohol intake frequency: a few times a week Substance Use Type: does not use Exam Narrative Exam Narrative: GENERAL: [85] year old patient appears stated age. Well-nourished, well-developed patient, in mild distress. HEAD: Atraumatic. Normocephalic. EYES: Pupils equal round and reactive. Extraocular motions intact. No scleral icterus. No injection or drainage. ENT: Nose without bleeding, purulent drainage. Throat without erythema, tonsillar hypertrophy or exudate. Airway patent. NECK: Trachea midline. Non tender CARDIOVASCULAR: Regular rate and rhythm without murmurs, gallops, or rubs. RESPIRATORY: Clear to auscultation. Breath sounds equal bilaterally. No wheezes, rales, or rhonchi. GASTROINTESTINAL: Abdomen soft, non-tender, nondistended. EXTREMITIES: No edema or joint tenderness. BACK: Nontender without deformity or crepitance. No flank tenderness. NEURO: AOx3. SKIN: No rash or erythema of visible areas, mild diaphoresis Initial Vital Signs Initial Vital Signs: Vital Signs Temperature 98.7 F 01/26/21 05:10 Pulse Rate 78 01/26/21 05:10 Respiratory Rate 17 01/26/21 05:10 Blood Pressure 156/76 H 01/26/21 05:10 Pulse Oximetry 96 01/26/21 05:10 Course Course Course Narrative: discussed with palaeontologist cardiology. Last stent in 2008, last cath in 2013. Though recently had stress test, recommend admission, echo/stress test. Orders Ordered: Discontinued Medications Acetaminophen (Acetaminophen 325 Mg Tablet) 650 mg PO Q6HR PRN PRN Reason: Fever/Mild Pain (1-3) Al Hydrox/Mg Hydrox/Simethicone (Mag Hydrox/Alum/Simeth 30 Ml Udc) 30 ml PO Q6HR PRN PRN Reason: Dyspepsia Last Admin: 01/26/21 22:13 Dose: 30 ml Documented by: MARCOS Apixaban (Apixaban 5 Mg Tablet) 5 mg PO BID [facility] Last Admin: 01/27/21 08:55 Dose: 5 mg Documented by: Admin: 01/26/21 22:13 Dose: 5 mg Documented by: MARCOS Aspirin (Aspirin 81 Mg Chew Tab) 324 mg PO NOW ONE Stop: 01/26/21 05:04 Last Admin: 01/26/21 05:29 Dose: Not Given Documented by: DIAMOND Aspirin (Aspirin Ec 81 Mg Tablet) 81 mg PO DAILY [facility] Last Admin: 01/27/21 08:55 Dose: 81 mg Documented by: DEE Atorvastatin Calcium (Atorvastatin 20 Mg Tablet) 10 mg PO DAILY [facility] Last Admin: 01/27/21 08:56 Dose: Not Given Documented by: DEE Sodium Chloride (Normal Saline 0.9%) 1,000 mls @ 150 mls/hr IV CONT [facility] Stop: 01/26/21 09:39 Last Infusion: 01/26/21 09:56 Dose: 0 mls/hr Documented by: Admin: 01/26/21 05:12 Dose: 150 mls/hr Documented by: SENIA Influenza Virus Vaccine (Influenza Hd Vaccine 0.7 Ml Syringe) 0.7 ml IM .ONCE ONE Stop: 01/26/21 09:24 Last Admin: 01/26/21 11:00 Dose: Not Given Documented by: VALDEMAR Influenza Virus Vaccine (Influenza Vaccine 0.5 Ml Syringe) 0.5 ml IM .ONCE ONE Stop: 01/26/21 11:01 Last Admin: 01/26/21 11:02 Dose: 0.5 ml Documented by: VALDEMAR Lisinopril (Lisinopril 20 Mg Tablet) 20 mg PO QPM [facility] Last Admin: 01/26/21 17:05 Dose: 20 mg Documented by: HAVEN Metoprolol Succinate (Metoprolol Er 25 Mg Tablet) 25 mg PO DAILY [facility] Last Admin: 01/27/21 08:55 Dose: 25 mg Documented by: Admin: 01/26/21 11:03 Dose: Not Given Documented by: VALDEMAR Naloxone HCl (Naloxone 0.4 Mg/Ml Vial) 0.2 mg IV Q2MIN PRN PRN Reason: Opiate Reversal Nitroglycerin (Nitroglycerin 0.4 Mg Sl Tab) 0.4 mg SL [id number] PRN PRN Reason: Chest Pain Sodium Chloride (Sodium Chloride 0.9% Flush) 10 ml IV PRN PRN PRN Reason: Flush Sodium Chloride (Sodium Chloride 0.9% Flush) 10 ml IV BID [facility] Last Admin: 01/27/21 08:55 Dose: 10 ml Documented by: DEE Solifenacin (Solifenacin 5 Mg Tablet) 10 mg PO DAILY [facility] Last Admin: 01/27/21 08:55 Dose: 10 mg Documented by: DEE Tamsulosin HCl (Tamsulosin 0.4 Mg Capsule) 0.8 mg PO QPM [facility] Last Admin: 01/26/21 17:05 Dose: 0.8 mg Documented by: HAVEN Vital Signs Vital signs: Vital Signs - 8 hr 06/02/21 05:10 01/26/21 05:51 Temperature 98.7 F Pulse Rate 78 71 Respiratory Rate 17 Blood Pressure 156/76 H 142/89 H Pulse Oximetry 96 97 MDM - Chest Pain Lab Data Result diagrams: 01/26/21 05:06 01/26/21 05:06 Labs: Lab Results 01/26/21 01/26/21 01/26/21 Range/Units 05:06 05:06 05:20 WBC 5.8 (4.5-11.0) X10^3/uL RBC 4.33 L (4.5-5.9) X10^6/uL Hgb 14.0 (13.5-17.5) g/dL Hct 41.9 (41-53) % MCV 96.8 (80-100) fL MCH 32.2 (26-34) PG MCHC 33.3 (30-36) % RDW 13.7 (11.6-14.8) % Plt Count 158 (150-400) X10^3/uL Neut % (Auto) 61.7 (50-75) % Lymph % (Auto) 25.2 (25-40) % [place] % (Auto) 10.9 (3-14) % Eos % (Auto) 1.8 L (2-4) % Baso % (Auto) 0.4 (0-2) % Neut # (Auto) 3600 (4102-7939) /uL Lymph # (Auto) 1500 (8060-9279) /uL [place] # (Auto) 600 (0-900) /uL Eos # (Auto) 100 (0-450) /uL Baso # (Auto) 0 (0-100) /uL Sodium 138 (137-145) mmol/L Potassium 4.5 (3.4-5.1) mmol/L Chloride 109 H (98-107) mmol/L Carbon Dioxide 22 (22-32) mmol/L BUN 23 H (9-20) mg/dL Creatinine 0.88 (0.66-1.25) mg/dL Estimated GFR > 60.0 (>60) mL/min BUN/Creatinine Ratio 26.1 H (6-22) Glucose 124 H (80-110) mg/dL Calcium 9.7 (8.4-10.2) mg/dL Total Bilirubin 0.3 (0.2-1.3) mg/dL AST 22 (17-59) IU/L ALT 18 (<50) IU/L Alkaline Phosphatase 59 (38-126) U/L Total Creatine Kinase 99 (55-170) U/L CK-MB (CK-2) TNP CK-MB (CK-2) Rel Index TNP Troponin I < 0.012 (0.01-0.034) ng/mL Total Protein 6.9 (6.3-8.2) g/dL Albumin 3.8 (3.5-5.0) g/dL Globulin 3.1 (1.7-4.1) g/dL Albumin/Globulin Ratio 1.2 (1.0-2.8) Lipase 23 (23-300) U/L SARS-CoV-2 (PCR) Negative (Negative) ECG Data Interpretation: Atrial fibrillation, rate in the 70s, no ST segmental elevation or depression, no hyperacute T-waves or inverted T-waves, no other ectopy. Discharge Plan Departure Patient Disposition: Admitted as Observation Clinical Impression: Chest pain Qualifiers: Chest pain type: unspecified Qualified Code(s): R07.9 - Chest pain, unspecified Admit Date/Time: 01/26/21 07:55 Admit Provider: Fabian Rice
[2021-01-26 06:23] LABS: COVID19 - ADMIT (NP swab/PCR) Negative (Negative)
--- NOTE | 2021-01-26 10:10 | PC.NURSE ---
Addendum entered by Lena Rodriguez R.N. 01/26/21 12:10: requested ammunition officer, Osbaldo, to obtain requested records from income tax adjuster, DR. BURKETT Addendum entered by Lena Rodriguez R.N. 01/26/21 11:10: PT WITH UNEXPECTED EMESIS X 2 EPISODES- HE WAS HAVING SNACK AND SIPS OF H20 BUT SAID IT JUST WOULDN'T GO DOWN DENIES PRECURSOR OF NAUSEA REMAINS AFIB/FLUTTER AND OF NOTE DURING OR JUST AFTER EPISODE HR DIPPED TO MID 40'S, FLU VACCINE GIVEN AND IV SALINE LOCKED PER MD ORDER Original Note: pt admitted to room 228 with c/o of chest pain that had resolved in ED or just prior, he reports taking a ntg pill the evening prior but did not notice any changes in discomfort - ( mid sternal non radiating) lungs dim but clear no noted edema- does have extensive medical hx and presents in afib/flutter rate 70-80's
[2021-01-26] MEDS: INFLUENZA VACCINE 0.5 ML SYRINGE IM (11:02)
--- NOTE | 2021-01-26 13:01 | PM.HP.1 ---
History of Present Illness History of Present Illness Date Patient Seen: 01/26/21 Time Patient Seen: 09:00 Date of Onset of Symptoms: 01/25/21 Chief complaint: Chest pain Narrative: Patient is an 85-year-old male with history of coronary artery disease, IN, status post coronary stenting in 2008, recently diagnosis atrial fibrillation presented with complaints of chest pain and diaphoresis. Patient states that yesterday afternoon he noticed onset of persistent retrosternal chest discomfort. The chest pain lasted to the evening until he went to bed. It was nonpleuritic. He woke up at about 4:00 a.m. to P and became profusely diaphoretic and weak on returning to bed. Patient sees for cardiology. He has history of IN in 2008 and had coronary stenting x5 in [place]. Last echo was on September 03, 2020 which showed normal LV size, EF 55-60%, mild concentric LVH, mild MR/AR. He had a gabriel altered perfusion stress test very recently on 01/17/2021 which showed fixed basal to mid inferior wall defects and fixed apical septal defect consistent with old IN, LV size and EF 4 normal, no change versus stress test on 02/03/2019. Patient states he was recently diagnosed with atrial fibrillation and started on apixaban and taken off of his low-dose aspirin. On ER evaluation he was mildly hypertensive with heart rate in the 70s in AFib and O2 sat 95% room air. EKG showed atrial fibrillation with controlled VR and nonspecific T-wave abnormality. Initial troponin was normal. Other labs were unremarkable. Chest x-ray indicated prominent heart size but otherwise normal. Patient History Medical History Balance problems (02/08/16) Chickenpox Coronary artery disease (2008) Coronary artery disease involving [place] coronary artery of [place] heart without angina pectoris (02/08/16) Dysphagia (09/04/16) Essential hypertension (02/08/16) Fatigue (08/03/16) Gastroesophageal reflux disease (06/13/16) Headache Hearing loss (2014) History of malignant neoplasm of prostate (04/08/15) Hx of myocardial infarction (Unknown) Hypertension (Unknown) Left foot drop (03/06/17) Lumbar disc disease (2012) Measles Non-allergic rhinitis Peripheral polyneuropathy (03/06/17) Polio (1950) Prostate cancer (2009) Pure hypercholesterolemia (02/08/16) Spinal stenosis of lumbar region (02/08/16) Statin intolerance (02/08/16) Vitamin D deficiency (11/21/16) Surgical History History of prostate surgery (2009) Hx of heart surgery (2008) Hx of hernia repair (Unknown) Status post laminectomy Family & Social History Family History Father No problems noted. Mother Cancer Grandfather No problems noted. Grandmother No problems noted. Grandfather No problems noted. Grandmother Cancer Family/Other Stroke Heart attack Coronary artery disease Congestive heart failure Social History: household members none Prior Living Arrangements House Safety & Behavioral: Feels Safe in Current Yes Environment Suicidal Ideation Description None Suicide Plan Description No Plan Tobacco & Substance use: Tobacco type cigarettes Smoking Status Former smoker alcohol intake current alcohol intake frequency a few times a week Substance Use Type does not use Meds Home Medications and Allergies Home Medications Medication Instructions Recorded Confirmed Type CoQ-10 400 mg PO QPM #0 11/21/16 01/26/21 History ascorbic acid (vitamin C) 500 mg PO DAILY #0 11/21/16 01/26/21 History tamsulosin [Flomax] 0.8 mg PO QPM #0 11/21/16 01/26/21 History [VITAMIN K2] 100 mcg PO QPM #0 03/06/17 01/26/21 History alpha lipoic acid 600 mg capsule 600 mg PO BEDTIME 12/11/18 01/26/21 History lisinopril 20 mg tablet 20 mg PO QPM 12/11/18 01/26/21 History nitroglycerin 0.4 mg sublingual 0.4 mg SL Q5-15M PRN 12/11/18 01/26/21 History tablet solifenacin 10 mg tablet 10 mg PO DAILY 12/11/18 12/23/20 History Vitamin D3 1,500 units PO DAILY 12/18/18 01/26/21 History metoprolol succinate 25 mg PO DAILY 12/18/18 01/26/21 History linaclotide 145 mcg capsule 145 mcg PO DAILY cap 12/24/19 12/23/20 History loratadine [Allergy Relief 10 mg PO DAILY 09/03/20 01/26/21 History (loratadine)] rosuvastatin [Crestor] 5 mg PO DAILY 30 Days #30 tab 09/04/20 01/26/21 Rx apixaban 5 mg tablet 5 mg PO BID 10/26/20 01/26/21 History Allergies Allergy/AdvReac Type Severity Reaction Status Date / Time No Known Drug Allergies Allergy Verified 12/23/20 14:18 Review of Systems Review of Systems ROS: Yes All systems reviewed with the patient and are negative except as otherwise documented Exam Vital Signs (past 8 hours): - 01/26/21 05:10 01/26/21 05:51 01/26/21 05:54 Temperature 98.7 F Pulse Rate 78 71 69 Respiratory Rate 17 24 Blood Pressure 156/76 H 142/89 H Pulse Oximetry 96 97 97 01/26/21 06:00 01/26/21 06:01 01/26/21 06:30 Temperature Pulse Rate 70 66 66 Respiratory Rate 17 20 Blood Pressure 147/65 H Pulse Oximetry 97 97 96 01/26/21 06:31 01/26/21 07:00 01/26/21 07:01 Temperature Pulse Rate 67 67 65 Respiratory Rate Blood Pressure 114/57 L 155/65 H Pulse Oximetry 96 96 96 01/26/21 07:30 01/26/21 08:00 01/26/21 08:01 Temperature Pulse Rate 67 67 69 Respiratory Rate 13 18 20 Blood Pressure 139/65 125/70 Pulse Oximetry 97 97 97 01/26/21 09:53 Temperature Pulse Rate 63 Respiratory Rate 18 Blood Pressure 147/76 H Pulse Oximetry 95 Oxygen Delivery Method Room Air Oxygen Flow Rate 0 Narrative Exam Narrative: General: Alert well-developed well-nourished male in no acute distress HEENT: Nontraumatic, pupils equal and reactive Neck: No JVD, no lymphadenopathy Lungs: Clear to auscultation Heart: Normal S1 and S2, irregularly irregular rhythm, no murmur Abdomen: Soft, nontender, no HSM Extremities: Nonedematous Neurological: A&O x3, speech fluent, affect normal, no focal weakness Objective Labs Result Diagrams: 01/26/21 05:06 01/26/21 05:06 Labs: Laboratory Results - last 24 hr 01/26/21 01/26/21 01/26/21 05:06 05:06 05:20 WBC 5.8 RBC 4.33 L Hgb 14.0 Hct 41.9 MCV 96.8 MCH 32.2 MCHC 33.3 RDW 13.7 Plt Count 158 Neut % (Auto) 61.7 Lymph % (Auto) 25.2 [place] % (Auto) 10.9 Eos % (Auto) 1.8 L Baso % (Auto) 0.4 Neut # (Auto) 3600 Lymph # (Auto) 1500 [place] # (Auto) 600 Eos # (Auto) 100 Baso # (Auto) 0 Sodium 138 Potassium 4.5 Chloride 109 H Carbon Dioxide 22 BUN 23 H Creatinine 0.88 Estimated GFR > 60.0 BUN/Creatinine Ratio 26.1 H Glucose 124 H Calcium 9.7 Total Bilirubin 0.3 AST 22 ALT 18 Alkaline Phosphatase 59 Total Creatine Kinase 99 CK-MB (CK-2) TNP CK-MB (CK-2) Rel Index TNP Troponin I < 0.012 Total Protein 6.9 Albumin 3.8 Globulin 3.1 Albumin/Globulin Ratio 1.2 Lipase 23 Nasal Screen MRSA (PCR) SARS-CoV-2 (PCR) Negative 01/26/21 09:56 WBC RBC Hgb Hct MCV MCH MCHC RDW Plt Count Neut % (Auto) Lymph % (Auto) [place] % (Auto) Eos % (Auto) Baso % (Auto) Neut # (Auto) Lymph # (Auto) [place] # (Auto) Eos # (Auto) Baso # (Auto) Sodium Potassium Chloride Carbon Dioxide BUN Creatinine Estimated GFR BUN/Creatinine Ratio Glucose Calcium Total Bilirubin AST ALT Alkaline Phosphatase Total Creatine Kinase CK-MB (CK-2) CK-MB (CK-2) Rel Index Troponin I Total Protein Albumin Globulin Albumin/Globulin Ratio Lipase Nasal Screen MRSA (PCR) Negative for mrsa SARS-CoV-2 (PCR) Assessment & Plan Assessment & Plan narrative: 1. Chest pain and diaphoresis -patient with initial normal troponin and EKG without acute ischemia findings, additionally he had no new findings on very recent myocardial perfusion stress test, nevertheless it is prudent to admit him for rule out considering his symptoms and history of coronary disease -also noted is patient was taken off of his low-dose aspirin just recently when he was diagnosed with AFib and started on Eliquis, therefore it is probably prudent to put him back on his aspirin in case this is coronary disease related symptoms -aspirin 81 mg daily -continue metoprolol succinate 25 mg q.d. and lisinopril 20 mg q.a.m., and statin per home routine -telemetry monitoring -repeat troponin level at 1:00 p.m. and 9:00 p.m. -EKG for recurrent chest pain 2. Atrial fibrillation recently diagnosed, unknown chronicity -continue Eliquis 5 mg b.i.d. 3. BPH -stable, continue tamsulosin per home routine Patient admitted to hospital observation services.
[2021-01-26 13:53] LABS: Troponin I < 0.012 ng/mL (0.01-0.034)
[2021-01-26] MEDS: TAMSULOSIN 0.4 MG CAPSULE 0.8 MG PO (17:05)
[2021-01-26] MEDS: lisinopriL 20 MG TABLET PO (17:05)
[2021-01-26 21:45] LABS: Troponin I < 0.012 ng/mL (0.01-0.034)
[2021-01-26] MEDS: APIXABAN 5 MG TABLET PO (22:13)
[2021-01-26] MEDS: MAG HYDROX/ALUM/SIMETH 30 ML UDC PO (22:13)
--- NOTE | 2021-01-27 01:27 | PC.NURSE ---
patient is alert and oriented. Breath sounds diminished but CTA with RA sat of 94%; denies SOB. HR irregular and telemetry reading was afib CVR. Denies any chest pain/pressure. Denies nausea. BT present and abdomen is soft. Denies dysuria, frequency or urgency with urination. Able to move self in bed. Provided SBA to bathroom for safety at night. Denies any pain. 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 Fall risk score is moderate and bed alarm is activated.
[2021-01-27 06:12] VITALS: BP 108/67; PULSE 78; RESP 16; TEMP 36.1; O2SAT 97
[2021-01-27 08:00] VITALS: O2SAT 97
[2021-01-27 08:21] VITALS: BP 109/61; PULSE 74; RESP 16; TEMP 36.4; O2SAT 97
[2021-01-27 08:55] VITALS: BP 109/61
[2021-01-27] MEDS: SODIUM CHLORIDE 0.9% FLUSH 10 ML IV (08:55)
[2021-01-27] MEDS: ASPIRIN EC 81 MG TABLET PO (08:55)
[2021-01-27] MEDS: SOLIFENACIN 5 MG TABLET 10 MG PO (08:55)
[2021-01-27] MEDS: METOPROLOL ER 25 MG TABLET PO (08:55)
[2021-01-27] MEDS: APIXABAN 5 MG TABLET PO (08:55)
--- NOTE | 2021-01-27 09:15 | PC.NURSE ---
0800- Pt states he is aware of mild 2/10 pressure to his mid chest area-states it is not pain. Denies nausea, shortness of breath, dizziness or any other location of pain. Notified Dr. Rice. No new orders.
--- NOTE | 2021-01-27 09:17 | PC.NURSE ---
0900 in to see Pt who is visiting with his son at the bedside. Pt again states that he is aware of pressure to central chest area 2/10 and states again that it is not pain. Denies nausea, shortness of breath, or dizziness. Notified Dr. Rice. EKG ordered-afib/aflutter CVR. RT to show Dr. Rice EKG result.
[2021-01-27 10:58] LABS: Troponin I < 0.012 ng/mL (0.01-0.034)
--- NOTE | 2021-01-27 14:02 | PC.NURSE ---
1200 Pt is dressed and ready for discharge home with Son. HL and Tele removed. Pt and Son have talked with Dr. Rice. Discharge instructions reviewed. Stroke education reviewed. No further questions. Pt out via w/c by ENVIRONMENTAL PERMITTING SPECIALIST to pov with Son and all belongings.
--- NOTE | 2021-01-27 14:46 | CM.IDA ---
Initial DCP Assessment Note Pt is an 85 yo male, resident of [place], presents w/chest pain, PMH includes significant cardiac history, admitted observation for chest pain r/o. Patient cleared for medical DC late this morning PCP: Osbaldo Cuevas Payer: [facility] life Reviewed chart, pt discussed in multidisciplinary rounds this morning. No needs expected from this [facility] according to Dr Rice. Supportive son at bedside today w/patient and plans to transport patient home upon DC. Attempted to meet w/pt and son this afternoon and patient had already been DC and left for home w/son, w/close outpatient f/u recommended, no needs from this [facility] [place]
--- NOTE | 2021-01-27 18:20 | PM.DS.1 ---
History of Present Illness History of Present Illness Chief complaint: Chest pain Narrative: Patient is an 85-year-old male with history of coronary artery disease, SC, status post coronary stenting in 2008, recently diagnosis atrial fibrillation presented with complaints of chest pain and diaphoresis. Patient states that yesterday afternoon he noticed onset of persistent retrosternal chest discomfort. The chest pain lasted to the evening until he went to bed. It was nonpleuritic. He woke up at about 4:00 a.m. to P and became profusely diaphoretic and weak on returning to bed. Patient sees for cardiology. He has history of SC in 2008 and had coronary stenting x5 in [place]. Last echo was on September 03, 2020 which showed normal LV size, EF 55-60%, mild concentric LVH, mild MR/AR. He had a gabriel altered perfusion stress test very recently on 01/17/2021 which showed fixed basal to mid inferior wall defects and fixed apical septal defect consistent with old SC, LV size and EF 4 normal, no change versus stress test on 02/03/2019. Patient states he was recently diagnosed with atrial fibrillation and started on apixaban and taken off of his low-dose aspirin. On ER evaluation he was mildly hypertensive with heart rate in the 70s in AFib and O2 sat 95% room air. EKG showed atrial fibrillation with controlled VR and nonspecific T-wave abnormality. Initial troponin was normal. Other labs were unremarkable. Chest x-ray indicated prominent heart size but otherwise normal. Discharge Providers Provider Date of admission: 01/26/21 07:55 Discharge Date: 01/27/21 Primary care physician: Osbaldo Cuevas MD Discharge provider: Fabian Rice MD Summary Hospital Course Discharge Diagnosis: 1. Chest pain unclear etiology 2. History of coronary artery disease 3. Chronic/persistent atrial fibrillation Patient admitted for rule out SC. He had serial negative cardiac enzymes and no ischemic findings on EKG or telemetry. He had continued mild symptoms of chest discomfort. Following morning his troponin and EKG remain normal except for AFib findings. He is rate controlled with his atrial fibrillation. He had very recent normal myocardial perfusion stress test and echocardiogram in August of this year as well. At this time it is not clear whether symptoms of her cardiac or acid reflux. He had discontinued aspirin in the last few months after started on Eliquis for AFib anticoagulation. I have instructed him to resume aspirin 81 mg q.d. 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 Stephens. He is to seek immediate medical attention if he has new or severe symptoms. Status at Discharge Cognitive/behavioral status at discharge: oriented Functional status at discharge: independent ambulation Overall status at discharge: patient is back to baseline Exam Vital Signs (past 8 hours): Oxygen Delivery Method Room Air Oxygen Flow Rate 0 Objective Labs Result Diagrams: 01/26/21 05:06 01/26/21 05:06 Labs: Laboratory Results - last 24 hr 01/26/21 01/27/21 21:04 10:16 Troponin I < 0.012 < 0.012 PFSH Medical History Balance problems (02/08/16) Chickenpox Coronary artery disease (2008) Coronary artery disease involving [place] coronary artery of [place] heart without angina pectoris (02/08/16) Dysphagia (09/04/16) Essential hypertension (02/08/16) Fatigue (08/03/16) Gastroesophageal reflux disease (06/13/16) Headache Hearing loss (2014) History of malignant neoplasm of prostate (04/08/15) Hx of myocardial infarction (Unknown) Hypertension (Unknown) Left foot drop (03/06/17) Lumbar disc disease (2012) Measles Non-allergic rhinitis Peripheral polyneuropathy (03/06/17) Polio (1949) Prostate cancer (2008) Pure hypercholesterolemia (02/08/16) Spinal stenosis of lumbar region (02/08/16) Statin intolerance (02/08/16) Vitamin D deficiency (11/21/16) Surgical History History of prostate surgery (2009) Hx of heart surgery (2008) Hx of hernia repair (Unknown) Status post laminectomy Family History Father No problems noted. Mother Cancer Grandfather No problems noted. Grandmother No problems noted. Grandfather No problems noted. Grandmother Cancer Family/Other Stroke Heart attack Coronary artery disease Congestive heart failure Social History marital status: household members: none Smoking Status: Former smoker second hand exposure: No alcohol intake: current substance use type: does not use Discharge Plan Discharge Plan Patient Disposition: Home Provider Discharge Comment: Please start back on daily low dose aspirin until you see Dr Stephens. Return to ED if you get any severe pain, shortness of breath or fainting. Discharge orders & Medications Prescriptions: New aspirin 81 mg Tablet,Delayed Release (Dr/Ec) 81 mg PO DAILY Qty: 30 RF: 0 Continued lisinopril 20 mg tablet 20 mg PO QPM RF: 0 Vesicare 10 mg tablet 10 mg PO DAILY RF: 0 nitroglycerin 0.4 mg tablet, sublingual 0.4 mg SL Q5-15M PRN (Reason: Chest Pain) RF: 0 alpha lipoic acid 600 mg capsule 600 mg PO BEDTIME RF: 0 tamsulosin [Flomax] 0.4 MG capsule,extended release 24hr 0.8 mg PO QPM Qty: 0 RF: 0 CoQ-10 400 mg PO QPM Qty: 0 RF: 0 ascorbic acid (vitamin C) 500 MG tablet 500 mg PO DAILY Qty: 0 RF: 0 [VITAMIN K2] 100 mcg PO QPM Qty: 0 RF: 0 Eliquis 5 mg tablet 5 mg PO BID RF: 0 linaclotide 145 mcg capsule 145 mcg PO DAILY RF: 0 metoprolol succinate 25 mg tablet extended release 24 hr 25 mg PO DAILY RF: 0 Vitamin D3 1,500 unit 1,500 units PO DAILY RF: 0 loratadine [Allergy Relief (loratadine)] 10 mg Tablet 10 mg PO DAILY RF: 0 rosuvastatin [Crestor] 5 mg tablet 5 mg PO DAILY 30 Days Qty: 30 RF: 0 Follow up/Referrals: Osbaldo Cuevas MD [Primary Care Provider] - Agustina Stephens MD [Physician] - 1 Week Diet/Activity/Treatments Diet: Diet as Tolerated Visit Report/Discharge Packet Instructions: DI for Chest Pain Discharge Data Primary Care Provider: Osbaldo Cuevas Attending Provider: Fabian Rice
== END 2021-01-27 12:00 | disposition home or self-care (01) ==
LOC: ED 07:18 → AC 07:56 → ICU 08:57 → AC 17:21
PROVIDERS: Admitting Provider Internal Medicine; Emergency Provider Emergency Medicine; PCP Student in an Organized Health Care Education/Training Program; Referring Provider Emergency Medicine; Visit Provider Internal Medicine
DX: R07.9 Chest pain, unspecified (principal); I48.20 Chronic atrial fibrillation, unspecified; I25.10 Atherosclerotic heart disease of native coronary artery without angina pectoris; I25.2 Old myocardial infarction; I10 Essential (primary) hypertension; E78.5 Hyperlipidemia, unspecified; Z79.01 Long term (current) use of anticoagulants; Z87.891 Personal history of nicotine dependence; Z20.822 Contact with and (suspected) exposure to COVID-19; Z23 Encounter for immunization
CPT/HCPCS: 36415; 71045; 80053; 82550; 83690; 84484; 85025; 87635; 87797; 90471; 90656; 93005; 96360; 96361; 99284; C9803; G0378; Q2038

== ENCOUNTER 2021-03-16 14:02 | Emergency (ER) | payer MEDICARE, OTHER, SELFPAY ==
[2021-01-26 13:04] VITALS: BMI 30.2
[2021-03-16] VITALS (13 sets, daily range): BP systolic 136–186; BP diastolic 63–81; PULSE 57–71; RESP 14–24; TEMP 36.9; O2SAT 96–98
--- NOTE | 2021-03-16 14:04 | DI.RAD.S_ITS ---
PROCEDURE: XR CHEST 1V INDICATIONS: chest pain TECHNIQUE: One view of the chest was acquired. COMPARISON: [facility], CR, XR CHEST 1V, 01/26/2021, 5:09. FINDINGS: Surgical changes and devices: None. Lungs and pleura: Lungs are clear. No pleural effusions or pneumothorax. Mediastinum: Mediastinal contours appear normal. Heart size is normal. Bones and chest wall: No suspicious bony lesions. Multiple old healed left-sided rib fractures. Overlying soft tissues appear unremarkable. Unchanged cardiomegaly. IMPRESSION: Cardiomegaly. No evidence acute pulmonary process. Dictated by: Willie Freed M.D. on 03/16/2021 at 14:26 Approved by: Willie Freed M.D. on 03/16/2021 at 14:27
[2021-03-16 14:27] LABS: Add Manual Diff / Slide Review NO; Basophils Absolute Auto 0 /uL (0-100); Basophils Percent Auto 0.4 % (0-2); Eosinophils Absolute Auto 100 /uL (0-450); Eosinophils Percent Auto 0.7 % (2-4); Hematocrit 38.1 % (41-53); Hemoglobin 12.8 g/dL (13.5-17.5); Lymphocytes Absolute Auto 800 /uL (1100-4500); Lymphocytes Percent Auto 10.9 % (25-40); Mean Corpuscular HGB Conc 33.6 % (30-36); Mean Corpuscular Hemoglobin 32.5 PG (26-34); Mean Corpuscular Volume 96.7 fL (80-100); Monocytes Absolute Auto 600 /uL (0-900); Monocytes Percent Auto 8.3 % (3-14); Neutrophils Absolute Auto 5800 /uL (1500-7000); Neutrophils Percent Auto 79.7 % (50-75); Platelet Count 143 X10^3/uL (150-400); Red Blood Cell Count 3.94 X10^6/uL (4.5-5.9); Red Cell Distribution Width 13.8 % (11.6-14.8); White Blood Cell Count 7.3 X10^3/uL (4.5-11.0)
[2021-03-16 14:37] LABS: Alanine Aminotransferase 27 IU/L (<50); Albumin 3.6 g/dL (3.5-5.0); Albumin Globulin Ratio 1.1 (1.0-2.8); Alkaline Phosphatase 52 U/L (38-126); Aspartate Aminotransferase 23 IU/L (17-59); BUN Creatinine Ratio 23.1 (6-22); Bilirubin Total 0.8 mg/dL (0.2-1.3); Blood Urea Nitrogen 18 mg/dL (9-20); Calcium 8.9 mg/dL (8.4-10.2); Carbon Dioxide 24 mmol/L (22-32); Chloride 110 mmol/L (98-107); Creatine Kinase 82 U/L (55-170); Estimated Glomerular Filt Rate > 60.0 mL/min (>60); Globulin 3.2 g/dL (1.7-4.1); Glucose 134 mg/dL (80-110); HEMOLYSIS 22 (0-50); Potassium 4.3 mmol/L (3.4-5.1); Sodium 140 mmol/L (137-145); Total Protein 6.8 g/dL (6.3-8.2)
[2021-03-16 14:38] LABS: Lipase < 10 U/L (23-300); Magnesium 1.8 mg/dL (1.6-2.3)
[2021-03-16 14:49] LABS: Troponin I < 0.012 ng/mL (0.01-0.034)
--- NOTE | 2021-03-16 14:51 | PC.NURSE ---
Pt states tingling down left arm since this AM, now starting to tingle down left. Went to dentist this morning and reports BP was in the 170's, has been taking medications including ones for BP as prescribed. Per pt and family member present, increased weakness has been noted lately.
--- NOTE | 2021-03-16 16:10 | ED_ITS ---
HPI - Chest Pain General Chief Complaint: Chest Pain Stated Complaint: pain in left arm,tingling,high blood pressure Time Seen by Provider: 03/16/21 15:59 Source: patient and family Mode of arrival: Ambulatory History of Present Illness HPI narrative: Patient is an 85-year-old male history of coronary artery disease, hypertension, atrial fibrillation on Eliquis, obstructive sleep apnea presenting with 1 week worth of left arm pain. He states he feels like it is a pinched nerve. His arm aches his left hand is swollen he feels like every time he closes his hand a shins pain up into his wrist. He has not had any fever or chills. This noted to be mildly erythematous today. He denies any chest pain palpitations dizziness or lightheadedness. He has no weakness. He really has no neck pain pain is not exacerbated by his neck. It is not really exacerbated with his arm movement either. Left hand and wrist are noted to be still s wollen. Related Data Home Medications Medication Instructions Recorded Confirmed CoQ-10 400 mg PO QPM #0 11/21/16 02/03/21 ascorbic acid (vitamin C) 500 mg 500 mg PO DAILY #0 11/21/16 02/03/21 tablet tamsulosin 0.4 mg capsule (Flomax) 0.8 mg PO QPM #0 11/21/16 02/03/21 [VITAMIN K2] 100 mcg PO QPM #0 03/06/17 02/03/21 alpha lipoic acid 600 mg capsule 600 mg PO BEDTIME 12/11/18 02/03/21 lisinopril 20 mg tablet 20 mg PO QPM 12/11/18 02/03/21 solifenacin 10 mg tablet (Vesicare) 10 mg PO DAILY 12/11/18 02/03/21 Vitamin D3 1,500 units PO DAILY 12/18/18 02/03/21 metoprolol succinate 25 mg 25 mg PO DAILY 12/18/18 02/03/21 tablet,extended release 24 hr loratadine 10 mg tablet (Allergy 10 mg PO DAILY 09/03/20 02/03/21 Relief (loratadine)) apixaban 5 mg tablet (Eliquis) 5 mg PO BID 10/26/20 02/03/21 Previous Rx's Medication Instructions Recorded rosuvastatin 5 mg tablet (Crestor) 5 mg PO DAILY 30 Days #30 tab 09/04/20 nitroglycerin 0.4 mg sublingual 0.4 mg SL Q5-15M PRN #20 tab 01/27/21 tablet cephalexin 500 mg capsule 500 mg PO BID 7 Days #14 cap 03/16/21 Allergies Allergy/AdvReac Type Severity Reaction Status Date / Time No Known Drug Allergies Allergy Verified 02/03/21 13:58 Review of Systems Constitutional Constitutional: Denies chills, Denies fatigue, Denies fever(s), Denies frequent falls, Denies lethargy and Denies weakness Eyes Eyes: Denies change in vision, Denies eye discharge, Denies irritation and Denies loss of vision ENT Ears, Nose, Mouth, and Throat: Denies change in voice, Denies dizziness, Denies neck pain, Denies sore throat and Denies throat swelling Cardiovascular Cardiovascular: Denies chest pain, Denies irregular heart rhythm, Denies lightheadedness, Denies palpitations, Denies dyspnea, Denies dyspnea on exertion and Denies orthopnea Respiratory Respiratory: Denies cough, Denies dyspnea, Denies dyspnea on exertion and Denies wheezing Gastrointestinal Gastrointestinal: Denies abdominal pain, Denies change in bowel habits, Denies diarrhea, Denies nausea and Denies vomiting Musculoskeletal Musculoskeletal: Reports system reviewed and no additional complaints, except as documented, Reports joint swelling, Denies neck pain and Denies numbness Integumentary/Breasts Skin/Breast: Denies pruritus, Denies erythema, Denies rash and Denies wounds Neurologic Neurologic: Denies behavioral changes, Denies confusion, Denies dizziness, Denies frequent falls, Denies loss of vision, Denies numbness and Denies weakness Psychiatric Psychiatric: Denies anxiety, Denies behavioral changes, Denies confusion, Denies depression, Denies homicidal ideation and Denies suicidal ideation Endocrine Endocrine: Denies fatigue, Denies flushing and Denies palpitations Hematologic/Lymphatic Hematologic/Lymphatic: Denies easy bruising Allergic/Immunologic Allergic/Immunologic: Denies urticaria, Denies throat swelling and Denies wheezing Patient History Medical History (Updated 03/16/21 @ 17:23 by Debra Matias DO) Acute GI bleeding Balance problems (02/08/16) Chickenpox Coronary artery disease (2008) Coronary artery disease involving [place] coronary artery of [place] heart without angina pectoris (02/08/16) Essential hypertension (02/08/16) Gastroesophageal reflux disease (06/13/16) Headache Hearing loss (2014) History of malignant neoplasm of prostate (04/08/15) Hx of myocardial infarction (Unknown) Hypertension (Unknown) Left foot drop (03/06/17) Lumbar disc disease (2012) Measles Peripheral polyneuropathy (03/06/17) Polio (1950) Prostate cancer (2008) Pure hypercholesterolemia (02/08/16) Spinal stenosis of lumbar region (02/08/16) Statin intolerance (02/08/16) Vitamin D deficiency (11/21/16) Surgical History History of prostate surgery (2009) Hx of heart surgery (2008) Hx of hernia repair (Unknown) Status post laminectomy Family History Father No problems noted. Mother Cancer Grandfather No problems noted. Grandmother No problems noted. Grandfather No problems noted. Grandmother Cancer Family/Other Stroke Heart attack Coronary artery disease Congestive heart failure Social History marital status: household members: none Smoking Status: Former smoker second hand exposure: No alcohol intake: current substance use type: does not use Smoking Status: Former smoker alcohol intake frequency: a few times a week Substance Use Type: does not use Exam Initial Vital Signs Initial Vital Signs: Vital Signs Temperature 98.4 F 03/16/21 14:06 Pulse Rate 70 03/16/21 14:06 Respiratory Rate 22 03/16/21 14:06 Blood Pressure 186/81 H 03/16/21 14:06 Pulse Oximetry 97 03/16/21 14:06 GENERAL: Alert pleasant 85-year-old male and in [no acute] distress. HEENT: Head atraumatic,EOMI, pupils reactive, face symmetric, [moist] mucous membranes CARDIOVASCULAR: Irregularly irregular RESPIRATORY: Breath sounds equal bilaterally, no wheezes rales or rhonchi. ABDOMEN: Soft, nontender. Normoactive bowel sounds all 4 quadrants. No guardin g or rebound. EXTREMITIES: Normal range of motion, no clubbing or edema. Neurovascularly intact NEUROLOGICAL: Alert and oriented x4.Normal gait and speech. Cranial nerves II through XII grossly intact. Technologist Infectious Disease strength equal bilaterally SKIN: Left hand mildly swollen dorsal hand is slightly erythematous some erythema noted up the forearm as well. No obvious abscess or induration Course Orders Ordered: ED Orders 03/16/21 14:04 XR chest 1V Stat EKG-12 Lead Stat 03/16/21 14:20 C-Reactive Protein Quant Stat Complete Blood Count AUTO DIFF Stat Comprehensive Metabolic Panel Stat Erythrocyte Sedimentation Rate Stat Lipase Stat Magnesium Stat Procalcitonin Stat Troponin & CK Cardiac Panel Stat 03/16/21 16:08 EKG-12 Lead Stat Discontinued Medications Acetaminophen (Acetaminophen 325 Mg Tablet) 975 mg PO NOW ONE Stop: 03/16/21 16:24 Last Admin: 03/16/21 16:56 Dose: 975 mg Documented by: ELODIA Vital Signs Vital signs: Vital Signs - 8 hr 03/16/21 14:06 03/16/21 14:12 03/16/21 14:30 Temperature 98.4 F Pulse Rate 70 71 66 Respiratory Rate 22 14 Blood Pressure 186/81 H Pulse Oximetry 97 97 96 03/16/21 15:00 03/16/21 15:05 03/16/21 15:30 Temperature Pulse Rate 61 64 58 L Respiratory Rate 22 16 Blood Pressure 139/63 Pulse Oximetry 96 96 96 03/16/21 15:31 03/16/21 16:00 03/16/21 16:30 Temperature Pulse Rate 60 57 L 66 Respiratory Rate Blood Pressure 136/63 145/67 H Pulse Oximetry 96 96 97 03/16/21 16:31 03/16/21 17:00 03/16/21 17:30 Temperature Pulse Rate 59 L 62 61 Respiratory Rate 23 Blood Pressure 146/65 H 165/69 H Pulse Oximetry 97 97 98 03/16/21 17:31 Temperature Pulse Rate 67 Respiratory Rate 24 Blood Pressure 156/71 H Pulse Oximetry 97 MDM - Chest Pain Lab Data Attestation: I reviewed the patient's lab results. Result diagrams: 03/16/21 14:20 03/16/21 14:20 Labs: Lab Results 03/16/21 03/16/21 03/16/21 Range/Units 14:20 14:20 14:20 WBC 7.3 (4.5-11.0) X10^3/uL RBC 3.94 L (4.5-5.9) X10^6/uL Hgb 12.8 L (13.5-17.5) g/dL Hct 38.1 L (41-53) % MCV 96.7 (80-100) fL MCH 32.5 (26-34) PG MCHC 33.6 (30-36) % RDW 13.8 (11.6-14.8) % Plt Count 143 L (150-400) X10^3/uL Neut % (Auto) 79.7 H (50-75) % Lymph % (Auto) 10.9 L (25-40) % [place] % (Auto) 8.3 (3-14) % Eos % (Auto) 0.7 L (2-4) % Baso % (Auto) 0.4 (0-2) % Neut # (Auto) 5800 (8089-2822) /uL Lymph # (Auto) 800 L (5163-3172) /uL [place] # (Auto) 600 (0-900) /uL Eos # (Auto) 100 (0-450) /uL Baso # (Auto) 0 (0-100) /uL ESR (0-15) MM/HR Sodium 140 (137-145) mmol/L Potassium 4.3 (3.4-5.1) mmol/L Chloride 110 H (98-107) mmol/L Carbon Dioxide 24 (22-32) mmol/L BUN 18 (9-20) mg/dL Creatinine 0.78 (0.66-1.25) mg/dL Estimated GFR > 60.0 (>60) mL/min BUN/Creatinine Ratio 23.1 H (6-22) Glucose 134 H (80-110) mg/dL Calcium 8.9 (8.4-10.2) mg/dL Magnesium 1.8 (1.6-2.3) mg/dL Total Bilirubin 0.8 (0.2-1.3) mg/dL AST 23 (17-59) IU/L ALT 27 (<50) IU/L Alkaline Phosphatase 52 (38-126) U/L Total Creatine Kinase 82 (55-170) U/L CK-MB (CK-2) TNP CK-MB (CK-2) Rel Index TNP Troponin I < 0.012 (0.01-0.034) ng/mL C-Reactive Protein (<1.0) mg/dL Total Protein 6.8 (6.3-8.2) g/dL Albumin 3.6 (3.5-5.0) g/dL Globulin 3.2 (1.7-4.1) g/dL Albumin/Globulin Ratio 1.1 (1.0-2.8) Lipase < 10 L (23-300) U/L Procalcitonin (<0.5) ng/mL 03/16/21 03/16/21 03/16/21 Range/Units 14:20 14:20 14:20 WBC (4.5-11.0) X10^3/uL RBC (4.5-5.9) X10^6/uL Hgb (13.5-17.5) g/dL Hct (41-53) % MCV (80-100) fL MCH (26-34) PG MCHC (30-36) % RDW (11.6-14.8) % Plt Count (150-400) X10^3/uL Neut % (Auto) (50-75) % Lymph % (Auto) (25-40) % [place] % (Auto) (3-14) % Eos % (Auto) (2-4) % Baso % (Auto) (0-2) % Neut # (Auto) (5412-0104) /uL Lymph # (Auto) (8626-7830) /uL [place] # (Auto) (0-900) /uL Eos # (Auto) (0-450) /uL Baso # (Auto) (0-100) /uL ESR 18 H (0-15) MM/HR Sodium (137-145) mmol/L Potassium (3.4-5.1) mmol/L Chloride (98-107) mmol/L Carbon Dioxide (22-32) mmol/L BUN (9-20) mg/dL Creatinine (0.66-1.25) mg/dL Estimated GFR (>60) mL/min BUN/Creatinine Ratio (6-22) Glucose (80-110) mg/dL Calcium (8.4-10.2) mg/dL Magnesium (1.6-2.3) mg/dL Total Bilirubin (0.2-1.3) mg/dL AST (17-59) IU/L ALT (<50) IU/L Alkaline Phosphatase (38-126) U/L Total Creatine Kinase (55-170) U/L CK-MB (CK-2) CK-MB (CK-2) Rel Index Troponin I (0.01-0.034) ng/mL C-Reactive Protein 0.9 (<1.0) mg/dL Total Protein (6.3-8.2) g/dL Albumin (3.5-5.0) g/dL Globulin (1.7-4.1) g/dL Albumin/Globulin Ratio (1.0-2.8) Lipase (23-300) U/L Procalcitonin 0.06 (<0.5) ng/mL Imaging Data Chest x-ray: Radiologist's Impression: PROCEDURE: XR CHEST 1V INDICATIONS: chest pain TECHNIQUE: One view of the chest was acquired. COMPARISON: [facility], , XR CHEST 1V, 01/26/2021, 5:09. FINDINGS: Surgical changes and devices: None. Lungs and pleura: Lungs are clear. No pleural effusions or pneumothorax. Mediastinum: Mediastinal contours appear normal. Heart size is normal. Bones and chest wall: No suspicious bony lesions. Multiple old healed left- sided rib fractures. Overlying soft tissues appear unremarkable. Unchanged cardiomegaly. IMPRESSION: Cardiomegaly. No evidence acute pulmonary process. Dictated by: Willie Freed M.D. on 03/16/2021 at 14:26 ECG Data Attestation: I personally reviewed and interpreted this ECG as follows: Interpretation: Atrial flutter rate [address] changes EKG 2. Atrial flutter rate [address] changes MDM Narrative Medical decision making narrative: Patient blood work overall looks good. He has obvious swelling and mild erythema of his hand. Likely arthritis vs cellulitis. Do not suspect septic joint at this time. He is able to move wrist easily. Will start him on antibiotic. Daughter thinks the redness may have just started today. He has good cap refill. I certainly do not think this is cardiac related. He is noted to be bradycardic at times down to the 30s low he is asymptomatic it does not seem to last long. Discharge Plan Departure Patient Disposition: Home Clinical Impression: Cellulitis Qualifiers: Site of cellulitis: extremity Site of cellulitis of extremity: upper extremity Laterality: left Qualified Code(s): L03.114 - Cellulitis of left upper limb Instructions: DI for Cellulitis -- Adult Activity Restrictions/Additional Instructions: *You have been diagnosed with cellulitis of left hand *What to do: At this time elevate arm to help promote drainage. May ice 20-30 minutes at a time. Will start you on antibiotics. This may be arthritis but hopefully you start to feel better. *Continue to take medications as directed Tylenol 500 mg every 46 hours if needed for pain Keflex 500 mg twice a day for 7 days *Follow up with your primary care provider in 2-3 days *Return to ER if you should have increasing redness, increasing pain inability to move fingers, fever, confusion, worsening chest pain, passing out or any new, worsening or concerning symptoms Prescriptions: New cephalexin 500 mg capsule 500 mg PO BID 7 Days Qty: 14 RF: 0 No Action lisinopril 20 mg tablet 20 mg PO QPM RF: 0 Vesicare 10 mg tablet 10 mg PO DAILY RF: 0 alpha lipoic acid 600 mg capsule 600 mg PO BEDTIME RF: 0 tamsulosin [Flomax] 0.4 MG capsule,extended release 24hr 0.8 mg PO QPM Qty: 0 RF: 0 CoQ-10 400 mg PO QPM Qty: 0 RF: 0 ascorbic acid (vitamin C) 500 MG tablet 500 mg PO DAILY Qty: 0 RF: 0 [VITAMIN K2] 100 mcg PO QPM Qty: 0 RF: 0 nitroglycerin 0.4 mg tablet, sublingual 0.4 mg SL Q5-15M PRN (Reason: Chest Pain) Qty: 20 RF: 11 Eliquis 5 mg tablet 5 mg PO BID RF: 0 metoprolol succinate 25 mg tablet extended release 24 hr 25 mg PO DAILY RF: 0 Vitamin D3 1,500 unit 1,500 units PO DAILY RF: 0 loratadine [Allergy Relief (loratadine)] 10 mg Tablet 10 mg PO DAILY RF: 0 rosuvastatin [Crestor] 5 mg tablet 5 mg PO DAILY 30 Days Qty: 30 RF: 0 Referrals: Osbaldo Cuevas MD [Primary Care Provider] -
[2021-03-16 16:50] LABS: Procalcitonin 0.06 ng/mL (<0.5)
[2021-03-16] MEDS: ACETAMINOPHEN 325 MG TABLET 975 MG PO (16:56)
[2021-03-16 18:00] LABS: C-Reactive Protein Quant 0.9 mg/dL (<1.0)
[2021-03-16 18:18] LABS: Erythrocyte Sedimentation Rate 18 MM/HR (0-15)
== END 2021-03-16 17:38 | disposition home or self-care (01) ==
PROVIDERS: Emergency Provider Emergency Medicine; PCP Student in an Organized Health Care Education/Training Program
DX: L03.114 Cellulitis of left upper limb (principal); R07.9 Chest pain, unspecified; R00.1 Bradycardia, unspecified
CPT/HCPCS: 36415; 71045; 80053; 82550; 83690; 83735; 84145; 84484; 85025; 85651; 86140; 93005; 93010; 99284

== ENCOUNTER → 2021-04-06 11:41 | Outpatient (CLI) | payer MEDICARE, OTHER, SELFPAY ==
[2021-01-26 13:04] VITALS: BMI 30.2
[2021-04-06 14:09] LABS: Prostate Specific Antigen < 0.064 ng/mL (0.10-4.00)
== END ==
PROVIDERS: PCP Student in an Organized Health Care Education/Training Program; Referring Provider Urology; Visit Provider Urology
DX: Z85.46 Personal history of malignant neoplasm of prostate (principal)
CPT/HCPCS: 36415; 84153

== ENCOUNTER 2021-07-18 14:30 | Outpatient (RCR) | payer MEDICARE, OTHER, SELFPAY ==
[2021-01-26 13:04] VITALS: BMI 30.2
--- NOTE | 2021-05-26 16:28 | PT.OIE ---
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) Foot drop, left foot (05/26/21) Past Medical History (Last Reviewed 04/20/21 @ 13:55 by Rakesh Carvalho MD) Acute GI bleeding Balance problems (02/08/16) Chickenpox Coronary artery disease (2008) Coronary artery disease involving sal[place] coronary artery of [place] heart without angina pectoris (02/08/16) Essential hypertension (02/08/16) Gastroesophageal reflux disease (06/13/16) Headache Hearing loss (2014) History of malignant neoplasm of prostate (04/08/15) History of prostate surgery (2009) Hx of heart surgery (2008) Hx of hernia repair (Unknown) Hx of myocardial infarction (Unknown) Hypertension (Unknown) Left foot drop (03/06/17) Lumbar disc disease (2012) Measles Peripheral polyneuropathy (03/06/17) Polio (1949) Prostate cancer (2008) Pure hypercholesterolemia (02/08/16) Spinal stenosis of lumbar region (02/08/16) Statin intolerance (02/08/16) Vitamin D deficiency (11/21/16) Past Surgical History (Last Reviewed 04/20/21 @ 13:55 by Rakesh Carvalho MD) History of prostate surgery (2009) Hx of heart surgery (2008) Hx of hernia repair (Unknown) Status post laminectomy Visit Care Team Role Provider Type Osbaldo Cuevas MD Family Provider Physician Primary Care Provider Specialty: Internal Medicine Address: [address] [place] [address], [address], [address] Email: [email or web address] Myles Arndt MD Attending Provider Non-Staff Referring Provider Specialty: Neurology Address: [address] [place] [address], [id number] Email: Physical Therapy Initial Evaluation PT-OP-A Visit Information Start: 05/25/21 12:10 Freq: Status: Active Protocol: Document 05/26/21 09:45 MB (Rec: 05/26/21 10:14 MB [id number]) Out-Patient Physical Therapy Visit Information Visit Information Visit Type Initial Evaluation Visit Note Medicare, for Life 12/13 before KX Visit Start Time 09:45 Visit Stop Time 10:30 Total Visit Minutes 45 Visit Number 1 Evaluation Information Evaluation Date 05/26/21 Precautions Precautions Fall risk PT-OP-B Current Condition Start: 05/25/21 12:10 Freq: Status: Active Protocol: Document 05/26/21 09:45 MB (Rec: 05/26/21 10:14 MB [id number]) Current Condition History of Current Condition Onset Date 2014 Current Complaints B feet pain and neuropathy, left ankle rolling and foot drop History of Current Condition PMH includes back surgery, angioplasty with stent, prostate surgery, peripheral neuropathy and left foot drop, statin intolerance, polio age 11 and no residual effects ( he was given sulfa drugs), HTN and [place]. Pt has had PT on and off since 2014 when the neuropathy started after laminectomy. He most recently had PT at [facility] this year and the course was short. He was given some exercises. The neuropathy started on the left and is now across both feet and it wakes him up at night. He is receiving oral medications for neuropathy including alpha lipoic acid, N-acetylcysteine, B12 and vitamin D. His DIL is very helpful with going to doctors' appointments, medications and him working on his diet. Pt lives by himself. He only has a couple of steps. He is building a new house that will have an elevator. His land will adjoin his son's place and he will get a golf cart. He is using his cane in his right hand. He occasionally uses the walker to haul stuff. Pt likes horse riding. He twisted his left ankle when getting off the horse last week. Her reports 0-3/10 B ankles. Pt had an AFO that was prescribed 2-3 years ago from a neurologist at [facility] and he did not like it. It is annoying. Pt reports 1 fall in six months and it was two weeks ago. He thinks he stepped on a dog toy. He rescued a pit mix . Pt just ordered some supplements including magnesium. Prior Treatments and Tests PT, AFO, testing, oral medications Treatment Goals Patient/Caregiver Goals To get rid of pain and buring sensation. PT-OP-C Subjective Start: 05/25/21 12:10 Freq: Status: Active Protocol: Document 05/26/21 09:45 MB (Rec: 05/26/21 10:14 MB [id number]) OP-PT Subjective Patient Comments Patient Comments See history of current condition Patient Questionnaires Lower Extremity Functional Scale LEFS Score 31 LEFS Impairment 60 to 79% Impaired (Score 17- 31) PT-OP-D Balance Start: 05/25/21 12:10 Freq: Status: Active Protocol: Document 05/26/21 09:45 MB (Rec: 05/26/21 16:27 MB [id number]) OP-PT Balance Assessment Sitting Balance Static Sitting Balance Ability Good Dynamic Sitting Balance Ability Fair Sitting Balance Comments UE support for MMT LEs Standing Balance Static Standing Balance Ability Fair Dynamic Standing Balance Ability Poor Standing Balance Comments When pt moves to bring his feet into Romberg, his has left foot drop positioning Balance Tests Romberg Romberg EO 30 sec, superv assist, cues to tip left toes in March Fall Scale Copyright Permission PT-OP-G Mobility & Gait Start: 05/25/21 12:10 Freq: Status: Active Protocol: Document 05/26/21 09:45 MB (Rec: 05/26/21 16:27 MB [id number]) OP Gait Assessment Gait Gait Assistance Required: Independent Distance (Feet) 50 Able to Maintain Weight Bearing Status Yes During Gait Assistive Devices Assistive Device Straight Cane Orthotic/Prosthetic Devices or Brace: No Gait Deviations General Gait Pattern Decreased Stride Length, Decreased Feet Clearance, Flexed Trunk,Step-to Gait,Wide Based Gait Factors Limiting Gait Function Factors Limiting Gait Function Abnormal Tonal Influences, Decreased Activity Tolerance, Decreased Sensation,Decreased Strength,Incoordination, Limited Range of Motion,Poor Balance Comments Gait Comments Pt gait trains with cane in right hand. He presents with functional foot drop left foot that is more noticeable when he gait trains without AD at end of eval. 50'x2 with cane in right hand and 10'x2 without AD. Increased Riley angle on the left, slow gait. Pt states that he does not wear socks because it affects his sensation. He wears velcro shoes. He presents with left greater than right LE mild erythema and edema. Pt has an AFO that he dislikes and does not yet but will bring in in future treatments. PT-OP-K Range of Motion Start: 05/25/21 12:10 Freq: Status: Active Protocol: Document 05/26/21 09:45 MB (Rec: 05/26/21 16:27 MB [id number]) Ankle and Foot Goniometric Range of Motion Ankle and Foot ROM Limitations Comments R foot with little active inversion in sitting when assessed. Left ankle has trace inversion and eversion and no DF. Also, decreased left great toe extension. Mild erythema and edema left foot. PT-OP-M Strength Start: 05/25/21 12:10 Freq: Status: Active Protocol: Document 05/26/21 09:45 MB (Rec: 05/26/21 16:27 MB [id number]) Hip Strength Hip Manual Muscle Testing Left Flexion (L2) 5 Normal Comments Pt sitting in chair for MMT Right Flexion (L2) 5 Normal Comments Pt sitting in chair for MMT Knee Strength Knee Manual Muscle Testing Left Flexion (S2) 5 Normal Extension (L3) 5 Normal Right Flexion (S2) 5 Normal Extension (L3) 5 Normal Ankle/Foot Strength Ankle and Foot Manual Muscle Testing Left Dorsiflexion (L4) 0 Zero Inversion 1 Trace Eversion (S1) 1 Trace Right Dorsiflexion (L4) 5 Normal Eversion (S1) 3 Fair Comments No real inversion when asked to perform Toe Strength Toe Manual Muscle Testing Left Great Toe Extension 2- Poor- Right Great Toe Extension 3+ Fair+ PT-OP-T Assessment and Plan Start: 05/25/21 12:10 Freq: Status: Active Protocol: Document 05/26/21 09:45 MB (Rec: 05/26/21 16:27 MB [id number]) Physical Therapy Assessment Rehab Potential Rehabilitation Potential Fair Evaluation Complexity Number of Personal Factors/Comorbidities 3 or More Number of Body Systems Impaired 3 Clinical Presentation at Evaluation Evolving Impairments Impairments Activity Tolerance,Balance, Edema,Functional Mobility,Gait ,Integument,Pain,Posture,ROM, Sensation,Soft Tissue Mobility ,Strength,Transfers Other Impairments Personal factors include pt lives alone, has long history of neuropathy and left foot drop and does not like to wear socks or his AFO. Body systems affected include neurological, musculoskeletal, metabolic. His clinical presentation is evolving. Other Concerns Fall Risk Yes, foot drop, history of falls Goals 2 Correction Goal (LTG) Pt will perform progressive HEP with I including strengthening, balance and gait exercises to improve balance and gait by 06/30/21. LTG Duration 5 weeks 1 Correction Goal (LTG) Pt will perform WNLs on Tinetti or TUG to reflect improved balance and decreased fall risk by 06/30/21. LTG Duration 5 weeks Assessment Summary Assessment Pt is an 85 y/o male presenting with 6 year history of neuropathy and left foot drop. He reports that neuropathic pain has now moved to both feet. Pt's toe propioception is normal today, he does not have clonus and he has left heel cord shortening. He has tried PT several times and also got a left AFO that he does not like or wear. He also does not wear socks as he states this impairs his sensation. He has a history of lumbar surgery, cardiovascular disease, prostate CA s/p treatment and diagnosis of idiopathic neuropathy. PT ed pt that it is unlikely that PT will be able to reduce his neuropathic pain. Also, he has had previously unsuccessful PT courses. Will initiate short PT course, likely 8 appointments or so, to improve strength, flexibility, balance and gait and to teach safety strategies. He is in agreement to bringing in his AFO for PT to look at it. His functional prognosis is guarded to fair. Physical Therapy Plan Frequency and Duration Frequency of Treatment 2x/Week Duration of Treatment 5 weeks Plan of Care Start Date 05/26/21 Plan of Care End Date 05/31/21 Therapeutic Interventions Therapeutic Interventions Balance Training,Canalithic Repositioning,Coordination Training,Gait Training,Home Exercise Program,Joint Mobilizations,Manual Therapy, Neuromuscular Re-education, Orthotic/Prosthetic Management ,Patient/Caregiver Education, Self-Care/Home Management, Sensory Integration,Soft Tissue Mobilization,Taping, Therapeutic Activities, Therapeutic Exercises Modalities Cold Pack/Ice Massage,Hot Packs Next Visit Focus/Plan Next Note Type Treatment Note Next Visit Plan Recumbent stepper, initiate exercises
--- NOTE | 2021-05-26 16:28 | PT.OPPOC ---
Physical, Occupational & Speech Therapy At [facility] 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) Foot drop, left foot (05/26/21) Visit Care Team Role Provider Type Osbaldo Cuevas MD Family Provider Physician Primary Care Provider Specialty: Internal Medicine Address: [address] [place] [address], [facility] [address], [place], [address] Email: [email or web address] Myles Arndt MD Attending Provider Non-Staff Referring Provider Specialty: Neurology Address: [address] [place], [address] Email: Plan Of Care PT-OP-T Assessment and Plan Start: 05/25/21 12:10 Freq: Status: Active Protocol: Document 05/26/21 09:45 MB (Rec: 05/26/21 16:27 MB [id number]) Physical Therapy Assessment Rehab Potential Rehabilitation Potential Fair Evaluation Complexity Number of Personal Factors/Comorbidities 3 or More Number of Body Systems Impaired 3 Clinical Presentation at Evaluation Evolving Impairments Impairments Activity Tolerance,Balance, Edema,Functional Mobility,Gait ,Integument,Pain,Posture,ROM, Sensation,Soft Tissue Mobility ,Strength,Transfers Other Impairments Personal factors include pt lives alone, has long history of neuropathy and left foot drop and does not like to wear socks or his AFO. Body systems affected include neurological, musculoskeletal, metabolic. His clinical presentation is evolving. Other Concerns Fall Risk Yes, foot drop, history of falls Goals 2 Group Home Goal (LTG) Pt will perform progressive HEP with I including strengthening, balance and gait exercises to improve balance and gait by 06/30/21. LTG Duration 5 weeks 1 Group Home Goal (LTG) Pt will perform WNLs on Tinetti or TUG to reflect improved balance and decreased fall risk by 06/30/21. LTG Duration 5 weeks Assessment Summary Assessment Pt is an 85 y/o male presenting with 6 year history of neuropathy and left foot drop. He reports that neuropathic pain has now moved to both feet. Pt's toe propioception is normal today, he does not have clonus and he has left heel cord shortening. He has tried PT several times and also got a left AFO that he does not like or wear. He also does not wear socks as he states this impairs his sensation. He has a history of lumbar surgery, cardiovascular disease, prostate CA s/p treatment and diagnosis of idiopathic neuropathy. PT ed pt that it is unlikely that PT will be able to reduce his neuropathic pain. Also, he has had previously unsuccessful PT courses. Will initiate short PT course, likely 8 appointments or so, to improve strength, flexibility, balance and gait and to teach safety strategies. He is in agreement to bringing in his AFO for PT to look at it. His functional prognosis is guarded to fair. Physical Therapy Plan Frequency and Duration Frequency of Treatment 2x/Week Duration of Treatment 5 weeks Plan of Care Start Date 05/26/21 Plan of Care End Date 05/31/21 Therapeutic Interventions Therapeutic Interventions Balance Training,Canalithic Repositioning,Coordination Training,Gait Training,Home Exercise Program,Joint Mobilizations,Manual Therapy, Neuromuscular Re-education, Orthotic/Prosthetic Management ,Patient/Caregiver Education, Self-Care/Home Management, Sensory Integration,Soft Tissue Mobilization,Taping, Therapeutic Activities, Therapeutic Exercises Modalities Cold Pack/Ice Massage,Hot Packs Next Visit Focus/Plan Next Note Type Treatment Note Next Visit Plan Recumbent stepper, initiate exercises Plan of Care Dates Plan of Care Start Date 05/26/21 Plan of Care End Date 05/31/21 Electronically Signed by: Fanny Gomez, PT 05/26/21 3173 Please Sign and Return: I have reviewed this Plan of Care and certify that the skilled therapy services above are required to meet the patient?s needs. Physician Signature Date Printed Name and Credentials Clinical Instructor Signature Printed Name and Credentials
--- NOTE | 2021-05-31 13:46 | PT.OTN ---
Current Diagnoses Other hereditary and idiopathic neuropathies (05/31/21) Foot drop, left foot (05/31/21) Physical Therapy Treatment Note PT-OP-A Visit Information Start: 05/25/21 12:10 Freq: Status: Active Protocol: Document 05/31/21 12:59 MB (Rec: 05/31/21 13:46 MB [id number]) Out-Patient Physical Therapy Visit Information Visit Information Visit Type Treatment Note Visit Note Medicare, for Life 01/12 before KX Visit Start Time 12:59 Visit Stop Time 13:39 Total Visit Minutes 40 Visit Number 2 Evaluation Information Evaluation Date 05/26/21 Precautions Precautions Fall risk PT-OP-B Current Condition Start: 05/25/21 12:10 Freq: Status: Active Protocol: Document 05/26/21 09:45 MB (Rec: 05/26/21 10:14 MB [id number]) Current Condition History of Current Condition Onset Date 2014 Current Complaints B feet pain and neuropathy, left ankle rolling and foot drop History of Current Condition PMH includes back surgery, angioplasty with stent, prostate surgery, peripheral neuropathy and left foot drop, statin intolerance, 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 Pt has had PT on and off since 2014 when the neuropathy started after laminectomy. He most recently had PT at [facility] this year and the course was short. He was given some exercises. The neuropathy started on the left and is now across both feet and it wakes him up at night. He is receiving oral medications for neuropathy including alpha lipoic acid, N-acetylcysteine, B12 and vitamin D. His DIL is very helpful with going to doctors' appointments, medications and him working on his diet. Pt lives by himself. He only has a couple of steps. He is building a new house that will have an elevator. His land will adjoin his son's place and he will get a golf cart. He is using his cane in his right hand. He occasionally uses the walker to haul stuff. Pt likes horse riding. He twisted his left ankle when getting off the horse last week. Her reports 0-3/10 B ankles. Pt had an AFO that was prescribed 2-3 years ago from a neurologist at [facility] and he did not like it. It is annoying. Pt reports 1 fall in six months and it was two weeks ago. He thinks he stepped on a dog toy. He rescued a pit mix . Pt just ordered some supplements including magnesium. Prior Treatments and Tests PT, AFO, testing, oral medications Treatment Goals Patient/Caregiver Goals To get rid of pain and buring sensation. PT-OP-C Subjective Start: 05/25/21 12:10 Freq: Status: Active Protocol: Document 05/31/21 12:59 MB (Rec: 05/31/21 13:46 MB [id number]) OP-PT Subjective Patient Comments Patient Comments Pt states that he just got out of the [place]. He is amazed he got here on time. PT-OP-D Balance Start: 05/25/21 12:10 Freq: Status: Active Protocol: Document 05/26/21 09:45 MB (Rec: 05/26/21 16:27 MB [id number]) OP-PT Balance Assessment Sitting Balance Static Sitting Balance Ability Good Dynamic Sitting Balance Ability Fair Sitting Balance Comments UE support for MMT LEs Standing Balance Static Standing Balance Ability Fair Dynamic Standing Balance Ability Poor Standing Balance Comments When pt moves to bring his feet into Romberg, his has left foot drop positioning Balance Tests Romberg Romberg EO 30 sec, superv assist, cues to tip left toes in March Fall Scale Copyright Permission PT-OP-G Mobility & Gait Start: 05/25/21 12:10 Freq: Status: Active Protocol: Document 05/26/21 09:45 MB (Rec: 05/26/21 16:27 MB [id number]) OP Gait Assessment Gait Gait Assistance Required: Independent Distance (Feet) 50 Able to Maintain Weight Bearing Status Yes During Gait Assistive Devices Assistive Device Straight Cane Orthotic/Prosthetic Devices or Brace: No Gait Deviations General Gait Pattern Decreased Stride Length, Decreased Feet Clearance, Flexed Trunk,Step-to Gait,Wide Based Gait Factors Limiting Gait Function Factors Limiting Gait Function Abnormal Tonal Influences, Decreased Activity Tolerance, Decreased Sensation,Decreased Strength,Incoordination, Limited Range of Motion,Poor Balance Comments Gait Comments Pt gait trains with cane in right hand. He presents with functional foot drop left foot that is more noticeable when he gait trains without AD at end of eval. 50'x2 with cane in right hand and 10'x2 without AD. Increased Riley angle on the left, slow gait. Pt states that he does not wear socks because it affects his sensation. He wears velcro shoes. He presents with left greater than right LE mild erythema and edema. Pt has an AFO that he dislikes and does not yet but will bring in in future treatments. PT-OP-K Range of Motion Start: 05/25/21 12:10 Freq: Status: Active Protocol: Document 05/26/21 09:45 MB (Rec: 05/26/21 16:27 MB [id number]) Ankle and Foot Goniometric Range of Motion Ankle and Foot ROM Limitations Comments R foot with little active inversion in sitting when assessed. Left ankle has trace inversion and eversion and no DF. Also, decreased left great toe extension. Mild erythema and edema left foot. PT-OP-M Strength Start: 05/25/21 12:10 Freq: Status: Active Protocol: Document 05/26/21 09:45 MB (Rec: 05/26/21 16:27 MB [id number]) Hip Strength Hip Manual Muscle Testing Left Flexion (L2) 5 Normal Comments Pt sitting in chair for MMT Right Flexion (L2) 5 Normal Comments Pt sitting in chair for MMT Knee Strength Knee Manual Muscle Testing Left Flexion (S2) 5 Normal Extension (L3) 5 Normal Right Flexion (S2) 5 Normal Extension (L3) 5 Normal Ankle/Foot Strength Ankle and Foot Manual Muscle Testing Left Dorsiflexion (L4) 0 Zero Inversion 1 Trace Eversion (S1) 1 Trace Right Dorsiflexion (L4) 5 Normal Eversion (S1) 3 Fair Comments No real inversion when asked to perform Toe Strength Toe Manual Muscle Testing Left Great Toe Extension 2- Poor- Right Great Toe Extension 3+ Fair+ PT-OP-Q Treatments Start: 05/25/21 12:10 Freq: Status: Active Protocol: Document 05/31/21 12:59 MB (Rec: 05/31/21 13:46 MB [id number]) Cardio Equipment Recumbent Elliptical ([employer]) Duration (Minutes) 15 Resistance 3 Seat Position 10 Therapeutic Exercises Sitting Exercises LAQ and AP with band around ankles Side bilateral Equipment Used Level 2 band around ankles Comments LAQ and AP on right end-range x10, alternating Clams with band around knees Side bilateral Equipment Used Level 2 band around knees Comments 10 reps, squeeze glutes first Sit to stands Sitting Exercise Name Pt can perform well with and without hands Comments 30 sec: 9 reps Self-Care/Home Management Treatment Education Other Education Importance of daily exercise and fitness to help with his goal of weight loss and function Benefits of WB exercises for neuromuscular feedback through the left foot (closed chain exercise) Possible benefits of recumbent stepper from home PT-OP-T Assessment and Plan Start: 05/25/21 12:10 Freq: Status: Active Protocol: Document 05/31/21 12:59 MB (Rec: 05/31/21 13:46 MB [id number]) Physical Therapy Assessment Rehab Potential Rehabilitation Potential Fair Evaluation Complexity Number of Personal Factors/Comorbidities 3 or More Number of Body Systems Impaired 3 Clinical Presentation at Evaluation Evolving Impairments Impairments Activity Tolerance,Balance, Edema,Functional Mobility,Gait ,Integument,Pain,Posture,ROM, Sensation,Soft Tissue Mobility ,Strength,Transfers Other Impairments Personal factors include pt lives alone, has long history of neuropathy and left foot drop and does not like to wear socks or his AFO. Body systems affected include neurological, musculoskeletal, metabolic. His clinical presentation is evolving. Other Concerns Fall Risk Yes, foot drop, history of falls Goals 2 Mediation Commissioner Goal (LTG) Pt will perform progressive HEP with I including strengthening, balance and gait exercises to improve balance and gait by 06/30/21. LTG Duration 5 weeks 1 Mediation Commissioner Goal (LTG) Pt will perform WNLs on Tinetti or TUG to reflect improved balance and decreased fall risk by 06/30/21. LTG Duration 5 weeks Assessment Summary Assessment Pt cane is too high for him and he is not willing for PT to lower it today but may be open in future treatments. Initiated ther ex for exercise at home today and PT ed pt in how important it is for him to follow-through with exercises at home. ? compliance. Physical Therapy Plan Frequency and Duration Frequency of Treatment 2x/Week Duration of Treatment 5 weeks Plan of Care Start Date 05/26/21 Plan of Care End Date 05/31/21 Therapeutic Interventions Therapeutic Interventions Balance Training,Canalithic Repositioning,Coordination Training,Gait Training,Home Exercise Program,Joint Mobilizations,Manual Therapy, Neuromuscular Re-education, Orthotic/Prosthetic Management ,Patient/Caregiver Education, Self-Care/Home Management, Sensory Integration,Soft Tissue Mobilization,Taping, Therapeutic Activities, Therapeutic Exercises Modalities Cold Pack/Ice Massage,Hot Packs Next Visit Focus/Plan Next Note Type Treatment Note Next Visit Plan Con't recumbent stepper, progress exercises, lower his cane, check out AFO if he brings it in
--- NOTE | 2021-06-03 14:38 | PT.OTN ---
Current Diagnoses Other hereditary and idiopathic neuropathies (06/03/21) Foot drop, left foot (06/03/21) Physical Therapy Treatment Note PT-OP-A Visit Information Start: 05/25/21 12:10 Freq: Status: Active Protocol: Document 06/03/21 13:45 MB (Rec: 06/03/21 14:38 MB [id number]) Out-Patient Physical Therapy Visit Information Visit Information Visit Type Treatment Note Visit Note Medicare, for Life 02/12 before KX Susie is pt's DIL who has been so helpful to him. PT con 't to ask him to bring her in to appointment. Visit Start Time 13:45 Visit Stop Time 14:30 Total Visit Minutes 45 Visit Number 3 Evaluation Information Evaluation Date 05/26/21 Precautions Precautions Fall risk PT-OP-B Current Condition Start: 05/25/21 12:10 Freq: Status: Active Protocol: Document 05/26/21 09:45 MB (Rec: 05/26/21 10:14 MB [id number]) Current Condition History of Current Condition Onset Date 2014 Current Complaints B feet pain and neuropathy, left ankle rolling and foot drop History of Current Condition PMH includes back surgery, angioplasty with stent, prostate surgery, peripheral neuropathy and left foot drop, statin intolerance, 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 Pt has had PT on and off since 2014 when the neuropathy started after laminectomy. He most recently had PT at [facility] this year and the course was short. He was given some exercises. The neuropathy started on the left and is now across both feet and it wakes him up at night. He is receiving oral medications for neuropathy including alpha lipoic acid, N-acetylcysteine, B12 and vitamin D. His DIL is very helpful with going to doctors' appointments, medications and him working on his diet. Pt lives by himself. He only has a couple of steps. He is building a new house that will have an elevator. His land will adjoin his son's place and he will get a golf cart. He is using his cane in his right hand. He occasionally uses the walker to haul stuff. Pt likes horse riding. He twisted his left ankle when getting off the horse last week. Her reports 0-3/10 B ankles. Pt had an AFO that was prescribed 2-3 years ago from a neurologist at [facility] and he did not like it. It is annoying. Pt reports 1 fall in six months and it was two weeks ago. He thinks he stepped on a dog toy. He rescued a pit mix . Pt just ordered some supplements including magnesium. Prior Treatments and Tests PT, AFO, testing, oral medications Treatment Goals Patient/Caregiver Goals To get rid of pain and buring sensation. PT-OP-C Subjective Start: 05/25/21 12:10 Freq: Status: Active Protocol: Document 06/03/21 13:45 MB (Rec: 06/03/21 14:38 MB [id number]) OP-PT Subjective Patient Comments Patient Comments Pt states that he was really stiff and worn out after the last PT treatment. He can tell how much he has not been doing at home as far as being more sedentary. PT-OP-D Balance Start: 05/25/21 12:10 Freq: Status: Active Protocol: Document 05/26/21 09:45 MB (Rec: 05/26/21 16:27 MB [id number]) OP-PT Balance Assessment Sitting Balance Static Sitting Balance Ability Good Dynamic Sitting Balance Ability Fair Sitting Balance Comments UE support for MMT LEs Standing Balance Static Standing Balance Ability Fair Dynamic Standing Balance Ability Poor Standing Balance Comments When pt moves to bring his feet into Romberg, his has left foot drop positioning Balance Tests Romberg Romberg EO 30 sec, superv assist, cues to tip left toes in March Fall Scale Copyright Permission PT-OP-G Mobility & Gait Start: 05/25/21 12:10 Freq: Status: Active Protocol: Document 05/26/21 09:45 MB (Rec: 05/26/21 16:27 MB [id number]) OP Gait Assessment Gait Gait Assistance Required: Independent Distance (Feet) 50 Able to Maintain Weight Bearing Status Yes During Gait Assistive Devices Assistive Device Straight Cane Orthotic/Prosthetic Devices or Brace: No Gait Deviations General Gait Pattern Decreased Stride Length, Decreased Feet Clearance, Flexed Trunk,Step-to Gait,Wide Based Gait Factors Limiting Gait Function Factors Limiting Gait Function Abnormal Tonal Influences, Decreased Activity Tolerance, Decreased Sensation,Decreased Strength,Incoordination, Limited Range of Motion,Poor Balance Comments Gait Comments Pt gait trains with cane in right hand. He presents with functional foot drop left foot that is more noticeable when he gait trains without AD at end of eval. 50'x2 with cane in right hand and 10'x2 without AD. Increased Riley angle on the left, slow gait. Pt states that he does not wear socks because it affects his sensation. He wears velcro shoes. He presents with left greater than right LE mild erythema and edema. Pt has an AFO that he dislikes and does not yet but will bring in in future treatments. PT-OP-K Range of Motion Start: 05/25/21 12:10 Freq: Status: Active Protocol: Document 05/26/21 09:45 MB (Rec: 05/26/21 16:27 MB [id number]) Ankle and Foot Goniometric Range of Motion Ankle and Foot ROM Limitations Comments R foot with little active inversion in sitting when assessed. Left ankle has trace inversion and eversion and no DF. Also, decreased left great toe extension. Mild erythema and edema left foot. PT-OP-M Strength Start: 05/25/21 12:10 Freq: Status: Active Protocol: Document 05/26/21 09:45 MB (Rec: 05/26/21 16:27 MB [id number]) Hip Strength Hip Manual Muscle Testing Left Flexion (L2) 5 Normal Comments Pt sitting in chair for MMT Right Flexion (L2) 5 Normal Comments Pt sitting in chair for MMT Knee Strength Knee Manual Muscle Testing Left Flexion (S2) 5 Normal Extension (L3) 5 Normal Right Flexion (S2) 5 Normal Extension (L3) 5 Normal Ankle/Foot Strength Ankle and Foot Manual Muscle Testing Left Dorsiflexion (L4) 0 Zero Inversion 1 Trace Eversion (S1) 1 Trace Right Dorsiflexion (L4) 5 Normal Eversion (S1) 3 Fair Comments No real inversion when asked to perform Toe Strength Toe Manual Muscle Testing Left Great Toe Extension 2- Poor- Right Great Toe Extension 3+ Fair+ PT-OP-Q Treatments Start: 05/25/21 12:10 Freq: Status: Active Protocol: Document 06/03/21 13:45 MB (Rec: 06/03/21 14:38 MB [id number]) Cardio Equipment Recumbent Elliptical (BeFunky) Duration (Minutes) 15 Resistance 1-3 Seat Position 11 Gait Training Gait Activity Gait training inside and outside Comments 110' inside clinic to his SUV outside with cane in right hand and no LOB, ongoing similar gait pattern to 6MWT 6MWT Comments Pt gait trains 761 feet in 6 minutes with cane in right hand that PT moved down and inch and that should be lower still but it cannot go any lower. Slow corby, wide AGUSTÍN, left foot drop and increased left hip flexion/hike. Pt tends to look down the whole time with gait and ed him in the importance of looking up every now and then to scan ahead and he is not very comfortable with this. He has one episode LOB when left foot does not clear and he catches his balance on a corrective step Self-Care/Home Management Treatment Education Other Education Re-ed benefits of asking his DIL, Susie, to come in to PT appointment, PT recommendation to come up with a weekly exercise routine/ plan for him to con't exercise for strengthening, cardiovascular health including possible recumbent stepper for home versus going to the pool gym that has one, re-ed pt that PT will not likely get his neuropathy better, benefis of bringing in another cane that goes lower and his AFO PT-OP-T Assessment and Plan Start: 05/25/21 12:10 Freq: Status: Active Protocol: Document 06/03/21 13:45 MB (Rec: 06/03/21 14:38 MB [id number]) Physical Therapy Assessment Rehab Potential Rehabilitation Potential Fair Evaluation Complexity Number of Personal Factors/Comorbidities 3 or More Number of Body Systems Impaired 3 Clinical Presentation at Evaluation Evolving Impairments Impairments Activity Tolerance,Balance, Edema,Functional Mobility,Gait ,Integument,Pain,Posture,ROM, Sensation,Soft Tissue Mobility ,Strength,Transfers Other Impairments Personal factors include pt lives alone, has long history of neuropathy and left foot drop and does not like to wear socks or his AFO. Body systems affected include neurological, musculoskeletal, metabolic. His clinical presentation is evolving. Other Concerns Fall Risk Yes, foot drop, history of falls Goals 2 Pulp Drier Firer Goal (LTG) Pt will perform progressive HEP with I including strengthening, balance and gait exercises to improve balance and gait by 06/30/21. LTG Duration 5 weeks 1 Assisted Goal (LTG) Pt will perform WNLs on Tinetti or TUG to reflect improved balance and decreased fall risk by 06/30/21. LTG Duration 5 weeks Assessment Summary Assessment Con't to push pt doing exercises during PT treatment to improve overall fitness and leg strength and ongoing ed for importance of this going forward. Lowered cane 1 notch and it is now as low as it will go. 6MWT today. Physical Therapy Plan Frequency and Duration Frequency of Treatment 2x/Week Duration of Treatment 5 weeks Plan of Care Start Date 05/26/21 Plan of Care End Date 06/30/21 Therapeutic Interventions Therapeutic Interventions Balance Training,Canalithic Repositioning,Coordination Training,Gait Training,Home Exercise Program,Joint Mobilizations,Manual Therapy, Neuromuscular Re-education, Orthotic/Prosthetic Management ,Patient/Caregiver Education, Self-Care/Home Management, Sensory Integration,Soft Tissue Mobilization,Taping, Therapeutic Activities, Therapeutic Exercises Modalities Cold Pack/Ice Massage,Hot Packs Next Visit Focus/Plan Next Note Type Treatment Note Next Visit Plan Con't recumbent stepper, progress exercises, check out AFO if he brings it in and other cane if he brings it in
--- NOTE | 2021-06-03 14:38 | PT.OPPOC ---
Physical, Occupational & Speech Therapy At [facility] Current Diagnoses Other hereditary and idiopathic neuropathies (06/03/21) Foot drop, left foot (06/03/21) Visit Care Team Role Provider Type Osbaldo Cuevas MD Family Provider Physician Primary Care Provider Specialty: Internal Medicine Address: [address] [place] [address], [facility] [address], [address] Email: [email or web address] Myles Arndt MD Attending Provider Non-Staff Referring Provider Specialty: Neurology Address: [address] [place], [address] Email: Plan Of Care PT-OP-T Assessment and Plan Start: 05/25/21 12:10 Freq: Status: Active Protocol: Document 06/03/21 13:45 MB (Rec: 06/03/21 14:38 MB [id number]) Physical Therapy Assessment Rehab Potential Rehabilitation Potential Fair Evaluation Complexity Number of Personal Factors/Comorbidities 3 or More Number of Body Systems Impaired 3 Clinical Presentation at Evaluation Evolving Impairments Impairments Activity Tolerance,Balance, Edema,Functional Mobility,Gait ,Integument,Pain,Posture,ROM, Sensation,Soft Tissue Mobility ,Strength,Transfers Other Impairments Personal factors include pt lives alone, has long history of neuropathy and left foot drop and does not like to wear socks or his AFO. Body systems affected include neurological, musculoskeletal, metabolic. His clinical presentation is evolving. Other Concerns Fall Risk Yes, foot drop, history of falls Goals 2 Mcc Goal (LTG) Pt will perform progressive HEP with I including strengthening, balance and gait exercises to improve balance and gait by 06/30/21. LTG Duration 5 weeks 1 Grappler Goal (LTG) Pt will perform WNLs on Tinetti or TUG to reflect improved balance and decreased fall risk by 06/30/21. LTG Duration 5 weeks Assessment Summary Assessment Con't to push pt doing exercises during PT treatment to improve overall fitness and leg strength and ongoing ed for importance of this going forward. Lowered cane 1 notch and it is now as low as it will go. 6MWT today. Physical Therapy Plan Frequency and Duration Frequency of Treatment 2x/Week Duration of Treatment 5 weeks Plan of Care Start Date 05/26/21 Plan of Care End Date 06/30/21 Therapeutic Interventions Therapeutic Interventions Balance Training,Canalithic Repositioning,Coordination Training,Gait Training,Home Exercise Program,Joint Mobilizations,Manual Therapy, Neuromuscular Re-education, Orthotic/Prosthetic Management ,Patient/Caregiver Education, Self-Care/Home Management, Sensory Integration,Soft Tissue Mobilization,Taping, Therapeutic Activities, Therapeutic Exercises Modalities Cold Pack/Ice Massage,Hot Packs Next Visit Focus/Plan Next Note Type Treatment Note Next Visit Plan Con't recumbent stepper, progress exercises, check out AFO if he brings it in and other cane if he brings it in Plan of Care Dates Plan of Care Start Date 05/26/21 Plan of Care End Date 06/30/21 Electronically Signed by: Fanny Gomez, PT 06/03/21 4621 Please Sign and Return: I have reviewed this Plan of Care and certify that the skilled therapy services above are required to meet the patient?s needs. Physician Signature Date Printed Name and Credentials Clinical Instructor Signature Printed Name and Credentials
--- NOTE | 2021-06-07 11:21 | PT.OTN ---
Current Diagnoses Other hereditary and idiopathic neuropathies (06/07/21) Foot drop, left foot (06/07/21) Physical Therapy Treatment Note PT-OP-A Visit Information Start: 05/25/21 12:10 Freq: Status: Active Protocol: Document 06/07/21 10:31 SP (Rec: 06/07/21 12:19 SP [id number]) Out-Patient Physical Therapy Visit Information Visit Information Visit Type Treatment Note Visit Note Medicare, for Life 03/14 before KX Susie is pt's DIL who has been so helpful to him, attended appt discussed recumbent bike stepper vs elliptical for more cardiovascular and strengthening at home vs personal revolutional recumbent uses daily. Visit Start Time 10:31 Visit Stop Time 11:21 Total Visit Minutes 50 Visit Number 4 Number of ADULT EDUCATION MANAGER Visits 1 Evaluation Information Evaluation Date 05/26/21 Precautions Precautions Fall risk PT-OP-B Current Condition Start: 05/25/21 12:10 Freq: Status: Active Protocol: Document 05/26/21 09:45 MB (Rec: 05/26/21 10:14 MB [id number]) Current Condition History of Current Condition Onset Date 2014 Current Complaints B feet pain and neuropathy, left ankle rolling and foot drop History of Current Condition PMH includes back surgery, angioplasty with stent, prostate surgery, peripheral neuropathy and left foot drop, statin intolerance, 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 Pt has had PT on and off since 2014 when the neuropathy started after laminectomy. He most recently had PT at [facility] this year and the course was short. He was given some exercises. The neuropathy started on the left and is now across both feet and it wakes him up at night. He is receiving oral medications for neuropathy including alpha lipoic acid, N-acetylcysteine, B12 and vitamin D. His DIL is very helpful with going to doctors' appointments, medications and him working on his diet. Pt lives by himself. He only has a couple of steps. He is building a new house that will have an elevator. His land will adjoin his son's place and he will get a golf cart. He is using his cane in his right hand. He occasionally uses the walker to haul stuff. Pt likes horse riding. He twisted his left ankle when getting off the horse last week. Her reports 0-3/10 B ankles. Pt had an AFO that was prescribed 2-3 years ago from a neurologist at [facility] and he did not like it. It is annoying. Pt reports 1 fall in six months and it was two weeks ago. He thinks he stepped on a dog toy. He rescued a pit mix . Pt just ordered some supplements including magnesium. Prior Treatments and Tests PT, AFO, testing, oral medications Treatment Goals Patient/Caregiver Goals To get rid of pain and buring sensation. PT-OP-C Subjective Start: 05/25/21 12:10 Freq: Status: Active Protocol: Document 06/07/21 10:31 SP (Rec: 06/07/21 12:19 SP [id number]) OP-PT Subjective Patient Comments Patient Comments Pt arrived with SBQC family purchased at proper height, AFO to assess gait but doesn't like to wear, family purchasing alternative, see similar hand out scanned in for image to view. Pt stated doing balance exercises from previous IRG along with personal recumbent and exercises has from PT. PT-OP-D Balance Start: 05/25/21 12:10 Freq: Status: Active Protocol: Document 05/26/21 09:45 MB (Rec: 05/26/21 16:27 MB [id number]) OP-PT Balance Assessment Sitting Balance Static Sitting Balance Ability Good Dynamic Sitting Balance Ability Fair Sitting Balance Comments UE support for MMT LEs Standing Balance Static Standing Balance Ability Fair Dynamic Standing Balance Ability Poor Standing Balance Comments When pt moves to bring his feet into Romberg, his has left foot drop positioning Balance Tests Romberg Romberg EO 30 sec, superv assist, cues to tip left toes in March Fall Scale Copyright Permission PT-OP-G Mobility & Gait Start: 05/25/21 12:10 Freq: Status: Active Protocol: Document 05/26/21 09:45 MB (Rec: 05/26/21 16:27 MB [id number]) OP Gait Assessment Gait Gait Assistance Required: Independent Distance (Feet) 50 Able to Maintain Weight Bearing Status Yes During Gait Assistive Devices Assistive Device Straight Cane Orthotic/Prosthetic Devices or Brace: No Gait Deviations General Gait Pattern Decreased Stride Length, Decreased Feet Clearance, Flexed Trunk,Step-to Gait,Wide Based Gait Factors Limiting Gait Function Factors Limiting Gait Function Abnormal Tonal Influences, Decreased Activity Tolerance, Decreased Sensation,Decreased Strength,Incoordination, Limited Range of Motion,Poor Balance Comments Gait Comments Pt gait trains with cane in right hand. He presents with functional foot drop left foot that is more noticeable when he gait trains without AD at end of eval. 50'x2 with cane in right hand and 10'x2 without AD. Increased Riley angle on the left, slow gait. Pt states that he does not wear socks because it affects his sensation. He wears velcro shoes. He presents with left greater than right LE mild erythema and edema. Pt has an AFO that he dislikes and does not yet but will bring in in future treatments. PT-OP-K Range of Motion Start: 05/25/21 12:10 Freq: Status: Active Protocol: Document 05/26/21 09:45 MB (Rec: 05/26/21 16:27 MB [id number]) Ankle and Foot Goniometric Range of Motion Ankle and Foot ROM Limitations Comments R foot with little active inversion in sitting when assessed. Left ankle has trace inversion and eversion and no DF. Also, decreased left great toe extension. Mild erythema and edema left foot. PT-OP-M Strength Start: 05/25/21 12:10 Freq: Status: Active Protocol: Document 05/26/21 09:45 MB (Rec: 05/26/21 16:27 MB [id number]) Hip Strength Hip Manual Muscle Testing Left Flexion (L2) 5 Normal Comments Pt sitting in chair for MMT Right Flexion (L2) 5 Normal Comments Pt sitting in chair for MMT Knee Strength Knee Manual Muscle Testing Left Flexion (S2) 5 Normal Extension (L3) 5 Normal Right Flexion (S2) 5 Normal Extension (L3) 5 Normal Ankle/Foot Strength Ankle and Foot Manual Muscle Testing Left Dorsiflexion (L4) 0 Zero Inversion 1 Trace Eversion (S1) 1 Trace Right Dorsiflexion (L4) 5 Normal Eversion (S1) 3 Fair Comments No real inversion when asked to perform Toe Strength Toe Manual Muscle Testing Left Great Toe Extension 2- Poor- Right Great Toe Extension 3+ Fair+ PT-OP-Q Treatments Start: 05/25/21 12:10 Freq: Status: Active Protocol: Document 06/07/21 10:31 SP (Rec: 06/07/21 12:19 SP [id number]) Therapeutic Exercises Supine Exercises LTR Supine Exercise Name LS warm up am Side bilateral Resistance added to HEP Reps/Minutes 20s x3 Comments decrease lateral LB stitches when get up in am good response Sitting Exercises lumbar flexion stretch Sitting Exercise Name forward and off to each LE ( see HO) Side bilateral Resistance added as needed for lumbar tightness Reps/Minutes 20s x2 Comments good feedback response for lumbar side stitches LAQ and AP with band around ankles Side bilateral Equipment Used Level 2 band around ankles Comments LAQ and AP on right end-range x10, alternating Clams with band around knees Side bilateral Equipment Used Level 2 band around knees Comments 10 reps, squeeze glutes first Standing Exercises self STMs Standing Exercise Name paraspinals, QL Side bilateral Equipment Used tennis ball at wall Comments good feedback response Gait Training Gait Activity 6MWT Comments Pt gait trains 676 feet in 6 minutes with SBQC in right hand (obstacles in way today). Moderate corby, normal AGUSTÍN with AFO donned. Pt tends to look down the whole time with gait and ed him in the importance of looking up every now and then to scan ahead and he is not very comfortable with this. He has couple of deviations to R and SBQC slower than corby affected balance. Pt states prefers SPC . Pt deviations to R balance self correct stepping. Neuro Re-Education Treatment Balance Activities Narrow AGUSTÍN Details Narrow AGUSTÍN, semi tandem Surface firm Equipment at side table- discussed back to corner chair front safety Reps/Duration semi Comments 1. stationary- good 2. head turns wt shift deviations but self recovery 3. EC- wt shift deviations NBOS but self recovery 30 s, semitandem 4 sec before LOB x2 LE each position contact self recovery. Self-Care/Home Management Treatment Education Patient Education Home Exercise Program Caregiver Education Extra time spent education with Susie (JAYLEEN), re-ed benefits of recumbent stepper or elliptical vs his personal bike, pt feels gets more strengthening throught B ankles during PT elliptical. Ed on how to find proper seated distance. Discussed use of AFO during gait on L for DF support and family wants him to use but pt doesn't like how current AFO is high on joyner and irritates foot/ joyner. DIL stated will be getting alternative DF ankle wrap that attaches to shoe lace for support required. (similar image scanned in). Other Education Re education on HEP seated daily and use of personal recumbent bike (Schwinn) for cardiovascular exercise. ADULT EDUCATION MANAGER discussed stepper/ ellliptical provides increased LE forward pressure and ankle mobility vs Schwinn has currently pt states doesn't feel ankles get as much resistance. PT-OP-T Assessment and Plan Start: 05/25/21 12:10 Freq: Status: Active Protocol: Document 06/07/21 10:31 SP (Rec: 06/07/21 12:19 SP [id number]) Physical Therapy Assessment Goals 2 Teacher Hearing Impaired Goal (LTG) Pt will perform progressive HEP with I including strengthening, balance and gait exercises to improve balance and gait by 06/30/21. LTG Duration 5 weeks 1 Teacher Hearing Impaired Goal (LTG) Pt will perform WNLs on Tinetti or TUG to reflect improved balance and decreased fall risk by 06/30/21. LTG Duration 5 weeks Assessment Summary Assessment Improved step length and foot clearance with AFO donned. DIL will be getting new one (see hand out for similar one purchasing soon that pt feels will give help need and allow ankle to still keep strength. DIL didn't stay for full tx just wanted to get suggestions of recumbent stepper use in PT for home prefers over personal Schwinn recumbent bike uses daily at home. Height of new SBQC correct that family purchased for him. DIL didn't stay during assessment of use of QC and ADULT EDUCATION MANAGER/ PT preferred SPC with telecoping height for proper fit, didnt' get to discuss with family. Tx reviewed HEP with pt and given stretching with good response to improved tightness in side and reviewed past balance does at home front sink. Ed for NBOS ok and semi tandem in corner chair front for safety due to deviations in balance. Physical Therapy Plan Frequency and Duration Frequency of Treatment 2x/Week Duration of Treatment 5 weeks Plan of Care Start Date 05/26/21 Plan of Care End Date 06/30/21 Therapeutic Interventions Therapeutic Interventions Balance Training,Canalithic Repositioning,Coordination Training,Gait Training,Home Exercise Program,Joint Mobilizations,Manual Therapy, Neuromuscular Re-education, Orthotic/Prosthetic Management ,Patient/Caregiver Education, Self-Care/Home Management, Sensory Integration,Soft Tissue Mobilization,Taping, Therapeutic Activities, Therapeutic Exercises Modalities Cold Pack/Ice Massage,Hot Packs Next Visit Focus/Plan Next Note Type Treatment Note Next Visit Plan Assess response to seated and initiated: LTR and seated stretching, recheck past static balance. POC: Con't recumbent stepper, progress exercises: core, hip abd strengthening for stability gait.
--- NOTE | 2021-06-09 13:48 | PT.OTN ---
Current Diagnoses Other hereditary and idiopathic neuropathies (06/09/21) Foot drop, left foot (06/09/21) Physical Therapy Treatment Note PT-OP-A Visit Information Start: 05/25/21 12:10 Freq: Status: Active Protocol: Document 06/09/21 13:04 SP (Rec: 06/09/21 13:49 SP [id number]) Out-Patient Physical Therapy Visit Information Visit Information Visit Type Treatment Note Visit Note Medicare, for Life 04/14 before KX Visit Start Time 13:04 Visit Stop Time 13:48 Total Visit Minutes 44 Visit Number 5 Number of DRUG ABUSE PROGRAM COORDINATOR Visits 2 Evaluation Information Evaluation Date 05/26/21 Precautions Precautions Fall risk PT-OP-B Current Condition Start: 05/25/21 12:10 Freq: Status: Active Protocol: Document 05/26/21 09:45 MB (Rec: 05/26/21 10:14 MB [id number]) Current Condition History of Current Condition Onset Date 2014 Current Complaints B feet pain and neuropathy, left ankle rolling and foot drop History of Current Condition PMH includes back surgery, angioplasty with stent, prostate surgery, peripheral neuropathy and left foot drop, statin intolerance, 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 Pt has had PT on and off since 2014 when the neuropathy started after laminectomy. He most recently had PT at [facility] this year and the course was short. He was given some exercises. The neuropathy started on the left and is now across both feet and it wakes him up at night. He is receiving oral medications for neuropathy including alpha lipoic acid, N-acetylcysteine, B12 and vitamin D. His DIL is very helpful with going to doctors' appointments, medications and him working on his diet. Pt lives by himself. He only has a couple of steps. He is building a new house that will have an elevator. His land will adjoin his son's place and he will get a golf cart. He is using his cane in his right hand. He occasionally uses the walker to haul stuff. Pt likes horse riding. He twisted his left ankle when getting off the horse last week. Her reports 0-3/10 B ankles. Pt had an AFO that was prescribed 2-3 years ago from a neurologist at [facility] and he did not like it. It is annoying. Pt reports 1 fall in six months and it was two weeks ago. He thinks he stepped on a dog toy. He rescued a pit mix . Pt just ordered some supplements including magnesium. Prior Treatments and Tests PT, AFO, testing, oral medications Treatment Goals Patient/Caregiver Goals To get rid of pain and buring sensation. PT-OP-C Subjective Start: 05/25/21 12:10 Freq: Status: Active Protocol: Document 06/09/21 13:04 SP (Rec: 06/09/21 13:49 SP [id number]) OP-PT Subjective Patient Comments Patient Comments Pt states coming to PT helps alot to motivate him. He has set Emma notifications for self performance or HEP but doesn't always go do. Pt arrived using personal [employer] blue SPC proper height. Pt stated today he just hasn't been able to get out of own way. Pt reports family purchased him a 4WW and uses in house to transport things in home. Also R foot not sensing julia today and so balance is off. PT-OP-D Balance Start: 05/25/21 12:10 Freq: Status: Active Protocol: Document 05/26/21 09:45 MB (Rec: 05/26/21 16:27 MB [id number]) OP-PT Balance Assessment Sitting Balance Static Sitting Balance Ability Good Dynamic Sitting Balance Ability Fair Sitting Balance Comments UE support for MMT LEs Standing Balance Static Standing Balance Ability Fair Dynamic Standing Balance Ability Poor Standing Balance Comments When pt moves to bring his feet into Romberg, his has left foot drop positioning Balance Tests Romberg Romberg EO 30 sec, superv assist, cues to tip left toes in March Fall Scale Copyright Permission PT-OP-G Mobility & Gait Start: 05/25/21 12:10 Freq: Status: Active Protocol: Document 05/26/21 09:45 MB (Rec: 05/26/21 16:27 MB [id number]) OP Gait Assessment Gait Gait Assistance Required: Independent Distance (Feet) 50 Able to Maintain Weight Bearing Status Yes During Gait Assistive Devices Assistive Device Straight Cane Orthotic/Prosthetic Devices or Brace: No Gait Deviations General Gait Pattern Decreased Stride Length, Decreased Feet Clearance, Flexed Trunk,Step-to Gait,Wide Based Gait Factors Limiting Gait Function Factors Limiting Gait Function Abnormal Tonal Influences, Decreased Activity Tolerance, Decreased Sensation,Decreased Strength,Incoordination, Limited Range of Motion,Poor Balance Comments Gait Comments Pt gait trains with cane in right hand. He presents with functional foot drop left foot that is more noticeable when he gait trains without AD at end of eval. 50'x2 with cane in right hand and 10'x2 without AD. Increased Riley angle on the left, slow gait. Pt states that he does not wear socks because it affects his sensation. He wears velcro shoes. He presents with left greater than right LE mild erythema and edema. Pt has an AFO that he dislikes and does not yet but will bring in in future treatments. PT-OP-K Range of Motion Start: 05/25/21 12:10 Freq: Status: Active Protocol: Document 05/26/21 09:45 MB (Rec: 05/26/21 16:27 MB [id number]) Ankle and Foot Goniometric Range of Motion Ankle and Foot ROM Limitations Comments R foot with little active inversion in sitting when assessed. Left ankle has trace inversion and eversion and no DF. Also, decreased left great toe extension. Mild erythema and edema left foot. PT-OP-M Strength Start: 05/25/21 12:10 Freq: Status: Active Protocol: Document 05/26/21 09:45 MB (Rec: 05/26/21 16:27 MB [id number]) Hip Strength Hip Manual Muscle Testing Left Flexion (L2) 5 Normal Comments Pt sitting in chair for MMT Right Flexion (L2) 5 Normal Comments Pt sitting in chair for MMT Knee Strength Knee Manual Muscle Testing Left Flexion (S2) 5 Normal Extension (L3) 5 Normal Right Flexion (S2) 5 Normal Extension (L3) 5 Normal Ankle/Foot Strength Ankle and Foot Manual Muscle Testing Left Dorsiflexion (L4) 0 Zero Inversion 1 Trace Eversion (S1) 1 Trace Right Dorsiflexion (L4) 5 Normal Eversion (S1) 3 Fair Comments No real inversion when asked to perform Toe Strength Toe Manual Muscle Testing Left Great Toe Extension 2- Poor- Right Great Toe Extension 3+ Fair+ PT-OP-Q Treatments Start: 05/25/21 12:10 Freq: Status: Active Protocol: Document 06/09/21 13:04 SP (Rec: 06/09/21 13:49 SP [id number]) Cardio Equipment Recumbent Stepper (Sci-Fit) Duration (Minutes) 9 Resistance 3 Seat Position 10 Other 1.02 miles, 40-45 RPM, LEs only Therapeutic Exercises Sitting Exercises LAQ and AP with band around ankles Side bilateral Equipment Used Level 2 band around ankles Reps/Minutes 2x10 Comments cued pause 2 sec for quad facilitation- good form Clams with band around knees Sitting Exercise Name HEP review Side bilateral Equipment Used Level 2 band around knees (red Reps/Minutes 2 sec hold x10 Comments squeeze glutes first Sit to stands Sitting Exercise Name hands across chest Equipment Used raised table 19 Reps/Minutes x10 reps, 30 sec: 11 reps Comments improved no post LE on table Standing Exercises hip abd, ext Standing Exercise Name in PT only Side bilateral Equipment Used contact table Reps/Minutes 2x10 each Comments cued knee extension Gait Training Gait Activity 6MWT Comments Pt gait trains 629 feet in 6 minutes with SPC in right hand , end of tx good corby, normalized AGUSTÍN. Pt occasional looking up while walking. Self recorrections on R wt shifts during gait and ed for walking further distance away from wall. PT-OP-T Assessment and Plan Start: 05/25/21 12:10 Freq: Status: Active Protocol: Document 06/09/21 13:04 SP (Rec: 06/09/21 13:49 SP [id number]) Physical Therapy Assessment Goals 2 Infectious Waste Technician Goal (LTG) Pt will perform progressive HEP with I including strengthening, balance and gait exercises to improve balance and gait by 06/30/21. LTG Duration 5 weeks 1 Infectious Waste Technician Goal (LTG) Pt will perform WNLs on Tinetti or TUG to reflect improved balance and decreased fall risk by 06/30/21. LTG Duration 5 weeks Assessment Summary Assessment Pt good cardiovascular endurance on recumbent stair stepper increased 9 min and 40 -45 RPM LEs only. States very pleased with PT and how finds very beneficial. DRUG ABUSE PROGRAM COORDINATOR educated on performing with his Emma reminders of exercises during day for carryover. Pt will bring hurrycane base has to see if can add to bottom of SPC next tx and bring Tb and outs to view self performance usage. Continue progress functional strengthening w/ balance and how can incorporate add at home. Physical Therapy Plan Frequency and Duration Frequency of Treatment 2x/Week Duration of Treatment 5 weeks Plan of Care Start Date 05/26/21 Plan of Care End Date 06/30/21 Therapeutic Interventions Therapeutic Interventions Balance Training,Canalithic Repositioning,Coordination Training,Gait Training,Home Exercise Program,Joint Mobilizations,Manual Therapy, Neuromuscular Re-education, Orthotic/Prosthetic Management ,Patient/Caregiver Education, Self-Care/Home Management, Sensory Integration,Soft Tissue Mobilization,Taping, Therapeutic Activities, Therapeutic Exercises Modalities Cold Pack/Ice Massage,Hot Packs Next Visit Focus/Plan Next Note Type Treatment Note Next Visit Plan Next tx: TUG. Added balance activities. Assess response to recumbent bike, seated HEP review, added standing exercise in PT, gait w/ SPC. POC: Con't recumbent stepper, progress exercises: core, hip abd strengthening for stability gait.
--- NOTE | 2021-06-13 13:08 | PT.OTN ---
Current Diagnoses Other hereditary and idiopathic neuropathies (06/13/21) Foot drop, left foot (06/13/21) Physical Therapy Treatment Note PT-OP-A Visit Information Start: 05/25/21 12:10 Freq: Status: Active Protocol: Document 06/13/21 12:17 MB (Rec: 06/13/21 13:07 MB [id number]) Out-Patient Physical Therapy Visit Information Visit Information Visit Type Treatment Note Visit Note Medicare, for Life 05/15 before KX Visit Start Time 12:17 Visit Stop Time 13:00 Total Visit Minutes 43 Visit Number 6 Number of CLASS A TRUCK DRIVER Visits 0 Evaluation Information Evaluation Date 05/26/21 Precautions Precautions Fall risk PT-OP-B Current Condition Start: 05/25/21 12:10 Freq: Status: Active Protocol: Document 05/26/21 09:45 MB (Rec: 05/26/21 10:14 MB [id number]) Current Condition History of Current Condition Onset Date 2014 Current Complaints B feet pain and neuropathy, left ankle rolling and foot drop History of Current Condition PMH includes back surgery, angioplasty with stent, prostate surgery, peripheral neuropathy and left foot drop, statin intolerance, 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 Pt has had PT on and off since 2014 when the neuropathy started after laminectomy. He most recently had PT at [facility] this year and the course was short. He was given some exercises. The neuropathy started on the left and is now across both feet and it wakes him up at night. He is receiving oral medications for neuropathy including alpha lipoic acid, N-acetylcysteine, B12 and vitamin D. His DIL is very helpful with going to doctors' appointments, medications and him working on his diet. Pt lives by himself. He only has a couple of steps. He is building a new house that will have an elevator. His land will adjoin his son's place and he will get a golf cart. He is using his cane in his right hand. He occasionally uses the walker to haul stuff. Pt likes horse riding. He twisted his left ankle when getting off the horse last week. Her reports 0-3/10 B ankles. Pt had an AFO that was prescribed 2-3 years ago from a neurologist at [facility] and he did not like it. It is annoying. Pt reports 1 fall in six months and it was two weeks ago. He thinks he stepped on a dog toy. He rescued a pit mix . Pt just ordered some supplements including magnesium. Prior Treatments and Tests PT, AFO, testing, oral medications Treatment Goals Patient/Caregiver Goals To get rid of pain and buring sensation. PT-OP-C Subjective Start: 05/25/21 12:10 Freq: Status: Active Protocol: Document 06/13/21 12:17 MB (Rec: 06/13/21 13:07 MB [id number]) OP-PT Subjective Patient Comments Patient Comments Pt states that he is using his QC at home and he doesn't like it. He trips over it. He did not give handout about hurry cane to his DIL. He brings in his previous bent SPC today. He leaves for [place] on 06/16 and returns on 06/24. PT-OP-D Balance Start: 05/25/21 12:10 Freq: Status: Active Protocol: Document 05/26/21 09:45 MB (Rec: 05/26/21 16:27 MB [id number]) OP-PT Balance Assessment Sitting Balance Static Sitting Balance Ability Good Dynamic Sitting Balance Ability Fair Sitting Balance Comments UE support for MMT LEs Standing Balance Static Standing Balance Ability Fair Dynamic Standing Balance Ability Poor Standing Balance Comments When pt moves to bring his feet into Romberg, his has left foot drop positioning Balance Tests Romberg Romberg EO 30 sec, superv assist, cues to tip left toes in March Fall Scale Copyright Permission PT-OP-G Mobility & Gait Start: 05/25/21 12:10 Freq: Status: Active Protocol: Document 05/26/21 09:45 MB (Rec: 05/26/21 16:27 MB [id number]) OP Gait Assessment Gait Gait Assistance Required: Independent Distance (Feet) 50 Able to Maintain Weight Bearing Status Yes During Gait Assistive Devices Assistive Device Straight Cane Orthotic/Prosthetic Devices or Brace: No Gait Deviations General Gait Pattern Decreased Stride Length, Decreased Feet Clearance, Flexed Trunk,Step-to Gait,Wide Based Gait Factors Limiting Gait Function Factors Limiting Gait Function Abnormal Tonal Influences, Decreased Activity Tolerance, Decreased Sensation,Decreased Strength,Incoordination, Limited Range of Motion,Poor Balance Comments Gait Comments Pt gait trains with cane in right hand. He presents with functional foot drop left foot that is more noticeable when he gait trains without AD at end of eval. 50'x2 with cane in right hand and 10'x2 without AD. Increased Riley angle on the left, slow gait. Pt states that he does not wear socks because it affects his sensation. He wears velcro shoes. He presents with left greater than right LE mild erythema and edema. Pt has an AFO that he dislikes and does not yet but will bring in in future treatments. PT-OP-K Range of Motion Start: 05/25/21 12:10 Freq: Status: Active Protocol: Document 05/26/21 09:45 MB (Rec: 05/26/21 16:27 MB [id number]) Ankle and Foot Goniometric Range of Motion Ankle and Foot ROM Limitations Comments R foot with little active inversion in sitting when assessed. Left ankle has trace inversion and eversion and no DF. Also, decreased left great toe extension. Mild erythema and edema left foot. PT-OP-M Strength Start: 05/25/21 12:10 Freq: Status: Active Protocol: Document 05/26/21 09:45 MB (Rec: 05/26/21 16:27 MB [id number]) Hip Strength Hip Manual Muscle Testing Left Flexion (L2) 5 Normal Comments Pt sitting in chair for MMT Right Flexion (L2) 5 Normal Comments Pt sitting in chair for MMT Knee Strength Knee Manual Muscle Testing Left Flexion (S2) 5 Normal Extension (L3) 5 Normal Right Flexion (S2) 5 Normal Extension (L3) 5 Normal Ankle/Foot Strength Ankle and Foot Manual Muscle Testing Left Dorsiflexion (L4) 0 Zero Inversion 1 Trace Eversion (S1) 1 Trace Right Dorsiflexion (L4) 5 Normal Eversion (S1) 3 Fair Comments No real inversion when asked to perform Toe Strength Toe Manual Muscle Testing Left Great Toe Extension 2- Poor- Right Great Toe Extension 3+ Fair+ PT-OP-Q Treatments Start: 05/25/21 12:10 Freq: Status: Active Protocol: Document 06/13/21 12:17 MB (Rec: 06/13/21 13:07 MB [id number]) Cardio Equipment Recumbent Stepper (Sci-Fit) Duration (Minutes) 14 Resistance 3 Seat Position 10 Other LEs only Gait Training Gait Activity 6MWT Comments Pt gait trained 601 feet in 6 minutes today with SPC in right hand. He was able to keep a conversation and did not trip on SPC. He did not have AFO on left foot today. Used clinic cane and not his and he states it feels different Gait is slow with foot drop left with SPC in right hand with gait after 6MWT Neuro Re-Education Treatment Balance Activities Narrow AGUSTÍN Comments Pt in the corner in room and chair in front: Romberg EC 30 sec with increased sway; EO with slow head turns and increased sway Full tandem is challenging with right foot behind and he hits elbows into dillard Full tandem with left foot behind is more challenging Self-Care/Home Management Treatment Education Other Education Re-ed pt on difference between QC and hurrycane and showed him the handout that Cynthia gave him about hurrycane. Ed pt that he should not use the QC and should use his SPC until he gets a hurrycane. Ed pt in importance of being compliant with his HEP. He states that he likes coming to PT and won't do his exercises on his own. Did provide card for home strainer tender for him to consider checking with at d/c. PT-OP-T Assessment and Plan Start: 05/25/21 12:10 Freq: Status: Active Protocol: Document 06/13/21 12:17 MB (Rec: 06/13/21 13:07 MB [id number]) Physical Therapy Assessment Goals 2 Mcc Goal (LTG) Pt will perform progressive HEP with I including strengthening, balance and gait exercises to improve balance and gait by 06/30/21. LTG Duration 5 weeks 1 Studio Designer Goal (LTG) Pt will perform WNLs on Tinetti or TUG to reflect improved balance and decreased fall risk by 06/30/21. LTG Duration 5 weeks Assessment Summary Assessment Pt does not bring in hurrycane bottom and does not recall handout that PT sees CLASS A TRUCK DRIVER but in his folder about hurrycane last week after extensive ed about it. This shows that it is unlikely that he is being compliant with home recs and exercises. Pt himself verifies that he is not compliant about exercising on his own and states that he likes PT. PT ed pt that PT cannot continue because he likes it and is not compliant at home. PT offers suggestions and he is interested in personal assistant contact info. One more visit before he leaves for [place] . Will perform exercise review . Two more visits when he returns from [place]. Physical Therapy Plan Frequency and Duration Frequency of Treatment 2x/Week Duration of Treatment 5 weeks Plan of Care Start Date 05/26/21 Plan of Care End Date 06/30/21 Therapeutic Interventions Therapeutic Interventions Balance Training,Canalithic Repositioning,Coordination Training,Gait Training,Home Exercise Program,Joint Mobilizations,Manual Therapy, Neuromuscular Re-education, Orthotic/Prosthetic Management ,Patient/Caregiver Education, Self-Care/Home Management, Sensory Integration,Soft Tissue Mobilization,Taping, Therapeutic Activities, Therapeutic Exercises Modalities Cold Pack/Ice Massage,Hot Packs Next Visit Focus/Plan Next Note Type Treatment Note Next Visit Plan Recumbent elliptical, review HEP, consider writing out when to do which exercises as far as M/W/F or everyday, etc, 6MWT
--- NOTE | 2021-06-16 09:48 | PT.OTN ---
Current Diagnoses Other hereditary and idiopathic neuropathies (06/16/21) Foot drop, left foot (06/16/21) Physical Therapy Treatment Note PT-OP-A Visit Information Start: 05/25/21 12:10 Freq: Status: Active Protocol: Document 06/16/21 09:00 SP (Rec: 06/16/21 09:49 SP [id number]) Out-Patient Physical Therapy Visit Information Visit Information Visit Type Treatment Note Visit Note Medicare, H[employer] for Life 06/14 before KX SPT attended and provided cues throughout tx. Visit Start Time 09:00 Visit Stop Time 09:48 Total Visit Minutes 48 Visit Number 7 Number of APARTMENT MAINTENANCE Visits 1 Evaluation Information Evaluation Date 05/26/21 Precautions Precautions Fall risk PT-OP-B Current Condition Start: 05/25/21 12:10 Freq: Status: Active Protocol: Document 05/26/21 09:45 MB (Rec: 05/26/21 10:14 MB [id number]) Current Condition History of Current Condition Onset Date 2014 Current Complaints B feet pain and neuropathy, left ankle rolling and foot drop History of Current Condition PMH includes back surgery, angioplasty with stent, prostate surgery, peripheral neuropathy and left foot drop, statin intolerance, 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 Pt has had PT on and off since 2014 when the neuropathy started after laminectomy. He most recently had PT at [facility] this year and the course was short. He was given some exercises. The neuropathy started on the left and is now across both feet and it wakes him up at night. He is receiving oral medications for neuropathy including alpha lipoic acid, N-acetylcysteine, B12 and vitamin D. His DIL is very helpful with going to doctors' appointments, medications and him working on his diet. Pt lives by himself. He only has a couple of steps. He is building a new house that will have an elevator. His land will adjoin his son's place and he will get a golf cart. He is using his cane in his right hand. He occasionally uses the walker to haul stuff. Pt likes horse riding. He twisted his left ankle when getting off the horse last week. Her reports 0-3/10 B ankles. Pt had an AFO that was prescribed 2-3 years ago from a neurologist at [facility] and he did not like it. It is annoying. Pt reports 1 fall in six months and it was two weeks ago. He thinks he stepped on a dog toy. He rescued a pit mix . Pt just ordered some supplements including magnesium. Prior Treatments and Tests PT, AFO, testing, oral medications Treatment Goals Patient/Caregiver Goals To get rid of pain and buring sensation. PT-OP-C Subjective Start: 05/25/21 12:10 Freq: Status: Active Protocol: Document 06/16/21 09:00 SP (Rec: 06/16/21 09:49 SP [id number]) OP-PT Subjective Patient Comments Patient Comments Pt states not performing exercises at home yet. Pt arrived with small stationary standing base on cane but says ordered a hurry cane as well for use. He is unsure if daughter ordered the DF ankle strap for assist with foot clearance. PT-OP-D Balance Start: 05/25/21 12:10 Freq: Status: Active Protocol: Document 05/26/21 09:45 MB (Rec: 05/26/21 16:27 MB [id number]) OP-PT Balance Assessment Sitting Balance Static Sitting Balance Ability Good Dynamic Sitting Balance Ability Fair Sitting Balance Comments UE support for MMT LEs Standing Balance Static Standing Balance Ability Fair Dynamic Standing Balance Ability Poor Standing Balance Comments When pt moves to bring his feet into Romberg, his has left foot drop positioning Balance Tests Romberg Romberg EO 30 sec, superv assist, cues to tip left toes in March Fall Scale Copyright Permission PT-OP-G Mobility & Gait Start: 05/25/21 12:10 Freq: Status: Active Protocol: Document 05/26/21 09:45 MB (Rec: 05/26/21 16:27 MB [id number]) OP Gait Assessment Gait Gait Assistance Required: Independent Distance (Feet) 50 Able to Maintain Weight Bearing Status Yes During Gait Assistive Devices Assistive Device Straight Cane Orthotic/Prosthetic Devices or Brace: No Gait Deviations General Gait Pattern Decreased Stride Length, Decreased Feet Clearance, Flexed Trunk,Step-to Gait,Wide Based Gait Factors Limiting Gait Function Factors Limiting Gait Function Abnormal Tonal Influences, Decreased Activity Tolerance, Decreased Sensation,Decreased Strength,Incoordination, Limited Range of Motion,Poor Balance Comments Gait Comments Pt gait trains with cane in right hand. He presents with functional foot drop left foot that is more noticeable when he gait trains without AD at end of eval. 50'x2 with cane in right hand and 10'x2 without AD. Increased Riley angle on the left, slow gait. Pt states that he does not wear socks because it affects his sensation. He wears velcro shoes. He presents with left greater than right LE mild erythema and edema. Pt has an AFO that he dislikes and does not yet but will bring in in future treatments. PT-OP-K Range of Motion Start: 05/25/21 12:10 Freq: Status: Active Protocol: Document 05/26/21 09:45 MB (Rec: 05/26/21 16:27 MB [id number]) Ankle and Foot Goniometric Range of Motion Ankle and Foot ROM Limitations Comments R foot with little active inversion in sitting when assessed. Left ankle has trace inversion and eversion and no DF. Also, decreased left great toe extension. Mild erythema and edema left foot. PT-OP-M Strength Start: 05/25/21 12:10 Freq: Status: Active Protocol: Document 05/26/21 09:45 MB (Rec: 05/26/21 16:27 MB [id number]) Hip Strength Hip Manual Muscle Testing Left Flexion (L2) 5 Normal Comments Pt sitting in chair for MMT Right Flexion (L2) 5 Normal Comments Pt sitting in chair for MMT Knee Strength Knee Manual Muscle Testing Left Flexion (S2) 5 Normal Extension (L3) 5 Normal Right Flexion (S2) 5 Normal Extension (L3) 5 Normal Ankle/Foot Strength Ankle and Foot Manual Muscle Testing Left Dorsiflexion (L4) 0 Zero Inversion 1 Trace Eversion (S1) 1 Trace Right Dorsiflexion (L4) 5 Normal Eversion (S1) 3 Fair Comments No real inversion when asked to perform Toe Strength Toe Manual Muscle Testing Left Great Toe Extension 2- Poor- Right Great Toe Extension 3+ Fair+ PT-OP-Q Treatments Start: 05/25/21 12:10 Freq: Status: Active Protocol: Document 06/16/21 09:00 SP (Rec: 06/16/21 09:49 SP [id number]) Cardio Equipment Recumbent Elliptical (TearSolutions) Duration (Minutes) 15 Resistance 1-3 Seat Position 11 Other 35-40 RPMs, 779 total steps: LE only Therapeutic Exercises Sitting Exercises lumbar flexion stretch Sitting Exercise Name forward and off to each LE ( see HO) Side bilateral Resistance added as needed for lumbar tightness Reps/Minutes 20s x2 Comments good feedback response for lumbar side stitches LAQ and AP with band around ankles Sitting Exercise Name Reviewed HEP Side bilateral Equipment Used Level 2 band around ankles Reps/Minutes 3x10 Comments cued pause 2 sec for quad facilitation- good form Clams with band around knees Sitting Exercise Name reviewed HEP Side bilateral Equipment Used Level 2 band around knees (red Reps/Minutes 2 sec hold x10 Comments squeeze glutes first Sit to stands Sitting Exercise Name reviewed HEP Equipment Used 18 chair Reps/Minutes x10 reps Comments cued hip hinge forward to decrease retro LOB plop Standing Exercises self STMs Standing Exercise Name paraspinals, QL Side bilateral Equipment Used tennis ball at wall Reps/Minutes discussed not performed today with hand out review Comments verbalized performs if needed at home Gait Training Gait Activity 6MWT Comments Pt gait trained 4 laps 185x4= (timer issues, not timed) around clinic today with small base SPC/ hurry cane in right hand . He was able to keep a conversation and did not trip on hurry cane, 1 wt shift deviation to R first lap due to long stride on L and slow cane transition but self recovery. He did not have AFO on left foot today, with foot drop left with SPC in right hand. Neuro Re-Education Treatment Balance Activities Narrow AGUSTÍN Details semi tandem Reps/Duration //bars (counter at home) Comments Romberg EC 27 sec with increased sway; EO with slow head turns and increased sway but self recovery Tandem Stance Surface firm Equipment // bars Reps/Duration 3 reps each side Comments 27 sec before contact PT-OP-T Assessment and Plan Start: 05/25/21 12:10 Freq: Status: Active Protocol: Document 06/16/21 09:00 SP (Rec: 06/16/21 09:49 SP [id number]) Physical Therapy Assessment Goals 2 Fci Goal (LTG) Pt will perform progressive HEP with I including strengthening, balance and gait exercises to improve balance and gait by 06/30/21. LTG Duration 5 weeks 1 Deckhand Tuna Boat Goal (LTG) Pt will perform WNLs on Tinetti or TUG to reflect improved balance and decreased fall risk by 06/30/21. 10/21/21 TUs, 16s, 17s LTG Duration 5 weeks Assessment Summary Assessment Pt reports not performing HEP, will do more when out of town , verbalized understanding to continue at home for progression of strength and functional gait. Improved gait using hurry attachment this tx, cued cane in RUE patterning with LLE less stride on corners improved L lateral lean and self corrections noted. Pt required cues for set up at times for HEP. Balance at counter improve semi tandem vs tandem, performs at counter at home, up ot 27 sec before contact requirec this tx. Unable maintain balance with head turns, ed for not peforming head turns this time. Physical Therapy Plan Frequency and Duration Frequency of Treatment 2x/Week Duration of Treatment 5 weeks Plan of Care Start Date 05/26/21 Plan of Care End Date 06/30/21 Therapeutic Interventions Therapeutic Interventions Balance Training,Canalithic Repositioning,Coordination Training,Gait Training,Home Exercise Program,Joint Mobilizations,Manual Therapy, Neuromuscular Re-education, Orthotic/Prosthetic Management ,Patient/Caregiver Education, Self-Care/Home Management, Sensory Integration,Soft Tissue Mobilization,Taping, Therapeutic Activities, Therapeutic Exercises Modalities Cold Pack/Ice Massage,Hot Packs Next Visit Focus/Plan Next Note Type Treatment Note Next Visit Plan Continue HEP review. Recumbent elliptical, continiue writing cueing on his HEP when to do which exercises as far as M/W/ F or everyday, etc, 6MWT
--- NOTE | 2021-06-28 13:00 | PT.OTN ---
Current Diagnoses Other hereditary and idiopathic neuropathies (06/28/21) Foot drop, left foot (06/28/21) Physical Therapy Treatment Note PT-OP-A Visit Information Start: 05/25/21 12:10 Freq: Status: Active Protocol: Document 06/28/21 12:19 SP (Rec: 06/28/21 13:10 SP [id number]) Out-Patient Physical Therapy Visit Information Visit Information Visit Type Treatment Note Visit Note Medicare, for Life 07/15 before KX SPTA Amandeep assisted GRAIN COMMODITY MANAGER Cynthia in treatment. Visit Start Time 12:17 Visit Stop Time 13:00 Total Visit Minutes 43 Visit Number 8 Number of GRAIN COMMODITY MANAGER Visits 2 Precautions Precautions Fall risk PT-OP-B Current Condition Start: 05/25/21 12:10 Freq: Status: Active Protocol: Document 05/26/21 09:45 MB (Rec: 05/26/21 10:14 MB [id number]) Current Condition History of Current Condition Onset Date 2014 Current Complaints B feet pain and neuropathy, left ankle rolling and foot drop History of Current Condition PMH includes back surgery, angioplasty with stent, prostate surgery, peripheral neuropathy and left foot drop, statin intolerance, 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 Pt has had PT on and off since 2014 when the neuropathy started after laminectomy. He most recently had PT at [facility] this year and the course was short. He was given some exercises. The neuropathy started on the left and is now across both feet and it wakes him up at night. He is receiving oral medications for neuropathy including alpha lipoic acid, N-acetylcysteine, B12 and vitamin D. His DIL is very helpful with going to doctors' appointments, medications and him working on his diet. Pt lives by himself. He only has a couple of steps. He is building a new house that will have an elevator. His land will adjoin his son's place and he will get a golf cart. He is using his cane in his right hand. He occasionally uses the walker to haul stuff. Pt likes horse riding. He twisted his left ankle when getting off the horse last week. Her reports 0-3/10 B ankles. Pt had an AFO that was prescribed 2-3 years ago from a neurologist at [facility] and he did not like it. It is annoying. Pt reports 1 fall in six months and it was two weeks ago. He thinks he stepped on a dog toy. He rescued a pit mix . Pt just ordered some supplements including magnesium. Prior Treatments and Tests PT, AFO, testing, oral medications Treatment Goals Patient/Caregiver Goals To get rid of pain and buring sensation. PT-OP-C Subjective Start: 05/25/21 12:10 Freq: Status: Active Protocol: Document 06/28/21 12:19 SP (Rec: 06/28/21 13:10 SP [id number]) OP-PT Subjective Patient Comments Patient Comments Pt reports not doing HEP while on vacation in [place]. Reports increased activity level with family in [place] on [place] acre ranch than at home locally. PT-OP-D Balance Start: 05/25/21 12:10 Freq: Status: Active Protocol: Document 05/26/21 09:45 MB (Rec: 05/26/21 16:27 MB [id number]) OP-PT Balance Assessment Sitting Balance Static Sitting Balance Ability Good Dynamic Sitting Balance Ability Fair Sitting Balance Comments UE support for MMT LEs Standing Balance Static Standing Balance Ability Fair Dynamic Standing Balance Ability Poor Standing Balance Comments When pt moves to bring his feet into Romberg, his has left foot drop positioning Balance Tests Romberg Romberg EO 30 sec, superv assist, cues to tip left toes in March Fall Scale Copyright Permission PT-OP-G Mobility & Gait Start: 05/25/21 12:10 Freq: Status: Active Protocol: Document 05/26/21 09:45 MB (Rec: 05/26/21 16:27 MB [id number]) OP Gait Assessment Gait Gait Assistance Required: Independent Distance (Feet) 50 Able to Maintain Weight Bearing Status Yes During Gait Assistive Devices Assistive Device Straight Cane Orthotic/Prosthetic Devices or Brace: No Gait Deviations General Gait Pattern Decreased Stride Length, Decreased Feet Clearance, Flexed Trunk,Step-to Gait,Wide Based Gait Factors Limiting Gait Function Factors Limiting Gait Function Abnormal Tonal Influences, Decreased Activity Tolerance, Decreased Sensation,Decreased Strength,Incoordination, Limited Range of Motion,Poor Balance Comments Gait Comments Pt gait trains with cane in right hand. He presents with functional foot drop left foot that is more noticeable when he gait trains without AD at end of eval. 50'x2 with cane in right hand and 10'x2 without AD. Increased Riley angle on the left, slow gait. Pt states that he does not wear socks because it affects his sensation. He wears velcro shoes. He presents with left greater than right LE mild erythema and edema. Pt has an AFO that he dislikes and does not yet but will bring in in future treatments. PT-OP-K Range of Motion Start: 05/25/21 12:10 Freq: Status: Active Protocol: Document 05/26/21 09:45 MB (Rec: 05/26/21 16:27 MB [id number]) Ankle and Foot Goniometric Range of Motion Ankle and Foot ROM Limitations Comments R foot with little active inversion in sitting when assessed. Left ankle has trace inversion and eversion and no DF. Also, decreased left great toe extension. Mild erythema and edema left foot. PT-OP-M Strength Start: 05/25/21 12:10 Freq: Status: Active Protocol: Document 05/26/21 09:45 MB (Rec: 05/26/21 16:27 MB [id number]) Hip Strength Hip Manual Muscle Testing Left Flexion (L2) 5 Normal Comments Pt sitting in chair for MMT Right Flexion (L2) 5 Normal Comments Pt sitting in chair for MMT Knee Strength Knee Manual Muscle Testing Left Flexion (S2) 5 Normal Extension (L3) 5 Normal Right Flexion (S2) 5 Normal Extension (L3) 5 Normal Ankle/Foot Strength Ankle and Foot Manual Muscle Testing Left Dorsiflexion (L4) 0 Zero Inversion 1 Trace Eversion (S1) 1 Trace Right Dorsiflexion (L4) 5 Normal Eversion (S1) 3 Fair Comments No real inversion when asked to perform Toe Strength Toe Manual Muscle Testing Left Great Toe Extension 2- Poor- Right Great Toe Extension 3+ Fair+ PT-OP-Q Treatments Start: 05/25/21 12:10 Freq: Status: Active Protocol: Document 06/28/21 12:19 SP (Rec: 06/28/21 13:10 SP [id number]) Cardio Equipment Recumbent Elliptical (Biodex) Duration (Minutes) 8 Resistance 4 Seat Position 11 Other 40-45 RPM, 622 total steps Therapeutic Exercises Sitting Exercises LAQ and AP with band around ankles Sitting Exercise Name Reviewed HEP Side bilateral Equipment Used red TB around ankles. Reps/Minutes 3x10 ea Comments good form, no breaks. Clams with band around knees Sitting Exercise Name reviewed HEP Side bilateral Equipment Used red band below knees Reps/Minutes 1 sec hold x15 Sit to stands Sitting Exercise Name reviewed HEP Equipment Used 18 chair Reps/Minutes x20 Comments cued for hip hinge foreward to imprive eccentric control sitting. Gait Training Gait Activity 6MWT Comments 815 feet in 6 minutes with SPC . Became SOB as distance progressed, cues for upright posture, head posture to improve breathing and balance. Neuro Re-Education Treatment Balance Activities Narrow AGUSTÍN Details semi tandem Surface firm Reps/Duration wall rail (counter at home) Comments Romberg EC 30 sec with minimal sway. Semi-tandem 45 sec with each LE forward. No sway with LLE forward. Moderate sway with RLE forward, but able to self-recover. PT-OP-T Assessment and Plan Start: 05/25/21 12:10 Freq: Status: Active Protocol: Document 06/28/21 12:19 SP (Rec: 06/28/21 13:10 SP [id number]) Physical Therapy Assessment Goals 2 Artificial Plastic Eye Maker Goal (LTG) Pt will perform progressive HEP with I including strengthening, balance and gait exercises to improve balance and gait by 06/30/21. LTG Duration 5 weeks 1 Artificial Plastic Eye Maker Goal (LTG) Pt will perform WNLs on Tinetti or TUG to reflect improved balance and decreased fall risk by 06/30/21. 06/16/21 TUs, 16s, 17s LTG Duration 5 weeks Progress Towards Goals Progress Towards Goals Progressing Toward Goals Progress Comments Pt. was able to perform 6MWT, with approximately 200 extra feet travelled. Assessment Summary Assessment Pt. demonstrated improved strength, endurance,and balance today with increased resistance on Biodex, improved reps and form with STS, improved balance in semi- tandem and Romberg up to 30 sec , and approximately 200 extra feet travelled on 6MWT. Pt. strongly encouraged to do HEP at home, as he has self- reported doing none of his exercises. He was provided a flow sheet to record his HEP exercises for assist self accountable, and instructed to bring back with him to next session. Physical Therapy Plan Next Visit Focus/Plan Next Note Type Treatment Note Next Visit Plan Next appt w/ PT, possible DC. Bike, HEP, gait 6MWT.
--- NOTE | 2021-06-30 14:26 | PT.OTN ---
Current Diagnoses Other hereditary and idiopathic neuropathies (06/30/21) Foot drop, left foot (06/30/21) Physical Therapy Treatment Note PT-OP-A Visit Information Start: 05/25/21 12:10 Freq: Status: Active Protocol: Document 06/30/21 10:32 MB (Rec: 06/30/21 11:18 MB [id number]) Out-Patient Physical Therapy Visit Information Visit Information Visit Type Progress Note Visit Note Medicare, for Life 08/14 before KX Visit Start Time 10:32 Visit Stop Time 11:15 Total Visit Minutes 43 Visit Number 9 Number of INSPECTOR AUTOMATIC TYPEWRITER Visits 0 Evaluation Information Evaluation Date 05/26/21 Precautions Precautions Fall risk PT-OP-B Current Condition Start: 05/25/21 12:10 Freq: Status: Active Protocol: Document 05/26/21 09:45 MB (Rec: 05/26/21 10:14 MB [id number]) Current Condition History of Current Condition Onset Date 2014 Current Complaints B feet pain and neuropathy, left ankle rolling and foot drop History of Current Condition PMH includes back surgery, angioplasty with stent, prostate surgery, peripheral neuropathy and left foot drop, statin intolerance, 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 Pt has had PT on and off since 2014 when the neuropathy started after laminectomy. He most recently had PT at [facility] this year and the course was short. He was given some exercises. The neuropathy started on the left and is now across both feet and it wakes him up at night. He is receiving oral medications for neuropathy including alpha lipoic acid, N-acetylcysteine, B12 and vitamin D. His DIL is very helpful with going to doctors' appointments, medications and him working on his diet. Pt lives by himself. He only has a couple of steps. He is building a new house that will have an elevator. His land will adjoin his son's place and he will get a golf cart. He is using his cane in his right hand. He occasionally uses the walker to haul stuff. Pt likes horse riding. He twisted his left ankle when getting off the horse last week. Her reports 0-3/10 B ankles. Pt had an AFO that was prescribed 2-3 years ago from a neurologist at [facility] and he did not like it. It is annoying. Pt reports 1 fall in six months and it was two weeks ago. He thinks he stepped on a dog toy. He rescued a pit mix . Pt just ordered some supplements including magnesium. Prior Treatments and Tests PT, AFO, testing, oral medications Treatment Goals Patient/Caregiver Goals To get rid of pain and buring sensation. PT-OP-C Subjective Start: 05/25/21 12:10 Freq: Status: Active Protocol: Document 06/30/21 10:32 MB (Rec: 06/30/21 11:18 MB [id number]) OP-PT Subjective Patient Comments Patient Comments Pt states that he is occ doing his exercises. He would like to keep coming to PT as it is helpful. He does state that the exercise list handout was helpful and he did his exercises yesterday. PT-OP-D Balance Start: 05/25/21 12:10 Freq: Status: Active Protocol: Document 05/26/21 09:45 MB (Rec: 05/26/21 16:27 MB [id number]) OP-PT Balance Assessment Sitting Balance Static Sitting Balance Ability Good Dynamic Sitting Balance Ability Fair Sitting Balance Comments UE support for MMT LEs Standing Balance Static Standing Balance Ability Fair Dynamic Standing Balance Ability Poor Standing Balance Comments When pt moves to bring his feet into Romberg, his has left foot drop positioning Balance Tests Romberg Romberg EO 30 sec, superv assist, cues to tip left toes in March Fall Scale Copyright Permission PT-OP-G Mobility & Gait Start: 05/25/21 12:10 Freq: Status: Active Protocol: Document 05/26/21 09:45 MB (Rec: 05/26/21 16:27 MB [id number]) OP Gait Assessment Gait Gait Assistance Required: Independent Distance (Feet) 50 Able to Maintain Weight Bearing Status Yes During Gait Assistive Devices Assistive Device Straight Cane Orthotic/Prosthetic Devices or Brace: No Gait Deviations General Gait Pattern Decreased Stride Length, Decreased Feet Clearance, Flexed Trunk,Step-to Gait,Wide Based Gait Factors Limiting Gait Function Factors Limiting Gait Function Abnormal Tonal Influences, Decreased Activity Tolerance, Decreased Sensation,Decreased Strength,Incoordination, Limited Range of Motion,Poor Balance Comments Gait Comments Pt gait trains with cane in right hand. He presents with functional foot drop left foot that is more noticeable when he gait trains without AD at end of eval. 50'x2 with cane in right hand and 10'x2 without AD. Increased Riley angle on the left, slow gait. Pt states that he does not wear socks because it affects his sensation. He wears velcro shoes. He presents with left greater than right LE mild erythema and edema. Pt has an AFO that he dislikes and does not yet but will bring in in future treatments. PT-OP-K Range of Motion Start: 05/25/21 12:10 Freq: Status: Active Protocol: Document 05/26/21 09:45 MB (Rec: 05/26/21 16:27 MB [id number]) Ankle and Foot Goniometric Range of Motion Ankle and Foot ROM Limitations Comments R foot with little active inversion in sitting when assessed. Left ankle has trace inversion and eversion and no DF. Also, decreased left great toe extension. Mild erythema and edema left foot. PT-OP-M Strength Start: 05/25/21 12:10 Freq: Status: Active Protocol: Document 05/26/21 09:45 MB (Rec: 05/26/21 16:27 MB [id number]) Hip Strength Hip Manual Muscle Testing Left Flexion (L2) 5 Normal Comments Pt sitting in chair for MMT Right Flexion (L2) 5 Normal Comments Pt sitting in chair for MMT Knee Strength Knee Manual Muscle Testing Left Flexion (S2) 5 Normal Extension (L3) 5 Normal Right Flexion (S2) 5 Normal Extension (L3) 5 Normal Ankle/Foot Strength Ankle and Foot Manual Muscle Testing Left Dorsiflexion (L4) 0 Zero Inversion 1 Trace Eversion (S1) 1 Trace Right Dorsiflexion (L4) 5 Normal Eversion (S1) 3 Fair Comments No real inversion when asked to perform Toe Strength Toe Manual Muscle Testing Left Great Toe Extension 2- Poor- Right Great Toe Extension 3+ Fair+ PT-OP-Q Treatments Start: 05/25/21 12:10 Freq: Status: Active Protocol: Document 06/30/21 10:32 MB (Rec: 06/30/21 11:18 MB [id number]) Cardio Equipment Recumbent Elliptical (Property Partner) Duration (Minutes) 19 Resistance 1-4 Seat Position 11 Other LEs only Therapeutic Exercises Sitting Exercises Sit to stands Comments 10 reps without UE support in 30 sec today Gait Training Gait Activity 6MWT Comments 06/30/21: Pt gait trains 740 feet in 6 minutes without standing or sitting rest break . This is improvement in activity tolerance. His gait is slow and he has left foot drop. He has not yet gotten strap tool for left shoe that he described weeks ago to INSPECTOR AUTOMATIC TYPEWRITER PT-OP-T Assessment and Plan Start: 05/25/21 12:10 Freq: Status: Active Protocol: Document 06/30/21 10:32 MB (Rec: 06/30/21 11:18 MB [id number]) Physical Therapy Assessment Goals 4 Fpc Goal (LTG) Pt will perform 12 reps sit to stand without UE support in 30 sec to improve functional transfers and strength by . 06/30/21: Pt performs 10 reps without UE support in mesh chair with no arms. LTG Duration 4 weeks 3 Adventure Education Teacher Goal (LTG) Pt will gait train at least 900 feet in 6 minutes with SPC in right hand to improve community ambulation by . 06/30/21: Pt gait trains 740 feet in 6 minutes without standing or sitting rest break . This is improvement in activity tolerance. LTG Duration 4 weeks 2 Adventure Education Teacher Goal (LTG) Pt will perform progressive HEP with I including strengthening, balance and gait exercises to improve balance and gait by 07/16/21. 06/30/21: Pt has been intermittently compliant with HEP LTG Duration 4 weeks 1 Adventure Education Teacher Goal (LTG) Pt will perform WNLs on Tinetti or TUG to reflect improved balance and decreased fall risk by 07/26/21. 06/16/21 TUs, 16s, 17s LTG Duration 4 weeks Progress Towards Goals Progress Towards Goals Progressing Toward Goals Assessment Summary Assessment Pt has made some progress towards gait and sit to stands since starting PT. He has not been very compliant with HEP, is not interested in going to pool gym to work on recumbent stepper, has not followed-up with getting DF strap for left shoe to help with foot clearance and has gone OOT to [place] during PT course. This date , pt con't to verbalize that he really wants to con't with OPPT despite PT's plan to d/c this date d/t decreased follow -through with home program. Since he has made some progress towards goals and after he promises to perform HEP more regularly, PT will trial 1 more month of PT. Aniticipate he will need DIL and home exercise person to come to his house to ensure compliance at d/c. Physical Therapy Plan Frequency and Duration Frequency of Treatment 2x/Week Duration of Treatment 4 weeks Plan of Care Start Date 06/30/21 Plan of Care End Date 07/26/21 Therapeutic Interventions Therapeutic Interventions Balance Training,Canalithic Repositioning,Gait Training, Home Exercise Program,Manual Therapy,Neuromuscular Re- education,Orthotic/Prosthetic Management,Patient/Caregiver Education,Self-Care/Home Management,Soft Tissue Mobilization,Therapeutic Activities,Therapeutic Exercises Modalities Cold Pack/Ice Massage,Hot Packs Next Visit Focus/Plan Next Note Type Treatment Note Next Visit Plan Pt to bring in his handouts and review/progress exercises, balance, gait Recommend DIL come in for a full treatment to review his HEP, discuss his questions about getting a recumbent stepper and about hiring Mellisa, cyber transport systems specialist, to come to the pt's house to help with exercises 2x/wk
--- NOTE | 2021-06-30 14:26 | PT.OPPOC ---
Physical, Occupational & Speech Therapy At [facility] Current Diagnoses Other hereditary and idiopathic neuropathies (06/30/21) Foot drop, left foot (06/30/21) Visit Care Team Role Provider Type Osbaldo Cuevas MD Family Provider Physician Primary Care Provider Specialty: Internal Medicine Address: [address] [place] [address], [address], [address] Email: [email or web address] Myles Arndt MD Attending Provider Non-Staff Referring Provider Specialty: Neurology Address: [address] [place], [address] Email: Plan Of Care PT-OP-T Assessment and Plan Start: 05/25/21 12:10 Freq: Status: Active Protocol: Document 06/30/21 10:32 MB (Rec: 06/30/21 11:18 MB [id number]) Physical Therapy Assessment Goals 4 Platform Consultant Goal (LTG) Pt will perform 12 reps sit to stand without UE support in 30 sec to improve functional transfers and strength by . 06/30/21: Pt performs 10 reps without UE support in mesh chair with no arms. LTG Duration 4 weeks 3 Chcf Goal (LTG) Pt will gait train at least 900 feet in 6 minutes with SPC in right hand to improve community ambulation by . 06/30/21: Pt gait trains 740 feet in 6 minutes without standing or sitting rest break . This is improvement in activity tolerance. LTG Duration 4 weeks 2 Chcf Goal (LTG) Pt will perform progressive HEP with I including strengthening, balance and gait exercises to improve balance and gait by 07/16/21. 06/30/21: Pt has been intermittently compliant with HEP LTG Duration 4 weeks 1 Platform Consultant Goal (LTG) Pt will perform WNLs on Tinetti or TUG to reflect improved balance and decreased fall risk by 07/26/21. 06/16/21 TUs, 16s, 17s LTG Duration 4 weeks Progress Towards Goals Progress Towards Goals Progressing Toward Goals Assessment Summary Assessment Pt has made some progress towards gait and sit to stands since starting PT. He has not been very compliant with HEP, is not interested in going to pool gym to work on recumbent stepper, has not followed-up with getting DF strap for left shoe to help with foot clearance and has gone OOT to [place] during PT course. This date , pt con't to verbalize that he really wants to con't with OPPT despite PT's plan to d/c this date d/t decreased follow -through with home program. Since he has made some progress towards goals and after he promises to perform HEP more regularly, PT will trial 1 more month of PT. Aniticipate he will need DIL and home exercise person to come to his house to ensure compliance at d/c. Physical Therapy Plan Frequency and Duration Frequency of Treatment 2x/Week Duration of Treatment 4 weeks Plan of Care Start Date 06/30/21 Plan of Care End Date 07/26/21 Therapeutic Interventions Therapeutic Interventions Balance Training,Canalithic Repositioning,Gait Training, Home Exercise Program,Manual Therapy,Neuromuscular Re- education,Orthotic/Prosthetic Management,Patient/Caregiver Education,Self-Care/Home Management,Soft Tissue Mobilization,Therapeutic Activities,Therapeutic Exercises Modalities Cold Pack/Ice Massage,Hot Packs Next Visit Focus/Plan Next Note Type Treatment Note Next Visit Plan Pt to bring in his handouts and review/progress exercises, balance, gait Recommend DIL come in for a full treatment to review his HEP, discuss his questions about getting a recumbent stepper and about hiring Mellisa, information systems security specialist, to come to the pt's house to help with exercises 2x/wk Plan of Care Dates Plan of Care Start Date 06/30/21 Plan of Care End Date 07/26/21 Electronically Signed by: Fanny Gomez, PT 06/30/21 1426 Please Sign and Return: I have reviewed this Plan of Care and certify that the skilled therapy services above are required to meet the patient?s needs. Physician Signature Date Printed Name and Credentials Clinical Instructor Signature Printed Name and Credentials
--- NOTE | 2021-07-04 14:33 | PT.OTN ---
Current Diagnoses Other hereditary and idiopathic neuropathies (07/04/21) Foot drop, left foot (07/04/21) Physical Therapy Treatment Note PT-OP-A Visit Information Start: 05/25/21 12:10 Freq: Status: Active Protocol: Document 07/04/21 13:48 ER (Rec: 07/04/21 14:33 ER [id number]) Out-Patient Physical Therapy Visit Information Visit Information Visit Type Treatment Note Visit Note Medicare, for Life before KX SPTA Amandeep lead treatment under direct supervision and instructioning of CHEF MANAGER Cynthia throughout tx. Visit Start Time 13:48 Visit Stop Time 14:30 Total Visit Minutes 42 Visit Number 10 Number of CHEF MANAGER Visits 1 Evaluation Information Evaluation Date 05/26/21 Precautions Precautions Fall risk PT-OP-B Current Condition Start: 05/25/21 12:10 Freq: Status: Active Protocol: Document 05/26/21 09:45 MB (Rec: 05/26/21 10:14 MB [id number]) Current Condition History of Current Condition Onset Date 2014 Current Complaints B feet pain and neuropathy, left ankle rolling and foot drop History of Current Condition PMH includes back surgery, angioplasty with stent, prostate surgery, peripheral neuropathy and left foot drop, statin intolerance, 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 Pt has had PT on and off since 2014 when the neuropathy started after laminectomy. He most recently had PT at [facility] this year and the course was short. He was given some exercises. The neuropathy started on the left and is now across both feet and it wakes him up at night. He is receiving oral medications for neuropathy including alpha lipoic acid, N-acetylcysteine, B12 and vitamin D. His DIL is very helpful with going to doctors' appointments, medications and him working on his diet. Pt lives by himself. He only has a couple of steps. He is building a new house that will have an elevator. His land will adjoin his son's place and he will get a golf cart. He is using his cane in his right hand. He occasionally uses the walker to haul stuff. Pt likes horse riding. He twisted his left ankle when getting off the horse last week. Her reports 0-3/10 B ankles. Pt had an AFO that was prescribed 2-3 years ago from a neurologist at [facility] and he did not like it. It is annoying. Pt reports 1 fall in six months and it was two weeks ago. He thinks he stepped on a dog toy. He rescued a pit mix . Pt just ordered some supplements including magnesium. Prior Treatments and Tests PT, AFO, testing, oral medications Treatment Goals Patient/Caregiver Goals To get rid of pain and buring sensation. PT-OP-C Subjective Start: 05/25/21 12:10 Freq: Status: Active Protocol: Document 07/04/21 13:48 ER (Rec: 07/04/21 14:33 ER [id number]) OP-PT Subjective Patient Comments Patient Comments Pt said he did not feel well today. Said that he had had L hip and R knee pain intermittently over the last few days. Describes pain as an electric shock sensation, followed by no strength until he got hip into another position. Knee pain is characterised as achy. PT-OP-D Balance Start: 05/25/21 12:10 Freq: Status: Active Protocol: Document 05/26/21 09:45 MB (Rec: 05/26/21 16:27 MB [id number]) OP-PT Balance Assessment Sitting Balance Static Sitting Balance Ability Good Dynamic Sitting Balance Ability Fair Sitting Balance Comments UE support for MMT LEs Standing Balance Static Standing Balance Ability Fair Dynamic Standing Balance Ability Poor Standing Balance Comments When pt moves to bring his feet into Romberg, his has left foot drop positioning Balance Tests Romberg Romberg EO 30 sec, superv assist, cues to tip left toes in March Fall Scale Copyright Permission PT-OP-G Mobility & Gait Start: 05/25/21 12:10 Freq: Status: Active Protocol: Document 05/26/21 09:45 MB (Rec: 05/26/21 16:27 MB [id number]) OP Gait Assessment Gait Gait Assistance Required: Independent Distance (Feet) 50 Able to Maintain Weight Bearing Status Yes During Gait Assistive Devices Assistive Device Straight Cane Orthotic/Prosthetic Devices or Brace: No Gait Deviations General Gait Pattern Decreased Stride Length, Decreased Feet Clearance, Flexed Trunk,Step-to Gait,Wide Based Gait Factors Limiting Gait Function Factors Limiting Gait Function Abnormal Tonal Influences, Decreased Activity Tolerance, Decreased Sensation,Decreased Strength,Incoordination, Limited Range of Motion,Poor Balance Comments Gait Comments Pt gait trains with cane in right hand. He presents with functional foot drop left foot that is more noticeable when he gait trains without AD at end of eval. 50'x2 with cane in right hand and 10'x2 without AD. Increased Riley angle on the left, slow gait. Pt states that he does not wear socks because it affects his sensation. He wears velcro shoes. He presents with left greater than right LE mild erythema and edema. Pt has an AFO that he dislikes and does not yet but will bring in in future treatments. PT-OP-K Range of Motion Start: 05/25/21 12:10 Freq: Status: Active Protocol: Document 05/26/21 09:45 MB (Rec: 05/26/21 16:27 MB [id number]) Ankle and Foot Goniometric Range of Motion Ankle and Foot ROM Limitations Comments R foot with little active inversion in sitting when assessed. Left ankle has trace inversion and eversion and no DF. Also, decreased left great toe extension. Mild erythema and edema left foot. PT-OP-M Strength Start: 05/25/21 12:10 Freq: Status: Active Protocol: Document 05/26/21 09:45 MB (Rec: 05/26/21 16:27 MB [id number]) Hip Strength Hip Manual Muscle Testing Left Flexion (L2) 5 Normal Comments Pt sitting in chair for MMT Right Flexion (L2) 5 Normal Comments Pt sitting in chair for MMT Knee Strength Knee Manual Muscle Testing Left Flexion (S2) 5 Normal Extension (L3) 5 Normal Right Flexion (S2) 5 Normal Extension (L3) 5 Normal Ankle/Foot Strength Ankle and Foot Manual Muscle Testing Left Dorsiflexion (L4) 0 Zero Inversion 1 Trace Eversion (S1) 1 Trace Right Dorsiflexion (L4) 5 Normal Eversion (S1) 3 Fair Comments No real inversion when asked to perform Toe Strength Toe Manual Muscle Testing Left Great Toe Extension 2- Poor- Right Great Toe Extension 3+ Fair+ PT-OP-Q Treatments Start: 05/25/21 12:10 Freq: Status: Active Protocol: Document 07/04/21 13:48 ER (Rec: 07/04/21 14:33 ER [id number]) Cardio Equipment Recumbent Elliptical (VivaSmart) Duration (Minutes) 8 Resistance 4 Seat Position 11 Other 40-45 RPM, Therapeutic Exercises Sitting Exercises pirformis stretch Side bilateral Equipment Used 18 chair, support of UEs Reps/Minutes 30 x2 Comments good hip stretch LAQ and AP with band around ankles Sitting Exercise Name Reviewed HEP Side bilateral Equipment Used L1TB around ankles. Reps/Minutes 15 each Comments good form, no breaks. Clams with band around knees Side bilateral Equipment Used L1 TB Reps/Minutes 1 sec hold x15 Sit to stands Equipment Used 18 chair Reps/Minutes x20 Comments improved ability to come into standing with no use of posterior knees. Neuro Re-Education Treatment Balance Activities Tandem Stance Surface firm Equipment at rail Reps/Duration 1 reps each side Comments 30 sec each side with no support, minimal sway with self correction. PT-OP-T Assessment and Plan Start: 05/25/21 12:10 Freq: Status: Active Protocol: Document 07/04/21 13:48 ER (Rec: 07/04/21 14:33 ER [id number]) Physical Therapy Assessment Goals 4 Mcc Goal (LTG) Pt will perform 12 reps sit to stand without UE support in 30 sec to improve functional transfers and strength by . 06/30/21: Pt performs 10 reps without UE support in mesh chair with no arms. LTG Duration 4 weeks 3 Mcc Goal (LTG) Pt will gait train at least 900 feet in 6 minutes with SPC in right hand to improve community ambulation by . 06/30/21: Pt gait trains 740 feet in 6 minutes without standing or sitting rest break . This is improvement in activity tolerance. LTG Duration 4 weeks 2 Insurance Commissioner Goal (LTG) Pt will perform progressive HEP with I including strengthening, balance and gait exercises to improve balance and gait by 07/16/21. 06/30/21: Pt has been intermittently compliant with HEP LTG Duration 4 weeks 1 Insurance Commissioner Goal (LTG) Pt will perform WNLs on Tinetti or TUG to reflect improved balance and decreased fall risk by 07/26/21. 06/16/21 TUs, 16s, 17s LTG Duration 4 weeks Assessment Summary Assessment SPTA/ CHEF MANAGER discussed asking DIL to come in and review HEP for carryover support at home. Pt declined recommendation, she does enough for me and don't thing she needs to be involved with this as well. I am doing my exercises at home now and filingout the exercise flow sheet. Pt looking lethargic today, little pale after bike, he states feels like sh. BP taken 145/100 L UE manually . HR 58 BPM and sats 96% in left index finger, 140/78. HEP Review: Pt did bring HEP sheets and band, plus flow sheet indicating that he had done all exercises. HEP performed today with good form . Cueing necessary only for foot placement with resisted clamshells. Good effort, but reduced endurance today. Physical Therapy Plan Frequency and Duration Frequency of Treatment 2x/Week Duration of Treatment 4 weeks Plan of Care Start Date 06/30/21 Plan of Care End Date 07/26/21 Therapeutic Interventions Therapeutic Interventions Balance Training,Canalithic Repositioning,Gait Training, Home Exercise Program,Manual Therapy,Neuromuscular Re- education,Orthotic/Prosthetic Management,Patient/Caregiver Education,Self-Care/Home Management,Soft Tissue Mobilization,Therapeutic Activities,Therapeutic Exercises Modalities Cold Pack/Ice Massage,Hot Packs Next Visit Focus/Plan Next Note Type Treatment Note Next Visit Plan Pt to bring in his handouts each tx and review/progress exercises, balance, gait
--- NOTE | 2021-07-07 11:51 | PT-OP ANOTE ---
Pt cancelled same appt today, feeling under the weather.
--- NOTE | 2021-07-12 15:24 | PT.OTN ---
Addendum entered and electronically signed by Cynthia Hunter PTA 07/12/21 16:09: IOANA Bernstein attended and provided assist in education and directioning of seated piriformis stretch in sitting at end of tx under direct supervision and instruction of ANABELLE Marie. Original Note: Current Diagnoses Other hereditary and idiopathic neuropathies (07/12/21) Foot drop, left foot (07/12/21) Physical Therapy Treatment Note PT-OP-A Visit Information Start: 05/25/21 12:10 Freq: Status: Active Protocol: Document 07/12/21 14:34 SP (Rec: 07/12/21 16:08 SP [id number]) Out-Patient Physical Therapy Visit Information Visit Information Visit Type Treatment Note Visit Note Medicare, for Life before KX Visit Start Time 14:34 Visit Stop Time 15:24 Total Visit Minutes 50 Visit Number 11 Number of LOW ALTITUDE AIR DEFENSE OFFICER Visits 2 Evaluation Information Evaluation Date 05/26/21 Precautions Precautions Fall risk PT-OP-B Current Condition Start: 05/25/21 12:10 Freq: Status: Active Protocol: Document 05/26/21 09:45 MB (Rec: 05/26/21 10:14 MB [id number]) Current Condition History of Current Condition Onset Date 2014 Current Complaints B feet pain and neuropathy, left ankle rolling and foot drop History of Current Condition PMH includes back surgery, angioplasty with stent, prostate surgery, peripheral neuropathy and left foot drop, statin intolerance, 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 Pt has had PT on and off since 2014 when the neuropathy started after laminectomy. He most recently had PT at [facility] this year and the course was short. He was given some exercises. The neuropathy started on the left and is now across both feet and it wakes him up at night. He is receiving oral medications for neuropathy including alpha lipoic acid, N-acetylcysteine, B12 and vitamin D. His DIL is very helpful with going to doctors' appointments, medications and him working on his diet. Pt lives by himself. He only has a couple of steps. He is building a new house that will have an elevator. His land will adjoin his son's place and he will get a golf cart. He is using his cane in his right hand. He occasionally uses the walker to haul stuff. Pt likes horse riding. He twisted his left ankle when getting off the horse last week. Her reports 0-3/10 B ankles. Pt had an AFO that was prescribed 2-3 years ago from a neurologist at [facility] and he did not like it. It is annoying. Pt reports 1 fall in six months and it was two weeks ago. He thinks he stepped on a dog toy. He rescued a pit mix . Pt just ordered some supplements including magnesium. Prior Treatments and Tests PT, AFO, testing, oral medications Treatment Goals Patient/Caregiver Goals To get rid of pain and buring sensation. PT-OP-C Subjective Start: 05/25/21 12:10 Freq: Status: Active Protocol: Document 07/12/21 14:34 SP (Rec: 07/12/21 16:08 SP [id number]) OP-PT Subjective Patient Comments Patient Comments Pt had to miss last tx due to pain in R hip at superior greater trochanter maintly in WB and overall muscle soreness since seen last and stated has taken the last week to feel enough to walk with BUE support. Pt stated has never had this pain before. Pt had difficulty coming to standing in waiting room, needing to use B hurry cane for support, I dont trust my R hip might give way. Pt states want to add 2 more appts that missed, not ready to DC after already scheduled appts. Patient Reported Progress Worse PT-OP-D Balance Start: 05/25/21 12:10 Freq: Status: Active Protocol: Document 05/26/21 09:45 MB (Rec: 05/26/21 16:27 MB [id number]) OP-PT Balance Assessment Sitting Balance Static Sitting Balance Ability Good Dynamic Sitting Balance Ability Fair Sitting Balance Comments UE support for MMT LEs Standing Balance Static Standing Balance Ability Fair Dynamic Standing Balance Ability Poor Standing Balance Comments When pt moves to bring his feet into Romberg, his has left foot drop positioning Balance Tests Romberg Romberg EO 30 sec, superv assist, cues to tip left toes in March Fall Scale Copyright Permission PT-OP-G Mobility & Gait Start: 05/25/21 12:10 Freq: Status: Active Protocol: Document 05/26/21 09:45 MB (Rec: 05/26/21 16:27 MB [id number]) OP Gait Assessment Gait Gait Assistance Required: Independent Distance (Feet) 50 Able to Maintain Weight Bearing Status Yes During Gait Assistive Devices Assistive Device Straight Cane Orthotic/Prosthetic Devices or Brace: No Gait Deviations General Gait Pattern Decreased Stride Length, Decreased Feet Clearance, Flexed Trunk,Step-to Gait,Wide Based Gait Factors Limiting Gait Function Factors Limiting Gait Function Abnormal Tonal Influences, Decreased Activity Tolerance, Decreased Sensation,Decreased Strength,Incoordination, Limited Range of Motion,Poor Balance Comments Gait Comments Pt gait trains with cane in right hand. He presents with functional foot drop left foot that is more noticeable when he gait trains without AD at end of eval. 50'x2 with cane in right hand and 10'x2 without AD. Increased Riley angle on the left, slow gait. Pt states that he does not wear socks because it affects his sensation. He wears velcro shoes. He presents with left greater than right LE mild erythema and edema. Pt has an AFO that he dislikes and does not yet but will bring in in future treatments. PT-OP-K Range of Motion Start: 05/25/21 12:10 Freq: Status: Active Protocol: Document 05/26/21 09:45 MB (Rec: 05/26/21 16:27 MB [id number]) Ankle and Foot Goniometric Range of Motion Ankle and Foot ROM Limitations Comments R foot with little active inversion in sitting when assessed. Left ankle has trace inversion and eversion and no DF. Also, decreased left great toe extension. Mild erythema and edema left foot. PT-OP-M Strength Start: 05/25/21 12:10 Freq: Status: Active Protocol: Document 05/26/21 09:45 MB (Rec: 05/26/21 16:27 MB [id number]) Hip Strength Hip Manual Muscle Testing Left Flexion (L2) 5 Normal Comments Pt sitting in chair for MMT Right Flexion (L2) 5 Normal Comments Pt sitting in chair for MMT Knee Strength Knee Manual Muscle Testing Left Flexion (S2) 5 Normal Extension (L3) 5 Normal Right Flexion (S2) 5 Normal Extension (L3) 5 Normal Ankle/Foot Strength Ankle and Foot Manual Muscle Testing Left Dorsiflexion (L4) 0 Zero Inversion 1 Trace Eversion (S1) 1 Trace Right Dorsiflexion (L4) 5 Normal Eversion (S1) 3 Fair Comments No real inversion when asked to perform Toe Strength Toe Manual Muscle Testing Left Great Toe Extension 2- Poor- Right Great Toe Extension 3+ Fair+ PT-OP-Q Treatments Start: 05/25/21 12:10 Freq: Status: Active Protocol: Document 07/12/21 14:34 SP (Rec: 07/12/21 16:08 SP [id number]) Therapeutic Exercises Supine Exercises piriformis stretch Supine Exercise Name R foot over LLE knee Side right Reps/Minutes 30 Comments good feedback response, painfree SKTC Side right Reps/Minutes 30 Comments good feedback response- painfree Sitting Exercises pirformis stretch Sitting Exercise Name R foot over LLE knee Side bilateral Equipment Used 20 raised table, support of UEs Reps/Minutes 30 x2 Comments good hip stretch, painfree LAQ and AP with band around ankles Sitting Exercise Name Reviewed HEP Side bilateral Resistance AROM today Equipment Used table 18 Reps/Minutes x10 Comments good form, painfree Clams with band around knees Sitting Exercise Name reviewed HEP Side bilateral Equipment Used L1 TB Reps/Minutes x10 Comments painfree Standing Exercises self STMs Standing Exercise Name L glut med and piriformis Side bilateral Equipment Used racquetball at wall Reps/Minutes demonstrated and performed Comments Declined HO for recall when offered, painfree good demo seen Manual Therapy Treatment Soft Tissue Mobilization R hip Body Location distal glut med, piriformis Mobilization Type Strumming,Sustained Pressure Intensity/Depth Moderate Body Position Sidelying Comments manual- reported little burning at femur attachment Joint Mobilizations L hip Direction lateral, inferior Grade II Body Position Supine Reps/Duration 30 x3 each direction Comments no significant reduction in R hip discomfort. PT-OP-T Assessment and Plan Start: 05/25/21 12:10 Freq: Status: Active Protocol: Document 07/12/21 14:34 SP (Rec: 07/12/21 16:08 SP [id number]) Physical Therapy Assessment Goals 4 Long-Term Goal (LTG) Pt will perform 12 reps sit to stand without UE support in 30 sec to improve functional transfers and strength by . 06/30/21: Pt performs 10 reps without UE support in mesh chair with no arms. LTG Duration 4 weeks 3 Product Craftsman Goal (LTG) Pt will gait train at least 900 feet in 6 minutes with SPC in right hand to improve community ambulation by . 06/30/21: Pt gait trains 740 feet in 6 minutes without standing or sitting rest break . This is improvement in activity tolerance. LTG Duration 4 weeks 2 Product Craftsman Goal (LTG) Pt will perform progressive HEP with I including strengthening, balance and gait exercises to improve balance and gait by 07/16/21. 06/30/21: Pt has been intermittently compliant with HEP LTG Duration 4 weeks 1 Long-Term Goal (LTG) Pt will perform WNLs on Tinetti or TUG to reflect improved balance and decreased fall risk by 07/26/21. 06/16/21 TUs, 16s, 17s LTG Duration 4 weeks Assessment Summary Assessment Pt responded well to manual STMs and review of piriformis stretch stated was helpful last time seen, provided handout for self recall, set up and form supine and seated application. Pt states less pain in R hip into WB while walking post manual but still not back to normal stability while and still needing to use B Hurry canes for safety. Physical Therapy Plan Frequency and Duration Frequency of Treatment 2x/Week Duration of Treatment 4 weeks Plan of Care Start Date 06/30/21 Plan of Care End Date 07/26/21 Therapeutic Interventions Therapeutic Interventions Balance Training,Canalithic Repositioning,Gait Training, Home Exercise Program,Manual Therapy,Neuromuscular Re- education,Orthotic/Prosthetic Management,Patient/Caregiver Education,Self-Care/Home Management,Soft Tissue Mobilization,Therapeutic Activities,Therapeutic Exercises Modalities Cold Pack/Ice Massage,Hot Packs Next Visit Focus/Plan Next Note Type Treatment Note Next Visit Plan Next tx: progress gait LRAD as tolerated. Pt compliant bringing in his handouts each tx and POC: review/progress exercises, balance, gait.
--- NOTE | 2021-07-14 10:25 | PT-OP ANOTE ---
Pt called to cancel same day appt. MANAGER PRODUCTION called pt and he reported having high blood pressure today, R hip not significantly better and wondering if his meds need to be reassessed so he made an appt with primary care physician for further assessment. MANAGER PRODUCTION spoke with supervising PT and with new concerns not sent to PT for was recommending possible DC and after reassessment with physician if feels safe to continue PT can give another referral. MANAGER PRODUCTION discussed these recommendations with pt over phone he stated will call and leave a message after appt for PT or MANAGER PRODUCTION what avenue wanting to pursue.
--- NOTE | 2021-07-14 15:27 | PT-OP ANOTE ---
PT reviews doctor's note. 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 His visit was about elevated BP. Since the right hip pain is new and his PT order is for left foot drop, PT anticipates d/cing pt next treatment date and pt can then follow-up with doctor if he wishes to get PT for his right hip.
--- NOTE | 2021-07-18 15:08 | PT.OTN ---
Current Diagnoses Other hereditary and idiopathic neuropathies (07/18/21) Foot drop, left foot (07/18/21) Physical Therapy Treatment Note PT-OP-A Visit Information Start: 05/25/21 12:10 Freq: Status: Active Protocol: Document 07/18/21 14:38 MB (Rec: 07/18/21 15:06 MB [id number]) Out-Patient Physical Therapy Visit Information Visit Information Visit Type Treatment Note Visit Note Medicare, for Life before KX Visit Start Time 14:38 Visit Stop Time 15:16 Total Visit Minutes 28 Visit Number 12 Number of MODELING TEACHER Visits 0 Evaluation Information Evaluation Date 05/26/21 Precautions Precautions Fall risk PT-OP-B Current Condition Start: 05/25/21 12:10 Freq: Status: Active Protocol: Document 05/26/21 09:45 MB (Rec: 05/26/21 10:14 MB [id number]) Current Condition History of Current Condition Onset Date 2014 Current Complaints B feet pain and neuropathy, left ankle rolling and foot drop History of Current Condition PMH includes back surgery, angioplasty with stent, prostate surgery, peripheral neuropathy and left foot drop, statin intolerance, 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 Pt has had PT on and off since 2014 when the neuropathy started after laminectomy. He most recently had PT at [facility] this year and the course was short. He was given some exercises. The neuropathy started on the left and is now across both feet and it wakes him up at night. He is receiving oral medications for neuropathy including alpha lipoic acid, N-acetylcysteine, B12 and vitamin D. His DIL is very helpful with going to doctors' appointments, medications and him working on his diet. Pt lives by himself. He only has a couple of steps. He is building a new house that will have an elevator. His land will adjoin his son's place and he will get a golf cart. He is using his cane in his right hand. He occasionally uses the walker to haul stuff. Pt likes horse riding. He twisted his left ankle when getting off the horse last week. Her reports 0-3/10 B ankles. Pt had an AFO that was prescribed 2-3 years ago from a neurologist at [facility] and he did not like it. It is annoying. Pt reports 1 fall in six months and it was two weeks ago. He thinks he stepped on a dog toy. He rescued a pit mix . Pt just ordered some supplements including magnesium. Prior Treatments and Tests PT, AFO, testing, oral medications Treatment Goals Patient/Caregiver Goals To get rid of pain and buring sensation. PT-OP-C Subjective Start: 05/25/21 12:10 Freq: Status: Active Protocol: Document 07/18/21 14:38 MB (Rec: 07/18/21 15:06 MB [id number]) OP-PT Subjective Patient Comments Patient Comments Pt states that he con't to have right hip pain. It has been since the last PT session on 07/12/21. He states that he woke up with a post-workout pain. He did not talk with Dr. Cuevas about it at his appointment last week. He con' t to use two canes to help with balance and walking. He has pain with WB. He has not been doing his sitting exercises consistently. PT-OP-D Balance Start: 05/25/21 12:10 Freq: Status: Active Protocol: Document 05/26/21 09:45 MB (Rec: 05/26/21 16:27 MB [id number]) OP-PT Balance Assessment Sitting Balance Static Sitting Balance Ability Good Dynamic Sitting Balance Ability Fair Sitting Balance Comments UE support for MMT LEs Standing Balance Static Standing Balance Ability Fair Dynamic Standing Balance Ability Poor Standing Balance Comments When pt moves to bring his feet into Romberg, his has left foot drop positioning Balance Tests Romberg Romberg EO 30 sec, superv assist, cues to tip left toes in March Fall Scale Copyright Permission PT-OP-G Mobility & Gait Start: 05/25/21 12:10 Freq: Status: Active Protocol: Document 05/26/21 09:45 MB (Rec: 05/26/21 16:27 MB [id number]) OP Gait Assessment Gait Gait Assistance Required: Independent Distance (Feet) 50 Able to Maintain Weight Bearing Status Yes During Gait Assistive Devices Assistive Device Straight Cane Orthotic/Prosthetic Devices or Brace: No Gait Deviations General Gait Pattern Decreased Stride Length, Decreased Feet Clearance, Flexed Trunk,Step-to Gait,Wide Based Gait Factors Limiting Gait Function Factors Limiting Gait Function Abnormal Tonal Influences, Decreased Activity Tolerance, Decreased Sensation,Decreased Strength,Incoordination, Limited Range of Motion,Poor Balance Comments Gait Comments Pt gait trains with cane in right hand. He presents with functional foot drop left foot that is more noticeable when he gait trains without AD at end of eval. 50'x2 with cane in right hand and 10'x2 without AD. Increased Riley angle on the left, slow gait. Pt states that he does not wear socks because it affects his sensation. He wears velcro shoes. He presents with left greater than right LE mild erythema and edema. Pt has an AFO that he dislikes and does not yet but will bring in in future treatments. PT-OP-K Range of Motion Start: 05/25/21 12:10 Freq: Status: Active Protocol: Document 05/26/21 09:45 MB (Rec: 05/26/21 16:27 MB [id number]) Ankle and Foot Goniometric Range of Motion Ankle and Foot ROM Limitations Comments R foot with little active inversion in sitting when assessed. Left ankle has trace inversion and eversion and no DF. Also, decreased left great toe extension. Mild erythema and edema left foot. PT-OP-M Strength Start: 05/25/21 12:10 Freq: Status: Active Protocol: Document 05/26/21 09:45 MB (Rec: 05/26/21 16:27 MB [id number]) Hip Strength Hip Manual Muscle Testing Left Flexion (L2) 5 Normal Comments Pt sitting in chair for MMT Right Flexion (L2) 5 Normal Comments Pt sitting in chair for MMT Knee Strength Knee Manual Muscle Testing Left Flexion (S2) 5 Normal Extension (L3) 5 Normal Right Flexion (S2) 5 Normal Extension (L3) 5 Normal Ankle/Foot Strength Ankle and Foot Manual Muscle Testing Left Dorsiflexion (L4) 0 Zero Inversion 1 Trace Eversion (S1) 1 Trace Right Dorsiflexion (L4) 5 Normal Eversion (S1) 3 Fair Comments No real inversion when asked to perform Toe Strength Toe Manual Muscle Testing Left Great Toe Extension 2- Poor- Right Great Toe Extension 3+ Fair+ PT-OP-Q Treatments Start: 05/25/21 12:10 Freq: Status: Active Protocol: Document 07/18/21 14:38 MB (Rec: 07/18/21 15:06 MB [id number]) Cardio Equipment Recumbent Elliptical (Biodex) Duration (Minutes) 20 Resistance 4 Other LEs only Self-Care/Home Management Treatment Education Other Education Ed pt that he can perform any HEP exercises from PT that do not exacerbate right hip pain Ed pt that he needs to follow- up with his doctor about his right hip pain Ed pt that he needs to get a BP cuff to check his BP at home if that is what the doctor said he should do PT-OP-T Assessment and Plan Start: 05/25/21 12:10 Freq: Status: Active Protocol: Document 07/18/21 14:38 MB (Rec: 07/18/21 15:06 MB [id number]) Physical Therapy Assessment Goals 4 Public Relations Professional Goal (LTG) Pt will perform 12 reps sit to stand without UE support in 30 sec to improve functional transfers and strength by . 07/18/21: Deferred testing today d/t pt with ongoing right hip pain LTG Duration Not met 3 Public Relations Professional Goal (LTG) Pt will gait train at least 900 feet in 6 minutes with SPC in right hand to improve community ambulation by . 07/18/21: Not performed today d/t pt reports ongoing increased pain with WB through right leg 06/30/21: Pt gait trains 740 feet in 6 minutes without standing or sitting rest break . This is improvement in activity tolerance. LTG Duration Not met 2 Public Relations Professional Goal (LTG) Pt will perform progressive HEP with I including strengthening, balance and gait exercises to improve balance and gait by 07/16/21. 07/18/21: Pt has not been performing his exercises as he should per his report LTG Duration Pt not compliant with HEP 1 Public Relations Professional Goal (LTG) Pt will perform WNLs on Tinetti or TUG to reflect improved balance and decreased fall risk by 07/26/21. 07/18/21: Not tested d/t pt with ongoing right hip pain 06/16/21 TUs, 16s, 17s LTG Duration Not met Assessment Summary Assessment Since last treatment, pt reports increased right hip pain and he saw Dr. Cuevas but did not talk with him about it . Recommend follow-up about his right hip. Overall, pt has not been consistently compliant with PT recommendations including HEP and he has not been able to progress towards goals consistently d/t non- compliance and now the right sided hip pain. PT has consistently provided education to pt to follow-up with doctor about his right sided hip pain complaints. Unsure if/when he will do this . Will d/c PT as we have reached a plateau. His BP and HR in right UE after using Biodex is 146/68, 76.
--- NOTE | 2021-07-18 15:33 | PT.OPDS ---
Current Diagnoses Other hereditary and idiopathic neuropathies (07/18/21) Foot drop, left foot (07/18/21) Visit Care Team Role Provider Type Osbaldo Cuevas MD Family Provider Physician Primary Care Provider Specialty: Internal Medicine Address: [address] [place] [address], [facility] [address], [place], [address] Email: [email or web address] Myles Arndt MD Attending Provider Non-Staff Referring Provider Specialty: Neurology Address: [address] [place], [address] Email: Visit Number Visit Number 12 Discharge Summary PT-OP-B Current Condition Start: 05/25/21 12:10 Freq: Status: Active Protocol: Document 05/26/21 09:45 MB (Rec: 05/26/21 10:14 MB [id number]) Current Condition History of Current Condition Onset Date 2014 Current Complaints B feet pain and neuropathy, left ankle rolling and foot drop History of Current Condition PMH includes back surgery, angioplasty with stent, prostate surgery, peripheral neuropathy and left foot drop, statin intolerance, 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 Pt has had PT on and off since 2014 when the neuropathy started after laminectomy. He most recently had PT at [facility] this year and the course was short. He was given some exercises. The neuropathy started on the left and is now across both feet and it wakes him up at night. He is receiving oral medications for neuropathy including alpha lipoic acid, N-acetylcysteine, B12 and vitamin D. His DIL is very helpful with going to doctors' appointments, medications and him working on his diet. Pt lives by himself. He only has a couple of steps. He is building a new house that will have an elevator. His land will adjoin his son's place and he will get a golf cart. He is using his cane in his right hand. He occasionally uses the walker to haul stuff. Pt likes horse riding. He twisted his left ankle when getting off the horse last week. Her reports 0-3/10 B ankles. Pt had an AFO that was prescribed 2-3 years ago from a neurologist at [facility] and he did not like it. It is annoying. Pt reports 1 fall in six months and it was two weeks ago. He thinks he stepped on a dog toy. He rescued a pit mix . Pt just ordered some supplements including magnesium. Prior Treatments and Tests PT, AFO, testing, oral medications Treatment Goals Patient/Caregiver Goals To get rid of pain and buring sensation. PT-OP-C Subjective Start: 05/25/21 12:10 Freq: Status: Active Protocol: Document 07/18/21 14:38 MB (Rec: 07/18/21 15:06 MB [id number]) OP-PT Subjective Patient Comments Patient Comments Pt states that he con't to have right hip pain. It has been since the last PT session on 07/12/21. He states that he woke up with a post-workout pain. He did not talk with Dr. Cuevas about it at his appointment last week. He con' t to use two canes to help with balance and walking. He has pain with WB. He has not been doing his sitting exercises consistently. PT-OP-D Balance Start: 05/25/21 12:10 Freq: Status: Active Protocol: Document 05/26/21 09:45 MB (Rec: 05/26/21 16:27 MB [id number]) OP-PT Balance Assessment Sitting Balance Static Sitting Balance Ability Good Dynamic Sitting Balance Ability Fair Sitting Balance Comments UE support for MMT LEs Standing Balance Static Standing Balance Ability Fair Dynamic Standing Balance Ability Poor Standing Balance Comments When pt moves to bring his feet into Romberg, his has left foot drop positioning Balance Tests Romberg Romberg EO 30 sec, superv assist, cues to tip left toes in March Fall Scale Copyright Permission PT-OP-G Mobility & Gait Start: 05/25/21 12:10 Freq: Status: Active Protocol: Document 05/26/21 09:45 MB (Rec: 05/26/21 16:27 MB [id number]) OP Gait Assessment Gait Gait Assistance Required: Independent Distance (Feet) 50 Able to Maintain Weight Bearing Status Yes During Gait Assistive Devices Assistive Device Straight Cane Orthotic/Prosthetic Devices or Brace: No Gait Deviations General Gait Pattern Decreased Stride Length, Decreased Feet Clearance, Flexed Trunk,Step-to Gait,Wide Based Gait Factors Limiting Gait Function Factors Limiting Gait Function Abnormal Tonal Influences, Decreased Activity Tolerance, Decreased Sensation,Decreased Strength,Incoordination, Limited Range of Motion,Poor Balance Comments Gait Comments Pt gait trains with cane in right hand. He presents with functional foot drop left foot that is more noticeable when he gait trains without AD at end of eval. 50'x2 with cane in right hand and 10'x2 without AD. Increased Riley angle on the left, slow gait. Pt states that he does not wear socks because it affects his sensation. He wears velcro shoes. He presents with left greater than right LE mild erythema and edema. Pt has an AFO that he dislikes and does not yet but will bring in in future treatments. PT-OP-K Range of Motion Start: 05/25/21 12:10 Freq: Status: Active Protocol: Document 05/26/21 09:45 MB (Rec: 05/26/21 16:27 MB [id number]) Ankle and Foot Goniometric Range of Motion Ankle and Foot ROM Limitations Comments R foot with little active inversion in sitting when assessed. Left ankle has trace inversion and eversion and no DF. Also, decreased left great toe extension. Mild erythema and edema left foot. PT-OP-M Strength Start: 05/25/21 12:10 Freq: Status: Active Protocol: Document 05/26/21 09:45 MB (Rec: 05/26/21 16:27 MB [id number]) Hip Strength Hip Manual Muscle Testing Left Flexion (L2) 5 Normal Comments Pt sitting in chair for MMT Right Flexion (L2) 5 Normal Comments Pt sitting in chair for MMT Knee Strength Knee Manual Muscle Testing Left Flexion (S2) 5 Normal Extension (L3) 5 Normal Right Flexion (S2) 5 Normal Extension (L3) 5 Normal Ankle/Foot Strength Ankle and Foot Manual Muscle Testing Left Dorsiflexion (L4) 0 Zero Inversion 1 Trace Eversion (S1) 1 Trace Right Dorsiflexion (L4) 5 Normal Eversion (S1) 3 Fair Comments No real inversion when asked to perform Toe Strength Toe Manual Muscle Testing Left Great Toe Extension 2- Poor- Right Great Toe Extension 3+ Fair+ PT-OP-T Assessment and Plan Start: 05/25/21 12:10 Freq: Status: Active Protocol: Document 07/18/21 14:38 MB (Rec: 07/18/21 15:06 MB [id number]) Physical Therapy Assessment Goals 4 Senior Living Goal (LTG) Pt will perform 12 reps sit to stand without UE support in 30 sec to improve functional transfers and strength by . 07/18/21: Deferred testing today d/t pt with ongoing right hip pain LTG Duration Not met 3 Senior Living Goal (LTG) Pt will gait train at least 900 feet in 6 minutes with SPC in right hand to improve community ambulation by . 07/18/21: Not performed today d/t pt reports ongoing increased pain with WB through right leg 06/30/21: Pt gait trains 740 feet in 6 minutes without standing or sitting rest break . This is improvement in activity tolerance. LTG Duration Not met 2 Front Desk Coordinator Goal (LTG) Pt will perform progressive HEP with I including strengthening, balance and gait exercises to improve balance and gait by 07/16/21. 07/18/21: Pt has not been performing his exercises as he should per his report LTG Duration Pt not compliant with HEP 1 Front Desk Coordinator Goal (LTG) Pt will perform WNLs on Tinetti or TUG to reflect improved balance and decreased fall risk by 07/26/21. 07/18/21: Not tested d/t pt with ongoing right hip pain 06/16/21 TUs, 16s, 17s LTG Duration Not met Assessment Summary Assessment Since last treatment, pt reports increased right hip pain and he saw Dr. Cuevas but did not talk with him about it . Recommend follow-up about his right hip. Overall, pt has not been consistently compliant with PT recommendations including HEP and he has not been able to progress towards goals consistently d/t non- compliance and now the right sided hip pain. PT has consistently provided education to pt to follow-up with doctor about his right sided hip pain complaints. Unsure if/when he will do this . Will d/c PT as we have reached a plateau. His BP and HR in right UE after using Biodex is 146/68, 76.
== END 2021-09-27 09:34 ==
LOC: PHYS 14:30
PROVIDERS: Family Provider Student in an Organized Health Care Education/Training Program; PCP Student in an Organized Health Care Education/Training Program; Referring Provider Psychiatry & Neurology Neurology; Visit Provider Psychiatry & Neurology Neurology
DX: G60.8 Other hereditary and idiopathic neuropathies (principal); M21.372 Foot drop, left foot
CPT/HCPCS: 97110; 97112; 97116; 97140; 97162; 97535

== ENCOUNTER → 2021-07-29 16:30 | Outpatient (CLI) | payer MEDICARE, OTHER, SELFPAY ==
[2021-01-26 13:04] VITALS: BMI 30.2
--- NOTE | 2021-07-29 16:32 | DI.MRI.S_ITS ---
PROCEDURE: MR LUMBAR SPINE WO CON INDICATIONS: Sciatica, lower extremity weakness TECHNIQUE: Noncontrast sagittal T1 spin echo and T2 fast echo, sagittal STIR, axial T1 and T2 fast spin echo through the lumbar spine. In cases with scoliosis, additional coronal T2 fast spin echo may be performed. COMPARISON: None. FINDINGS: Image quality: Excellent. Alignment and Curvature: There is minimal leftward curvature of the lumbar spine with apex at L2-3. There is trace retrolisthesis of L1 on L2, 1-2 mm, trace anterolisthesis of L3 on L4, 1-2 mm. Bone Marrow: Marrow is of normal overall signal. Moderate reactive endplate changes are present at L4-5, mild L5-S1, minimal throughout the remainder of the lumbar spine. No acute vertebral body compression fractures. Spinal Cord: Conus medullaris terminates at the L2 level. Visualized cord demonstrates normal signal and size. Paraspinous Soft Tissues: No paravertebral masses. Discs: Severe multilevel disc desiccation is present. L1-L2: Minimal disc bulge without spinal stenosis. Minimal bilateral foraminal narrowing with facet and ligamentum flavum hypertrophy. L2-L3: Mild disc with [id number] spinal stenosis. Sstd-cd-mgqnhtpe bilateral foraminal narrowing, right greater than left with facet and ligamentum flavum hypertrophy. L3-L4: Mild disc bulge with [id number]-sajngvhp spinal stenosis. Severe right and moderate to severe left foraminal narrowing with slight appearance of flattening of the exiting right L3 nerve roots. Facet and ligamentum flavum hypertrophy are present. L4-L5: Mild disc bulge with mild spinal stenosis. Severe bilateral foraminal narrowing, right greater than left with facet and ligamentum flavum hypertrophy. There is minimal appearance of flattening of the right exiting L4 nerve roots. L5-S1: Mild disc bulge without spinal stenosis. Severe bilateral foraminal narrowing, left greater than right with appearance of flattening of the exiting L5 nerve root is particularly on the left. IMPRESSION: 1. Multilevel degenerative changes. 2. 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 3. Multilevel spinal stenosis most notable at L2-3 secondary to disc bulge with contributing effect of facet/ligamentum flavum arthropathy. Dictated by: Chanda Raman M.D. on 08/01/2021 at 11:22 Approved by: Chanda Raman M.D. on 08/01/2021 at 11:36
== END ==
PROVIDERS: Family Provider Student in an Organized Health Care Education/Training Program; PCP Student in an Organized Health Care Education/Training Program; Referring Provider Student in an Organized Health Care Education/Training Program; Visit Provider Student in an Organized Health Care Education/Training Program
DX: M51.17 Intervertebral disc disorders with radiculopathy, lumbosacral region (principal); M48.061 Spinal stenosis, lumbar region without neurogenic claudication; M48.07 Spinal stenosis, lumbosacral region; M51.16 Intervertebral disc disorders with radiculopathy, lumbar region; M47.26 Other spondylosis with radiculopathy, lumbar region; M47.27 Other spondylosis with radiculopathy, lumbosacral region; M21.372 Foot drop, left foot; G62.9 Polyneuropathy, unspecified
CPT/HCPCS: 72148

== ENCOUNTER → 2021-12-29 08:50 | Outpatient (CLI) | payer MEDICARE, OTHER, SELFPAY ==
[2021-01-26 13:04] VITALS: BMI 30.2
[2021-12-29 09:39] LABS: Add Manual Diff / Slide Review NO; Basophils Absolute Auto 0 /uL (0-100); Basophils Percent Auto 0.4 % (0-2); Eosinophils Absolute Auto 200 /uL (0-450); Eosinophils Percent Auto 3.8 % (2-4); Hematocrit 39.3 % (41-53); Hemoglobin 13.2 g/dL (13.5-17.5); Lymphocytes Absolute Auto 900 /uL (1100-4500); Lymphocytes Percent Auto 19.5 % (25-40); Mean Corpuscular HGB Conc 33.5 % (30-36); Mean Corpuscular Hemoglobin 31.9 PG (26-34); Mean Corpuscular Volume 95.3 fL (80-100); Monocytes Absolute Auto 500 /uL (0-900); Monocytes Percent Auto 11.6 % (3-14); Neutrophils Absolute Auto 2900 /uL (1500-7000); Neutrophils Percent Auto 64.7 % (50-75); Platelet Count 139 X10^3/uL (150-400); Red Blood Cell Count 4.13 X10^6/uL (4.5-5.9); Red Cell Distribution Width 14.5 % (11.6-14.8); White Blood Cell Count 4.4 X10^3/uL (4.5-11.0)
[2021-12-29 10:14] LABS: HEMOLYSIS < 15 (0-50); Potassium 4.7 mmol/L (3.4-5.1)
[2021-12-29 10:15] LABS: BUN Creatinine Ratio 20.9 (6-22); Blood Urea Nitrogen 19 mg/dL (9-20); Calcium 8.5 mg/dL (8.4-10.2); Carbon Dioxide 23 mmol/L (22-32); Chloride 109 mmol/L (98-107); Estimated Glomerular Filt Rate > 60 mL/min (>60); Glucose 106 mg/dL (80-110); Sodium 141 mmol/L (137-145)
[2021-12-29 10:25] LABS: Free T4, Direct Thyroxine 1.28 ng/dL (0.78-2.19)
[2021-12-29 10:39] LABS: Thyroid Stimulating Hormone 1.66 uIU/mL (0.47-4.68)
== END ==
PROVIDERS: Family Provider Student in an Organized Health Care Education/Training Program; PCP Student in an Organized Health Care Education/Training Program; Referring Provider Internal Medicine Cardiovascular Disease; Visit Provider Internal Medicine Cardiovascular Disease
DX: I10 Essential (primary) hypertension (principal); R53.83 Other fatigue; I48.19 Other persistent atrial fibrillation
CPT/HCPCS: 36415; 80048; 84439; 84443; 85025

== ENCOUNTER → 2022-02-15 10:44 | Outpatient (CLI) | payer MEDICARE, OTHER, SELFPAY ==
[2021-01-26 13:04] VITALS: BMI 30.2
== END ==
PROVIDERS: Family Provider Student in an Organized Health Care Education/Training Program; PCP Student in an Organized Health Care Education/Training Program; Visit Provider Physician Assistant
DX: L98.9 Disorder of the skin and subcutaneous tissue, unspecified (principal)
CPT/HCPCS: 87070; 87075; 87077; 87186; 87205

== ENCOUNTER → 2022-02-20 15:03 | Outpatient (CLI) | payer MEDICARE, OTHER, SELFPAY ==
[2021-01-26 13:04] VITALS: BMI 30.2
[2022-02-20 15:40] LABS: Hematocrit 37.7 % (41-53); Hemoglobin 12.9 g/dL (13.5-17.5); Mean Corpuscular HGB Conc 34.2 % (30-36); Mean Corpuscular Hemoglobin 32.9 PG (26-34); Mean Corpuscular Volume 96.1 fL (80-100); Platelet Count 136 X10^3/uL (150-400); Red Blood Cell Count 3.93 X10^6/uL (4.5-5.9); Red Cell Distribution Width 13.8 % (11.6-14.8); White Blood Cell Count 5.9 X10^3/uL (4.5-11.0)
[2022-02-20 15:56] LABS: BUN Creatinine Ratio 26.4 (6-22); Blood Urea Nitrogen 28 mg/dL (9-20); Calcium 8.7 mg/dL (8.4-10.2); Carbon Dioxide 24 mmol/L (22-32); Chloride 107 mmol/L (98-107); Estimated Glomerular Filt Rate > 60 mL/min (>60); Glucose 120 mg/dL (80-110); HEMOLYSIS < 15 (0-50); Potassium 4.7 mmol/L (3.4-5.1); Sodium 140 mmol/L (137-145)
== END ==
PROVIDERS: Family Provider Student in an Organized Health Care Education/Training Program; PCP Student in an Organized Health Care Education/Training Program; Referring Provider Student in an Organized Health Care Education/Training Program; Visit Provider Student in an Organized Health Care Education/Training Program
DX: R53.83 Other fatigue (principal); R19.7 Diarrhea, unspecified
CPT/HCPCS: 36415; 80048; 85027

== ENCOUNTER 2022-03-29 11:38 | Observation (INO) | payer MEDICARE, OTHER, SELFPAY ==
[2021-01-26 13:04] VITALS: BMI 30.2
[2022-03-29] VITALS (39 sets, daily range): BP systolic 97–186; BP diastolic 54–77; PULSE 38–64; RESP 11–29; TEMP 36.1; O2SAT 96–99; BMI 30.8
--- NOTE | 2022-03-29 11:52 | DI.RAD.S_ITS ---
PROCEDURE: XR CHEST 1V INDICATIONS: chest pain TECHNIQUE: One view of the chest was acquired. COMPARISON: [facility], CR, XR CHEST 1V, 03/16/2021, 14:06. [facility], CR, XR CHEST 1V, 01/26/2021, 5:09. [facility], CR, XR CHEST 1V, 10/20/2020, 11:14. FINDINGS: Surgical changes and devices: None. Lungs and pleura: On this semiupright portable chest examination, no large pneumothorax or large pleural effusions are seen. No focal infiltrates are seen. Low lung volumes are noted. This causes a crowded appearance to the lung markings and limits evaluation. Mediastinum: Mediastinal contours appear normal. Heart size is moderately enlarged. Bones and chest wall: No suspicious bony lesions. Age-appropriate bony degenerative changes are seen. Overlying soft tissues appear unremarkable. IMPRESSION: Moderate cardiomegaly. Low lung volumes, without a significant pulmonary abnormality. Dictated by: Liam Ulloa M.D. on 03/29/2022 at 12:24 Approved by: Liam Ulloa M.D. on 03/29/2022 at 12:25
[2022-03-29 12:03] LABS: Add Manual Diff / Slide Review NO; Basophils Absolute Auto 0 /uL (0-100); Basophils Percent Auto 0.5 % (0-2); Eosinophils Absolute Auto 100 /uL (0-450); Eosinophils Percent Auto 1.9 % (2-4); Hematocrit 39.3 % (41-53); Hemoglobin 13.1 g/dL (13.5-17.5); Lymphocytes Absolute Auto 800 /uL (1100-4500); Lymphocytes Percent Auto 12.8 % (25-40); Mean Corpuscular HGB Conc 33.4 % (30-36); Mean Corpuscular Hemoglobin 32.4 PG (26-34); Mean Corpuscular Volume 97.1 fL (80-100); Monocytes Absolute Auto 600 /uL (0-900); Monocytes Percent Auto 9.9 % (3-14); Neutrophils Absolute Auto 4600 /uL (1500-7000); Neutrophils Percent Auto 74.9 % (50-75); Platelet Count 140 X10^3/uL (150-400); Red Blood Cell Count 4.05 X10^6/uL (4.5-5.9); Red Cell Distribution Width 13.4 % (11.6-14.8); White Blood Cell Count 6.1 X10^3/uL (4.5-11.0)
[2022-03-29 12:14] LABS: COVID19 -Nasal RAPID Negative (Negative)
--- NOTE | 2022-03-29 12:23 | ED_ITS ---
HPI - Chest Pain <Zackery Arshad MD - Last Filed: 04/04/22 04:03> General Chief Complaint: Chest Pain Stated Complaint: Chest pain Time Seen by Provider: 03/29/22 11:58 Source: patient Mode of arrival: Family Vehicle Limitations: no limitations History of Present Illness HPI narrative: Patient has had intermittent substernal chest pressure pain since yesterday. Variable duration between minutes to an hour. Has had nausea vomiting sweating yesterday. Today awoke with chest discomfort again and went to physical therapy, after returning felt very tired and winded which is unusual for him. Heart rate noted. Son at bedside states his heart rate is usually in the 40s or 50s but never has gone down in the 30s like today. Patient in no distress at this time. Patient sees Dr. Stephens, cardiology at [facility]. Has significant history of multiple heart stents in the past. Last 1 in 2008. No recent illness fever chills cough cold congestion other than nausea vomiting yesterday. Patient is on metoprolol. Related Data Home Medications Medication Instructions Recorded Confirmed CoQ-10 400 mg PO QPM ##0 11/21/16 03/29/22 ascorbic acid (vitamin C) 500 mg 500 mg PO DAILY ##0 11/21/16 03/29/22 tablet tamsulosin 0.4 mg capsule (Flomax) 0.8 mg PO QPM ##0 11/21/16 03/29/22 [VITAMIN K2] 100 mcg PO QPM ##0 03/06/17 03/29/22 alpha lipoic acid 600 mg capsule 600 mg PO BEDTIME 12/11/18 03/29/22 lisinopril 20 mg tablet 20 mg PO QPM 12/11/18 03/29/22 Vitamin D3 1,500 units PO DAILY 12/18/18 03/29/22 apixaban 5 mg tablet (Eliquis) 5 mg PO BID 10/26/20 03/29/22 amlodipine 10 mg tablet 5 mg PO DAILY 02/20/22 03/29/22 linaclotide 145 mcg capsule 145 mcg PO DAILY 02/20/22 03/29/22 (Linzess) [employer]Med AirSense Auto 03/27/22 03/30/22 Previous Rx's Medication Instructions Recorded rosuvastatin 5 mg tablet (Crestor) 5 mg PO DAILY 30 days #30 tabs 01/09/21 solifenacin 10 mg tablet (Vesicare) 10 mg PO DAILY #30 tabs 04/26/21 nitroglycerin 0.4 mg sublingual 0.4 mg sublingual Q5-15M PRN Chest 08/15/21 tablet Pain #20 tabs gabapentin 300 mg capsule 600 mg PO BID #360 caps 04/03/22 Allergies Allergy/AdvReac Type Severity Reaction Status Date / Time No Known Drug Allergies Allergy Verified 03/29/22 11:56 <Jaelyn Molina DO - Last Filed: 03/30/22 21:17> History of Present Illness HPI narrative: Patient has had intermittent substernal chest pressure pain since yesterday. Variable duration between minutes to an hour. Has had nausea vomiting sweating yesterday. Today awoke with chest discomfort again and went to physical therapy, after returning felt very tired and winded which is unusual for him. Heart rate noted. Son at bedside states his heart rate is usually in the 40s or 50s but never has gone down in the 30s like today. Patient in no distress at this time. Patient sees Dr. Stephens, cardiology at [facility]. Has significant history of multiple heart stents in the past. Last 1 in 2008. No recent illness fever, chills, cough, cold congestion other than na usea vomiting yesterday. Patient is on metoprolol. Review of Systems <Zackery Arshad MD - Last Filed: 04/04/22 04:03> Review of Systems Narrative: GENERAL: Denies chills, fatigue, malaise, fever, sweats. HEENT: Denies sinus pain, ear pain, sore throat RESPIRATORY: Denies dyspnea, cough CARDIOVASCULAR: Positive for chest pain, palpitations GASTROINTESTINAL: Positive for nausea, vomiting, negative for abdominal pain : Denies dysuria, frequency, hematuria MUSCULOSKELETAL: denies muscle or bony pain SKIN: Denies rash, skin lesions NEUROLOGIC: Denies weakness, numbness ROS Unobtainable: All systems reviewed & are unremarkable except as noted in HPI and below Patient History <Zackery Arshad MD - Last Filed: 04/04/22 04:03> Medical History Acute GI bleeding Balance problems (02/08/16) Chickenpox Coronary artery disease (2008) Coronary artery disease involving [place] coronary artery of [place] heart without angina pectoris (02/08/16) Essential hypertension (02/08/16) Gastroesophageal reflux disease (06/13/16) Headache Hearing loss (2014) History of malignant neoplasm of prostate (04/08/15) Hx of myocardial infarction (Unknown) Hypertension (Unknown) Left foot drop (03/06/17) Lumbar disc disease (2012) Measles Peripheral polyneuropathy (03/06/17) Polio (1950) Prostate cancer (2008) Pure hypercholesterolemia (02/08/16) Spinal stenosis of lumbar region (02/08/16) Statin intolerance (02/08/16) Vitamin D deficiency (11/21/16) Surgical History History of prostate surgery (2009) Hx of heart surgery (2008) Hx of hernia repair (Unknown) Status post laminectomy Family History Father No problems noted. Mother Cancer Grandfather No problems noted. Grandmother No problems noted. Grandfather No problems noted. Grandmother Cancer Family/Other Stroke Heart attack Coronary artery disease Congestive heart failure Social History marital status: household members: none Smoking Status: Former smoker second hand exposure: No alcohol intake: current substance use type: does not use Smoking Status: Former smoker alcohol intake frequency: a few times a week Substance Use Type: does not use Exam <Zackery Arshad MD - Last Filed: 04/04/22 04:03> Narrative Exam Narrative: GENERAL: in no distress, not toxic not dyspneic HEAD: Normocephalic. EYES: Pupils equal round No scleral icterus. ENT: Mucous membranes moist. NECK: Trachea midline. CARDIOVASCULAR: Regular rate and rhythm without murmurs, bradycardia RESPIRATORY: Clear to auscultation. Breath sounds equal bilaterally. No wheezes, rales, or rhonchi. GASTROINTESTINAL: Abdomen soft, non-tender EXTREMITIES: No gross deformities. BACK: No flank tenderness. NEURO: AOx4. SKIN: Warm and dry PSYCH: Not anxious, is cooperative Initial Vital Signs Initial Vital Signs: Vital Signs Pulse Rate 52 L 03/29/22 11:46 Respiratory Rate 23 03/29/22 11:46 Pulse Oximetry 98 03/29/22 11:46 Oxygen Delivery Method 03/29/22 11:46 <Norm Kang DO - Last Filed: 03/31/22 01:59> Initial Vital Signs Initial Vital Signs: Vital Signs Pulse Rate 52 L 03/29/22 11:46 Respiratory Rate 23 03/29/22 11:46 Pulse Oximetry 98 03/29/22 11:46 Oxygen Delivery Method 03/29/22 11:46 <Jaelyn Molina DO - Last Filed: 03/30/22 21:17> Initial Vital Signs Initial Vital Signs: Vital Signs Pulse Rate 52 L 03/29/22 11:46 Respiratory Rate 23 03/29/22 11:46 Pulse Oximetry 98 03/29/22 11:46 Oxygen Delivery Method 03/29/22 11:46 Course <Zackery Arshad MD - Last Filed: 04/04/22 04:03> Course Course Narrative: No new issues during course of stay 6:00 p.m.. Sign out to Dr. Kang, patient is on waiting list for [facility]. Patient sees Dr. Stephens. Patient needs nuclear stress test as well as for heart rate monitoring. Metoprolol to be held tonight. Reviewed in the morning whether half dose to continue. morning labs and meds to be done Decision to Admit Date: 03/29/22 Decision to Admit time: 12:26 Orders Ordered: Discontinued Medications Acetaminophen (Acetaminophen 325 Mg Tablet) 650 mg PO Q6HR PRN PRN Reason: Fever/Mild Pain (1-3) Amlodipine Besylate (Amlodipine 5 Mg Tablet) 5 mg PO NOW ONE Stop: 03/30/22 02:00 Last Admin: 03/30/22 02:27 Dose: 5 mg Documented By: MEHRDAD Amlodipine Besylate (Amlodipine 5 Mg Tablet) 5 mg PO DAILY [facility] Last Admin: 03/31/22 17:47 Dose: 5 mg Documented By: ANGEOL Apixaban (Apixaban 5 Mg Tablet) 5 mg PO BID [facility] Last Admin: 03/31/22 08:16 Dose: 5 mg Documented By: Admin: 03/30/22 20:53 Dose: 5 mg Documented By: SAHARA Aspirin (Aspirin 81 Mg Chew Tab) 324 mg PO NOW ONE Stop: 03/29/22 19:18 Last Admin: 03/29/22 19:25 Dose: 324 mg Documented By: ARTURO Atorvastatin Calcium (Atorvastatin 20 Mg Tablet) 10 mg PO BEDTIME [facility] Atropine Sulfate (Atropine 1 Mg/10 Ml Syringe) 1 mg IV NOW PRN PRN Reason: HR <40 with symptoms Gabapentin (Gabapentin 300 Mg Capsule) 900 mg PO BEDTIME [facility] Gabapentin (Gabapentin 300 Mg Capsule) 900 mg PO NOW ONE Stop: 03/30/22 02:10 Last Admin: 03/30/22 02:27 Dose: 900 mg Documented By: MEHRDAD Gabapentin (Gabapentin 300 Mg Capsule) 1,200 mg PO BID [facility] Last Admin: 03/30/22 20:54 Dose: 300 mg Documented By: SAHARA Gabapentin (Gabapentin 300 Mg Capsule) 600 mg PO DAILY [facility] Last Admin: 03/31/22 08:16 Dose: 600 mg Documented By: ANGELO Gabapentin (Gabapentin 300 Mg Capsule) 300 mg PO BEDTIME [facility] Lisinopril (Lisinopril 20 Mg Tablet) 20 mg PO NOW ONE Stop: 03/30/22 02:02 Last Admin: 03/30/22 02:27 Dose: 20 mg Documented By: MEHRDAD Lisinopril (Lisinopril 20 Mg Tablet) 20 mg PO QPM [facility] Last Admin: 03/31/22 17:47 Dose: 20 mg Documented By: Admin: 03/30/22 18:13 Dose: 20 mg Documented By: SIRIA Metoprolol Succinate (Metoprolol Er 25 Mg Tablet) 25 mg PO DAILY [facility] Non-Formulary Medication (Linaclotide [Linzess]) 145 mcg PO BEDTIME [facility] Solifenacin [ Vesicare] 10 Mg Tablet 10 mg PO BEDTIME [facility] Home Med Storage 0 each PO PRN PRN PRN Reason: HOME MED STORAGE Solifenacin (Solifenacin 5 Mg Tablet) 5 mg PO DAILY [facility] Solifenacin (Solifenacin 5 Mg Tablet) 5 mg PO DAILY ONE Stop: 03/30/22 02:09 Last Admin: 03/30/22 02:28 Dose: Not Given Documented By: MEHRDAD Solifenacin (Solifenacin 5 Mg Tablet) 5 mg PO DAILY [facility] Last Admin: 03/30/22 11:58 Dose: 5 mg Documented By: LYDIA Tamsulosin HCl (Tamsulosin 0.4 Mg Capsule) 0.8 mg PO NOW ONE Stop: 03/30/22 02:00 Last Admin: 03/30/22 02:27 Dose: 0.8 mg Documented By: MEHRDAD Tamsulosin HCl (Tamsulosin 0.4 Mg Capsule) 0.8 mg PO QPM [facility] Last Admin: 03/31/22 18:23 Dose: 0.8 mg Documented By: Admin: 03/30/22 20:53 Dose: 0.8 mg Documented By: SAHARA Reevaluation(s) Reevaluation #1: Reviewed with patient and son, they do agree for possible transfer given bradycardia and symptomatic. Also for continuity of care. Will need evaluation by electrophysiology Cardiology which we do not have here Time: 12:27 Consultations Consultation #1: Spoke with Dr. Kang, cardiology on-call. At this time regarding the low heart rate, do not give metoprolol at this time. Patient will need be admitted for the chest pain. He recommends treadmill stress test and echocardiogram. Not nuclear stress test. If no angina or chest pain with treadmill stress test, then do not proceed with nuclear stress test. Would recommend in the future decreased to half tab of metoprolol daily. And if continues to have of less than 50 heart rate then discontinue but overall Time: 13:17 Consultation #2: Spoke with hospitalist, Dr. Miles. At this time there are no stress test available until Sunday. Patient will need to be transferred Time: 14:08 Vital Signs Vital signs: Vital Signs - 8 hr 03/30/22 07:00 03/30/22 07:01 03/30/22 07:01 Pulse Rate 52 L 50 L Respiratory Rate 15 14 Blood Pressure 131/63 Pulse Oximetry 97 97 03/30/22 07:30 03/30/22 08:00 03/30/22 08:00 Pulse Rate 45 L 49 L Respiratory Rate 12 14 Blood Pressure 149/65 H Pulse Oximetry 96 97 03/30/22 08:43 03/30/22 09:00 03/30/22 09:30 Pulse Rate 63 69 59 L Respiratory Rate 16 16 20 Blood Pressure Pulse Oximetry 03/30/22 10:00 03/30/22 10:30 03/30/22 11:00 Pulse Rate 51 L 50 L 43 L Respiratory Rate 15 13 14 Blood Pressure Pulse Oximetry 03/30/22 11:30 Pulse Rate 58 L Respiratory Rate 21 Blood Pressure Pulse Oximetry <Norm Kang, DO - Last Filed: 03/31/22 01:59> Orders Ordered: Discontinued Medications Acetaminophen (Acetaminophen 325 Mg Tablet) 650 mg PO Q6HR PRN PRN Reason: Fever/Mild Pain (1-3) Amlodipine Besylate (Amlodipine 5 Mg Tablet) 5 mg PO NOW ONE Stop: 03/30/22 02:00 Last Admin: 03/30/22 02:27 Dose: 5 mg Documented By: MEHRDAD Amlodipine Besylate (Amlodipine 5 Mg Tablet) 5 mg PO DAILY [facility] Last Admin: 03/31/22 17:47 Dose: 5 mg Documented By: ANGELO Apixaban (Apixaban 5 Mg Tablet) 5 mg PO BID [facility] Last Admin: 03/31/22 08:16 Dose: 5 mg Documented By: Admin: 03/30/22 20:53 Dose: 5 mg Documented By: SAHARA Aspirin (Aspirin 81 Mg Chew Tab) 324 mg PO NOW ONE Stop: 03/29/22 19:18 Last Admin: 03/29/22 19:25 Dose: 324 mg Documented By: ARTURO Atorvastatin Calcium (Atorvastatin 20 Mg Tablet) 10 mg PO BEDTIME [facility] Atropine Sulfate (Atropine 1 Mg/10 Ml Syringe) 1 mg IV NOW PRN PRN Reason: HR <40 with symptoms Gabapentin (Gabapentin 300 Mg Capsule) 900 mg PO BEDTIME [facility] Gabapentin (Gabapentin 300 Mg Capsule) 900 mg PO NOW ONE Stop: 03/30/22 02:10 Last Admin: 03/30/22 02:27 Dose: 900 mg Documented By: MEHRDAD Gabapentin (Gabapentin 300 Mg Capsule) 1,200 mg PO BID [facility] Last Admin: 03/30/22 20:54 Dose: 300 mg Documented By: SAHARA Gabapentin (Gabapentin 300 Mg Capsule) 600 mg PO DAILY [facility] Last Admin: 03/31/22 08:16 Dose: 600 mg Documented By: ANGELO Gabapentin (Gabapentin 300 Mg Capsule) 300 mg PO BEDTIME [facility] Lisinopril (Lisinopril 20 Mg Tablet) 20 mg PO NOW ONE Stop: 03/30/22 02:02 Last Admin: 03/30/22 02:27 Dose: 20 mg Documented By: MEHRDAD Lisinopril (Lisinopril 20 Mg Tablet) 20 mg PO QPM [facility] Last Admin: 03/31/22 17:47 Dose: 20 mg Documented By: Admin: 03/30/22 18:13 Dose: 20 mg Documented By: SIRIA Metoprolol Succinate (Metoprolol Er 25 Mg Tablet) 25 mg PO DAILY [facility] Non-Formulary Medication (Linaclotide [Linzess]) 145 mcg PO BEDTIME [facility] Solifenacin [ Vesicare] 10 Mg Tablet 10 mg PO BEDTIME [facility] Home Med Storage 0 each PO PRN PRN PRN Reason: HOME MED STORAGE Solifenacin (Solifenacin 5 Mg Tablet) 5 mg PO DAILY [facility] Solifenacin (Solifenacin 5 Mg Tablet) 5 mg PO DAILY ONE Stop: 03/30/22 02:09 Last Admin: 03/30/22 02:28 Dose: Not Given Documented By: MEHRDAD Solifenacin (Solifenacin 5 Mg Tablet) 5 mg PO DAILY [facility] Last Admin: 03/30/22 11:58 Dose: 5 mg Documented By: LYDIA Tamsulosin HCl (Tamsulosin 0.4 Mg Capsule) 0.8 mg PO NOW ONE Stop: 03/30/22 02:00 Last Admin: 03/30/22 02:27 Dose: 0.8 mg Documented By: MEHRDAD Tamsulosin HCl (Tamsulosin 0.4 Mg Capsule) 0.8 mg PO QPM [facility] Last Admin: 03/31/22 18:23 Dose: 0.8 mg Documented By: Admin: 03/30/22 20:53 Dose: 0.8 mg Documented By: SAHARA Vital Signs Vital signs: Vital Signs - 8 hr 03/30/22 07:00 03/30/22 07:01 03/30/22 07:01 Pulse Rate 52 L 50 L Respiratory Rate 15 14 Blood Pressure 131/63 Pulse Oximetry 97 97 03/30/22 07:30 03/30/22 08:00 03/30/22 08:00 Pulse Rate 45 L 49 L Respiratory Rate 12 14 Blood Pressure 149/65 H Pulse Oximetry 96 97 03/30/22 08:43 03/30/22 09:00 03/30/22 09:30 Pulse Rate 63 69 59 L Respiratory Rate 16 16 20 Blood Pressure Pulse Oximetry 03/30/22 10:00 03/30/22 10:30 03/30/22 11:00 Pulse Rate 51 L 50 L 43 L Respiratory Rate 15 13 14 Blood Pressure Pulse Oximetry 03/30/22 11:30 Pulse Rate 58 L Respiratory Rate 21 Blood Pressure Pulse Oximetry <Jaelyn Molina, DO - Last Filed: 03/30/22 21:17> Course Course Narrative: No new issues during course of stay 6:00 p.m.. Sign out to Dr. Kang, patient is on waiting list for [facility]. Patient sees Dr. Stephens. Patient needs nuclear stress test as well as for heart rate monitoring. Metoprolol to be held tonight. Reviewed in the morning whether half dose to continue. morning labs and meds to be done 03/30/22 [place]: Patient signed out to myself by Dr. Kang while waiting for placement at [facility]. Patient seen independently evaluated by myself. Patient had suspected to be atypical unstable angina. Patient has been chest pain-free in the department, so far troponins have been negative without any acute changes. Goal is for stress testing with transfer to a facility that has Cardiology available. Patient labs show stable anemia, inner of 1.5, normal renal function with no other major electrolyte abnormalities and negative troponin overnight. Patient had his daily meds this morning at about 0200 today and had aspirin 12 hours ago. EKG shows AFib with slow ventricular response with a rate of [address] changes but Q-wave in lead 3. Patient has prior EKG from 03/16/2021 which also shows AFib with no dynamic changes. While patient is here in the department he states he would like to eat leave Against Medical Advice as there are no beds available in unlikely to transfer today. After discussion patient needs stress testing which we have available here. Discussed with our hospitalist, he is willing to accept for observation if we can get a stress test tomorrow. Spoke with the DI lab and they have a slot available for nuclear medicine stress test tomorrow and will put the patient in that slot. Order for echo is in and they are able to perform that today several more hours and Dr. Miles our hospitalist kindly accepts. Patient is aware that if his stress test is positive likely or potentially need transfer for facility with inpatient cardiology but this will move his treatment forward. Orders Ordered: Discontinued Medications Acetaminophen (Acetaminophen 325 Mg Tablet) 650 mg PO Q6HR PRN PRN Reason: Fever/Mild Pain (1-3) Amlodipine Besylate (Amlodipine 5 Mg Tablet) 5 mg PO NOW ONE Stop: 03/30/22 02:00 Last Admin: 03/30/22 02:27 Dose: 5 mg Documented By: MEHRDAD Amlodipine Besylate (Amlodipine 5 Mg Tablet) 5 mg PO DAILY [facility] Last Admin: 03/31/22 17:47 Dose: 5 mg Documented By: ANGELO Apixaban (Apixaban 5 Mg Tablet) 5 mg PO BID [facility] Last Admin: 03/31/22 08:16 Dose: 5 mg Documented By: Admin: 03/30/22 20:53 Dose: 5 mg Documented By: SAHARA Aspirin (Aspirin 81 Mg Chew Tab) 324 mg PO NOW ONE Stop: 03/29/22 19:18 Last Admin: 03/29/22 19:25 Dose: 324 mg Documented By: ARTURO Atorvastatin Calcium (Atorvastatin 20 Mg Tablet) 10 mg PO BEDTIME [facility] Atropine Sulfate (Atropine 1 Mg/10 Ml Syringe) 1 mg IV NOW PRN PRN Reason: HR <40 with symptoms Gabapentin (Gabapentin 300 Mg Capsule) 900 mg PO BEDTIME [facility] Gabapentin (Gabapentin 300 Mg Capsule) 900 mg PO NOW ONE Stop: 03/30/22 02:10 Last Admin: 03/30/22 02:27 Dose: 900 mg Documented By: MEHRDAD Gabapentin (Gabapentin 300 Mg Capsule) 1,200 mg PO BID [facility] Last Admin: 03/30/22 20:54 Dose: 300 mg Documented By: SAHARA Gabapentin (Gabapentin 300 Mg Capsule) 600 mg PO DAILY [facility] Last Admin: 03/31/22 08:16 Dose: 600 mg Documented By: ANGELO Gabapentin (Gabapentin 300 Mg Capsule) 300 mg PO BEDTIME [facility] Lisinopril (Lisinopril 20 Mg Tablet) 20 mg PO NOW ONE Stop: 03/30/22 02:02 Last Admin: 03/30/22 02:27 Dose: 20 mg Documented By: MEHRDAD Lisinopril (Lisinopril 20 Mg Tablet) 20 mg PO QPM [facility] Last Admin: 03/31/22 17:47 Dose: 20 mg Documented By: Admin: 03/30/22 18:13 Dose: 20 mg Documented By: SIRIA Metoprolol Succinate (Metoprolol Er 25 Mg Tablet) 25 mg PO DAILY [facility] Non-Formulary Medication (Linaclotide [Linzess]) 145 mcg PO BEDTIME [facility] Solifenacin [ Vesicare] 10 Mg Tablet 10 mg PO BEDTIME [facility] Home Med Storage 0 each PO PRN PRN PRN Reason: HOME MED STORAGE Solifenacin (Solifenacin 5 Mg Tablet) 5 mg PO DAILY [facility] Solifenacin (Solifenacin 5 Mg Tablet) 5 mg PO DAILY ONE Stop: 03/30/22 02:09 Last Admin: 03/30/22 02:28 Dose: Not Given Documented By: MEHRDAD Solifenacin (Solifenacin 5 Mg Tablet) 5 mg PO DAILY [facility] Last Admin: 03/30/22 11:58 Dose: 5 mg Documented By: LYDIA Tamsulosin HCl (Tamsulosin 0.4 Mg Capsule) 0.8 mg PO NOW ONE Stop: 03/30/22 02:00 Last Admin: 03/30/22 02:27 Dose: 0.8 mg Documented By: MEHRDAD Tamsulosin HCl (Tamsulosin 0.4 Mg Capsule) 0.8 mg PO QPM [facility] Last Admin: 03/31/22 18:23 Dose: 0.8 mg Documented By: Admin: 03/30/22 20:53 Dose: 0.8 mg Documented By: SAHARA Vital Signs Vital signs: Vital Signs - 8 hr 03/30/22 07:00 03/30/22 07:01 03/30/22 07:01 Pulse Rate 52 L 50 L Respiratory Rate 15 14 Blood Pressure 131/63 Pulse Oximetry 97 97 03/30/22 07:30 03/30/22 08:00 03/30/22 08:00 Pulse Rate 45 L 49 L Respiratory Rate 12 14 Blood Pressure 149/65 H Pulse Oximetry 96 97 03/30/22 08:43 03/30/22 09:00 03/30/22 09:30 Pulse Rate 63 69 59 L Respiratory Rate 16 16 20 Blood Pressure Pulse Oximetry 03/30/22 10:00 03/30/22 10:30 03/30/22 11:00 Pulse Rate 51 L 50 L 43 L Respiratory Rate 15 13 14 Blood Pressure Pulse Oximetry 03/30/22 11:30 Pulse Rate 58 L Respiratory Rate 21 Blood Pressure Pulse Oximetry MDM - Chest Pain <Zackery Arshad MD - Last Filed: 04/04/22 04:03> Differential Diagnosis Differential diagnosis: Likely stable angina, unstable angina pectoris, atypical chest pain and other (Arrhythmia) Lab Data Result diagrams: 03/31/22 05:40 03/31/22 05:40 Labs: Lab Results 03/29/22 03/29/22 03/29/22 Range/Units 11:52 11:55 12:22 WBC 6.1 (4.5-11.0) X10^3/uL RBC 4.05 L (4.5-5.9) X10^6/uL Hgb 13.1 L (13.5-17.5) g/dL Hct 39.3 L (41-53) % MCV 97.1 (80-100) fL MCH 32.4 (26-34) PG MCHC 33.4 (30-36) % RDW 13.4 (11.6-14.8) % Plt Count 140 L (150-400) X10^3/uL Neut % (Auto) 74.9 (50-75) % Lymph % (Auto) 12.8 L (25-40) % Dillon % (Auto) 9.9 (3-14) % Eos % (Auto) 1.9 L (2-4) % Baso % (Auto) 0.5 (0-2) % Neut # (Auto) 4600 (1677-6217) /uL Lymph # (Auto) 800 L (7909-9280) /uL Dillon # (Auto) 600 (0-900) /uL Eos # (Auto) 100 (0-450) /uL Baso # (Auto) 0 (0-100) /uL PT 16.7 H (10.1-12.7) SECONDS INR 1.5 H (0.9-1.3) Sodium (137-145) mmol/L Potassium (3.4-5.1) mmol/L Chloride (98-107) mmol/L Carbon Dioxide (22-32) mmol/L BUN (9-20) mg/dL Creatinine (0.66-1.25) mg/dL Estimated GFR (>60) mL/min BUN/Creatinine Ratio (6-22) Glucose (80-110) mg/dL Hemoglobin A1c (4.0-6.0) % Calcium (8.4-10.2) mg/dL Magnesium (1.6-2.3) mg/dL Total Bilirubin (0.2-1.3) mg/dL AST (17-59) IU/L ALT (<50) IU/L Alkaline Phosphatase (38-126) U/L Total Creatine Kinase (55-170) U/L CK-MB (CK-2) CK-MB (CK-2) Rel Index Troponin I (0.01-0.034) ng/mL Total Protein (6.3-8.2) g/dL Albumin (3.5-5.0) g/dL Globulin (1.7-4.1) g/dL Albumin/Globulin Ratio (1.0-2.8) Triglycerides (35-150) mg/dL Cholesterol (140-199) mg/dL LDL Cholesterol, Calc (<100) mg/dL HDL Cholesterol (40-60) mg/dL Lipase (23-300) U/L SARS-CoV-2 (PCR) Negative (Negative) 03/29/22 03/29/22 03/30/22 Range/Units 12:22 18:14 06:59 WBC 4.7 (4.5-11.0) X10^3/uL RBC 3.93 L (4.5-5.9) X10^6/uL Hgb 12.8 L (13.5-17.5) g/dL Hct 38.1 L (41-53) % MCV 96.8 (80-100) fL MCH 32.6 (26-34) PG MCHC 33.6 (30-36) % RDW 13.2 (11.6-14.8) % Plt Count 134 L (150-400) X10^3/uL Neut % (Auto) 66.0 (50-75) % Lymph % (Auto) 18.7 L (25-40) % Dillon % (Auto) 11.5 (3-14) % Eos % (Auto) 3.3 (2-4) % Baso % (Auto) 0.5 (0-2) % Neut # (Auto) 3100 (9329-2322) /uL Lymph # (Auto) 900 L (2570-4995) /uL Dillon # (Auto) 500 (0-900) /uL Eos # (Auto) 200 (0-450) /uL Baso # (Auto) 0 (0-100) /uL PT (10.1-12.7) SECONDS INR (0.9-1.3) Sodium 139 (137-145) mmol/L Potassium 4.6 (3.4-5.1) mmol/L Chloride 112 H (98-107) mmol/L Carbon Dioxide 23 (22-32) mmol/L BUN 25 H (9-20) mg/dL Creatinine 0.92 (0.66-1.25) mg/dL Estimated GFR > 60 (>60) mL/min BUN/Creatinine Ratio 27.2 H (6-22) Glucose 113 H (80-110) mg/dL Hemoglobin A1c (4.0-6.0) % Calcium 8.0 L (8.4-10.2) mg/dL Magnesium 2.0 (1.6-2.3) mg/dL Total Bilirubin 0.5 (0.2-1.3) mg/dL AST 20 (17-59) IU/L ALT 15 (<50) IU/L Alkaline Phosphatase 44 (38-126) U/L Total Creatine Kinase 73 71 (55-170) U/L CK-MB (CK-2) TNP TNP CK-MB (CK-2) Rel Index TNP TNP Troponin I < 0.012 < 0.012 (0.01-0.034) ng/mL Total Protein 6.1 L (6.3-8.2) g/dL Albumin 3.3 L (3.5-5.0) g/dL Globulin 2.8 (1.7-4.1) g/dL Albumin/Globulin Ratio 1.2 (1.0-2.8) Triglycerides (35-150) mg/dL Cholesterol (140-199) mg/dL LDL Cholesterol, Calc (<100) mg/dL HDL Cholesterol (40-60) mg/dL Lipase 21 L (23-300) U/L SARS-CoV-2 (PCR) (Negative) 03/30/22 03/30/22 03/30/22 Range/Units 06:59 06:59 06:59 WBC (4.5-11.0) X10^3/uL RBC (4.5-5.9) X10^6/uL Hgb (13.5-17.5) g/dL Hct (41-53) % MCV (80-100) fL MCH (26-34) PG MCHC (30-36) % RDW (11.6-14.8) % Plt Count (150-400) X10^3/uL Neut % (Auto) (50-75) % Lymph % (Auto) (25-40) % Dillon % (Auto) (3-14) % Eos % (Auto) (2-4) % Baso % (Auto) (0-2) % Neut # (Auto) (1276-2144) /uL Lymph # (Auto) (0471-0466) /uL Dillon # (Auto) (0-900) /uL Eos # (Auto) (0-450) /uL Baso # (Auto) (0-100) /uL PT (10.1-12.7) SECONDS INR (0.9-1.3) Sodium 137 (137-145) mmol/L Potassium 4.5 (3.4-5.1) mmol/L Chloride 108 H (98-107) mmol/L Carbon Dioxide 27 (22-32) mmol/L BUN 22 H (9-20) mg/dL Creatinine 0.89 (0.66-1.25) mg/dL Estimated GFR > 60 (>60) mL/min BUN/Creatinine Ratio 24.7 H (6-22) Glucose 111 H (80-110) mg/dL Hemoglobin A1c 5.9 (4.0-6.0) % Calcium 8.3 L (8.4-10.2) mg/dL Magnesium (1.6-2.3) mg/dL Total Bilirubin 0.5 (0.2-1.3) mg/dL AST 19 (17-59) IU/L ALT 15 (<50) IU/L Alkaline Phosphatase 49 (38-126) U/L Total Creatine Kinase 58 (55-170) U/L CK-MB (CK-2) TNP CK-MB (CK-2) Rel Index TNP Troponin I < 0.012 (0.01-0.034) ng/mL Total Protein 6.2 L (6.3-8.2) g/dL Albumin 3.3 L (3.5-5.0) g/dL Globulin 2.9 (1.7-4.1) g/dL Albumin/Globulin Ratio 1.1 (1.0-2.8) Triglycerides 57 (35-150) mg/dL Cholesterol 113 L (140-199) mg/dL LDL Cholesterol, Calc 59 (<100) mg/dL HDL Cholesterol 43 (40-60) mg/dL Lipase (23-300) U/L SARS-CoV-2 (PCR) (Negative) Imaging Data Chest x-ray: Radiologist's Impression: [address] [address] XRay Report Signed Patient: Kenneth Ward Jr MR#: [id number] : 1935 Acct:[id number] Age/Sex: 86 / M Date of Service: 03/29/22 Loc: ED Accession Number: [id number] ?? Procedure: XR chest 1V Ordering Provider: Zackery Arshad MD PROCEDURE:? XR CHEST 1V ? INDICATIONS:? chest pain ? TECHNIQUE:? One view of the chest was acquired.? ? COMPARISON:? [facility], CR, XR CHEST 1V, 03/16/2021, 14:06.? [facility], CR, XR CHEST 1V, 01/26/2021, 5:09.? [facility], CR, XR CHEST 1V, 10/20/2020, 11:14. ? FINDINGS:? ? Surgical changes and devices:? None.? ? Lungs and pleura:? On this semiupright portable chest examination, no large pneumothorax or large pleural effusions are seen.? No focal infiltrates are seen.? Low lung volumes are noted. This causes a crowded appearance to the lung markings and limits evaluation.? ? Mediastinum:? Mediastinal contours appear normal.? Heart size is moderately enlarged.? ? Bones and chest wall:? No suspicious bony lesions.? Age-appropriate bony degenerative changes are seen.? Overlying soft tissues appear unremarkable.? ? ? IMPRESSION:? Moderate cardiomegaly. ? Low lung volumes, without a significant pulmonary abnormality. ? ? Dictated by: Liam Ulloa M.D. on 03/29/2022 at 12:24 ? ? Approved by: Liam Ulloa M.D. on 03/29/2022 at 12:25 ? ECG Data Interpretation: Atrial fibrillation with slow ventricular response rate [address] elevation or depression MDM Narrative Medical decision making narrative: Appropriate for admission for chest pain rule out stress test and bradycardia. Reviewed with son and patient and agree for admit. I spoke with Dr. Kang cardiology at this time no indication to transfer patient. Can have treadmill stress test and echocardiogram in the morning. <Norm Kang, - Last Filed: 08/05/22 01:59> Lab Data Labs: Lab Results 03/29/22 03/29/22 03/29/22 Range/Units 11:52 11:55 12:22 WBC 6.1 (4.5-11.0) X10^3/uL RBC 4.05 L (4.5-5.9) X10^6/uL Hgb 13.1 L (13.5-17.5) g/dL Hct 39.3 L (41-53) % MCV 97.1 (80-100) fL MCH 32.4 (26-34) PG MCHC 33.4 (30-36) % RDW 13.4 (11.6-14.8) % Plt Count 140 L (150-400) X10^3/uL Neut % (Auto) 74.9 (50-75) % Lymph % (Auto) 12.8 L (25-40) % Dillon % (Auto) 9.9 (3-14) % Eos % (Auto) 1.9 L (2-4) % Baso % (Auto) 0.5 (0-2) % Neut # (Auto) 4600 (3192-2707) /uL Lymph # (Auto) 800 L (5143-5862) /uL Dillon # (Auto) 600 (0-900) /uL Eos # (Auto) 100 (0-450) /uL Baso # (Auto) 0 (0-100) /uL PT 16.7 H (10.1-12.7) SECONDS INR 1.5 H (0.9-1.3) Sodium (137-145) mmol/L Potassium (3.4-5.1) mmol/L Chloride (98-107) mmol/L Carbon Dioxide (22-32) mmol/L BUN (9-20) mg/dL Creatinine (0.66-1.25) mg/dL Estimated GFR (>60) mL/min BUN/Creatinine Ratio (6-22) Glucose (80-110) mg/dL Hemoglobin A1c (4.0-6.0) % Calcium (8.4-10.2) mg/dL Magnesium (1.6-2.3) mg/dL Total Bilirubin (0.2-1.3) mg/dL AST (17-59) IU/L ALT (<50) IU/L Alkaline Phosphatase (38-126) U/L Total Creatine Kinase (55-170) U/L CK-MB (CK-2) CK-MB (CK-2) Rel Index Troponin I (0.01-0.034) ng/mL Total Protein (6.3-8.2) g/dL Albumin (3.5-5.0) g/dL Globulin (1.7-4.1) g/dL Albumin/Globulin Ratio (1.0-2.8) Triglycerides (35-150) mg/dL Cholesterol (140-199) mg/dL LDL Cholesterol, Calc (<100) mg/dL HDL Cholesterol (40-60) mg/dL Lipase (23-300) U/L SARS-CoV-2 (PCR) Negative (Negative) 03/29/22 03/29/22 03/30/22 Range/Units 12:22 18:14 06:59 WBC 4.7 (4.5-11.0) X10^3/uL RBC 3.93 L (4.5-5.9) X10^6/uL Hgb 12.8 L (13.5-17.5) g/dL Hct 38.1 L (41-53) % MCV 96.8 (80-100) fL MCH 32.6 (26-34) PG MCHC 33.6 (30-36) % RDW 13.2 (11.6-14.8) % Plt Count 134 L (150-400) X10^3/uL Neut % (Auto) 66.0 (50-75) % Lymph % (Auto) 18.7 L (25-40) % Dillon % (Auto) 11.5 (3-14) % Eos % (Auto) 3.3 (2-4) % Baso % (Auto) 0.5 (0-2) % Neut # (Auto) 3100 (5766-7034) /uL Lymph # (Auto) 900 L (6223-3165) /uL Dillon # (Auto) 500 (0-900) /uL Eos # (Auto) 200 (0-450) /uL Baso # (Auto) 0 (0-100) /uL PT (10.1-12.7) SECONDS INR (0.9-1.3) Sodium 139 (137-145) mmol/L Potassium 4.6 (3.4-5.1) mmol/L Chloride 112 H (98-107) mmol/L Carbon Dioxide 23 (22-32) mmol/L BUN 25 H (9-20) mg/dL Creatinine 0.92 (0.66-1.25) mg/dL Estimated GFR > 60 (>60) mL/min BUN/Creatinine Ratio 27.2 H (6-22) Glucose 113 H (80-110) mg/dL Hemoglobin A1c (4.0-6.0) % Calcium 8.0 L (8.4-10.2) mg/dL Magnesium 2.0 (1.6-2.3) mg/dL Total Bilirubin 0.5 (0.2-1.3) mg/dL AST 20 (17-59) IU/L ALT 15 (<50) IU/L Alkaline Phosphatase 44 (38-126) U/L Total Creatine Kinase 73 71 (55-170) U/L CK-MB (CK-2) TNP TNP CK-MB (CK-2) Rel Index TNP TNP Troponin I < 0.012 < 0.012 (0.01-0.034) ng/mL Total Protein 6.1 L (6.3-8.2) g/dL Albumin 3.3 L (3.5-5.0) g/dL Globulin 2.8 (1.7-4.1) g/dL Albumin/Globulin Ratio 1.2 (1.0-2.8) Triglycerides (35-150) mg/dL Cholesterol (140-199) mg/dL LDL Cholesterol, Calc (<100) mg/dL HDL Cholesterol (40-60) mg/dL Lipase 21 L (23-300) U/L SARS-CoV-2 (PCR) (Negative) 03/30/22 03/30/22 03/30/22 Range/Units 06:59 06:59 06:59 WBC (4.5-11.0) X10^3/uL RBC (4.5-5.9) X10^6/uL Hgb (13.5-17.5) g/dL Hct (41-53) % MCV (80-100) fL MCH (26-34) PG MCHC (30-36) % RDW (11.6-14.8) % Plt Count (150-400) X10^3/uL Neut % (Auto) (50-75) % Lymph % (Auto) (25-40) % Dillon % (Auto) (3-14) % Eos % (Auto) (2-4) % Baso % (Auto) (0-2) % Neut # (Auto) (9352-0788) /uL Lymph # (Auto) (4421-8935) /uL Dillon # (Auto) (0-900) /uL Eos # (Auto) (0-450) /uL Baso # (Auto) (0-100) /uL PT (10.1-12.7) SECONDS INR (0.9-1.3) Sodium 137 (137-145) mmol/L Potassium 4.5 (3.4-5.1) mmol/L Chloride 108 H (98-107) mmol/L Carbon Dioxide 27 (22-32) mmol/L BUN 22 H (9-20) mg/dL Creatinine 0.89 (0.66-1.25) mg/dL Estimated GFR > 60 (>60) mL/min BUN/Creatinine Ratio 24.7 H (6-22) Glucose 111 H (80-110) mg/dL Hemoglobin A1c 5.9 (4.0-6.0) % Calcium 8.3 L (8.4-10.2) mg/dL Magnesium (1.6-2.3) mg/dL Total Bilirubin 0.5 (0.2-1.3) mg/dL AST 19 (17-59) IU/L ALT 15 (<50) IU/L Alkaline Phosphatase 49 (38-126) U/L Total Creatine Kinase 58 (55-170) U/L CK-MB (CK-2) TNP CK-MB (CK-2) Rel Index TNP Troponin I < 0.012 (0.01-0.034) ng/mL Total Protein 6.2 L (6.3-8.2) g/dL Albumin 3.3 L (3.5-5.0) g/dL Globulin 2.9 (1.7-4.1) g/dL Albumin/Globulin Ratio 1.1 (1.0-2.8) Triglycerides 57 (35-150) mg/dL Cholesterol 113 L (140-199) mg/dL LDL Cholesterol, Calc 59 (<100) mg/dL HDL Cholesterol 43 (40-60) mg/dL Lipase (23-300) U/L SARS-CoV-2 (PCR) (Negative) MDM Narrative Medical decision making narrative: Appropriate for admission for chest pain rule out stress test and bradycardia. Reviewed with son and patient and agree for admit. I spoke with Dr. Kang cardiology at this time no indication to transfer patient. Can have treadmill stress test and echocardiogram in the morning. [1800] (Jorge Luis) Patient received in sign out from Dr. Castaneda]. I have reviewed the clinical course and performed an independent history and physical exam. No current issues, on wait list for [facility], nighttime meds ordered, morning labs ordered 0500 -no significant issues overnight 0640 - in top 3 in line at [facility]. <Jaelyn Molina DO - Last Filed: 03/30/22 21:17> Lab Data Labs: Lab Results 03/29/22 03/29/22 03/29/22 Range/Units 11:52 11:55 12:22 WBC 6.1 (4.5-11.0) X10^3/uL RBC 4.05 L (4.5-5.9) X10^6/uL Hgb 13.1 L (13.5-17.5) g/dL Hct 39.3 L (41-53) % MCV 97.1 (80-100) fL MCH 32.4 (26-34) PG MCHC 33.4 (30-36) % RDW 13.4 (11.6-14.8) % Plt Count 140 L (150-400) X10^3/uL Neut % (Auto) 74.9 (50-75) % Lymph % (Auto) 12.8 L (25-40) % Dillon % (Auto) 9.9 (3-14) % Eos % (Auto) 1.9 L (2-4) % Baso % (Auto) 0.5 (0-2) % Neut # (Auto) 4600 (3170-5373) /uL Lymph # (Auto) 800 L (9907-9052) /uL Dillon # (Auto) 600 (0-900) /uL Eos # (Auto) 100 (0-450) /uL Baso # (Auto) 0 (0-100) /uL PT 16.7 H (10.1-12.7) SECONDS INR 1.5 H (0.9-1.3) Sodium (137-145) mmol/L Potassium (3.4-5.1) mmol/L Chloride (98-107) mmol/L Carbon Dioxide (22-32) mmol/L BUN (9-20) mg/dL Creatinine (0.66-1.25) mg/dL Estimated GFR (>60) mL/min BUN/Creatinine Ratio (6-22) Glucose (80-110) mg/dL Hemoglobin A1c (4.0-6.0) % Calcium (8.4-10.2) mg/dL Magnesium (1.6-2.3) mg/dL Total Bilirubin (0.2-1.3) mg/dL AST (17-59) IU/L ALT (<50) IU/L Alkaline Phosphatase (38-126) U/L Total Creatine Kinase (55-170) U/L CK-MB (CK-2) CK-MB (CK-2) Rel Index Troponin I (0.01-0.034) ng/mL Total Protein (6.3-8.2) g/dL Albumin (3.5-5.0) g/dL Globulin (1.7-4.1) g/dL Albumin/Globulin Ratio (1.0-2.8) Triglycerides (35-150) mg/dL Cholesterol (140-199) mg/dL LDL Cholesterol, Calc (<100) mg/dL HDL Cholesterol (40-60) mg/dL Lipase (23-300) U/L SARS-CoV-2 (PCR) Negative (Negative) 03/29/22 03/29/22 03/30/22 Range/Units 12:22 18:14 06:59 WBC 4.7 (4.5-11.0) X10^3/uL RBC 3.93 L (4.5-5.9) X10^6/uL Hgb 12.8 L (13.5-17.5) g/dL Hct 38.1 L (41-53) % MCV 96.8 (80-100) fL MCH 32.6 (26-34) PG MCHC 33.6 (30-36) % RDW 13.2 (11.6-14.8) % Plt Count 134 L (150-400) X10^3/uL Neut % (Auto) 66.0 (50-75) % Lymph % (Auto) 18.7 L (25-40) % Dillon % (Auto) 11.5 (3-14) % Eos % (Auto) 3.3 (2-4) % Baso % (Auto) 0.5 (0-2) % Neut # (Auto) 3100 (6021-9721) /uL Lymph # (Auto) 900 L (7416-6531) /uL Dillon # (Auto) 500 (0-900) /uL Eos # (Auto) 200 (0-450) /uL Baso # (Auto) 0 (0-100) /uL PT (10.1-12.7) SECONDS INR (0.9-1.3) Sodium 139 (137-145) mmol/L Potassium 4.6 (3.4-5.1) mmol/L Chloride 112 H (98-107) mmol/L Carbon Dioxide 23 (22-32) mmol/L BUN 25 H (9-20) mg/dL Creatinine 0.92 (0.66-1.25) mg/dL Estimated GFR > 60 (>60) mL/min BUN/Creatinine Ratio 27.2 H (6-22) Glucose 113 H (80-110) mg/dL Hemoglobin A1c (4.0-6.0) % Calcium 8.0 L (8.4-10.2) mg/dL Magnesium 2.0 (1.6-2.3) mg/dL Total Bilirubin 0.5 (0.2-1.3) mg/dL AST 20 (17-59) IU/L ALT 15 (<50) IU/L Alkaline Phosphatase 44 (38-126) U/L Total Creatine Kinase 73 71 (55-170) U/L CK-MB (CK-2) TNP TNP CK-MB (CK-2) Rel Index TNP TNP Troponin I < 0.012 < 0.012 (0.01-0.034) ng/mL Total Protein 6.1 L (6.3-8.2) g/dL Albumin 3.3 L (3.5-5.0) g/dL Globulin 2.8 (1.7-4.1) g/dL Albumin/Globulin Ratio 1.2 (1.0-2.8) Triglycerides (35-150) mg/dL Cholesterol (140-199) mg/dL LDL Cholesterol, Calc (<100) mg/dL HDL Cholesterol (40-60) mg/dL Lipase 21 L (23-300) U/L SARS-CoV-2 (PCR) (Negative) 03/30/22 03/30/22 03/30/22 Range/Units 06:59 06:59 06:59 WBC (4.5-11.0) X10^3/uL RBC (4.5-5.9) X10^6/uL Hgb (13.5-17.5) g/dL Hct (41-53) % MCV (80-100) fL MCH (26-34) PG MCHC (30-36) % RDW (11.6-14.8) % Plt Count (150-400) X10^3/uL Neut % (Auto) (50-75) % Lymph % (Auto) (25-40) % Dillon % (Auto) (3-14) % Eos % (Auto) (2-4) % Baso % (Auto) (0-2) % Neut # (Auto) (2982-7250) /uL Lymph # (Auto) (3277-6656) /uL Dillon # (Auto) (0-900) /uL Eos # (Auto) (0-450) /uL Baso # (Auto) (0-100) /uL PT (10.1-12.7) SECONDS INR (0.9-1.3) Sodium 137 (137-145) mmol/L Potassium 4.5 (3.4-5.1) mmol/L Chloride 108 H (98-107) mmol/L Carbon Dioxide 27 (22-32) mmol/L BUN 22 H (9-20) mg/dL Creatinine 0.89 (0.66-1.25) mg/dL Estimated GFR > 60 (>60) mL/min BUN/Creatinine Ratio 24.7 H (6-22) Glucose 111 H (80-110) mg/dL Hemoglobin A1c 5.9 (4.0-6.0) % Calcium 8.3 L (8.4-10.2) mg/dL Magnesium (1.6-2.3) mg/dL Total Bilirubin 0.5 (0.2-1.3) mg/dL AST 19 (17-59) IU/L ALT 15 (<50) IU/L Alkaline Phosphatase 49 (38-126) U/L Total Creatine Kinase 58 (55-170) U/L CK-MB (CK-2) TNP CK-MB (CK-2) Rel Index TNP Troponin I < 0.012 (0.01-0.034) ng/mL Total Protein 6.2 L (6.3-8.2) g/dL Albumin 3.3 L (3.5-5.0) g/dL Globulin 2.9 (1.7-4.1) g/dL Albumin/Globulin Ratio 1.1 (1.0-2.8) Triglycerides 57 (35-150) mg/dL Cholesterol 113 L (140-199) mg/dL LDL Cholesterol, Calc 59 (<100) mg/dL HDL Cholesterol 43 (40-60) mg/dL Lipase (23-300) U/L SARS-CoV-2 (PCR) (Negative) MDM Narrative Medical decision making narrative: Appropriate for admission for chest pain rule out stress test and bradycardia. Reviewed with son and patient and agree for admit. I spoke with Dr. Kang cardiology at this time no indication to transfer patient. Can have treadmill stress test and echocardiogram in the morning. [1800] (Jorge Luis) Patient received in sign out from [[email or web address]]. I have reviewed the clinical course and performed an independent history and physical exam. No current issues, on wait list for [facility], nighttime meds ordered, morning labs ordered 0500 -no significant issues overnight 0640 - in top 3 in line at [facility]. 03/30/22 Mank: Patient was seen and evaluated by myself. This is an 86-year-old male who had some mild chest discomfort which she describes as sort of feeling hot like heartburn but not over the past week. Patient has had a little bit decreased exercise tolerance. He has been asymptomatic overnight. EKGs and labs have not show any acute changes. Patient is on wait list for [facility] in order to be transferred for stress test and echo but there is no bed available currently. There was discussion about keeping him here but case was discussed with hospitalist and felt he would benefit potentially from Cardiology which we do not have in-house. Discussed with patient he would like to leave Against Medical Advice, unlikely to be transferred today he still need stress testing and ECHO. Echos available for p.m. today. Re-contacted our hospitalist they have a spot for nuclear med stress testing tomorrow and patient is agreeable to stay overnight for stress testing. If positive he would need transfer by Cardiology but at least move his treatment forward at this time. Spoke with Dr. Miles who was somewhat familiar with the patient from yesterday reviewed his findings, his troponin is still ne gative he is chest pain-free at this time and he accepts for observation. Discharge Plan Departure Patient Disposition: Admitted as Observation Clinical Impression: Chest pain, Bradycardia on ECG Admit Date/Time: 03/30/22 14:48 Admit Provider: Fletcher Miles
--- NOTE | 2022-03-29 12:24 | PC.NURSE ---
at bedside for primary eval
[2022-03-29 12:34] LABS: INR 1.5 (0.9-1.3); Prothrombin Time 16.7 SECONDS (10.1-12.7)
[2022-03-29 12:47] LABS: Alanine Aminotransferase 15 IU/L (<50); Albumin 3.3 g/dL (3.5-5.0); Albumin Globulin Ratio 1.2 (1.0-2.8); Alkaline Phosphatase 44 U/L (38-126); Aspartate Aminotransferase 20 IU/L (17-59); BUN Creatinine Ratio 27.2 (6-22); Bilirubin Total 0.5 mg/dL (0.2-1.3); Blood Urea Nitrogen 25 mg/dL (9-20); Carbon Dioxide 23 mmol/L (22-32); Chloride 112 mmol/L (98-107); Creatine Kinase 73 U/L (55-170); Estimated Glomerular Filt Rate > 60 mL/min (>60); Globulin 2.8 g/dL (1.7-4.1); Glucose 113 mg/dL (80-110); HEMOLYSIS 20 (0-50); Lipase 21 U/L (23-300); Potassium 4.6 mmol/L (3.4-5.1); Sodium 139 mmol/L (137-145); Total Protein 6.1 g/dL (6.3-8.2)
[2022-03-29 12:56] LABS: Troponin I < 0.012 ng/mL (0.01-0.034)
[2022-03-29 18:49] LABS: Creatine Kinase 71 U/L (55-170)
[2022-03-29 19:01] LABS: Troponin I < 0.012 ng/mL (0.01-0.034)
[2022-03-29] MEDS: ASPIRIN 81 MG CHEW TAB 324 MG PO (19:25)
[2022-03-30] VITALS (33 sets, daily range): BP systolic 114–159; BP diastolic 56–99; PULSE 43–69; RESP 12–22; TEMP 36.2; O2SAT 95–99; BMI 30.9
[2022-03-30] MEDS: TAMSULOSIN 0.4 MG CAPSULE 0.8 MG PO ×2 (02:27→20:53)
[2022-03-30] MEDS: AMLODIPINE 5 MG TABLET PO (02:27)
[2022-03-30] MEDS: lisinopriL 20 MG TABLET PO ×2 (02:27→18:13)
[2022-03-30] MEDS: GABAPENTIN 300 MG CAPSULE 900 MG PO (02:27)
[2022-03-30 07:08] LABS: Add Manual Diff / Slide Review NO; Basophils Absolute Auto 0 /uL (0-100); Basophils Percent Auto 0.5 % (0-2); Eosinophils Absolute Auto 200 /uL (0-450); Eosinophils Percent Auto 3.3 % (2-4); Hematocrit 38.1 % (41-53); Hemoglobin 12.8 g/dL (13.5-17.5); Lymphocytes Absolute Auto 900 /uL (1100-4500); Lymphocytes Percent Auto 18.7 % (25-40); Mean Corpuscular HGB Conc 33.6 % (30-36); Mean Corpuscular Hemoglobin 32.6 PG (26-34); Mean Corpuscular Volume 96.8 fL (80-100); Monocytes Absolute Auto 500 /uL (0-900); Monocytes Percent Auto 11.5 % (3-14); Neutrophils Absolute Auto 3100 /uL (1500-7000); Platelet Count 134 X10^3/uL (150-400); Red Blood Cell Count 3.93 X10^6/uL (4.5-5.9); Red Cell Distribution Width 13.2 % (11.6-14.8); White Blood Cell Count 4.7 X10^3/uL (4.5-11.0)
[2022-03-30 07:20] LABS: Alanine Aminotransferase 15 IU/L (<50); Albumin 3.3 g/dL (3.5-5.0); Albumin Globulin Ratio 1.1 (1.0-2.8); Alkaline Phosphatase 49 U/L (38-126); Aspartate Aminotransferase 19 IU/L (17-59); BUN Creatinine Ratio 24.7 (6-22); Bilirubin Total 0.5 mg/dL (0.2-1.3); Blood Urea Nitrogen 22 mg/dL (9-20); Calcium 8.3 mg/dL (8.4-10.2); Carbon Dioxide 27 mmol/L (22-32); Chloride 108 mmol/L (98-107); Creatine Kinase 58 U/L (55-170); Estimated Glomerular Filt Rate > 60 mL/min (>60); Globulin 2.9 g/dL (1.7-4.1); Glucose 111 mg/dL (80-110); HEMOLYSIS < 15 (0-50); Potassium 4.5 mmol/L (3.4-5.1); Sodium 137 mmol/L (137-145); Total Protein 6.2 g/dL (6.3-8.2)
[2022-03-30 07:31] LABS: Troponin I < 0.012 ng/mL (0.01-0.034)
--- NOTE | 2022-03-30 10:33 | DI.ECHO.S_ITS ---
[place] [facility]---------+ [facility] +---------+ : : [address] : : : : [id number] : : : : Phone: [phone]+ Echocardiogram Report + + :Name: ALEJO COWAN Study Date: 03/30/2022 Height: 66 in : :[facility] ReadingLocation: Weight: 191 lb : : Gender: Male BSA: 2.0 m2 : :: 1935 Age: 86 yrs BP: 149/65 mmHg: :Reason For Study: ANGINA : :Ordering Physician: YRIS, : :JO Performed By: Monik Yoon : :Referring: JO ARNDT : + + Interpretation Summary The ejection fraction is estimated to be 55-60%. The mitral valve leaflets appear mildly thickened, but open well. There is mild mitral regurgitation. There is mild aortic regurgitation. There is trace tricuspid regurgitation. The left atrium is severely dilated. Compared to the prior echo report on 2020, there is no significant change. Procedure: A two-dimensional transthoracic echocardiogram with color flow and Doppler was performed. The study quality was technically adequate. Comparison is made with the echocardiogram of 09/04/2020. The heart rate ranged between 55-65 bpm during the study. Left Ventricle: The left ventricle is normal in size. There is mild concentric left ventricular hypertrophy. The ejection fraction is estimated to be 55-60%. Left ventricular wall motion is normal. Right Ventricle: The right ventricle is borderline dilated. The right ventricular systolic function is normal. Atria: The left atrium is severely dilated. The right atrium is severely dilated. There is no Doppler evidence for an interatrial shunt. Mitral Valve: The mitral valve leaflets appear mildly thickened, but open well. There is mild mitral annular calcification. There is no evidence of mitral valve prolapse. There is mild mitral regurgitation. The mitral regurgitant jet is eccentrically directed. Aortic Valve: The aortic valve is trileaflet. The aortic valve opens well. There is no aortic valve stenosis. There is mild aortic regurgitation. Tricuspid Valve: The tricuspid valve is not well visualized, but is grossly normal. There is trace tricuspid regurgitation. Pulmonic Valve: The pulmonic valve is not well visualized. There is no pulmonic valvular regurgitation. There is trace pulmonic regurgitation. Great Vessels: The aortic root is normal size. The dimensions of the ascending aorta are normal. The IVC is of normal diameter and collapses greater than 50% with a sniff. This suggests a low right atrial pressure of 3 mm Hg. Pericardium/ Pleura There is no pericardial effusion. There is no pleural effusion. MMode/2D Measurements & Calculations LVIDd: 5.2 cm LVOT diam: 2.2 cm LVIDs: 3.3 cm Ao root diam: 3.5 cm FS: 37.4 % asc Aorta Diam: 4.0 cm EPSS: 1.5 cm IVSd: 1.1 cm LVPWd: 0.70 cm LV mays. diameter/BSA (cm/m^2): 2.7 LV sys. diameter/BSA (cm/m^2): 1.7 LA A2 area: 30.2 cm2 RA long axis: 7.0 cm LA A4 area: 34.6 cm2 RA area: 29.8 cm2 LA length (vol): 7.5 cm RA vol: 107.8 ml LA vol: 118.3 ml RA : 55.0 ml/m2 LA vol index: 60.3 ml/m2 IVC diam: 2.0 cm RVD1 (basal): 4.1 cm RVD2 (mid): 3.1 cm TAPSE: 1.8 cm Doppler Measurements & Calculations Ao V2 max: 97.0 cm/sec LVOT Max Joaquin: 75.5 cm/sec Ao V2 mean: 64.0 cm/sec LV V1 max P.3 mmHg Ao max P.8 mmHg LV V1 VTI: 15.9 cm Ao mean P.9 mmHg LISSA(I,D): 3.1 cm2 Ao V2 VTI: 19.5 cm LISSA(V,D): 3.0 cm2 sev ratio: 0.82 LISSA indexed to BSA (cm^2/m^2): 1.6 MV E max joaquin: 137.7 cm/sec PA V2 max: 81.7 cm/sec MV A max joaquin: 37.6 cm/sec PA V2 mean: 55.8 cm/sec MV E/A: 3.7 PA mean P.4 mmHg Med Peak E' Joaquin: 9.6 cm/sec PA pr(Accel): 44.7 mmHg E/E' med: 14.4 Lat Peak E' Joaquin: 10.9 cm/sec E/E' lat: 12.6 E/e' average: 13.5 MV dec time: 0.19 sec SVLVOT): 60.7 ml Reading Physician:05:30 PM
--- NOTE | 2022-03-30 11:42 | PC.NURSE ---
Vesicare given @ 7348 after speaking with MD Molina and pharmacist to verify okay to give. order placed for accurate timing, unverified. pt takes vesicare at home. Son brought in labeled bottle. okay per .
[2022-03-30] MEDS: SOLIFENACIN 5 MG TABLET PO (11:58)
[2022-03-30 15:30] LABS: Cholesterol 113 mg/dL (140-199); HDL Cholesterol 43 mg/dL (40-60); LDL Cholesterol Calculated 59 mg/dL (<100); Triglycerides 57 mg/dL (35-150)
[2022-03-30 16:11] LABS: Hemoglobin A1C% w Est Avg Glu 5.9 % (4.0-6.0)
--- NOTE | 2022-03-30 18:44 | PM.HP.1 ---
History of Present Illness History of Present Illness Date Patient Seen: 03/30/22 Time Patient Seen: 17:00 Chief complaint: Chest pain Narrative: Kenneth Ward Jr. is an 86yo male with PMH of CAD s/p 5 stents, atrial fibrillation on Eliquis, hypertension, hyperlipidemia, obesity, BPH than previous prostate cancer who presents with chest pain. Patient describes it more as a ?chest discomfort? which was across his chest which she thought was heartburn but it did not respond to Tums. The pain came on suddenly and was not changed with exertion or at rest. He states the pain was constant and resolved after several hours in the ED. Patient states he has done nuclear stress tests in the past and thinks he can walk on a treadmill if needed, although he does have LE neuropathy. He denies NV, abd pain, diarrhea or LE edema. In the ED patient stayed overnight while attempting to transfer for stress test at other facility. During that time he apparently developed bradycardia to 22 and pacer pads were placed. He denied symptoms. Patient History Medical History Acute GI bleeding Balance problems (02/08/16) Chickenpox Coronary artery disease (2008) Coronary artery disease involving [place] coronary artery of [place] heart without angina pectoris (02/08/16) Essential hypertension (02/08/16) Gastroesophageal reflux disease (06/13/16) Headache Hearing loss (2014) History of malignant neoplasm of prostate (04/08/15) Hx of myocardial infarction (Unknown) Hypertension (Unknown) Left foot drop (03/06/17) Lumbar disc disease (2012) Measles Peripheral polyneuropathy (03/06/17) Polio (1950) Prostate cancer (2008) Pure hypercholesterolemia (02/08/16) Spinal stenosis of lumbar region (02/08/16) Statin intolerance (02/08/16) Vitamin D deficiency (11/21/16) Surgical History History of prostate surgery (2009) Hx of heart surgery (2008) Hx of hernia repair (Unknown) Status post laminectomy Family & Social History Family History Father No problems noted. Mother Cancer Grandfather No problems noted. Grandmother No problems noted. Grandfather No problems noted. Grandmother Cancer Family/Other Stroke Heart attack Coronary artery disease Congestive heart failure Social History: household members none Safety & Behavioral: Feels Safe in Current Yes Environment Been Physically Hurt or No Threatened By a Person Tobacco & Substance use: Tobacco type cigarettes Smoking Status Former smoker alcohol intake current alcohol intake frequency a few times a week Substance Use Type does not use Meds Home Medications and Allergies Home Medications Medication Instructions Recorded Confirmed Type CoQ-10 400 mg PO QPM ##0 11/21/16 03/29/22 History ascorbic acid (vitamin C) 500 mg 500 mg PO DAILY ##0 11/21/16 03/29/22 History tablet tamsulosin 0.4 mg capsule (Flomax) 0.8 mg PO QPM ##0 11/21/16 03/29/22 History [VITAMIN K2] 100 mcg PO QPM ##0 03/06/17 03/29/22 History alpha lipoic acid 600 mg capsule 600 mg PO BEDTIME 12/11/18 03/29/22 History lisinopril 20 mg tablet 20 mg PO QPM 12/11/18 03/29/22 History Vitamin D3 1,500 units PO DAILY 12/18/18 03/29/22 History metoprolol succinate 25 mg 25 mg PO DAILY 12/18/18 03/29/22 History tablet,extended release 24 hr rosuvastatin 5 mg tablet (Crestor) 5 mg PO DAILY 30 days #30 tabs 09/04/20 03/29/22 Rx apixaban 5 mg tablet (Eliquis) 5 mg PO BID 10/26/20 03/29/22 History solifenacin 10 mg tablet (Vesicare) 10 mg PO DAILY #30 tabs 04/26/21 03/29/22 Rx nitroglycerin 0.4 mg sublingual 0.4 mg sublingual Q5-15M PRN Chest 08/15/21 03/29/22 Rx tablet Pain #20 tabs amlodipine 10 mg tablet 5 mg PO DAILY 02/20/22 03/29/22 History gabapentin 300 mg capsule 1,200 mg PO BID 02/20/22 03/29/22 History linaclotide 145 mcg capsule 145 mcg PO DAILY 02/20/22 03/29/22 History (Linzess) ResMed AirSense Auto 03/27/22 03/30/22 History Allergies Allergy/AdvReac Type Severity Reaction Status Date / Time No Known Drug Allergies Allergy Verified 03/29/22 11:56 Review of Systems Review of Systems Narrative: All other systems reviewed with the patient and are negative unless otherwise stated. Exam Vital Signs (past 8 hours): - 03/30/22 11:00 03/30/22 11:30 Pulse Rate 43 L 58 L Respiratory Rate 14 21 Oxygen Delivery Method Room Air Narrative Exam Narrative: GEN: no acute distress, obese HEENT: moist mucous membranes, PERRL NECK: trachea midline, no JVD CV: regular rate and rhythm, no murmurs PULM: clear bilaterally ABD: soft, nontender, nondistended, no organomegaly EXT: warm and well perfused with no edema, poor sensation in distal LE's NEURO: awake, alert, oriented, no focal deficits Objective Labs Result Diagrams: 03/30/22 06:59 03/30/22 06:59 Labs: Laboratory Results - last 24 hr 03/29/22 03/30/22 03/30/22 18:14 06:59 06:59 WBC 4.7 RBC 3.93 L Hgb 12.8 L Hct 38.1 L MCV 96.8 MCH 32.6 MCHC 33.6 RDW 13.2 Plt Count 134 L Neut % (Auto) 66.0 Lymph % (Auto) 18.7 L [place] % (Auto) 11.5 Eos % (Auto) 3.3 Baso % (Auto) 0.5 Neut # (Auto) 3100 Lymph # (Auto) 900 L [place] # (Auto) 500 Eos # (Auto) 200 Baso # (Auto) 0 Sodium 137 Potassium 4.5 Chloride 108 H Carbon Dioxide 27 BUN 22 H Creatinine 0.89 Estimated GFR > 60 BUN/Creatinine Ratio 24.7 H Glucose 111 H Hemoglobin A1c Calcium 8.3 L Total Bilirubin 0.5 AST 19 ALT 15 Alkaline Phosphatase 49 Total Creatine Kinase 71 58 CK-MB (CK-2) TNP TNP CK-MB (CK-2) Rel Index TNP TNP Troponin I < 0.012 < 0.012 Total Protein 6.2 L Albumin 3.3 L Globulin 2.9 Albumin/Globulin Ratio 1.1 Triglycerides Cholesterol LDL Cholesterol, Calc HDL Cholesterol 03/30/22 03/30/22 06:59 06:59 WBC RBC Hgb Hct MCV MCH MCHC RDW Plt Count Neut % (Auto) Lymph % (Auto) [place] % (Auto) Eos % (Auto) Baso % (Auto) Neut # (Auto) Lymph # (Auto) [place] # (Auto) Eos # (Auto) Baso # (Auto) Sodium Potassium Chloride Carbon Dioxide BUN Creatinine Estimated GFR BUN/Creatinine Ratio Glucose Hemoglobin A1c 5.9 Calcium Total Bilirubin AST ALT Alkaline Phosphatase Total Creatine Kinase CK-MB (CK-2) CK-MB (CK-2) Rel Index Troponin I Total Protein Albumin Globulin Albumin/Globulin Ratio Triglycerides 57 Cholesterol 113 L LDL Cholesterol, Calc 59 HDL Cholesterol 43 Assessment & Plan Assessment & Plan narrative: # chest pain in a high-risk individual -chest pain is atypical, however patient has history of 5 coronary stents. His property consultant is Dr. Stephens. -EKG without ST changes -troponin negative x3 -NPO for nuclear medicine stress test -echo ordered -patient on Eliquis so will withhold aspirin, continue statin # acute bradycardia -in the ED apparently had heart rate of 22 although this is undocumented -hold home metoprolol -telemetry -atropine as needed if heart rate consistently less than 40 and patient symptomatic # HTN, chronic -continue home lisinopril # paroxysmal A-fib -holding home metoprolol due to bradycardia -continue home eliquis # constipation, chronic -continue home linzess # HLD, chronic -continue home crestor # neuropathy, chronic -continue home gabapentin Code status is full code. COVID negative. DVT prophylaxis with Eliquis. Proxy is shai Hassan. I have reviewed home meds and used all available resources to reconcile the home meds. Time Spent With Patient Critical Care time: I spent a total of [] minutes of critical care time on this patient's care today; this time is exclusive of procedural time. Quality VTE Deep Vein Thrombosis/Pulmonary Embolism Present on Admission: No
[2022-03-30] MEDS: APIXABAN 5 MG TABLET PO (20:53)
[2022-03-30] MEDS: GABAPENTIN 300 MG CAPSULE 1200 MG PO (20:54)
[2022-03-31] VITALS: BP 166/74; PULSE 76; RESP 18; TEMP 36.6; O2SAT 95
[2022-03-31 05:00] VITALS: BP 108/46; PULSE 79; RESP 18; TEMP 36.6; O2SAT 97
[2022-03-31 05:56] LABS: Add Manual Diff / Slide Review NO; Basophils Absolute Auto 0 /uL (0-100); Basophils Percent Auto 0.6 % (0-2); Eosinophils Absolute Auto 200 /uL (0-450); Eosinophils Percent Auto 3.2 % (2-4); Hematocrit 38.9 % (41-53); Hemoglobin 13.1 g/dL (13.5-17.5); Lymphocytes Absolute Auto 900 /uL (1100-4500); Lymphocytes Percent Auto 19.2 % (25-40); Mean Corpuscular HGB Conc 33.7 % (30-36); Mean Corpuscular Hemoglobin 32.6 PG (26-34); Mean Corpuscular Volume 96.7 fL (80-100); Monocytes Absolute Auto 600 /uL (0-900); Monocytes Percent Auto 11.7 % (3-14); Neutrophils Absolute Auto 3100 /uL (1500-7000); Neutrophils Percent Auto 65.3 % (50-75); Platelet Count 133 X10^3/uL (150-400); Red Blood Cell Count 4.03 X10^6/uL (4.5-5.9); Red Cell Distribution Width 13.2 % (11.6-14.8); White Blood Cell Count 4.8 X10^3/uL (4.5-11.0)
[2022-03-31 06:00] LABS: BUN Creatinine Ratio 26.4 (6-22); Blood Urea Nitrogen 24 mg/dL (9-20); Calcium 8.3 mg/dL (8.4-10.2); Carbon Dioxide 25 mmol/L (22-32); Chloride 109 mmol/L (98-107); Estimated Glomerular Filt Rate > 60 mL/min (>60); Glucose 108 mg/dL (80-110); HEMOLYSIS < 15 (0-50); Potassium 4.6 mmol/L (3.4-5.1); Sodium 138 mmol/L (137-145)
[2022-03-31 06:15] LABS: NT-proBNP (BNP-Adult 18+) 540 pg/mL (<450)
[2022-03-31 07:40] VITALS: BP 133/61; PULSE 65; RESP 18; TEMP 36.1; O2SAT 96
[2022-03-31] MEDS: APIXABAN 5 MG TABLET PO (08:16)
[2022-03-31] MEDS: GABAPENTIN 300 MG CAPSULE 600 MG PO (08:16)
[2022-03-31 11:05] VITALS: BP 123/61; PULSE 62; RESP 18; TEMP 36.2; O2SAT 97
--- NOTE | 2022-03-31 11:18 | P.DS_ITS ---
History of Present Illness History of Present Illness Date Patient Seen: 03/31/22 Time Patient Seen: 17:00 Chief complaint: Chest pain Narrative: Kenneth Ward Jr. is an 86yo male with PMH of CAD s/p 5 stents, atrial fibrillation on Eliquis, hypertension, hyperlipidemia, obesity, BPH than previous prostate cancer who presents with chest pain. Patient describes it more as a ?chest discomfort? which was across his chest which she thought was heartburn but it did not respond to Tums. The pain came on suddenly and was not changed with exertion or at rest. He states the pain was constant and resolved after several hours in the ED. Patient states he has done nuclear stress tests in the past and thinks he can walk on a treadmill if needed, although he does have LE neuropathy. He denies NV, abd pain, diarrhea or LE edema. In the ED patient stayed overnight while attempting to transfer for stress test at other facility. During that time he apparently developed bradycardia to 22 and pacer pads were placed. He denied symptoms. Discharge Providers Provider Date of admission: 03/30/22 14:48 Discharge Date: 03/31/22 Primary care physician: Osbaldo Cuevas MD Discharge provider: Fletcher Miles DO Summary Hospital Course Discharge Diagnosis: chest pain in a high-risk individual -chest pain is atypical, however patient has history of 5 coronary stents.? His observer electrical prospecting is Dr. Stephens. -EKG without ST changes -troponin negative x3 -nuclear medicine stress test came back showed old infarct but nothing new -echo unchanged from previous -patient on Eliquis so will withhold aspirin, continue statin # acute bradycardia -in the ED apparently had heart rate of 22 although this is undocumented -hold home metoprolol -telemetry -atropine as needed if heart rate consistently less than 40 and patient symptomatic -stopped metoprolol on discharge # HTN, chronic -continue home lisinopril # paroxysmal A-fib -holding home metoprolol due to bradycardia -continue home eliquis # constipation, chronic -continue home linzess # HLD, chronic -continue home crestor # neuropathy, chronic -continue home gabapentin Hospital Course: Admitted for chest pain rule out and bradycardia. Apparently in ED had a rate of 22 but this was not charted in the EHR. Home metoprolol stopped with improvement in HR to 50-60's. Patient had unchanged echo and underwent lexiscan stress test which showed old infarct but no new ischemia. Was discharged home and his home metoprolol was stopped. All other home cardiac medications were continued. Exam Vital Signs (past 8 hours): Oxygen Delivery Method Room Air Oxygen Flow Rate 0 Narrative Exam Narrative: GEN: no acute distress, obese HEENT: moist mucous membranes, PERRL NECK: trachea midline, no JVD CV: regular rate and rhythm, no murmurs PULM: clear bilaterally ABD: soft, nontender, nondistended, no organomegaly EXT: warm and well perfused with no edema, poor sensation in distal LE's NEURO: awake, alert, oriented, no focal deficits Objective Labs Result Diagrams: 03/31/22 05:40 03/31/22 05:40 [facility] Medical History Acute GI bleeding Balance problems (02/08/16) Chickenpox Coronary artery disease (2008) Coronary artery disease involving [place] coronary artery of [place] heart without angina pectoris (02/08/16) Essential hypertension (02/08/16) Gastroesophageal reflux disease (06/13/16) Headache Hearing loss (2014) History of malignant neoplasm of prostate (04/08/15) Hx of myocardial infarction (Unknown) Hypertension (Unknown) Left foot drop (03/06/17) Lumbar disc disease (2012) Measles Peripheral polyneuropathy (03/06/17) Polio (1950) Prostate cancer (2008) Pure hypercholesterolemia (02/08/16) Spinal stenosis of lumbar region (02/08/16) Statin intolerance (02/08/16) Vitamin D deficiency (11/21/16) Surgical History History of prostate surgery (2009) Hx of heart surgery (2008) Hx of hernia repair (Unknown) Status post laminectomy Family History Father No problems noted. Mother Cancer Grandfather No problems noted. Grandmother No problems noted. Grandfather No problems noted. Grandmother Cancer Family/Other Stroke Heart attack Coronary artery disease Congestive heart failure Social History marital status: household members: none Smoking Status: Former smoker second hand exposure: No alcohol intake: current substance use type: does not use Discharge Plan Discharge Plan Patient Disposition: Home Provider Discharge Comment: Your stress test and echocardiogram were unchanged from previous with no new or concerning findings. So the chest discomfort you experienced was not your heart. I have stopped your metoprolol as it was slowing down your heart rate too much. This should correct the low heart rate readings we were seeing. Discharge orders & Medications Prescriptions: Continued lisinopril 20 mg tablet 20 mg PO QPM alpha lipoic acid 600 mg capsule 600 mg PO BEDTIME tamsulosin [Flomax] 0.4 MG capsule,extended release 24hr 0.8 mg PO QPM Qty: 0 CoQ-10 400 mg PO QPM Qty: 0 ascorbic acid (vitamin C) 500 MG tablet 500 mg PO DAILY Qty: 0 [VITAMIN K2] 100 mcg PO QPM Qty: 0 Label Comments: vitamin K2 MK7 c MenaQ7 Vesicare 10 mg tablet 10 mg PO DAILY Qty: 30 0RF nitroglycerin 0.4 mg tablet, sublingual 0.4 mg SL Q5-15M PRN (Reason: Chest Pain) Qty: 20 11RF Eliquis 5 mg tablet 5 mg PO BID amlodipine 10 mg tablet 5 mg PO DAILY Label Comments: takes 5 mg in the evening Rx Instructions: Report pressures to PCP Linzess 145 mcg capsule 145 mcg PO DAILY Vitamin D3 1,500 unit 1,500 units PO DAILY rosuvastatin [Crestor] 5 mg tablet 5 mg PO DAILY 30 Days Qty: 30 0RF (DME) ResMed AirSense Auto See Rx Instructions .Route .MEDSUPPLY Rx Instructions: CPAP Min: 6 Max: 16 DME: ROTECH ABAD: 02/09/21 Discontinued metoprolol succinate 25 mg tablet extended release 24 hr 25 mg PO DAILY No Action gabapentin 300 mg capsule 600 mg PO BID Qty: 360 2RF Follow up/Referrals: Osbaldo Cuevas MD [Primary Care Provider] - Discharge Data Primary Care Provider: Osbaldo Cuevas Attending Provider: Fletcher Miles VTE Deep Vein Thrombosis/Pulmonary Embolism Present on Admission: No
[2022-03-31 15:23] VITALS: BP 123/57; PULSE 68; RESP 19; TEMP 36.9; O2SAT 98
--- NOTE | 2022-03-31 16:10 | CM.IDA ---
Initial DCP Assessment Note Pt is a 86 yo male, resident of [place], presents with chest pain and admitted obs for cardiac w/u PCP: Osbaldo Tyson: JEROMY/Julianna [facility] Reviewed chart, pt discussed in multidisciplinary rounds this morning. Patient expected to return home this afternoon after stress test, echo already completed and shows no acute changes from echo completed 2020 No DC needs identified, home w/supportive family, son and DIL -Tommy, both very involved in patient's care once home. Plan: DC home w/family anticipated, close outpatient follow up EFRAIN Santos
[2022-03-31 17:47] VITALS: BP 123/57; PULSE 68
[2022-03-31] MEDS: AMLODIPINE 5 MG TABLET PO (17:47)
[2022-03-31] MEDS: lisinopriL 20 MG TABLET PO (17:47)
--- NOTE | 2022-03-31 17:47 | DI.NM.S_ITS ---
DATE OF SERVICE: PROCEDURE: Pharmacological perfusion study. INDICATION: Chest pain with known history of CAD, status post multiple PCI, previous base-to-mid inferolateral infarction, chronic atrial fibrillation. RADIOPHARMACEUTICAL: 26.9 mCi technetium-99m Myoview IV was injected at stress and 11.3 mCi technetium-99m Myoview IV was injected at rest. CARDIAC STRESS: The patient underwent IV Lexiscan perfusion study under the supervision of an attending staff. The patient remained hemodynamically stable. Baseline blood pressure of 136/84. Baseline rhythm was atrial fibrillation with controlled ventricular rate with some nonspecific ST-T changes. During stress, there were no new convincing ischemic changes. The patient remained in atrial fibrillation. No significant symptoms. RAW DATA: There is increased subdiaphragmatic activity. Gated studies stress left ventricular ejection fraction 66 percent, and I do not see any significant wall motion abnormalities other than base-to-mid inferior wall hypokinesis. Next, resting end-diastolic volume 134 mL. TID ratio 0.86, which is within normal limits. Lung/heart ratio 0.74, which is abnormal, suggestive of elevated left ventricular filling pressure. MYOCARDIAL PERFUSION SCAN: Stress supine, resting supine images were compared to each other. There are no prone images. There appears to be predominantly fixed moderate size, moderate to severely decreased perfusion of base-to-mid inferior lateral wall consistent with old infarction as well as fixed apical septum defect consistent with prior infarction without any significant ischemia. CONCLUSION: 1. This is an abnormal myocardial perfusion study consistent with moderate size infarction of base to mid inferolateral wall as well as apical septum. Overall preserved left ventricular function. 2. Baseline atrial fibrillation with controlled ventricular rate. No angina during the study. In comparison to study of January 17, 2021, no significant change. Kenneth Ward Jr - NEAL/syeda/DARIUS doc#: [id number]/job#: [id number] dd: 03/31/2022 16:48:00 dt: 03/31/2022 17:35:00 DICTATING MD/COPIES TO: Regina Valenzuela MD COPIES MNE: DORA;
[2022-03-31] MEDS: TAMSULOSIN 0.4 MG CAPSULE 0.8 MG PO (18:23)
--- NOTE | 2022-03-31 18:54 | PC.NURSE ---
Pt is A&OX3, Afebrile on RA. He is Afib on telemetry rate controlled. He denies any palpitations, SOB or CP. He completes echo and stress test today. This evening he is cleared for discharge after stess test results reported. He verbalizes understanding of medication changes with son who is his POA. He is escorted to private vehicle with son via w/ch with all of his belongings at 1805.
== END 2022-03-31 18:15 | disposition home or self-care (01) ==
LOC: ED 03-30 14:42 → AC 03-30 14:49
PROVIDERS: Emergency Medicine; Admitting Provider Student in an Organized Health Care Education/Training Program; Emergency Provider Emergency Medicine; Family Provider Student in an Organized Health Care Education/Training Program; PCP Student in an Organized Health Care Education/Training Program; Referring Provider Emergency Medicine; Visit Provider Student in an Organized Health Care Education/Training Program
DX: R07.9 Chest pain, unspecified (principal); I25.10 Atherosclerotic heart disease of native coronary artery without angina pectoris; Z95.818 Presence of other cardiac implants and grafts; I48.91 Unspecified atrial fibrillation; I10 Essential (primary) hypertension; E78.5 Hyperlipidemia, unspecified; N40.0 Benign prostatic hyperplasia without lower urinary tract symptoms; E66.9 Obesity, unspecified; Z20.822 Contact with and (suspected) exposure to COVID-19
CPT/HCPCS: 36415; 71045; 78452; 80048; 80053; 80061; 82550; 83036; 83690; 83735; 83880; 84484; 85025; 85610; 87635; 93005; 93017; 93306; 99284; C9803; G0378; A9502; J2785

== ENCOUNTER → 2022-06-28 08:01 | Outpatient (CLI) | payer MEDICARE, OTHER, SELFPAY ==
[2022-03-30 15:42] VITALS: BMI 30.9
[2022-06-28 10:15] LABS: Add Manual Diff / Slide Review NO; Basophils Absolute Auto 0 /uL (0-100); Basophils Percent Auto 0.5 % (0-2); Eosinophils Absolute Auto 200 /uL (0-450); Eosinophils Percent Auto 3.3 % (2-4); Hematocrit 37.4 % (41-53); Hemoglobin 12.4 g/dL (13.5-17.5); Lymphocytes Absolute Auto 800 /uL (1100-4500); Lymphocytes Percent Auto 14.3 % (25-40); Mean Corpuscular HGB Conc 33.1 % (30-36); Mean Corpuscular Hemoglobin 32.1 PG (26-34); Mean Corpuscular Volume 97.1 fL (80-100); Monocytes Absolute Auto 500 /uL (0-900); Monocytes Percent Auto 9.1 % (3-14); Neutrophils Absolute Auto 3800 /uL (1500-7000); Neutrophils Percent Auto 72.8 % (50-75); Platelet Count 198 X10^3/uL (150-400); Red Blood Cell Count 3.85 X10^6/uL (4.5-5.9); Red Cell Distribution Width 13.4 % (11.6-14.8); White Blood Cell Count 5.2 X10^3/uL (4.5-11.0)
[2022-06-28 10:41] LABS: Alanine Aminotransferase 22 IU/L (<50); Albumin 3.4 g/dL (3.5-5.0); Albumin Globulin Ratio 1.1 (1.0-2.8); Alkaline Phosphatase 58 U/L (38-126); Aspartate Aminotransferase 19 IU/L (17-59); BUN Creatinine Ratio 23.9 (6-22); Bilirubin Total 0.2 mg/dL (0.2-1.3); Blood Urea Nitrogen 21 mg/dL (9-20); Calcium 8.4 mg/dL (8.4-10.2); Carbon Dioxide 21 mmol/L (22-32); Chloride 108 mmol/L (98-107); Estimated Glomerular Filt Rate > 60 mL/min (>60); Globulin 3.1 g/dL (1.7-4.1); Glucose 106 mg/dL (80-110); HEMOLYSIS < 15 (0-50); Potassium 4.8 mmol/L (3.4-5.1); Sodium 138 mmol/L (137-145); Total Protein 6.5 g/dL (6.3-8.2)
[2022-06-28 10:58] LABS: Vitamin D 25 Hydroxy (D3) 41.1 ng/mL (30.0-100.0)
[2022-06-28 11:08] LABS: Free T3, Triiodothyronine Free 3.79 pg/mL (2.77-5.27); Free T4, Direct Thyroxine 1.32 ng/dL (0.78-2.19)
[2022-06-28 11:21] LABS: Thyroid Stimulating Hormone 1.44 uIU/mL (0.47-4.68)
[2022-06-28 11:23] LABS: Creatinine Urine Random 74.7 mg/dL; Microalbumi Creatinin Ratio Ur 26.7 ug/mg CR (<30)
[2022-06-29 17:47] LABS: Hep C Virus Ab w/Reflex Quant NEGATIVE s/c (NEGATIVE)
== END ==
PROVIDERS: Family Provider Student in an Organized Health Care Education/Training Program; PCP Nurse Practitioner; Referring Provider Nurse Practitioner; Visit Provider Nurse Practitioner
DX: D50.9 Iron deficiency anemia, unspecified (principal); I10 Essential (primary) hypertension; E55.9 Vitamin D deficiency, unspecified; Z11.59 Encounter for screening for other viral diseases; I48.91 Unspecified atrial fibrillation
CPT/HCPCS: 36415; 80053; 82043; 82306; 82570; 84439; 84443; 84481; 85025; 86803

== ENCOUNTER 2022-07-23 12:11 | Emergency (ER) | payer MEDICARE, OTHER, SELFPAY ==
[2022-03-30 15:42] VITALS: BMI 30.9
[2022-07-23] VITALS (11 sets, daily range): BP systolic 95–146; BP diastolic 51–67; PULSE 69–84; RESP 16–27; TEMP 35.9; O2SAT 91–97; BMI 30.7
[2022-07-23] MEDS: LOPERAMIDE 2 MG CAPSULE PO (13:21)
--- NOTE | 2022-07-23 13:23 | PC.NURSE ---
pt and pt family member requesting imodium for diarrhea, ongoing x 2 days, did not take this AM, pt forgot. verbal read back from Dr. cramer for 2mg PO imodium, given, see emar. pt oriented to call light, resting comfortably in bed.
[2022-07-23 13:27] LABS: Influenza A - CEPHEID Flu A POSITIVE (NEGATIVE); Influenza B - CEPHEID Flu B NEGATIVE (NEGATIVE); Respiratory Syncytial Virus Negative (Negative)
[2022-07-23 13:31] LABS: COVID-19 CEPHEID 4-PLEX PCR Negative (Negative)
--- NOTE | 2022-07-23 14:22 | DI.RAD.S_ITS ---
PROCEDURE: XR CHEST 2V INDICATIONS: crackles bilateral bases TECHNIQUE: 2 views of the chest were acquired. COMPARISON: [facility], CR, XR CHEST 1V, 01/26/2021, 5:09. [facility], CR, XR CHEST 1V, 03/16/2021, 14:06. [facility], CR, XR CHEST 1V, 03/29/2022, 11:55. FINDINGS: Surgical changes and devices: None. Lungs and pleura: Mild interstitial prominence can be seen. No focal infiltrates are seen. No pleural effusions or pneumothorax. The lungs are hyperexpanded, with flattening of the hemidiaphragms seen. Mediastinum: The cardiac contours are moderately enlarged. The aorta demonstrates calcification and tortuosity. Bones and chest wall: No suspicious bony abnormalities. Age-appropriate bony degenerative changes are seen. Accentuated thoracic kyphosis is seen. Soft tissues appear unremarkable. IMPRESSION: Moderate cardiomegaly with mild interstitial prominence. Please consider pulmonary edema. The lungs are hyperexpanded. Dictated by: Liam Ulloa M.D. on 07/23/2022 at 14:29 Approved by: Liam Ulloa M.D. on 07/23/2022 at 14:30
--- NOTE | 2022-07-23 14:22 | ED.URI ---
HPI - URI/Sore Throat <Dorcas Ibarra, [facility] - Last Filed: 07/23/22 18:15> General Chief Complaint: Upper Respiratory Symptoms Stated Complaint: Flu Like Symptoms, HX CHF Time Seen by Provider: 07/23/22 14:14 Source: patient and family Mode of arrival: Wheelchair History of Present Illness HPI Narrative: This is an 86-year-old gentleman who presents to the emergency department with his son for 2 days of worsening shortness of breath, congestion, feeling tired and weak more than usual. Patient has a history of coronary artery disease, atrial fibrillation and is anticoagulated on Eliquis, SEAN, wears BiPAP at night, COPD, GERD, dysphagia and denies nausea and vomiting but endorses diarrhea for the last 2 days. He has been taking his other medications as prescribed, denies any chest pain, wheezing, difficulty breathing and denies any pain. States that he feels tired, denies any urinary urgency, frequency or retention. Related Data Home Medications Medication Instructions Recorded Confirmed CoQ-10 400 mg PO QPM ##0 11/21/16 06/28/22 ascorbic acid (vitamin C) 500 mg 500 mg PO DAILY ##0 11/21/16 06/28/22 tablet tamsulosin 0.4 mg capsule (Flomax) 0.8 mg PO QPM ##0 11/21/16 06/28/22 [VITAMIN K2] 100 mcg PO QPM ##0 03/06/17 06/28/22 alpha lipoic acid 600 mg capsule 600 mg PO BEDTIME 12/11/18 06/28/22 lisinopril 20 mg tablet 20 mg PO QPM 12/11/18 06/28/22 apixaban 5 mg tablet (Eliquis) 5 mg PO BID 10/26/20 06/28/22 amlodipine 10 mg tablet 5 mg PO DAILY 02/20/22 06/28/22 linaclotide 145 mcg capsule 145 mcg PO DAILY 02/20/22 06/28/22 (Linzess) ResMed AirSense Auto 03/27/22 06/28/22 Vitamin D3 See Rx Instructions PO DAILY 06/13/22 06/28/22 Previous Rx's Medication Instructions Recorded rosuvastatin 5 mg tablet (Crestor) 5 mg PO DAILY 30 days #30 tabs 09/04/20 solifenacin 10 mg tablet (Vesicare) 10 mg PO DAILY #30 tabs 04/26/21 nitroglycerin 0.4 mg sublingual 0.4 mg sublingual Q5-15M PRN Chest 08/15/21 tablet Pain #20 tabs gabapentin 300 mg capsule 600 mg PO BID #360 caps 04/03/22 benzonatate 200 mg capsule 200 mg PO TID #20 caps 07/23/22 fluticasone propionate 50 1 spray intranasal BID PRN nasal 07/23/22 mcg/actuation nasal congestion #16 grams spray,suspension guaifenesin 400 mg tablet 400 mg PO QID productive cough #30 07/23/22 tabs prednisone 50 mg tablet 50 mg PO DAILY #5 tabs 07/23/22 Allergies Allergy/AdvReac Type Severity Reaction Status Date / Time No Known Drug Allergies Allergy Verified 06/28/22 08:44 Review of Systems <YOANDY Vital - Last Filed: 07/23/22 18:15> Review of Systems Narrative: Review of systems is negative for acute abnormalities unless otherwise noted in HPI Patient History <YOANDY Vital - Last Filed: 07/23/22 18:15> Medical History Acute GI bleeding Anemia Balance problems (02/08/16) Chickenpox Chronic anticoagulation Coronary artery disease (2008) Coronary artery disease involving [place] coronary artery of [place] heart without angina pectoris (02/08/16) Essential hypertension (02/08/16) Gastroesophageal reflux disease (06/13/16) Headache Hearing loss (2014) History of malignant neoplasm of prostate (04/08/15) Hx of myocardial infarction (Unknown) Hypertension (Unknown) Left foot drop (03/06/17) Lumbar disc disease (2012) Measles Peripheral polyneuropathy (03/06/17) Polio (1950) Prostate cancer (2008) Protein-calorie malnutrition, mild Pure hypercholesterolemia (02/08/16) Spinal stenosis of lumbar region (02/08/16) Statin intolerance (02/08/16) Vitamin D deficiency (11/21/16) Surgical History History of prostate surgery (2009) Hx of heart surgery (2009) Hx of hernia repair (Unknown) Status post laminectomy Family History Father No problems noted. Mother Cancer Grandfather No problems noted. Grandmother No problems noted. Grandfather No problems noted. Grandmother Cancer Family/Other Stroke Heart attack Coronary artery disease Congestive heart failure Social History marital status: household members: none Smoking Status: Former smoker second hand exposure: No alcohol intake: current substance use type: does not use Smoking Status: Former smoker alcohol intake frequency: a few times a week Substance Use Type: does not use Exam <YOANDY Vital - Last Filed: 07/23/22 18:15> Narrative Exam Narrative: Reviewed vitals signs and nursing notes. General: cooperative, comfortable, in no acute distress, well groomed HEENT: symmetrical facial expressions, moist mucous membranes Cardiovascular: regular rate and rhythm, no peripheral edema, warm extremities Respiratory: Mildly increased respiratory effort, tachypneic, without hypoxia, crackles auscultated to bilateral lower bases, decreased breath sounds on the right lower lobe when compared with the left able to speak in complete sentences, without wheezing, stridor, or retractions. GI: abdomen soft, nontender to palpation, nondistended, without masses, rebound tenderness or exquisite tenderness with exam. MSK: moves all extremities, neurovascularly intact, no weakness, normal tone Skin: brisk capillary refill, without pallor or erythema Neuro: normal speech and cognition, A&O x3, ambulatory, clear speech Psych: mental status is grossly normal, congruent mood, normal affect, pleasant and cooperative Initial Vital Signs Initial Vital Signs: Vital Signs Temperature 96.7 F L 07/23/22 12:31 Pulse Rate 69 07/23/22 12:31 Respiratory Rate 18 07/23/22 12:31 Blood Pressure 95/51 L 07/23/22 12:31 Pulse Oximetry 97 07/23/22 12:31 Oxygen Delivery Method 07/23/22 12:31 <Zackery Arshad MD - Last Filed: 07/28/22 07:42> Initial Vital Signs Initial Vital Signs: Vital Signs Temperature 96.7 F L 07/23/22 12:31 Pulse Rate 69 07/23/22 12:31 Respiratory Rate 18 07/23/22 12:31 Blood Pressure 95/51 L 07/23/22 12:31 Pulse Oximetry 97 07/23/22 12:31 Oxygen Delivery Method 07/23/22 12:31 Course <YOANDY Vital - Last Filed: 07/23/22 18:15> Orders Ordered: Discontinued Medications Albuterol/Ipratropium (Albuterol/Ipratropium 3 Ml Ampul) 3 ml INH NOW ONE Stop: 07/23/22 14:23 Last Admin: 07/23/22 14:28 Dose: 3 ml Documented By: BRYAN Guaifenesin (Guaifenesin Er 600 Mg Tab) 600 mg PO NOW ONE Stop: 07/23/22 14:23 Last Admin: 07/23/22 14:35 Dose: 600 mg Documented By: DALIA Loperamide HCl (Loperamide 2 Mg Capsule) 2 mg PO NOW ONE Stop: 07/23/22 13:18 Last Admin: 07/23/22 13:21 Dose: 2 mg Documented By: LYDIA Oseltamivir Phosphate (Oseltamivir 75 Mg Capsule) 75 mg PO NOW ONE Stop: 07/23/22 14:23 Last Admin: 07/23/22 14:35 Dose: 75 mg Documented By: DALIA Prednisone (Prednisone 20 Mg Tablet) 60 mg PO NOW ONE Stop: 07/23/22 14:23 Last Admin: 07/23/22 14:34 Dose: 60 mg Documented By: DALIA Vital Signs Vital signs: Vital Signs - 8 hr 07/23/22 12:31 07/23/22 12:47 07/23/22 12:47 Temperature 96.7 F L Pulse Rate 69 78 Respiratory Rate 18 Blood Pressure 95/51 L 114/56 L Pulse Oximetry 97 96 Oxygen Delivery Method Room Air 07/23/22 14:38 07/23/22 13:00 07/23/22 13:00 Temperature Pulse Rate 80 79 Respiratory Rate 16 23 Blood Pressure 113/58 L Pulse Oximetry 96 95 Oxygen Delivery Method Room Air 07/23/22 13:30 07/23/22 13:30 07/23/22 14:00 Temperature Pulse Rate 77 Respiratory Rate 18 Blood Pressure 115/56 L 136/66 Pulse Oximetry 95 Oxygen Delivery Method 07/23/22 14:00 07/23/22 14:30 07/23/22 14:31 Temperature Pulse Rate 79 73 70 Respiratory Rate 26 H 27 H 18 Blood Pressure Pulse Oximetry 91 96 97 Oxygen Delivery Method 07/23/22 14:31 07/23/22 15:00 07/23/22 15:01 Temperature Pulse Rate 76 76 Respiratory Rate 25 H 21 Blood Pressure 114/56 L Pulse Oximetry 95 95 Oxygen Delivery Method 07/23/22 15:01 07/23/22 15:46 Temperature Pulse Rate 84 Respiratory Rate 24 Blood Pressure 146/67 H 146/67 H Pulse Oximetry 96 Oxygen Delivery Method Room Air <Zackery Arshad MD - Last Filed: 07/28/22 07:42> Orders Ordered: Discontinued Medications Albuterol/Ipratropium (Albuterol/Ipratropium 3 Ml Ampul) 3 ml INH NOW ONE Stop: 07/23/22 14:23 Last Admin: 07/23/22 14:28 Dose: 3 ml Documented By: BRYAN Guaifenesin (Guaifenesin Er 600 Mg Tab) 600 mg PO NOW ONE Stop: 07/23/22 14:23 Last Admin: 07/23/22 14:35 Dose: 600 mg Documented By: DALIA Loperamide HCl (Loperamide 2 Mg Capsule) 2 mg PO NOW ONE Stop: 07/23/22 13:18 Last Admin: 07/23/22 13:21 Dose: 2 mg Documented By: LYDIA Oseltamivir Phosphate (Oseltamivir 75 Mg Capsule) 75 mg PO NOW ONE Stop: 07/23/22 14:23 Last Admin: 07/23/22 14:35 Dose: 75 mg Documented By: DALIA Prednisone (Prednisone 20 Mg Tablet) 60 mg PO NOW ONE Stop: 07/23/22 14:23 Last Admin: 07/23/22 14:34 Dose: 60 mg Documented By: DALIA Vital Signs Vital signs: Vital Signs - 8 hr 07/23/22 12:31 07/23/22 12:47 07/23/22 12:47 Temperature 96.7 F L Pulse Rate 69 78 Respiratory Rate 18 Blood Pressure 95/51 L 114/56 L Pulse Oximetry 97 96 Oxygen Delivery Method Room Air 07/23/22 14:38 07/23/22 13:00 07/23/22 13:00 Temperature Pulse Rate 80 79 Respiratory Rate 16 23 Blood Pressure 113/58 L Pulse Oximetry 96 95 Oxygen Delivery Method Room Air 07/23/22 13:30 07/23/22 13:30 07/23/22 14:00 Temperature Pulse Rate 77 Respiratory Rate 18 Blood Pressure 115/56 L 136/66 Pulse Oximetry 95 Oxygen Delivery Method 07/23/22 14:00 07/23/22 14:30 07/23/22 14:31 Temperature Pulse Rate 79 73 70 Respiratory Rate 26 H 27 H 18 Blood Pressure Pulse Oximetry 91 96 97 Oxygen Delivery Method 07/23/22 14:31 07/23/22 15:00 07/23/22 15:01 Temperature Pulse Rate 76 76 Respiratory Rate 25 H 21 Blood Pressure 114/56 L Pulse Oximetry 95 95 Oxygen Delivery Method 07/23/22 15:01 07/23/22 15:46 Temperature Pulse Rate 84 Respiratory Rate 24 Blood Pressure 146/67 H 146/67 H Pulse Oximetry 96 Oxygen Delivery Method Room Air MDM - URI/Sore Throat <Dorcas Lawrencew, [facility] - Last Filed: 07/23/22 18:15> Lab Data Labs: Lab Results 07/23/22 Range/Units 12:41 SARS-CoV-2 (PCR) Negative (Negative) Influenza A (RT-PCR) Flu a positive H (NEGATIVE) Influenza B (RT-PCR) Flu b negative (NEGATIVE) RSV (PCR) Negative (Negative) Imaging Data Chest x-ray: Radiologist's Impression: PROCEDURE:? XR CHEST 2V ? INDICATIONS:? crackles bilateral bases ? TECHNIQUE:? 2 views of the chest were acquired.? ? COMPARISON:? [facility], CR, XR CHEST 1V, 01/26/2021, 5:09.? [facility], CR, XR CHEST 1V, 03/16/2021, 14:06.? [facility], CR, XR CHEST 1V, 03/29/2022, 11:55. ? FINDINGS:? ? Surgical changes and devices:? None.? ? Lungs and pleura:? Mild interstitial prominence can be seen.? No focal infiltrates are seen. ? No pleural effusions or pneumothorax.? The lungs are hyperexpanded, with flattening of the hemidiaphragms seen. ? Mediastinum:? The cardiac contours are moderately enlarged. The aorta demonstrates calcification and tortuosity. ? Bones and chest wall:? No suspicious bony abnormalities.? Age-appropriate bony degenerative changes are seen.? Accentuated thoracic kyphosis is seen.? ? Soft tissues appear unremarkable.? ? ? IMPRESSION:? ? Moderate cardiomegaly with mild interstitial prominence.? Please consider pulmonary edema. ? The lungs are hyperexpanded.? ? Dictated by: Liam Ulloa M.D. on 07/23/2022 at 14:29 ? ? Approved by: Liam Ulloa M.D. on 07/23/2022 at 14:30 ? [facility] Narrative Medical decision making narrative: This is an 86-year-old gentleman with history of COPD, wears BiPAP at night, atrial fibrillation and is anticoagulated on apixaban who presents to the emergency department after 3 days of upper respiratory symptoms and tested positive for influenza A. Chest x-ray shows moderate cardiomegaly with mild interstitial prominence, patient has history of CHF but does not have lower extremity edema,, worsening cough, swelling, and does not have visible pleural effusions on chest x-ray. Patient was treated with Tamiflu, a DuoNeb, he felt much better after this, was given prednisone 60 mg for history of COPD with comorbidities. Recommend that he follow-up with his primary care provider, was given strict return precautions. Multiple causes of his symptoms considered including RI, PE, pneumothorax, pneumonia, aortic dissection, and pleurisy. Patient reports no radiation, no diaphoresis, no provocation with exertion, and no vomiting Other possible diagnosis' considered include; viral URI, influenza, CHF exacerbation pneumonia, pharyngitis, acute bronchitis, allergic rhinitis, pertussis, sinusitis, appendicitis, dehydration, pulmonary embolism,. Rest, drink plenty of fluids, NSAIDS for muscle aches and pains. Return to ED for worsening symptoms such as SOB, chest pain, inability to take adequate oral fluids, fever, or productive cough. Patient is appropriate and amenable to discharge home. Vital signs are stable on repeat examination is unremarkable. Patient has been informed of results. Patient has been given strict return to ER precautions for any new or worsening symptoms. Patient understands to follow up closely with outpatient providers as instructed. Patient understands plan and agrees to discharge home. All questions and concerns answered at this time. <Zackery Arshad MD - Last Filed: 07/28/22 07:42> Lab Data Labs: Lab Results 07/23/22 Range/Units 12:41 SARS-CoV-2 (PCR) Negative (Negative) Influenza A (RT-PCR) Flu a positive H (NEGATIVE) Influenza B (RT-PCR) Flu b negative (NEGATIVE) RSV (PCR) Negative (Negative) Discharge Plan Departure Patient Disposition: Home Clinical Impression: Influenza A, History of COPD Instructions: Influenza, Diarrhea Activity Restrictions/Additional Instructions: *You have been diagnosed with influenza A. Since you had shortness of breath with diminished breath sounds in your symptoms improve after your nebulizer, please take the prednisone starting tomorrow each day until it is gone, take Tamiflu twice a day for the next 5 days to treat influenza, this may cause mild nausea, please take my medications with food and water. Take Tylenol as needed for fever, chills, or aches and pains. Take guaifenesin as needed for productive cough that is difficult to clear due to dysphagia/congestion. Please use Flonase morning and night for congestion and postnasal drip, and the benzonatate capsules can help with cough and should not affect her blood pressure. It was a pleasure to meet you, please have him come back in if he is getting worse. Staying hydrated is a hard job to do but if you are intentional about trying to hydrate every hour or every other hour you will drink more than you would have. I hope you feel better soon *What to do: *Please continue to take your regular medications as directed. [ x] New medication prescriptions sent to your pharmacy: [[facility]] [ ] New medication written as a paper prescription [ ] No new medications given *Please follow up with your primary care provider in 2-3 days, call for an appointment. Let them know you were seen in the Emergency Department and that we asked that you be seen for follow-up. We will electronically transmit a record of today's note if your PCP is in our system *If you do not have a primary care provider please contact [phone] to establish care with one of the [facility] primary care providers. *Return to Emergency Department if you should have any new, worsening, or concerning symptoms, such as [fever greater than 101F, chills, worsening pain, persistent vomiting or other bothersome symptoms]. Prescriptions: New prednisone 50 mg tablet 50 mg PO DAILY Qty: 5 0RF fluticasone propionate 50 mcg/actuation spray,suspension 1 spray intranasal BID PRN (Reason: nasal congestion) Qty: 16 0RF Rx Instructions: administer into each nostril guaifenesin 400 mg tablet 400 mg PO QID Qty: 30 0RF benzonatate 200 mg capsule 200 mg PO TID Qty: 20 0RF No Action lisinopril 20 mg tablet 20 mg PO QPM alpha lipoic acid 600 mg capsule 600 mg PO BEDTIME tamsulosin [Flomax] 0.4 MG capsule,extended release 24hr 0.8 mg PO QPM Qty: 0 CoQ-10 400 mg PO QPM Qty: 0 ascorbic acid (vitamin C) 500 MG tablet 500 mg PO DAILY Qty: 0 [VITAMIN K2] 100 mcg PO QPM Qty: 0 Label Comments: vitamin K2 MK7 c MenaQ7 Vesicare 10 mg tablet 10 mg PO DAILY Qty: 30 0RF nitroglycerin 0.4 mg tablet, sublingual 0.4 mg SL Q5-15M PRN (Reason: Chest Pain) Qty: 20 11RF gabapentin 300 mg capsule 600 mg PO BID Qty: 360 2RF Eliquis 5 mg tablet 5 mg PO BID Vitamin D3 1,500 unit See Rx Instructions PO DAILY Rx Instructions: 5000-1000IU daily orally daily; amlodipine 10 mg tablet 5 mg PO DAILY Label Comments: takes 5 mg in the evening Rx Instructions: Report pressures to PCP Linzess 145 mcg capsule 145 mcg PO DAILY rosuvastatin [Crestor] 5 mg tablet 5 mg PO DAILY 30 Days Qty: 30 0RF (DME) ResMed AirSense Auto See Rx Instructions .Route .MEDSUPPLY Rx Instructions: CPAP Min: 6 Max: 16 DME: [facility]: 02/09/21 Referrals: Marbella Duenas ARNP [Primary Care Provider] - Visit Report Forms: Patient Portal/API <Zackery Arshad MD - Last Filed: 07/28/22 07:42> Cosign ED Attending Cosallature Attestation: I was immediately available in the department for consultation. ?This documentation has been reviewed and I agree with assessment and plan. Supervised by Zackery Arshad MD
[2022-07-23] MEDS: ALBUTEROL/IPRATROPIUM 3 ML AMPUL INH (14:28)
[2022-07-23] MEDS: predniSONE 20 MG TABLET 60 MG PO (14:34)
[2022-07-23] MEDS: OSELTAMIVIR 75 MG CAPSULE PO (14:35)
[2022-07-23] MEDS: guaiFENesin ER 600 MG TAB PO (14:35)
== END 2022-07-23 15:48 | disposition home or self-care (01) ==
PROVIDERS: Emergency Medicine; Emergency Provider Nurse Practitioner Critical Care Medicine; Family Provider Student in an Organized Health Care Education/Training Program; PCP Nurse Practitioner
DX: J10.1 Influenza due to other identified influenza virus with other respiratory manifestations (principal); I48.91 Unspecified atrial fibrillation; Z79.01 Long term (current) use of anticoagulants; I25.10 Atherosclerotic heart disease of native coronary artery without angina pectoris; Z20.822 Contact with and (suspected) exposure to COVID-19; Z87.09 Personal history of other diseases of the respiratory system
CPT/HCPCS: 0241U; 71046; 94640; 99283

== ENCOUNTER 2022-09-20 11:08 | Emergency (ER) | payer MEDICARE, OTHER, SELFPAY ==
[2022-07-31 15:20] VITALS: BMI 30.9
[2022-09-20] VITALS (8 sets, daily range): BP systolic 141–156; BP diastolic 65–70; PULSE 56–89; RESP 15; TEMP 36.1; O2SAT 85–100; BMI 30.7
[2022-09-20 11:48] LABS: Bacteria Urine None Seen; Culture Indicated Urine Cult Not Indicated; RBC Urine 1-5/HPF (0-5/HPF); WBC Urine 0-1/HPF (0-5/HPF)
--- NOTE | 2022-09-20 11:49 | DI.CT.S_ITS ---
PROCEDURE: CT KIDNEY URETER BLADDER (KUB) INDICATIONS: left flank pain TECHNIQUE: Axial sections were acquired from the lung bases to the pubic symphysis. Coronal and sagittal reformats were performed. For radiation dose reduction, the following was used: automated exposure control, adjustment of mA and/or kV according to patient size. COMPARISON: [facility], CT, CT ABDOMEN PELVIS WO/W CON, 04/09/2019, 10:16. FINDINGS: Image quality: Degraded by arms at side position Lower chest: Basal scarring/atelectasis. Incidentally noted pericardial and coronary artery calcifications. Pleural thickening on the left. Biatrial enlargement. Solid organs: Calcified granulomas in the liver gallbladder is unremarkable. Pancreatic parenchymal atrophy, as before. No pancreatic ductal dilation or biliary ductal dilation. Splenic granulomas. No adrenal nodules. No right hydronephrosis. No radiopaque calculi on the right. No left hydronephrosis. No radiopaque calculi on the left. Mild fat stranding is seen around the left renal pelvis and left ureter, although this is not significantly changed compared to 2019 imaging. Vessels and lymph nodes: No abdominal aortic aneurysm. Moderate atherosclerotic disease. Bowel and peritoneum: No hiatal hernia. No small bowel obstruction. Above average fecal loading. Normal appendix. No pathologic ascites. Similar fat stranding around the inferior portion of the left pericolic gutter compared to 2019, possibly senescent Body wall: Some fatty atrophy of the left gluteal musculature. Pelvis: Prostate radiation beads. Mild bladder wall thickening, limited evaluation due to underdistention. Bones: Degenerative changes without acute or suspicious osseous finding. IMPRESSION: No acute abdominopelvic pathology. Please correlate with urinalysis to evaluate the possible fat stranding around the left renal pelvis and left ureter. Other stable/incidental findings are described above. Particular note is made of pericardial calcifications and coronary calcifications. Dictated by: Mak Lopez M.D. on 09/20/2022 at 12:02 Approved by: Mak Lopez M.D. on 09/20/2022 at 12:09
[2022-09-20 11:55] LABS: Add Manual Diff / Slide Review NO; Basophils Absolute Auto 0 /uL (0-100); Basophils Percent Auto 0.3 % (0-2); Eosinophils Absolute Auto 200 /uL (0-450); Eosinophils Percent Auto 3.8 % (2-4); Hematocrit 37.8 % (41-53); Hemoglobin 12.6 g/dL (13.5-17.5); Lymphocytes Absolute Auto 1000 /uL (1100-4500); Lymphocytes Percent Auto 21.9 % (25-40); Mean Corpuscular HGB Conc 33.5 % (30-36); Mean Corpuscular Hemoglobin 32.1 PG (26-34); Mean Corpuscular Volume 95.8 fL (80-100); Monocytes Absolute Auto 500 /uL (0-900); Monocytes Percent Auto 11.3 % (3-14); Neutrophils Absolute Auto 2900 /uL (1500-7000); Neutrophils Percent Auto 62.7 % (50-75); Platelet Count 128 X10^3/uL (150-400); Red Blood Cell Count 3.94 X10^6/uL (4.5-5.9); Red Cell Distribution Width 14.7 % (11.6-14.8); White Blood Cell Count 4.6 X10^3/uL (4.5-11.0)
[2022-09-20 12:00] LABS: Alanine Aminotransferase 27 IU/L (<50); Albumin 3.4 g/dL (3.5-5.0); Alkaline Phosphatase 52 U/L (38-126); Aspartate Aminotransferase 27 IU/L (17-59); BUN Creatinine Ratio 20.7 (6-22); Bilirubin Total 0.4 mg/dL (0.2-1.3); Blood Urea Nitrogen 18 mg/dL (9-20); Calcium 8.6 mg/dL (8.4-10.2); Carbon Dioxide 25 mmol/L (22-32); Chloride 107 mmol/L (98-107); Estimated Glomerular Filt Rate > 60 mL/min (>60); Globulin 3.3 g/dL (1.7-4.1); Glucose 107 mg/dL (80-110); HEMOLYSIS < 15 (0-50); Potassium 4.6 mmol/L (3.4-5.1); Sodium 139 mmol/L (137-145); Total Protein 6.7 g/dL (6.3-8.2)
[2022-09-20] MEDS: HYDROCODONE/ACET 5/325 TABLET 1 TAB PO (13:22)
[2022-09-20] MEDS: predniSONE 20 MG TABLET 40 MG PO (13:23)
[2022-09-20] MEDS: methocarbamoL 500 MG TABLET PO (13:23)
[2022-09-20] MEDS: LIDOCAINE PATCH 1 EACH ADH..PATCH TOP (13:23)
--- NOTE | 2022-09-20 13:26 | ED.MALEGU ---
HPI - Male Genitourinary <Dorcas Ibarra, [facility] - Last Filed: 09/20/22 16:59> General Chief complaint: Urogenital-Male Stated complaint: Left flank/back pain hx kidney stones Time Seen by Provider: 09/20/22 12:16 Source: patient Mode of arrival: EMS Related Data Home Medications Medication Instructions Recorded Confirmed CoQ-10 400 mg PO QPM ##0 11/21/16 08/02/22 ascorbic acid (vitamin C) 500 mg 500 mg PO DAILY ##0 11/21/16 08/02/22 tablet tamsulosin 0.4 mg capsule (Flomax) 0.8 mg PO QPM ##0 11/21/16 08/02/22 [VITAMIN K2] 100 mcg PO QPM ##0 03/06/17 08/02/22 alpha lipoic acid 600 mg capsule 600 mg PO BEDTIME 12/11/18 08/02/22 lisinopril 20 mg tablet 20 mg PO QPM 12/11/18 08/02/22 apixaban 5 mg tablet (Eliquis) 5 mg PO BID 10/26/20 08/02/22 amlodipine 10 mg tablet 5 mg PO DAILY 02/20/22 08/02/22 ResMed AirSense Auto 03/27/22 08/02/22 Vitamin D3 See Rx Instructions PO DAILY 06/13/22 08/02/22 linaclotide 145 mcg capsule 145 mcg PO DAILY PRN 10/03/22 10/03/22 (Linzess) multivitamin-ferrous gluconate 10 See Rx Instructions PO DAILY 10/03/22 10/03/22 mg iron/5 mL oral liquid Previous Rx's Medication Instructions Recorded rosuvastatin 5 mg tablet (Crestor) 5 mg PO DAILY 30 days #30 tabs 09/04/20 solifenacin 10 mg tablet (Vesicare) 10 mg PO DAILY #30 tabs 04/26/21 nitroglycerin 0.4 mg sublingual 0.4 mg sublingual Q5-15M PRN Chest 08/15/21 tablet Pain #20 tabs gabapentin 300 mg capsule 600 mg PO BID #360 caps 04/03/22 albuterol sulfate 90 mcg/actuation 1 - 2 inh inhalation Q4-6H PRN 08/02/22 aerosol inhaler shortness of breath or wheezing #8.5 grams inhalational spacing device #50 ea 08/03/22 (Aerochamber Plus Z Stat spacer) polyethylene glycol 3350 17 17 g PO DAILY #238 grams 09/20/22 gram/dose oral powder (Miralax) venlafaxine 25 mg tablet 12.5 mg PO DAILY #30 tabs 10/03/22 Allergies Allergy/AdvReac Type Severity Reaction Status Date / Time No Known Drug Allergies Allergy Verified 10/03/22 08:56 Patient History <YOANDY Vital - Last Filed: 09/20/22 16:59> Medical History Acute GI bleeding Anemia Balance problems (02/08/16) Chickenpox Chronic anticoagulation Coronary artery disease (2008) Coronary artery disease involving qagan [place]ung[place] coronary artery of q[place] heart without angina pectoris (02/08/16) Essential hypertension (02/08/16) Gastroesophageal reflux disease (06/13/16) Headache Hearing loss (2014) History of malignant neoplasm of prostate (04/08/15) Hx of myocardial infarction (Unknown) Hypertension (Unknown) Left foot drop (03/06/17) Lumbar disc disease (2012) Measles Peripheral polyneuropathy (03/06/17) Polio (1950) Prostate cancer (2008) Protein-calorie malnutrition, mild Pure hypercholesterolemia (02/08/16) Spinal stenosis of lumbar region (02/08/16) Statin intolerance (02/08/16) Vitamin D deficiency (11/21/16) Surgical History History of prostate surgery (2009) Hx of heart surgery (2008) Hx of hernia repair (Unknown) Status post laminectomy Family History Father No problems noted. Mother Cancer Grandfather No problems noted. Grandmother No problems noted. Grandfather No problems noted. Grandmother Cancer Family/Other Stroke Heart attack Coronary artery disease Congestive heart failure Social History marital status: household members: none Smoking Status: Former smoker second hand exposure: No alcohol intake: current substance use type: does not use Smoking Status: Former smoker alcohol intake frequency: a few times a week Substance Use Type: does not use Exam <YOANDY Vital - Last Filed: 09/20/22 16:59> Initial Vital Signs Initial Vital Signs: Vital Signs Temperature 97.0 F L 09/20/22 11:10 Pulse Rate 89 09/20/22 11:10 Respiratory Rate 15 09/20/22 11:10 Blood Pressure 141/69 H 09/20/22 11:10 Pulse Oximetry 100 09/20/22 11:10 Oxygen Delivery Method 09/20/22 11:10 <Zackery Arshad MD - Last Filed: 10/05/22 07:30> Initial Vital Signs Initial Vital Signs: Vital Signs Temperature 97.0 F L 09/20/22 11:10 Pulse Rate 89 09/20/22 11:10 Respiratory Rate 15 09/20/22 11:10 Blood Pressure 141/69 H 09/20/22 11:10 Pulse Oximetry 100 09/20/22 11:10 Oxygen Delivery Method 09/20/22 11:10 Course <YOANDY Vital - Last Filed: 09/20/22 16:59> Orders Ordered: Discontinued Medications Hydrocodone Bitart/Acetaminophen (Hydrocodone/Acet 5/325 Tablet) 1 tab PO NOW ONE Stop: 09/20/22 12:55 Last Admin: 09/20/22 13:22 Dose: 1 tab Documented By: GUSTAVO Lidocaine (Lidocaine Patch 1 Each Adh..Patch) 1 each TOP NOW ONE Stop: 09/20/22 12:54 Last Admin: 09/20/22 13:23 Dose: 1 each Documented By: GUSTAVO Methocarbamol (Methocarbamol 500 Mg Tablet) 500 mg PO NOW ONE Stop: 09/20/22 12:55 Last Admin: 09/20/22 13:23 Dose: 500 mg Documented By: GUSTAVO Prednisone (Prednisone 20 Mg Tablet) 40 mg PO NOW ONE Stop: 09/20/22 12:55 Last Admin: 09/20/22 13:23 Dose: 40 mg Documented By: RB Vital Signs Vital signs: Vital Signs - 8 hr 09/20/22 11:10 09/20/22 11:33 09/20/22 11:34 Temperature 97.0 F L Pulse Rate 89 63 Respiratory Rate 15 Blood Pressure 141/69 H 156/70 H Pulse Oximetry 100 98 Oxygen Delivery Method Room Air 09/20/22 11:34 09/20/22 12:01 09/20/22 12:30 Temperature Pulse Rate 63 66 65 Respiratory Rate Blood Pressure Pulse Oximetry 98 85 L 97 Oxygen Delivery Method 09/20/22 13:00 09/20/22 13:22 09/20/22 13:22 Temperature Pulse Rate 58 L 56 L Respiratory Rate Blood Pressure 141/65 H Pulse Oximetry 96 97 Oxygen Delivery Method 09/20/22 13:30 Temperature Pulse Rate 64 Respiratory Rate Blood Pressure Pulse Oximetry 97 Oxygen Delivery Method <Zackery Arshad MD - Last Filed: 10/05/22 07:30> Orders Ordered: Discontinued Medications Hydrocodone Bitart/Acetaminophen (Hydrocodone/Acet 5/325 Tablet) 1 tab PO NOW ONE Stop: 09/20/22 12:55 Last Admin: 09/20/22 13:22 Dose: 1 tab Documented By: GUSTAVO Lidocaine (Lidocaine Patch 1 Each Adh..Patch) 1 each TOP NOW ONE Stop: 09/20/22 12:54 Last Admin: 09/20/22 13:23 Dose: 1 each Documented By: GUSTAVO Methocarbamol (Methocarbamol 500 Mg Tablet) 500 mg PO NOW ONE Stop: 09/20/22 12:55 Last Admin: 09/20/22 13:23 Dose: 500 mg Documented By: GUSTAVO Prednisone (Prednisone 20 Mg Tablet) 40 mg PO NOW ONE Stop: 09/20/22 12:55 Last Admin: 09/20/22 13:23 Dose: 40 mg Documented By: GUSTAVO Vital Signs Vital signs: Vital Signs - 8 hr 09/20/22 11:10 09/20/22 11:33 09/20/22 11:34 Temperature 97.0 F L Pulse Rate 89 63 Respiratory Rate 15 Blood Pressure 141/69 H 156/70 H Pulse Oximetry 100 98 Oxygen Delivery Method Room Air 09/20/22 11:34 09/20/22 12:01 09/20/22 12:30 Temperature Pulse Rate 63 66 65 Respiratory Rate Blood Pressure Pulse Oximetry 98 85 L 97 Oxygen Delivery Method 09/20/22 13:00 09/20/22 13:22 09/20/22 13:22 Temperature Pulse Rate 58 L 56 L Respiratory Rate Blood Pressure 141/65 H Pulse Oximetry 96 97 Oxygen Delivery Method 09/20/22 13:30 Temperature Pulse Rate 64 Respiratory Rate Blood Pressure Pulse Oximetry 97 Oxygen Delivery Method MDM - Male Genitourinary <Dorcas Anca Ibarra, [facility] - Last Filed: 09/20/22 16:59> Lab Data 09/20/22 11:10 09/20/22 11:10 Labs: Lab Results 09/20/22 09/20/22 09/20/22 Range/Units 11:10 11:10 11:30 WBC 4.6 (4.5-11.0) X10^3/uL RBC 3.94 L (4.5-5.9) X10^6/uL Hgb 12.6 L (13.5-17.5) g/dL Hct 37.8 L (41-53) % MCV 95.8 (80-100) fL MCH 32.1 (26-34) PG MCHC 33.5 (30-36) % RDW 14.7 (11.6-14.8) % Plt Count 128 L (150-400) X10^3/uL Neut % (Auto) 62.7 (50-75) % Lymph % (Auto) 21.9 L (25-40) % Warren % (Auto) 11.3 (3-14) % Eos % (Auto) 3.8 (2-4) % Baso % (Auto) 0.3 (0-2) % Neut # (Auto) 2900 (8504-2280) /uL Lymph # (Auto) 1000 L (0084-7529) /uL Warren # (Auto) 500 (0-900) /uL Eos # (Auto) 200 (0-450) /uL Baso # (Auto) 0 (0-100) /uL Sodium 139 (137-145) mmol/L Potassium 4.6 (3.4-5.1) mmol/L Chloride 107 (98-107) mmol/L Carbon Dioxide 25 (22-32) mmol/L BUN 18 (9-20) mg/dL Creatinine 0.87 (0.66-1.25) mg/dL Estimated GFR > 60 (>60) mL/min BUN/Creatinine Ratio 20.7 (6-22) Glucose 107 (80-110) mg/dL Calcium 8.6 (8.4-10.2) mg/dL Total Bilirubin 0.4 (0.2-1.3) mg/dL AST 27 (17-59) IU/L ALT 27 (<50) IU/L Alkaline Phosphatase 52 (38-126) U/L Total Protein 6.7 (6.3-8.2) g/dL Albumin 3.4 L (3.5-5.0) g/dL Globulin 3.3 (1.7-4.1) g/dL Albumin/Globulin Ratio 1.0 (1.0-2.8) Urine RBC 1-5/hpf (0-5/HPF) Urine WBC 0-1/hpf (0-5/HPF) Urine Bacteria None seen (None) Ur Culture Indicated? Cult not indicated Urine Dip Bedside Urine Glucose Negative Bedside Urine Bilirubin - Negative Bedside Urine Ketone - Negative Urine Specific Blencoe 1.015 Bedside Urine Occult Blood +/- Bedside Urine pH 6.0 Bedside Urine Protein - Negative Bedside Urine Urobilinogen - Negative Bedside Urine Nitrite - Negative Bedside Urine Leukocytes - Negative Esterase Imaging Data CT scan - abdomen/pelvis: Radiologist's Impression: PROCEDURE:? CT KIDNEY URETER BLADDER (KUB) ? INDICATIONS:? left flank pain ? TECHNIQUE:? Axial sections were acquired from the lung bases to the pubic symphysis.? Coronal and sagittal reformats were performed.? For radiation dose reduction, the following was used: ?automated exposure control, adjustment of mA and/or kV according to patient size.? ? COMPARISON:? [facility], CT, CT ABDOMEN PELVIS WO/W CHRISTINE, 04/09/2019, 10:16. ? FINDINGS:? Image quality:? Degraded by arms at side position ? Lower chest:? Basal scarring/atelectasis.? Incidentally noted pericardial and coronary artery calcifications.? Pleural thickening on the left.? Biatrial enlargement. ? Solid organs:? Calcified granulomas in the liver gallbladder is unremarkable.? Pancreatic parenchymal atrophy, as before.? No pancreatic ductal dilation or biliary ductal dilation.? Splenic granulomas.? No adrenal nodules.? No right hydronephrosis.? No radiopaque calculi on the right. No left hydronephrosis.? No radiopaque calculi on the left.? Mild fat stranding is seen around the left renal pelvis and left ureter, although this is not significantly changed compared to 2019 imaging. ? Vessels and lymph nodes:? No abdominal aortic aneurysm.? Moderate atherosclerotic disease. ? Bowel and peritoneum:? No hiatal hernia.? No small bowel obstruction.? Above average fecal loading.? Normal appendix. No pathologic ascites.? Similar fat stranding around the inferior portion of the left pericolic gutter compared to 2019, possibly senescent ? Body wall:? Some fatty atrophy of the left gluteal musculature. ? Pelvis:? Prostate radiation beads.? Mild bladder wall thickening, limited evaluation due to underdistention. ? Bones:? Degenerative changes without acute or suspicious osseous finding. ? IMPRESSION:? No acute abdominopelvic pathology.? Please correlate with urinalysis to evaluate the possible fat stranding around the left renal pelvis and left ureter. ? Other stable/incidental findings are described above.? Particular note is made of pericardial calcifications and coronary calcifications. ? ? Dictated by: Mak Lopez M.D. on 09/20/2022 at 12:02 ? ? Approved by: Mak Lopez M.D. on 09/20/2022 at 12:09 ? MDM Narrative Medical decision making narrative: Chief complaint: Left flank pain exacerbated by leg movements and bilateral sciatica Multiple etiologies for patient's symptoms considered including, but not limited to: acute fracture, cauda equina, AAA, viscus perforation, epidural abscess, renal colic, pyelonephritis, disc injury/herniation w/radiculopathy, spinal stenosis, trauma, ligamental injury, paraspinal or other muscular strain, chronic pain, osteoarthritis, herpes zoster and critical cord compression. Course of care: I sent for this patient and saw that nursing initiated orders were placed including lab work, urine and urine microscopy with CT KUB. Patient is in a moderate amount of pain, assessed his symptoms, he has tenderness to the left side. Pt is nontoxic appearing. Patient has soft tissue tenderness to palpation. Pt is neurovascularly intact distally, afebrile, without immunosuppression or evidence of infection, peritoneal signs, hypertensive crisis, incontinence, or menengial signs. Patient's straight leg raise test was exquisitely positive on the right with positive symptoms on the left. Without weakness, decreased right flexes, sensation deficit or history of injury. He was nontender to his lumbar/sacral spine. No back pain red flags on history or physical. Went over to CT to discuss bony imaging on patient's KUB to re-evaluate this for possible lumbar reduced with a symptoms. Patient has been more active than usual over the last few days and this is likely a flare of his chronic degenerative spine disease. CT report shows no acute abdominopelvic pathology, it does show mild fat stranding around the left renal pelvis and left ureter, bony evaluation shows degenerative changes without acute or suspicious osseous findings. He is nontender over this area, without history of fever, chills. His UA is negative for leukocytes, bacteria, patient has rectal tone and is continent of urine without retention or dribbling. He has had no bowel or urinary incontinence/retention, no saddle anesthesia, no new/worsening distal weakness, decreased reflexes or foot drop, no trauma, no bony tenderness to palpation, no history of IV substance use, or bony tenderness. Ordered pain medication for him to include prednisone, muscle relaxer, hydrocodone, and a topical lidocaine patch. Patient has history of chronic low back pain and his straight leg test exacerbated patient's pain to a 10 bilaterally. UA shows hematuria, CT is pertinent for fat stranding near the renal pelvis and left ureter. No stone visualized in left kidney, ureter or bladder. Patient has history of prostate cancer and denies any urinary retention. Labs reviewed and interpreted by myself: Patient is without leukocytosis or anemia, chronic thrombocytopenia with a platelet count today of 128, chemistries unremarkable, GFR and creatinine are consistent with baseline and within normal ranges, without electrolyte abnormality or elevation of liver enzymes. Urine microscopy shows small amount of blood, negative for bacteria or RBCs. Imaging reviewed: CT abdomen pelvis, this was Re evaluated for lumbar sacral etiology of patient's bilateral radiculopathy. Shows degenerative changes without acute changes. CT of abdomen is pertinent for fat stranding around the left renal pelvis and left ureter consistent with patient's exam with CVA tenderness on the left. Consultations: Patient will follow-up with his urologist and his primary care provider as well as his team at [facility] to include Dr. Merchant from Orthopedics, Chantel Poe from Urology Patient's symptoms improved over duration of stay with above-stated therapies. Findings and discharge diagnosis discussed with patient/family followed by verbalization of understanding. Return precautions discussed with patient/family whom verbalize understanding of diagnosis and plan <Zackery Arshad MD - Last Filed: 10/05/22 07:30> Lab Data Labs: Lab Results 09/20/22 09/20/22 09/20/22 Range/Units 11:10 11:10 11:30 WBC 4.6 (4.5-11.0) X10^3/uL RBC 3.94 L (4.5-5.9) X10^6/uL Hgb 12.6 L (13.5-17.5) g/dL Hct 37.8 L (41-53) % MCV 95.8 (80-100) fL MCH 32.1 (26-34) PG MCHC 33.5 (30-36) % RDW 14.7 (11.6-14.8) % Plt Count 128 L (150-400) X10^3/uL Neut % (Auto) 62.7 (50-75) % Lymph % (Auto) 21.9 L (25-40) % Warren % (Auto) 11.3 (3-14) % Eos % (Auto) 3.8 (2-4) % Baso % (Auto) 0.3 (0-2) % Neut # (Auto) 2900 (1541-6400) /uL Lymph # (Auto) 1000 L (6902-4163) /uL Warren # (Auto) 500 (0-900) /uL Eos # (Auto) 200 (0-450) /uL Baso # (Auto) 0 (0-100) /uL Sodium 139 (137-145) mmol/L Potassium 4.6 (3.4-5.1) mmol/L Chloride 107 (98-107) mmol/L Carbon Dioxide 25 (22-32) mmol/L BUN 18 (9-20) mg/dL Creatinine 0.87 (0.66-1.25) mg/dL Estimated GFR > 60 (>60) mL/min BUN/Creatinine Ratio 20.7 (6-22) Glucose 107 (80-110) mg/dL Calcium 8.6 (8.4-10.2) mg/dL Total Bilirubin 0.4 (0.2-1.3) mg/dL AST 27 (17-59) IU/L ALT 27 (<50) IU/L Alkaline Phosphatase 52 (38-126) U/L Total Protein 6.7 (6.3-8.2) g/dL Albumin 3.4 L (3.5-5.0) g/dL Globulin 3.3 (1.7-4.1) g/dL Albumin/Globulin Ratio 1.0 (1.0-2.8) Urine RBC 1-5/hpf (0-5/HPF) Urine WBC 0-1/hpf (0-5/HPF) Urine Bacteria None seen (None) Ur Culture Indicated? Cult not indicated Urine Dip Bedside Urine Glucose Negative Bedside Urine Bilirubin - Negative Bedside Urine Ketone - Negative Urine Specific [place]coe 1.015 Bedside Urine Occult Blood +/- Bedside Urine pH 6.0 Bedside Urine Protein - Negative Bedside Urine Urobilinogen - Negative Bedside Urine Nitrite - Negative Bedside Urine Leukocytes - Negative Esterase Discharge Plan Departure Patient Disposition: Home Clinical Impression: Acute left flank pain, Hematuria, Bilateral lumbar radiculopathy Instructions: DI for Kidney Stones, Lumbar Radiculopathy Activity Restrictions/Additional Instructions: *You have been diagnosed with inflammation to your kidney ureter consistent with passage of a kidney stone. There were no visualized stones in the left kidney, inflammation around the renal pelvis ureter. There were no dangerous findings on CT scan. The bone interpretation of your spine was consistent with degenerative changes without acute change or suspicious bony abnormality. This is most likely radiculopathy in conjunction with this left flank pain. For your pain and inflammation since you are on anticoagulants please use prednisone 20 mg daily, take this with food and water, please take muscle relaxers for muscle spasms, take hydrocodone every 6 hours with 650 mg of Tylenol as needed for your pain, please stay hydrated. Schedule appointment for follow-up with your urology team. Please schedule follow-up sooner with your PCP for a referral to physical therapy, pain management, and or possible steroid injections to help with this pain. Thank you for coming in today, I am sorry about your pain. Please use a topical gel, salve or lidocaine patch over areas of pain to help with additional pain relief. *What to do: *Please continue to take your regular medications as directed. [ x] New medication prescriptions sent to your pharmacy: [[facility] ] [ ] New medication written as a paper prescription [ ] No new medications given *Please follow up with your primary care provider in 2-3 days, call for an appointment. Let them know you were seen in the Emergency Department and that we asked that you be seen for follow-up. We will electronically transmit a record of today's note if your PCP is in our system *If you do not have a primary care provider please contact [phone] to establish care with one of [facility] primary care providers. *Return to Emergency Department if you should have any new, worsening, or concerning symptoms, such as [fever greater than 101F, chills, worsening pain, persistent vomiting or other bothersome symptoms]. Prescriptions: New polyethylene glycol 3350 [Miralax] 17 gram/dose powder 17 g PO DAILY Qty: 238 0RF No Action lisinopril 20 mg tablet 20 mg PO QPM alpha lipoic acid 600 mg capsule 600 mg PO BEDTIME tamsulosin [Flomax] 0.4 MG capsule,extended release 24hr 0.8 mg PO QPM Qty: 0 CoQ-10 400 mg PO QPM Qty: 0 ascorbic acid (vitamin C) 500 MG tablet 500 mg PO DAILY Qty: 0 [VITAMIN K2] 100 mcg PO QPM Qty: 0 Label Comments: vitamin K2 MK7 c MenaQ7 Vesicare 10 mg tablet 10 mg PO DAILY Qty: 30 0RF nitroglycerin 0.4 mg tablet, sublingual 0.4 mg SL Q5-15M PRN (Reason: Chest Pain) Qty: 20 11RF gabapentin 300 mg capsule 600 mg PO BID Qty: 360 2RF (DME) Aerochamber Plus Z Stat Spacer See Rx Instructions .Route Qty: 50 0RF Rx Instructions: As directed Eliquis 5 mg tablet 5 mg PO BID Vitamin D3 1,500 unit See Rx Instructions PO DAILY Rx Instructions: 5000-1000IU daily orally daily; amlodipine 10 mg tablet 5 mg PO DAILY Label Comments: takes 5 mg in the evening Rx Instructions: Report pressures to PCP Linzess 145 mcg capsule 145 mcg PO DAILY PRN multivitamin-ferrous gluconate 10 mg iron/5 mL liquid See Rx Instructions PO DAILY Rx Instructions: 10mL twice per day orally daily; venlafaxine 25 mg tablet 12.5 mg PO DAILY Qty: 30 1RF Rx Instructions: Take 1/2 tab at bedtime daily for depression, may increase as tolerated to 1 tab in 2 weeks. albuterol sulfate 90 mcg/actuation HFA aerosol inhaler 1 - 2 inh inhalation Q4-6H PRN (Reason: shortness of breath or wheezing) Qty: 8.5 11RF Rx Instructions: with a spacer rosuvastatin [Crestor] 5 mg tablet 5 mg PO DAILY 30 Days Qty: 30 0RF (DME) ResMed AirSense Auto See Rx Instructions .Route .MEDSUPPLY Rx Instructions: CPAP Min: 6 Max: 16 DME: MANGO ABAD: 02/[birth year]/21 Referrals: Marbella Duenas ARNP [Primary Care Provider] - Chantel Poe PA-C [Non-Staff] - Stand Alone Forms: Patient Portal/API <Zackery Arshad MD - Last Filed: 10/05/22 07:30> Cosign ED Attending Cosignature Attestation: I was immediately available in the department for consultation. ?This documentation has been reviewed and I agree with assessment and plan. Supervised by Zackery Arshad MD
== END 2022-09-20 13:55 | disposition home or self-care (01) ==
PROVIDERS: Emergency Medicine; Emergency Provider Nurse Practitioner Critical Care Medicine; Family Provider Student in an Organized Health Care Education/Training Program; PCP Nurse Practitioner
DX: R10.9 Unspecified abdominal pain (principal); M54.16 Radiculopathy, lumbar region; R31.9 Hematuria, unspecified
CPT/HCPCS: 74176; 80053; 81003; 81015; 85025; 99284

== ENCOUNTER → 2022-12-11 08:46 | Outpatient (CLI) | payer MEDICARE, OTHER, SELFPAY ==
[2022-07-31 15:20] VITALS: BMI 30.9
[2022-12-11 10:03] LABS: Add Manual Diff / Slide Review NO; Basophils Absolute Auto 0 /uL (0-100); Basophils Percent Auto 0.2 % (0-2); Eosinophils Absolute Auto 100 /uL (0-450); Hematocrit 37.9 % (41-53); Hemoglobin 12.8 g/dL (13.5-17.5); Lymphocytes Absolute Auto 900 /uL (1100-4500); Lymphocytes Percent Auto 14.4 % (25-40); Mean Corpuscular HGB Conc 33.8 % (30-36); Mean Corpuscular Hemoglobin 32.4 PG (26-34); Mean Corpuscular Volume 95.9 fL (80-100); Monocytes Absolute Auto 600 /uL (0-900); Monocytes Percent Auto 9.8 % (3-14); Neutrophils Absolute Auto 4400 /uL (1500-7000); Neutrophils Percent Auto 73.6 % (50-75); Platelet Count 146 X10^3/uL (150-400); Red Blood Cell Count 3.95 X10^6/uL (4.5-5.9); Red Cell Distribution Width 13.7 % (11.6-14.8)
[2022-12-11 10:22] LABS: BUN Creatinine Ratio 19.3 (6-22); Blood Urea Nitrogen 16 mg/dL (9-20); Calcium 8.4 mg/dL (8.4-10.2); Carbon Dioxide 24 mmol/L (22-32); Chloride 106 mmol/L (98-107); Cholesterol 139 mg/dL (140-199); Estimated Glomerular Filt Rate > 60 mL/min (>60); Glucose 104 mg/dL (80-110); HDL Cholesterol 64 mg/dL (40-60); HEMOLYSIS < 15 (0-50); LDL Cholesterol Calculated 63 mg/dL (<100); Potassium 4.4 mmol/L (3.4-5.1); Sodium 135 mmol/L (137-145); Triglycerides 59 mg/dL (35-150)
== END ==
PROVIDERS: Family Provider Student in an Organized Health Care Education/Training Program; PCP Nurse Practitioner; Referring Provider Internal Medicine Cardiovascular Disease; Visit Provider Internal Medicine Cardiovascular Disease
DX: I48.19 Other persistent atrial fibrillation (principal); E78.5 Hyperlipidemia, unspecified
CPT/HCPCS: 36415; 80048; 80061; 85025

== ENCOUNTER → 2023-03-21 12:53 | Outpatient (CLI) | payer MEDICARE, OTHER, SELFPAY ==
[2022-07-31 15:20] VITALS: BMI 30.9
--- NOTE | 2023-03-21 12:54 | DI.US.S_ITS ---
PROCEDURE: US PERIPH VENOUS LOW EXTREM RT INDICATIONS: hx DVT, cramping and swelling right thigh TECHNIQUE: Real-time imaging, as well as color and pulse Doppler interrogation, were performed of the lower extremity deep veins from the inguinal ligament to the popliteal fossa. COMPARISON: None. FINDINGS: The common femoral, femoral and popliteal veins are normally compressible, and free of intraluminal thrombus. Color and pulse Doppler demonstrate normal phasic intraluminal flow. 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 There is normal augmentation response to distal compression maneuver. IMPRESSION: Negative for deep venous thrombosis. Dictated by: Liam Ulloa M.D. on 03/21/2023 at 13:12 Approved by: Liam Ulloa M.D. on 03/21/2023 at 13:13
== END ==
PROVIDERS: Family Provider Student in an Organized Health Care Education/Training Program; PCP Nurse Practitioner; Referring Provider Nurse Practitioner; Visit Provider Nurse Practitioner
DX: R25.2 Cramp and spasm (principal); M79.89 Other specified soft tissue disorders; Z86.718 Personal history of other venous thrombosis and embolism
CPT/HCPCS: 93971

== ENCOUNTER → 2023-05-10 09:55 | Outpatient (CLI) | payer MEDICARE, OTHER, SELFPAY ==
[2022-07-31 15:20] VITALS: BMI 30.9
--- NOTE | 2023-05-10 10:02 | DI.RAD.S_ITS ---
PROCEDURE: XR CHEST 2V INDICATIONS: CORANARY ARTERY DISEASE TECHNIQUE: 2 views of the chest were acquired. COMPARISON: [facility], CR, XR CHEST 2V, 07/23/2022, 14:28. FINDINGS: Surgical changes and devices: None. Lungs and pleura: Lungs are clear. No pleural effusions or pneumothorax. Mediastinum: Mediastinal contours are normal. Heart size is normal. Bones and chest wall: No suspicious bony abnormalities. Soft tissues appear unremarkable. IMPRESSION: No acute cardiopulmonary abnormality is seen. Approved by: Benny Hernadez M.D. on 05/10/2023 at 16:24
[2023-05-10 11:02] LABS: Add Manual Diff / Slide Review NO; Basophils Absolute Auto 0 /uL (0-100); Basophils Percent Auto 0.4 % (0-2); Eosinophils Absolute Auto 100 /uL (0-450); Eosinophils Percent Auto 1.7 % (2-4); Hematocrit 39.9 % (41-53); Hemoglobin 13.4 g/dL (13.5-17.5); Lymphocytes Absolute Auto 1100 /uL (1100-4500); Lymphocytes Percent Auto 18.4 % (25-40); Mean Corpuscular HGB Conc 33.7 % (30-36); Mean Corpuscular Hemoglobin 32.3 PG (26-34); Mean Corpuscular Volume 95.9 fL (80-100); Monocytes Absolute Auto 700 /uL (0-900); Monocytes Percent Auto 10.9 % (3-14); Neutrophils Absolute Auto 4100 /uL (1500-7000); Neutrophils Percent Auto 68.6 % (50-75); Platelet Count 148 X10^3/uL (150-400); Red Blood Cell Count 4.16 X10^6/uL (4.5-5.9); Red Cell Distribution Width 13.5 % (11.6-14.8)
[2023-05-10 11:18] LABS: BUN Creatinine Ratio 24.5 (6-22); Blood Urea Nitrogen 26 mg/dL (9-20); Calcium 8.9 mg/dL (8.4-10.2); Carbon Dioxide 23 mmol/L (22-32); Chloride 107 mmol/L (98-107); Estimated Glomerular Filt Rate > 60 mL/min (>60); Glucose 98 mg/dL (80-110); HEMOLYSIS < 15 (0-50); Potassium 4.8 mmol/L (3.4-5.1); Sodium 139 mmol/L (137-145)
[2023-05-10 11:28] LABS: NT-proBNP (BNP-Adult 18+) 440 pg/mL (<450)
== END ==
PROVIDERS: Family Provider Student in an Organized Health Care Education/Training Program; PCP Nurse Practitioner; Referring Provider Internal Medicine Cardiovascular Disease; Visit Provider Internal Medicine Cardiovascular Disease
DX: I25.10 Atherosclerotic heart disease of native coronary artery without angina pectoris (principal); R06.09 Other forms of dyspnea; E78.5 Hyperlipidemia, unspecified; I10 Essential (primary) hypertension; Z95.5 Presence of coronary angioplasty implant and graft
CPT/HCPCS: 36415; 71046; 80048; 83880; 85025

== ENCOUNTER 2023-05-29 18:28 | Emergency (ER) | payer MEDICARE, OTHER, SELFPAY ==
[2022-07-31 15:20] VITALS: BMI 30.9
[2023-05-29] VITALS (11 sets, daily range): BP systolic 136–156; BP diastolic 61–69; PULSE 54–70; RESP 18–20; TEMP 37.4; O2SAT 94–96; BMI 32.3
--- NOTE | 2023-05-29 18:31 | ED_ITS ---
HPI - General Adult General Chief complaint: Upper Respiratory Symptoms Stated complaint: wants tested for covid, RSV or flu Time Seen by Provider: 05/29/23 18:29 History of Present Illness HPI narrative: 87-year-old male with multiple upper respiratory symptoms including sore throat, cough, fever and body aches as well as congestion since yesterday. He has a history of hypertension and takes Eliquis twice daily for atrial fibrillation. He denies any obvious sick contacts. He states that he is more short of breath when he walks and perhaps was a bit short of breath when he laid flat earlier but is not short of breath as we speak, not short of breath with conversation. Denies any nausea, vomiting or diarrhea. Denies any dysuria, frequency or urgency. Denies any lower extremity pain, swelling or redness, denies any weight gain. Related Data Home Medications Medication Instructions Recorded Confirmed CoQ-10 400 mg PO QPM ##0 11/21/16 03/21/23 ascorbic acid (vitamin C) 500 mg 500 mg PO DAILY ##0 11/21/16 03/21/23 tablet tamsulosin 0.4 mg capsule (Flomax) 0.8 mg PO QPM ##0 11/21/16 03/21/23 [VITAMIN K2] 100 mcg PO QPM ##0 03/06/17 03/21/23 alpha lipoic acid 600 mg capsule 600 mg PO BEDTIME 12/11/18 03/21/23 lisinopril 20 mg tablet 20 mg PO QPM 12/11/18 03/21/23 apixaban 5 mg tablet (Eliquis) 5 mg PO BID 10/26/20 03/21/23 amlodipine 10 mg tablet 5 mg PO DAILY 02/20/22 03/21/23 [facility] [employer] Auto 03/27/22 03/21/23 Vitamin D3 See Rx Instructions PO DAILY 06/13/22 03/21/23 multivitamin-ferrous gluconate 10 See Rx Instructions PO DAILY 10/03/22 03/21/23 mg iron/5 mL oral liquid trospium 60 mg capsule,extended 60 mg PO DAILY 11/20/22 03/21/23 release 24 hr Previous Rx's Medication Instructions Recorded rosuvastatin 5 mg tablet (Crestor) 5 mg PO DAILY 30 days #30 tabs 09/04/20 omeprazole 20 mg capsule,delayed 20 mg PO DAILY #90 caps 01/19/23 release nitroglycerin 0.4 mg sublingual 0.4 mg sublingual Q5-15M PRN Chest 03/02/23 tablet Pain #20 tabs venlafaxine 25 mg tablet See Rx Instructions .Route 03/14/23 .COMPLEX #90 tabs mirabegron 25 mg tablet,extended 25 mg PO DAILY #90 tabs 03/21/23 release 24 hr gabapentin 300 mg capsule 900 mg PO BID #360 caps 05/01/23 furosemide 40 mg tablet (Lasix) 40 mg PO DAILY #3 tabs 05/29/23 Allergies Allergy/AdvReac Type Severity Reaction Status Date / Time No Known Drug Allergies Allergy Verified 03/21/23 12:09 Review of Systems Review of Systems Narrative: GENERAL: See HPI HEENT: See HPI RESPIRATORY: See HPI CARDIOVASCULAR: Denies chest pain, palpitations, orthopnea, edema, GASTROINTESTINAL: Denies nausea, vomiting, abdominal pain, diarrhea, constipation, melena. : Denies dysuria, frequency, incontinence, hematuria, urinary retention. MUSCULOSKELETAL: denies weakness, joint pain, or bony pain SKIN: Denies rash, skin lesions, or other NEUROLOGIC: Denies weakness, headache, numbness, change in speech, confusion, seizures, incoordination. PSYCHIATRIC: No concerning psychosocial issues. 12 point review of systems is negative except for those stated above Patient History Medical History Acute GI bleeding Anemia Balance problems (02/08/16) Chickenpox Chronic anticoagulation Coronary artery disease (2008) Coronary artery disease involving [place] coronary artery of [place] heart without angina pectoris (02/08/16) Essential hypertension (02/08/16) Gastric reflux Gastroesophageal reflux disease (06/13/16) Headache Hearing loss (2014) History of malignant neoplasm of prostate (04/08/15) Hx of myocardial infarction (Unknown) Hypertension (Unknown) Left foot drop (03/06/17) Lumbar disc disease (2012) Measles Peripheral polyneuropathy (03/06/17) Polio (1950) Prostate cancer (2008) Protein-calorie malnutrition, mild Pure hypercholesterolemia (02/08/16) Spinal stenosis of lumbar region (02/08/16) Statin intolerance (02/08/16) Vitamin D deficiency (03/28/17) Surgical History History of prostate surgery (2010) Hx of heart surgery (2009) Hx of hernia repair (Unknown) Status post laminectomy Family History Father No problems noted. Mother Cancer Grandfather No problems noted. Grandmother No problems noted. Grandfather No problems noted. Grandmother Cancer Family/Other Stroke Heart attack Coronary artery disease Congestive heart failure Social History marital status: household members: none Smoking Status: Former smoker second hand exposure: No alcohol intake: current substance use type: does not use Smoking Status: Former smoker alcohol intake frequency: a few times a week Substance Use Type: does not use Exam Narrative Exam Narrative: GENERAL: [87] year old patient appears stated age. Well-developed patient, in mild distress. HEAD: Atraumatic. Normocephalic. EYES: Pupils equal round and reactive. Extraocular motions intact. No scleral icterus. No injection or drainage. ENT: Nose without bleeding, purulent drainage. Throat without erythema, tonsillar hypertrophy or exudate. Airway patent. NECK: Trachea midline. Non tender CARDIOVASCULAR: Regular rate and rhythm without murmurs, gallops, or rubs. RESPIRATORY: No significant work of breathing, no use of accessory muscles, no hypoxemia. Faint crackles in bilateral bases GASTROINTESTINAL: Abdomen soft, non-tender, nondistended. EXTREMITIES: No edema or joint tenderness. BACK: Nontender without deformity or crepitance. No flank tenderness. NEURO: AOx3. SKIN: No rash or erythema of visible areas Initial Vital Signs Initial Vital Signs: Vital Signs Temperature 99.4 F 05/29/23 18:33 Pulse Rate 70 05/29/23 18:33 Respiratory Rate 18 05/29/23 18:33 Blood Pressure 136/61 05/29/23 18:33 Pulse Oximetry 96 05/29/23 18:33 Oxygen Delivery Method Room Air 05/29/23 18:33 Course Orders Ordered: ED Orders 05/29/23 18:38 Covid-19 + FLU A/B + RSV - PCR Stat 05/29/23 19:30 Chest [XR chest 2V] Stat 05/29/23 21:02 C-Reactive Protein Quant Stat Complete Blood Count AUTO DIFF Stat Comprehensive Metabolic Panel Stat Lactate (Lactic Acid) Stat Magnesium Stat NT-proBNP (BNP-Adult 18+) Stat Procalcitonin Stat Troponin & CK Cardiac Panel Stat 05/29/23 22:10 Blood Culture Stat Vital Signs Vital signs: Vital Signs - 8 hr 05/29/23 18:33 05/29/23 18:52 05/29/23 19:00 Temperature 99.4 F Pulse Rate 70 66 65 Respiratory Rate 18 Blood Pressure 136/61 Pulse Oximetry 96 95 94 Oxygen Delivery Method Room Air 05/29/23 19:30 05/29/23 20:00 05/29/23 20:30 Temperature Pulse Rate 70 54 L 58 L Respiratory Rate Blood Pressure Pulse Oximetry 95 95 96 Oxygen Delivery Method 05/29/23 21:00 05/29/23 21:30 05/29/23 22:00 Temperature Pulse Rate 58 L 57 L 61 Respiratory Rate 20 Blood Pressure Pulse Oximetry 96 96 96 Oxygen Delivery Method 05/29/23 22:30 05/29/23 22:47 Temperature Pulse Rate 61 Respiratory Rate Blood Pressure 156/69 H Pulse Oximetry 96 Oxygen Delivery Method Medical Decision Making Lab Data 05/29/23 21:02 05/29/23 21:02 Labs: Lab Results 05/29/23 05/29/23 05/29/23 Range/Units 18:38 21:02 21:02 WBC 9.3 (4.5-11.0) X10^3/uL RBC 4.10 L (4.5-5.9) X10^6/uL Hgb 13.2 L (13.5-17.5) g/dL Hct 39.1 L (41-53) % MCV 95.3 (80-100) fL MCH 32.3 (26-34) PG MCHC 33.9 (30-36) % RDW 13.9 (11.6-14.8) % Plt Count 136 L (150-400) X10^3/uL Neut % (Auto) 88.4 H (50-75) % Lymph % (Auto) 4.7 L (25-40) % [place] % (Auto) 6.7 (3-14) % Eos % (Auto) 0.1 L (2-4) % Baso % (Auto) 0.1 (0-2) % Neut # (Auto) 8200 H (1481-0380) /uL Lymph # (Auto) 400 L (2478-8757) /uL [place] # (Auto) 600 (0-900) /uL Eos # (Auto) 0 (0-450) /uL Baso # (Auto) 0 (0-100) /uL Sodium 133 L (137-145) mmol/L Potassium 4.2 (3.4-5.1) mmol/L Chloride 101 (98-107) mmol/L Carbon Dioxide 22 (22-32) mmol/L BUN 24 H (9-20) mg/dL Creatinine 1.02 (0.66-1.25) mg/dL Estimated GFR > 60 (>60) mL/min BUN/Creatinine Ratio 23.5 H (6-22) Glucose 130 H (80-110) mg/dL Lactate (0.7-2.1) mmol/L Calcium 8.6 (8.4-10.2) mg/dL Magnesium 1.8 (1.6-2.3) mg/dL Total Bilirubin 1.0 (0.2-1.3) mg/dL AST 27 (17-59) IU/L ALT 20 (<50) IU/L Alkaline Phosphatase 52 (38-126) U/L Total Creatine Kinase (55-170) U/L Troponin I (0.01-0.034) ng/mL C-Reactive Protein 3.7 H (<1.0) mg/dL NT-Pro-B Natriuret Pep (<450) pg/mL Total Protein 7.2 (6.3-8.2) g/dL Albumin 3.8 (3.5-5.0) g/dL Globulin 3.4 (1.7-4.1) g/dL Albumin/Globulin Ratio 1.1 (1.0-2.8) Procalcitonin (<0.5) ng/mL SARS-CoV-2 (PCR) Negative (Negative) Influenza A (RT-PCR) Flu a negative (NEGATIVE) Influenza B (RT-PCR) Flu b negative (NEGATIVE) RSV (PCR) Negative (Negative) 05/29/23 05/29/23 05/29/23 Range/Units 21:02 21:02 21:02 WBC (4.5-11.0) X10^3/uL RBC (4.5-5.9) X10^6/uL Hgb (13.5-17.5) g/dL Hct (41-53) % MCV (80-100) fL MCH (26-34) PG MCHC (30-36) % RDW (11.6-14.8) % Plt Count (150-400) X10^3/uL Neut % (Auto) (50-75) % Lymph % (Auto) (25-40) % [place] % (Auto) (3-14) % Eos % (Auto) (2-4) % Baso % (Auto) (0-2) % Neut # (Auto) (8068-6369) /uL Lymph # (Auto) (2432-8831) /uL [place] # (Auto) (0-900) /uL Eos # (Auto) (0-450) /uL Baso # (Auto) (0-100) /uL Sodium (137-145) mmol/L Potassium (3.4-5.1) mmol/L Chloride (98-107) mmol/L Carbon Dioxide (22-32) mmol/L BUN (9-20) mg/dL Creatinine (0.66-1.25) mg/dL Estimated GFR (>60) mL/min BUN/Creatinine Ratio (6-22) Glucose (80-110) mg/dL Lactate 1.7 (0.7-2.1) mmol/L Calcium (8.4-10.2) mg/dL Magnesium (1.6-2.3) mg/dL Total Bilirubin (0.2-1.3) mg/dL AST (17-59) IU/L ALT (<50) IU/L Alkaline Phosphatase (38-126) U/L Total Creatine Kinase 145 (55-170) U/L Troponin I 0.027 (0.01-0.034) ng/mL C-Reactive Protein (<1.0) mg/dL NT-Pro-B Natriuret Pep 1940 H (<450) pg/mL Total Protein (6.3-8.2) g/dL Albumin (3.5-5.0) g/dL Globulin (1.7-4.1) g/dL Albumin/Globulin Ratio (1.0-2.8) Procalcitonin 0.09 (<0.5) ng/mL SARS-CoV-2 (PCR) (Negative) Influenza A (RT-PCR) (NEGATIVE) Influenza B (RT-PCR) (NEGATIVE) RSV (PCR) (Negative) MDM Narrative Medical decision making narrative: CC: 87-year-old male with cough, shortness of breath, nasal congestion, sore throat, body aches and fever Complicating co-morbidities: Age, AFib, anticoagulation, hypertension, hyperlipidemia Data collected from: Patient Medical records reviewed: Prior notes reviewed in our EMR Differential considered, but not limited to: COVID versus flu versus RSV versus pneumonia versus CHF versus pulmonary embolism versus other Exam documented above, pertinent findings include: Heart rate regular, nonlabored breathing, no hypoxemia, faint crackles in bilateral bases, abdomen soft, no lower extremity swelling Lab Test results independently reviewed as above. Pertinent findings:Resp Panel neg or Flu, COVID, RSV Independently reviewed EKG as above Imaging studies independently reviewed: CXR demonstrates no focal consolidation or pleural effusion but mildly prominent interstitium could be atypical infection versus edema versus artifact. Discussion: 87-year-old male with multiple typical URI symptoms including nasal congestion, some sore throat, cough, body aches and low-grade fever. Multiple diagnoses as noted above. At no point as he show any signs of respiratory distress, no use of accessory muscles and no hypoxemia. He shows no signs of sepsis, has no left shift and a negative procalcitonin, chest x-ray with no focal consolidation, unlikely to be pneumonia. Viral panel negative for COVID, flu and RSV though early COVID is still considered in the differential given his symptoms, potential for negative test this early in the course of illness, low lymphocytes and elevated CRP. I did encourage the daughter to speak with the primary care provider to discuss whether they might consider the use of Paxlovid given his response previously and that I was uncomfortable writing it given his negative COVID test. Considered antibiotic coverage for possible atypical pneumonia but given short duration of symptoms and high likelihood of viral etiology we would like to hold off for now. He does admit to some orthopnea and exertional dyspnea this along with faint crackles in his bases, chest x-ray and elevated BNP suggest an element of pulmonary edema. He is given a 3 day course of Lasix. Return precautions discussed and not limited to worsening shortness of breath, vomiting, lightheadedness or other concerning symptoms. He understa nds and agrees with the diagnosis and plan and will follow closely with his primary care provider Disposition: see below, along with detailed discharge instructions that have been reviewed with patient as well as indications for ED re-evaluation and additional outpatient follow up Discharge Plan Departure Patient Disposition: Home Clinical Impression: Upper respiratory infection, viral, Pulmonary edema Instructions: DI for Heart Failure, DI for Viral Upper Respiratory Infection -- Adult Activity Restrictions/Additional Instructions: *You have been diagnosed with [viral upper respiratory infection and mild episode of congestive heart failure. As we discussed your history and physical exam are reassuring. The respiratory swab was negative for COVID, flu and RSV. Your blood work was largely within the normal range and there is no obvious pneumonia on x-ray.] *What to do: *Please continue to take your regular medications as directed. [ x] New medication prescriptions sent to your pharmacy: [[facility] ] [ ] New medication written as a paper prescription [ ] No new medications given *Please follow up with your primary care provider in 2-3 days, call for an appointment. Let them know you were seen in the Emergency Department and that we ask that you be seen in follow up. We will electronically transmit a record of today's note if your PCP is in our system *If you do not have a primary care provider please contact the [facility] Resource line at [phone]. They will ask some questions about your medical history and help get you set up with a doctor in the community. *Return to Emergency Department if you should have any new, worsening or concerning symptoms, such as [fever greater than 101 F, shaking chills, worsening pain, persistent vomiting or other bothersome symptoms] Prescriptions: New furosemide [Lasix] 40 mg tablet 40 mg PO DAILY Qty: 3 0RF No Action lisinopril 20 mg tablet 20 mg PO QPM alpha lipoic acid 600 mg capsule 600 mg PO BEDTIME tamsulosin [Flomax] 0.4 MG capsule,extended release 24hr 0.8 mg PO QPM Qty: 0 CoQ-10 400 mg PO QPM Qty: 0 ascorbic acid (vitamin C) 500 MG tablet 500 mg PO DAILY Qty: 0 [VITAMIN K2] 100 mcg PO QPM Qty: 0 Patient Comments: vitamin K2 MK7 c MenaQ7 omeprazole 20 mg capsule,delayed release(DR/EC) 20 mg PO DAILY Qty: 90 3RF Rx Instructions: Take 1 cap by mouth daily nitroglycerin 0.4 mg tablet, sublingual 0.4 mg SL Q5-15M PRN (Reason: Chest Pain) Qty: 20 11RF venlafaxine 25 mg tablet See Rx Instructions .ROUTE .COMPLEX Qty: 90 3RF Dose Instruction: Take 1/2 tablet by mouth at bedtime daily for depression, may increase as tolerated to 1 tablet in 2 weeks. Rx Instructions: Take 1 tablet by mouth at bedtime daily for depression. gabapentin 300 mg capsule 900 mg PO BID Qty: 360 2RF Rx Instructions: Managed by Dr Arndt/Neurologist Eliquis 5 mg tablet 5 mg PO BID Vitamin D3 1,500 unit See Rx Instructions PO DAILY Rx Instructions: 5000-1000IU daily orally daily; amlodipine 10 mg tablet 5 mg PO DAILY Patient Comments: takes 5 mg in the evening Rx Instructions: Report pressures to PCP multivitamin-ferrous gluconate 10 mg iron/5 mL liquid See Rx Instructions PO DAILY Rx Instructions: 10mL twice per day orally daily; trospium 60 mg capsule,extended release 24hr 60 mg PO DAILY Rx Instructions: must be taken on empty stomach at least 1 hour before a meal/food with water only mirabegron 25 mg tablet extended release 24 hr 25 mg PO DAILY Qty: 90 3RF Rx Instructions: Take 1 tab daily for urinary frequency. If this does not work, ok to increase to 50mg (2 tabs) daily. rosuvastatin [Crestor] 5 mg tablet 5 mg PO DAILY 30 Days Qty: 30 0RF (DME) [facility] AirSense Auto See Rx Instructions .Route .MEDSUPPLY Rx Instructions: CPAP Min: 6 Max: 16 DME: [facility]: 02/09/21 Referrals: Marbella Duenas ARNP [Primary Care Provider] - Stand Alone Forms: Patient Portal/API
[2023-05-29 19:22] LABS: Influenza A - CEPHEID Flu A NEGATIVE (NEGATIVE); Influenza B - CEPHEID Flu B NEGATIVE (NEGATIVE); Respiratory Syncytial Virus Negative (Negative)
--- NOTE | 2023-05-29 19:30 | DI.RAD.S_ITS ---
PROCEDURE: XR CHEST 2V INDICATIONS: cough, fever TECHNIQUE: 2 views of the chest were acquired. COMPARISON: [facility], CR, XR CHEST 2V, 05/10/2023, 10:08. [facility], CR, XR CHEST 2V, 07/23/2022, 14:28. FINDINGS: Surgical changes and devices: None. Lungs and pleura: Low lung volumes. Mildly prominent interstitium. This is similar to prior. Mediastinum: Mild cardiomegaly Bones and chest wall: Degenerative changes. IMPRESSION: Low lung volumes. No dense consolidation. No pleural effusions. Mildly prominent interstitium could be an artifact of low lung volumes versus atypical infection or edema. Consider future imaging surveillance to assess for resolution. Mild cardiomegaly. Dictated by: Mak Lopez M.D. on 05/29/2023 at 20:36 Approved by: Mak Lopez M.D. on 05/29/2023 at 20:37
[2023-05-29 19:31] LABS: COVID-19 CEPHEID 4-PLEX PCR Negative (Negative)
[2023-05-29 21:22] LABS: Add Manual Diff / Slide Review NO; Basophils Absolute Auto 0 /uL (0-100); Basophils Percent Auto 0.1 % (0-2); Eosinophils Absolute Auto 0 /uL (0-450); Eosinophils Percent Auto 0.1 % (2-4); Hematocrit 39.1 % (41-53); Hemoglobin 13.2 g/dL (13.5-17.5); Lymphocytes Absolute Auto 400 /uL (1100-4500); Lymphocytes Percent Auto 4.7 % (25-40); Mean Corpuscular HGB Conc 33.9 % (30-36); Mean Corpuscular Hemoglobin 32.3 PG (26-34); Mean Corpuscular Volume 95.3 fL (80-100); Monocytes Absolute Auto 600 /uL (0-900); Monocytes Percent Auto 6.7 % (3-14); Neutrophils Absolute Auto 8200 /uL (1500-7000); Neutrophils Percent Auto 88.4 % (50-75); Platelet Count 136 X10^3/uL (150-400); Red Cell Distribution Width 13.9 % (11.6-14.8); White Blood Cell Count 9.3 X10^3/uL (4.5-11.0)
[2023-05-29 21:36] LABS: Lactate (Lactic Acid) 1.7 mmol/L (0.7-2.1)
[2023-05-29 21:37] LABS: Alanine Aminotransferase 20 IU/L (<50); Albumin 3.8 g/dL (3.5-5.0); Albumin Globulin Ratio 1.1 (1.0-2.8); Alkaline Phosphatase 52 U/L (38-126); Aspartate Aminotransferase 27 IU/L (17-59); BUN Creatinine Ratio 23.5 (6-22); Blood Urea Nitrogen 24 mg/dL (9-20); Calcium 8.6 mg/dL (8.4-10.2); Carbon Dioxide 22 mmol/L (22-32); Chloride 101 mmol/L (98-107); Estimated Glomerular Filt Rate > 60 mL/min (>60); Globulin 3.4 g/dL (1.7-4.1); Glucose 130 mg/dL (80-110); Magnesium 1.8 mg/dL (1.6-2.3); Potassium 4.2 mmol/L (3.4-5.1); Sodium 133 mmol/L (137-145); Total Protein 7.2 g/dL (6.3-8.2)
[2023-05-29 21:38] LABS: Creatine Kinase 145 U/L (55-170)
[2023-05-29 21:48] LABS: NT-proBNP (BNP-Adult 18+) 1940 pg/mL (<450); Troponin I 0.027 ng/mL (0.01-0.034)
[2023-05-29 22:07] LABS: Procalcitonin 0.09 ng/mL (<0.5)
[2023-05-29 22:34] LABS: C-Reactive Protein Quant 3.7 mg/dL (<1.0); HEMOLYSIS < 15 (0-50)
== END 2023-05-29 22:48 | disposition home or self-care (01) ==
PROVIDERS: Emergency Provider Emergency Medicine; Family Provider Student in an Organized Health Care Education/Training Program; PCP Nurse Practitioner
DX: J06.9 Acute upper respiratory infection, unspecified (principal); J81.1 Chronic pulmonary edema; Z20.822 Contact with and (suspected) exposure to COVID-19; Z79.01 Long term (current) use of anticoagulants; Z79.899 Other long term (current) drug therapy
CPT/HCPCS: 0241U; 36415; 71046; 80053; 82550; 83605; 83735; 83880; 84145; 84484; 85025; 86140; 87040; 99283; 99284

== ENCOUNTER → 2023-06-20 09:08 | Outpatient (CLI) | payer MEDICARE, OTHER, SELFPAY ==
[2022-07-31 15:20] VITALS: BMI 30.9
--- NOTE | 2023-06-20 | DI.RAD.S_ITS ---
PROCEDURE: XR CHEST 2V INDICATIONS: [place]TER[place] TECHNIQUE: 2 views of the chest were acquired. COMPARISON: [facility], CR, XR CHEST 2V, 05/29/2023, 19:45. [facility], CR, XR CHEST 2V, 05/10/2023, 10:08. FINDINGS: Surgical changes and devices: None. Lungs and pleura: No suspicious focal airspace opacity identified. No pleural effusions or pneumothorax. Mediastinum: Cardiac silhouette is enlarged as before. Bones and chest wall: No suspicious bony abnormalities. Soft tissues appear unremarkable. IMPRESSION: Cardiac silhouette is enlarged without definite evidence of pulmonary vascular congestion. Dictated by: Domenic Muniz M.D. on 06/20/2023 at 18:17 Approved by: Domenic Muniz M.D. on 06/20/2023 at 18:18
[2023-06-20 10:35] LABS: Add Manual Diff / Slide Review NO; Basophils Absolute Auto 0 /uL (0-100); Basophils Percent Auto 0.4 % (0-2); Eosinophils Absolute Auto 100 /uL (0-450); Eosinophils Percent Auto 1.6 % (2-4); Hematocrit 36.3 % (41-53); Hemoglobin 12.4 g/dL (13.5-17.5); Lymphocytes Absolute Auto 700 /uL (1100-4500); Lymphocytes Percent Auto 14.7 % (25-40); Mean Corpuscular Hemoglobin 32.1 PG (26-34); Mean Corpuscular Volume 94.4 fL (80-100); Monocytes Absolute Auto 500 /uL (0-900); Monocytes Percent Auto 10.6 % (3-14); Neutrophils Absolute Auto 3500 /uL (1500-7000); Neutrophils Percent Auto 72.7 % (50-75); Platelet Count 155 X10^3/uL (150-400); Red Blood Cell Count 3.85 X10^6/uL (4.5-5.9); Red Cell Distribution Width 13.6 % (11.6-14.8); White Blood Cell Count 4.9 X10^3/uL (4.5-11.0)
[2023-06-20 10:43] LABS: BUN Creatinine Ratio 32.7 (6-22); Blood Urea Nitrogen 32 mg/dL (9-20); Carbon Dioxide 22 mmol/L (22-32); Chloride 106 mmol/L (98-107); Estimated Glomerular Filt Rate > 60 mL/min (>60); Glucose 122 mg/dL (80-110); HEMOLYSIS < 15 (0-50); Potassium 4.8 mmol/L (3.4-5.1); Sodium 135 mmol/L (137-145)
[2023-06-20 10:50] LABS: NT-proBNP (BNP-Adult 18+) 870 pg/mL (<450)
== END ==
PROVIDERS: Family Provider Student in an Organized Health Care Education/Training Program; PCP Nurse Practitioner; Referring Provider Internal Medicine Cardiovascular Disease; Visit Provider Internal Medicine Cardiovascular Disease
DX: R06.09 Other forms of dyspnea (principal); I50.22 Chronic systolic (congestive) heart failure; I42.9 Cardiomyopathy, unspecified
CPT/HCPCS: 36415; 71046; 80048; 83880; 85025

== ENCOUNTER → 2023-07-06 10:31 | Outpatient (CLI) | payer MEDICARE, OTHER, SELFPAY ==
[2022-07-31 15:20] VITALS: BMI 30.9
[2023-07-06 11:22] LABS: Hematocrit 36.2 % (41-53); Hemoglobin 12.4 g/dL (13.5-17.5); Mean Corpuscular HGB Conc 34.2 % (30-36); Mean Corpuscular Hemoglobin 32.1 PG (26-34); Mean Corpuscular Volume 93.7 fL (80-100); Platelet Count 170 X10^3/uL (150-400); Red Blood Cell Count 3.87 X10^6/uL (4.5-5.9); Red Cell Distribution Width 13.7 % (11.6-14.8); White Blood Cell Count 5.6 X10^3/uL (4.5-11.0)
[2023-07-06 11:34] LABS: BUN Creatinine Ratio 24.8 (6-22); Blood Urea Nitrogen 30 mg/dL (9-20); Calcium 9.4 mg/dL (8.4-10.2); Carbon Dioxide 25 mmol/L (22-32); Chloride 103 mmol/L (98-107); Estimated Glomerular Filt Rate 58 mL/min (>60); Glucose 120 mg/dL (80-110); HEMOLYSIS < 15 (0-50); Sodium 136 mmol/L (137-145)
[2023-07-06 11:42] LABS: NT-proBNP (BNP-Adult 18+) 640 pg/mL (<450)
== END ==
PROVIDERS: Family Provider Student in an Organized Health Care Education/Training Program; PCP Nurse Practitioner; Referring Provider Internal Medicine Cardiovascular Disease; Visit Provider Internal Medicine Cardiovascular Disease
DX: R06.09 Other forms of dyspnea (principal)
CPT/HCPCS: 36415; 80048; 83880; 85027

== ENCOUNTER 2023-08-17 10:56 | Emergency (ER) | payer MEDICARE, OTHER, SELFPAY ==
[2022-07-31 15:20] VITALS: BMI 30.9
[2023-08-17] VITALS (14 sets, daily range): BP systolic 109–128; BP diastolic 54–78; PULSE 67–97; RESP 13–24; TEMP 36.5; O2SAT 96–98; BMI 31.6
--- NOTE | 2023-08-17 11:03 | DI.RAD.S_ITS ---
PROCEDURE: XR CHEST 1V INDICATIONS: Shortness of breath TECHNIQUE: One view of the chest was acquired. COMPARISON: [facility], CR, XR CHEST 2V, 06/20/2023, 9:38. FINDINGS: Surgical changes and devices: None. Lungs and pleura: Low lung volume with interstitial prominence which may represent bronchovascular crowding versus pulmonary vascular congestion. No focal airspace consolidation. Query small left pleural effusion. No pneumothorax. Mediastinum: Mediastinal contours appear normal. Heart size is enlarged, as before. Bones and chest wall: No suspicious bony lesions. Overlying soft tissues appear unremarkable. IMPRESSION: Stable cardiomegaly. Low lung volumes with interstitial prominence which may represent bronchovascular crowding versus mild pulmonary vascular congestion. Query small left pleural effusion. Approved by: Susana Espinosa M.D. on 08/17/2023 at 11:54
[2023-08-17 11:42] LABS: INR 1.4 (0.9-1.3)
[2023-08-17 11:47] LABS: Alanine Aminotransferase 20 IU/L (<50); Albumin 3.9 g/dL (3.5-5.0); Albumin Globulin Ratio 1.1 (1.0-2.8); Alkaline Phosphatase 55 U/L (38-126); Aspartate Aminotransferase 23 IU/L (17-59); BUN Creatinine Ratio 30.5 (6-22); Bilirubin Total 0.7 mg/dL (0.2-1.3); Blood Urea Nitrogen 29 mg/dL (9-20); Carbon Dioxide 23 mmol/L (22-32); Chloride 104 mmol/L (98-107); Estimated Glomerular Filt Rate > 60 mL/min (>60); Globulin 3.5 g/dL (1.7-4.1); Glucose 127 mg/dL (80-110); HEMOLYSIS 18 (0-50); Lactate (Lactic Acid) 1.3 mmol/L (0.7-2.1); Potassium 5.1 mmol/L (3.4-5.1); Sodium 134 mmol/L (137-145); Total Protein 7.4 g/dL (6.3-8.2)
[2023-08-17 11:50] LABS: Add Manual Diff / Slide Review NO; Basophils Absolute Auto 0 /uL (0-100); Basophils Percent Auto 0.3 % (0-2); Eosinophils Absolute Auto 100 /uL (0-450); Eosinophils Percent Auto 0.9 % (2-4); Hemoglobin 13.3 g/dL (13.5-17.5); Lymphocytes Absolute Auto 400 /uL (1100-4500); Lymphocytes Percent Auto 5.6 % (25-40); Mean Corpuscular HGB Conc 34.1 % (30-36); Mean Corpuscular Hemoglobin 32.9 PG (26-34); Mean Corpuscular Volume 96.6 fL (80-100); Monocytes Absolute Auto 600 /uL (0-900); Monocytes Percent Auto 7.6 % (3-14); Neutrophils Absolute Auto 6600 /uL (1500-7000); Neutrophils Percent Auto 85.6 % (50-75); Platelet Count 164 X10^3/uL (150-400); Red Blood Cell Count 4.04 X10^6/uL (4.5-5.9); Red Cell Distribution Width 14.7 % (11.6-14.8); White Blood Cell Count 7.8 X10^3/uL (4.5-11.0)
[2023-08-17 11:58] LABS: NT-proBNP (BNP-Adult 18+) 592 pg/mL (<450); Troponin I < 0.012 ng/mL (0.01-0.034)
--- NOTE | 2023-08-17 13:10 | ED_ITS ---
HPI - Chest Pain General Chief Complaint: Shortness of Breath/Dyspnea Stated Complaint: exteme weakness,fatigue, chest px Time Seen by Provider: 08/17/23 13:01 Source: patient Mode of arrival: Wheelchair Limitations: no limitations Limitations: no limitations History of Present Illness HPI narrative: 87-year-old male with history of atrial fibrillation on Eliquis, COPD, CHF, diabetes, prior prostate cancer and chronic peripheral neuropathy with complaint of increasing fatigue, decreased energy and shortness of breath particularly with exertion. Patient states when he seated he feels okay but when he tried to go to a meeting and then leave felt like all of his energy was zapped. He denies chest pain or pressure currently. He states he is had some occasional tightness. He states he is felt short of breath particularly with exertion. He denies fevers, cold cough or congestive symptoms. Denies new swelling in his extremities. He denies any orthopnea. Denies any nausea or vomiting. No diarrhea constipation, no urinary symptoms. He states symptoms have been building for about a week and a half to 2 weeks but has felt some symptoms for the past month. He is on Eliquis daily, has prior cardiac stents replaced proximally 2008. Patient states no known drug allergies. No tobacco, 1 alcoholic drink weekly. No recreational drugs. Primary care is Marbella Duenas, Cardiology is Dr. Stephens, Urology with Chantel Poe, Neurology with Dr. Arndt for peripheral neuropathy. Related Data Home Medications Medication Instructions Recorded Confirmed CoQ-10 400 mg PO QPM ##0 11/21/16 03/21/23 ascorbic acid (vitamin C) 500 mg 500 mg PO DAILY ##0 11/21/16 03/21/23 tablet tamsulosin 0.4 mg capsule (Flomax) 0.8 mg PO QPM ##0 11/21/16 03/21/23 [VITAMIN K2] 100 mcg PO QPM ##0 03/06/17 03/21/23 alpha lipoic acid 600 mg capsule 600 mg PO BEDTIME 12/11/18 03/21/23 lisinopril 20 mg tablet 20 mg PO QPM 12/11/18 03/21/23 apixaban 5 mg tablet (Eliquis) 5 mg PO BID 10/26/20 03/21/23 amlodipine 10 mg tablet 5 mg PO DAILY 02/20/22 03/21/23 ResMed AirSense Auto 03/27/22 03/21/23 Vitamin D3 See Rx Instructions PO DAILY 06/13/22 03/21/23 multivitamin-ferrous gluconate 10 See Rx Instructions PO DAILY 10/03/22 03/21/23 mg iron/5 mL oral liquid trospium 60 mg capsule,extended 60 mg PO DAILY 11/20/22 03/21/23 release 24 hr Previous Rx's Medication Instructions Recorded rosuvastatin 5 mg tablet (Crestor) 5 mg PO DAILY 30 days #30 tabs 09/04/20 omeprazole 20 mg capsule,delayed 20 mg PO DAILY #90 caps 01/19/23 release nitroglycerin 0.4 mg sublingual 0.4 mg sublingual Q5-15M PRN Chest 03/02/23 tablet Pain #20 tabs mirabegron 25 mg tablet,extended 25 mg PO DAILY #90 tabs 03/21/23 release 24 hr gabapentin 300 mg capsule 900 mg (3 x 300 mg) PO BID #360 05/01/23 caps furosemide 40 mg tablet (Lasix) 40 mg PO DAILY #3 tabs 05/29/23 venlafaxine 50 mg tablet 50 mg PO DAILY #90 tabs 08/14/23 furosemide 20 mg tablet (Lasix) 40 mg (2 x 20 mg) PO DAILY #6 tabs 08/17/23 Allergies Allergy/AdvReac Type Severity Reaction Status Date / Time No Known Drug Allergies Allergy Verified 08/17/23 11:00 Review of Systems Review of Systems ROS Unobtainable: All systems reviewed & are unremarkable except as noted in HPI and below Patient History Medical History Gastric reflux Protein-calorie malnutrition, mild Anemia Chronic anticoagulation Acute GI bleeding Headache Hx of myocardial infarction (Unknown) Hypertension (Unknown) Lumbar disc disease (2012) Polio (1949) Chickenpox Measles Hearing loss (2014) Coronary artery disease (2008) Prostate cancer (2008) Peripheral polyneuropathy (03/06/17) Left foot drop (03/06/17) Vitamin D deficiency (11/21/16) Gastroesophageal reflux disease (06/13/16) Statin intolerance (02/08/16) Spinal stenosis of lumbar region (02/08/16) Pure hypercholesterolemia (02/08/16) History of malignant neoplasm of prostate (04/08/15) Essential hypertension (02/08/16) Coronary artery disease involving [place] coronary artery of [place] heart without angina pectoris (02/08/16) Balance problems (02/08/16) Surgical History History of prostate surgery (2009) Hx of hernia repair (Unknown) Hx of heart surgery (2008) Status post laminectomy Family History Father No problems noted. Mother Cancer Grandfather No problems noted. Grandmother No problems noted. Grandfather No problems noted. Grandmother Cancer Family/Other Stroke Heart attack Coronary artery disease Congestive heart failure Social History marital status: household members: none Smoking Status: Former smoker second hand exposure: No alcohol intake: current substance use type: does not use Smoking Status: Former smoker alcohol intake frequency: holidays/special occasions only Substance Use Type: does not use Exam Narrative Exam Narrative: GENERAL: Alert and oriented x three, male in mild distress. HEENT: Head normocephalic, atraumatic, EOMI, pupils reactive, face symmetric, moist mucous membranes NECK: Supple, full range of motion CARDIOVASCULAR: Regular rate and rhythm without murmurs, rubs or gallops. No reproducible chest pain. RESPIRATORY: Breath sounds equal bilaterally, no wheezes rales or rhonchi. No tachypnea or accessory muscle use. Patient's speaks in full sentences. ABDOMEN: Soft, nontender. Normoactive bowel sounds all 4 quadrants. No guarding or rebound, rigidity, no mass : No CVA tenderness EXTREMITIES: Normal range of motion, no clubbing or edema bilateral lower extremities. Neurovascularly intact NEUROLOGICAL: Cranial nerves II through XII grossly intact. Moving all extremities SKIN: Warm, dry, no petechiae, no rashes or lesions. Initial Vital Signs Initial Vital Signs: Vital Signs Temperature 97.7 F 08/17/23 11:00 Pulse Rate 73 08/17/23 11:00 Respiratory Rate 18 08/17/23 11:00 Blood Pressure 114/54 L 08/17/23 11:00 Pulse Oximetry 97 08/17/23 11:00 Oxygen Delivery Method Room Air 08/17/23 11:00 Course Orders Ordered: ED Orders 08/17/23 11:03 XR chest 1V Stat EKG-12 Lead Stat Measure peak expiratory flow ONCE RT Consult Eval and Treat NOW 08/17/23 11:20 Complete Blood Count AUTO DIFF Stat Comprehensive Metabolic Panel Stat Lactate (Lactic Acid) Stat NT-proBNP (BNP-Adult 18+) Stat Prothrombin Time INR Stat Troponin I Stat 08/17/23 12:55 EKG-12 Lead Stat 08/17/23 13:23 Covid-19 + FLU A/B + RSV - PCR Stat 08/17/23 13:25 Trop I [Troponin I] Stat 08/17/23 13:34 EKG-12 Lead Stat Discontinued Medications Furosemide (Furosemide 40 Mg/4 Ml Vial) 40 mg IV NOW ONE Stop: 08/17/23 13:21 Last Admin: 08/17/23 13:28 Dose: 40 mg Documented By: AUBREY Vital Signs Vital signs: Vital Signs - 8 hr 08/17/23 11:00 08/17/23 11:09 08/17/23 11:10 Temperature 97.7 F Pulse Rate 73 89 78 Respiratory Rate 18 Blood Pressure 114/54 L Pulse Oximetry 97 97 97 Oxygen Delivery Method Room Air 08/17/23 11:10 08/17/23 11:30 08/17/23 11:30 Temperature Pulse Rate 69 Respiratory Rate 16 Blood Pressure 118/78 120/55 L Pulse Oximetry 97 Oxygen Delivery Method 08/17/23 12:00 08/17/23 12:00 08/17/23 12:30 Temperature Pulse Rate 69 Respiratory Rate 15 Blood Pressure 109/58 L 120/58 L Pulse Oximetry 96 Oxygen Delivery Method 08/17/23 12:30 08/17/23 13:00 08/17/23 13:00 Temperature Pulse Rate 67 73 Respiratory Rate 14 22 Blood Pressure 119/56 L Pulse Oximetry 97 97 Oxygen Delivery Method 08/17/23 13:30 08/17/23 13:30 08/17/23 14:00 Temperature Pulse Rate 69 71 Respiratory Rate 18 13 Blood Pressure 117/57 L Pulse Oximetry 97 97 Oxygen Delivery Method 08/17/23 14:00 08/17/23 14:37 08/17/23 14:38 Temperature Pulse Rate 97 H Respiratory Rate Blood Pressure 128/60 111/55 L Pulse Oximetry 97 Oxygen Delivery Method 08/17/23 14:38 08/17/23 14:41 08/17/23 15:00 Temperature Pulse Rate 91 H 95 H Respiratory Rate 22 Blood Pressure 110/59 L Pulse Oximetry 98 98 Oxygen Delivery Method 08/17/23 15:00 08/17/23 15:24 08/17/23 15:24 Temperature Pulse Rate 78 76 Respiratory Rate 15 24 Blood Pressure 119/58 L Pulse Oximetry 98 96 Oxygen Delivery Method MDM - Chest Pain Lab Data 08/17/23 11:20 08/17/23 11:20 Labs: Lab Results 08/17/23 08/17/23 08/17/23 Range/Units 11:20 13:23 13:25 WBC 7.8 (4.5-11.0) X10^3/uL RBC 4.04 L (4.5-5.9) X10^6/uL Hgb 13.3 L (13.5-17.5) g/dL Hct 39.0 L (41-53) % MCV 96.6 (80-100) fL MCH 32.9 (26-34) PG MCHC 34.1 (30-36) % RDW 14.7 (11.6-14.8) % Plt Count 164 (150-400) X10^3/uL Neut % (Auto) 85.6 H (50-75) % Lymph % (Auto) 5.6 L (25-40) % [place] % (Auto) 7.6 (3-14) % Eos % (Auto) 0.9 L (2-4) % Baso % (Auto) 0.3 (0-2) % Neut # (Auto) 6600 (6421-0779) /uL Lymph # (Auto) 400 L (3965-5961) /uL [place] # (Auto) 600 (0-900) /uL Eos # (Auto) 100 (0-450) /uL Baso # (Auto) 0 (0-100) /uL PT 16.0 H (9.4-12.5) SECONDS INR 1.4 H (0.9-1.3) Sodium 134 L (137-145) mmol/L Potassium 5.1 (3.4-5.1) mmol/L Chloride 104 (98-107) mmol/L Carbon Dioxide 23 (22-32) mmol/L BUN 29 H (9-20) mg/dL Creatinine 0.95 (0.66-1.25) mg/dL Estimated GFR > 60 (>60) mL/min BUN/Creatinine Ratio 30.5 H (6-22) Glucose 127 H (80-110) mg/dL Lactate 1.3 (0.7-2.1) mmol/L Calcium 9.0 (8.4-10.2) mg/dL Total Bilirubin 0.7 (0.2-1.3) mg/dL AST 23 (17-59) IU/L ALT 20 (<50) IU/L Alkaline Phosphatase 55 (38-126) U/L Troponin I < 0.012 < 0.012 (0.01-0.034) ng/mL NT-Pro-B Natriuret Pep 592 H (<450) pg/mL Total Protein 7.4 (6.3-8.2) g/dL Albumin 3.9 (3.5-5.0) g/dL Globulin 3.5 (1.7-4.1) g/dL Albumin/Globulin Ratio 1.1 (1.0-2.8) SARS-CoV-2 (PCR) Negative (Negative) Influenza A (RT-PCR) Flu a negative (NEGATIVE) Influenza B (RT-PCR) Flu b negative (NEGATIVE) RSV (PCR) Negative (Negative) Imaging Data Chest x-ray: Radiologist's Impression: Kenneth Ward Jr??87??M??1935 ? Allergy/Adv: No Known Drug Allergies (More??) Close Chest X-Ray (Signed) Susana Espinosa - 08/17/23 Chest X-Ray (Signed) Domenic Muniz - 06/20/23 Chest X-Ray (Signed) Mak Lopez - 05/29/23 Chest X-Ray (Signed) Benny Hernadez - 05/10/23 Vascular Ultrasound (Signed) Liam Ulloa - 03/21/23 Abdomen/Pelvis CT (Signed) Mak Lopez - 09/20/22 Chest X-Ray (Signed) Liam Ulloa - 07/23/22 Radiology Report (Cancelled) Regina Valenzuela - 03/31/22 Myocardial Perfusion Scan Nuc Med (Signed) Marie Valenzuelaayesha - 03/31/22 Telemetry Strips 03/30/22 Echocardiogram Ultrasound (Signed) IdaniaZachery rodriguezJorje - 03/30/22 Chest X-Ray (Signed) Liam Ulloa - 03/29/22 Lumbar Spine MRI (Signed) Chanda Raman - 07/29/21 Chest X-Ray (Signed) Willie Freed - 03/16/21 Telemetry Strips 03/16/21 Telemetry Strips 01/26/21 Telemetry Strips 01/26/21 Chest X-Ray (Signed) Wayne Halln - 01/26/21 Myocardial Perfusion Scan Nuc Med (Signed) Kat,Bhrigu - 01/17/21 Chest CTA (Signed) Jerrell Wynne - 10/20/20 Chest X-Ray (Signed) Gene Wynneeeblayne - 10/20/20 Echocardiogram Ultrasound (Signed) Rakesh Kang - 09/03/20 Brain MRI (Signed) Harvey Shukla - 09/03/20 Telemetry Strips 09/03/[address] (Signed) Srikanth Chakraborty - 09/03/20 Chest X-Ray (Signed) Harvey Shukla - 07/30/[address] (Signed) Watson Dangelo - 03/11/[address] (Signed) Watson Dangelo - 09/17/19 Abdomen/Pelvis CT (Signed) Watson Dangelo - 04/09/19 Echocardiogram Ultrasound (Signed) Juana Caruso - 02/07/19 Myocardial Perfusion Scan Nuc Med (Signed) Laury Stephensu - 02/03/19 Abdomen/Pelvis CTA (Signed) Watson Dangelo - 12/23/18 Chest X-Ray (Signed) Watson Dangelo - 12/23/18 Telemetry Strips 12/18/18 Telemetry Strips 12/18/18 Telemetry Strips 12/18/18 Chest X-Ray (Signed) Joanne Craig - 12/18/18 Chest X-Ray (Signed) Eddie Waters - 04/14/18 Modified Barium Swallow (Signed) Harvey Shukla - 03/08/[address] [address] XRay Report Signed Patient: Kenneth Ward Jr MR#: [id number] : 1935 Acct:[id number] Age/Sex: 87 / M Date of Service: 08/17/23 Loc: ED Accession Number: [id number] Procedure: XR chest 1V Ordering Provider: Jaelyn Molina D.O. PROCEDURE: XR CHEST 1V INDICATIONS: Shortness of breath TECHNIQUE: One view of the chest was acquired. COMPARISON: [facility], CR, XR CHEST 2V, 06/20/2023, 9:38. FINDINGS: Surgical changes and devices: None. Lungs and pleura: Low lung volume with interstitial prominence which may represent bronchovascular crowding versus pulmonary vascular congestion. No focal airspace consolidation. Query small left pleural effusion. No pneumothorax. Mediastinum: Mediastinal contours appear normal. Heart size is enlarged, as before. Bones and chest wall: No suspicious bony lesions. Overlying soft tissues appear unremarkable. IMPRESSION: Stable cardiomegaly. Low lung volumes with interstitial prominence which may represent bronchovascular crowding versus mild pulmonary vascular congestion. Query small left pleural effusion. Approved by: Susana Espinosa M.D. on 08/17/2023 at 11:54 ECG Data Attestation: I personally reviewed and interpreted this ECG as follows: Prior ECG tracings: not available for review Interpretation: AFib rate of 70 QRS of 94 QTC of 421. No acute ST changes appreciated some nonspecific change. Impression possible artifact in lead V6. EKG 2. AFib rate of 71, QRS 84 QTC 452. Patient does have elevation in 1 beat of lead 3 but not both beats. Nonspecific change. MDM Narrative Medical decision making narrative: 87-year-old male who comes in with complaint of fatigue, decreased energy he denies chest pain or shortness of breath initially but after further discussion is huffing and puffing when he exerts himself. He states occasional tightness. CBC shows no acute change, CMP shows normal renal function electrolytes, LFTs are negative initial troponins negative with a BNP of 592 patient has priors up to 1940 500 range appears on the low end for patient. INR 1.4. Chest x-ray shows stable cardiomegaly, with interstitial prominence may represent bronchovascular crowding versus pulmonary vascular congestion. We are very small left pleural effusion. EKG shows nonspecific change. Patient had repeat troponin is negative. COVID/influenza/RSV swab is negative. Patient was given Lasix 40 mg. Ambulatory pulse oximetry shows O2 sat 90 with a pulse of 95. Patient and family at bedside states he tolerated well. Has diuresed prior to ambulation, patient states a lot of output, did not make the urinal so exact amount unknown. Discussed with patient he feels improved. Discussed observation and spoke with Dr. Miles. He notes they can get echo but can not perform stress testing tomorrow. Would be happy to keep the patient for observation. After discussion with patient and family they prefer to return home. Patient has only been taking 20 mg Lasix PRN and has not been taking it recently so will have him take 40 mg daily for the next 3 days but also reach out to his cardiology team for follow-up. Discussed there is potential for cardiac component. Patient continues to for observation. Discharge Plan Departure Patient Disposition: Home Clinical Impression: CHF (congestive heart failure) Instructions: DI for Heart Failure Activity Restrictions/Additional Instructions: Your labs and workup overall today do not show major changes but I do recommend follow up with your cardiology team. Please call to set up follow-up. I would recommend talking with your team about whether to have repeat stress testing or further workup. I do recommend increasing your Lasix to 40 mg daily. Take 2 (20mg) tablets once daily x3 days. Prescription printed. Please return for new or worsening chest pain, shortness of breath, lightheadedness or passing out or other new or concerning changes. Prescriptions: New furosemide [Lasix] 20 mg tablet 40 mg PO DAILY Qty: 6 0RF No Action lisinopril 20 mg tablet 20 mg PO QPM alpha lipoic acid 600 mg capsule 600 mg PO BEDTIME tamsulosin [Flomax] 0.4 MG capsule,extended release 24hr 0.8 mg PO QPM Qty: 0 CoQ-10 400 mg PO QPM Qty: 0 ascorbic acid (vitamin C) 500 MG tablet 500 mg PO DAILY Qty: 0 [VITAMIN K2] 100 mcg PO QPM Qty: 0 Patient Comments: vitamin K2 MK7 c MenaQ7 omeprazole 20 mg capsule,delayed release(DR/EC) 20 mg PO DAILY Qty: 90 3RF Rx Instructions: Take 1 cap by mouth daily nitroglycerin 0.4 mg tablet, sublingual 0.4 mg SL Q5-15M PRN (Reason: Chest Pain) Qty: 20 11RF gabapentin 300 mg capsule 900 mg PO BID Qty: 360 2RF Rx Instructions: Managed by Dr Arndt/Neurologist venlafaxine 50 mg tablet 50 mg PO DAILY Qty: 90 3RF Rx Instructions: Take 1 tab daily for depression Eliquis 5 mg tablet 5 mg PO BID Vitamin D3 1,500 unit See Rx Instructions PO DAILY Rx Instructions: 5000-1000IU daily orally daily; amlodipine 10 mg tablet 5 mg PO DAILY Patient Comments: takes 5 mg in the evening Rx Instructions: Report pressures to PCP multivitamin-ferrous gluconate 10 mg iron/5 mL liquid See Rx Instructions PO DAILY Rx Instructions: 10mL twice per day orally daily; trospium 60 mg capsule,extended release 24hr 60 mg PO DAILY Rx Instructions: must be taken on empty stomach at least 1 hour before a meal/food with water only mirabegron 25 mg tablet extended release 24 hr 25 mg PO DAILY Qty: 90 3RF Rx Instructions: Take 1 tab daily for urinary frequency. If this does not work, ok to increase to 50mg (2 tabs) daily. rosuvastatin [Crestor] 5 mg tablet 5 mg PO DAILY 30 Days Qty: 30 0RF furosemide [Lasix] 40 mg tablet 40 mg PO DAILY Qty: 3 0RF (DME) ResMed AirSense Auto See Rx Instructions .Route .MEDSUPPLY Rx Instructions: CPAP Min: 6 Max: 16 DME: ROTECH ABAD: 02/09/21 Referrals: Marbella Duenas ARNP [Primary Care Provider] - Stand Alone Forms: Patient Portal/API
[2023-08-17] MEDS: FUROSEMIDE 40 MG/4 ML VIAL IV (13:28)
[2023-08-17 13:53] LABS: Troponin I < 0.012 ng/mL (0.01-0.034)
[2023-08-17 14:12] LABS: Influenza A - CEPHEID Flu A NEGATIVE (NEGATIVE); Influenza B - CEPHEID Flu B NEGATIVE (NEGATIVE); Respiratory Syncytial Virus Negative (Negative)
[2023-08-17 14:25] LABS: COVID-19 CEPHEID 4-PLEX PCR Negative (Negative)
== END 2023-08-17 15:35 | disposition home or self-care (01) ==
PROVIDERS: Emergency Provider Emergency Medicine; Family Provider Student in an Organized Health Care Education/Training Program; PCP Nurse Practitioner
DX: I50.9 Heart failure, unspecified (principal); R06.02 Shortness of breath; Z79.01 Long term (current) use of anticoagulants; Z79.899 Other long term (current) drug therapy; Z20.822 Contact with and (suspected) exposure to COVID-19
CPT/HCPCS: 0241U; 36415; 71045; 80053; 83605; 83880; 84484; 85025; 85610; 93005; 93010; 96374; 99284; J1940

== ENCOUNTER → 2023-09-11 11:59 | Outpatient (CLI) | payer MEDICARE, OTHER, SELFPAY ==
[2022-07-31 15:20] VITALS: BMI 30.9
--- NOTE | 2023-09-11 12:02 | DI.CT.S_ITS ---
PROCEDURE: CT ANGIO HEAD AND NECK INDICATIONS: confusion TECHNIQUE: In this patient, noncontrast images were obtained through the head. After the administration of intravenous contrast, 1 mm thick sections acquired from the aortic arch through the [place]. 3-dimensional zkcpvne-ltvuvxjlj-rtwoqduzoj (MIP) and/or volume rendering reformats were acquired of the central intracranial vasculature and neck separately. For radiation dose reduction, the following was used: automated exposure control, adjustment of mA and/or kV according to patient size. COMPARISON: [facility], CT, CT STROKE, 09/03/2020, 13:23. [facility], MR, MR STROKE, 09/03/2020, 20:47. FINDINGS: Image quality: Mild streak artifact can be seen through the skull base. There is artifact associated with the metallic no to work. BRAIN: CSF spaces: Ventricles are normal in size and shape. Basal cisterns are patent. No extra-axial fluid collections. Brain: No significant abnormality of the brain can be seen. Skull and face: Calvarium and facial bones appear intact, without suspicious lesions. Orbits appear normal. Sinuses: Sinuses and mastoids are clear. HEAD CT ANGIOGRAPHY: Anterior circulation: Intracranial internal carotid arteries are normal in size and flow. The flow within the paired anterior cerebral arteries is normal and symmetric. The flow within the middle cerebral arteries is normal and symmetric. The anterior communicating artery is seen. No aneurysms are seen. Posterior circulation: Visualized portions of the vertebral arteries demonstrate normal caliber, and join to form a normal appearing basilar artery. Flow within the posterior cerebral arteries is normal and symmetric. No aneurysms are seen. NECK CT ANGIOGRAPHY: Carotid system: The great vessels demonstrate a conventional anatomy as they arise from the aortic arch. The origins of the common carotid arteries appear patent. The common carotid arteries demonstrate normal caliber and courses. The bifurcation regions demonstrate atherosclerotic irregularity and calcification. There is 80-90% narrowing seen involving the left internal carotid artery origin. There is 60% narrowing seen involving the right internal carotid artery origin. The more distal internal carotid arteries demonstrate normal course and caliber. Posterior circulation: There is 50% narrowing seen involving the origin of the left vertebral artery and 30% narrowing involving the origin of the right vertebral artery. The more superior extracranial portions of both vertebral arteries also demonstrate normal courses and calibers. They join to form a normal appearing basilar artery. Soft tissues: Visualized neck soft tissues demonstrate no suspicious abnormalities. Bones: No suspicious bony lesions. Visualized cervical spine appears normally aligned. At least moderate cervical spine degenerative change can be seen. IMPRESSION: No significant intracranial arterial abnormality is seen. Focal significant stenosis can be seen involving the origins of the internal carotid arteries, with 80-90% narrowing on the left and 60% narrowing on the right. There is 50% narrowing involving the origin of the left vertebral artery and 30% narrowing involving the origin of the right vertebral artery. Any quantitative measurements of stenosis were performed using NASCET criteria. Dictated by: Liam Ulloa M.D. on 09/11/2023 at 13:06 Approved by: Liam Ulloa M.D. on 09/11/2023 at 13:11
== END ==
PROVIDERS: Family Provider Student in an Organized Health Care Education/Training Program; PCP Nurse Practitioner; Referring Provider Nurse Practitioner; Visit Provider Nurse Practitioner
DX: I65.23 Occlusion and stenosis of bilateral carotid arteries (principal); I65.03 Occlusion and stenosis of bilateral vertebral arteries; R41.0 Disorientation, unspecified; R41.3 Other amnesia
CPT/HCPCS: 70496; 70498; Q9967

== ENCOUNTER → 2023-10-04 06:42 | Outpatient (CLI) | payer MEDICARE, OTHER, SELFPAY ==
[2022-07-31 15:20] VITALS: BMI 30.9
--- NOTE | 2023-10-04 06:46 | DI.ECHO.S_ITS ---
[facility]---------+ [facility] +---------+ : : [address] : : : : [id number] : : : : Phone: [phone]+ Echocardiogram Report + + :Name: ALEJO COWAN Study Date: 10/04/2023 Height: 67 in : :[facility] ReadingLocation: Weight: 190 lb : : Gender: Male BSA: 2.0 m2 : :: 1935 Age: 87 yrs BP: 119/58 mmHg: :Reason For Study: HEART FAILURE : :Ordering Physician: MADELAINE, : :ARJUN Performed By: Lyndon Acevedo : :Referring: ARJUN STEPHENS : + + Interpretation Summary 1) Mildly increased left ventricular thickness (concentric) with normal size and mildly to moderately reduced systolic function (EF 40-45%). 2) Grossly, normal right ventricular size with low normal function. 3) The left atrium is severely dilated. 4) There is mild to moderate mitral regurgitation. There is mild aortic regurgitation. 5) Compared to the Echo done 05/11/2023, no significant change. Procedure: A two-dimensional transthoracic echocardiogram with color flow and Doppler was performed. The study quality was technically adequate. Comparison is made with the echocardiogram of 05/11/23. The patient was in normal sinus rhythm during the exam. The heart rate ranged between 65-75 bpm during the study. Left Ventricle: The left ventricle is normal in size. Left ventricular wall thickness is mildly increased. The ejection fraction is estimated to be 40- 45%. There is mild to moderate global hypokinesis of the left ventricle. Diastolic parameters suggest a relaxation abnormality of the left ventricle, consistent with probable normal filling pressures. Right Ventricle: The right ventricle is grossly normal size. Right ventricular systolic function is at the lower limits of normal. Atria: The left atrium is severely dilated. The right atrium is normal in size. Mitral Valve: The mitral valve is normal in structure and function. There is no mitral valve stenosis. The mitral regurgitant jet is eccentrically directed. There is mild to moderate mitral regurgitation. Aortic Valve: The aortic valve is trileaflet. There is no aortic valve stenosis. There is mild aortic regurgitation. Tricuspid Valve: The tricuspid valve is normal in structure and function. There is no tricuspid stenosis. There is mild tricuspid regurgitation. The right ventricular systolic pressure is estimated to be at least 26 mmHg based on an estimated right atrial pressure of 3 mm Hg. Pulmonic Valve: The pulmonic valve leaflets are thin and pliable; valve motion is normal. There is no pulmonic valvular stenosis. There is mild pulmonic regurgitation. Great Vessels: The aortic root is normal size. The ascending aorta is at the upper limits of normal in size. The IVC is of normal diameter and collapses greater than 50% with a sniff. This suggests a low right atrial pressure of 3 mm Hg. Pericardium/ Pleura There is no pericardial effusion. There is no pleural effusion. MMode/2D Measurements & Calculations LVIDd: 4.0 cm LVOT diam: 2.3 cm LVIDs: 3.1 cm Ao root diam: 3.6 cm FS: 21.1 % asc Aorta Diam: 4.1 cm IVSd: 1.4 cm LVPWd: 1.2 cm LV mays. diameter/BSA (cm/m^2): 2.0 LV sys. diameter/BSA (cm/m^2): 1.6 LA A2 area: 25.9 cm2 RA long axis: 6.1 cm LA A4 area: 35.1 cm2 RA area: 21.4 cm2 LA length (vol): 7.7 cm RA vol: 63.9 ml LA vol: 100.1 ml RA : 32.3 ml/m2 LA vol index: 50.6 ml/m2 IVC diam: 1.5 cm RVD1 (basal): 3.4 cm RVD2 (mid): 2.5 cm TAPSE: 1.9 cm Doppler Measurements & Calculations Ao V2 max: 100.4 cm/sec LVOT Max Joaquin: 82.0 cm/sec Ao V2 mean: 76.3 cm/sec LV V1 max P.7 mmHg Ao max P.0 mmHg LV V1 VTI: 16.9 cm Ao mean P.5 mmHg LISSA(I,D): 3.5 cm2 Ao V2 VTI: 20.9 cm LISSA(V,D): 3.5 cm2 sev ratio: 0.81 LISSA indexed to BSA (cm^2/m^2): 1.7 MV E max joaquin: 108.7 cm/sec TR max joaquin: 240.5 cm/sec MV A max joaquin: 22.9 cm/sec TR max P.1 mmHg MV E/A: 4.7 PA V2 max: 87.8 cm/sec Med Peak E' Joaquin: 8.7 cm/sec PA V2 mean: 58.9 cm/sec E/E' med: 12.5 PA mean P.6 mmHg Lat Peak E' Joaquin: 9.6 cm/sec PA pr(Accel): 43.0 mmHg E/E' lat: 11.3 E/e' average: 11.9 MV dec time: 0.23 sec SV(LVOT): 72.1 ml Reading Physician:01:06 PM
[2023-10-04 08:41] LABS: Add Manual Diff / Slide Review NO; Basophils Absolute Auto 0 /uL (0-100); Basophils Percent Auto 0.4 % (0-2); Eosinophils Absolute Auto 100 /uL (0-450); Eosinophils Percent Auto 1.2 % (2-4); Hematocrit 40.2 % (41-53); Hemoglobin 13.7 g/dL (13.5-17.5); Lymphocytes Absolute Auto 800 /uL (1100-4500); Lymphocytes Percent Auto 12.9 % (25-40); Mean Corpuscular HGB Conc 33.9 % (30-36); Mean Corpuscular Hemoglobin 32.8 PG (26-34); Mean Corpuscular Volume 96.7 fL (80-100); Monocytes Absolute Auto 600 /uL (0-900); Monocytes Percent Auto 9.1 % (3-14); Neutrophils Absolute Auto 4800 /uL (1500-7000); Neutrophils Percent Auto 76.4 % (50-75); Platelet Count 161 X10^3/uL (150-400); Red Blood Cell Count 4.16 X10^6/uL (4.5-5.9); Red Cell Distribution Width 14.1 % (11.6-14.8); White Blood Cell Count 6.3 X10^3/uL (4.5-11.0)
[2023-10-04 08:59] LABS: Hemoglobin A1C% w Est Avg Glu 5.6 % (4.0-6.0)
[2023-10-04 09:12] LABS: HEMOLYSIS < 15 (0-50); Iron 88 ug/dL (49-181)
[2023-10-04 09:15] LABS: Creatinine Urine Random 121.8 mg/dL
[2023-10-04 09:16] LABS: Alanine Aminotransferase 18 IU/L (<50); Albumin 3.8 g/dL (3.5-5.0); Albumin Globulin Ratio 1.2 (1.0-2.8); Alkaline Phosphatase 50 U/L (38-126); Aspartate Aminotransferase 20 IU/L (17-59); BUN Creatinine Ratio 30.9 (6-22); Bilirubin Total 0.5 mg/dL (0.2-1.3); Blood Urea Nitrogen 34 mg/dL (9-20); Calcium 9.2 mg/dL (8.4-10.2); Carbon Dioxide 26 mmol/L (22-32); Chloride 102 mmol/L (98-107); Cholesterol 120 mg/dL (140-199); Estimated Glomerular Filt Rate > 60 mL/min (>60); Globulin 3.1 g/dL (1.7-4.1); Glucose 103 mg/dL (80-110); HDL Cholesterol 54 mg/dL (40-60); HEMOLYSIS < 15 (0-50); LDL Cholesterol Calculated 50 mg/dL (<100); Potassium 5.1 mmol/L (3.4-5.1); Sodium 135 mmol/L (137-145); Total Protein 6.9 g/dL (6.3-8.2); Triglycerides 79 mg/dL (35-150)
[2023-10-04 09:19] LABS: Microalbumi Creatinin Ratio Ur 9.8 ug/mg CR (<30); Microalbumin Urine Random 1.2 mg/dL (0-1.6)
[2023-10-04 09:24] LABS: NT-proBNP (BNP-Adult 18+) 410 pg/mL (<450)
[2023-10-04 09:28] LABS: Percent Iron Saturation 30 % (20-50); Total Iron Binding Capacity 294 ug/dL (261-462); Transferrin 253 mg/dL (206-381)
[2023-10-04 09:31] LABS: Free T3, Triiodothyronine Free 3.93 pg/mL (2.77-5.27); Free T4, Direct Thyroxine 1.47 ng/dL (0.78-2.19)
[2023-10-04 09:44] LABS: Thyroid Stimulating Hormone 0.812 uIU/mL (0.47-4.68)
[2023-10-04 10:06] LABS: Vitamin B12 > 1000 pg/mL (239-931)
== END ==
LOC: ECHO 06:44
PROVIDERS: Family Provider Student in an Organized Health Care Education/Training Program; PCP Nurse Practitioner; Referring Provider Internal Medicine Cardiovascular Disease; Visit Provider Internal Medicine Cardiovascular Disease
DX: I08.3 Combined rheumatic disorders of mitral, aortic and tricuspid valves (principal); I50.22 Chronic systolic (congestive) heart failure; Z79.899 Other long term (current) drug therapy; R06.09 Other forms of dyspnea; I42.9 Cardiomyopathy, unspecified; E44.1 Mild protein-calorie malnutrition; D64.9 Anemia, unspecified; R40.0 Somnolence; I10 Essential (primary) hypertension; E78.00 Pure hypercholesterolemia, unspecified; R41.3 Other amnesia; I48.91 Unspecified atrial fibrillation; R73.01 Impaired fasting glucose; R41.0 Disorientation, unspecified
CPT/HCPCS: 36415; 80053; 80061; 82043; 82570; 82607; 83036; 83540; 83550; 83880; 84439; 84443; 84481; 85025; 93306

== ENCOUNTER → 2023-10-08 16:00 | Outpatient (CLI) | payer MEDICARE, OTHER, SELFPAY ==
[2022-07-31 15:20] VITALS: BMI 30.9
== END ==
LOC: RESP 16:01
PROVIDERS: Family Provider Student in an Organized Health Care Education/Training Program; PCP Nurse Practitioner; Referring Provider Nurse Practitioner; Visit Provider Nurse Practitioner
DX: Z01.810 Encounter for preprocedural cardiovascular examination (principal)
CPT/HCPCS: 93005; 93010

== ENCOUNTER → 2023-11-02 10:12 | Outpatient (CLI) | payer MEDICARE, OTHER, SELFPAY ==
[2022-07-31 15:20] VITALS: BMI 30.9
--- NOTE | 2023-11-02 10:38 | DI.DEXA.S_ITS ---
Bone Density Report Name: ALEJO COWAN JR Age: 88 Sex: Male Ethnicity: White Date of : 1935 Indication: screening for osteoporosis; Referring Provider: RICH HAYNES Study: Bone densitometry was performed. Exam Date: November 02, 2023 Accession number: [id number] Bone Density: Region BMD T-score Z-score Classification AP Spine(L1, L2, L3) 1.044 0.2 1.0 Normal Femoral Neck (Left) 0.514 -3.0 -1.4 Osteoporosis Total Hip (Left) 0.642 -2.5 -1.3 Osteoporosis Femoral Neck (Right) 0.575 -2.5 -0.9 Osteoporosis Total Hip (Right) 0.669 -2.2 -1.1 Osteopenia Total Hip Mean 0.656 -2.4 -1.2 Osteopenia World Health Organization criteria for BMD impression classify patients as: Normal (T-score at or above -1.0), Osteopenia (T-score between -1.0 and -2.5), or Osteoporosis (T-score at or below -2.5). Impression: The patient has osteoporosis, based on the Left Femoral Neck T-score. Discussion: INCREASED RISK OF FRACTURE. BONE DENSITY IS UNDESIRABLY LOW AT ONE OR MORE SKELETAL SITES, CONSISTENT WITH OSTEOPOROSIS. This patient's lowest T-score meets the World Health Organization's (WHO) criteria for osteoporosis at one or more sites (T-score -2.5 or below). In untreated patients, the risk of osteoporotic fracture increases approximately two-fold for each 1.0 SD decrease in T-score. Low bone density is not the only risk factor for fracture; also consider factors such as patient's age, frailty or poor health, risk of falling, risk of injury, previous osteoporotic fracture, family history of osteoporosis, cigarette smoking, low body weight, etc. Not everyone with low bone mineral density has osteoporosis; osteomalacia and other metabolic bone disorders should also be considered. Patients who have osteoporosis should be evaluated for specific diseases and conditions (secondary causes) that may cause or contribute to bone loss. The National Osteoporosis Foundation (NOF) recommends pharmacologic intervention for men with BMD at this level (a T-score of -2.5 or below). The patient should follow a healthful lifestyle (good nutrition with adequate calcium and vitamin D, and appropriate weight-bearing exercise). Follow-Up: Consider repeating this study in 2 years to reassess this patient's status, or sooner if there is some new clinical indication. Reported by: CARMEN MAXWELL MD on 11/02/2023 12:34:00 PM.
== END ==
LOC: RAD 10:13
PROVIDERS: Family Provider Student in an Organized Health Care Education/Training Program; PCP Nurse Practitioner; Referring Provider Orthopaedic Surgery Adult Reconstructive Orthopaedic Surgery; Visit Provider Orthopaedic Surgery Adult Reconstructive Orthopaedic Surgery
DX: M81.0 Age-related osteoporosis without current pathological fracture (principal)
CPT/HCPCS: 77080

== ENCOUNTER → 2023-11-12 16:42 | Outpatient (CLI) | payer MEDICARE, OTHER, SELFPAY ==
[2022-07-31 15:20] VITALS: BMI 30.9
[2023-11-12 18:21] LABS: Influenza A - CEPHEID Flu A NEGATIVE (NEGATIVE); Influenza B - CEPHEID Flu B NEGATIVE (NEGATIVE); Respiratory Syncytial Virus Negative (Negative)
[2023-11-12 18:30] LABS: COVID-19 CEPHEID 4-PLEX PCR Negative (Negative)
== END ==
PROVIDERS: Family Provider Student in an Organized Health Care Education/Training Program; PCP Nurse Practitioner; Visit Provider Physician Assistant Surgical
DX: R05.3 Chronic cough (principal)
CPT/HCPCS: 0241U

== ENCOUNTER → 2023-11-13 09:16 | Outpatient (CLI) | payer MEDICARE, OTHER, SELFPAY ==
[2022-07-31 15:20] VITALS: BMI 30.9
--- NOTE | 2023-11-13 09:19 | DI.RAD.S_ITS ---
PROCEDURE: XR CHEST 2V INDICATIONS: Cough, chest congestion, preop TECHNIQUE: 2 views of the chest were acquired. COMPARISON: [facility], CR, XR CHEST 1V, 08/17/2023, 11:14. [facility], CR, XR CHEST 2V, 06/20/2023, 9:38. FINDINGS: Surgical changes and devices: None. Lungs and pleura: Lungs are clear. No pleural effusions or pneumothorax. Mediastinum: Mediastinal contours are normal. Cardiac silhouette is slightly enlarged. Bones and chest wall: No suspicious bony abnormalities. Soft tissues appear unremarkable. IMPRESSION: No focal pulmonary consolidation seen Slightly enlarged cardiac silhouette, unchanged Dictated by: Abdiaziz Trejo M.D. on 11/13/2023 at 12:55 Approved by: Abdiaziz Trejo M.D. on 11/13/2023 at 13:05
== END ==
LOC: RAD 09:18
PROVIDERS: Family Provider Student in an Organized Health Care Education/Training Program; PCP Nurse Practitioner; Referring Provider Physician Assistant Surgical; Visit Provider Physician Assistant Surgical
DX: R05.9 Cough, unspecified (principal)
CPT/HCPCS: 71046

== ENCOUNTER 2023-11-29 21:50 | Emergency (ER) | payer MEDICARE, OTHER, SELFPAY ==
[2022-07-31 15:20] VITALS: BMI 30.9
--- NOTE | 2023-11-29 21:57 | ED_ITS ---
HPI - Nausea/Vomiting/Diarrhea General Chief complaint: GI Bleed Stated complaint: coffee ground emesis Time Seen by Provider: 11/29/23 21:55 History of Present Illness HPI Narrative: 88-year-old male with history of chronic dysphagia, reflux, AFib on Eliquis presents by EMS from home for coffee-ground emesis. Patient was poor historian and most of history is supplied from son at bedside, who is [id number]. Son states that patient has had nausea for the last 2 days and this evening he threw up brownish material that did not appear to be anything that the patient had eaten today. Patient saw his primary care provider for nausea earlier this week and was prescribed Zofran, but it does not appear to be helping very much. He also is on chronic PPI and Pepto-Bismol. Patient does take Eliquis but is currently on an Eliquis taper as he was scheduled for a Orthopedic surgery 1 week from today. Son reports dark stools, but these have been ongoing since patient started Pepto-Bismol. On arrival patient reports nausea, denies abdominal pain. Related Data Home Medications Medication Instructions Recorded Confirmed CoQ-10 400 mg PO QPM ##0 11/21/16 11/12/23 ascorbic acid (vitamin C) 500 mg 500 mg PO DAILY ##0 11/21/16 11/12/23 tablet tamsulosin 0.4 mg capsule (Flomax) 0.8 mg PO QPM ##0 11/21/16 11/12/23 [VITAMIN K2] 100 mcg PO QPM ##0 03/06/17 11/12/23 alpha lipoic acid 600 mg capsule 600 mg PO BEDTIME 12/11/18 11/12/23 apixaban 5 mg tablet (Eliquis) 5 mg PO BID 10/26/20 11/12/23 amlodipine 10 mg tablet 5 mg PO BEDTIME 02/20/22 11/12/23 ResMed AirSense Auto 03/27/22 11/12/23 Vitamin D3 See Rx Instructions PO DAILY 06/13/22 11/12/23 empagliflozin 10 mg tablet 10 mg PO BEDTIME 08/29/23 11/12/23 (Jardiance) furosemide 20 mg tablet (Lasix) 40 mg PO DAILY PRN Edema 08/29/23 11/12/23 lisinopril 20 mg tablet 10 mg PO QPM 08/29/23 11/12/23 spironolactone 25 mg tablet 25 mg PO DAILY 08/29/23 11/12/23 trospium 20 mg tablet 20 mg PO BID 11/12/23 11/12/23 Previous Rx's Medication Instructions Recorded nitroglycerin 0.4 mg sublingual 0.4 mg sublingual Q5-15M PRN Chest 03/02/23 tablet Pain #20 tabs gabapentin 300 mg capsule 900 mg (3 x 300 mg) PO BID #360 05/01/23 caps baclofen 5 mg tablet 5 mg PO BID PRN muscle spasm #60 10/09/23 tabs rosuvastatin 5 mg tablet (Crestor) 10 mg (2 x 5 mg) PO .COMPLEX #135 10/09/23 tabs dulaglutide 0.75 mg/0.5 mL 0.75 mg (0.5 mL) SUBCUT QWEEK #2 mL 11/01/23 subcutaneous pen injector (Trulicity) ondansetron 4 mg disintegrating 4 mg PO Q8H PRN nausea and 11/01/23 tablet vomiting #30 tabs venlafaxine 37.5 mg 75 mg (2 x 37.5 mg) PO BEDTIME 11/08/23 capsule,extended release 24 hr #180 caps omeprazole 20 mg capsule,delayed 20 mg PO DAILY #90 caps 11/26/23 release metoclopramide HCl 10 mg tablet 10 mg PO Q6H PRN nausea and 11/30/23 (Reglan) vomiting #30 tabs Allergies Allergy/AdvReac Type Severity Reaction Status Date / Time No Known Drug Allergies Allergy Verified 11/12/23 16:40 Review of Systems Review of Systems Narrative: Negative except as noted above Patient History Medical History History of COVID-19 Peripheral neuropathy Waters's palsy Depression TIA (transient ischemic attack) Memory changes SEAN treated with BiPAP Myocardial infarction (12/2006) Class 1 obesity due to excess calories with body mass index (BMI) of 31.0 to 31.9 in adult Pre-diabetes Gastric reflux Protein-calorie malnutrition, mild Anemia Chronic anticoagulation Acute GI bleeding Headache Hx of myocardial infarction (Unknown) Hypertension (Unknown) Lumbar disc disease (2012) Polio (1950) Chickenpox Measles Hearing loss (2014) Coronary artery disease (2008) Prostate cancer (2008) Peripheral polyneuropathy (03/06/17) Left foot drop (03/06/17) Vitamin D deficiency (11/21/16) Gastroesophageal reflux disease (06/13/16) Statin intolerance (02/08/16) Spinal stenosis of lumbar region (02/08/16) Pure hypercholesterolemia (02/08/16) History of malignant neoplasm of prostate (04/08/15) Essential hypertension (02/08/16) Coronary artery disease involving [place] coronary artery of [place] heart without angina pectoris (02/08/16) Balance problems (02/08/16) Surgical History Hx of heart artery stent (12/2006) History of prostate surgery (2009) Status post laminectomy Family History Father No problems noted. Mother Cancer Grandfather No problems noted. Grandmother No problems noted. Grandfather No problems noted. Grandmother Cancer Family/Other Stroke Heart attack Coronary artery disease Congestive heart failure Social History marital status: household members: none Smoking Status: Former smoker second hand exposure: No alcohol intake: current substance use type: does not use Smoking Status: Former smoker alcohol intake frequency: holidays/special occasions only Substance Use Type: does not use Exam Initial Vital Signs Initial Vital Signs: Vital Signs Pulse Rate 81 11/29/23 21:59 Respiratory Rate 20 11/29/23 21:59 Pulse Oximetry 96 11/29/23 21:59 Oxygen Delivery Method Room Air 11/29/23 21:59 Const: Awake, alert, no acute distress, frail Cardiac: regular rate, regular rhythm RESP: unlabored, clear bilaterally, no wheezing GI: Obese, soft, minimal tenderness to deep palpation midepigastric region MSK: Atraumatic, full range of motion, pulses equal Skin: Warm, Dry, intact, no rashes Neuro: AO x3, CN II-XII grossly intact, moves all extremities Course Orders Ordered: ED Orders 11/29/23 21:53 CBC Auto Diff [Complete Blood Count AUTO DIFF] Stat CMP [Comprehensive Metabolic Panel] Stat Lactate (Lactic Acid) Stat Lipase Stat PT [Prothrombin Time INR] Stat 11/29/23 21:56 CT abdomen pelvis w con Stat 11/29/23 21:57 EKG-12 Lead Stat 11/30/23 01:20 HH [Hemoglobin and Hematocrit] Stat Discontinued Medications Al Hydrox/Mg Hydrox/Simethicone (Mag Hydrox/Alum/Simeth 30 Ml Udc) 30 ml PO NOW ONE Stop: 11/30/23 01:59 Last Admin: 11/30/23 02:05 Dose: 30 ml Lidocaine HCl (Lidocaine Viscous 2% 15 Ml Solution) 15 ml PO NOW ONE Stop: 11/30/23 01:59 Last Admin: 11/30/23 02:05 Dose: 15 ml Metoclopramide HCl (Metoclopramide 10 Mg/2 Ml Inj) 10 mg IV NOW ONE Stop: 11/29/23 21:57 Last Admin: 11/29/23 22:15 Dose: 10 mg Documented By: ARTURO Pantoprazole Sodium (Pantoprazole 40 Mg Vial) 80 mg IV NOW ONE Stop: 11/29/23 21:57 Last Admin: 11/29/23 22:15 Dose: 80 mg Documented By: ARTURO Vital Signs Vital signs: Vital Signs - 8 hr 11/29/23 21:59 11/29/23 22:00 11/29/23 22:00 Temperature Pulse Rate 81 80 Respiratory Rate 20 23 Blood Pressure 128/60 Pulse Oximetry 96 95 Oxygen Delivery Method Room Air Room Air 11/29/23 22:04 11/29/23 22:45 11/29/23 23:00 Temperature 98.3 F Pulse Rate 91 H 75 75 Respiratory Rate 17 22 19 Blood Pressure 115/71 Pulse Oximetry 96 96 94 Oxygen Delivery Method Room Air Room Air Room Air 11/29/23 23:30 11/30/23 00:08 11/30/23 00:09 Temperature Pulse Rate 76 98 H Respiratory Rate 17 24 Blood Pressure 149/67 H Pulse Oximetry 95 98 Oxygen Delivery Method Room Air Room Air 11/30/23 00:09 11/30/23 00:30 11/30/23 00:30 Temperature Pulse Rate 92 H 77 Respiratory Rate 23 17 Blood Pressure 127/59 L Pulse Oximetry 98 95 Oxygen Delivery Method Room Air Room Air 11/30/23 01:00 11/30/23 01:00 Temperature Pulse Rate 77 Respiratory Rate 16 Blood Pressure 127/60 Pulse Oximetry 94 Oxygen Delivery Method Room Air MDM - Nausea/Vomiting/Diarrhea Lab Data 11/30/23 01:20 11/29/23 21:53 Labs: Lab Results 11/29/23 11/30/23 Range/Units 21:53 01:20 WBC 10.4 (4.5-11.0) X10^3/uL RBC 4.15 L (4.5-5.9) X10^6/uL Hgb 13.6 13.0 L (13.5-17.5) g/dL Hct 40.6 L 38.9 L (41-53) % MCV 97.8 (80-100) fL MCH 32.7 (26-34) PG MCHC 33.4 (30-36) % RDW 13.8 (11.6-14.8) % Plt Count 175 (150-400) X10^3/uL Neut % (Auto) 79.7 H (50-75) % Lymph % (Auto) 9.5 L (25-40) % [place] % (Auto) 9.0 (3-14) % Eos % (Auto) 1.4 L (2-4) % Baso % (Auto) 0.4 (0-2) % Neut # (Auto) 8300 H (2602-2864) /uL Lymph # (Auto) 1000 L (2464-9279) /uL Woodruff # (Auto) 900 (0-900) /uL Eos # (Auto) 100 (0-450) /uL Baso # (Auto) 0 (0-100) /uL PT 14.7 H (9.4-12.5) SECONDS INR 1.3 (0.9-1.3) Sodium 136 L (137-145) mmol/L Potassium 5.1 (3.4-5.1) mmol/L Chloride 105 (98-107) mmol/L Carbon Dioxide 28 (22-32) mmol/L BUN 25 H (9-20) mg/dL Creatinine 0.88 (0.66-1.25) mg/dL Estimated GFR > 60 (>60) mL/min BUN/Creatinine Ratio 28.4 H (6-22) Glucose 140 H (80-110) mg/dL Lactate 1.2 (0.7-2.1) mmol/L Calcium 8.8 (8.4-10.2) mg/dL Total Bilirubin 0.6 (0.2-1.3) mg/dL AST 23 (17-59) IU/L ALT 16 (<50) IU/L Alkaline Phosphatase 52 (38-126) U/L Total Protein 6.9 (6.3-8.2) g/dL Albumin 3.6 (3.5-5.0) g/dL Globulin 3.3 (1.7-4.1) g/dL Albumin/Globulin Ratio 1.1 (1.0-2.8) Lipase 17 L (23-300) U/L Imaging Data CT scan - abdomen/pelvis: My Impression: PROCEDURE: CT ABDOMEN PELVIS W CON INDICATIONS: N/V/COFFEE GROUND EMESIS TECHNIQUE: After the administration of intravenous contrast, axial sections acquired from the lung bases to the pubic symphysis. Coronal and sagittal reformats were performed. For radiation dose reduction, the following was used: automated exposure control, adjustment of mA and/or kV according to patient size. COMPARISON: [facility], CT, CT KIDNEY URETER BLADDER (KUB), 09/20/2022, 11:55. FINDINGS: Image quality: Diagnostic. Lower Chest: Cardiomegaly. ABDOMEN: Liver: No solid mass. Gallbladder: No radiopaque gallstones or wall thickening. Biliary ducts: No biliary dilation. Pancreas: No ductal dilation. Spleen: Size is within normal limits. Adrenal Glands: No adrenal nodules. Kidneys and Ureters: No hydronephrosis. No solid mass. No complex renal cystic lesion which requires follow up. Stomach and Bowel: At least moderate gastric distention without evidence of gastric outlet obstruction. Small bowel is normal in caliber. Colon is normal in caliber. At least moderate fecal load. Peritoneum: No abnormal intraperitoneal fluid. No free air. Ventral Wall: No significant ventral hernia. Abdominal Nodes: No retroperitoneal or mesenteric adenopathy by size criteria. Vessels: Aorta and inferior vena cava are normal in size. PELVIS: Pelvic Organs: Prostate implant seeds.. Bladder: No bladder wall thickening, accounting for underdistention. Pelvic Nodes: No enlarged lymph nodes. Miscellaneous: No inguinal hernias are seen. Bones: No aggressive osseous abnormality. Diffuse lumbar degenerative change with multilevel canal stenosis. IMPRESSION: 1. Cardiomegaly. 2. At least moderate gastric distention with no evidence of a cause of gastric outlet obstruction. 3. Normal caliber small bowel and colon. At least moderate fecal debris. 4. No other potentially acute findings noted. 5. Multilevel lumbar canal stenosis. Dictated by: Willie Freed M.D. on 11/29/2023 at 23:07 Approved by: Willie Freed M.D. on 11/29/2023 at 23:12 [facility] Narrative Medical decision making narrative: Single episode of possible coffee-ground emesis. Son showed me a picture of the emesis which did appear to be brownish, but no particulate matter consistent with blood flecks seemed to be present. Abdomen is soft but he does have tenderness to deep palpation in the midepigastric region. Protonix and Reglan ordered. Little utility in hemoccult since patient is chronically on pepto Initial laboratory work significant for hemoglobin of 13.6, WBC count 10.4, platelets 175. BUN 25, creatinine 0.88 with BUN creatinine ratio 28. Patient has had no further episodes of emesis since arrival to the emergency department. CT scan of the abdomen and pelvis shows gastric distention without evidence of obstruction. Will repeat HH in several hours. Patient does have marked coughing after taking p.o, however son states that this is longstanding and normal for the patient. Repeat H&H is 13.0. Slightly decreased from previous but still well within patient's range normal on multiple previous measurements. Patient and son informed of all lab and imaging findings. I notified them of the distended stomach and recommended close follow up with the physician who performed the patient's previous endoscopy. We will trial Reglan for promotil properties. Strict ED return precautions discussed at bedside with patient and son. Son lives next door to patient and will check on him frequently Discharge Plan Departure Patient Disposition: Home Clinical Impression: Nausea & vomiting Instructions: DI for Nausea -- Adult Activity Restrictions/Additional Instructions: Your laboratory work showed that your hemoglobin is within your usual range. Your CT scan showed some distention of your stomach but no blockage or obstruction. I am uncertain of the cause of your symptoms but recommend continuing your nausea medication. You can try changing the nausea medication from Zofran to Reglan, as this drug helps gastric motility. If you notice severe weakness, worsening abdominal pain, or recurrent coffee-ground emesis then I recommend returning to the emergency department for evaluation. Follow up with the doctor who performed your endoscopy if you continue to experience symptoms. Prescriptions: New metoclopramide HCl [Reglan] 10 mg tablet 10 mg PO Q6H PRN (Reason: nausea and vomiting) Qty: 30 0RF No Action alpha lipoic acid 600 mg capsule 600 mg PO BEDTIME tamsulosin [Flomax] 0.4 MG capsule,extended release 24hr 0.8 mg PO QPM Qty: 0 CoQ-10 400 mg PO QPM Qty: 0 ascorbic acid (vitamin C) 500 MG tablet 500 mg PO DAILY Qty: 0 [VITAMIN K2] 100 mcg PO QPM Qty: 0 Patient Comments: vitamin K2 MK7 c MenaQ7 nitroglycerin 0.4 mg tablet, sublingual 0.4 mg SL Q5-15M PRN (Reason: Chest Pain) Qty: 20 11RF gabapentin 300 mg capsule 900 mg PO BID Qty: 360 2RF Rx Instructions: Managed by Dr Arndt/Neurologist venlafaxine 37.5 mg capsule,extended release 24hr 75 mg PO BEDTIME Qty: 180 3RF omeprazole 20 mg capsule,delayed release(/EC) 20 mg PO DAILY Qty: 90 3RF Rx Instructions: Take 1 cap by mouth daily Eliquis 5 mg tablet 5 mg PO BID Vitamin D3 1,500 unit See Rx Instructions PO DAILY Rx Instructions: 5000-1000IU daily orally daily; amlodipine 10 mg tablet 5 mg PO BEDTIME Patient Comments: takes 5 mg in the evening Rx Instructions: Report pressures to PCP furosemide [Lasix] 20 mg tablet 40 mg PO DAILY PRN (Reason: Edema) spironolactone 25 mg tablet 25 mg PO DAILY Jardiance 10 mg tablet 10 mg PO BEDTIME lisinopril 20 mg tablet 10 mg PO QPM rosuvastatin [Crestor] 5 mg tablet 10 mg PO .COMPLEX Qty: 135 3RF Rx Instructions: 10 mg orally alternating every other day with 5mg, for hyperlipidemia; baclofen 5 mg tablet 5 mg PO BID PRN (Reason: muscle spasm) Qty: 60 2RF Trulicity 0.75 mg/0.5 mL pen injector 0.75 mg SUBCUT QWEEK Qty: 2 0RF Patient Comments: Will not start until after surgery Rx Instructions: Inject 0.5mL (0.75mg) SQ weekly x4 weeks. ondansetron 4 mg tablet,disintegrating 4 mg PO Q8H PRN (Reason: nausea and vomiting) Qty: 30 3RF trospium 20 mg Tablet 20 mg PO BID Rx Instructions: administer on an empty stomach (DME) ResMed AirSense Auto See Rx Instructions .Route .MEDSUPPLY Rx Instructions: CPAP Min: 6 Max: 16 DME: [facility]AD: 02/09/21 Referrals: Marbella Duenas ARNP [Primary Care Provider] - Stand Alone Forms: Patient Portal/API
[2023-11-29 21:59] VITALS: PULSE 81; RESP 20; O2SAT 96
[2023-11-29 22:00] VITALS: BP 128/60; PULSE 80; RESP 23; O2SAT 95
[2023-11-29 22:04] VITALS: BP 115/71; PULSE 91; RESP 17; TEMP 36.8; O2SAT 96; BMI 31.3
[2023-11-29 22:05] LABS: Add Manual Diff / Slide Review NO; Basophils Absolute Auto 0 /uL (0-100); Basophils Percent Auto 0.4 % (0-2); Eosinophils Absolute Auto 100 /uL (0-450); Eosinophils Percent Auto 1.4 % (2-4); Hematocrit 40.6 % (41-53); Hemoglobin 13.6 g/dL (13.5-17.5); Lymphocytes Absolute Auto 1000 /uL (1100-4500); Lymphocytes Percent Auto 9.5 % (25-40); Mean Corpuscular HGB Conc 33.4 % (30-36); Mean Corpuscular Hemoglobin 32.7 PG (26-34); Mean Corpuscular Volume 97.8 fL (80-100); Monocytes Absolute Auto 900 /uL (0-900); Neutrophils Absolute Auto 8300 /uL (1500-7000); Neutrophils Percent Auto 79.7 % (50-75); Platelet Count 175 X10^3/uL (150-400); Red Blood Cell Count 4.15 X10^6/uL (4.5-5.9); Red Cell Distribution Width 13.8 % (11.6-14.8); White Blood Cell Count 10.4 X10^3/uL (4.5-11.0)
[2023-11-29 22:11] LABS: INR 1.3 (0.9-1.3); Prothrombin Time 14.7 SECONDS (9.4-12.5)
[2023-11-29] MEDS: METOCLOPRAMIDE 10 MG/2 ML INJ IV (22:15)
[2023-11-29] MEDS: PANTOPRAZOLE 40 MG VIAL 80 MG IV (22:15)
[2023-11-29 22:16] LABS: Lactate (Lactic Acid) 1.2 mmol/L (0.7-2.1)
[2023-11-29 22:17] LABS: Alanine Aminotransferase 16 IU/L (<50); Albumin 3.6 g/dL (3.5-5.0); Albumin Globulin Ratio 1.1 (1.0-2.8); Alkaline Phosphatase 52 U/L (38-126); Aspartate Aminotransferase 23 IU/L (17-59); BUN Creatinine Ratio 28.4 (6-22); Bilirubin Total 0.6 mg/dL (0.2-1.3); Blood Urea Nitrogen 25 mg/dL (9-20); Calcium 8.8 mg/dL (8.4-10.2); Carbon Dioxide 28 mmol/L (22-32); Chloride 105 mmol/L (98-107); Estimated Glomerular Filt Rate > 60 mL/min (>60); Globulin 3.3 g/dL (1.7-4.1); Glucose 140 mg/dL (80-110); Lipase 17 U/L (23-300); Potassium 5.1 mmol/L (3.4-5.1); Sodium 136 mmol/L (137-145); Total Protein 6.9 g/dL (6.3-8.2)
[2023-11-29 22:19] LABS: HEMOLYSIS 61 (0-50)
[2023-11-29 22:45] VITALS: PULSE 75; RESP 22; O2SAT 96
[2023-11-29 23:00] VITALS: PULSE 75; RESP 19; O2SAT 94
[2023-11-29 23:30] VITALS: PULSE 76; RESP 17; O2SAT 95
[2023-11-30 00:08] VITALS: PULSE 98; RESP 24; O2SAT 98
[2023-11-30 00:09] VITALS: BP 149/67; PULSE 92; RESP 23; O2SAT 98
[2023-11-30 00:30] VITALS: BP 127/59; PULSE 77; RESP 17; O2SAT 95
[2023-11-30 01:00] VITALS: BP 127/60; PULSE 77; RESP 16; O2SAT 94
[2023-11-30 01:24] LABS: Hematocrit 38.9 % (41-53)
[2023-11-30 01:30] VITALS: BP 125/58; PULSE 76; RESP 16; O2SAT 95
[2023-11-30 02:00] VITALS: BP 132/63; PULSE 80; RESP 18; O2SAT 95
[2023-11-30] MEDS: MAG HYDROX/ALUM/SIMETH 30 ML UDC PO (02:05)
[2023-11-30] MEDS: LIDOCAINE VISCOUS 2% 15 ML SOLUTION PO (02:05)
== END 2023-11-30 02:24 | disposition home or self-care (01) ==
PROVIDERS: Emergency Provider Emergency Medicine; Family Provider Student in an Organized Health Care Education/Training Program; PCP Nurse Practitioner
DX: R11.2 Nausea with vomiting, unspecified (principal); Z79.01 Long term (current) use of anticoagulants
CPT/HCPCS: 36415; 74177; 80053; 83605; 83690; 85014; 85018; 85025; 85610; 96374; 96375; 99284; C9113; J2765; Q9967

== ENCOUNTER 2023-12-06 13:31 | Inpatient (IN) | payer MEDICARE, OTHER, SELFPAY ==
[2022-07-31 15:20] VITALS: BMI 30.9
[2023-11-22 14:45] VITALS: BMI 32.8
[2023-12-06] VITALS (27 sets, daily range): BP systolic 83–159; BP diastolic 37–76; PULSE 53–107; RESP 14–22; TEMP 35.9–36.8; O2SAT 94–100; BMI 32.8
--- NOTE | 2023-12-06 06:00 | DI.RAD.S_ITS ---
PROCEDURE: XR HIP W PEL IF DONE RT 2V INDICATIONS: THELMA TECHNIQUE: Intraoperative AP pelvis and lateral view of the hip acquired. COMPARISON: [facility], CT, CT ABDOMEN PELVIS W CON, 11/29/2023, 22:35. FINDINGS: Status post right hip arthroplasty, with hardware components in expected positions. Moderate left hip DJD. Brachytherapy seeds. IMPRESSION: Intraoperative guidance. Right hip arthroplasty. Dictated by: David Hall M.D. on 12/06/2023 at 10:39 Approved by: David Hall M.D. on 12/06/2023 at 10:40
[2023-12-06] MEDS: MELOXICAM 7.5 MG TABLET PO (07:19)
[2023-12-06] MEDS: LACTATED RINGERS 1,000 ML 42 ML IV (07:20)
[2023-12-06] MEDS: ACETAMINOPHEN 325 MG TABLET 975 MG PO (07:20)
--- NOTE | 2023-12-06 07:34 | PM.PREOP ---
Pre-operative Note Interval Note History & Physical reviewed/Exam performed by Physician: Yes Changes to H&P: No
[2023-12-06] MEDS: TRANEXAMIC ACID 1,000 MG VIAL 1000 MG INJ ×2 (08:30→09:50)
[2023-12-06] MEDS: CEFAZOLIN 2 GM/100 ML PREMIX 100 ML IV ×2 (08:30→17:31)
--- NOTE | 2023-12-06 08:51 | SUR.OPER ---
Patient supine on padded [place] table, one arm on padded arm board at <90, other arm padded and secured with tape across patient's chest, both legs secured in padded traction boots and positioned per surgeon, padded post at patient's groin, pressure points checked and padded.
[2023-12-06] MEDS: ROPIVACAINE/EPI/CLONIDINE/KET 50 ML SYRINGE INJ (09:01)
--- NOTE | 2023-12-06 10:40 | P.OP_ITS ---
Operative Date/Time/Diagnoses Date of procedure: 12/06/23 Pre-op diagnosis: Right hip arthritis Post-op diagnosis: same Procedure & Clinicians Procedure: Right hybrid total hip arthroplasty with uncemented acetabular component and cemented polished tapered slip femoral component Same procedure as scheduled: Yes Surgeon: Benny Heredia Business Process Lead: Arturo Mcgowan Anesthesia Type: General and Local Operative Notes Estimated Blood Loss (mL): 500 Procedure in detail: Right Hybrid Direct Anterior Total Hip Arthroplasty with Uncemented Acetabular Component and Cemented Femoral Component: Implants: * Depuy Warrior Gription size 62 cup? * Depuy C Stem femoral stem size 3 high offset? * 36 mm +5 ceramic femoral head? Procedure Summary: 88-year-old male with multiple medical comorbidities who was evaluated for significant symptoms secondary to right hip arthritis. He has an ejection fraction of 40-45%, coronary artery disease status post prior stenting, atrial fibrillation, and diabetes mellitus. He was evaluated by his management planner who noted that ?patient is high risk for cardiovascular perioperative morbidity and mortality and can proceed with it without further cardiac testing?. Given the risk assessment indicating that no further optimization measures could be undertaken, he elected to proceed with elective total hip replacement with the understanding of his perioperative risks. He was previously scheduled for surgery but had some pulmonary symptoms in the week leading up to it. In order to avoid any modifiable risk factors in addition to his non modifiable risk factors I delayed his surgery based on this. He did rapidly recovered from that episode. Intraoperatively I utilized screws in his acetabular component and cemented fixation given his age of 88 and a DEXA scan indicating a T-score of- 2.2 and his operative hip. Additionally, as he will be on Eliquis postoperatively I utilized a incisional wound VAC device for his dressing. From a procedural perspective he received the templated sizes. He had appropriate leg length offset and stability with the templated stem, and a 62 mm cup which was only 2 mm larger than his templated 60 mm cup. Procedure in Detail: This patient was seen preoperatively and evaluated for hip pain which was refractory to numerous nonoperative treatment modalities. Their hip pain correlated with radiographic changes demonstrating significant degeneration in the hip joint. The risks and benefits of continued nonoperative management versus operative management were discussed at length and all of the patient?s questions were answered. Additional educational materials providing further details beyond our discussion in clinic were provided via a publicly available patient education video which included the incidence of medical complications associated with total hip arthroplasty, reasons for revision following total hip arthroplasty, and patient satisfaction rates following total hip arthroplasty. That video can be accessed at [email or web address] . With this understanding of the risks inherent to the procedure, the patient elected to move forward with operative management. Following preoperative optimization, the patient was scheduled for surgery. The patient was met in the preoperative holding area the day of the procedure and all questions were answered. The patient?s nares were swabbed with betadine in order to decolonize them from MRSA. Informed consent was signed and the operative limb was marked with indelible ink.? The patient was brought back to the operating room where anesthesia was induced. The patient was transferred to the Nabb table and all bony prominences were padded. The operative site was prepped and draped in the usual sterile fashion. Prior to incision, tranexamic acid and cefazolin were administered. Operative templating images were displayed demonstrating the anticipated implant sizes and correct operative extremity. A timeout procedure was performed verifying the patient?s identity, medical comorbidities, allergies, relevant medications, anesthesia type and the surgical plan. All present were in agreement. The assistance of a physician payroll human resources assistant was required for positioning, room setup, soft tissue retraction and wound closure. Without this assistance, the procedure would have been significantly more challenging and time consuming.?? A direct anterior approach to the hip was utilized. This was performed with a longitudinal incision through a Heuter interval. The incision was planned 2 cm distal and 2 cm lateral to the ASIS extending towards the lateral patella, in line with the muscle body of the TFL. Following incision, the subcutaneous tissue was dissected while taking care to avoid injury to the lateral femoral cutaneous nerve. The fascia overlying the TFL was identified by dissecting off the overlying fat and identifying perforating vessels to the TFL. The TFL fascia was incised and dissected away from the medial border of the TFL. A cobra retractor was placed over the superior femoral neck between the abductors and th e hip capsule and used to reflect the TFL laterally. A Coal self-retainer was then placed in the distal aspect of the wound between the TFL and the rectus femoris. This was tensioned to open up the direct anterior interval and the lateral circumflex vessels were identified and coagulated using electrocautery. The floor of the TFL fascia was incised, exposing the pericapsular fat overlying the hip capsule. A second cobra retractor was placed on the inferior femoral neck. A double-bent soft tissue retractor was placed on the anterior wall of the acetabulum and used to tension the reflected head of rectus femoris, which was then released in order to limit soft tissue tension. A capsulotomy was made in the midline of the anterior hip capsule in line with the femoral neck ending at the vastus tubercle. The double-bent retractor was removed in order to limit the amount of time that a soft tissue retractor remained on the anterior wall and protect the femoral nerve. Tag stitches were placed in the superior and inferior leaflets of the hip capsule. An Jhony soft tissue retractor was introduced over the tag stitches and tensioned in the interval between the rectus femoris and the TFL in order to retract and protect those muscles. The cobra retractors were replaced intracapsularly, with one over the superior neck in the pocket created by the base of the greater trochanter and the other on the femoral head. The capsulotomy was extended laterally to the base of the greater trochanter and medially to the lesser trochanter. This required externally rotating the hip. Once the lesser trochanter had been identified, a neck cut was planned according to measurements from preoperative templating. A ruler was cut at the length measured between the superior aspect of the lesser trochanter and the collar of the prosthesis. This line was extended towards the inferior aspect of the lateral cobra retractor to plan a cut which would leave minimal residual femoral neck laterally. The neck was cut at 60 degrees of external rotation along that line. A second cut was performed to remove a large napkin ring and facilitate head extraction. The napkin ring cut and femoral head were removed.?? A broad anterior wall retractor was placed between the labrum and the anterior capsule so that the anterior capsule would prevent capturing and pinching the femoral nerve anteriorly. An additional retractor was placed on the posterior wall. External rotation and traction were applied through the Nabb table so that the cut surface of the femoral neck would not restrict access to the acetabulum. The labrum was excised sharply and the pulvinar was excised with electrocautery to limit bleeding from branches of the obturator artery. Acetabular reamers were selected based on preoperative templating and measurements of the excised femoral head. These were introduced into the acetabulum. Fluoroscopy was utilized to replicate a standing AP pelvis radiograph by centering over the pelvis, rotating until there was appropriate symmetry between the obturator foramen, and introducing caudal tilt to match the position of the pubic symphysis relative to the sacrococcygeal junction according to the patient?s anatomy. Fluoroscopy was utilized to ensure appropriate reaming depth. Once satisfied with the reaming depth corresponding to the preoperative template and the pinch fit between the columns, an appropriate sized acetabular cup was selected which would provide 1 mm of press-fit. This cup was introduced and manipulated until appropriate abduction and anteversion angles were obtained with careful attention to appropriate abduction and anteversion angles as evaluated by the position of the cup relative to the anterior and posterior dillard of the acetabulum and the AP fluoroscopy which recreated the patient?s standing radiograph. The cup was impacted into place. Two screws were placed to provide additional fixation. Peripheral osteophytes were removed. The acetabular liner was then placed with care to ensure locking of the locking mechanism.? Attention was then turned to the femur. All retractors were removed, traction was released, a retractor was placed in the interval between the hip capsule and the gluteus minimus, and the hip was externally rotated to 90 degrees. Traction was applied through the Nabb table to tension the lateral capsule and this was released using electrocautery. Traction was released and a Nabb hook was placed posteriorly around the proximal femur at the level of the vastus ridge. The table height was lowered in order to restrict the tension on the anterior structures during hip hyperextension to limit the risk of femoral nerve palsy. With traction off and the hip at 90 degrees of external rotation, the hip was hyperextended and adducted while manually elevating the femur away from the acetabulum with the Nabb hook to ensure it would not be caught behind the greater trochanter. An asymmetric retractor was placed over the calcar and a broad double-pronged retractor was placed over the greater trochanter. The tag stitch capturing the lateral leaflet of the capsule was moved to the medial side, leaving the conjoined and piriformis tendons isolated in the face of the greater trochanter. The hip was externally rotated and elevated. A release of the conjoined tendon was utilized in order to limit excess tension on the femur during broaching. The canal was opened with an opening broach and a rasp was used to remove cancellous bone. A rongeur was used to remove the residual lateral bone at the base of the greater trochanter to avoid placing the stem in varus. The femur was then broached to the appropriate sized stem yielding good rotational fit and fill of the canal as well as appropriate version of the stem trial. Neck and head trials were placed, all retractors were removed and the hip was returned to neutral abduction and extension. I then reduced the hip. An AP pelvis fluoroscopic image matching the preoperative standing radiograph was obtained with both lesser trochanters visible and both hips in 40 degrees of external rotation. This demonstrated appropriate leg length and offset. He would started with equal leg lengths. An AP hip fluoroscopic image was obtained with the hip in neutral rotation which demonstrated appropriate canal fill. Hip stability was evaluated with 120 degrees of external rotation and a 45 degree drop test which demonstrated appropriate stability. The hip was dislocated and I returned to the broaching position. The canal was irrigated with a canal brush. A cement restrictor was placed. The canal was again irrigated with a canal brush. A whistle tip catheter was placed down the canal. Epinephrine soaked vaginal packing was placed down the canal. The vaginal packing was removed and cement was placed down the canal. The whistletip catheter was then removed. The cement was manually pressurized and then pressurized with the cement gun. The definitive stem was placed and the cement was allowed to dry. Excess cement was removed. Repeat trialing was performed to ensure appropriate head selection following placement of the definitive cemented stem. I returned to the broaching position. The trunnion was cleaned and dried. I placed a ceramic head onto the trunnion and impacted it into place on the March taper.??All retractors were removed and the hip was reduced. A dilute mixture of betadine and peroxide was used to bathe the soft tissues during final fluoroscopic assessment. Appropriate component positioning was confirmed on an AP pelvis radiograph with the operative and nonoperative legs in 40 degrees of external rotation, evaluating leg length and offset. Appropriate stem fill was evaluated on an AP hip radiograph with the operative leg in neutral rotation. No fractures were identified on these radiographs. Stability was satisfactory with a 90 degree external rotation test as well as a 45 degree drop test. The hip was copiously irrigated with pulse lavage. The capsule was closed with absorbable interrupted suture. The TFL fascia was closed with barbed suture while carefully protecting the lateral femoral cutaneous nerve from entrapment. A mixture of Ropivacaine, Epinephrine, Clonidine and Toradol was infiltrated throughout the soft tissues. The skin was closed with 2-0 and 3-0 sutures. Surgical glue was applied and a soft dressing was placed.??The sponge, in strument and needle counts were reported as being correct at the end of the case.??No obvious complications occurred. The patient was transferred from the Nabb table back to a stretcher. The patient emerged from anesthesia without difficulty and was taken to the PACU in a stable condition.? Plan for aftercare: * Anterior hip precautions * Weightbearing as tolerated * Mobilization as soon as the patient has recovered from anesthesia. If physical therapists are unavailable at the time the patient is ready to ambulate, then nursing staff should help patient ambulate * Eliquis 5 mg b.i.d. for DVT prophylaxis beginning on postoperative day 1 * Multimodal pain regimen with no IV opioids ordered * Intend to discharge patient home eventually after an inpatient stay. If he h as difficulty mobilizing we could consider a snf facility stay, however I would prefer to avoid this in order to limit his risk of acquiring a viral upper respiratory infection at a snf facility such as RSV flu or COVID * Sliding scale insulin * No NSAIDs * Minimize IV fluids and titrate according to patient's blood pressure * Follow up at [facility] in 2 weeks * Detailed postoperative instructions available at [email or web address]
--- NOTE | 2023-12-06 11:00 | DI.RAD.S_ITS ---
PROCEDURE: XR HIP W PEL IF DONE RT 2V INDICATIONS: POST OP RIGHT HIP TECHNIQUE: AP pelvis and lateral view of the hip acquired. COMPARISON: [facility], [facility], XR HIP W PEL IF DONE RT 2V, 12/06/2023, 9:20. FINDINGS: Bones: Patient is status post right hip arthroplasty, with hardware components in expected positions. The hip joint appears congruent. The visualized bony structures appear intact. Soft tissues: Overlying postoperative changes are noted. No suspicious soft tissue densities. Brachia therapy seeds noted in the of the prostate IMPRESSION: Expected post-operative appearance of a hip arthroplasty. Approved by: Benny Hernadez M.D. on 12/06/2023 at 12:39
[2023-12-06] MEDS: SODIUM CHLORIDE 0.9% 1,000 ML 84 ML IV (11:12)
[2023-12-06] MEDS: ALBUMIN HUMAN 50 GM/200 ML VIAL IV ×2 (11:14→12:12)
[2023-12-06 11:24] LABS: Hematocrit 36.5 % (41-53)
[2023-12-06] MEDS: ePHEDrine 50 MG/ML VIAL (12:07)
[2023-12-06] MEDS: NOREPINEPHRINE BITARTRATE/D5W 4 MG/250 ML PLAST..BAG 33.509 MG IV (12:16)
--- NOTE | 2023-12-06 12:45 | DI.RAD.S_ITS ---
PROCEDURE: XR CHEST 1V INDICATIONS: central line placement TECHNIQUE: One view of the chest was acquired. COMPARISON: [facility], CR, XR CHEST 2V, 11/13/2023, 8:31. [facility], CR, XR CHEST 1V, 08/17/2023, 11:14. FINDINGS: Surgical changes and devices: Left central venous catheter. The tip is horizontal and projecting over the upper mediastinum, likely in the region of the confluence of the brachiocephalic veins Lungs and pleura: Lungs are clear. No pleural effusions or pneumothorax. Mediastinum: Mediastinal contours appear normal. Heart size is enlarged, stable. Bones and chest wall: No suspicious bony lesions. Overlying soft tissues appear unremarkable. IMPRESSION: Left central venous catheter with tip horizontal and projecting over the upper mediastinum, likely in the region of the confluence of the brachiocephalic veins. Dictated by: Samuel Pham M.D. on 12/06/2023 at 15:01 Approved by: Samuel Pham M.D. on 12/06/2023 at 15:03
[2023-12-06] MEDS: VASOPRESSIN 40 UNIT in SODIUM CHLORIDE 0.9% 100 ML 4.5 UNIT IV (12:58)
--- NOTE | 2023-12-06 13:06 | SUR.PHASEI ---
Pt is hemodynamically stable. Pressors ordered and charted. Continuously monitored. Arterial line and central line supplies to bedside for Dr Ward. Time out completed prior to procedure for correct patient and procedures.
[2023-12-06] MEDS: fentaNYL 100 MCG/2 ML INJ 25 MCG IV (13:35)
--- NOTE | 2023-12-06 14:24 | PM.CN ---
History of Present Illness Consult details Date Patient Seen: 12/06/23 Chief complaint: Right Total Hip Arthroplasty/Anterior Narrative: Kenneth Ward Jr is a 88yo M with PMH of HFrEF of 40-45% in Sep 2023, CAD s/p stent in 2008, HTN, HLD, persistent A-fib on eliquis, NSVT, obesity, TIA, GERD, BPH, and SEAN on bipap who presents post-op from R total hip surgery with undifferentiated shock. Medicine consulted for management. Following lengthy R hip replacement while in PACU he developed shock with BP down to 70's systolic. Started on levophed and vasopressin. Central line and art line placed by anesthesia. Moved up to the ICU and once there he reports he feels like a million bucks. Has been weaned off vaso and currently on minimal levophed. No leukocytosis and Hgb dropped from 12 to 8.9 postop. He is very pale. He denies significant pain. His son is at bedside. Denies cough, CP, fever, abd pain or diarrhea. They report that he presented to the ED a week prior with vomiting of dark liquid. Concern for possible UGIB, but patient has been taking pepto-bismol which was also causing dark stools. No hemoptysis. He was off his eliquis for a week prior to his surgery. Meds Home Medications and Allergies Home Medications Medication Instructions Recorded Confirmed Type CoQ-10 400 mg PO QPM ##0 11/21/16 12/03/23 History ascorbic acid (vitamin C) 500 mg 500 mg PO DAILY ##0 11/21/16 12/03/23 History tablet tamsulosin 0.4 mg capsule (Flomax) 0.8 mg PO QPM ##0 11/21/16 12/06/23 History [VITAMIN K2] 100 mcg PO QPM ##0 03/06/17 12/03/23 History alpha lipoic acid 600 mg capsule 600 mg PO BEDTIME 12/11/18 12/03/23 History apixaban 5 mg tablet (Eliquis) 5 mg PO BID 10/26/20 12/03/23 History amlodipine 10 mg tablet 5 mg PO BEDTIME 02/20/22 12/03/23 History ResMed AirSense Auto 03/27/22 12/03/23 History Vitamin D3 See Rx Instructions PO DAILY 06/13/22 12/03/23 History nitroglycerin 0.4 mg sublingual 0.4 mg sublingual Q5-15M PRN Chest 03/02/23 12/03/23 Rx tablet Pain #20 tabs gabapentin 300 mg capsule 900 mg (3 x 300 mg) PO BID #360 05/01/23 12/03/23 Rx caps empagliflozin 10 mg tablet 10 mg PO BEDTIME 08/29/23 12/03/23 History (Jardiance) furosemide 20 mg tablet (Lasix) 40 mg PO DAILY PRN Edema 08/29/23 12/03/23 History lisinopril 20 mg tablet 10 mg PO QPM 08/29/23 12/03/23 History spironolactone 25 mg tablet 25 mg PO DAILY 08/29/23 12/06/23 History baclofen 5 mg tablet 5 mg PO BID PRN muscle spasm #60 10/09/23 12/06/23 Rx tabs rosuvastatin 5 mg tablet (Crestor) 10 mg (2 x 5 mg) PO .COMPLEX #135 10/09/23 12/03/23 Rx tabs dulaglutide 0.75 mg/0.5 mL 0.75 mg (0.5 mL) SUBCUT QWEEK #2 mL 11/01/23 12/06/23 Rx subcutaneous pen injector (Trulicity) ondansetron 4 mg disintegrating 4 mg PO Q8H PRN nausea and 11/01/23 12/06/23 Rx tablet vomiting #30 tabs venlafaxine 37.5 mg 75 mg (2 x 37.5 mg) PO BEDTIME 11/08/23 12/03/23 Rx capsule,extended release 24 hr #180 caps trospium 20 mg tablet 20 mg PO BID 11/12/23 12/06/23 History metoclopramide HCl 10 mg tablet 10 mg PO QID 30 days #120 tabs 12/03/23 12/06/23 Rx (Reglan) omeprazole 20 mg capsule,delayed 20 mg PO BID #180 caps 12/03/23 12/06/23 Rx release amlodipine 5 mg tablet 5 mg PO DAILY 12/06/23 History lisinopril 10 mg tablet 10 mg PO DAILY 12/06/23 History venlafaxine 25 mg tablet 25 mg PO DAILY 12/06/23 History venlafaxine 50 mg tablet 50 mg PO DAILY 12/06/23 History Allergies Allergy/AdvReac Type Severity Reaction Status Date / Time No Known Drug Allergies Allergy Verified 11/12/23 16:40 Review of Systems Review of Systems Narrative: All other systems reviewed with the patient and are negative unless otherwise stated. Exam Vital Signs (past 8 hours): - 12/06/23 06:59 12/06/23 10:48 12/06/23 10:53 Temperature 98.2 F 97 F L Pulse Rate 79 70 68 Respiratory Rate 16 15 14 Blood Pressure 156/68 H 83/49 L 93/73 Pulse Oximetry 98 97 97 Oxygen Delivery Method Room Air Room Air Nasal Cannula Oxygen Flow Rate 12/06/23 10:58 12/06/23 11:15 12/06/23 11:28 Temperature Pulse Rate 71 73 70 Respiratory Rate 14 16 16 Blood Pressure 92/46 L 101/48 L 99/51 L Pulse Oximetry 96 97 95 Oxygen Delivery Method Nasal Cannula Nasal Cannula Room Air Oxygen Flow Rate 12/06/23 11:56 12/06/23 12:13 12/06/23 12:30 Temperature Pulse Rate 78 104 H 89 Respiratory Rate 14 22 15 Blood Pressure 83/37 L 115/47 L Pulse Oximetry 97 99 98 Oxygen Delivery Method Nasal Cannula Nasal Cannula Nasal Cannula Oxygen Flow Rate 2 2 12/06/23 12:53 12/06/23 13:00 12/06/23 13:22 Temperature Pulse Rate 91 H 91 H 91 H Respiratory Rate 16 14 15 Blood Pressure 115/47 L 93/39 L 116/76 Pulse Oximetry 97 100 100 Oxygen Delivery Method Nasal Cannula Nasal Cannula Nasal Cannula Oxygen Flow Rate 2 2 2 12/06/23 13:39 12/06/23 14:10 Temperature Pulse Rate 89 84 Respiratory Rate 14 14 Blood Pressure 135/58 L 127/63 Pulse Oximetry 100 100 Oxygen Delivery Method Nasal Cannula Nasal Cannula Oxygen Flow Rate 3 3 Oxygen Delivery Method Nasal Cannula Oxygen Flow Rate 3 Narrative Exam Narrative: GEN: no acute distress, very pale HEENT: moist mucous membranes, PERRL NECK: trachea midline, no JVD CV: regular rate and rhythm, no murmurs PULM: clear bilaterally ABD: soft, nontender, nondistended, no organomegaly EXT: warm and well perfused with no edema NEURO: awake, alert, oriented, no focal deficits Objective Labs 12/06/23 14:15 12/06/23 14:15 Labs: Laboratory Results - last 24 hr 12/06/23 11:15 Hgb 12.0 L Hct 36.5 L Blood Type A Positive Antibody Screen Negative [facility] Medical History History of COVID-19 Peripheral neuropathy Waters's palsy Depression TIA (transient ischemic attack) Memory changes SEAN treated with BiPAP Myocardial infarction (12/2006) Class 1 obesity due to excess calories with body mass index (BMI) of 31.0 to 31.9 in adult Pre-diabetes Gastric reflux Protein-calorie malnutrition, mild Anemia Chronic anticoagulation Acute GI bleeding Headache Hx of myocardial infarction (Unknown) Hypertension (Unknown) Lumbar disc disease (2012) Polio (1949) Chickenpox Measles Hearing loss (2014) Coronary artery disease (2008) Prostate cancer (2008) Peripheral polyneuropathy (03/06/17) Left foot drop (03/06/17) Vitamin D deficiency (11/21/16) Gastroesophageal reflux disease (06/13/16) Statin intolerance (02/08/16) Spinal stenosis of lumbar region (02/08/16) Pure hypercholesterolemia (02/08/16) History of malignant neoplasm of prostate (04/08/15) Essential hypertension (02/08/16) Coronary artery disease involving nondalton coronary artery of nondalton heart without angina pectoris (02/08/16) Balance problems (02/08/16) Surgical History Hx of heart artery stent (12/2006) History of prostate surgery (2009) Status post laminectomy Family History Father No problems noted. Mother Cancer Grandfather No problems noted. Grandmother No problems noted. Grandfather No problems noted. Grandmother Cancer Family/Other Stroke Heart attack Coronary artery disease Congestive heart failure Social History marital status: household members: none Tobacco & Substance Use Smoking Status: Former smoker second hand exposure: No alcohol intake: current substance use type: does not use Assessment & Plan Assessment & Plan narrative: # undifferentiated shock -BP down to 83/37 coming out surgery, s/p 4L NS boluses in PACU -levophed via RIJ central line, now off vasopressin -echo to r/o cardiogenic, WBC normal and afebrile so doubt septic -appreciate teleICU consult -hold home BP meds -possibly due to hemorrhagic shock from blood loss during surgerr, Hgb dropped 3 pts postop -wean pressors as able -CTA chest to r/o obstructive shock from PE, as patient was off his eliquis for last 5 days # possible NSTEMI -troponin 0.264, likely from shock -will treat for 48 hours with heparin drip -trend trops # HFrEF -EF 40-45% previously in Sep 2023 -repeat limited echo to check EF -may need IV lasix following fluid boluses -hold home empagliflozin, lasix and aldactone # acute hypoxic resp failure -requiring 3L NC following surgery, normally on room air at baseline -CXR shows cardiomegaly and pulm edema -CTA chest to r/o PE # persistent AF -hold home eliquis until more stable -currently rate-controlled -tele # CAD s/p stent in 2008 -continue aspirin # HTN -holding BP meds for now # HLD -hold statin for now # BPH -major in place # GERD -pepcid IV BID I spent a total of 35 minutes of critical care time on this patient's care today; this time is exclusive of procedural time. Code status is full code. DVT prophylaxis with SCDs. Proxy is son who is POA. I have reviewed home meds and used all available resources to reconcile the home meds. Medicine will continue to follow. Thank you for allowing us to participate in the care of this patient. Should you have any questions, do not hesitate to speak with us directly or call us.
--- NOTE | 2023-12-06 14:31 | DI.ECHO.S_ITS ---
[facility]---------+ [facility] +---------+ : : [address] : : : : [id number] : : : : Phone: [phone]+ Echocardiogram Report + + :Name: ALEJO COWAN Study Date: 12/06/2023 Height: 65 in : :[facility] ReadingLocation: Weight: 197 lb : : Gender: Male BSA: 2.0 m2 : :: 1935 Age: 88 yrs BP: 139/67 mmHg: :Reason For Study: SHOCK : :Ordering Physician: LEROY, : :JONA Fragoso Performed By: Lyndon Acevedo : :Referring: JONA HARPER : + + Interpretation Summary TDS - POOR PLAX/SAX. HIGH RIGHT WINDOWS ON TODAY'S STUDY. Limited study. The patient was in atrial fibrillation with heart rates between 78-97 bpm during the exam. The left ventricle is grossly normal size. The left ventricular ejection fraction is normal. Left ventricular ejection fraction is estimated to be 60 +/- 5%. There are no focal wall motion abnormalities. Compared to the prior exam, the left ventricular function is improved. RV not well-visualized. However in subcostal view, mid to distal RV segments appears to be severely hypokinetic. Diminished RV function. RV function decreased from the previous study. Consider workup to rule out PE as well. Procedure: A two-dimensional transthoracic echocardiogram with color flow and Doppler was performed in limited views only. The study quality was technically difficult. Comparison is made with the echocardiogram of 10/04/2023. The patient was in atrial fibrillation with heart rates between 78-97 bpm during the exam. Left Ventricle: Left ventricular wall thickness is mildly increased. The left ventricle is grossly normal size. The left ventricular ejection fraction is normal. Left ventricular ejection fraction is estimated to be 60 +/- 5%. Compared to the prior exam, the left ventricular function is improved. There are no focal wall motion abnormalities. Right Ventricle: Not well-visualized. However in subcostal view, mid to distal RV segments appears to be severely hypokinetic. Diminished RV function. Mitral Valve: There is mild to moderate mitral annular calcification. The mitral valve leaflets are mildly calcified. There is mild mitral regurgitation. Tricuspid Valve: The tricuspid valve is normal. MMode/2D Measurements & Calculations LVIDd: 4.8 cm LVIDs: 3.8 cm FS: 20.8 % IVSd: 1.6 cm LVPWd: 1.4 cm LV mays. diameter/BSA (cm/m^2): 2.4 LV sys. diameter/BSA (cm/m^2): 1.9 Reading Physician:04:29 PM
[2023-12-06 14:47] LABS: Add Manual Diff / Slide Review NO; Basophils Absolute Auto 0 /uL (0-100); Eosinophils Absolute Auto 0 /uL (0-450); Hematocrit 26.7 % (41-53); Hemoglobin 8.9 g/dL (13.5-17.5); Lymphocytes Absolute Auto 200 /uL (1100-4500); Lymphocytes Percent Auto 1.8 % (25-40); Mean Corpuscular HGB Conc 33.5 % (30-36); Mean Corpuscular Hemoglobin 32.9 PG (26-34); Mean Corpuscular Volume 98.2 fL (80-100); Monocytes Absolute Auto 200 /uL (0-900); Neutrophils Absolute Auto 10000 /uL (1500-7000); Neutrophils Percent Auto 96.2 % (50-75); Platelet Count 107 X10^3/uL (150-400); Red Blood Cell Count 2.72 X10^6/uL (4.5-5.9); Red Cell Distribution Width 13.6 % (11.6-14.8); White Blood Cell Count 10.4 X10^3/uL (4.5-11.0)
[2023-12-06 15:01] LABS: Lactate (Lactic Acid) 1.1 mmol/L (0.7-2.1)
[2023-12-06 15:04] LABS: Alanine Aminotransferase 18 IU/L (<50); Albumin 3.6 g/dL (3.5-5.0); Albumin Globulin Ratio 1.6 (1.0-2.8); Alkaline Phosphatase 36 U/L (38-126); Aspartate Aminotransferase 21 IU/L (17-59); BUN Creatinine Ratio 30.8 (6-22); Bilirubin Total 0.5 mg/dL (0.2-1.3); Blood Urea Nitrogen 32 mg/dL (9-20); Calcium 7.5 mg/dL (8.4-10.2); Carbon Dioxide 19 mmol/L (22-32); Chloride 108 mmol/L (98-107); Estimated Glomerular Filt Rate > 60 mL/min (>60); Globulin 2.2 g/dL (1.7-4.1); Glucose 173 mg/dL (80-110); HEMOLYSIS < 15 (0-50); Potassium 4.6 mmol/L (3.4-5.1); Sodium 136 mmol/L (137-145); Total Protein 5.8 g/dL (6.3-8.2)
[2023-12-06 15:11] LABS: NT-proBNP (BNP-Adult 18+) 1080 pg/mL (<450)
[2023-12-06 15:18] LABS: Procalcitonin 0.08 ng/mL (<0.5)
[2023-12-06 15:37] LABS: Troponin I 0.264 ng/mL (0.01-0.034)
--- NOTE | 2023-12-06 15:45 | PT-IP ANOTE ---
Pt up in the later p.m. post-op THELMA. Notes reflect shock and other complications during surgery and he has been moved up to the ICU. Will initiate PT consult next date as appropriate.
--- NOTE | 2023-12-06 15:45 | OT.IPNOTE ---
Pt now in ICU after R THELMA and to check on the pt tomorrow for OT eval .
--- NOTE | 2023-12-06 16:09 | P.TELICUCN_ITS ---
History of Present Illness Consult details IF CAMERA ACTIVATED, patient seen via real-time interactive audiovisual communication: Camera activated Chief complaint: Right Total Hip Arthroplasty/Anterior Consent obtained for tele-commercial lines underwriter care: Yes Patient Location: ICU Provider location (State): [place] Other participants/roles: Dr. Miles, Bedside Nurse Narrative: Kenneth Ward Jr is a 88yo M with PMH of HFrEF of 40-45% in Sep 2023, CAD s/p stent in 2008, HTN, HLD, persistent A-fib on eliquis, NSVT, obesity, TIA, GERD, BPH, and SEAN on bipap who presents post-op from R total hip surgery with undifferentiated shock. Medicine consulted for management. give ivf, albumin in pacu with pressors responded well now in ICU with pressor requirements decreasing PFSH Medical History History of COVID-19 Peripheral neuropathy Waters's palsy Depression TIA (transient ischemic attack) Memory changes SEAN treated with BiPAP Myocardial infarction (12/2006) Class 1 obesity due to excess calories with body mass index (BMI) of 31.0 to 31.9 in adult Pre-diabetes Gastric reflux Protein-calorie malnutrition, mild Anemia Chronic anticoagulation Acute GI bleeding Headache Hx of myocardial infarction (Unknown) Hypertension (Unknown) Lumbar disc disease (2012) Polio (1950) Chickenpox Measles Hearing loss (2014) Coronary artery disease (2008) Prostate cancer (2008) Peripheral polyneuropathy (03/06/17) Left foot drop (03/06/17) Vitamin D deficiency (11/21/16) Gastroesophageal reflux disease (06/13/16) Statin intolerance (02/08/16) Spinal stenosis of lumbar region (02/08/16) Pure hypercholesterolemia (02/08/16) History of malignant neoplasm of prostate (04/08/15) Essential hypertension (02/08/16) Coronary artery disease involving menominee coronary artery of menominee heart without angina pectoris (02/08/16) Balance problems (02/08/16) Surgical History Hx of heart artery stent (12/2006) History of prostate surgery (2009) Status post laminectomy Family History Father No problems noted. Mother Cancer Grandfather No problems noted. Grandmother No problems noted. Grandfather No problems noted. Grandmother Cancer Family/Other Stroke Heart attack Coronary artery disease Congestive heart failure Social History marital status: household members: none Smoking Status: Former smoker second hand exposure: No alcohol intake: current substance use type: does not use Current Medications Current Medications Medications: Home Medications CoQ-10 400 mg PO QPM ##0 11/21/16 [History Confirmed 12/03/23] ascorbic acid (vitamin C) 500 mg tablet 500 mg PO DAILY ##0 11/21/16 [History Confirmed 12/03/23] tamsulosin 0.4 mg capsule (Flomax) 0.8 mg PO QPM ##0 11/21/16 [History Confirmed 12/06/23] [VITAMIN K2] 100 mcg PO QPM ##0 03/06/17 [History Confirmed 12/03/23] alpha lipoic acid 600 mg capsule 600 mg PO BEDTIME 12/11/18 [History Confirmed 12/03/23] apixaban 5 mg tablet (Eliquis) 5 mg PO BID 10/26/20 [History Confirmed 12/03/23] amlodipine 10 mg tablet 5 mg PO BEDTIME 02/20/22 [History Confirmed 12/03/23] ResMed AirSense Auto 03/27/22 [History Confirmed 12/03/23] Vitamin D3 See Rx Instructions PO DAILY 06/13/22 [History Confirmed 12/03/23] nitroglycerin 0.4 mg sublingual tablet 0.4 mg sublingual Q5-15M PRN Chest Pain #20 tabs 03/02/23 [Rx Confirmed 12/03/23] gabapentin 300 mg capsule 900 mg (3 x 300 mg) PO BID #360 caps 05/01/23 [Rx Confirmed 12/03/23] empagliflozin 10 mg tablet (Jardiance) 10 mg PO BEDTIME 08/29/23 [History Confirmed 12/03/23] furosemide 20 mg tablet (Lasix) 40 mg PO DAILY PRN Edema 08/29/23 [History Confirmed 12/03/23] lisinopril 20 mg tablet 10 mg PO QPM 08/29/23 [History Confirmed 12/03/23] spironolactone 25 mg tablet 25 mg PO DAILY 08/29/23 [History Confirmed 12/06/23] baclofen 5 mg tablet 5 mg PO BID PRN muscle spasm #60 tabs 10/09/23 [Rx Confirmed 12/06/23] rosuvastatin 5 mg tablet (Crestor) 10 mg (2 x 5 mg) PO .COMPLEX #135 tabs 10/09/23 [Rx Confirmed 12/03/23] dulaglutide 0.75 mg/0.5 mL subcutaneous pen injector (Trulicity) 0.75 mg (0.5 mL) SUBCUT QWEEK #2 mL 11/01/23 [Rx Confirmed 12/06/23] ondansetron 4 mg disintegrating tablet 4 mg PO Q8H PRN nausea and vomiting #30 tabs 11/01/23 [Rx Confirmed 12/06/23] venlafaxine 37.5 mg capsule,extended release 24 hr 75 mg (2 x 37.5 mg) PO BEDTIME #180 caps 11/08/23 [Rx Confirmed 12/03/23] trospium 20 mg tablet 20 mg PO BID 11/12/23 [History Confirmed 12/06/23] metoclopramide HCl 10 mg tablet (Reglan) 10 mg PO QID 30 days #120 tabs 12/03/23 [Rx Confirmed 12/06/23] omeprazole 20 mg capsule,delayed release 20 mg PO BID #180 caps 12/03/23 [Rx Confirmed 12/06/23] amlodipine 5 mg tablet 5 mg PO DAILY 12/06/23 [History] lisinopril 10 mg tablet 10 mg PO DAILY 12/06/23 [History] venlafaxine 25 mg tablet 25 mg PO DAILY 12/06/23 [History] venlafaxine 50 mg tablet 50 mg PO DAILY 12/06/23 [History] Visit Medications (administered) Generic Name Dose Route Start Last Admin Trade Name Freq PRN Reason Stop Dose Admin Acetaminophen 650 mg 12/06/23 14:40 12/06/23 15:43 Acetaminophen 325 Mg Tablet PO Not Given Q6H ALLI Sodium Chloride 1,000 mls @ 84 mls/hr 12/06/23 11:11 12/06/23 15:31 Normal Saline 0.9% IV 12/06/23 23:05 Infused NOW ONE Infusion NOREPINEPHRINE BITARTRATE/D5W 4 mg in 250 mls @ 33.509 mls/hr 12/06/23 12:11 12/06/23 15:19 Levophed IV 0.04 mcg/kg/min TITRATE ALLI 15 mls/hr Titration Protocol 0.1 MCG/KG/MIN Insulin Human Lispro 0 unit 12/06/23 14:40 12/06/23 15:06 Insulin Lispro 100 Unit/Ml 3ml Vial SUBCUT Not Given ACHS [facility] Protocol Exam Vital Signs (past 8 hours): - 12/06/23 10:48 12/06/23 10:53 12/06/23 10:58 Temperature 97 F L Pulse Rate 70 68 71 Respiratory Rate 15 14 14 Blood Pressure 83/49 L 93/73 92/46 L Pulse Oximetry 97 97 96 Oxygen Delivery Method Room Air Nasal Cannula Nasal Cannula Oxygen Flow Rate 12/06/23 11:15 12/06/23 11:28 12/06/23 11:56 Temperature Pulse Rate 73 70 78 Respiratory Rate 16 16 14 Blood Pressure 101/48 L 99/51 L 83/37 L Pulse Oximetry 97 95 97 Oxygen Delivery Method Nasal Cannula Room Air Nasal Cannula Oxygen Flow Rate 12/06/23 12:13 12/06/23 12:30 12/06/23 12:53 Temperature Pulse Rate 104 H 89 91 H Respiratory Rate 22 15 16 Blood Pressure 115/47 L 115/47 L Pulse Oximetry 99 98 97 Oxygen Delivery Method Nasal Cannula Nasal Cannula Nasal Cannula Oxygen Flow Rate 2 2 2 12/06/23 13:00 12/06/23 13:22 12/06/23 13:39 Temperature Pulse Rate 91 H 91 H 89 Respiratory Rate 14 15 14 Blood Pressure 93/39 L 116/76 135/58 L Pulse Oximetry 100 100 100 Oxygen Delivery Method Nasal Cannula Nasal Cannula Nasal Cannula Oxygen Flow Rate 2 2 3 12/06/23 14:10 12/06/23 14:24 Temperature Pulse Rate 84 89 Respiratory Rate 14 19 Blood Pressure 127/63 139/67 Pulse Oximetry 100 94 Oxygen Delivery Method Nasal Cannula Nasal Cannula Oxygen Flow Rate 3 3 Oxygen Delivery Method Nasal Cannula Oxygen Flow Rate 3 Objective Labs 12/06/23 14:15 12/06/23 14:15 Labs: Laboratory Results - last 24 hr 12/06/23 12/06/23 11:15 14:15 WBC 10.4 RBC 2.72 L Hgb 12.0 L 8.9 L Hct 36.5 L 26.7 L MCV 98.2 MCH 32.9 MCHC 33.5 RDW 13.6 Plt Count 107 L Neut % (Auto) 96.2 H Lymph % (Auto) 1.8 L Bracken % (Auto) 2.0 L Eos % (Auto) 0.0 L Baso % (Auto) 0.0 Neut # (Auto) 10780 H Lymph # (Auto) 200 L Bracken # (Auto) 200 Eos # (Auto) 0 Baso # (Auto) 0 Sodium 136 L Potassium 4.6 Chloride 108 H Carbon Dioxide 19 L BUN 32 H Creatinine 1.04 Estimated GFR > 60 BUN/Creatinine Ratio 30.8 H Glucose 173 H Lactate 1.1 Calcium 7.5 L Magnesium 2.0 Total Bilirubin 0.5 AST 21 ALT 18 Alkaline Phosphatase 36 L Troponin I 0.264 H* NT-Pro-B Natriuret Pep 1080 H Total Protein 5.8 L Albumin 3.6 Globulin 2.2 Albumin/Globulin Ratio 1.6 Procalcitonin 0.08 Blood Type A Positive Antibody Screen Negative Assessment & Plan Assessment & Plan narrative: 88 year old male admitted to ICU with Shock, unlcear etiology, likley hemmorrhage/hypovolemic s/p ORIF HIP CHF AFIB suggest -pain control, minimize opiod use -neurochecks/seizure precautions -keep sat abovd 92% -keep map above 65, wean pressors -serial ekg/trop -check echo -serial cbc/coags -transfuse blood products prn -dickinson cxs -broad spec abx -stress dose steroids -monitor ins/outs -replace lytes prn -gi/dvt ppx, hold full ac -keep glucose 140-180s -please call eICU if condition changes total ccm time 45 mins.
[2023-12-06 16:22] LABS: Appearance Urine UA CLEAR; Bilirubin Urine UA NEGATIVE (NEGATIVE); Color Urine UA YELLOW; Glucose Urine UA 2+ g/dL (Negative); Ketones Urine UA 1+ (NEGATIVE); Leukocyte Esterase Urine UA NEGATIVE (NEGATIVE); Nitrite Urine UA NEGATIVE (Negative); Occult Blood Urine UA TRACE-INTACT (Negative); Protein Urine UA NEGATIVE (Negative); Specific Gravity Urine UA 1.025 (1.000-1.035); Urobilinogen Urine UA 0.2 E.U./dL (0.2)
[2023-12-06 16:30] LABS: Urine Volume 10mL (spun)
[2023-12-06 16:33] LABS: Bacteria Urine Occasional (0-1); RBC Urine 0-1/HPF (0-5/HPF); WBC Urine None Seen (0-5/HPF)
[2023-12-06 16:34] LABS: Culture Indicated Urine Cult Not Indicated; Mucus Urine 1+ (Negative); Squamous Epithelial Cell Urine 0-1 /HPF (0-5/HPF); Transitional Epi Cells Urine 0-1/HPF (0-5/HPF)
--- NOTE | 2023-12-06 16:35 | DI.CT.S_ITS ---
PROCEDURE: CT ANGIO CHEST PE PROTOCOL INDICATIONS: r/o PE TECHNIQUE: After the administration of intravenous contrast, 2 mm thick sections acquired from the pulmonary apices to the posterior costophrenic angles. 3-dimensional maximum intensity projection (MIP) coronal and sagittal reformats were then acquired through the thorax. For radiation dose reduction, the following was used: automated exposure control, adjustment of mA and/or kV according to patient size. COMPARISON: [facility], CT, CT ANGIO CHEST PE PROTOCOL, 10/20/2020, 13:03. FINDINGS: Image quality: Diagnostic. Pulmonary arteries: Mildly dilated main pulmonary artery measuring 3.4 cm. No intraluminal filling defects to suggest central pulmonary embolism. Lower Neck: No enlarged lymph nodes. Thyroid: No thyroid nodules which require sonographic follow up, per consensus guidelines. Axillae: No enlarged lymph nodes. Chest Wall: Unremarkable. Bones: Degenerative changes of the spine. Lungs and Pleura: Trace bilateral effusions with adjacent atelectasis versus consolidation. Scattered ground-glass opacities within the right middle and lower lobes Heart: Heart size is enlarged. Severe coronary artery calcifications. No pericardial effusion. Thoracic Vessels: No aortic aneurysm. Mediastinum and Joceline: No enlarged lymph nodes. Esophagus: No wall thickening. Small hiatal hernia. Upper Abdomen: Nodular appearing contour to the liver, concerning for cirrhosis. Multiple splenic calcifications are noted. IMPRESSION: No pulmonary embolus. Scattered ground-glass opacities within the right middle and lower lobes, concerning for atypical pneumonia. Mildly dilated main pulmonary artery, suggestive of pulmonary hypertension. Cardiomegaly with severe coronary artery calcifications. Nodular contour to the liver, concerning for cirrhosis. Recommend clinical correlation. Dictated by: Samuel Pham M.D. on 12/06/2023 at 17:54 Approved by: Samuel Pham M.D. on 12/06/2023 at 17:59
[2023-12-06] MEDS: TAMSULOSIN 0.4 MG CAPSULE 0.8 MG PO (17:31)
[2023-12-06] MEDS: INSULIN LISPRO 100 UNIT/ML 3ML VIAL SUBCUT ×2 (17:32→21:14)
[2023-12-06] MEDS: HEPARIN 5,000 UNIT/ML VIAL 5000 UNIT IV (17:33)
[2023-12-06] MEDS: HEPARIN DRIP 25,000 UNIT/500 ML IV.SOLN 21.446 UNIT IV (17:34)
--- NOTE | 2023-12-06 18:00 | PM.PROC.1 ---
Procedures Date/Time Date of procedure: 12/06/23 Time of procedure: 13:30 Central Line Placement Time out performed: Yes Patient placed on monitor/pulse ox: Yes MD prep: mask, gown, gloves and other (cap) Central line prep: Chlorhexidine scrub and sterile drapes applied Local anesthesia used: lidocaine 1% (5 ml) Ultrasound used for placement: Yes Central line lumen inserted: triple ( 20 cm line) Post procedure: sutured in place, good blood return, all ports aspirated, flushed, capped and sterile dressing applied Post procedure x-ray: tip of catheter in good position and no pneumothorax seen Patient tolerated procedure: well Complications: hematoma at puncture site (Hematoma at puncture site of attempted R IJ. Second attempt in L IJ with no hematoma. ) Additional comments: Pt awake for procedure; lidocaine 1% used subcu along with fentanyl 25 mcg IV. Pt on O2 2L. Trendelenburg position. Pt was mildly confused postop with hypotension but in good spirits and followed commands. Central line requested due to high pressor requirement postop. After sterile prep and drape, R IJ seen well on initial ultrasound. + blood return but catheter slipped out and lost blood return. Following attempts on right side complicated by poor visibility of landmarks due to hematoma. Switched to left side. Landmarks visualized and +blood return, wire threaded. Difficulty using dilator. Required additional scalpel incision to clear tissue for dilator. Dilator used and then central line threaded easily over wire. All ports aspirated with blood return and flushed and capped. L IJ central line sutured into place at 19 cm. Postop CXR showed line in reasonably good position. Total EBL approximately [address] Casanova attempted R radial A-line but unable to obtain. Left radial pulse reportedly weaker, and pt had a significant tremor in that hand, so no attempt made there.
[2023-12-06 18:19] LABS: MRSA (Nasal) PCR Not Detected (Not Detect)
[2023-12-06] MEDS: PIPERACILLIN/TAZO 4.5 GM in SODIUM CHLORIDE 0.9% 100 ML IV (18:36)
--- NOTE | 2023-12-06 19:44 | PM.PN.1 ---
Subjective Subjective Interval history: Patient became significantly hypotensive postoperatively. He required pressors to maintain his blood pressure. An extensive lab panel was obtained which was essentially normal. 4 L of lactated ringers were administered as well as albumin. He had not become anemic as his hemoglobin remained normal at 8.9. Blood loss had not been more than typical for a total hip arthroplasty. Following administration of vasopressors through a central line he stabilized and has had decreasing vasopressor requirements throughout the afternoon as well as maintaining normal blood pressure. He has mentating at baseline throughout the entire afternoon. I have had extensive discussions with our instructor tap dancing as well as our anesthesia team. The consensus of the group has been that the fluid shifts associated with his total hip arthroplasty exceeded his cardiac systems ability to compensate which led to his hypotension. He has stabilized at this point. He is in the ICU. We will continue monitoring him closely. I do anticipate that given the amount of fluids he was administered to maintain his blood pressure, he may encounter some pulmonary edema and require diuresis. I will discuss this on an ongoing basis with the internal medicine team Exam Vital Signs (past 8 hours): - 12/06/23 11:56 12/06/23 12:13 12/06/23 12:30 Temperature Pulse Rate 78 104 H 89 Respiratory Rate 14 22 15 Blood Pressure 83/37 L 115/47 L Pulse Oximetry 97 99 98 Oxygen Delivery Method Nasal Cannula Nasal Cannula Nasal Cannula Oxygen Flow Rate 2 2 12/06/23 12:53 12/06/23 13:00 12/06/23 13:22 Temperature Pulse Rate 91 H 91 H 91 H Respiratory Rate 16 14 15 Blood Pressure 115/47 L 93/39 L 116/76 Pulse Oximetry 97 100 100 Oxygen Delivery Method Nasal Cannula Nasal Cannula Nasal Cannula Oxygen Flow Rate 2 2 2 12/06/23 13:39 12/06/23 14:00 12/06/23 14:10 Temperature 98.2 F Pulse Rate 89 89 84 Respiratory Rate 14 18 14 Blood Pressure 135/58 L 139/68 127/63 Pulse Oximetry 100 96 100 Oxygen Delivery Method Nasal Cannula Nasal Cannula Oxygen Flow Rate 3 0 3 12/06/23 14:24 12/06/23 16:00 12/06/23 17:00 Temperature 98.0 F 98.0 F Pulse Rate 89 80 107 H Respiratory Rate 19 18 18 Blood Pressure 139/67 138/70 127/59 L Pulse Oximetry 94 96 97 Oxygen Delivery Method Nasal Cannula Oxygen Flow Rate 3 0 0 Oxygen Delivery Method Nasal Cannula Oxygen Flow Rate 0 Objective Labs 12/06/23 14:15 12/06/23 14:15 Labs: Laboratory Results - last 24 hr 12/06/23 12/06/23 12/06/23 11:15 13:45 14:15 WBC 10.4 RBC 2.72 L Hgb 12.0 L 8.9 L Hct 36.5 L 26.7 L MCV 98.2 MCH 32.9 MCHC 33.5 RDW 13.6 Plt Count 107 L Neut % (Auto) 96.2 H Lymph % (Auto) 1.8 L [place] % (Auto) 2.0 L Eos % (Auto) 0.0 L Baso % (Auto) 0.0 Neut # (Auto) 69372 H Lymph # (Auto) 200 L [place] # (Auto) 200 Eos # (Auto) 0 Baso # (Auto) 0 Sodium 136 L Potassium 4.6 Chloride 108 H Carbon Dioxide 19 L BUN 32 H Creatinine 1.04 Estimated GFR > 60 BUN/Creatinine Ratio 30.8 H Glucose 173 H Lactate 1.1 Calcium 7.5 L Magnesium 2.0 Total Bilirubin 0.5 AST 21 ALT 18 Alkaline Phosphatase 36 L Troponin I 0.264 H* NT-Pro-B Natriuret Pep 1080 H Total Protein 5.8 L Albumin 3.6 Globulin 2.2 Albumin/Globulin Ratio 1.6 Procalcitonin 0.08 Urine Color Yellow Urine Appearance Clear Urine pH 5.0 Ur Specific [place] 1.025 Urine Protein Negative Urine Glucose (UA) 2+ H Urine Ketones 1+ H Urine Occult Blood Trace-intact Urine Nitrate Negative Urine Bilirubin Negative Urine Urobilinogen 0.2 Ur Leukocyte Esterase Negative Urine RBC 0-1/hpf Urine WBC None seen Ur Squamous Epith Cells 0-1 /hpf Ur Transition Epith Cell 0-1/hpf Urine Bacteria Occasional (0-1) Urine Mucus 1+ H Ur Culture Indicated? Cult not indicated Vol Urine Centrifuged 10ml (spun) Nasal Screen MRSA (PCR) Blood Type A Positive Antibody Screen Negative 12/06/23 15:03 WBC RBC Hgb Hct MCV MCH MCHC RDW Plt Count Neut % (Auto) Lymph % (Auto) [place] % (Auto) Eos % (Auto) Baso % (Auto) Neut # (Auto) Lymph # (Auto) [place] # (Auto) Eos # (Auto) Baso # (Auto) Sodium Potassium Chloride Carbon Dioxide BUN Creatinine Estimated GFR BUN/Creatinine Ratio Glucose Lactate Calcium Magnesium Total Bilirubin AST ALT Alkaline Phosphatase Troponin I NT-Pro-B Natriuret Pep Total Protein Albumin Globulin Albumin/Globulin Ratio Procalcitonin Urine Color Urine Appearance Urine pH Ur Specific [place] Urine Protein Urine Glucose (UA) Urine Ketones Urine Occult Blood Urine Nitrate Urine Bilirubin Urine Urobilinogen Ur Leukocyte Esterase Urine RBC Urine WBC Ur Squamous Epith Cells Ur Transition Epith Cell Urine Bacteria Urine Mucus Ur Culture Indicated? Vol Urine Centrifuged Nasal Screen MRSA (PCR) Not detected Blood Type Antibody Screen [facility] Medical History History of COVID-19 Peripheral neuropathy Waters's palsy Depression TIA (transient ischemic attack) Memory changes SEAN treated with BiPAP Myocardial infarction (12/2006) Class 1 obesity due to excess calories with body mass index (BMI) of 31.0 to 31.9 in adult Pre-diabetes Gastric reflux Protein-calorie malnutrition, mild Anemia Chronic anticoagulation Acute GI bleeding Headache Hx of myocardial infarction (Unknown) Hypertension (Unknown) Lumbar disc disease (2012) Polio (1950) Chickenpox Measles Hearing loss (2014) Coronary artery disease (2008) Prostate cancer (2008) Peripheral polyneuropathy (03/06/17) Left foot drop (03/06/17) Vitamin D deficiency (11/21/16) Gastroesophageal reflux disease (06/13/16) Statin intolerance (02/08/16) Spinal stenosis of lumbar region (02/08/16) Pure hypercholesterolemia (02/08/16) History of malignant neoplasm of prostate (04/08/15) Essential hypertension (02/08/16) Coronary artery disease involving [place] coronary artery of [place] heart without angina pectoris (02/08/16) Balance problems (02/08/16) Surgical History Hx of heart artery stent (12/2006) History of prostate surgery (2009) Status post laminectomy Family History Father No problems noted. Mother Cancer Grandfather No problems noted. Grandmother No problems noted. Grandfather No problems noted. Grandmother Cancer Family/Other Stroke Heart attack Coronary artery disease Congestive heart failure Social History marital status: household members: none Smoking Status: Former smoker second hand exposure: No alcohol intake: current substance use type: does not use Quality VTE Deep Vein Thrombosis/Pulmonary Embolism Present on Admission: No
[2023-12-06 20:31] LABS: Troponin I 0.214 ng/mL (0.01-0.034)
--- NOTE | 2023-12-06 20:39 | PM.ICURNDS ---
- Date Patient Seen: 12/06/23 Time Patient Seen: 20:39 :: This patient was seen via real time interactive two-way audiovisual telecommunication. Note: pt denies complaints, no chest pain/sob almost of levo, will continue to wean goal map 65 adequate urine output will check cbc/coags now no current signs of active bleeding please call eICU if condition changes
[2023-12-06] MEDS: DOXYCYCLINE HYCLATE 100 MG TABLET PO (21:15)
[2023-12-06] MEDS: ATORVASTATIN 20 MG TABLET PO (21:15)
[2023-12-06] MEDS: DOCUSATE 100 MG CAPSULE PO (21:15)
[2023-12-06] MEDS: PANTOPRAZOLE DR 20 MG TABLET PO (21:15)
[2023-12-06] MEDS: VENLAFAXINE ER 37.5 MG CAP 75 MG PO (21:15)
[2023-12-06] MEDS: FAMOTIDINE 20 MG/2 ML VIAL IV (21:15)
[2023-12-06] MEDS: ACETAMINOPHEN 325 MG TABLET 650 MG PO (21:16)
[2023-12-06] MEDS: METOCLOPRAMIDE HCL 5 MG TABLET 10 MG PO (21:16)
[2023-12-06] MEDS: GABAPENTIN 300 MG CAPSULE 900 MG PO (21:16)
[2023-12-06] MEDS: PIPERACILLIN/TAZO 3.375 GM in SODIUM CHLORIDE 0.9% 100 ML IV (21:55)
[2023-12-06 23:00] LABS: Add Manual Diff / Slide Review NO; Basophils Absolute Auto 100 /uL (0-100); Basophils Percent Auto 0.9 % (0-2); Eosinophils Absolute Auto 0 /uL (0-450); Hematocrit 23.5 % (41-53); Hemoglobin 7.9 g/dL (13.5-17.5); Lymphocytes Absolute Auto 400 /uL (1100-4500); Lymphocytes Percent Auto 3.2 % (25-40); Mean Corpuscular HGB Conc 33.7 % (30-36); Mean Corpuscular Hemoglobin 32.8 PG (26-34); Mean Corpuscular Volume 97.5 fL (80-100); Monocytes Absolute Auto 600 /uL (0-900); Monocytes Percent Auto 5.6 % (3-14); Neutrophils Absolute Auto 10100 /uL (1500-7000); Neutrophils Percent Auto 90.3 % (50-75); Platelet Count 100 X10^3/uL (150-400); Red Blood Cell Count 2.41 X10^6/uL (4.5-5.9); Red Cell Distribution Width 13.4 % (11.6-14.8); White Blood Cell Count 11.2 X10^3/uL (4.5-11.0)
[2023-12-06 23:13] LABS: INR 1.3 (0.9-1.3); Prothrombin Time 14.4 SECONDS (9.4-12.5)
[2023-12-06 23:19] LABS: Alanine Aminotransferase 20 IU/L (<50); Albumin 3.1 g/dL (3.5-5.0); Albumin Globulin Ratio 1.3 (1.0-2.8); Alkaline Phosphatase 35 U/L (38-126); Aspartate Aminotransferase 24 IU/L (17-59); BUN Creatinine Ratio 29.7 (6-22); Bilirubin Total 0.3 mg/dL (0.2-1.3); Blood Urea Nitrogen 33 mg/dL (9-20); Calcium 7.7 mg/dL (8.4-10.2); Carbon Dioxide 21 mmol/L (22-32); Chloride 105 mmol/L (98-107); Estimated Glomerular Filt Rate > 60 mL/min (>60); Globulin 2.4 g/dL (1.7-4.1); Glucose 186 mg/dL (80-110); HEMOLYSIS < 15 (0-50); Potassium 5.3 mmol/L (3.4-5.1); Sodium 131 mmol/L (137-145); Total Protein 5.5 g/dL (6.3-8.2)
[2023-12-06 23:25] LABS: PTT Partial Thromboplastin Tim 91 SECONDS (25.1-36.5)
[2023-12-07] VITALS (35 sets, daily range): BP systolic 94–119; BP diastolic 49–59; PULSE 57–111; RESP 16–45; TEMP 35.8–36.8; O2SAT 92–98
[2023-12-07 00:35] LABS: Troponin I 0.228 ng/mL (0.01-0.034)
[2023-12-07] MEDS: CEFAZOLIN 2 GM/100 ML PREMIX 100 ML IV (01:10)
[2023-12-07] MEDS: PIPERACILLIN/TAZO 3.375 GM in SODIUM CHLORIDE 0.9% 100 ML IV ×3 (06:24→22:36)
[2023-12-07 06:49] LABS: Add Manual Diff / Slide Review NO; Basophils Absolute Auto 0 /uL (0-100); Basophils Percent Auto 0.2 % (0-2); Eosinophils Absolute Auto 0 /uL (0-450); Eosinophils Percent Auto 0.1 % (2-4); Hematocrit 22.8 % (41-53); Hemoglobin 7.8 g/dL (13.5-17.5); Lymphocytes Absolute Auto 900 /uL (1100-4500); Lymphocytes Percent Auto 8.2 % (25-40); Monocytes Absolute Auto 900 /uL (0-900); Monocytes Percent Auto 8.5 % (3-14); Neutrophils Absolute Auto 8800 /uL (1500-7000); Platelet Count 93 X10^3/uL (150-400); Red Blood Cell Count 2.35 X10^6/uL (4.5-5.9); Red Cell Distribution Width 13.6 % (11.6-14.8); White Blood Cell Count 10.6 X10^3/uL (4.5-11.0)
[2023-12-07 07:11] LABS: HEMOLYSIS < 15 (0-50)
[2023-12-07 07:32] LABS: PTT Partial Thromboplastin Tim 58 SECONDS (25.1-36.5)
[2023-12-07 07:37] LABS: BUN Creatinine Ratio 30.1 (6-22); Blood Urea Nitrogen 34 mg/dL (9-20); Carbon Dioxide 21 mmol/L (22-32); Estimated Glomerular Filt Rate > 60 mL/min (>60); Potassium 4.6 mmol/L (3.4-5.1)
[2023-12-07 07:53] LABS: Troponin I 0.254 ng/mL (0.01-0.034)
[2023-12-07 08:02] LABS: Calcium 7.6 mg/dL (8.4-10.2); Chloride 107 mmol/L (98-107); Glucose 135 mg/dL (80-110); Sodium 134 mmol/L (137-145)
[2023-12-07] MEDS: ASCORBIC ACID 500 MG TABLET PO (08:30)
[2023-12-07] MEDS: DOCUSATE 100 MG CAPSULE PO ×2 (08:30→21:29)
[2023-12-07] MEDS: GABAPENTIN 300 MG CAPSULE 900 MG PO ×2 (08:30→21:29)
[2023-12-07] MEDS: OXYBUTYNIN 5 MG ER TAB 10 MG PO (08:31)
[2023-12-07] MEDS: ACETAMINOPHEN 325 MG TABLET 650 MG PO ×2 (08:31→21:30)
[2023-12-07] MEDS: FAMOTIDINE 20 MG/2 ML VIAL IV (08:31)
[2023-12-07] MEDS: PANTOPRAZOLE DR 20 MG TABLET PO ×2 (08:31→21:29)
[2023-12-07] MEDS: DOXYCYCLINE HYCLATE 100 MG TABLET PO ×2 (08:31→21:29)
[2023-12-07] MEDS: APIXABAN 5 MG TABLET PO ×2 (09:15→21:31)
--- NOTE | 2023-12-07 11:00 | PT.IIE ---
Current Diagnoses Unilateral primary osteoarthritis, right hip (12/06/23) Surgery Performed Operation Date: 12/06/23 07:45 Actual Procedures p Total Hip Arthroplasty/Anterior Approach(Right) - Benny Heredia MD Surgical History (Last Reviewed 12/03/23 @ 08:13 by YOANDY Michaud) History of prostate surgery (2009) Hx of heart artery stent (12/2006) Status post laminectomy Medical History (Last Reviewed 12/03/23 @ 08:13 by YOANDY Michaud) Acute GI bleeding Anemia Balance problems (02/08/16) Waters's palsy Chickenpox Chronic anticoagulation Class 1 obesity due to excess calories with body mass index (BMI) of 31.0 to 31.9 in adult Coronary artery disease (2008) Coronary artery disease involving [place] coronary artery of [place] heart without angina pectoris (02/08/16) Depression Essential hypertension (02/08/16) Gastric reflux Gastroesophageal reflux disease (06/13/16) Headache Hearing loss (2014) History of COVID-19 History of malignant neoplasm of prostate (04/08/15) Hx of myocardial infarction (Unknown) Hypertension (Unknown) Left foot drop (03/06/17) Lumbar disc disease (2012) Measles Memory changes Myocardial infarction (12/2006) SEAN treated with BiPAP Peripheral neuropathy Peripheral polyneuropathy (03/06/17) Polio (1950) Pre-diabetes Prostate cancer (2008) Protein-calorie malnutrition, mild Pure hypercholesterolemia (02/08/16) Spinal stenosis of lumbar region (02/08/16) Statin intolerance (02/08/16) TIA (transient ischemic attack) Vitamin D deficiency (11/21/16) Physical Therapy Inpatient Evaluation/Re-Eval M1 PT/OT-IP Prior Functional Status Start: 12/07/23 13:44 Freq: NEEDED Status: Active Protocol: Document 12/07/23 11:00 AB (Rec: 12/07/23 14:01 AB [id number]) Medical Review Prior Functional Status Medical History Reviewed Yes Communication able to make needs known Mobility and Gait pt stated that he was modified independent with all mobilities and ambulation using a 4WW Social History Household Members none Living Arrangements House Number of Floors (Floors) Two Floors Number of Stairs To Enter/Railing? pt has access to an elevator to get into the house and ton 2nd level of the house Home Environment Standard Height Toilet,Built- In Shower Seat Home Equipment Front Wheel Walker,Four Wheel Walker,Hand Held Shower,Grab Bars In Shower Additional Social History Comment pt stated that his son /DIL lives next door and can assist him if needed pt has a walk in tub shower pt has a toilet safety frame pt is getting a hospital bed; pt current bed is high and HOB elevated up due to his GERD per pt. M2 PT-IP Current Condition Start: 12/07/23 13:44 Freq: NEEDED Status: Active Protocol: Document 12/07/23 11:00 AB (Rec: 12/07/23 14:01 AB [id number]) Physical Therapy Current Condition Current Condition Evaluation Date 12/07/23 Treatment Diagnosis s/p R THELMA anterior approach; difficulty in walking Onset Date 12/06/23 M3 PT-IP Subjective Start: 12/07/23 13:44 Freq: NEEDED Status: Active Protocol: Document 12/07/23 11:00 AB (Rec: 12/07/23 14:01 [id number]) Subjective Physical Therapy Visit Type Type Initial Evaluation Visit Start Time 11:00 Visit Stop Time 12:00 Number of [employer] Visits 0 Physical Therapy Visit Comments Patient Comments agreeable to do PT Therapy Pain Assessment Location right hip Scale Used pain scale not stated Pain Management Techniques Distraction,Modification of Treatment,Re-positioning, Timing of Activity with Medications M4 PT-IP Mobility and Gait Start: 12/07/23 13:44 Freq: NEEDED Status: Active Protocol: Document 12/07/23 11:00 AB (Rec: 12/07/23 14:01 [id number]) PT-Bed Mobility Assessment Supine to Sit Supine to Sit Maximum Assistance,1 Person Assistance,2 Person Assistance PT-Transfer Assessment Sit to and From Stand Sit to and from Stand Maximum Assistance,1 Person Assistance,Use of Upper Extremities Equipment Transfer Assistive Device Gait Belt,Front Wheeled Walker Orthotic/Prosthetic Devices or Brace: No Transfers Transfer Destination Chair Transfer Technique ambulated Transfer Ability Level of Assist Moderate Assistance,Maximum Assistance,1 Person Assistance ,Use of Upper Extremities Comments Mobility Comments pt supine in bed and agreeable to do PT. obtained PLOf and home set up from pt. post-op folder provided and reviewed contents. educated pt regarding R anterior hip precautions. completed supine to sit max A x 1-2 and max cues. able to sit on EOB CGA. no c/o dizziness/lightheadedness. completed sit to stand max A and max cues and ambulated in room using FWW mod to max A and cues ~ 15 ft. presents with antalgic gait with decrease step length and LE clearance from the floor. pt has R food drop and with increase R ER. pt agreed to sit on the chair. positioned pt on the chair. call light and table placed within reach. Gait Assessment Gait Gait Assistance Required: Moderate Assistance,Maximum Assistance Distance (Feet) 15 Able to Maintain Weight Bearing Status Yes During Gait Assistive Devices Assistive Device Gait Belt,Front Wheeled Walker Orthotic/Prosthetic Devices or Brace: No Gait Deviations General Gait Pattern Antalgic,Decreased Feet Clearance Factors Limiting Gait Function Factors Limiting Gait Function Decreased Activity Tolerance, Decreased Strength,Difficulty Following Directions,Limited Range of Motion,Pain,Poor Balance,Poor Safety Awareness PT-Balance Assessment Sitting Balance and Reactions Static Sitting Balance Ability Good Dynamic Sitting Balance Ability Fair Standing Balance and Reactions Static Standing Balance Ability Fair Dynamic Standing Balance Ability Fair M5 PT-IP Objective Assessments Start: 12/07/23 13:44 Freq: NEEDED Status: Active Protocol: Document 12/07/23 11:00 AB (Rec: 12/07/23 14:01 AB [id number]) Orientation Orientation/Cognition Level of Alertness Alert Orientation Name,Place,Situation Safety Awareness Decreased Safety Awareness Memory Description No Deficits Noted Gross Range of Motion Lower Extremity ROM Assessment Within Functional Limits Strength Lower Extremity Strength Assessment Bilaterally Impaired Comments Strength Comments RLE: 3+/5 LLE: 4-/5 except L ankle: 2/5 Sensation Assessment Sensation Sensation Description Numbness Comments Sensation Comments LLE neuropathy per pt Muscle Tone Muscle Tone WNL Yes M6 PT-IP Treatment Start: 12/07/23 13:44 Freq: NEEDED Status: Active Protocol: Document 12/07/23 11:00 AB (Rec: 12/07/23 14:01 AB [id number]) Physical Therapy Treatment Education Education Provided Precautions,Weight Bearing Status,Post-Op Packet,Safety M7 PT-IP Assessment and Plan Start: 12/07/23 13:44 Freq: NEEDED Status: Active Protocol: Document 12/07/23 11:00 AB (Rec: 12/07/23 14:01 AB [id number]) PT Summary Assessment and Plan Potential Rehabilitation Potential Fair Status of Condition at Evaluation Evolving Summary Impairments Pain,ROM,Strength,Balance, Coordination,Sensation,Tone, Cognition,Bed Mobility, Transfers,Gait,Activity Tolerance Assessment Summary pt is an 88 y/o M s/p R THELMA anterior approach POD 1. pt with R anterior hip precautions and is WBAT. pt with episode of hypotension s/ p surgery. pt requiring max A 1-2 for bed mobility and max A for sit to stand/transfers and mod to max for ambulation using FWW. pt will require 24 /7 assist at this time and will benefit from SNF rehab. will continue to assess progress. Goals Bed Mobility Goal Minimal Assistance Transfer Goal Minimal Assistance,Front Wheeled Walker Gait Goal Minimal Assistance,Front Wheel Walker Gait Distance 50 Other Goals improve bed mobility, transfers, ambulation using FWW ~ 150 ft SBA Days to Meet Goals 5 Frequency of Treatment Frequency Of Treatment Twice a Day Treatment Plan Physical Therapy Treatment Plan Bed Mobility Training,Transfer Training,Gait Training, Therapeutic Exercise,Balance Retraining,Post Op Education, Discharge Planning,Hot or Cold Pack,Neuromuscular Re-ed, Coordination Retraining,Manual Therapy Precautions Anterior Hip Precautions No Hip Extension,No Hip External Rotation Weight Bearing Status Weight Bearing Status Weight Bear as Tolerated Allowed Weight Bearing Amount (enter % RLE WBAT or #) (%) Recommendations To Nursing Amount of Assist Needed 2 Person Assist Discharge Recommendations PT Discharge Recommendations SNF Rehab Transportation Needs at Discharge Wheelchair/Cabulance
--- NOTE | 2023-12-07 11:05 | PM.PNPO.1 ---
Subjective Subjective Interval history: Kenneth is a pleasant 88 year old male who is POD#1 s/p right THELMA by Dr. Heredia. Hospital course has been complicated by post-operative hypotension requiring fluid resuscitation with 4 L of lactated ringers as well as albumin. Pressors were required to maintain his blood pressure. An extensive lab panel was obtained post-operatively which was essentially normal. An echocardiogram was obtained yesterday as well which was unremarkable, CTA was ordered to r/o obstructive shock from PE, as patient was off his eliquis for last 5 days, this was negative. CXR ordered today reveals cardiomegaly but no pleural effusions or pneumothorax, alveolar edema resolved from yesterday. Today he reports 0 pain, is overall very pleased with his surgical outcome so far. He has an ice machine and walker for post-op use. He also used a walker pre-operatively due to ambulation difficulties due to hip pain. He has a known left foot drop prior to surgery, he states he has had chronic back issues and this is likely the cause of his left drop foot. Also reports some nueropathy likely related to spine degeneration and prostate radiation from prostate cancer treatment. Patient and his family feel d/c to SNF would be best plan for patient as he lives alone. He does have family near by for support if needed. He has outpatient PT set up with our office for therapy once he is d/c from SNF. Denies fever, chills, chest pain, shortness of breath, nausea, or vomiting. Exam Vital Signs (past 8 hours): - 12/07/23 03:30 12/07/23 04:00 12/07/23 04:30 Temperature 96.8 F L Pulse Rate 77 70 65 Respiratory Rate 18 17 16 Blood Pressure 98/55 L 106/54 L 96/53 L Pulse Oximetry 95 96 97 Oxygen Delivery Method Oxygen Flow Rate 0 0 0 12/07/23 05:00 12/07/23 05:30 12/07/23 06:00 Temperature Pulse Rate 71 64 66 Respiratory Rate 22 17 17 Blood Pressure 94/52 L 108/53 L 99/50 L Pulse Oximetry 96 97 94 Oxygen Delivery Method Oxygen Flow Rate 0 0 0 12/07/23 06:30 12/07/23 07:00 12/07/23 08:00 Temperature Pulse Rate 72 89 Respiratory Rate 18 26 H Blood Pressure 119/59 L 111/55 L Pulse Oximetry 92 98 Oxygen Delivery Method Room Air Oxygen Flow Rate 0 0 12/07/23 08:55 Temperature 98.0 F Pulse Rate Respiratory Rate Blood Pressure Pulse Oximetry Oxygen Delivery Method Oxygen Flow Rate Oxygen Delivery Method Room Air Oxygen Flow Rate 0 Narrative Exam Narrative: Lying comfortably in bed during our interview today. Son at bedside with patient. Resp Effort & Inspection: normal respiratory effort and able to speak in complete sentences Cardio Other: Pulses intact, brisk capillary refill, extremities appear well perfused. Regular rate. Stable blood pressure. Other: Dark urine/hematuria draining out of catheter into cath bag. Skin Other: Clean, dry, functioning hunter dressing intact over the right anterior hip. No drainage. Neuro Other: Gross sensation intact to bilateral lower extremities. Extrem Other: Grossly normal alignment, mild swelling to the right lower extremity. No significant ecchymosis surrounding the surgical site. 3/5 strength with left DF, PF, EHL. 5/5 strength wtih right DF, PF, EHL. Calf soft and nontender bilaterally. Psych Other: Patient has very positive and complementary mood today. Objective Labs 12/07/23 06:30 12/07/23 06:30 Labs: Laboratory Results - last 24 hr 12/06/23 12/06/23 12/06/23 11:15 13:45 14:15 WBC 10.4 RBC 2.72 L Hgb 12.0 L 8.9 L Hct 36.5 L 26.7 L MCV 98.2 MCH 32.9 MCHC 33.5 RDW 13.6 Plt Count 107 L Neut % (Auto) 96.2 H Lymph % (Auto) 1.8 L [place] % (Auto) 2.0 L Eos % (Auto) 0.0 L Baso % (Auto) 0.0 Neut # (Auto) 38677 H Lymph # (Auto) 200 L [place] # (Auto) 200 Eos # (Auto) 0 Baso # (Auto) 0 PT INR APTT Sodium 136 L Potassium 4.6 Chloride 108 H Carbon Dioxide 19 L BUN 32 H Creatinine 1.04 Estimated GFR > 60 BUN/Creatinine Ratio 30.8 H Glucose 173 H Lactate 1.1 Calcium 7.5 L Magnesium 2.0 Total Bilirubin 0.5 AST 21 ALT 18 Alkaline Phosphatase 36 L Troponin I 0.264 H* NT-Pro-B Natriuret Pep 1080 H Total Protein 5.8 L Albumin 3.6 Globulin 2.2 Albumin/Globulin Ratio 1.6 Procalcitonin 0.08 Urine Color Yellow Urine Appearance Clear Urine pH 5.0 Ur Specific [place] 1.025 Urine Protein Negative Urine Glucose (UA) 2+ H Urine Ketones 1+ H Urine Occult Blood Trace-intact Urine Nitrate Negative Urine Bilirubin Negative Urine Urobilinogen 0.2 Ur Leukocyte Esterase Negative Urine RBC 0-1/hpf Urine WBC None seen Ur Squamous Epith Cells 0-1 /hpf Ur Transition Epith Cell 0-1/hpf Urine Bacteria Occasional (0-1) Urine Mucus 1+ H Ur Culture Indicated? Cult not indicated Vol Urine Centrifuged 10ml (spun) Nasal Screen MRSA (PCR) Blood Type A Positive Antibody Screen Negative 12/06/23 12/06/23 12/06/23 15:03 18:15 22:50 WBC 11.2 H RBC 2.41 L Hgb 7.9 L Hct 23.5 L MCV 97.5 MCH 32.8 MCHC 33.7 RDW 13.4 Plt Count 100 L Neut % (Auto) 90.3 H Lymph % (Auto) 3.2 L [place] % (Auto) 5.6 Eos % (Auto) 0.0 L Baso % (Auto) 0.9 Neut # (Auto) 28656 H Lymph # (Auto) 400 L [place] # (Auto) 600 Eos # (Auto) 0 Baso # (Auto) 100 PT 14.4 H INR 1.3 APTT 91 H* Sodium 131 L Potassium 5.3 H Chloride 105 Carbon Dioxide 21 L BUN 33 H Creatinine 1.11 Estimated GFR > 60 BUN/Creatinine Ratio 29.7 H Glucose 186 H Lactate Calcium 7.7 L Magnesium Total Bilirubin 0.3 AST 24 ALT 20 Alkaline Phosphatase 35 L Troponin I 0.214 H* 0.228 H* NT-Pro-B Natriuret Pep Total Protein 5.5 L Albumin 3.1 L Globulin 2.4 Albumin/Globulin Ratio 1.3 Procalcitonin Urine Color Urine Appearance Urine pH Ur Specific [place] Urine Protein Urine Glucose (UA) Urine Ketones Urine Occult Blood Urine Nitrate Urine Bilirubin Urine Urobilinogen Ur Leukocyte Esterase Urine RBC Urine WBC Ur Squamous Epith Cells Ur Transition Epith Cell Urine Bacteria Urine Mucus Ur Culture Indicated? Vol Urine Centrifuged Nasal Screen MRSA (PCR) Not detected Blood Type Antibody Screen 12/07/23 06:30 WBC 10.6 RBC 2.35 L Hgb 7.8 L Hct 22.8 L MCV 97.0 MCH 33.0 MCHC 34.0 RDW 13.6 Plt Count 93 L Neut % (Auto) 83.0 H Lymph % (Auto) 8.2 L [place] % (Auto) 8.5 Eos % (Auto) 0.1 L Baso % (Auto) 0.2 Neut # (Auto) 8800 H Lymph # (Auto) 900 L [place] # (Auto) 900 Eos # (Auto) 0 Baso # (Auto) 0 PT INR APTT 58 H D Sodium 134 L Potassium 4.6 Chloride 107 Carbon Dioxide 21 L BUN 34 H Creatinine 1.13 Estimated GFR > 60 BUN/Creatinine Ratio 30.1 H Glucose 135 H Lactate Calcium 7.6 L Magnesium Total Bilirubin AST ALT Alkaline Phosphatase Troponin I 0.254 H* NT-Pro-B Natriuret Pep Total Protein Albumin Globulin Albumin/Globulin Ratio Procalcitonin Urine Color Urine Appearance Urine pH Ur Specific [place] Urine Protein Urine Glucose (UA) Urine Ketones Urine Occult Blood Urine Nitrate Urine Bilirubin Urine Urobilinogen Ur Leukocyte Esterase Urine RBC Urine WBC Ur Squamous Epith Cells Ur Transition Epith Cell Urine Bacteria Urine Mucus Ur Culture Indicated? Vol Urine Centrifuged Nasal Screen MRSA (PCR) Blood Type Antibody Screen [facility] Medical History History of COVID-19 Peripheral neuropathy Waters's palsy Depression TIA (transient ischemic attack) Memory changes SEAN treated with BiPAP Myocardial infarction (12/2006) Class 1 obesity due to excess calories with body mass index (BMI) of 31.0 to 31.9 in adult Pre-diabetes Gastric reflux Protein-calorie malnutrition, mild Anemia Chronic anticoagulation Acute GI bleeding Headache Hx of myocardial infarction (Unknown) Hypertension (Unknown) Lumbar disc disease (2012) Polio (1950) Chickenpox Measles Hearing loss (2014) Coronary artery disease (2008) Prostate cancer (2008) Peripheral polyneuropathy (03/06/17) Left foot drop (03/06/17) Vitamin D deficiency (11/21/16) Gastroesophageal reflux disease (06/13/16) Statin intolerance (02/08/16) Spinal stenosis of lumbar region (02/08/16) Pure hypercholesterolemia (02/08/16) History of malignant neoplasm of prostate (04/08/15) Essential hypertension (02/08/16) Coronary artery disease involving andreafski coronary artery of andreafski heart without angina pectoris (02/08/16) Balance problems (02/08/16) Surgical History Hx of heart artery stent (12/2006) History of prostate surgery (2009) Status post laminectomy Family History Father No problems noted. Mother Cancer Grandfather No problems noted. Grandmother No problems noted. Grandfather No problems noted. Grandmother Cancer Family/Other Stroke Heart attack Coronary artery disease Congestive heart failure Social History marital status: household members: none Smoking Status: Former smoker second hand exposure: No alcohol intake: current substance use type: does not use Assessment & Plan Post-op Postoperative Procedures: Procedures Operation Date: 12/06/23 07:45 Actual Procedure Side Surgeon p Total Hip Arthroplasty/Anterior Approach Right Benny Heredia MD Postoperative day: 1 Postoperative plan narrative: 1) Will work on mobility with PT during hospital stay to see if patient could be safely d/c to home but likely discharge to a SNF for initial recovery period prior to going home as patient lives alone and family feels most comfortable with this. 2) Continue multimodal pain management with ice to the hip for additional pain control. Patient has ice machine for at home post-op pain control. 3) Eliquis 5 mg b.i.d. for DVT prophylaxis beginning today. SCDs to be in place and functioning while patient is in bed. 4) Plan to work with physical therapy today to improve mobility and function. Outpatient physical therapy needed to work on range of motion and mobility after hospital discharge. Weightbearing as tolerated, maintain anterior hip precautions. 5) Keep dressing intact, clean, dry until 2 week postop appointment. No soaking the incision site and pools or tubs. No topical ointments or creams to the incision site. 5) Follow up at [facility] orthopedics in 2 weeks for a postop appointment and wound check. All patient's questions were answered, they demonstrates understanding and are in agreement with the plan. Call our office if any questions or concerns arise. Quality VTE Deep Vein Thrombosis/Pulmonary Embolism Present on Admission: No
--- NOTE | 2023-12-07 11:16 | DI.RAD.S_ITS ---
PROCEDURE: XR CHEST 1V INDICATIONS: concerns for fluid overload TECHNIQUE: One view of the chest was acquired. COMPARISON: [facility], CR, XR CHEST 1V, 12/06/2023, 14:04. [facility], CR, XR CHEST 2V, 11/13/2023, 8:31. FINDINGS: Surgical changes and devices: Central line from left-sided approach crosses the midline to the azygos arch area of the superior vena cava. Lungs and pleura: Lungs are improved from 1 day ago with resolution of alveolar edema pattern. No pleural effusions or pneumothorax. Mediastinum: Mediastinal contours appear normal. Heart size is improved from 1 day ago, slightly reduced in size, now only mildly enlarged. Bones and chest wall: No suspicious bony lesions. Overlying soft tissues appear unremarkable. IMPRESSION: Improving CHF pattern. Central line in normal position. Dictated by: Watson Dangelo M.D. on 12/07/2023 at 13:13 Approved by: Watson Dangelo M.D. on 12/07/2023 at 13:14
[2023-12-07 13:59] LABS: PTT Partial Thromboplastin Tim 51 SECONDS (25.1-36.5)
--- NOTE | 2023-12-07 14:40 | PT.IPTN ---
Current Diagnoses Unilateral primary osteoarthritis, right hip (12/06/23) Surgery Performed Operation Date: 12/06/23 07:45 Actual Procedures p Total Hip Arthroplasty/Anterior Approach(Right) - Benny Heredia MD Physical Therapy Treatment Note M2 PT-IP Current Condition Start: 12/07/23 13:44 Freq: NEEDED Status: Active Protocol: Document 12/07/23 11:00 AB (Rec: 12/07/23 14:01 AB [id number]) Physical Therapy Current Condition Current Condition Evaluation Date 12/07/23 Treatment Diagnosis s/p R THELMA anterior approach; difficulty in walking Onset Date 12/06/23 M3 PT-IP Subjective Start: 12/07/23 13:44 Freq: NEEDED Status: Active Protocol: Document 12/07/23 15:13 TS (Rec: 12/07/23 15:26 TS [id number]) Subjective Physical Therapy Visit Type Type Treatment Note Visit Start Time 14:40 Visit Stop Time 15:10 Number of AUTOMATIC STACKER Visits 1 Physical Therapy Visit Comments Patient Comments Pt agreeable to PT. M4 PT-IP Mobility and Gait Start: 12/07/23 13:44 Freq: NEEDED Status: Active Protocol: Document 12/07/23 15:13 TS (Rec: 12/07/23 15:26 TS [id number]) PT-Transfer Assessment Sit to and From Stand Sit to and from Stand Moderate Assistance,Maximum Assistance,1 Person Assistance ,Use of Upper Extremities Equipment Transfer Assistive Device Gait Belt,Front Wheeled Walker Orthotic/Prosthetic Devices or Brace: No Comments Mobility Comments BP in sitting 103/55. STS from chair ModA with FWW, pt required cues for pushing up from arms of chair. Pt ambulated ~15'Ami with FWW and some buckling of RLE, he required to sit in fodling chair for rest break. STS from chair MaxA with cues for sequencing. Pt ambulated back to bedside chair Ami for FWW management, continues to have some buckling on RLE. In chair pt performed knee flex/ext x10 on each LE. pt was left in chair, all needs met. Gait Assessment Gait Gait Assistance Required: Minimum Assistance Distance (Feet) 30 Able to Maintain Weight Bearing Status Yes During Gait Assistive Devices Assistive Device Gait Belt,Front Wheeled Walker Orthotic/Prosthetic Devices or Brace: No Gait Deviations General Gait Pattern Antalgic,Decreased Feet Clearance Factors Limiting Gait Function Factors Limiting Gait Function Decreased Activity Tolerance, Decreased Strength,Difficulty Following Directions,Limited Range of Motion,Pain,Poor Balance,Poor Safety Awareness Comments Gait Comments See mobility comments PT-Balance Assessment Sitting Balance and Reactions Static Sitting Balance Ability Good Dynamic Sitting Balance Ability Fair Standing Balance and Reactions Static Standing Balance Ability Fair Dynamic Standing Balance Ability Fair M5 PT-IP Objective Assessments Start: 12/07/23 13:44 Freq: NEEDED Status: Active Protocol: Document 12/07/23 11:00 AB (Rec: 12/07/23 14:01 AB [id number]) Orientation Orientation/Cognition Level of Alertness Alert Orientation Name,Place,Situation Safety Awareness Decreased Safety Awareness Memory Description No Deficits Noted Gross Range of Motion Lower Extremity ROM Assessment Within Functional Limits Strength Lower Extremity Strength Assessment Bilaterally Impaired Comments Strength Comments RLE: 3+/5 LLE: 4-/5 except L ankle: 2/5 Sensation Assessment Sensation Sensation Description Numbness Comments Sensation Comments LLE neuropathy per pt Muscle Tone Muscle Tone WNL Yes M6 PT-IP Treatment Start: 12/07/23 13:44 Freq: NEEDED Status: Active Protocol: Document 12/07/23 15:13 TS (Rec: 12/07/23 15:26 TS [id number]) Physical Therapy Treatment Education Education Provided Precautions,Weight Bearing Status,Post-Op Packet,Safety M7 PT-IP Assessment and Plan Start: 12/07/23 13:44 Freq: NEEDED Status: Active Protocol: Document 12/07/23 15:13 TS (Rec: 12/07/23 15:26 TS [id number]) PT Summary Assessment and Plan Potential Rehabilitation Potential Fair Summary Impairments Pain,ROM,Strength,Balance, Coordination,Sensation,Tone, Cognition,Bed Mobility, Transfers,Gait,Activity Tolerance Progress Towards Goals Progressing Toward Goals Assessment Summary Kenneth is making some progress with his mobility. He is Modx1 and MaxA x1 for STS. He progressed his gait to 2x15' with rest in chair in between due to his buckling of RLE and weakness. He demonstrates good awareness of his hip precautions. PT is recommending SNF at this time to progress functional mobility, strength and activity tolerance before safe d/c home. Goals Bed Mobility Goal Minimal Assistance Transfer Goal Minimal Assistance,Front Wheeled Walker Gait Goal Minimal Assistance,Front Wheel Walker Gait Distance 50 Other Goals improve bed mobility, transfers, ambulation using FWW ~ 150 ft SBA Days to Meet Goals 5 Frequency of Treatment Frequency Of Treatment Twice a Day Treatment Plan Physical Therapy Treatment Plan Bed Mobility Training,Transfer Training,Gait Training, Therapeutic Exercise,Balance Retraining,Post Op Education, Discharge Planning,Hot or Cold Pack,Neuromuscular Re-ed, Coordination Retraining,Manual Therapy Precautions Anterior Hip Precautions No Hip Extension,No Hip External Rotation Weight Bearing Status Weight Bearing Status Weight Bear as Tolerated Allowed Weight Bearing Amount (enter % RLE WBAT or #) (%) Recommendations To Nursing Amount of Assist Needed 1 Person Assist Discharge Recommendations PT Discharge Recommendations SNF Rehab Transportation Needs at Discharge Wheelchair/Cabulance
--- NOTE | 2023-12-07 15:33 | CM.DANOTE ---
Initial DCP Assessment Note Pt is a 88 yo male, resident of [place], now POD#1 from Rt hip surgery by Dr Herdeia PCP: Marbella Duenas Payer: [employer] Reviewed chart, pt discussed in multidisciplinary rounds this morning. Post op course complicated by blood loss and hypotension. Met w/patient and his son Mary Ann, introduced self and role. Patient lives alone, although son and daughter in law love next door and daughter in law manages all higher ADLs. Patient does not drive. Patient receives meals through [employer] [facility]. Patient/family request referral to [facility] state SNF seems a safer option for patient before returning home with resumption of family assist. Son works business services intern as a sdv pilot/navigator/dds operator, daughter in law does not. Discussed referral with Bianca at [facility] who agrees to review today. PASRR needed if SNF. CM team will plan to follow closely for coordination of discharge plan. EFRAIN Santos Discharge Planning/Care Management CM Discharge Assessment Start: 12/07/23 15:28 Freq: Status: Active Protocol: Document 12/07/23 15:31 (Rec: 12/07/23 15:32 [id number]) Discharge Planning Assessment Assigned Management Tech EFRAIN Obrien DPOA/Assigned Designee Name shai Pizano Contact Information [phone] Advance Directives? No Advance Directives on File No History Provided By Patient,Medical Record Prior Living Arrangements House Household Members none Comment Son and daughter in law live next door Type of transporation used prior to Relies on Others admit Independent with ADL's Yes: Mod I, DIL helps with higher ADLs Is patient alert and oriented? Yes Needs Assistance With Meal Prep,Managing Medications ,Home Chores / Shopping Patient/Family Preference [facility] Barriers to Discharge No Discharge Plan Pen[facility] Facility Transportation Arrangement Likely wheelchair van Referrals Initiated Penitentiary Medicare Choice List Provided Yes SNF/HH Preference [facility] Has Agency SNF been contacted Yes
--- NOTE | 2023-12-07 15:45 | OT.IP.EVAL ---
Current Diagnoses Unilateral primary osteoarthritis, right hip (12/06/23) Surgery Performed Operation Date: 12/06/23 07:45 Actual Procedures p Total Hip Arthroplasty/Anterior Approach(Right) - Benny Heredia MD Past Medical History (Last Reviewed 12/03/23 @ 08:13 by YOANDY Michaud) Acute GI bleeding Anemia Balance problems (02/08/16) Waters's palsy Chickenpox Chronic anticoagulation Class 1 obesity due to excess calories with body mass index (BMI) of 31.0 to 31.9 in adult Coronary artery disease (2008) Coronary artery disease involving [place] coronary artery of [place] heart without angina pectoris (02/08/16) Depression Essential hypertension (02/08/16) Gastric reflux Gastroesophageal reflux disease (06/13/16) Headache Hearing loss (2014) History of COVID-19 History of malignant neoplasm of prostate (04/08/15) Hx of myocardial infarction (Unknown) Hypertension (Unknown) Left foot drop (03/06/17) Lumbar disc disease (2012) Measles Memory changes Myocardial infarction (12/2006) SEAN treated with BiPAP Peripheral neuropathy Peripheral polyneuropathy (03/06/17) Polio (1950) Pre-diabetes Prostate cancer (2008) Protein-calorie malnutrition, mild Pure hypercholesterolemia (02/08/16) Spinal stenosis of lumbar region (02/08/16) Statin intolerance (02/08/16) TIA (transient ischemic attack) Vitamin D deficiency (11/21/16) Surgical History (Last Reviewed 12/03/23 @ 08:13 by YOANDY Michaud) History of prostate surgery (2009) Hx of heart artery stent (12/2006) Status post laminectomy Occupational Therapy Inpatient Evaluation/Re-Eval M1 PT/OT-IP Prior Functional Status Start: 12/07/23 13:44 Freq: NEEDED Status: Active Protocol: Document 12/07/23 11:00 AB (Rec: 12/07/23 14:01 AB [id number]) Medical Review Prior Functional Status Medical History Reviewed Yes Communication able to make needs known Mobility and Gait pt stated that he was modified independent with all mobilities and ambulation using a 4WW Social History Household Members none Living Arrangements House Number of Floors (Floors) Two Floors Number of Stairs To Enter/Railing? pt has access to an elevator to get into the house and ton 2nd level of the house Home Environment Standard Height Toilet,Built- In Shower Seat Home Equipment Front Wheel Walker,Four Wheel Walker,Hand Held Shower,Grab Bars In Shower Additional Social History Comment pt stated that his son /JAYLEEN lives next door and can assist him if needed pt has a walk in tub shower pt has a toilet safety frame pt is getting a hospital bed; pt current bed is high and HOB elevated up due to his GERD per pt. M1 PT/OT-IP Prior Functional Status Start: 12/07/23 15:19 Freq: NEEDED Status: Active Protocol: Document 12/07/23 11:00 [facility] (Rec: 12/07/23 15:45 [facility] [id number]) Medical Review Prior Functional Status Medical History Reviewed Yes Communication able to make needs known Mobility and Gait pt stated that he was modified independent with all mobilities and ambulation using a 4WW Activities of Daily Living and IADL's pt has someone who cleans his house for him. pt orders premade meals and is able to heat them in the microwave. pt reports he was performing his BADLs without assistance Prior Functional Level (Other details) pt has a chicken coop and two chickens. pt has been unable to ambulate in the coop. pt has a dog. Social History Household Members none Living Arrangements House Number of Floors (Floors) Two Floors Number of Stairs To Enter/Railing? pt has access to an elevator to get into the house and ton 2nd level of the house Home Environment Standard Height Toilet,Built- In Shower Seat Home Equipment Front Wheel Walker,Four Wheel Walker,Hand Held Shower, Satellite Tv Technician,Sock Aid,Grab Bars In Shower Additional Social History Comment pt stated that his son /JAYLEEN lives next door and can assist him if needed pt has a walk in tub shower pt has a toilet safety frame pt is getting a hospital bed; pt current bed is high and HOB elevated up due to his GERD per pt. M2 OT-IP Current Condition Start: 12/07/23 15:19 Freq: Status: Active Protocol: Document 12/07/23 11:00 [facility] (Rec: 12/07/23 15:45 [facility] [id number]) Occupational Therapy Current Condition Current Condition Evaluation Date 12/07/23 Treatment Diagnosis R THELMA Diagnosis Onset Date 12/06/23 Post Operative Precautions Anterior Hip Precautions No Hip Extension,No Hip External Rotation Weight Bearing Status Weight Bearing Status Weight Bear as Tolerated M3 OT- IP Subjective and Pain Start: 12/07/23 15:19 Freq: Status: Active Protocol: Document 12/07/23 11:00 JONNIE (Rec: 12/07/23 15:45 [facility] [id number]) OT- Subjective Occupational Therapy Visit Type Type Initial Evaluation Visit Start Time 11:00 Visit Stop Time 12:00 Notes Pt reclined in bed on entrance of OT/PT for co-eval. Pt is agreeable to participating in eval. Occupational Therapy Visit Comments Patient Comments Pt reports that he is willing to go to therapy facility before d/c home, so that he can take better care of himself. OT Pain Assessment Pain When Pain Assessed At Rest Pain Present Pain Present Denied Pain M4 OT- IP ADL's Start: 12/07/23 15:19 Freq: Status: Active Protocol: Document 12/07/23 11:00 JONNIE (Rec: 12/07/23 15:45 [facility] [id number]) OT OES-Rjdb-Usmrlyh General Evaluation Self-Feeding Ability Independent OT ADL-Grooming General Evaluation Grooming Ability Standby Assistance Areas Needing Assistance Retrieving/Set-up of Grooming Items Comments OT Grooming Comments Pt ratliff his hair while sitting up in chair on set up of comb. OT ADL-Oral Care Comments Oral Care Comments pt declines stating I need to , but I don't feel like it right now OT ADL-Dressing General Eval Lower Body Dressing Ability Minimal Assistance Areas Needing Assistance Socks Comments OT Dressing Comments Pt unable to reach his LE for don/doff sock. Pt reports he has a sock aid but doesn't know how to use it. OT educated pt on use of fabrication operator and sockaid. Pt demonstrates doff/donning of sock with min A. Pt declines additional dressing at time of eval. OT ADL-Toileting General Evaluation Toileting Ability Total Assistance Areas Needing Assistance Empty Catheter or Colostomy Comments OT Toileting Comments pt total A for catheter. pt did not need to have bm during eval. OT ADL-Bathing Comments OT Bathing Comments pt declined at time of eval. M5 OT- IP IADL's Start: 12/07/23 15:19 Freq: Status: Active Protocol: Document 12/07/23 11:00 [facility] (Rec: 12/07/23 15:45 [facility] [id number]) OT-Instrumental Activities of Daily Living Home Safety Awareness Awareness of Need for Assistance at Home Good Awareness Ability to Problem Solve Emergency Able to Problem Solve Situations Medication Management Medication Management No Deficits Identified Money Management Money Management No Deficits Identified Meal Preparation Meal Preparation Comments may need assist on d/c Actuarial Clerk Actuarial Clerk Caregiver Provides Assist Driving Driving Comments will need assist on d/c M6 OT- IP Functional Cognition Start: 12/07/23 15:19 Freq: Status: Active Protocol: Document 12/07/23 11:00 [facility] (Rec: 12/07/23 15:45 [facility] [id number]) Cognitive Factors Limiting Selfcare Function Cognitive Ability Level of Alertness Alert Patient Orientation Name,Age,Birthday,Month,Date, Year,Day of Week,Place, Situation Attention Span Ability Capable of Focused Attention, Capable of Sustained Attention Ability to Follow Commands Able to Follow One Step Commands,Able to Follow Multi- Step Commands Memory Description No Deficits Noted Safety Awareness Decreased Recall of Precautions Problem Solving Ability No deficits Noted Executive Function Ability No Deficits Noted Abstract Thinking Ability No Deficits Noted OT- Vision and Hearing OT- Hearing Assessment OT- Hearing Assessment WFL OT- Vision Assessment Visual Acuity WFL M7 OT- IP Mobility and Balance Start: 12/07/23 15:19 Freq: Status: Active Protocol: Document 12/07/23 11:00 JONNIE (Rec: 12/07/23 15:45 [facility] [id number]) OT- Bed Mobility Assessment Supine to Sit Supine to Sit Assist Maximum Assistance,1 Person Assistance,2 Person Assistance OT-Transfer Assessment Sit to and From Stand Sit to and from Stand Maximum Assistance,1 Person Assistance Transfers Transfer Ability Moderate Assistance,Maximum Assistance,1 Person Assistance Technique Transfer Destination Chair Transfer Technique Stand Step Pivot Devices Transfer Assistive Devices Gait Belt,Front Wheeled Walker Comments Mobility Comments post-op folder provided and reviewed contents. educated pt regarding R anterior hip precautions. pt requires max cues during functional t/fs. able to sit on EOB CGA. no c/o dizziness/lightheadedness. OT- Gait Assessment Gait Gait Assistance Required: Moderate Assistance,Maximum Assistance,1 Person Assist,2 Person Assist Distance (Feet) 15 Assistive Devices Assistive Device Gait Belt,4 Wheeled Walker Comments Gait Ability Comments ambulated in room using FWW mod to max A and cues ~ 15 ft. presents with antalgic gait with left foot drop OT- Balance Assessment Sitting Balance and Reactions Static Sitting Balance Ability Good Dynamic Sitting Balance Ability Fair Standing Balance and Reactions Static Standing Balance Ability Fair Dynamic Standing Balance Ability Fair M8 OT- IP Objective Assessments Start: 12/07/23 15:19 Freq: Status: Active Protocol: Document 12/07/23 11:00 [facility] (Rec: 12/07/23 15:45 [facility] [id number]) OT Gross Range of Motion Upper Extremity Range of Motion Assessment Within Functional Limits OT Strength Upper Extremity Strength Assessment Within Functional Limits Comments Strength Comments pt 4/5 grossly for B UEs OT-Muscle Tone Assessment Muscle Tone WNL Yes M9 OT- IP Assessment and Plan Start: 12/07/23 15:19 Freq: Status: Active Protocol: Document 12/07/23 11:00 [facility] (Rec: 12/07/23 15:45 [facility] [id number]) OT Summary Assessment and Plan Potential Rehabilitation Potential Fair Analytic Complexity at Evaluation High Summary OT Impairments Strength,Balance,Functional Mobility,Grooming,Dressing, Toileting,Bathing,Toilet Transfers,Shower Transfers, Activity Tolerance Progress Towards Goals Progressing Toward Goals,Slow Progress due to Medical Issues Assessment Summary pt is 88 yo M s/p R THELMA anterior approach. pt was educated on R anterior hip precautions and given packet. pt is WBAT. pt with episode of hypotension s/p surgery. pt demonstrates activity intolerance, decreased BADLs, decreased functional t/fs, and decreased balance. Skilled OT services are appropriate to address these deficits and promote return to PLOF. Upon d/c pt will require 24/ assist and would benefit from SNF rehab. Goals Grooming Goal Independent Dressing Goal Independent,Satellite Tv Technician,Sock Aid Toileting Goal Independent Bathing Goal Minimal Assistance Toilet Transfer Goal Independent Shower Transfer Goal Minimal Assistance,Tub Only Days to Meet Goals 14 Frequency of Treatment Frequency Of Treatment Once a Day Treatment Plan OT Treatment Plan ADL Training,Functional Mobility,Therapeutic Exercises ,Patient/Family Education, Discharge Planning Other Treatment Recommendations and Next EOB ADLs Treatment Focus Discharge Recommendations OT Discharge Recommendations SNF Rehab Transportation Needs at Discharge Private Vehicle,Wheelchair/ Cabulance
--- NOTE | 2023-12-07 16:15 | PM.PN.1 ---
Subjective Subjective Interval history: 88 M in the ICU for presumed hypovolemic shock. Now off pressors, feeling quite well. Major with gross hematuria. On heparin infusion for possible NSTEMI. Echo was unremarkable, NSTEMI less likely so was transitioned back to home apixaban this morning. Exam Vital Signs (past 8 hours): - 12/07/23 08:55 12/07/23 12:56 12/07/23 13:00 Temperature 98.0 F Pulse Rate 100 H 93 H Respiratory Rate 26 H 28 H Blood Pressure Pulse Oximetry Oxygen Flow Rate 12/07/23 13:09 12/07/23 13:09 12/07/23 13:10 Temperature Pulse Rate 88 Respiratory Rate 26 H Blood Pressure 96/49 L 99/49 L Pulse Oximetry Oxygen Flow Rate 12/07/23 13:10 12/07/23 13:26 12/07/23 13:27 Temperature 98.0 F Pulse Rate 89 Respiratory Rate 28 H Blood Pressure Pulse Oximetry 95 Oxygen Flow Rate 0 Oxygen Delivery Method Room Air Oxygen Flow Rate 0 Narrative Exam Narrative: GEN: no acute distress, well appearing. HEENT: moist mucous membranes, PERRL NECK: trachea midline, no JVD CV: regular rate and rhythm, no murmurs PULM: clear bilaterally ABD: soft, nontender, nondistended, no organomegaly EXT: warm and well perfused with no edema NEURO: awake, alert, oriented, no focal deficits Objective Labs 12/07/23 06:30 12/07/23 06:30 Labs: Laboratory Results - last 24 hr 12/06/23 12/06/23 12/06/23 13:45 15:03 18:15 WBC RBC Hgb Hct MCV MCH MCHC RDW Plt Count Neut % (Auto) Lymph % (Auto) [place] % (Auto) Eos % (Auto) Baso % (Auto) Neut # (Auto) Lymph # (Auto) [place] # (Auto) Eos # (Auto) Baso # (Auto) PT INR APTT Sodium Potassium Chloride Carbon Dioxide BUN Creatinine Estimated GFR BUN/Creatinine Ratio Glucose Calcium Total Bilirubin AST ALT Alkaline Phosphatase Troponin I 0.214 H* Total Protein Albumin Globulin Albumin/Globulin Ratio Urine Color Yellow Urine Appearance Clear Urine pH 5.0 Ur Specific [place] 1.025 Urine Protein Negative Urine Glucose (UA) 2+ H Urine Ketones 1+ H Urine Occult Blood Trace-intact Urine Nitrate Negative Urine Bilirubin Negative Urine Urobilinogen 0.2 Ur Leukocyte Esterase Negative Urine RBC 0-1/hpf Urine WBC None seen Ur Squamous Epith Cells 0-1 /hpf Ur Transition Epith Cell 0-1/hpf Urine Bacteria Occasional (0-1) Urine Mucus 1+ H Ur Culture Indicated? Cult not indicated Vol Urine Centrifuged 10ml (spun) Nasal Screen MRSA (PCR) Not detected 12/06/23 12/07/23 12/07/23 22:50 06:30 13:20 WBC 11.2 H 10.6 RBC 2.41 L 2.35 L Hgb 7.9 L 7.8 L Hct 23.5 L 22.8 L MCV 97.5 97.0 MCH 32.8 33.0 MCHC 33.7 34.0 RDW 13.4 13.6 Plt Count 100 L 93 L Neut % (Auto) 90.3 H 83.0 H Lymph % (Auto) 3.2 L 8.2 L [place] % (Auto) 5.6 8.5 Eos % (Auto) 0.0 L 0.1 L Baso % (Auto) 0.9 0.2 Neut # (Auto) 81323 H 8800 H Lymph # (Auto) 400 L 900 L [place] # (Auto) 600 900 Eos # (Auto) 0 0 Baso # (Auto) 100 0 PT 14.4 H INR 1.3 APTT 91 H* 58 H D 51 H Sodium 131 L 134 L Potassium 5.3 H 4.6 Chloride 105 107 Carbon Dioxide 21 L 21 L BUN 33 H 34 H Creatinine 1.11 1.13 Estimated GFR > 60 > 60 BUN/Creatinine Ratio 29.7 H 30.1 H Glucose 186 H 135 H Calcium 7.7 L 7.6 L Total Bilirubin 0.3 AST 24 ALT 20 Alkaline Phosphatase 35 L Troponin I 0.228 H* 0.254 H* Total Protein 5.5 L Albumin 3.1 L Globulin 2.4 Albumin/Globulin Ratio 1.3 Urine Color Urine Appearance Urine pH Ur Specific [place] Urine Protein Urine Glucose (UA) Urine Ketones Urine Occult Blood Urine Nitrate Urine Bilirubin Urine Urobilinogen Ur Leukocyte Esterase Urine RBC Urine WBC Ur Squamous Epith Cells Ur Transition Epith Cell Urine Bacteria Urine Mucus Ur Culture Indicated? Vol Urine Centrifuged Nasal Screen MRSA (PCR) [facility] Medical History History of COVID-19 Peripheral neuropathy Waters's palsy Depression TIA (transient ischemic attack) Memory changes SEAN treated with BiPAP Myocardial infarction (12/2006) Class 1 obesity due to excess calories with body mass index (BMI) of 31.0 to 31.9 in adult Pre-diabetes Gastric reflux Protein-calorie malnutrition, mild Anemia Chronic anticoagulation Acute GI bleeding Headache Hx of myocardial infarction (Unknown) Hypertension (Unknown) Lumbar disc disease (2012) Polio (1950) Chickenpox Measles Hearing loss (2014) Coronary artery disease (2008) Prostate cancer (2008) Peripheral polyneuropathy (03/06/17) Left foot drop (03/06/17) Vitamin D deficiency (11/21/16) Gastroesophageal reflux disease (06/13/16) Statin intolerance (02/08/16) Spinal stenosis of lumbar region (02/08/16) Pure hypercholesterolemia (02/08/16) History of malignant neoplasm of prostate (04/08/15) Essential hypertension (02/08/16) Coronary artery disease involving blackfeet coronary artery of blackfeet heart without angina pectoris (02/08/16) Balance problems (02/08/16) Surgical History Hx of heart artery stent (12/2006) History of prostate surgery (2009) Status post laminectomy Family History Father No problems noted. Mother Cancer Grandfather No problems noted. Grandmother No problems noted. Grandfather No problems noted. Grandmother Cancer Family/Other Stroke Heart attack Coronary artery disease Congestive heart failure Social History marital status: household members: none Smoking Status: Former smoker second hand exposure: No alcohol intake: current substance use type: does not use Assessment & Plan Assessment & Plan narrative: # hypovolemic / hemorrhagic shock in setting of acute blood loss anemia due to surgery -BP down to 83/37 coming out surgery, s/p 4L NS boluses in PACU -levophed now weaned off, stable for floor today. -echo to r/o cardiogenic was unremarkable. -appreciate teleICU consult -continue to hold home BP meds -CTA chest to r/o obstructive shock from PE, as patient was off his eliquis for last 5 days was negative. -Hg 7.8, no chest pain or dyspnea. If drops further may need 1U PRBC transfusion. # possible NSTEMI -troponin 0.264, likely from shock / demand -can stop heparin infusion transition to PO apixaban with TTE being unremarkable and no symptoms today. -Hg 7.8, if drops further will probably need 1 U PRBC. -initial repeat troponin fell, but then increased again. Will continue to follow until downtrending now. #Chronic HFrEF -EF 40-45% previously in Sep 2023, now improved to normal. -repeat limited echo to check EF was unremarkable with normal EF and no WMA. -hold home empagliflozin, lasix and aldactone # acute hypoxic resp failure -requiring 3L NC following surgery, normally on room air at baseline -CXR shows cardiomegaly and pulm edema -CTA chest to r/o PE was negative. No resolved hypoxia. # persistent AF -hold home eliquis until more stable -currently rate-controlled -tele # CAD s/p stent in 2008 -continue aspirin # HTN -holding BP meds for now # HLD -hold statin for now # BPH with hematuria -major in place, likely hematuria from traumatic insertion. Continue major for now until hematuria improves. # GERD -pepcid IV BID I spent a total of 35 minutes of critical care time on this patient's care today; this time is exclusive of procedural time. Code status is full code. DVT prophylaxis with SCDs. Proxy is son who is POA. I have reviewed home meds and used all available resources to reconcile the home meds. Medicine will continue to follow. Thank you for allowing us to participate in the care of this patient. Should you have any questions, do not hesitate to speak with us directly or call us. Patient stable for regular floor today. Quality VTE Deep Vein Thrombosis/Pulmonary Embolism Present on Admission: No
[2023-12-07] MEDS: INSULIN LISPRO 100 UNIT/ML 3ML VIAL SUBCUT ×2 (17:08→21:55)
[2023-12-07] MEDS: TAMSULOSIN 0.4 MG CAPSULE 0.8 MG PO (17:09)
[2023-12-07 18:49] LABS: Troponin I 0.207 ng/mL (0.01-0.034)
[2023-12-07] MEDS: METOCLOPRAMIDE HCL 5 MG TABLET 10 MG PO (21:29)
[2023-12-07] MEDS: ATORVASTATIN 20 MG TABLET PO (21:31)
[2023-12-07] MEDS: VENLAFAXINE ER 37.5 MG CAP 75 MG PO (21:31)
[2023-12-07] MEDS: SODIUM CHLORIDE 0.9% FLUSH 10 ML IV ×2 (21:33→22:40)
[2023-12-07] MEDS: SODIUM CHLORIDE 0.9% 250 ML 21 ML IV (22:37)
[2023-12-08] VITALS (28 sets, daily range): BP systolic 104–139; BP diastolic 52–65; PULSE 65–94; RESP 16–41; TEMP 36.1–36.7; O2SAT 96–99
--- NOTE | 2023-12-08 03:37 | PC.NURSE ---
At the beginning of shift, HEAVEN dressing on right hip incision battery pack was flashing both green and red. Dr. Heredia was rounding and was notified. Dressing and battery pack was inspected. HEAVEN dressing battery pack is now flashing green and functioning properly.
[2023-12-08 04:52] LABS: Add Manual Diff / Slide Review NO; Basophils Absolute Auto 0 /uL (0-100); Basophils Percent Auto 0.2 % (0-2); Eosinophils Absolute Auto 200 /uL (0-450); Lymphocytes Absolute Auto 1100 /uL (1100-4500); Lymphocytes Percent Auto 12.9 % (25-40); Mean Corpuscular HGB Conc 34.1 % (30-36); Mean Corpuscular Volume 96.7 fL (80-100); Monocytes Absolute Auto 800 /uL (0-900); Monocytes Percent Auto 9.3 % (3-14); Neutrophils Absolute Auto 6200 /uL (1500-7000); Neutrophils Percent Auto 75.6 % (50-75); Platelet Count 92 X10^3/uL (150-400); Red Blood Cell Count 2.08 X10^6/uL (4.5-5.9); Red Cell Distribution Width 13.7 % (11.6-14.8); White Blood Cell Count 8.2 X10^3/uL (4.5-11.0)
[2023-12-08 05:02] LABS: Hematocrit 20.2 % (41-53); Hemoglobin 6.9 g/dL (13.5-17.5)
[2023-12-08 05:05] LABS: PTT Partial Thromboplastin Tim 32 SECONDS (25.1-36.5)
[2023-12-08 05:07] LABS: BUN Creatinine Ratio 30.3 (6-22); Blood Urea Nitrogen 36 mg/dL (9-20); Calcium 7.8 mg/dL (8.4-10.2); Carbon Dioxide 22 mmol/L (22-32); Chloride 106 mmol/L (98-107); Estimated Glomerular Filt Rate 59 mL/min (>60); Glucose 137 mg/dL (80-110); HEMOLYSIS < 15 (0-50); Potassium 4.5 mmol/L (3.4-5.1); Sodium 132 mmol/L (137-145)
[2023-12-08] MEDS: PIPERACILLIN/TAZO 3.375 GM in SODIUM CHLORIDE 0.9% 100 ML IV ×3 (05:46→21:33)
[2023-12-08] MEDS: DOCUSATE 100 MG CAPSULE PO ×2 (09:02→20:53)
[2023-12-08] MEDS: OXYBUTYNIN 5 MG ER TAB 10 MG PO (09:02)
[2023-12-08] MEDS: GABAPENTIN 300 MG CAPSULE 900 MG PO ×2 (09:02→20:54)
[2023-12-08] MEDS: OXYCODONE IR 5 MG TABLET PO ×2 (09:02→14:54)
[2023-12-08] MEDS: polyethylene glycoL 3350 17 GM POWD.PACK PO (09:02)
[2023-12-08] MEDS: ACETAMINOPHEN 325 MG TABLET 650 MG PO ×3 (09:02→20:53)
[2023-12-08] MEDS: METOCLOPRAMIDE HCL 5 MG TABLET 10 MG PO ×3 (09:02→20:54)
[2023-12-08] MEDS: SODIUM CHLORIDE 0.9% FLUSH 10 ML IV ×2 (09:03→21:33)
[2023-12-08] MEDS: PANTOPRAZOLE DR 20 MG TABLET PO ×2 (09:03→20:55)
[2023-12-08] MEDS: DOXYCYCLINE HYCLATE 100 MG TABLET PO ×2 (09:03→20:53)
--- NOTE | 2023-12-08 10:50 | PT-IP ANOTE ---
Pt receiving 2 units of blood, is not appropriate for PT. Pt will check back with pt later today.
--- NOTE | 2023-12-08 10:59 | P.PN_ITS ---
Subjective Subjective Date Patient Seen: 12/08/23 Time Patient Seen: 11:00 Interval history: Patient denies pain. Denies any shortness of breath or chest pain. No nausea vomiting. No dizziness or lightheadedness. Patient was out of bed yesterday sitting in bedside chair. Patient has not yet been out of bed today. Exam Vital Signs (past 8 hours): - 12/08/23 03:19 12/08/23 06:17 12/08/23 06:32 Temperature 98.0 F 97.7 F 97.1 F L Pulse Rate 85 94 H 81 Respiratory Rate 24 18 19 Blood Pressure 107/58 L 108/52 L 108/54 L Pulse Oximetry 98 12/08/23 08:00 12/08/23 09:21 12/08/23 10:49 Temperature 96.9 F L 97.4 F L 97.6 F Pulse Rate 83 83 76 Respiratory Rate 20 20 20 Blood Pressure 104/55 L 116/54 L 139/62 Pulse Oximetry 98 Oxygen Delivery Method Room Air Oxygen Flow Rate 0 Narrative Exam Narrative: 88-year-old male resting comfortably in bed in no apparent distress. Cahz dressing is on and functioning. Dressing is clean, dry and intact. Motor functions intact bilateral lower extremities. Sensation grossly intact to light touch bilateral lower extremities. Objective Labs 12/08/23 04:25 12/08/23 04:25 Labs: Laboratory Results - last 24 hr 12/06/23 12/07/23 12/07/23 11:15 13:20 16:55 WBC RBC Hgb Hct MCV MCH MCHC RDW Plt Count Neut % (Auto) Lymph % (Auto) [place] % (Auto) Eos % (Auto) Baso % (Auto) Neut # (Auto) Lymph # (Auto) [place] # (Auto) Eos # (Auto) Baso # (Auto) APTT 51 H Sodium Potassium Chloride Carbon Dioxide BUN Creatinine Estimated GFR BUN/Creatinine Ratio Glucose Calcium Troponin I 0.207 H* Blood Type A Positive Antibody Screen Negative Crossmatch See Detail 12/08/23 04:25 WBC 8.2 RBC 2.08 L Hgb 6.9 L* Hct 20.2 L* MCV 96.7 MCH 33.0 MCHC 34.1 RDW 13.7 Plt Count 92 L Neut % (Auto) 75.6 H Lymph % (Auto) 12.9 L [place] % (Auto) 9.3 Eos % (Auto) 2.0 Baso % (Auto) 0.2 Neut # (Auto) 6200 Lymph # (Auto) 1100 [place] # (Auto) 800 Eos # (Auto) 200 Baso # (Auto) 0 APTT 32 D Sodium 132 L Potassium 4.5 Chloride 106 Carbon Dioxide 22 BUN 36 H Creatinine 1.19 Estimated GFR 59 L BUN/Creatinine Ratio 30.3 H Glucose 137 H Calcium 7.8 L Troponin I Blood Type Antibody Screen Crossmatch [facility] Medical History History of COVID-19 Peripheral neuropathy Waters's palsy Depression TIA (transient ischemic attack) Memory changes SEAN treated with BiPAP Myocardial infarction (12/2006) Class 1 obesity due to excess calories with body mass index (BMI) of 31.0 to 31.9 in adult Pre-diabetes Gastric reflux Protein-calorie malnutrition, mild Anemia Chronic anticoagulation Acute GI bleeding Headache Hx of myocardial infarction (Unknown) Hypertension (Unknown) Lumbar disc disease (2012) Polio (1949) Chickenpox Measles Hearing loss (2014) Coronary artery disease (2008) Prostate cancer (2008) Peripheral polyneuropathy (03/06/17) Left foot drop (03/06/17) Vitamin D deficiency (11/21/16) Gastroesophageal reflux disease (06/13/16) Statin intolerance (02/08/16) Spinal stenosis of lumbar region (02/08/16) Pure hypercholesterolemia (02/08/16) History of malignant neoplasm of prostate (04/08/15) Essential hypertension (02/08/16) Coronary artery disease involving [place] coronary artery of [place] heart without angina pectoris (02/08/16) Balance problems (02/08/16) Surgical History Hx of heart artery stent (12/2006) History of prostate surgery (2009) Status post laminectomy Family History Father No problems noted. Mother Cancer Grandfather No problems noted. Grandmother No problems noted. Grandfather No problems noted. Grandmother Cancer Family/Other Stroke Heart attack Coronary artery disease Congestive heart failure Social History marital status: household members: none Smoking Status: Former smoker second hand exposure: No alcohol intake: current substance use type: does not use Assessment & Plan Post-op Postoperative Procedures: Procedures Operation Date: 12/06/23 07:45 Actual Procedure Side Surgeon p Total Hip Arthroplasty/Anterior Approach Right Benny Heredia MD Postoperative day: 2 Postoperative status narrative: Stable Postoperative plan narrative: Hemoglobin 6.9, hematocrit 20.2 hospitalist states that patient was infused the unit last night and has ordered another unit of packed red blood cells today Weight-bearing as tolerated, anterior hip precautions Apixaban held today by hospitalist due to hematuria No NSAIDs Appreciate hospitalist following complex patient with hypovolemic/hemorrhagic shock in the setting of acute blood loss anemia due to surgery, possible in NSTEMI, chronic heart failure, acute hypoxic respiratory failure, persistent atrial fibrillation, CAD status post stent 2009, hypertension, hyperlipidemia, BPH with hematuria, GERD Disposition, to be determined Quality VTE Deep Vein Thrombosis/Pulmonary Embolism Present on Admission: No
--- NOTE | 2023-12-08 13:26 | CM.DPC ---
DCP Cont: Patient is eligible for discharge tomorrow, but hospitalist indicated that patient most likely will not be ready until Sunday, since his H&H was low. Patient is supposed to go to [facility]. Checked in with January at [facility], can accept tomorrow if ready, or Sunday. Completed PASSR. P: DCP to continue to follow. Plan is [facility], may not happen until Sunday. Roseline Talavera RN/Adult Secondary Education Instructor
[2023-12-08 14:40] LABS: Hematocrit 26.4 % (41-53)
--- NOTE | 2023-12-08 15:30 | PT.IPTN ---
Current Diagnoses Unilateral primary osteoarthritis, right hip (12/06/23) Surgery Performed Operation Date: 12/06/23 07:45 Actual Procedures p Total Hip Arthroplasty/Anterior Approach(Right) - Benny Heredia MD Physical Therapy Treatment Note M2 PT-IP Current Condition Start: 12/07/23 13:44 Freq: NEEDED Status: Active Protocol: Document 12/07/23 11:00 AB (Rec: 12/07/23 14:01 AB [id number]) Physical Therapy Current Condition Current Condition Evaluation Date 12/07/23 Treatment Diagnosis s/p R THELMA anterior approach; difficulty in walking Onset Date 12/06/23 M3 PT-IP Subjective Start: 12/07/23 13:44 Freq: NEEDED Status: Active Protocol: Document 12/08/23 16:46 TS (Rec: 12/08/23 16:58 TS [id number]) Subjective Physical Therapy Visit Type Type Treatment Note Visit Start Time 15:30 Visit Stop Time 16:00 Notes Per RN pt appropriate for PT. Number of POSITION CLASSIFICATION SPECIALIST Visits 2 Physical Therapy Visit Comments Patient Comments Pt found resting in bed, reports minimal pain in R hip, is agreeable to PT. M4 PT-IP Mobility and Gait Start: 12/07/23 13:44 Freq: NEEDED Status: Active Protocol: Document 12/08/23 16:46 TS (Rec: 12/08/23 16:58 TS [id number]) PT-Bed Mobility Assessment Supine to Sit Supine to Sit Maximum Assistance,1 Person Assistance Scooting Scooting to Edge of Bed Minimal Assistance PT-Transfer Assessment Sit to and From Stand Sit to and from Stand Minimal Assistance,1 Person Assistance,Use of Upper Extremities Transfers Transfer Destination Chair Transfer Technique Stand Step Pivot Transfer Ability Level of Assist Minimal Assistance,1 Person Assistance Comments Mobility Comments Pt performed heel slides on RLE prior to mobility. Supine to sit MaxA with [employer] and HOB elevated for uprighting trunk. STS x3 from bed with Ami and use of FWW. pt has no buckling in standing this session. He ambulated 3x~15' with FWW, again had no RLE buckling. Stand step pivot to chair Ami with FWW and max cues for sequencing. in chair pt performed knee flex/ext with 3 sec holds. pt was left in chair, all needs met. Gait Assessment Gait Gait Assistance Required: Minimum Assistance Distance (Feet) 45 Able to Maintain Weight Bearing Status Yes During Gait Assistive Devices Assistive Device Gait Belt,Front Wheeled Walker Orthotic/Prosthetic Devices or Brace: No Gait Deviations General Gait Pattern Antalgic,Decreased Feet Clearance Factors Limiting Gait Function Factors Limiting Gait Function Decreased Activity Tolerance, Decreased Strength,Difficulty Following Directions,Limited Range of Motion,Pain,Poor Balance,Poor Safety Awareness Comments Gait Comments See mobility comments PT-Balance Assessment Sitting Balance and Reactions Static Sitting Balance Ability Good Dynamic Sitting Balance Ability Fair Standing Balance and Reactions Static Standing Balance Ability Fair Dynamic Standing Balance Ability Fair M5 PT-IP Objective Assessments Start: 12/07/23 13:44 Freq: NEEDED Status: Active Protocol: Document 12/07/23 11:00 AB (Rec: 12/07/23 14:01 AB [id number]) Orientation Orientation/Cognition Level of Alertness Alert Orientation Name,Place,Situation Safety Awareness Decreased Safety Awareness Memory Description No Deficits Noted Gross Range of Motion Lower Extremity ROM Assessment Within Functional Limits Strength Lower Extremity Strength Assessment Bilaterally Impaired Comments Strength Comments RLE: 3+/5 LLE: 4-/5 except L ankle: 2/5 Sensation Assessment Sensation Sensation Description Numbness Comments Sensation Comments LLE neuropathy per pt Muscle Tone Muscle Tone WNL Yes M6 PT-IP Treatment Start: 12/07/23 13:44 Freq: NEEDED Status: Active Protocol: Document 12/08/23 16:46 TS (Rec: 12/08/23 16:58 TS [id number]) Physical Therapy Treatment Education Education Provided Precautions,Weight Bearing Status,Post-Op Packet,Safety M7 PT-IP Assessment and Plan Start: 12/07/23 13:44 Freq: NEEDED Status: Active Protocol: Document 12/08/23 16:46 TS (Rec: 12/08/23 16:58 [id number]) PT Summary Assessment and Plan Potential Rehabilitation Potential Fair Summary Impairments Pain,ROM,Strength,Balance, Coordination,Sensation,Tone, Cognition,Bed Mobility, Transfers,Gait,Activity Tolerance Progress Towards Goals Progressing Toward Goals Assessment Summary Kenneth continues to make progress with his mobility. He progressed his gait to 3x~15' with use of FWW. He had no buckling of RLE this session and demonstrates increased strength in RLE. He does require frequent breaks due to low activity tolerance. PT continues to recommend SNF. Goals Bed Mobility Goal Minimal Assistance Transfer Goal Minimal Assistance,Front Wheeled Walker Gait Goal Minimal Assistance,Front Wheel Walker Gait Distance 50 Other Goals improve bed mobility, transfers, ambulation using FWW ~ 150 ft SBA Days to Meet Goals 5 Frequency of Treatment Frequency Of Treatment Twice a Day Treatment Plan Physical Therapy Treatment Plan Bed Mobility Training,Transfer Training,Gait Training, Therapeutic Exercise,Balance Retraining,Post Op Education, Discharge Planning,Hot or Cold Pack,Neuromuscular Re-ed, Coordination Retraining,Manual Therapy Precautions Anterior Hip Precautions No Hip Extension,No Hip External Rotation Weight Bearing Status Weight Bearing Status Weight Bear as Tolerated Allowed Weight Bearing Amount (enter % RLE WBAT or #) (%) Recommendations To Nursing Amount of Assist Needed 1 Person Assist Discharge Recommendations PT Discharge Recommendations SNF Rehab Transportation Needs at Discharge Wheelchair/Cabulance
--- NOTE | 2023-12-08 15:41 | PM.PN.1 ---
Subjective Subjective Interval history: 88 M in the ICU for presumed hypovolemic shock. Now off pressors, feeling quite well. Major with gross hematuria yesterday markedly improved today. Hg to 6.9, was confused overnight slightly. Now better. IV in hand blew, given symptomatic anemia gave 2U PRBC total with improvement in Hg to 9. Exam Vital Signs (past 8 hours): - 12/08/23 08:00 12/08/23 09:21 12/08/23 10:49 Temperature 96.9 F L 97.4 F L 97.6 F Pulse Rate 83 83 76 Respiratory Rate 20 20 20 Blood Pressure 104/55 L 116/54 L 139/62 Pulse Oximetry 98 12/08/23 11:05 12/08/23 12:00 12/08/23 13:33 Temperature 97.2 F L 97.8 F 97.8 F Pulse Rate 75 74 74 Respiratory Rate 20 20 20 Blood Pressure 130/61 135/65 127/61 Pulse Oximetry 98 Oxygen Delivery Method Room Air Oxygen Flow Rate 0 Narrative Exam Narrative: GEN: no acute distress, well appearing. HEENT: moist mucous membranes, PERRL NECK: trachea midline, no JVD CV: regular rate and rhythm, no murmurs PULM: clear bilaterally ABD: soft, nontender, nondistended, no organomegaly EXT: warm and well perfused with no edema NEURO: awake, alert, oriented, no focal deficits Objective Labs 12/08/23 14:30 12/08/23 04:25 Labs: Laboratory Results - last 24 hr 12/06/23 12/07/23 12/08/23 11:15 16:55 04:25 WBC 8.2 RBC 2.08 L Hgb 6.9 L* Hct 20.2 L* MCV 96.7 MCH 33.0 MCHC 34.1 RDW 13.7 Plt Count 92 L Neut % (Auto) 75.6 H Lymph % (Auto) 12.9 L [place] % (Auto) 9.3 Eos % (Auto) 2.0 Baso % (Auto) 0.2 Neut # (Auto) 6200 Lymph # (Auto) 1100 [place] # (Auto) 800 Eos # (Auto) 200 Baso # (Auto) 0 APTT 32 D Sodium 132 L Potassium 4.5 Chloride 106 Carbon Dioxide 22 BUN 36 H Creatinine 1.19 Estimated GFR 59 L BUN/Creatinine Ratio 30.3 H Glucose 137 H Calcium 7.8 L Troponin I 0.207 H* Blood Type A Positive Antibody Screen Negative Crossmatch See Detail 12/08/23 14:30 WBC RBC Hgb 9.0 L Hct 26.4 L MCV MCH MCHC RDW Plt Count Neut % (Auto) Lymph % (Auto) [place] % (Auto) Eos % (Auto) Baso % (Auto) Neut # (Auto) Lymph # (Auto) [place] # (Auto) Eos # (Auto) Baso # (Auto) APTT Sodium Potassium Chloride Carbon Dioxide BUN Creatinine Estimated GFR BUN/Creatinine Ratio Glucose Calcium Troponin I Blood Type Antibody Screen Crossmatch [facility] Medical History History of COVID-19 Peripheral neuropathy Waters's palsy Depression TIA (transient ischemic attack) Memory changes SEAN treated with BiPAP Myocardial infarction (12/2006) Class 1 obesity due to excess calories with body mass index (BMI) of 31.0 to 31.9 in adult Pre-diabetes Gastric reflux Protein-calorie malnutrition, mild Anemia Chronic anticoagulation Acute GI bleeding Headache Hx of myocardial infarction (Unknown) Hypertension (Unknown) Lumbar disc disease (2012) Polio (1950) Chickenpox Measles Hearing loss (2014) Coronary artery disease (2008) Prostate cancer (2008) Peripheral polyneuropathy (03/06/17) Left foot drop (03/06/17) Vitamin D deficiency (11/21/16) Gastroesophageal reflux disease (06/13/16) Statin intolerance (02/08/16) Spinal stenosis of lumbar region (02/08/16) Pure hypercholesterolemia (02/08/16) History of malignant neoplasm of prostate (04/08/15) Essential hypertension (02/08/16) Coronary artery disease involving [place] coronary artery of [place] heart without angina pectoris (02/08/16) Balance problems (02/08/16) Surgical History Hx of heart artery stent (12/2006) History of prostate surgery (2009) Status post laminectomy Family History Father No problems noted. Mother Cancer Grandfather No problems noted. Grandmother No problems noted. Grandfather No problems noted. Grandmother Cancer Family/Other Stroke Heart attack Coronary artery disease Congestive heart failure Social History marital status: household members: none Smoking Status: Former smoker second hand exposure: No alcohol intake: current substance use type: does not use Assessment & Plan Assessment & Plan narrative: # hypovolemic / hemorrhagic shock in setting of acute blood loss anemia due to surgery -BP down to 83/37 coming out surgery, s/p 4L NS boluses in PACU -levophed now weaned off -echo to r/o cardiogenic was unremarkable. -appreciate teleICU consult, now signed off -continue to hold home BP meds -CTA chest to r/o obstructive shock from PE, as patient was off his eliquis for last 5 days was negative. -Hg 6.9 this AM, hematuria appears improved today. Gave 2 U PRBC total with improvement to 9 today # possible NSTEMI -troponin 0.264, likely from shock / demand -stopped heparin infusion transition to PO apixaban yesterday with TTE being unremarkable and no symptoms today. Hold apixaban for 24 hours today to let hematuria fully improve. Resume tomorrow. -2U PRBC transfusion today. -initial repeat troponin fell, but then increased again., but now downtrended and stopped following. #Chronic HFrEF -EF 40-45% previously in Sep 2023, now improved to normal. -repeat limited echo to check EF was unremarkable with normal EF and no WMA. -hold home empagliflozin, lasix and aldactone # acute hypoxic resp failure -requiring 3L NC following surgery, normally on room air at baseline -CXR shows cardiomegaly and pulm edema -CTA chest to r/o PE was negative. No resolved hypoxia. # persistent AF -hold home eliquis until more stable -currently rate-controlled -tele # CAD s/p stent in 2008 -continue aspirin # HTN -holding BP meds for now # HLD -hold statin for now # BPH with hematuria -major in place, likely hematuria from traumatic insertion. Continue major for now until hematuria improves, urine is now clear. # GERD -pepcid IV BID Code status is full code. DVT prophylaxis with SCDs. Proxy is son who is POA. I have reviewed home meds and used all available resources to reconcile the home meds. Medicine will continue to follow. Thank you for allowing us to participate in the care of this patient. Should you have any questions, do not hesitate to speak with us directly or call us. okay to work with therapies. probable SNF on [place], likely ready in 2 days. Quality VTE Deep Vein Thrombosis/Pulmonary Embolism Present on Admission: No
[2023-12-08] MEDS: TAMSULOSIN 0.4 MG CAPSULE 0.8 MG PO (16:56)
[2023-12-08] MEDS: ATORVASTATIN 20 MG TABLET PO (20:53)
[2023-12-08] MEDS: VENLAFAXINE ER 37.5 MG CAP 75 MG PO (21:33)
[2023-12-09] VITALS (56 sets, daily range): BP systolic 106–177; BP diastolic 49–73; PULSE 65–118; RESP 16–41; TEMP 36.4–36.8; O2SAT 94–99
[2023-12-09 05:21] LABS: Add Manual Diff / Slide Review NO; Basophils Absolute Auto 0 /uL (0-100); Basophils Percent Auto 0.5 % (0-2); Eosinophils Absolute Auto 400 /uL (0-450); Eosinophils Percent Auto 4.6 % (2-4); Hematocrit 26.8 % (41-53); Hemoglobin 9.2 g/dL (13.5-17.5); Lymphocytes Absolute Auto 1400 /uL (1100-4500); Mean Corpuscular HGB Conc 34.4 % (30-36); Mean Corpuscular Hemoglobin 32.4 PG (26-34); Mean Corpuscular Volume 94.1 fL (80-100); Monocytes Absolute Auto 700 /uL (0-900); Monocytes Percent Auto 8.3 % (3-14); Neutrophils Absolute Auto 5700 /uL (1500-7000); Neutrophils Percent Auto 69.6 % (50-75); Platelet Count 91 X10^3/uL (150-400); Red Blood Cell Count 2.85 X10^6/uL (4.5-5.9); Red Cell Distribution Width 14.7 % (11.6-14.8); White Blood Cell Count 8.2 X10^3/uL (4.5-11.0)
[2023-12-09] MEDS: PIPERACILLIN/TAZO 3.375 GM in SODIUM CHLORIDE 0.9% 100 ML IV ×3 (05:32→21:30)
[2023-12-09 05:43] LABS: BUN Creatinine Ratio 33.7 (6-22); Blood Urea Nitrogen 30 mg/dL (9-20); Calcium 8.1 mg/dL (8.4-10.2); Carbon Dioxide 24 mmol/L (22-32); Chloride 108 mmol/L (98-107); Estimated Glomerular Filt Rate > 60 mL/min (>60); Glucose 108 mg/dL (80-110); HEMOLYSIS < 15 (0-50); Potassium 4.8 mmol/L (3.4-5.1); Sodium 133 mmol/L (137-145)
[2023-12-09] MEDS: ACETAMINOPHEN 325 MG TABLET 650 MG PO ×3 (09:01→21:28)
[2023-12-09] MEDS: APIXABAN 5 MG TABLET PO ×2 (09:01→21:28)
[2023-12-09] MEDS: DOXYCYCLINE HYCLATE 100 MG TABLET PO ×2 (09:01→21:30)
[2023-12-09] MEDS: DOCUSATE 100 MG CAPSULE PO ×2 (09:01→21:28)
[2023-12-09] MEDS: GABAPENTIN 300 MG CAPSULE 900 MG PO ×2 (09:01→21:28)
[2023-12-09] MEDS: METOCLOPRAMIDE HCL 5 MG TABLET 10 MG PO ×3 (09:01→21:28)
[2023-12-09] MEDS: ASCORBIC ACID 500 MG TABLET PO (09:01)
[2023-12-09] MEDS: PANTOPRAZOLE DR 20 MG TABLET PO ×2 (09:02→21:28)
[2023-12-09] MEDS: SODIUM CHLORIDE 0.9% FLUSH 10 ML IV ×2 (09:02→21:31)
[2023-12-09] MEDS: OXYBUTYNIN 5 MG ER TAB 10 MG PO (09:02)
--- NOTE | 2023-12-09 11:41 | PT.IPTN ---
Current Diagnoses Unilateral primary osteoarthritis, right hip (12/06/23) Surgery Performed Operation Date: 12/06/23 07:45 Actual Procedures p Total Hip Arthroplasty/Anterior Approach(Right) - Benny Heredia MD Physical Therapy Treatment Note M2 PT-IP Current Condition Start: 12/07/23 13:44 Freq: NEEDED Status: Active Protocol: Document 12/07/23 11:00 AB (Rec: 12/07/23 14:01 AB [id number]) Physical Therapy Current Condition Current Condition Evaluation Date 12/07/23 Treatment Diagnosis s/p R THELMA anterior approach; difficulty in walking Onset Date 12/06/23 M3 PT-IP Subjective Start: 12/07/23 13:44 Freq: NEEDED Status: Active Protocol: Document 12/09/23 11:03 MB (Rec: 12/09/23 11:41 MB [id number]) Subjective Physical Therapy Visit Type Type Treatment Note Visit Start Time 11:03 Visit Stop Time 11:28 Number of STUDENT TRUCK DRIVER Visits 0 Physical Therapy Visit Comments Patient Comments Pt hook lying in bed and agreeable to PT. Therapy Pain Assessment Pain When Pain Assessed During Mobility Pain Present Pain Present Pain Reported Location right hip Intensity 6 Scale Used Shukla-Hernandez (Faces) Pain Management Techniques Distraction,Modification of Treatment,Re-positioning M4 PT-IP Mobility and Gait Start: 12/07/23 13:44 Freq: NEEDED Status: Active Protocol: Document 12/09/23 11:03 MB (Rec: 12/09/23 11:41 MB [id number]) PT-Bed Mobility Assessment Supine to Sit Supine to Sit Contact Guard Assistance,1 Person Assistance,Head of Bed Elevated,Bedrails Scooting Scooting to Edge of Bed Contact Guard Assistance PT-Transfer Assessment Sit to and From Stand Sit to and from Stand Minimal Assistance,Moderate Assistance,1 Person Assistance ,Use of Upper Extremities Equipment Transfer Assistive Device Gait Belt,Front Wheeled Walker Orthotic/Prosthetic Devices or Brace: No Transfers Transfer Destination Chair Transfer Technique Ambulation Transfer Ability Level of Assist Minimal Assistance,Moderate Assistance,1 Person Assistance Comments Mobility Comments PT places gait belt around pt' s right foot so that he can use it to scoot his leg to the right. Pt is able to do this with increased time, effort and cues and pt scoots low into the bed. He is so low that PT can raise right side rail and he can still scoot to the EOB using right side rail and he exits bed sitting between side rail and foot of bed. STS with cues to push up from the bed rails and and not from the walker. Gait Assessment Gait Gait Assistance Required: Contact Guard Assist,Minimum Assistance,1 Person Assist Distance (Feet) 20 Able to Maintain Weight Bearing Status Yes During Gait Assistive Devices Assistive Device Gait Belt,Front Wheeled Walker Orthotic/Prosthetic Devices or Brace: No Gait Deviations General Gait Pattern Antalgic,Decreased Feet Clearance Factors Limiting Gait Function Factors Limiting Gait Function Decreased Activity Tolerance, Decreased Strength,Difficulty Following Directions,Limited Range of Motion,Pain,Poor Balance,Poor Safety Awareness Comments Gait Comments Step-to pattern with cues to move walker first and then right foot and then left foot, antalgic gait pattern PT-Balance Assessment Sitting Balance and Reactions Static Sitting Balance Ability Good Dynamic Sitting Balance Ability Fair Standing Balance and Reactions Static Standing Balance Ability Fair Dynamic Standing Balance Ability Fair Device Used RW M5 PT-IP Objective Assessments Start: 12/07/23 13:44 Freq: NEEDED Status: Active Protocol: Document 12/07/23 11:00 AB (Rec: 12/07/23 14:01 AB [id number]) Orientation Orientation/Cognition Level of Alertness Alert Orientation Name,Place,Situation Safety Awareness Decreased Safety Awareness Memory Description No Deficits Noted Gross Range of Motion Lower Extremity ROM Assessment Within Functional Limits Strength Lower Extremity Strength Assessment Bilaterally Impaired Comments Strength Comments RLE: 3+/5 LLE: 4-/5 except L ankle: 2/5 Sensation Assessment Sensation Sensation Description Numbness Comments Sensation Comments LLE neuropathy per pt Muscle Tone Muscle Tone WNL Yes M6 PT-IP Treatment Start: 12/07/23 13:44 Freq: NEEDED Status: Active Protocol: Document 12/09/23 11:03 MB (Rec: 12/09/23 11:41 MB [id number]) Physical Therapy Treatment Education Education Provided Precautions,Safety Other Treatments Other Treatment Performed Reviewed anterior hip precautions right LE, ed pt in APs and alternating LAQs sitting in recliner and he has decreased right knee extension with LAQ M7 PT-IP Assessment and Plan Start: 12/07/23 13:44 Freq: NEEDED Status: Active Protocol: Document 12/09/23 11:03 MB (Rec: 12/09/23 11:41 MB [id number]) PT Summary Assessment and Plan Potential Rehabilitation Potential Fair Summary Impairments Pain,ROM,Strength,Balance, Coordination,Sensation,Tone, Cognition,Bed Mobility, Transfers,Gait,Activity Tolerance Progress Towards Goals Progressing Toward Goals Assessment Summary Pt does better with bed mobility with use of side rail today. He requires cues for hand placement for transfers and for stepping with gait. His HR is around 115 BPM and he has rapid breathing with activity and increased BP to 177/73 after gait. He does not rate pain when asked but appears to have right hip pain with mobility with calling out and grimace. RLE is edematous and rests in ER in the bed and cues to point toes and knees to the ceiling. Goals Bed Mobility Goal Standby Assistance Transfer Goal Standby Assistance,Front Wheeled Walker Gait Goal Standby Assistance,Front Wheel Walker Gait Distance 100 Other Goals improve bed mobility, transfers, ambulation using FWW ~ 150 ft SBA Days to Meet Goals 5 Frequency of Treatment Frequency Of Treatment Once a Day Treatment Plan Physical Therapy Treatment Plan Bed Mobility Training,Transfer Training,Gait Training, Therapeutic Exercise,Balance Retraining,Post Op Education, Discharge Planning,Hot or Cold Pack,Neuromuscular Re-ed, Coordination Retraining,Manual Therapy Precautions Anterior Hip Precautions No Hip Extension,No Hip External Rotation Weight Bearing Status Weight Bearing Status Weight Bear as Tolerated Allowed Weight Bearing Amount (enter % RLE WBAT or #) (%) Recommendations To Nursing Amount of Assist Needed 1 Person Assist Discharge Recommendations PT Discharge Recommendations SNF Rehab Transportation Needs at Discharge Wheelchair/Cabulance
--- NOTE | 2023-12-09 14:02 | PM.PN.1 ---
Subjective Subjective Interval history: 88 M in the ICU for presumed hypovolemic shock. Now off pressors, feeling quite well. Hg Stable at 9.2 today Exam Vital Signs (past 8 hours): - 12/09/23 06:30 12/09/23 07:00 12/09/23 07:30 Temperature Pulse Rate 79 72 73 Respiratory Rate 30 H 22 17 Blood Pressure Pulse Oximetry 97 97 96 12/09/23 08:00 12/09/23 08:30 12/09/23 09:00 Temperature Pulse Rate 79 72 90 Respiratory Rate 17 16 30 H Blood Pressure Pulse Oximetry 96 97 99 12/09/23 09:30 12/09/23 10:00 12/09/23 10:30 Temperature Pulse Rate 77 71 70 Respiratory Rate 28 H 31 H 28 H Blood Pressure Pulse Oximetry 96 96 96 12/09/23 11:00 12/09/23 11:20 12/09/23 11:20 Temperature Pulse Rate 67 89 Respiratory Rate 20 25 H Blood Pressure 177/73 H Pulse Oximetry 96 99 12/09/23 11:30 12/09/23 12:00 12/09/23 12:30 Temperature 98.2 F Pulse Rate 90 78 73 Respiratory Rate 25 H 27 H 18 Blood Pressure Pulse Oximetry 98 98 97 Oxygen Delivery Method Room Air Oxygen Flow Rate 0 Narrative Exam Narrative: GEN: no acute distress, well appearing. HEENT: moist mucous membranes, PERRL NECK: trachea midline, no JVD CV: regular rate and rhythm, no murmurs PULM: clear bilaterally ABD: soft, nontender, nondistended, no organomegaly EXT: warm and well perfused with no edema NEURO: awake, alert, oriented, no focal deficits Objective Labs 12/09/23 04:20 12/09/23 04:20 Labs: Laboratory Results - last 24 hr 12/08/23 12/09/23 14:30 04:20 WBC 8.2 RBC 2.85 L Hgb 9.0 L 9.2 L Hct 26.4 L 26.8 L MCV 94.1 MCH 32.4 MCHC 34.4 RDW 14.7 Plt Count 91 L Neut % (Auto) 69.6 Lymph % (Auto) 17.0 L [place] % (Auto) 8.3 Eos % (Auto) 4.6 H Baso % (Auto) 0.5 Neut # (Auto) 5700 Lymph # (Auto) 1400 [place] # (Auto) 700 Eos # (Auto) 400 Baso # (Auto) 0 Sodium 133 L Potassium 4.8 Chloride 108 H Carbon Dioxide 24 BUN 30 H Creatinine 0.89 Estimated GFR > 60 BUN/Creatinine Ratio 33.7 H Glucose 108 Calcium 8.1 L [facility] Medical History History of COVID-19 Peripheral neuropathy Waters's palsy Depression TIA (transient ischemic attack) Memory changes SEAN treated with BiPAP Myocardial infarction (12/2006) Class 1 obesity due to excess calories with body mass index (BMI) of 31.0 to 31.9 in adult Pre-diabetes Gastric reflux Protein-calorie malnutrition, mild Anemia Chronic anticoagulation Acute GI bleeding Headache Hx of myocardial infarction (Unknown) Hypertension (Unknown) Lumbar disc disease (2012) Polio (1949) Chickenpox Measles Hearing loss (2014) Coronary artery disease (2008) Prostate cancer (2008) Peripheral polyneuropathy (03/06/17) Left foot drop (03/06/17) Vitamin D deficiency (11/21/16) Gastroesophageal reflux disease (06/13/16) Statin intolerance (02/08/16) Spinal stenosis of lumbar region (02/08/16) Pure hypercholesterolemia (02/08/16) History of malignant neoplasm of prostate (04/08/15) Essential hypertension (02/08/16) Coronary artery disease involving [place] coronary artery of [place] heart without angina pectoris (02/08/16) Balance problems (02/08/16) Surgical History Hx of heart artery stent (12/2006) History of prostate surgery (2009) Status post laminectomy Family History Father No problems noted. Mother Cancer Grandfather No problems noted. Grandmother No problems noted. Grandfather No problems noted. Grandmother Cancer Family/Other Stroke Heart attack Coronary artery disease Congestive heart failure Social History marital status: household members: none Smoking Status: Former smoker second hand exposure: No alcohol intake: current substance use type: does not use Assessment & Plan Assessment & Plan narrative: # hypovolemic / hemorrhagic shock in setting of acute blood loss anemia due to surgery -BP down to 83/37 coming out surgery, s/p 4L NS boluses in PACU -levophed now weaned off -echo to r/o cardiogenic was unremarkable. -appreciate teleICU consult, now signed off -continue to hold home BP meds -CTA chest to r/o obstructive shock from PE, as patient was off his eliquis for last 5 days was negative. -Hg 6.9 yesterday, hematuria appears improved today. Gave 2 U PRBC total with improvement to 9 and now stable at 9.2. # possible NSTEMI -troponin 0.264, likely from shock / demand -stopped heparin infusion transition to PO apixaban yesterday with TTE being unremarkable and no symptoms today. Held apixaban for 24 hours today to let hematuria fully improve. Resumed today. -2U PRBC transfusion on 12/07. -initial repeat troponin fell, but then increased again., but now downtrended and stopped following. #Chronic HFpEF -EF 40-45% previously in Sep 2023, now improved to normal. -repeat limited echo to check EF was unremarkable with normal EF and no WMA. -hold home empagliflozin, aldactone # acute hypoxic resp failure -requiring 3L NC following surgery, normally on room air at baseline -CXR shows cardiomegaly and pulm edema -CTA chest to r/o PE was negative. Now resolved hypoxia. # persistent AF -resume home eliquis today as noted above -currently rate-controlled -tele # CAD s/p stent in 2008 -continue aspirin, apixaban # HTN -resume home amlodipine and lisinopril today. Resume home aldactone tomorrow. # HLD -continue home statin # BPH with hematuria -can discontinue major likely tomorrow, keep today with previous hematuria and restarting eliquis. # GERD -pepcid PO Code status is full code. DVT prophylaxis with SCDs. Proxy is son who is POA. I have reviewed home meds and used all available resources to reconcile the home meds. Medicine will continue to follow. Thank you for allowing us to participate in the care of this patient. Should you have any questions, do not hesitate to speak with us directly or call us. okay to work with therapies. probable SNF on dishcar[place], likely ready in 1-2 more days. Quality VTE Deep Vein Thrombosis/Pulmonary Embolism Present on Admission: No
--- NOTE | 2023-12-09 14:03 | CM.DPNOTE ---
DCP Note HEALTH DIRECTOR reviewed EMR. Per hospitalist in morning rounds, anticipate pt will be stable for dc to SNF tomorrow. HEALTH DIRECTOR met with pt in room. Pleasant and chatty. Agreeable to [facility] whenever. Plan: anticipate [facility] when medically stable. Per previous CM notes, able to accept Sunday. transport pending. CM team will follow closely. EFRAIN Snyder
[2023-12-09] MEDS: AMLODIPINE 5 MG TABLET 10 MG PO (14:17)
[2023-12-09] MEDS: TAMSULOSIN 0.4 MG CAPSULE 0.8 MG PO (18:03)
[2023-12-09] MEDS: VENLAFAXINE ER 37.5 MG CAP 75 MG PO (21:28)
[2023-12-09] MEDS: lisinopriL 10 MG TABLET PO (21:29)
[2023-12-09] MEDS: ATORVASTATIN 20 MG TABLET PO (21:29)
[2023-12-10] VITALS (25 sets, daily range): BP systolic 106–128; BP diastolic 50–60; PULSE 69–88; RESP 14–31; TEMP 36.4; O2SAT 95–98
[2023-12-10] MEDS: TRAMADOL 50 MG TABLET PO ×2 (00:07→10:46)
[2023-12-10 05:08] LABS: Add Manual Diff / Slide Review NO; Basophils Absolute Auto 0 /uL (0-100); Basophils Percent Auto 0.3 % (0-2); Eosinophils Absolute Auto 300 /uL (0-450); Eosinophils Percent Auto 3.7 % (2-4); Hematocrit 26.9 % (41-53); Hemoglobin 9.2 g/dL (13.5-17.5); Lymphocytes Absolute Auto 1500 /uL (1100-4500); Lymphocytes Percent Auto 16.2 % (25-40); Mean Corpuscular HGB Conc 34.3 % (30-36); Mean Corpuscular Hemoglobin 32.5 PG (26-34); Monocytes Absolute Auto 700 /uL (0-900); Monocytes Percent Auto 7.4 % (3-14); Neutrophils Absolute Auto 6500 /uL (1500-7000); Neutrophils Percent Auto 72.4 % (50-75); Platelet Count 116 X10^3/uL (150-400); Red Blood Cell Count 2.83 X10^6/uL (4.5-5.9); Red Cell Distribution Width 14.6 % (11.6-14.8)
[2023-12-10 05:16] LABS: BUN Creatinine Ratio 32.6 (6-22); Blood Urea Nitrogen 28 mg/dL (9-20); Calcium 8.3 mg/dL (8.4-10.2); Carbon Dioxide 24 mmol/L (22-32); Chloride 108 mmol/L (98-107); Estimated Glomerular Filt Rate > 60 mL/min (>60); Glucose 113 mg/dL (80-110); HEMOLYSIS < 15 (0-50); Potassium 4.7 mmol/L (3.4-5.1); Sodium 134 mmol/L (137-145)
[2023-12-10] MEDS: PIPERACILLIN/TAZO 3.375 GM in SODIUM CHLORIDE 0.9% 100 ML IV (05:21)
--- NOTE | 2023-12-10 07:18 | PM.DS.1 ---
History of Present Illness History of Present Illness Date Patient Seen: 12/10/23 Time Patient Seen: 07:18 Chief complaint: Right Total Hip Arthroplasty/Anterior Narrative: Operative Date/Time/Diagnoses Date of procedure: 12/06/23 Pre-op diagnosis: Right hip arthritis Post-op diagnosis: same Procedure & Clinicians Procedure: Right hybrid total hip arthroplasty with uncemented acetabular component and cemented polished tapered slip femoral component Same procedure as scheduled: Yes Surgeon: Benny Heredia [facility] Director: Arturo Mcgowan Anesthesia Type: General and Local Operative Notes Estimated Blood Loss (mL): 500 Procedure in detail: Right Hybrid Direct Anterior Total Hip Arthroplasty with Uncemented Acetabular Component and Cemented Femoral Component: Implants: Depuy [place] Gription size 62 cup? Depuy C Stem femoral stem size 3 high offset? 36 mm +5 ceramic femoral head? Discharge Providers Provider Date of admission: 12/06/23 13:31 Discharge Date: 12/10/23 Primary care physician: YOANDY Michaud Consults: 12/06/23 06:00 Consult to Anesthesiology Routine Comment: Consulting Provider: Anesthesiologist Reason for consultation: Regional block for post operative pain control 12/06/23 13:18 Consult to Tele-delivery representative Routine Comment: Consulting Provider: [employer] Reason for consultation: Spanish Interpreter/Translator services 12/06/23 14:37 Consult to Hospitalist Service Routine Comment: Consulting Provider: Fletcher Miles Reason for consultation: post-op shock 12/06/23 14:40 Consult to Discharge Planning Routine Comment: Consult to Occupational Therapy Evaluate & Treat Comment: Physician Instructions: Evaluate and treat Consult to Physical Therapy Evaluate & Treat Comment: Physician Instructions: post op THELMA protocol Discharge provider: Ceci Ryder PA-C Summary Hospital Course Discharge Diagnosis: Right hip osteoarthritis, s/p right total hip arthroplasty Acute hypovolemic/hemorrhagic shock d/t acute surgical blood loss Possible NSTEMI d/t hypovolemia/shock Acute hypoxic respiratory failure Hospital Course: Mr Ward was transferred to the ICU following surgery. His postoperative course required resuscitation w/ IVF and tranfusion of PRBCs during his stay. Despite initial hemodynamic instability, he improved with interventions. On the morning of POD# 4, he had been off pressors for 3 days and his H/H had stabilized. He was feeling well and said he had been ambulating w/ PT, though this remains slow and painful. His pain was well-controlled with oral medication and ice. Exam Vital Signs (past 8 hours): - 12/10/23 00:00 12/10/23 04:00 Temperature 97.5 F L 97.6 F Pulse Rate 75 79 Respiratory Rate 18 16 Blood Pressure 109/50 L 128/59 L Pulse Oximetry 95 97 Oxygen Flow Rate 0 0 Oxygen Delivery Method Room Air Oxygen Flow Rate 0 Narrative Exam Narrative: 3/5 strength in hip flexors, quadriceps, hamstrings on right; 5/5 DF, PF, EHL. Sensation to light touch intact throughout RLE. Calf soft, compressible, nontender. HEAVEN dressing functioning, CDI. 3/5 DF on left; he has a known foot drop on this side. Major w/ clear, yellow urine; no signs of hematuria. Objective Labs 12/10/23 04:05 12/10/23 04:05 Labs: Laboratory Results - last 24 hr 12/10/23 04:05 WBC 9.0 RBC 2.83 L Hgb 9.2 L Hct 26.9 L MCV 95.0 MCH 32.5 MCHC 34.3 RDW 14.6 Plt Count 116 L Neut % (Auto) 72.4 Lymph % (Auto) 16.2 L [place] % (Auto) 7.4 Eos % (Auto) 3.7 Baso % (Auto) 0.3 Neut # (Auto) 6500 Lymph # (Auto) 1500 [place] # (Auto) 700 Eos # (Auto) 300 Baso # (Auto) 0 Sodium 134 L Potassium 4.7 Chloride 108 H Carbon Dioxide 24 BUN 28 H Creatinine 0.86 Estimated GFR > 60 BUN/Creatinine Ratio 32.6 H Glucose 113 H Calcium 8.3 L PFSH Medical History History of COVID-19 Peripheral neuropathy Waters's palsy Depression TIA (transient ischemic attack) Memory changes SEAN treated with BiPAP Myocardial infarction (12/2006) Class 1 obesity due to excess calories with body mass index (BMI) of 31.0 to 31.9 in adult Pre-diabetes Gastric reflux Protein-calorie malnutrition, mild Anemia Chronic anticoagulation Acute GI bleeding Headache Hx of myocardial infarction (Unknown) Hypertension (Unknown) Lumbar disc disease (2012) Polio (1950) Chickenpox Measles Hearing loss (2014) Coronary artery disease (2009) Prostate cancer (2009) Peripheral polyneuropathy (03/06/17) Left foot drop (03/06/17) Vitamin D deficiency (11/21/16) Gastroesophageal reflux disease (06/13/16) Statin intolerance (02/08/16) Spinal stenosis of lumbar region (02/08/16) Pure hypercholesterolemia (02/08/16) History of malignant neoplasm of prostate (04/08/15) Essential hypertension (02/08/16) Coronary artery disease involving [place] coronary artery of [place] heart without angina pectoris (02/08/16) Balance problems (02/08/16) Surgical History Hx of heart artery stent (12/2006) History of prostate surgery (2009) Status post laminectomy Family History Father No problems noted. Mother Cancer Grandfather No problems noted. Grandmother No problems noted. Grandfather No problems noted. Grandmother Cancer Family/Other Stroke Heart attack Coronary artery disease Congestive heart failure Social History marital status: household members: none Smoking Status: Former smoker second hand exposure: No alcohol intake: current substance use type: does not use Discharge Assessment & Plan Assessment and Plan Assessment: Right hip osteoarthritis, s/p right total hip arthroplasty Acute hypovolemic/hemorrhagic shock d/t acute surgical blood loss Possible NSTEMI d/t hypovolemia/shock Acute hypoxic respiratory failure Plan of Treatment: Pt can d/c to SNF when medically stable per hospitalist service. Will d/c major; ideally, pt will be voiding independently prior to d/c to SNF. Multimodal pain control, anterior hip precautions, follow up in office in 2 weeks as scheduled. Will continue Eliquis as per preop for VTE prophylaxis. Discharge Plan Discharge Plan Patient Disposition: SNF Transfer to: [facility] Discharge orders & Medications Prescriptions: New acetaminophen 325 mg Tablet 650 mg PO Q6H Qty: 1 0RF docusate sodium 100 mg Capsule 100 mg PO BID PRN (Reason: constipation) Qty: 1 0RF tramadol 50 mg Tablet 50 mg PO Q4-6H PRN (Reason: Pain, Moderate (4-6)) Qty: 60 0RF Rx Instructions: Pt may take 50-100mg (1-2 tabs) q 4-6H PRN nyfyrght-ki-wtxdam pain Continued alpha lipoic acid 600 mg capsule 600 mg PO BEDTIME tamsulosin [Flomax] 0.4 MG capsule,extended release 24hr 0.8 mg PO QPM Qty: 0 CoQ-10 400 mg PO QPM Qty: 0 ascorbic acid (vitamin C) 500 MG tablet 500 mg PO DAILY Qty: 0 [VITAMIN K2] 100 mcg PO QPM Qty: 0 Patient Comments: vitamin K2 MK7 c MenaQ7 nitroglycerin 0.4 mg tablet, sublingual 0.4 mg SL Q5-15M PRN (Reason: Chest Pain) Qty: 20 11RF gabapentin 300 mg capsule 900 mg PO BID Qty: 360 2RF Rx Instructions: Managed by Dr Arndt/Neurologist venlafaxine 37.5 mg capsule,extended release 24hr 75 mg PO BEDTIME Qty: 180 3RF Eliquis 5 mg tablet 5 mg PO BID Hold Instructions: sugery Vitamin D3 1,500 unit See Rx Instructions PO DAILY Rx Instructions: 5000-1000IU daily orally daily; amlodipine 10 mg tablet 5 mg PO BEDTIME Patient Comments: takes 5 mg in the evening Rx Instructions: Report pressures to PCP furosemide [Lasix] 20 mg tablet 40 mg PO DAILY PRN (Reason: Edema) spironolactone 25 mg tablet 25 mg PO DAILY Jardiance 10 mg tablet 10 mg PO BEDTIME lisinopril 20 mg tablet 10 mg PO QPM rosuvastatin [Crestor] 5 mg tablet 10 mg PO .COMPLEX Qty: 135 3RF Rx Instructions: 10 mg orally alternating every other day with 5mg, for hyperlipidemia; baclofen 5 mg tablet 5 mg PO BID PRN (Reason: muscle spasm) Qty: 60 2RF Trulicity 0.75 mg/0.5 mL pen injector 0.75 mg SUBCUT QWEEK Qty: 2 0RF Hold Instructions: surgery Patient Comments: Will not start until after surgery Rx Instructions: Inject 0.5mL (0.75mg) SQ weekly x4 weeks. ondansetron 4 mg tablet,disintegrating 4 mg PO Q8H PRN (Reason: nausea and vomiting) Qty: 30 3RF metoclopramide HCl [Reglan] 10 mg tablet 10 mg PO QID 30 Days Qty: 120 3RF Rx Instructions: Take 1 tab 30 mins prior to meals and at bedtime, HOLD for diarrhea omeprazole 20 mg capsule,delayed release(DR/EC) 20 mg PO BID Qty: 180 3RF Rx Instructions: Take 1 cap by mouth twice daily trospium 20 mg Tablet 20 mg PO BID Rx Instructions: administer on an empty stomach venlafaxine 25 mg tablet 25 mg PO DAILY lisinopril 10 mg tablet 10 mg PO DAILY venlafaxine 50 mg tablet 50 mg PO DAILY (DME) [employer] Auto See Rx Instructions .Route .MEDSUPPLY Rx Instructions: CPAP Min: 6 Max: 16 DME: ROTECH ABAD: 02/09/21 Discontinued amlodipine 5 mg tablet 5 mg PO DAILY Follow up/Referrals: Marbella Duenas ARNP [Primary Care Provider] - Benny Heredia MD [Physician] - 12/18/23 2:30 pm (Follow up w/ Omkar Barnett PA-C, at [facility] office in [place]) Diet/Activity/Treatments Diet: Diet as Tolerated Activity: Weightbearing as tolerated to right leg. Anterior hip precautions. Cold/Heat Therapy: Ice to hip as needed for pain. Skin/Wound/Dressing Care Report to your healthcare provider any signs of infection, such as:: chills, fever, night sweats, unusual drainage and unusual redness Dressing: May shower. Leave dressing in place until follow up in office. In 5-7 days, batteries will , at which point you can cut off battery pack and dispose of it. No bathing or otherwise soaking incision. Call the office if the dressing becomes saturated inside. [facility] Rehab type: Physical therapy and Occupational therapy Visit Report/Discharge Packet Instructions: DI for Hip Replacement, DI for Prescription Opioid Use Stand Alone Forms: Patient Portal/API, Surgery Discharge Discharge Data Primary Care Provider: Marbella Duenas VTE Deep Vein Thrombosis/Pulmonary Embolism Present on Admission: No
--- NOTE | 2023-12-10 07:48 | PM.DS.1 ---
History of Present Illness History of Present Illness Date Patient Seen: 12/10/23 Chief complaint: Right Total Hip Arthroplasty/Anterior Narrative: Per initial consulting provider, Kenneth Ward Jr is a 88yo M with PMH of HFrEF of 40-45% in Sep 2023, CAD s/p stent in 2008, HTN, HLD, persistent A-fib on eliquis, NSVT, obesity, TIA, GERD, BPH, and SEAN on bipap who presents post-op from R total hip surgery with undifferentiated shock. Medicine consulted for management. Following lengthy R hip replacement while in PACU he developed shock with BP down to 70's systolic. Started on levophed and vasopressin. Central line and art line placed by anesthesia. Moved up to the ICU and once there he reports he feels like a million bucks. Has been weaned off vaso and currently on minimal levophed. No leukocytosis and Hgb dropped from 12 to 8.9 postop. He is very pale. He denies significant pain. His son is at bedside. Denies cough, CP, fever, abd pain or diarrhea. They report that he presented to the ED a week prior with vomiting of dark liquid. Concern for possible UGIB, but patient has been taking pepto-bismol which was also causing dark stools. No hemoptysis. He was off his eliquis for a week prior to his surgery. Discharge Providers Provider Date of admission: 12/06/23 13:31 Discharge Date: 12/10/23 Primary care physician: YOANDY Michaud Consults: 12/06/23 06:00 Consult to Anesthesiology Routine Comment: Consulting Provider: Anesthesiologist Reason for consultation: Regional block for post operative pain control 12/06/23 13:18 Consult to Tele-refinery operator reforming unit Routine Comment: Consulting Provider: Yulisa Tele-intensivists Reason for consultation: Hvac Residential Service Technician services 12/06/23 14:37 Consult to Hospitalist Service Routine Comment: Consulting Provider: Fletcher Miles Reason for consultation: post-op shock 12/06/23 14:40 Consult to Discharge Planning Routine Comment: Consult to Occupational Therapy Evaluate & Treat Comment: Physician Instructions: Evaluate and treat Consult to Physical Therapy Evaluate & Treat Comment: Physician Instructions: post op THELMA protocol Discharge provider: Brandon Cervantes DO Summary Hospital Course Discharge Diagnosis: # hypovolemic / hemorrhagic shock in setting of acute blood loss anemia due to surgery # possible NSTEMI, likely demand #Chronic HFpEF # acute hypoxic resp failure # persistent AF # CAD s/p stent in 2008 # HTN # HLD # BPH with hematuria # GERD Hospital Course: This discharge summary is intended to serve as an addition to the orthopedics discharge summary. Kenneth Ward Jr is a 88yo M with PMH of HFrEF of 40-45% in Sep 2023, CAD s/p stent in 2008, HTN, HLD, persistent A-fib on eliquis, NSVT, obesity, TIA, GERD, BPH, and SEAN on bipap who presented post-op from R total hip surgery with undifferentiated shock. He was brought to the ICU, started on pressor support. It is still unclear if shock was cardiogenic, hypovolemic/hemorrhage, or septic at this time. He had possible PNA on imaging, was started on zosyn and doxy, but this is probably the least likely etiology in retrospect. This was noted on CT angio performed, which ruled out PE as the etiology for his shock. He also developed elevated troponins to 0.264. Echocardiogram later showed no changes compared to prior studies, so heparin infusion was stopped as the patient was also having hematuria after major catheter insertion. He was transitioned back to home apixaban, but this was stopped for 1 day when Hg dropped to 6.9 and he was given 2U PRBC. He was hemodynamically stable at that time. Initial shock is most likely from hypovolemic / hemorrhagic shock due to blood loss from surgery, but was hemodynamically stable when transfused. Secondary blood loss is likely from hematuria due to traumatic major catheter placement. His urine did clear after a couple of days, now yellow and clear. His home apixaban was reinitiated with stable h/h. Home amlodipine was reduced from 15 mg total daily to 10 mg at the time of discharge. His BP is well controlled today. He was discharged to SNF for ongoing therapies after hip surgery and subsequent treatment for shock. Time Spent with Patient Time spent: Greater than 30 minutes Exam Vital Signs (past 8 hours): - 12/10/23 00:00 12/10/23 04:00 Temperature 97.5 F L 97.6 F Pulse Rate 75 79 Respiratory Rate 18 16 Blood Pressure 109/50 L 128/59 L Pulse Oximetry 95 97 Oxygen Flow Rate 0 0 Oxygen Delivery Method Room Air Oxygen Flow Rate 0 Narrative Exam Narrative: GEN: no acute distress, well appearing. HEENT: moist mucous membranes, PERRL NECK: trachea midline, no JVD CV: regular rate and rhythm, no murmurs PULM: clear bilaterally ABD: soft, nontender, nondistended, no organomegaly EXT: warm and well perfused with no edema NEURO: awake, alert, oriented, no focal deficits Objective Labs 12/10/23 04:05 12/10/23 04:05 Labs: Laboratory Results - last 24 hr 12/10/23 04:05 WBC 9.0 RBC 2.83 L Hgb 9.2 L Hct 26.9 L MCV 95.0 MCH 32.5 MCHC 34.3 RDW 14.6 Plt Count 116 L Neut % (Auto) 72.4 Lymph % (Auto) 16.2 L [place] % (Auto) 7.4 Eos % (Auto) 3.7 Baso % (Auto) 0.3 Neut # (Auto) 6500 Lymph # (Auto) 1500 [place] # (Auto) 700 Eos # (Auto) 300 Baso # (Auto) 0 Sodium 134 L Potassium 4.7 Chloride 108 H Carbon Dioxide 24 BUN 28 H Creatinine 0.86 Estimated GFR > 60 BUN/Creatinine Ratio 32.6 H Glucose 113 H Calcium 8.3 L PFSH Medical History History of COVID-19 Peripheral neuropathy Waters's palsy Depression TIA (transient ischemic attack) Memory changes SEAN treated with BiPAP Myocardial infarction (12/2006) Class 1 obesity due to excess calories with body mass index (BMI) of 31.0 to 31.9 in adult Pre-diabetes Gastric reflux Protein-calorie malnutrition, mild Anemia Chronic anticoagulation Acute GI bleeding Headache Hx of myocardial infarction (Unknown) Hypertension (Unknown) Lumbar disc disease (2012) Polio (1950) Chickenpox Measles Hearing loss (2014) Coronary artery disease (2008) Prostate cancer (2008) Peripheral polyneuropathy (03/06/17) Left foot drop (03/06/17) Vitamin D deficiency (11/21/16) Gastroesophageal reflux disease (06/13/16) Statin intolerance (02/08/16) Spinal stenosis of lumbar region (02/08/16) Pure hypercholesterolemia (02/08/16) History of malignant neoplasm of prostate (04/08/15) Essential hypertension (02/08/16) Coronary artery disease involving [place] coronary artery of [place] heart without angina pectoris (02/08/16) Balance problems (02/08/16) Surgical History Hx of heart artery stent (12/2006) History of prostate surgery (2009) Status post laminectomy Family History Father No problems noted. Mother Cancer Grandfather No problems noted. Grandmother No problems noted. Grandfather No problems noted. Grandmother Cancer Family/Other Stroke Heart attack Coronary artery disease Congestive heart failure Social History marital status: household members: none Smoking Status: Former smoker second hand exposure: No alcohol intake: current substance use type: does not use Discharge Assessment & Plan Assessment and Plan Assessment: Right hip osteoarthritis, s/p right total hip arthroplasty Acute hypovolemic/hemorrhagic shock d/t acute surgical blood loss Possible NSTEMI d/t hypovolemia/shock Acute hypoxic respiratory failure Plan of Treatment: Pt can d/c to SNF when medically stable per hospitalist service. Will d/c major; ideally, pt will be voiding independently prior to d/c to SNF. Multimodal pain control, anterior hip precautions, follow up in office in 2 weeks as scheduled. Will continue Eliquis as per preop for VTE prophylaxis. Discharge Plan Discharge Plan Patient Disposition: SNF Transfer to: [facility] Discharge orders & Medications Prescriptions: New acetaminophen 325 mg Tablet 650 mg PO Q6H Qty: 1 0RF docusate sodium 100 mg Capsule 100 mg PO BID PRN (Reason: constipation) Qty: 1 0RF tramadol 50 mg Tablet 50 mg PO Q4-6H PRN (Reason: Pain, Moderate (4-6)) Qty: 60 0RF Rx Instructions: Pt may take 50-100mg (1-2 tabs) q 4-6H PRN [id number] pain Continued alpha lipoic acid 600 mg capsule 600 mg PO BEDTIME tamsulosin [Flomax] 0.4 MG capsule,extended release 24hr 0.8 mg PO QPM Qty: 0 CoQ-10 400 mg PO QPM Qty: 0 ascorbic acid (vitamin C) 500 MG tablet 500 mg PO DAILY Qty: 0 [VITAMIN K2] 100 mcg PO QPM Qty: 0 Patient Comments: vitamin K2 MK7 c MenaQ7 nitroglycerin 0.4 mg tablet, sublingual 0.4 mg SL Q5-15M PRN (Reason: Chest Pain) Qty: 20 11RF gabapentin 300 mg capsule 900 mg PO BID Qty: 360 2RF Rx Instructions: Managed by Dr Arndt/Neurologist venlafaxine 37.5 mg capsule,extended release 24hr 75 mg PO BEDTIME Qty: 180 3RF Eliquis 5 mg tablet 5 mg PO BID Hold Instructions: sugery Vitamin D3 1,500 unit See Rx Instructions PO DAILY Rx Instructions: 5000-1000IU daily orally daily; amlodipine 10 mg tablet 5 mg PO BEDTIME Patient Comments: takes 5 mg in the evening Rx Instructions: Report pressures to PCP furosemide [Lasix] 20 mg tablet 40 mg PO DAILY PRN (Reason: Edema) spironolactone 25 mg tablet 25 mg PO DAILY Jardiance 10 mg tablet 10 mg PO BEDTIME lisinopril 20 mg tablet 10 mg PO QPM rosuvastatin [Crestor] 5 mg tablet 10 mg PO .COMPLEX Qty: 135 3RF Rx Instructions: 10 mg orally alternating every other day with 5mg, for hyperlipidemia; baclofen 5 mg tablet 5 mg PO BID PRN (Reason: muscle spasm) Qty: 60 2RF Trulicity 0.75 mg/0.5 mL pen injector 0.75 mg SUBCUT QWEEK Qty: 2 0RF Hold Instructions: surgery Patient Comments: Will not start until after surgery Rx Instructions: Inject 0.5mL (0.75mg) SQ weekly x4 weeks. ondansetron 4 mg tablet,disintegrating 4 mg PO Q8H PRN (Reason: nausea and vomiting) Qty: 30 3RF metoclopramide HCl [Reglan] 10 mg tablet 10 mg PO QID 30 Days Qty: 120 3RF Rx Instructions: Take 1 tab 30 mins prior to meals and at bedtime, HOLD for diarrhea omeprazole 20 mg capsule,delayed release(DR/EC) 20 mg PO BID Qty: 180 3RF Rx Instructions: Take 1 cap by mouth twice daily trospium 20 mg Tablet 20 mg PO BID Rx Instructions: administer on an empty stomach venlafaxine 25 mg tablet 25 mg PO DAILY lisinopril 10 mg tablet 10 mg PO DAILY venlafaxine 50 mg tablet 50 mg PO DAILY (DME) [employer] Auto See Rx Instructions .Route .MEDSUPPLY Rx Instructions: CPAP Min: 6 Max: 16 DME: ROTECH ABAD: 02/09/21 Discontinued amlodipine 5 mg tablet 5 mg PO DAILY Follow up/Referrals: Marbella Duenas ARNP [Primary Care Provider] - Benny Heredia MD [Physician] - 12/18/23 2:30 pm (Follow up w/ Omkar Barnett PA-C, at [facility] office in [place]) Diet/Activity/Treatments Diet: Diet as Tolerated Activity: Weightbearing as tolerated to right leg. Anterior hip precautions. Cold/Heat Therapy: Ice to hip as needed for pain. Skin/Wound/Dressing Care Report to your healthcare provider any signs of infection, such as:: chills, fever, night sweats, unusual drainage and unusual redness Dressing: May shower. Leave dressing in place until follow up in office. In 5-7 days, batteries will , at which point you can cut off battery pack and dispose of it. No bathing or otherwise soaking incision. Call the office if the dressing becomes saturated inside. [facility] Rehab type: Physical therapy and Occupational therapy Visit Report/Discharge Packet Instructions: DI for Hip Replacement, DI for Prescription Opioid Use Stand Alone Forms: Patient Portal/API, Surgery Discharge Discharge Data Primary Care Provider: Marbella Duenas VTE Deep Vein Thrombosis/Pulmonary Embolism Present on Admission: No
[2023-12-10] MEDS: DOCUSATE 100 MG CAPSULE PO (08:22)
[2023-12-10] MEDS: GABAPENTIN 300 MG CAPSULE 900 MG PO (08:22)
[2023-12-10] MEDS: METOCLOPRAMIDE HCL 5 MG TABLET 10 MG PO (08:22)
[2023-12-10] MEDS: OXYBUTYNIN 5 MG ER TAB 10 MG PO (08:23)
[2023-12-10] MEDS: APIXABAN 5 MG TABLET PO (08:23)
[2023-12-10] MEDS: DOXYCYCLINE HYCLATE 100 MG TABLET PO (08:23)
[2023-12-10] MEDS: ACETAMINOPHEN 325 MG TABLET 650 MG PO (08:23)
[2023-12-10] MEDS: ASCORBIC ACID 500 MG TABLET PO (08:23)
[2023-12-10] MEDS: SPIRONOLACTONE 25 MG TABLET PO (08:23)
[2023-12-10] MEDS: PANTOPRAZOLE DR 20 MG TABLET PO (08:23)
[2023-12-10] MEDS: SODIUM CHLORIDE 0.9% FLUSH 10 ML IV (08:25)
[2023-12-10] MEDS: lisinopriL 10 MG TABLET PO (08:26)
[2023-12-10] MEDS: AMLODIPINE 5 MG TABLET 10 MG PO (08:26)
[2023-12-10] MEDS: polyethylene glycoL 3350 17 GM POWD.PACK PO (09:00)
--- NOTE | 2023-12-10 10:10 | PC.NURSE ---
Addendum entered by Coby Minaya R.N. 12/10/23 10:25: Spoke with pt, pt denies ever having incontinence of bowel or bladder (but night RN reported incontinent episode). Also on RN's green house manager heard heart murmur. Both of these items reported to provider. Original Note: RN called report to Diya at [facility], clearly communicated that Young was removed at 0730, pt has clean brief on, and that 6h after Young removal would be 1330 and 8h would be 1530. This RN communicated those specific times that pt was due to void from Young removal and also communicated to pt the importance of voiding after Young removal.
--- NOTE | 2023-12-10 10:43 | CM.DPNOTE ---
Addendum entered by EFRAIN Snyder 12/10/23 13:33: From Quin, pt's home med was left here on accident. RN retrieved it from pharmacy, walked it over to [facility], and handed it to Quin. KALEN Addendum entered by Marisabel Barbosaaster, EXTRACTOR PLANT OPERATOR 12/10/23 12:02: Per Quin at , need pt's effexor on PASRR. EXTRACTOR PLANT OPERATOR completed updated PASRR, hospitalist signed exemption, and EXTRACTOR PLANT OPERATOR emailed it to Quin. KALEN Original Note: DCP Note EXTRACTOR PLANT OPERATOR reviewed EMR. Per hospitalist/ortho team, cleared to dc to SNF today. EXTRACTOR PLANT OPERATOR spoke with Quin at . Can take pt today around 11am. EXTRACTOR PLANT OPERATOR emailed signed med list and PASRR to quin. ALEX Bey kindly helped to email order and dc sum. EXTRACTOR PLANT OPERATOR updated SALES AGENT/RN. EXTRACTOR PLANT OPERATOR placed PASRR and signed meds in folder. EXTRACTOR PLANT OPERATOR gave RN report number. EXTRACTOR PLANT OPERATOR met with pt and dtr Susie in room. EXTRACTOR PLANT OPERATOR answered questions to best of ability. Pt and dtr agreeable to plan. Dtr concerned about BM- nursing staff confirmed pt had a BM last night. Dtr appreciative of the update. Plan- anticipate dc to [facility] today at 11am. CM team will continue to follow as needed. Marisabel Fernández, EFRAIN
--- NOTE | 2023-12-10 11:21 | PC.NURSE ---
Discharge: Pt assisted in transferring from bed to facility wheelchair by PCT. Absence of IV and telemetry. SNF packet given to facility assistance representative. Pt wheeled via w/c by facility assistance representative at approximately 1120.
== END 2023-12-10 11:33 | DRG 469 ==
LOC: OR 12-07 12:54 → ICU 12-07 12:54
PROVIDERS: Internal Medicine; Internal Medicine Critical Care Medicine; Student in an Organized Health Care Education/Training Program; Admitting Provider Orthopaedic Surgery Adult Reconstructive Orthopaedic Surgery; Family Provider Student in an Organized Health Care Education/Training Program; PCP Nurse Practitioner; Referring Provider Orthopaedic Surgery Adult Reconstructive Orthopaedic Surgery; Visit Provider Orthopaedic Surgery Adult Reconstructive Orthopaedic Surgery
PROC: 0SR9039 Replacement of Right Hip Joint with Ceramic Synthetic Substitute, Cemented, Open Approach (ICD-10-PCS; CPT 27130; principal; 2023-12-06 07:45)
DX: M16.11 Unilateral primary osteoarthritis, right hip (principal); I21.A1 Myocardial infarction type 2; J96.01 Acute respiratory failure with hypoxia; T81.19XA Other postprocedural shock, initial encounter; I47.10 Supraventricular tachycardia, unspecified; I50.32 Chronic diastolic (congestive) heart failure; I48.19 Other persistent atrial fibrillation; D62 Acute posthemorrhagic anemia; M21.372 Foot drop, left foot; Z79.01 Long term (current) use of anticoagulants; I25.10 Atherosclerotic heart disease of native coronary artery without angina pectoris; Z95.5 Presence of coronary angioplasty implant and graft; Z86.73 Personal history of transient ischemic attack (TIA), and cerebral infarction without residual deficits; K21.9 Gastro-esophageal reflux disease without esophagitis; E66.9 Obesity, unspecified; N40.0 Benign prostatic hyperplasia without lower urinary tract symptoms; G47.33 Obstructive sleep apnea (adult) (pediatric); I11.0 Hypertensive heart disease with heart failure; R31.9 Hematuria, unspecified; Y83.6 Removal of other organ (partial) (total) as the cause of abnormal reaction of the patient, or of later complication, without mention of misadventure at the time of the procedure; I25.2 Old myocardial infarction; Z85.46 Personal history of malignant neoplasm of prostate; E78.00 Pure hypercholesterolemia, unspecified; Z82.49 Family history of ischemic heart disease and other diseases of the circulatory system; Z82.3 Family history of stroke; Z87.891 Personal history of nicotine dependence; Z68.32 Body mass index [BMI] 32.0-32.9, adult
CPT/HCPCS: 36415; 36430; 71045; 71275; 73502; 76000; 80048; 80053; 81001; 82962; 83605; 83735; 83880; 84145; 84484; 85014; 85018; 85025; 85610; 85730; 86850; 86900; 86901; 87040; 87797; 93307; 97110; 97116; 97162; 97167; 97530; 97535; 99291; C1776; P9016; J0690; J1100; J1644; J1815; J2405; J2543; J2704; J3010; J3490; P9041; Q9967

== ENCOUNTER 2023-12-14 10:41 | Emergency (ER) | payer MEDICARE, OTHER, SELFPAY ==
[2023-12-06 06:39] VITALS: BMI 32.8
[2023-12-14] VITALS (8 sets, daily range): BP systolic 100–122; BP diastolic 49–56; PULSE 72–83; RESP 18–20; TEMP 36.8; O2SAT 93–98; BMI 34.5
--- NOTE | 2023-12-14 10:55 | DI.US.S_ITS ---
PROCEDURE: US PERIP VENOUS LOW EXTREM RT INDICATIONS: SWELLING RT LOWER EXTREMITY. P/O RT HIP REPLACEMENT X 2DAYS TECHNIQUE: Real-time imaging, as well as color and pulse Doppler interrogation, were performed of the lower extremity deep veins from the inguinal ligament to the popliteal fossa, with documentation of the visualized calf veins. COMPARISON: [facility], PERIP VENOUS LOW EXTREM RT, 03/21/2023, 13:29. FINDINGS: The common femoral, femoral, popliteal, and the visualized calf veins are normally compressible, and free of intraluminal thrombus. Color and pulse Doppler demonstrate normal phasic intraluminal flow. There is normal augmentation response to distal compression maneuver. IMPRESSION: No findings of lower extremity deep venous thrombosis. Dictated by: Chanda Raman M.D. on 12/14/2023 at 11:51 Approved by: Chanda Raman M.D. on 12/14/2023 at 11:52
[2023-12-14 11:21] LABS: Add Manual Diff / Slide Review NO; Basophils Absolute Auto 0 /uL (0-100); Basophils Percent Auto 0.4 % (0-2); Eosinophils Absolute Auto 100 /uL (0-450); Eosinophils Percent Auto 1.1 % (2-4); Hematocrit 24.1 % (41-53); Hemoglobin 8.1 g/dL (13.5-17.5); Lymphocytes Absolute Auto 800 /uL (1100-4500); Lymphocytes Percent Auto 8.6 % (25-40); Mean Corpuscular HGB Conc 33.5 % (30-36); Mean Corpuscular Hemoglobin 32.4 PG (26-34); Mean Corpuscular Volume 96.7 fL (80-100); Monocytes Absolute Auto 800 /uL (0-900); Monocytes Percent Auto 8.4 % (3-14); Neutrophils Absolute Auto 7300 /uL (1500-7000); Neutrophils Percent Auto 81.5 % (50-75); Platelet Count 161 X10^3/uL (150-400); Red Blood Cell Count 2.49 X10^6/uL (4.5-5.9)
[2023-12-14 11:32] LABS: Alanine Aminotransferase 22 IU/L (<50); Albumin 2.9 g/dL (3.5-5.0); Albumin Globulin Ratio 1.1 (1.0-2.8); Alkaline Phosphatase 44 U/L (38-126); Aspartate Aminotransferase 25 IU/L (17-59); Bilirubin Total 0.6 mg/dL (0.2-1.3); Blood Urea Nitrogen 40 mg/dL (9-20); Calcium 8.2 mg/dL (8.4-10.2); Carbon Dioxide 24 mmol/L (22-32); Chloride 106 mmol/L (98-107); Estimated Glomerular Filt Rate > 60 mL/min (>60); Globulin 2.7 g/dL (1.7-4.1); Glucose 125 mg/dL (80-110); HEMOLYSIS < 15 (0-50); Sodium 133 mmol/L (137-145); Total Protein 5.6 g/dL (6.3-8.2)
--- NOTE | 2023-12-14 12:02 | ED.EXTPRO ---
HPI - Extremity Problem General Chief complaint: Extremity Problem,Nontraumatic Stated complaint: R Leg Swelling Time Seen by Provider: 12/14/23 11:11 Source: patient Mode of arrival: Family Vehicle History of Present Illness HPI Narrative: Patient is an 88-year-old male history of congestive heart failure, coronary artery disease with stent, hypertension hyperlipidemia persistent AFib on Eliquis obesity TIA presenting today with increasing confusion. He is postop from right total hip surgery 12/06/2023, had a complicated postop he was in ICU and developed hypovolemic shock required vasopressors. He required 2 units of packed red blood cell. He went to rehab he has been there for about a week reports he has been doing well until 2 days ago when she reports he is having some cognitive decline. It was thought that he has a UTI but yet to have a UA. He reports increased pain in his right leg they think it is more swollen it does not look anymore read he has not having anymore fever. Related Data Home Medications Medication Instructions Recorded Confirmed CoQ-10 400 mg PO QPM ##0 11/21/16 12/03/23 ascorbic acid (vitamin C) 500 mg 500 mg PO DAILY ##0 11/21/16 12/03/23 tablet tamsulosin 0.4 mg capsule (Flomax) 0.8 mg PO QPM ##0 11/21/16 12/06/23 [VITAMIN K2] 100 mcg PO QPM ##0 03/06/17 12/03/23 alpha lipoic acid 600 mg capsule 600 mg PO BEDTIME 12/11/18 12/03/23 apixaban 5 mg tablet (Eliquis) 5 mg PO BID 10/26/20 12/03/23 ResMed AirSense Auto 03/27/22 12/10/23 Vitamin D3 See Rx Instructions PO DAILY 06/13/22 12/03/23 empagliflozin 10 mg tablet 10 mg PO BEDTIME 08/29/23 12/03/23 (Jardiance) furosemide 20 mg tablet (Lasix) 40 mg PO DAILY PRN Edema 08/29/23 12/03/23 lisinopril 20 mg tablet 10 mg PO QPM 08/29/23 12/03/23 trospium 20 mg tablet 20 mg PO BID 11/12/23 12/06/23 amlodipine 5 mg tablet 5 mg PO BEDTIME 12/10/23 12/10/23 venlafaxine 75 mg tablet,extended 75 mg PO BEDTIME 12/10/23 12/10/23 release 24 hr Previous Rx's Medication Instructions Recorded nitroglycerin 0.4 mg sublingual 0.4 mg sublingual Q5-15M PRN Chest 03/02/23 tablet Pain #20 tabs gabapentin 300 mg capsule 900 mg (3 x 300 mg) PO BID #360 05/01/23 caps baclofen 5 mg tablet 5 mg PO BID PRN muscle spasm #60 10/09/23 tabs rosuvastatin 5 mg tablet (Crestor) 10 mg (2 x 5 mg) PO .COMPLEX #135 10/09/23 tabs omeprazole 20 mg capsule,delayed 20 mg PO BID #180 caps 12/03/23 release acetaminophen 325 mg tablet 650 mg (2 x 325 mg) PO Q6H #1 tab 12/10/23 docusate sodium 100 mg capsule 100 mg PO BID PRN constipation #1 12/10/23 cap tramadol 50 mg tablet 50 mg PO Q4-6H PRN Pain, Moderate 12/10/23 (4-6) #60 tabs cephalexin 500 mg capsule 500 mg PO BID 7 days #14 caps 12/14/23 Allergies Allergy/AdvReac Type Severity Reaction Status Date / Time No Known Drug Allergies Allergy Verified 11/12/23 16:40 Patient History Medical History (Updated 12/14/23 @ 16:17 by Debra Matias DO) NSTEMI (non-ST elevated myocardial infarction) History of COVID-19 Peripheral neuropathy Waters's palsy Depression TIA (transient ischemic attack) Memory changes SEAN treated with BiPAP Myocardial infarction (12/2006) Class 1 obesity due to excess calories with body mass index (BMI) of 31.0 to 31.9 in adult Pre-diabetes Gastric reflux Protein-calorie malnutrition, mild Anemia Chronic anticoagulation Acute GI bleeding Headache Hx of myocardial infarction (Unknown) Hypertension (Unknown) Lumbar disc disease (2012) Polio (1950) Chickenpox Measles Hearing loss (2014) Coronary artery disease (2008) Prostate cancer (2008) Peripheral polyneuropathy (03/06/17) Left foot drop (03/06/17) Vitamin D deficiency (11/21/16) Gastroesophageal reflux disease (06/13/16) Statin intolerance (02/08/16) Spinal stenosis of lumbar region (02/08/16) Pure hypercholesterolemia (02/08/16) History of malignant neoplasm of prostate (04/08/15) Essential hypertension (02/08/16) Coronary artery disease involving [place] coronary artery of ven[place]ie heart without angina pectoris (02/08/16) Balance problems (02/08/16) Surgical History (Updated 12/13/23 @ 14:14 by YOANDY Michaud) Hx of heart artery stent (12/2006) History of prostate surgery (2009) Status post laminectomy Family History Father No problems noted. Mother Cancer Grandfather No problems noted. Grandmother No problems noted. Grandfather No problems noted. Grandmother Cancer Family/Other Stroke Heart attack Coronary artery disease Congestive heart failure Social History marital status: household members: none Smoking Status: Former smoker second hand exposure: No alcohol intake: current substance use type: does not use Smoking Status: Former smoker alcohol intake frequency: holidays/special occasions only Substance Use Type: does not use Exam Initial Vital Signs Initial Vital Signs: Vital Signs Temperature 98.3 F 12/14/23 10:53 Pulse Rate 73 12/14/23 10:53 Respiratory Rate 18 12/14/23 10:53 Blood Pressure 100/49 L 12/14/23 10:53 Pulse Oximetry 96 12/14/23 10:53 Oxygen Delivery Method Room Air 12/14/23 10:53 Course Orders Ordered: ED Orders 12/14/23 12:33 UA Complete [Urinalysis and Microscopic] Stat 12/14/23 14:33 BNP [NT-proBNP (BNP-Adult 18+)] Stat Lactate (Lactic Acid) Stat Troponin & CK Cardiac Panel Stat Discontinued Medications Hydromorphone HCl (Hydromorphone 0.5 Mg Inj) 0.5 mg IV NOW ONE Stop: 12/14/23 12:13 Last Admin: 12/14/23 12:21 Dose: 0.5 mg Documented By: DALIA Ceftriaxone Sodium 1,000 mg/ (Sodium Chloride) 100 mls @ 200 mls/hr IV NOW ONE Stop: 12/14/23 13:01 Last Infusion: 12/14/23 14:01 Dose: Infused Documented By: Admin: 12/14/23 13:22 Dose: 200 mls/hr Documented By: ARTURO Lidocaine HCl (Lidocaine 2% (Glydo) 6 Ml Gel) 6 ml TOP NOW ONE Stop: 12/14/23 12:16 Last Admin: 12/14/23 12:22 Dose: 6 ml Documented By: DALIA Vital Signs Vital signs: Vital Signs - 8 hr 12/14/23 12:30 12/14/23 12:35 12/14/23 12:35 Pulse Rate 74 75 Respiratory Rate Blood Pressure 103/50 L Pulse Oximetry 95 95 Oxygen Delivery Method 12/14/23 16:44 Pulse Rate 83 Respiratory Rate 20 Blood Pressure 122/56 L Pulse Oximetry 98 Oxygen Delivery Method Room Air MDM - Extremity (Nontraumatic) Lab Data 12/14/23 11:14 12/14/23 11:14 Labs: Lab Results 12/14/23 12/14/23 12/14/23 Range/Units 11:14 12:33 14:33 WBC 9.0 (4.5-11.0) X10^3/uL RBC 2.49 L (4.5-5.9) X10^6/uL Hgb 8.1 L (13.5-17.5) g/dL Hct 24.1 L (41-53) % MCV 96.7 (80-100) fL MCH 32.4 (26-34) PG MCHC 33.5 (30-36) % RDW 15.0 H (11.6-14.8) % Plt Count 161 (150-400) X10^3/uL Neut % (Auto) 81.5 H (50-75) % Lymph % (Auto) 8.6 L (25-40) % [place] % (Auto) 8.4 (3-14) % Eos % (Auto) 1.1 L (2-4) % Baso % (Auto) 0.4 (0-2) % Neut # (Auto) 7300 H (7750-7502) /uL Lymph # (Auto) 800 L (0111-2750) /uL [place] # (Auto) 800 (0-900) /uL Eos # (Auto) 100 (0-450) /uL Baso # (Auto) 0 (0-100) /uL PT 15.7 H (9.4-12.5) SECONDS INR 1.4 H (0.9-1.3) APTT 33 (25.1-36.5) SECONDS Sodium 133 L (137-145) mmol/L Potassium 5.0 (3.4-5.1) mmol/L Chloride 106 (98-107) mmol/L Carbon Dioxide 24 (22-32) mmol/L BUN 40 H (9-20) mg/dL Creatinine 1.08 (0.66-1.25) mg/dL Estimated GFR > 60 (>60) mL/min BUN/Creatinine Ratio 37.0 H (6-22) Glucose 125 H (80-110) mg/dL Lactate 0.7 (0.7-2.1) mmol/L Calcium 8.2 L (8.4-10.2) mg/dL Total Bilirubin 0.6 (0.2-1.3) mg/dL AST 25 (17-59) IU/L ALT 22 (<50) IU/L Alkaline Phosphatase 44 (38-126) U/L Total Creatine Kinase 129 (55-170) U/L Troponin I 0.013 (0.01-0.034) ng/mL NT-Pro-B Natriuret Pep 1700 H (<450) pg/mL Total Protein 5.6 L (6.3-8.2) g/dL Albumin 2.9 L (3.5-5.0) g/dL Globulin 2.7 (1.7-4.1) g/dL Albumin/Globulin Ratio 1.1 (1.0-2.8) Urine Color Yellow Urine Appearance Clear Urine pH 5.5 (4.5-8.0) Ur Specific [place] 1.020 (1.000-1.035) Urine Protein Negative (Negative) Urine Glucose (UA) 3+ H (Negative) g/dL Urine Ketones Negative (NEGATIVE) Urine Occult Blood 2+ H (Negative) Urine Nitrate Positive H (Negative) Urine Bilirubin Negative (NEGATIVE) Urine Urobilinogen 0.2 (0.2) E.U./dL Ur Leukocyte Esterase Negative (NEGATIVE) Urine RBC 1-5/hpf (0-5/HPF) Urine WBC 0-1/hpf (0-5/HPF) Ur Squamous Epith Cells 0-1 /hpf (0-5/HPF) Urine Bacteria Few (2-10) H (None) Ur Culture Indicated? Cult not indicated Vol Urine Centrifuged 10ml (spun) Urine Dip Bedside Urine Glucose 1000 mg/dl Bedside Urine Bilirubin - Negative Bedside Urine Ketone - Negative Urine Specific [place] 1.020 Bedside Urine Occult Blood +++ Bedside Urine pH 5.5 Bedside Urine Protein - Negative Bedside Urine Urobilinogen - Negative Bedside Urine Nitrite - Negative Bedside Urine Leukocytes - Negative Esterase Imaging Data US - DVT: Radiologist's Impression: PROCEDURE: [facility] VENOUS LOW EXTREM RT INDICATIONS: SWELLING RT LOWER EXTREMITY. P/O RT HIP REPLACEMENT X 2DAYS TECHNIQUE: Real-time imaging, as well as color and pulse Doppler interrogation, were performed of the lower extremity deep veins from the inguinal ligament to the popliteal fossa, with documentation of the visualized calf veins. COMPARISON: [facility], , [facility] VENOUS LOW EXTREM RT, 03/21/2023, 13:29. FINDINGS: The common femoral, femoral, popliteal, and the visualized calf veins are normally compressible, and free of intraluminal thrombus. Color and pulse Doppler demonstrate normal phasic intraluminal flow. There is normal augmentation response to distal compression maneuver. IMPRESSION: No findings of lower extremity deep venous thrombosis. Dictated by: Chanda Raman M.D. on 12/14/2023 at 11:51 MDM Narrative Medical decision making narrative: MDM CC: Confusion, right leg pain Complicating co-morbidities: Recent right hip replacement, Corroborating data: Data collected from: [ ] Medical records reviewed: Yes Differential considered: Sepsis, DVT, UTI Exam documented above, pertinent findings include: Right lower extremity swollen no significant erythema bandage placed Lab Test results independently reviewed as above. Pertinent findings: WBC 9.0, hemoglobin 8.1, hematocrit 24.1, platelets 161, sodium 133, potassium 5.0, chloride 106, carbon dioxide 24, BUN 40, creatinine 1.0 lactate 0.7, Independently reviewed EKG as above Imaging studies independently reviewed: Negative DVT study Consultations: [ ] Treatments: Rocephin Re-evaluations: Patient is doing better mental status seems to be improved Discussion: Patient reports increasing pain and swelling in his right leg however states he is more confused today than what he has been. He is found to have a UTI given a dose of Rocephin. Blood pressure was slightly low but did improve. He has no evidence sepsis he has a normal lactate and normal WBC. Hemoglobin is slightly lower than what it was but no need for blood transfusion at time. This time recommend outpatient p.o. antibiotics and return if symptoms worsen Discharge Plan Departure Patient Disposition: Home Clinical Impression: Acute UTI Instructions: DI for Urinary Tract Infection (UTI) Activity Restrictions/Additional Instructions: *You have been diagnosed with UTI *What to do: At this time I suspect a bladder infection is causing confusion. Continue to elevate and ice leg *Continue to take medications as directed Cephalexin 500 mg twice a day for 7 days *Follow up with your primary care provider in 2-3 days or call [phone] *Return to ER if you should have increasing confusion weakness pain or any new, worsening or concerning symptoms Prescriptions: New cephalexin 500 mg capsule 500 mg PO BID 7 Days Qty: 14 0RF No Action alpha lipoic acid 600 mg capsule 600 mg PO BEDTIME tamsulosin [Flomax] 0.4 MG capsule,extended release 24hr 0.8 mg PO QPM Qty: 0 CoQ-10 400 mg PO QPM Qty: 0 ascorbic acid (vitamin C) 500 MG tablet 500 mg PO DAILY Qty: 0 [VITAMIN K2] 100 mcg PO QPM Qty: 0 Patient Comments: vitamin K2 MK7 c MenaQ7 nitroglycerin 0.4 mg tablet, sublingual 0.4 mg SL Q5-15M PRN (Reason: Chest Pain) Qty: 20 11RF gabapentin 300 mg capsule 900 mg PO BID Qty: 360 2RF Rx Instructions: Managed by Dr Arndt/Neurologist Eliquis 5 mg tablet 5 mg PO BID Hold Instructions: sugery Vitamin D3 1,500 unit See Rx Instructions PO DAILY Rx Instructions: 0712-8516 IU daily orally daily; furosemide [Lasix] 20 mg tablet 40 mg PO DAILY PRN (Reason: Edema) Jardiance 10 mg tablet 10 mg PO BEDTIME lisinopril 20 mg tablet 10 mg PO QPM rosuvastatin [Crestor] 5 mg tablet 10 mg PO .COMPLEX Qty: 135 3RF Patient Comments: patient's daughter reports 10 mg Q2D alternating with 15 mg Rx Instructions: 10 mg orally alternating every other day with 5mg, for hyperlipidemia; baclofen 5 mg tablet 5 mg PO BID PRN (Reason: muscle spasm) Qty: 60 2RF omeprazole 20 mg capsule,delayed release(DR/EC) 20 mg PO BID Qty: 180 3RF Rx Instructions: Take 1 cap by mouth twice daily trospium 20 mg Tablet 20 mg PO BID Rx Instructions: administer on an empty stomach acetaminophen 325 mg Tablet 650 mg PO Q6H Qty: 1 0RF docusate sodium 100 mg Capsule 100 mg PO BID PRN (Reason: constipation) Qty: 1 0RF tramadol 50 mg Tablet 50 mg PO Q4-6H PRN (Reason: Pain, Moderate (4-6)) Qty: 60 0RF Rx Instructions: Pt may take 50-100mg (1-2 tabs) q 4-6H PRN [id number] pain amlodipine 5 mg tablet 5 mg PO BEDTIME venlafaxine 75 mg Tablet Extended Release 24hr 75 mg PO BEDTIME (DME) ResMed AirSense Auto See Rx Instructions .Route .MEDSUPPLY Rx Instructions: CPAP Min: 6 Max: 16 DME: [facility]AD: 02/09/21 Referrals: Marbella Duenas ARNP [Primary Care Provider] - Stand Alone Forms: Patient Portal/API
[2023-12-14] MEDS: HYDROMORPHONE 0.5 MG INJ IV (12:21)
[2023-12-14] MEDS: LIDOCAINE 2% (GLYDO) 6 ML GEL TOP (12:22)
[2023-12-14 12:47] LABS: Appearance Urine UA CLEAR; Bilirubin Urine UA NEGATIVE (NEGATIVE); Color Urine UA YELLOW; Glucose Urine UA 3+ g/dL (Negative); Ketones Urine UA NEGATIVE (NEGATIVE); Leukocyte Esterase Urine UA NEGATIVE (NEGATIVE); Nitrite Urine UA POSITIVE (Negative); Occult Blood Urine UA 2+ (Negative); Protein Urine UA NEGATIVE (Negative); Urobilinogen Urine UA 0.2 E.U./dL (0.2); pH Urine UA 5.5 (4.5-8.0)
[2023-12-14 12:53] LABS: Bacteria Urine Few (2-10); Culture Indicated Urine Cult Not Indicated; RBC Urine 1-5/HPF (0-5/HPF); Squamous Epithelial Cell Urine 0-1 /HPF (0-5/HPF); Urine Volume 10mL (spun); WBC Urine 0-1/HPF (0-5/HPF)
[2023-12-14] MEDS: cefTRIAXone 1,000 MG in SODIUM CHLORIDE 0.9% 100 ML 200 MG IV (13:22)
[2023-12-14 14:55] LABS: INR 1.4 (0.9-1.3); Prothrombin Time 15.7 SECONDS (9.4-12.5)
[2023-12-14 14:57] LABS: PTT Partial Thromboplastin Tim 33 SECONDS (25.1-36.5)
[2023-12-14 14:59] LABS: Lactate (Lactic Acid) 0.7 mmol/L (0.7-2.1)
[2023-12-14 15:01] LABS: Creatine Kinase 129 U/L (55-170)
[2023-12-14 15:12] LABS: NT-proBNP (BNP-Adult 18+) 1700 pg/mL (<450); Troponin I 0.013 ng/mL (0.01-0.034)
== END 2023-12-14 17:15 | disposition home or self-care (01) ==
PROVIDERS: Emergency Provider Emergency Medicine; Family Provider Student in an Organized Health Care Education/Training Program; PCP Nurse Practitioner
DX: N39.0 Urinary tract infection, site not specified (principal); M79.89 Other specified soft tissue disorders
CPT/HCPCS: 36415; 80053; 81001; 81003; 82550; 83605; 83880; 84484; 85025; 85610; 85730; 87040; 93971; 96365; 96375; 99284; J0696; J1170

== ENCOUNTER → 2023-12-25 12:18 | Outpatient (CLI) | payer MEDICARE, OTHER, SELFPAY ==
[2023-12-06 06:39] VITALS: BMI 32.8
--- NOTE | 2023-12-25 | DI.CT.S_ITS ---
PROCEDURE: CT HEAD/BRAIN WO CON INDICATIONS: Disorientation TECHNIQUE: Noncontrast 4.5 mm thick angled axial sections acquired from the foramen magnum to the vertex, with coronal and sagittal reformats. For radiation dose reduction, the following was used: automated exposure control, adjustment of mA and/or kV according to patient size. COMPARISON: [facility], CT, HEAD WITHOUT CONTRAST, 02/11/2016, 14:36. FINDINGS: Image quality: Diagnostic. CSF spaces: Basal cisterns are patent. No extra-axial fluid collections. The ventricles are symmetric in size and shape. Brain: No intracranial bleeds or masses. There is cerebral volume loss for age, with resultant ventricular and sulcal prominence. There are periventricular and deep white matter chronic small vessel ischemic changes. There is intracranial internal carotid artery atherosclerosis. Skull and face: Calvarium and visualized facial bones appear intact, without suspicious lesions. Bilateral lens replacements. Sinuses: Visualized sinuses and mastoids are clear. IMPRESSION: No acute intracranial pathology. Dictated by: Samuel Pham M.D. on 12/25/2023 at 13:42 Approved by: Samuel Pham M.D. on 12/25/2023 at 13:46
== END ==
PROVIDERS: Family Provider Student in an Organized Health Care Education/Training Program; PCP Nurse Practitioner; Referring Provider Licensed Practical Nurse; Visit Provider Nurse Practitioner
DX: R41.0 Disorientation, unspecified (principal); I65.29 Occlusion and stenosis of unspecified carotid artery
CPT/HCPCS: 70450

== ENCOUNTER → 2024-01-16 13:20 | Outpatient (CLI) | payer MEDICARE, OTHER, SELFPAY ==
[2023-12-06 06:39] VITALS: BMI 32.8
[2024-01-16 14:44] LABS: Add Manual Diff / Slide Review NO; Basophils Absolute Auto 0 /uL (0-100); Basophils Percent Auto 0.2 % (0-2); Eosinophils Absolute Auto 200 /uL (0-450); Eosinophils Percent Auto 2.2 % (2-4); Hematocrit 35.7 % (41-53); Hemoglobin 11.6 g/dL (13.5-17.5); Lymphocytes Absolute Auto 800 /uL (1100-4500); Lymphocytes Percent Auto 12.4 % (25-40); Mean Corpuscular HGB Conc 32.6 % (30-36); Mean Corpuscular Hemoglobin 31.5 PG (26-34); Mean Corpuscular Volume 96.8 fL (80-100); Monocytes Absolute Auto 500 /uL (0-900); Monocytes Percent Auto 7.8 % (3-14); Neutrophils Absolute Auto 5300 /uL (1500-7000); Neutrophils Percent Auto 77.4 % (50-75); Platelet Count 175 X10^3/uL (150-400); Red Blood Cell Count 3.68 X10^6/uL (4.5-5.9); Red Cell Distribution Width 15.8 % (11.6-14.8); White Blood Cell Count 6.8 X10^3/uL (4.5-11.0)
[2024-01-16 15:05] LABS: HEMOLYSIS < 15 (0-50); Iron 80 ug/dL (49-181)
[2024-01-16 15:07] LABS: Alanine Aminotransferase 13 IU/L (<50); Albumin 3.9 g/dL (3.5-5.0); Albumin Globulin Ratio 1.3 (1.0-2.8); Alkaline Phosphatase 67 U/L (38-126); Aspartate Aminotransferase 17 IU/L (17-59); BUN Creatinine Ratio 42.3 (6-22); Bilirubin Total 0.4 mg/dL (0.2-1.3); Blood Urea Nitrogen 41 mg/dL (9-20); Calcium 8.8 mg/dL (8.4-10.2); Carbon Dioxide 26 mmol/L (22-32); Chloride 102 mmol/L (98-107); Cholesterol 127 mg/dL (140-199); Estimated Glomerular Filt Rate > 60 mL/min (>60); Globulin 2.9 g/dL (1.7-4.1); Glucose 115 mg/dL (80-110); HDL Cholesterol 61 mg/dL (40-60); HEMOLYSIS < 15 (0-50); Hemoglobin A1C% w Est Avg Glu 5.1 % (4.0-6.0); LDL Cholesterol Calculated 53 mg/dL (<100); Sodium 135 mmol/L (137-145); Total Protein 6.8 g/dL (6.3-8.2); Triglycerides 66 mg/dL (35-150)
[2024-01-16 15:08] LABS: Potassium 5.4 mmol/L (3.4-5.1)
[2024-01-16 15:17] LABS: Percent Iron Saturation 28 % (20-50); Total Iron Binding Capacity 282 ug/dL (261-462); Transferrin 208 mg/dL (206-381)
[2024-01-16 15:17] LABS: NT-proBNP (BNP-Adult 18+) 503 pg/mL (<450)
[2024-01-16 15:41] LABS: Ferritin 117 ng/mL (18-464)
[2024-01-16 15:55] LABS: Vitamin B12 836 pg/mL (239-931)
== END ==
PROVIDERS: Family Provider Student in an Organized Health Care Education/Training Program; PCP Nurse Practitioner; Referring Provider Internal Medicine Cardiovascular Disease; Visit Provider Internal Medicine Cardiovascular Disease
DX: R06.09 Other forms of dyspnea (principal); R73.03 Prediabetes; I42.9 Cardiomyopathy, unspecified; E78.00 Pure hypercholesterolemia, unspecified; Z79.899 Other long term (current) drug therapy; E44.1 Mild protein-calorie malnutrition; I10 Essential (primary) hypertension; I48.91 Unspecified atrial fibrillation; Z79.01 Long term (current) use of anticoagulants; D64.9 Anemia, unspecified; R41.0 Disorientation, unspecified
CPT/HCPCS: 36415; 80053; 80061; 82607; 82728; 83036; 83540; 83550; 83880; 85025

== ENCOUNTER → 2024-01-29 13:29 | Outpatient (CLI) | payer MEDICARE, OTHER, SELFPAY ==
[2023-12-06 06:39] VITALS: BMI 32.8
[2024-01-29 15:10] LABS: Hemoglobin 12.4 g/dL (13.5-17.5); Mean Corpuscular HGB Conc 33.6 % (30-36); Mean Corpuscular Hemoglobin 32.1 PG (26-34); Mean Corpuscular Volume 95.7 fL (80-100); Platelet Count 156 X10^3/uL (150-400); Red Blood Cell Count 3.86 X10^6/uL (4.5-5.9); Red Cell Distribution Width 15.3 % (11.6-14.8); White Blood Cell Count 7.2 X10^3/uL (4.5-11.0)
[2024-01-29 15:28] LABS: BUN Creatinine Ratio 26.3 (6-22); Blood Urea Nitrogen 30 mg/dL (9-20); Calcium 8.4 mg/dL (8.4-10.2); Carbon Dioxide 26 mmol/L (22-32); Chloride 105 mmol/L (98-107); Estimated Glomerular Filt Rate > 60 mL/min (>60); Glucose 95 mg/dL (80-110); HEMOLYSIS < 15 (0-50); Sodium 136 mmol/L (137-145)
[2024-01-29 15:35] LABS: NT-proBNP (BNP-Adult 18+) 452 pg/mL (<450); Potassium 5.4 mmol/L (3.4-5.1)
== END ==
PROVIDERS: Family Provider Student in an Organized Health Care Education/Training Program; PCP Nurse Practitioner; Referring Provider Internal Medicine Cardiovascular Disease; Visit Provider Internal Medicine Cardiovascular Disease
DX: R06.09 Other forms of dyspnea (principal); I42.9 Cardiomyopathy, unspecified
CPT/HCPCS: 36415; 80048; 83880; 85027

== ENCOUNTER 2024-02-08 18:59 | Emergency (ER) | payer MEDICARE, OTHER, SELFPAY ==
[2023-12-06 06:39] VITALS: BMI 32.8
--- NOTE | 2024-02-08 19:08 | DI.CT.S_ITS ---
PROCEDURE: CT HEAD/BRAIN WO CON INDICATIONS: fall on eliquis TECHNIQUE: Noncontrast 4.5 mm thick angled axial sections acquired from the foramen magnum to the vertex, with coronal and sagittal reformats. For radiation dose reduction, the following was used: automated exposure control, adjustment of mA and/or kV according to patient size. COMPARISON: [facility], CT, CT HEAD/BRAIN WO CON, 12/25/2023, 12:23. FINDINGS: Image quality: Diagnostic. CSF spaces: Basal cisterns are patent. No extra-axial fluid collections. The ventricles are symmetric in size and shape. Brain: No intracranial bleeds or masses. There is cerebral volume loss for age, with resultant ventricular and sulcal prominence. There are periventricular and deep white matter chronic small vessel ischemic changes. There is intracranial internal carotid artery atherosclerosis. Skull and face: Calvarium and visualized facial bones appear intact, without suspicious lesions. Bilateral lens replacements. Otherwise, the orbits are unremarkable. Sinuses: Visualized sinuses and mastoids are clear. IMPRESSION: No acute intracranial pathology. Dictated by: Samuel Pham M.D. on 02/08/2024 at 19:39 Approved by: Samuel Pham M.D. on 02/08/2024 at 19:41
--- NOTE | 2024-02-08 19:08 | DI.CT.S_ITS ---
PROCEDURE: CT CERVICAL SPINE WO CON INDICATIONS: fall TECHNIQUE: Noncontrast 3 mm thick sections acquired from the skull base to the T4 level. Sagittal and coronal reformats were then constructed. For radiation dose reduction, the following was used: automated exposure control, adjustment of mA and/or kV according to patient size. COMPARISON: None. FINDINGS: Image quality: Excellent. Bones: No fractures or dislocations. Levocurvature of the cervical spine. There are multilevel degenerative changes of the cervical spine with facet and uncovertebral arthropathy, disc height loss with degenerative endplate changes and spurring. Visualized superior ribs are intact. Soft tissues: Prevertebral soft tissues are normal in thickness. No paravertebral hematomas. No apical pneumothoraces. Atherosclerotic vascular calcifications. IMPRESSION: No displaced fracture or traumatic subluxation. Dictated by: Samuel Pham M.D. on 02/08/2024 at 19:41 Approved by: Samuel Pham M.D. on 02/08/2024 at 19:43
[2024-02-08 19:09] VITALS: BP 134/67; PULSE 79; RESP 18; TEMP 36.8; O2SAT 97; BMI 30.8
--- NOTE | 2024-02-08 20:15 | ED.FALL ---
HPI - Fall General Chief Complaint: Fall Stated Complaint: Fell and hit head Time Seen by Provider: 02/08/24 19:08 Source: patient and family Mode of arrival: Ambulatory History of Present Illness HPI Narrative: Patient is an 88-year-old male history of atrial fibrillation on Eliquis presenting today with mechanical fall. Son reports that he was getting off the commode when he lost his balance and fell. It is not uncommon for him to be off balance he has a walker and wheelchair. He thinks maybe he hit his head no loss of consciousness no nausea vomiting. Reports no pain or injury from the fall. No obvious sign of trauma or injury. Related Data Home Medications Medication Instructions Recorded Confirmed CoQ-10 400 mg PO QPM ##0 11/21/16 01/16/24 tamsulosin 0.4 mg capsule (Flomax) 0.8 mg PO QPM ##0 11/21/16 01/16/24 [VITAMIN K2] 100 mcg PO QPM ##0 03/06/17 01/16/24 alpha lipoic acid 600 mg capsule 600 mg PO BEDTIME 12/11/18 01/16/24 apixaban 5 mg tablet (Eliquis) 5 mg PO BID 10/26/20 01/16/24 ResMed AirSense Auto 03/27/22 01/16/24 Vitamin D3 See Rx Instructions PO DAILY 06/13/22 01/16/24 empagliflozin 10 mg tablet 10 mg PO BEDTIME 08/29/23 01/16/24 (Jardiance) furosemide 20 mg tablet (Lasix) 40 mg PO DAILY PRN Edema 08/29/23 01/16/24 lisinopril 20 mg tablet 10 mg PO QPM 08/29/23 01/16/24 trospium 20 mg tablet 20 mg PO BID 11/12/23 01/16/24 amlodipine 5 mg tablet 5 mg PO BEDTIME 12/10/23 01/16/24 gabapentin 300 mg capsule 300 mg PO BEDTIME 01/16/24 01/16/24 Previous Rx's Medication Instructions Recorded nitroglycerin 0.4 mg sublingual 0.4 mg sublingual Q5-15M PRN Chest 03/02/23 tablet Pain #20 tabs baclofen 5 mg tablet 5 mg PO BID PRN muscle spasm #60 10/09/23 tabs rosuvastatin 5 mg tablet (Crestor) 10 mg (2 x 5 mg) PO .COMPLEX #135 10/09/23 tabs omeprazole 20 mg capsule,delayed 20 mg PO BID #180 caps 12/03/23 release acetaminophen 325 mg tablet 650 mg (2 x 325 mg) PO Q6H #1 tab 12/10/23 docusate sodium 100 mg capsule 100 mg PO BID PRN constipation #1 12/10/23 cap tramadol 50 mg tablet 50 mg PO Q4-6H PRN Pain, Moderate 12/10/23 (4-6) #60 tabs ascorbic acid (vitamin C) 500 mg 500 mg PO BID #180 tabs 12/20/23 tablet spironolactone 25 mg tablet 25 mg PO DAILY #90 tabs 12/20/23 venlafaxine 75 mg tablet,extended 150 mg (2 x 75 mg) PO BEDTIME #180 01/16/24 release 24 hr tabs Allergies Allergy/AdvReac Type Severity Reaction Status Date / Time No Known Drug Allergies Allergy Verified 02/08/24 19:13 Patient History Medical History Chronic anticoagulation Anemia NSTEMI (non-ST elevated myocardial infarction) History of COVID-19 Peripheral neuropathy Waters's palsy Depression TIA (transient ischemic attack) Memory changes SEAN treated with BiPAP Myocardial infarction (12/2006) Class 1 obesity due to excess calories with body mass index (BMI) of 31.0 to 31.9 in adult Pre-diabetes Gastric reflux Protein-calorie malnutrition, mild Acute GI bleeding Headache Hx of myocardial infarction (Unknown) Hypertension (Unknown) Lumbar disc disease (2012) Polio (1949) Chickenpox Measles Hearing loss (2014) Coronary artery disease (2008) Prostate cancer (2008) Peripheral polyneuropathy (03/06/17) Left foot drop (03/06/17) Vitamin D deficiency (11/21/16) Gastroesophageal reflux disease (06/13/16) Statin intolerance (02/08/16) Spinal stenosis of lumbar region (02/08/16) Pure hypercholesterolemia (02/08/16) History of malignant neoplasm of prostate (04/08/15) Essential hypertension (02/08/16) Coronary artery disease involving [place] coronary artery of [place] heart without angina pectoris (02/08/16) Balance problems (02/08/16) Surgical History Hx of heart artery stent (12/2006) History of prostate surgery (2009) Status post laminectomy Family History Father No problems noted. Mother Cancer Grandfather No problems noted. Grandmother No problems noted. Grandfather No problems noted. Grandmother Cancer Family/Other Stroke Heart attack Coronary artery disease Congestive heart failure Social History marital status: household members: none Smoking Status: Former smoker second hand exposure: No alcohol intake: current substance use type: does not use Smoking Status: Former smoker alcohol intake frequency: holidays/special occasions only Substance Use Type: does not use Exam Initial Vital Signs Initial Vital Signs: Vital Signs Temperature 98.3 F 02/08/24 19:09 Pulse Rate 79 02/08/24 19:09 Respiratory Rate 18 02/08/24 19:09 Blood Pressure 134/67 02/08/24 19:09 Pulse Oximetry 97 02/08/24 19:09 Oxygen Delivery Method Room Air 02/08/24 19:09 GENERAL: Alert pleasant 88-year-old male and in no acute distress. HEENT: Head atraumatic, no contusion abrasion crepitations EOMI, pupils reactive, face symmetric, moist mucous membranes NECK: No vertebral tenderness no step-off full range of motion CARDIOVASCULAR: Irregularly regular non tachycardic RESPIRATORY: Breath sounds equal bilaterally, no wheezes rales or rhonchi. ABDOMEN: Soft, nontender. Normoactive bowel sounds all 4 quadrants. No guarding or rebound. EXTREMITIES: Normal range of motion, no clubbing or edema. Neurovascularly intact. Pelvis stable NEUROLOGICAL: Alert and oriented x4.Normal gait and speech. Hand Folder strength equal bilaterally SKIN: Warm, dry, no laceration, no petechiae, no rashes or lesions. Course Orders Ordered: ED Orders 02/08/24 19:08 CT cervical spine wo con Stat CT head/brain wo con Stat Vital Signs Vital signs: Vital Signs - 8 hr 02/08/24 19:09 02/08/24 20:30 Temperature 98.3 F Pulse Rate 79 75 Respiratory Rate 18 19 Blood Pressure 134/67 150/67 H Pulse Oximetry 97 96 Oxygen Delivery Method Room Air Room Air MDM - Fall Imaging Data CT scan - head: Radiologist's Impression: PROCEDURE: CT HEAD/BRAIN WO CON INDICATIONS: fall on eliquis TECHNIQUE: Noncontrast 4.5 mm thick angled axial sections acquired from the foramen magnum to the vertex, with coronal and sagittal reformats. For radiation dose reduction, the following was used: automated exposure control, adjustment of mA and/or kV according to patient size. COMPARISON: [facility], CT, CT HEAD/BRAIN WO CON, 12/25/2023, 12:23. FINDINGS: Image quality: Diagnostic. CSF spaces: Basal cisterns are patent. No extra-axial fluid collections. The ventricles are symmetric in size and shape. Brain: No intracranial bleeds or masses. There is cerebral volume loss for age, with resultant ventricular and sulcal prominence. There are periventricular and deep white matter chronic small vessel ischemic changes. There is intracranial internal carotid artery atherosclerosis. Skull and face: Calvarium and visualized facial bones appear intact, without suspicious lesions. Bilateral lens replacements. Otherwise, the orbits are unremarkable. Sinuses: Visualized sinuses and mastoids are clear. IMPRESSION: No acute intracranial pathology. Dictated by: Samuel Pham M.D. on 02/08/2024 at 19:39 CT - cervical spine: Radiologist's Impression: PROCEDURE: CT CERVICAL SPINE WO CON INDICATIONS: fall TECHNIQUE: Noncontrast 3 mm thick sections acquired from the skull base to the T4 level. Sagittal and coronal reformats were then constructed. For radiation dose reduction, the following was used: automated exposure control, adjustment of mA and/or kV according to patient size. COMPARISON: None. FINDINGS: Image quality: Excellent. Bones: No fractures or dislocations. Levocurvature of the cervical spine. There are multilevel degenerative changes of the cervical spine with facet and uncovertebral arthropathy, disc height loss with degenerative endplate changes and spurring. Visualized superior ribs are intact. Soft tissues: Prevertebral soft tissues are normal in thickness. No paravertebral hematomas. No apical pneumothoraces. Atherosclerotic vascular calcifications. IMPRESSION: No displaced fracture or traumatic subluxation. Dictated by: Samuel Pham M.D. on 02/08/2024 at 19:41 [facility] Narrative Medical decision making narrative: Patient is a 88-year-old male history of atrial fibrillation on Eliquis presents as a mechanical fall today. No obvious injury CT imaging head and neck do not show any injury. Not complaining of any other pain no obvious alert injuries and not having any complaints. At this time I see no need for any further workup or evaluation. Both patient and son feel comfortable going home. Discharge Plan Departure Patient Disposition: Home Clinical Impression: Closed head injury, Fall Instructions: How to Prevent Falls Activity Restrictions/Additional Instructions: *You have been diagnosed with closed head injury and fall *What to do: At this time go slowly make sure you have walker and all equipment. If you continued falls talk with your provider about NOT being on Eliquis *Continue to take medications as directed *Follow up with your primary care provider in 2-3 days or call [phone] *Return to ER if you should have increasing headache persistent vomiting weakness confusion any new, worsening or concerning symptoms Prescriptions: No Action alpha lipoic acid 600 mg capsule 600 mg PO BEDTIME tamsulosin [Flomax] 0.4 MG capsule,extended release 24hr 0.8 mg PO QPM Qty: 0 CoQ-10 400 mg PO QPM Qty: 0 [VITAMIN K2] 100 mcg PO QPM Qty: 0 Patient Comments: vitamin K2 MK7 c MenaQ7 nitroglycerin 0.4 mg tablet, sublingual 0.4 mg SL Q5-15M PRN (Reason: Chest Pain) Qty: 20 11RF Eliquis 5 mg tablet 5 mg PO BID Hold Instructions: sugery Vitamin D3 1,500 unit See Rx Instructions PO DAILY Rx Instructions: [id number] IU daily orally daily; furosemide [Lasix] 20 mg tablet 40 mg PO DAILY PRN (Reason: Edema) Jardiance 10 mg tablet 10 mg PO BEDTIME lisinopril 20 mg tablet 10 mg PO QPM rosuvastatin [Crestor] 5 mg tablet 10 mg PO .COMPLEX Qty: 135 3RF Patient Comments: patient's daughter reports 10 mg Q2D alternating with 15 mg Rx Instructions: 10 mg orally alternating every other day with 5mg, for hyperlipidemia; baclofen 5 mg tablet 5 mg PO BID PRN (Reason: muscle spasm) Qty: 60 2RF spironolactone 25 mg tablet 25 mg PO DAILY Qty: 90 1RF Rx Instructions: Take 1 tab by mouth daily ascorbic acid (vitamin C) 500 mg tablet 500 mg PO BID Qty: 180 1RF Rx Instructions: Administer with Iron gabapentin 300 mg capsule 300 mg PO BEDTIME Rx Instructions: Managed by Dr Arndt/Neurologist venlafaxine 75 mg tablet extended release 24hr 150 mg PO BEDTIME Qty: 180 3RF omeprazole 20 mg capsule,delayed release(DR/EC) 20 mg PO BID Qty: 180 3RF Rx Instructions: Take 1 cap by mouth twice daily trospium 20 mg Tablet 20 mg PO BID Rx Instructions: administer on an empty stomach acetaminophen 325 mg Tablet 650 mg PO Q6H Qty: 1 0RF docusate sodium 100 mg Capsule 100 mg PO BID PRN (Reason: constipation) Qty: 1 0RF tramadol 50 mg Tablet 50 mg PO Q4-6H PRN (Reason: Pain, Moderate (4-6)) Qty: 60 0RF Rx Instructions: Pt may take 50-100mg (1-2 tabs) q 4-6H PRN [id number] pain amlodipine 5 mg tablet 5 mg PO BEDTIME (DME) ResMed AirSense Auto See Rx Instructions .Route .MEDSUPPLY Rx Instructions: CPAP Min: 6 Max: 16 DME: [facility]: 02/09/21 Referrals: Marbella Duenas ARNP [Primary Care Provider] - Stand Alone Forms: Patient Portal/API
[2024-02-08 20:30] VITALS: BP 150/67; PULSE 75; RESP 19; O2SAT 96
== END 2024-02-08 20:30 | disposition home or self-care (01) ==
PROVIDERS: Emergency Provider Emergency Medicine; Family Provider Student in an Organized Health Care Education/Training Program; PCP Nurse Practitioner
DX: S09.90XA Unspecified injury of head, initial encounter (principal); W18.30XA Fall on same level, unspecified, initial encounter; Z79.01 Long term (current) use of anticoagulants
CPT/HCPCS: 70450; 72125; 99283; 99284

== ENCOUNTER → 2024-04-29 15:22 | Outpatient (CLI) | payer MEDICARE, OTHER, SELFPAY ==
[2023-12-06 06:39] VITALS: BMI 32.8
[2024-04-29 16:14] LABS: Hematocrit 38.8 % (41-53); Hemoglobin 13.2 g/dL (13.5-17.5); Mean Corpuscular Hemoglobin 31.7 PG (26-34); Mean Corpuscular Volume 93.4 fL (80-100); Platelet Count 146 X10^3/uL (150-400); Red Blood Cell Count 4.16 X10^6/uL (4.5-5.9); Red Cell Distribution Width 15.1 % (11.6-14.8); White Blood Cell Count 6.7 X10^3/uL (4.5-11.0)
[2024-04-29 16:47] LABS: BUN Creatinine Ratio 30.9 (6-22); Blood Urea Nitrogen 30 mg/dL (9-20); Calcium 8.4 mg/dL (8.4-10.2); Carbon Dioxide 20 mmol/L (22-32); Chloride 106 mmol/L (98-107); Estimated Glomerular Filt Rate > 60 mL/min (>60); Glucose 113 mg/dL (80-110); HEMOLYSIS < 15 (0-50); Potassium 4.7 mmol/L (3.4-5.1); Sodium 134 mmol/L (137-145)
[2024-04-29 16:52] LABS: NT-proBNP (BNP-Adult 18+) 428 pg/mL (<450)
== END ==
PROVIDERS: Family Provider Student in an Organized Health Care Education/Training Program; PCP Nurse Practitioner; Referring Provider Family Medicine; Visit Provider Family Medicine
DX: I50.22 Chronic systolic (congestive) heart failure (principal)
CPT/HCPCS: 36415; 80048; 83880; 85027

== ENCOUNTER → 2024-07-31 12:23 | Outpatient (CLI) | payer MEDICARE, OTHER, SELFPAY ==
[2023-12-06 06:39] VITALS: BMI 32.8
[2024-07-31 12:57] LABS: Hematocrit 40.6 % (41-53); Hemoglobin 13.5 g/dL (13.5-17.5); Mean Corpuscular HGB Conc 33.3 % (30-36); Mean Corpuscular Hemoglobin 32.1 PG (26-34); Mean Corpuscular Volume 96.3 fL (80-100); Platelet Count 153 X10^3/uL (150-400); Red Blood Cell Count 4.22 X10^6/uL (4.5-5.9); White Blood Cell Count 5.2 X10^3/uL (4.5-11.0)
[2024-07-31 13:19] LABS: HEMOLYSIS < 15 (0-50); Iron 99 ug/dL (49-181)
[2024-07-31 13:21] LABS: Alanine Aminotransferase 24 IU/L (<50); Albumin 3.4 g/dL (3.5-5.0); Albumin Globulin Ratio 1.3 (1.0-2.8); Alkaline Phosphatase 59 U/L (38-126); Aspartate Aminotransferase 23 IU/L (17-59); BUN Creatinine Ratio 24.3 (6-22); Bilirubin Total 0.5 mg/dL (0.2-1.3); Blood Urea Nitrogen 25 mg/dL (9-20); Calcium 8.9 mg/dL (8.4-10.2); Carbon Dioxide 21 mmol/L (22-32); Chloride 108 mmol/L (98-107); Estimated Glomerular Filt Rate > 60 mL/min (>60); Globulin 2.7 g/dL (1.7-4.1); Glucose 130 mg/dL (80-110); HEMOLYSIS < 15 (0-50); Potassium 4.8 mmol/L (3.4-5.1); Sodium 137 mmol/L (137-145); Total Protein 6.1 g/dL (6.3-8.2)
[2024-07-31 13:24] LABS: Hemoglobin A1C% w Est Avg Glu 5.9 % (4.0-6.0)
[2024-07-31 13:30] LABS: Percent Iron Saturation 44 % (20-50); Total Iron Binding Capacity 227 ug/dL (261-462); Transferrin 198 mg/dL (206-381)
[2024-07-31 14:10] LABS: Vitamin B12 893 pg/mL (239-931)
[2024-07-31 15:11] LABS: Vitamin D 25 Hydroxy (D3) 43.3 ng/mL (30.0-100.0)
[2024-07-31 21:51] LABS: Neutrophils Absolute Manual 3588 /uL (3000-5900); Total Cells Counted 100
[2024-07-31 21:52] LABS: Burr Cells 2+
[2024-08-06 06:09] LABS: Percent Free Testosterone 2.45 % (1.50-4.20); Testosterone Free 1.96 ng/dL (5.00-21.00); Testosterone Total 80.1 ng/dL (264.0-916.0)
== END ==
LOC: LAB 12:24
PROVIDERS: Nurse Practitioner; Family Provider Student in an Organized Health Care Education/Training Program; PCP Family Medicine; Referring Provider Psychiatry & Neurology Neurology; Visit Provider Psychiatry & Neurology Neurology
DX: R41.89 Other symptoms and signs involving cognitive functions and awareness (principal); R73.03 Prediabetes; R53.83 Other fatigue; I10 Essential (primary) hypertension; E44.1 Mild protein-calorie malnutrition; I48.91 Unspecified atrial fibrillation; Z79.01 Long term (current) use of anticoagulants; D64.9 Anemia, unspecified
CPT/HCPCS: 36415; 80053; 82306; 82607; 83036; 83540; 83550; 84402; 84403; 85025

== ENCOUNTER → 2024-08-06 11:14 | Outpatient (CLI) | payer MEDICARE, OTHER, SELFPAY ==
[2023-12-06 06:39] VITALS: BMI 32.8
== END ==
PROVIDERS: Family Provider Student in an Organized Health Care Education/Training Program; PCP Family Medicine; Referring Provider Psychiatry & Neurology Neurology; Visit Provider Psychiatry & Neurology Neurology
DX: R41.89 Other symptoms and signs involving cognitive functions and awareness (principal)
CPT/HCPCS: 36415; 83520

== ENCOUNTER → 2024-08-13 11:07 | Outpatient (CLI) | payer MEDICARE, OTHER, SELFPAY ==
[2023-12-06 06:39] VITALS: BMI 32.8
[2024-08-13 12:21] LABS: Hematocrit 41.8 % (41-53); Hemoglobin 13.8 g/dL (13.5-17.5); Mean Corpuscular HGB Conc 33.2 % (30-36); Mean Corpuscular Hemoglobin 32.2 PG (26-34); Mean Corpuscular Volume 97.2 fL (80-100); Platelet Count 156 X10^3/uL (150-400); Red Cell Distribution Width 14.2 % (11.6-14.8); White Blood Cell Count 6.5 X10^3/uL (4.5-11.0)
[2024-08-13 12:42] LABS: Blood Urea Nitrogen 35 mg/dL (9-20); Carbon Dioxide 23 mmol/L (22-32); Chloride 106 mmol/L (98-107); Estimated Glomerular Filt Rate > 60 mL/min (>60); Glucose 90 mg/dL (80-110); HEMOLYSIS 16 (0-50); Potassium 4.9 mmol/L (3.4-5.1); Sodium 135 mmol/L (137-145)
[2024-08-13 12:46] LABS: NT-proBNP (BNP-Adult 18+) 511 pg/mL (<450)
== END ==
LOC: LAB 11:08
PROVIDERS: Family Provider Student in an Organized Health Care Education/Training Program; PCP Family Medicine; Referring Provider Internal Medicine Cardiovascular Disease; Visit Provider Internal Medicine Cardiovascular Disease
DX: I50.22 Chronic systolic (congestive) heart failure (principal)
CPT/HCPCS: 36415; 80048; 83880; 85027

== ENCOUNTER 2024-09-16 20:40 | Emergency (ER) | payer MEDICARE, OTHER, SELFPAY ==
[2023-12-06 06:39] VITALS: BMI 32.8
[2024-09-16] VITALS (10 sets, daily range): BP systolic 103–135; BP diastolic 53–63; PULSE 70–121; RESP 17–20; TEMP 37.1; O2SAT 96–97; BMI 27.8
--- NOTE | 2024-09-16 20:45 | EKG_ITS ---
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
--- NOTE | 2024-09-16 20:53 | DI.RAD.S_ITS ---
PROCEDURE: XR CHEST 1V INDICATIONS: chest pain TECHNIQUE: One view of the chest was acquired. COMPARISON: [facility], CR, XR CHEST 1V, 12/07/2023, 11:22. FINDINGS: Surgical changes and devices: None. Lungs and pleura: Lungs are clear. No pleural effusions or pneumothorax. Mediastinum: Mediastinal contours appear normal. Heart size is enlarged. Bones and chest wall: No suspicious bony lesions. Overlying soft tissues appear unremarkable. IMPRESSION: No acute pulmonary process. Dictated by: Chanda Raman M.D. on 09/16/2024 at 21:09 Approved by: Chanda Raman M.D. on 09/16/2024 at 21:10
--- NOTE | 2024-09-16 20:56 | ED_ITS ---
HPI - Chest Pain General Chief Complaint: Chest Pain Stated Complaint: CP Time Seen by Provider: 09/16/24 20:52 Source: patient and EMS Mode of arrival: EMS Limitations: no limitations History of Present Illness HPI narrative: 88-year-old male with history of mild dementia, coronary artery disease, AFib on Eliquis presents by EMS from home for chest tightness that occurred earlier this evening. History is obtained with son at bedside. Son states that this evening the patient use his walker to go from the bathroom to his recliner. After sitting in the recliner he grimaced, and stated that his chest felt tight. With patient's history of previous coronary disease the son became concerned and called 911. Son gave 2 nitroglycerin prior to EMS arrival. When asked how the patient was currently feeling he states ?fine, thank you?. He denies complaints at this time. Related Data Home Medications Medication Instructions Recorded Confirmed CoQ-10 400 mg PO QPM ##0 11/21/16 09/08/24 tamsulosin 0.4 mg capsule (Flomax) 0.8 mg PO QPM ##0 11/21/16 09/08/24 [VITAMIN K2] 100 mcg PO QPM ##0 03/06/17 09/08/24 alpha lipoic acid 600 mg capsule 600 mg PO BEDTIME 12/11/18 09/08/24 apixaban 5 mg tablet (Eliquis) 5 mg PO BID 10/26/20 09/08/24 ResMed AirSense Auto 03/27/22 09/08/24 Vitamin D3 See Rx Instructions PO DAILY 06/13/22 09/08/24 empagliflozin 10 mg tablet 10 mg PO BEDTIME 08/29/23 09/08/24 (Jardiance) furosemide 20 mg tablet (Lasix) 40 mg PO DAILY PRN Edema 08/29/23 09/08/24 trospium 20 mg tablet 20 mg PO BID 11/12/23 09/08/24 amlodipine 5 mg tablet 5 mg PO BEDTIME 12/10/23 09/08/24 gabapentin 300 mg capsule 300 mg PO BEDTIME 01/16/24 09/08/24 trospium 60 mg capsule,extended 60 mg PO DAILY 06/06/24 09/08/24 release 24 hr donepezil 10 mg tablet mg PO 09/08/24 09/08/24 lisinopril 5 mg tablet 5 mg PO DAILY 09/08/24 09/08/24 memantine 5 mg tablet 5 mg PO BID 09/08/24 09/08/24 Previous Rx's Medication Instructions Recorded rosuvastatin 5 mg tablet (Crestor) 10 mg (2 x 5 mg) PO .COMPLEX #135 10/09/23 tabs omeprazole 20 mg capsule,delayed 20 mg PO BID #180 caps 12/03/23 release acetaminophen 325 mg tablet 650 mg (2 x 325 mg) PO Q6H #1 tab 12/10/23 docusate sodium 100 mg capsule 100 mg PO BID PRN constipation #1 12/10/23 cap ascorbic acid (vitamin C) 500 mg 500 mg PO BID #180 tabs 12/20/23 tablet spironolactone 25 mg tablet 25 mg PO DAILY #90 tabs 12/20/23 venlafaxine 37.5 mg 37.5 mg PO BEDTIME #90 caps 05/06/24 capsule,extended release 24 hr (Effexor XR) venlafaxine 75 mg capsule,extended 150 mg (2 x 75 mg) PO BEDTIME #180 05/06/24 release 24 hr caps venlafaxine 75 mg tablet,extended 150 mg (2 x 75 mg) PO BEDTIME #180 05/06/24 release 24 hr tabs nitroglycerin 0.4 mg sublingual 0.4 mg sublingual Q5-15M PRN Chest 06/09/24 tablet Pain #20 tabs tirzepatide (weight loss) 2.5 2.5 mg (0.5 mL) SUBCUT QWEEK #2 mL 09/08/24 mg/0.5 mL subcutaneous pen injector Allergies Allergy/AdvReac Type Severity Reaction Status Date / Time No Known Drug Allergies Allergy Verified 09/16/24 20:55 Patient History Medical History Chronic anticoagulation Anemia NSTEMI (non-ST elevated myocardial infarction) History of COVID-19 Peripheral neuropathy Waters's palsy Depression TIA (transient ischemic attack) Memory changes SEAN treated with BiPAP Myocardial infarction (12/2006) Class 1 obesity due to excess calories with body mass index (BMI) of 31.0 to 31.9 in adult Pre-diabetes Gastric reflux Protein-calorie malnutrition, mild Acute GI bleeding Headache Hx of myocardial infarction (Unknown) Hypertension (Unknown) Lumbar disc disease (2013) Polio (1950) Chickenpox Measles Hearing loss (2014) Coronary artery disease (2008) Prostate cancer (2008) Peripheral polyneuropathy (03/06/17) Left foot drop (03/06/17) Vitamin D deficiency (11/21/16) Gastroesophageal reflux disease (06/13/16) Statin intolerance (02/08/16) Spinal stenosis of lumbar region (02/08/16) Pure hypercholesterolemia (02/08/16) History of malignant neoplasm of prostate (04/08/15) Essential hypertension (02/08/16) Coronary artery disease involving [place] coronary artery of [place] heart without angina pectoris (02/08/16) Balance problems (02/08/16) Surgical History Hx of heart artery stent (12/2006) History of prostate surgery (2009) Status post laminectomy Family History Father No problems noted. Mother Cancer Grandfather No problems noted. Grandmother No problems noted. Grandfather No problems noted. Grandmother Cancer Family/Other Stroke Heart attack Coronary artery disease Congestive heart failure Social History marital status: household members: none Smoking Status: Former smoker second hand exposure: No alcohol intake: current substance use type: does not use Smoking Status: Former smoker alcohol intake frequency: holidays/special occasions only Exam Initial Vital Signs Initial Vital Signs: Vital Signs Temperature 98.8 F 09/16/24 20:40 Pulse Rate 87 09/16/24 20:40 Respiratory Rate 20 09/16/24 20:40 Blood Pressure 135/63 09/16/24 20:40 Pulse Oximetry 97 09/16/24 20:40 Oxygen Delivery Method Room Air 09/16/24 20:40 Const: Awake, alert, frail, no acute distress Cardiac: Irregularly irregular rhythm RESP: unlabored, clear bilaterally, no wheezing MSK: No edema, full range of motion, pulses equal Skin: Warm, Dry, intact, no rashes Neuro: AO x2, CN II-XII grossly intact, moves all extremities Course Orders Ordered: ED Orders 09/16/24 20:30 BNP [NT-proBNP (BNP-Adult 18+)] Stat CBC Auto Diff [Complete Blood Count AUTO DIFF] Stat CMP [Comprehensive Metabolic Panel] Stat MAG [Magnesium] Stat PT [Prothrombin Time INR] Stat Troponin & CK Cardiac Panel Stat 09/16/24 20:45 EKG-12 Lead Stat 09/16/24 20:53 Chest [XR chest 1V] Stat 09/16/24 22:19 Trop I [Troponin I] Stat Vital Signs Vital signs: Vital Signs - 8 hr 09/16/24 20:40 09/16/24 21:03 09/16/24 21:15 Temperature 98.8 F Pulse Rate 87 108 H Respiratory Rate 20 20 Blood Pressure 135/63 103/54 L Pulse Oximetry 97 96 Oxygen Delivery Method Room Air 09/16/24 21:15 09/16/24 21:30 09/16/24 21:30 Temperature Pulse Rate 76 70 Respiratory Rate 20 18 Blood Pressure 116/53 L Pulse Oximetry 97 96 Oxygen Delivery Method 09/16/24 22:00 09/16/24 22:01 09/16/24 22:30 Temperature Pulse Rate 121 H 87 Respiratory Rate 18 17 Blood Pressure 119/57 L Pulse Oximetry 97 96 Oxygen Delivery Method 09/16/24 22:31 09/16/24 22:31 09/16/24 23:00 Temperature Pulse Rate 79 76 Respiratory Rate 18 18 Blood Pressure 135/59 L Pulse Oximetry 97 96 Oxygen Delivery Method 09/16/24 23:01 09/16/24 23:01 Temperature Pulse Rate 105 H Respiratory Rate 18 Blood Pressure 132/59 L Pulse Oximetry 96 Oxygen Delivery Method MDM - Chest Pain Differential Diagnosis Differential diagnosis: Likely atypical chest pain, costochondritis and chest pain Lab Data 09/16/24 20:30 09/16/24 20:30 Labs: Lab Results 09/16/24 09/16/24 Range/Units 20:30 22:19 WBC 7.6 (4.5-11.0) X10^3/uL RBC 4.29 L (4.5-5.9) X10^6/uL Hgb 13.7 (13.5-17.5) g/dL Hct 41.4 (41-53) % MCV 96.6 (80-100) fL MCH 32.0 (26-34) PG MCHC 33.1 (30-36) % RDW 14.6 (11.6-14.8) % Plt Count 168 (150-400) X10^3/uL Neut % (Auto) 70.6 (50-75) % Lymph % (Auto) 15.6 L (25-40) % [place] % (Auto) 11.4 (3-14) % Eos % (Auto) 2.1 (2-4) % Baso % (Auto) 0.3 (0-2) % Neut # (Auto) 5400 (9074-4147) /uL Lymph # (Auto) 1200 (1206-7661) /uL [place] # (Auto) 900 (0-900) /uL Eos # (Auto) 200 (0-450) /uL Baso # (Auto) 0 (0-100) /uL PT 13.8 H (9.4-12.5) SECONDS INR 1.2 (0.9-1.3) Sodium 133 L (137-145) mmol/L Potassium 4.7 (3.4-5.1) mmol/L Chloride 102 (98-107) mmol/L Carbon Dioxide 27 (22-32) mmol/L BUN 38 H (9-20) mg/dL Creatinine 1.16 (0.66-1.25) mg/dL Estimated GFR > 60 (>60) mL/min BUN/Creatinine Ratio 32.8 H (6-22) Glucose 99 (80-110) mg/dL Calcium 9.2 (8.4-10.2) mg/dL Magnesium 2.0 (1.6-2.3) mg/dL Total Bilirubin 0.4 (0.2-1.3) mg/dL AST 25 (17-59) IU/L ALT 23 (<50) IU/L Alkaline Phosphatase 50 (38-126) U/L Total Creatine Kinase 48 L (55-170) U/L Troponin I 0.013 0.013 (0.01-0.034) ng/mL NT-Pro-B Natriuret Pep 478 H (<450) pg/mL Total Protein 7.2 (6.3-8.2) g/dL Albumin 4.0 (3.5-5.0) g/dL Globulin 3.2 (1.7-4.1) g/dL Albumin/Globulin Ratio 1.3 (1.0-2.8) Imaging Data Chest x-ray: Radiologist's Impression: PROCEDURE: XR CHEST 1V INDICATIONS: chest pain TECHNIQUE: One view of the chest was acquired. COMPARISON: [facility], CR, XR CHEST 1V, 12/07/2023, 11:22. FINDINGS: Surgical changes and devices: None. Lungs and pleura: Lungs are clear. No pleural effusions or pneumothorax. Mediastinum: Mediastinal contours appear normal. Heart size is enlarged. Bones and chest wall: No suspicious bony lesions. Overlying soft tissues appear unremarkable. IMPRESSION: No acute pulmonary process. Dictated by: Chanda Raman M.D. on 09/16/2024 at 21:09 Approved by: Chanda Raman M.D. on 09/16/2024 at 21:10 ECG Data Interpretation: Atrial fibrillation at 84 beats per minute. No ST T wave changes, no STEMI. MDM Narrative Medical decision making narrative: Nontoxic patient with chest pain earlier this evening. Has been pain-free since prior to arrival. Initial EKG atrial fibrillation without ischemic findings. Heart score technically for based on age and pre-existing risk factors, however story less concerning for ACS and EKG nonischemic. Troponins undetectable x2. Patient has not had any recurrence of chest pain since arrival to the emergency department. Patient and son at bedside counseled on findings, they are eager to go home. ED return precautions discussed. Discharge Plan Departure Patient Disposition: Home Clinical Impression: Chest pain Instructions: DI for Chest Pain Activity Restrictions/Additional Instructions: Your laboratory work, chest x-ray, and EKG today did not show any signs of heart attack. Continue to take all medications as prescribed. Follow up as needed with your primary care doctor and/or book cleaner Prescriptions: No Action trospium 60 mg capsule,extended release 24hr 60 mg PO DAILY Rx Instructions: must be taken on empty stomach at least 1 hour before a meal/food with water only memantine 5 mg tablet 5 mg PO BID lisinopril 5 mg tablet 5 mg PO DAILY donepezil 10 mg tablet PO tirzepatide (weight loss) 2.5 mg/0.5 mL pen injector 2.5 mg SUBCUT QWEEK Qty: 2 0RF Rx Instructions: for 4 weeks alpha lipoic acid 600 mg capsule 600 mg PO BEDTIME tamsulosin [Flomax] 0.4 MG capsule,extended release 24hr 0.8 mg PO QPM Qty: 0 CoQ-10 400 mg PO QPM Qty: 0 [VITAMIN K2] 100 mcg PO QPM Qty: 0 Patient Comments: vitamin K2 MK7 c MenaQ7 venlafaxine [Effexor XR] 37.5 mg capsule,extended release 24hr 37.5 mg PO BEDTIME Qty: 90 3RF Rx Instructions: Take 1 cap in addition to (2) 75mg caps at bedtime daily and 75mg, or formulary equivalent venlafaxine 75 mg tablet extended release 24hr 150 mg PO BEDTIME Qty: 180 3RF Rx Instructions: Take 2 tabs at bedtime daily in addition to a 37.5mg at bedtime daily, or equivalent venlafaxine 75 mg capsule,extended release 24hr 150 mg PO BEDTIME Qty: 180 3RF Rx Instructions: Take 2 caps in addition 37.5mg capsule daily nitroglycerin 0.4 mg tablet, sublingual 0.4 mg SL Q5-15M PRN (Reason: Chest Pain) Qty: 20 11RF Eliquis 5 mg tablet 5 mg PO BID Hold Instructions: sugery Vitamin D3 1,500 unit See Rx Instructions PO DAILY Rx Instructions: 7388-1979 IU daily orally daily; furosemide [Lasix] 20 mg tablet 40 mg PO DAILY PRN (Reason: Edema) Jardiance 10 mg tablet 10 mg PO BEDTIME rosuvastatin [Crestor] 5 mg tablet 10 mg PO .COMPLEX Qty: 135 3RF Patient Comments: patient's daughter reports 10 mg Q2D alternating with 15 mg Rx Instructions: 10 mg orally alternating every other day with 5mg, for hyperlipidemia; spironolactone 25 mg tablet 25 mg PO DAILY Qty: 90 1RF Rx Instructions: Take 1 tab by mouth daily ascorbic acid (vitamin C) 500 mg tablet 500 mg PO BID Qty: 180 1RF Rx Instructions: Administer with Iron gabapentin 300 mg capsule 300 mg PO BEDTIME Rx Instructions: Managed by Dr Arndt/Neurologist omeprazole 20 mg capsule,delayed release(/EC) 20 mg PO BID Qty: 180 3RF Rx Instructions: Take 1 cap by mouth twice daily trospium 20 mg Tablet 20 mg PO BID Rx Instructions: administer on an empty stomach acetaminophen 325 mg Tablet 650 mg PO Q6H Qty: 1 0RF docusate sodium 100 mg Capsule 100 mg PO BID PRN (Reason: constipation) Qty: 1 0RF amlodipine 5 mg tablet 5 mg PO BEDTIME (DME) ResMed AirSense Auto See Rx Instructions .Route .MEDSUPPLY Rx Instructions: CPAP Min: 6 Max: 16 DME: ROTECH ABAD: 02/09/21 Referrals: Gauri Mensah MD [Primary Care Provider] - Stand Alone Forms: Patient Portal/API/Survey
[2024-09-16 21:17] LABS: Add Manual Diff / Slide Review NO; Basophils Absolute Auto 0 /uL (0-100); Basophils Percent Auto 0.3 % (0-2); Eosinophils Absolute Auto 200 /uL (0-450); Eosinophils Percent Auto 2.1 % (2-4); Hematocrit 41.4 % (41-53); Hemoglobin 13.7 g/dL (13.5-17.5); Lymphocytes Absolute Auto 1200 /uL (1100-4500); Lymphocytes Percent Auto 15.6 % (25-40); Mean Corpuscular HGB Conc 33.1 % (30-36); Mean Corpuscular Volume 96.6 fL (80-100); Monocytes Absolute Auto 900 /uL (0-900); Monocytes Percent Auto 11.4 % (3-14); Neutrophils Absolute Auto 5400 /uL (1500-7000); Neutrophils Percent Auto 70.6 % (50-75); Platelet Count 168 X10^3/uL (150-400); Red Blood Cell Count 4.29 X10^6/uL (4.5-5.9); Red Cell Distribution Width 14.6 % (11.6-14.8); White Blood Cell Count 7.6 X10^3/uL (4.5-11.0)
[2024-09-16 21:21] LABS: INR 1.2 (0.9-1.3); Prothrombin Time 13.8 SECONDS (9.4-12.5)
[2024-09-16 21:26] LABS: Alanine Aminotransferase 23 IU/L (<50); Albumin Globulin Ratio 1.3 (1.0-2.8); Alkaline Phosphatase 50 U/L (38-126); Aspartate Aminotransferase 25 IU/L (17-59); BUN Creatinine Ratio 32.8 (6-22); Bilirubin Total 0.4 mg/dL (0.2-1.3); Blood Urea Nitrogen 38 mg/dL (9-20); Calcium 9.2 mg/dL (8.4-10.2); Carbon Dioxide 27 mmol/L (22-32); Chloride 102 mmol/L (98-107); Creatine Kinase 48 U/L (55-170); Estimated Glomerular Filt Rate > 60 mL/min (>60); Globulin 3.2 g/dL (1.7-4.1); Glucose 99 mg/dL (80-110); HEMOLYSIS < 15 (0-50); Potassium 4.7 mmol/L (3.4-5.1); Sodium 133 mmol/L (137-145); Total Protein 7.2 g/dL (6.3-8.2)
[2024-09-16 21:37] LABS: NT-proBNP (BNP-Adult 18+) 478 pg/mL (<450); Troponin I 0.013 ng/mL (0.01-0.034)
[2024-09-16 22:52] LABS: Troponin I 0.013 ng/mL (0.01-0.034)
== END 2024-09-16 23:31 | disposition home or self-care (01) ==
PROVIDERS: Emergency Provider Emergency Medicine; Family Provider Student in an Organized Health Care Education/Training Program; PCP Family Medicine
DX: R07.9 Chest pain, unspecified (principal)
CPT/HCPCS: 36415; 71045; 80053; 82550; 83735; 83880; 84484; 85025; 85610; 93005; 99281; 99284

== ENCOUNTER → 2024-09-23 08:31 | Outpatient (CLI) | payer MEDICARE, OTHER, SELFPAY ==
[2023-12-06 06:39] VITALS: BMI 32.8
[2024-09-23 12:35] LABS: Luteinizing Hormone 8.18 mIU/mL
[2024-09-29 06:36] LABS: Percent Free Testosterone 3.02 % (1.50-4.20); Testosterone Free 1.88 ng/dL (5.00-21.00); Testosterone Total 62.1 ng/dL (264.0-916.0)
== END ==
PROVIDERS: Family Provider Student in an Organized Health Care Education/Training Program; PCP Family Medicine; Referring Provider Physician Assistant Medical; Visit Provider Physician Assistant Medical
DX: R79.89 Other specified abnormal findings of blood chemistry (principal)
CPT/HCPCS: 36415; 83002; 84402; 84403

== ENCOUNTER → 2024-11-06 11:25 | Outpatient (CLI) | payer MEDICARE, OTHER, SELFPAY ==
[2023-12-06 06:39] VITALS: BMI 32.8
[2024-11-06 12:22] LABS: Hematocrit 41.5 % (41-53); Hemoglobin 13.6 g/dL (13.5-17.5); Mean Corpuscular HGB Conc 32.8 % (30-36); Mean Corpuscular Volume 97.5 fL (80-100); Platelet Count 152 X10^3/uL (150-400); Red Blood Cell Count 4.25 X10^6/uL (4.5-5.9); Red Cell Distribution Width 14.2 % (11.6-14.8); White Blood Cell Count 6.2 X10^3/uL (4.5-11.0)
[2024-11-06 13:03] LABS: BUN Creatinine Ratio 27.1 (6-22); Blood Urea Nitrogen 29 mg/dL (9-20); Calcium 8.9 mg/dL (8.4-10.2); Carbon Dioxide 21 mmol/L (22-32); Chloride 105 mmol/L (98-107); Estimated Glomerular Filt Rate > 60 mL/min (>60); Glucose 126 mg/dL (80-110); HEMOLYSIS < 15 (0-50); Potassium 4.5 mmol/L (3.4-5.1); Sodium 136 mmol/L (137-145)
[2024-11-06 13:09] LABS: NT-proBNP (BNP-Adult 18+) 448 pg/mL (<450)
[2024-11-06 13:32] LABS: Prostate Specific Antigen < 0.064 ng/mL (0.10-4.00)
== END ==
LOC: LAB 11:27
PROVIDERS: PCP Family Medicine; Referring Provider Physician Assistant; Visit Provider Physician Assistant
DX: I50.22 Chronic systolic (congestive) heart failure (principal); C61 Malignant neoplasm of prostate
CPT/HCPCS: 36415; 80048; 83880; 84153; 85027